=== PATIENT | female | born 1985 | race Caucasian/White ===

== ENCOUNTER 2021-03-28 09:47 | Inpatient (IN) | payer BC ==
[2021-03-27 22:00] VITALS: BP 93/51
[~2021-03-28] VITALS: Ht 162.5 cm; Wt 98.9 kg
[2021-03-28] MEDS ORDERED: ONDANSETRON 4 MG/2 ML (SDV) Z0FRAN IVP ONE (10:30)
--- NOTE | 2021-03-28 10:43 | ED General ---
General Chief Complaint: General Problems/Pain Stated Complaint: POSSIBLE SEPSIS Source of Information: Patient Exam Limitations: No Limitations History of Present Illness Date Seen by Provider: Mar 28, 2021 Time Seen by Provider: 10:37 Initial Comments 36-year-old female to ER from wound care with reports of nausea vomiting diarrhea hypotension. No fevers. Symptoms began 03/24/2021. She resides at [facility] (formerly [facility]) following a prolonged course of intubation for Covid in November of this year initially at [facility] then at [facility] in [place], then back to [facility] and she has been residing at [facility] (formerly [facility]) for about 1 week now. She is being seen by wound care for a sacral ulcer which she believes is healing. She does currently feel nauseated. She has a PICC line but is not receiving infusions in it for a week or so. Timing/Duration: 4-5 Days Severity: Moderate Associated Systoms: Nausea/Vomiting Allergies and Home Medications Allergies Coded Allergies: No Known Drug Allergies (Unverified , 03/28/21) Patient Home Medication List Home Medication List Reviewed: Yes Review of Systems Review of Systems Constitutional: see HPI EENTM: see HPI Respiratory: no symptoms reported Cardiovascular: no symptoms reported Gastrointestinal: No abdominal pain; diarrhea, nausea, vomiting Genitourinary: no symptoms reported Musculoskeletal: no symptoms reported Skin: no symptoms reported Psychiatric/Neurological: No Symptoms Reported Hematologic/Lymphatic: No Symptoms Reported Immunological/Allergic: no symptoms reported Physical Exam Vital Signs Vital Signs - First Documented 03/28/21 10:02 Temp 35.7 Pulse 97 Resp 18 B/P (MAP) 101/70 (80) Pulse Ox 96 O2 Delivery Room Air Capillary Refill : Height, Weight, BMI Height: '" Weight: lbs. oz. kg; BMI Method: General Appearance: No Apparent Distress, WD/WN, Other Eyes: Bilateral Eye Normal Inspection, Bilateral Eye PERRL, Bilateral Eye EOMI Neck: Full Range of Motion, Normal Inspection Respiratory: No Accessory Muscle Use, No Respiratory Distress Cardiovascular: Regular Rate, Rhythm, Normal Peripheral Pulses Gastrointestinal: Normal Bowel Sounds, Non Tender, Soft Extremity: Normal Capillary Refill, Normal Inspection Neurologic/Psychiatric: Alert, Oriented x3 Skin: Normal Color, Warm/Dry Focused Exam Lactate Level 03/28/21 10:37: Lactic Acid Level 3.85*H 03/28/21 12:37: Lactic Acid Level 3.08*H Lactic Acid Level Laboratory Tests Test 03/28/21 10:37 03/28/21 12:37 Lactic Acid Level 3.85 MMOL/L (0.50-2.00) *H 3.08 MMOL/L (0.50-2.00) *H Progress/Results/Core Measures Suspected Sepsis SIRS Temperature: Pulse: Respiratory Rate: Laboratory Tests 03/28/21 10:37: White Blood Count 7.7 Blood Pressure / Mean: 03/28/21 10:37: Lactic Acid Level 3.85*H 03/28/21 12:37: Lactic Acid Level 3.08*H Laboratory Tests 03/28/21 10:37: Creatinine 0.81, INR Comment 1.4, Platelet Count 410H, Total Bilirubin 0.2 Results/Orders Lab Results Laboratory Tests Test 03/28/21 10:37 03/28/21 12:08 03/28/21 12:37 Range/Units White Blood Count 7.7 4.3-11.0 10^3/uL Red Blood Count 3.19 L 3.80-5.11 10^6/uL Hemoglobin 9.5 L 11.5-16.0 g/dL Hematocrit 32 L 35-52 % Mean Corpuscular Volume 99 80-99 fL Mean Corpuscular Hemoglobin 30 25-34 pg Mean Corpuscular Hemoglobin Concent 30 L 32-36 g/dL Red Cell Distribution Width 15.4 H 10.0-14.5 % Platelet Count 410 H 130-400 10^3/uL Mean Platelet Volume 8.7 L 9.0-12.2 fL Immature Granulocyte % (Auto) 0 % Neutrophils (%) (Auto) 66 42-75 % Lymphocytes (%) (Auto) 23 12-44 % Monocytes (%) (Auto) 8 0-12 % Eosinophils (%) (Auto) 2 0-10 % Basophils (%) (Auto) 1 0-10 % Neutrophils # (Auto) 5.1 1.8-7.8 10^3/uL Lymphocytes # (Auto) 1.8 1.0-4.0 10^3/uL Monocytes # (Auto) 0.6 0.0-1.0 10^3/uL Eosinophils # (Auto) 0.2 0.0-0.3 10^3/uL Basophils # (Auto) 0.1 0.0-0.1 10^3/uL Immature Granulocyte # (Auto) 0.0 0.0-0.1 10^3/uL Prothrombin Time 17.7 H 12.2-14.7 SEC INR Comment 1.4 0.8-1.4 Activated Partial Thromboplast Time 30 24-35 SEC Sodium Level 142 135-145 MMOL/L Potassium Level 3.5 L 3.6-5.0 MMOL/L Chloride Level 108 H 98-107 MMOL/L Carbon Dioxide Level 19 L 21-32 MMOL/L Anion Gap 15 H 5-14 MMOL/L Blood Urea Nitrogen 26 H 7-18 MG/DL Creatinine 0.81 0.60-1.30 MG/DL Estimat Glomerular Filtration Rate 79 BUN/Creatinine Ratio 32 Glucose Level 99 70-105 MG/DL Lactic Acid Level 3.85 *H 3.08 *H 0.50-2.00 MMOL/L Calcium Level 7.7 L 8.5-10.1 MG/DL Corrected Calcium 9.3 8.5-10.1 MG/DL Total Bilirubin 0.2 0.1-1.0 MG/DL Aspartate Amino Transf (AST/SGOT) 22 5-34 U/L Alanine Aminotransferase (ALT/SGPT) 19 0-55 U/L Alkaline Phosphatase 132 40-136 U/L Total Protein 4.3 L 6.4-8.2 GM/DL Albumin 2.0 L 3.2-4.5 GM/DL Procalcitonin 0.07 <0.10 NG/ML Urine Color YELLOW Urine Clarity SL CLOUDY Urine pH 6.0 5-9 Urine Specific [place] >=1.030 1.016-1.022 Urine Protein 2+ H NEGATIVE Urine Glucose (UA) TRACE H NEGATIVE Urine Ketones NEGATIVE NEGATIVE Urine Nitrite POSITIVE H NEGATIVE Urine Bilirubin 1+ H NEGATIVE Urine Urobilinogen 1.0 < = 1.0 MG/DL Urine Leukocyte Esterase 1+ H NEGATIVE Urine RBC (Auto) 3+ H NEGATIVE Urine RBC 25-50 H /HPF Urine WBC 50-100 H /HPF Urine Squamous Epithelial Cells NONE /HPF Urine Crystals PRESENT H /LPF Urine Calcium Oxalate Crystals RARE H /LPF Urine Bacteria LARGE H /HPF Urine Casts NONE /LPF Urine Mucus NEGATIVE /LPF Urine Culture Indicated CULTURE PENDING My Orders Orders - LILLIAN BORJA SATELLITE COMMUNICATIONS OPERATOR Cbc With Automated Diff (03/28/21:) Comprehensive Metabolic Panel (03/28/21 10:) Blood Culture (03/28/21:) Sputum Culture (03/28/21) Urinalysis (03/28/21:) Urine Culture (03/28/21) Protime With Inr (03/28/21:) Partial Thromboplastin Time (03/28/21:) Chest 1 View, Ap/Pa Only (03/28/21:) Ed Iv/Invasive Line Start (03/28/21:) Ed Iv/Invasive Line Start (03/28/21:) Vital Signs Adult Sepsis Patie Q15M (03/28/21:) O2 (03/28/21:) Remove Rings In Anticipation O (03/28/21) Lactic Acid Analyzer (03/28/21:) Lactated Ringers (Lr 1000 Ml Iv Solution (03/28/21 10:30) Ondansetron Injection (Zofran Injectio (03/28/21 10:30) Procalcitonin (Pct) (03/28/21 11:11) Lactated Ringers (Lr 1000 Ml Iv Solution (03/28/21 11:15) Lactated Ringers (Lr 1000 Ml Iv Solution (03/28/21 12:30) Ceftriaxone 1 Gm Iv (Pre-Mix) (Rocephin (03/29/21 09:00) Ceftriaxone (Rocephin) (03/28/21 12:35) Water (Sterile) For Injection (Sterile W (03/28/21 12:36) Medications Given in ED Current Medications Medications Dose Ordered Sig/Mindy Route Start Time Stop Time Status Last Admin Dose Admin Ondansetron HCl 4 mg ONCE ONCE IVP 03/28/21 10:30 03/28/21 10:31 DC 03/28/21 10:52 4 MG Vital Signs/I&O 03/28/21 10:02 Temp 35.7 Pulse 97 Resp 18 B/P (MAP) 101/70 (80) Pulse Ox 96 O2 Delivery Room Air Capillary Refill : Departure Communication (Admissions) Family Conversation 1342-patient remains alert and oriented very pleasant. 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 She is very pleasant. Currently blood pressure 93/55 heart rate 87. I suspect she is just volume depleted from nausea and vomiting. She is afebrile. However will admit to trend the lactic acid, hydrate with IV fluids and empirically treat the UTI with Rocephin. Patient is agreeable with this plan. Dr. Frederick agrees to admit. NAME: JAMMIE BUTLER [facility] REC#: [id number] PT STATUS: REG ER : 1985 PHYSICIAN: LILLIAN BORJA APRN ADMIT DATE: 03/28/21/ER Draft Date of Exam:03/28/21 CHEST 1 VIEW, AP/PA ONLY EXAMINATION: Chest 1 view HISTORY: sepsis COMPARISON: None available. FINDINGS: Heart size and pulmonary vasculature are normal. The lungs are clear without consolidation, pleural effusion, or pneumothorax. The osseous structures are intact. A right-sided PICC line is present with the tip projecting over the right brachiocephalic junction. IMPRESSION: 1. No acute radiographic abnormality in the chest. Dictated on workstation # [id number] Dict: 03/28/21 1121 Trans: 03/28/[address] [place] [address] [id number] Interpreted by: SHANNAN ARNETT DO Electronically signed by: Impression Primary Impression: Urinary tract infection Additional Impression: Sepsis Disposition: 01 HOME, SELF-CARE Condition: Stable Admissions Decision to Admit Reason: Admit from ER (General) Decision to Admit/Date: Mar 28, 2021 Time/Decision to Admit Time: 13:43 Departure-Patient Inst. Decision time for Depature: 13:02 Referrals: ELIANE JOSÉ MD (PCP/Family) Primary Care Physician Patient Instructions: Urinary Tract Infection, Adult (DC) LILLIAN BORJA APRN Mar 28, 2021 10:43
[2021-03-28 10:48] LABS: BASOPHILS # (AUTO) 0.1 10^3/uL (0.0-0.1); BASOPHILS % (AUTO) 1 % (0-10); EOSINOPHILS # (AUTO) 0.2 10^3/uL (0.0-0.3); EOSINOPHILS % (AUTO) 2 % (0-10); HEMATOCRIT 32 % (35-52); HEMOGLOBIN 9.5 g/dL (11.5-16.0); LYMPHOCYTES # (AUTO) 1.8 10^3/uL (1.0-4.0); LYMPHOCYTES % (AUTO) 23 % (12-44); MEAN CORPUSCULAR HEMOGLOBIN 30 pg (25-34); MEAN CORPUSCULAR HGB CONC 30 g/dL (32-36); MEAN CORPUSCULAR VOLUME 99 fL (80-99); MEAN PLATELET VOLUME 8.7 fL (9.0-12.2); MONOCYTES # (AUTO) 0.6 10^3/uL (0.0-1.0); MONOCYTES % (AUTO) 8 % (0-12); NEUTROPHILS # (AUTO) 5.1 10^3/uL (1.8-7.8); NEUTROPHILS % (AUTO) 66 % (42-75); PLATELET COUNT 410 10^3/uL (130-400); WHITE BLOOD COUNT 7.7 10^3/uL (4.3-11.0)
[2021-03-28] MEDS: LACTATED RINGERS 1,000 ML IV SCH ×4 (10:52→20:09)
[2021-03-28 11:01] LABS: POTASSIUM 3.5 MMOL/L (3.6-5.0)
[2021-03-28 11:02] LABS: CALCIUM 7.7 MG/DL (8.5-10.1)
[2021-03-28 11:04] LABS: TOTAL PROTEIN 4.3 GM/DL (6.4-8.2)
[2021-03-28 11:05] LABS: BILIRUBIN,TOTAL 0.2 MG/DL (0.1-1.0)
[2021-03-28 11:06] LABS: INR 1.4 (0.8-1.4); PROTHROMBIN TIME PATIENT 17.7 SEC (12.2-14.7)
[2021-03-28 11:07] LABS: CREATININE SERUM 0.81 MG/DL (0.60-1.30)
[2021-03-28] MEDS ORDERED: LACTATED RINGERS 1,000 ML IV SCH ×2 (11:15→12:30)
--- NOTE | 2021-03-28 11:25 | Diagnostic Imaging Report ---
EXAMINATION: Chest 1 view HISTORY: sepsis COMPARISON: None available. FINDINGS: Heart size and pulmonary vasculature are normal. The lungs are clear without consolidation, pleural effusion, or pneumothorax. The osseous structures are intact. A right-sided PICC line is present with the tip projecting over the right brachiocephalic junction. IMPRESSION: 1. No acute radiographic abnormality in the chest. Dictated by: Dictated on workstation # [id number]
[2021-03-28 12:14] LABS: CLARITY,URINE SL CLOUDY; COLOR,URINE YELLOW; GLUCOSE, URINE (UA) TRACE (NEGATIVE); KETONES,URINE NEGATIVE (NEGATIVE); LEUKOCYTE ESTERASE ,URINE 1+ (NEGATIVE); NITRITE,URINE POSITIVE (NEGATIVE); PROTEIN,URINE 2+ (NEGATIVE)
[2021-03-28 12:22] LABS: BACTERIA,URINE LARGE /HPF; BILIRUBIN,URINE 1+ (NEGATIVE); CALCIUM OXALATE CRYSTALS,UR RARE /LPF; RBC,URINE 25-50 /HPF; WBC,URINE 50-100 /HPF
[2021-03-28] MEDS ORDERED: cefTRIAXone 1,000 MG VIAL ONE (12:35)
[2021-03-28] MEDS ORDERED: WATER (STERILE) FOR INJECTION 10 ML ONE (12:36)
[2021-03-28] MEDS ORDERED: MICO14CR7 TP (15:32)
[2021-03-28] MEDS ORDERED: OXYB5TAB13 PO (15:32)
[2021-03-28] MEDS ORDERED: LACT1CAP7 PO (15:32)
[2021-03-28] MEDS ORDERED: SERT-413 PO (15:32)
[2021-03-28] MEDS ORDERED: RT-ALBUINH IH (15:32)
[2021-03-28] MEDS ORDERED: FERR325T5 PO (15:32)
[2021-03-28] MEDS ORDERED: APIX5TAB PO (15:32)
[2021-03-28] MEDS ORDERED: ATEN25TA PO (15:32)
[2021-03-28] MEDS ORDERED: MULT-1136 PO (15:32)
[2021-03-28] MEDS ORDERED: HYDR-3817 PO (15:32)
[2021-03-28] MEDS ORDERED: ACET325T38 PO (15:32)
[2021-03-28] MEDS ORDERED: LOPE2TAB48 PO (15:32)
[2021-03-28] MEDS ORDERED: NALO4SPR (15:32)
[2021-03-28] MEDS ORDERED: ONDA4TAB11 PO (15:32)
[2021-03-28] MEDS ORDERED: ATOR40TA70 PO (15:32)
[2021-03-28] MEDS ORDERED: MESA250C PO (15:32)
[2021-03-28] MEDS ORDERED: MELA5TAB14 PO (15:32)
[2021-03-28] MEDS ORDERED: ERGO1250 PO (15:32)
[2021-03-28] MEDS ORDERED: ASPI-999 PO (15:32)
[2021-03-28] MEDS ORDERED: COLL30OI TP (15:36)
[2021-03-28] MEDS ORDERED: BALS60OI TP (15:36)
[2021-03-28 16:00] VITALS: BP 104/69
[2021-03-28 20:08] VITALS: BP 97/61
[2021-03-28 22:20] VITALS: BP 94/59
[2021-03-28 23:36] VITALS: BP 89/54
[2021-03-28] MEDS ORDERED: NS IV 1000 ML 1,000 ML ONE (23:51)
[2021-03-28 23:57] VITALS: BP 96/58
[2021-03-29] MEDS ORDERED: NS IV 1000 ML 1,000 ML IV ONE
[2021-03-29 00:19] VITALS: BP 91/55
[2021-03-29 00:37] VITALS: BP 92/58
[2021-03-29 00:51] VITALS: BP 86/42
[2021-03-29 00:58] VITALS: BP 80/54
[2021-03-29] MEDS: ONDANSETRON 4 MG/2 ML (SDV) Z0FRAN IVP PRN ×2 (01:31→13:27)
[2021-03-29 02:38] LABS: BILIRUBIN,URINE NEGATIVE (NEGATIVE); CLARITY,URINE SL CLOUDY; COLOR,URINE YELLOW; GLUCOSE, URINE (UA) NEGATIVE (NEGATIVE); KETONES,URINE NEGATIVE (NEGATIVE); LEUKOCYTE ESTERASE ,URINE 3+ (NEGATIVE); NITRITE,URINE POSITIVE (NEGATIVE); PROTEIN,URINE 1+ (NEGATIVE)
[2021-03-29 02:49] LABS: BACTERIA,URINE MODERATE /HPF; SQUAMOUS EPITHELIAL CELL,UR 0-2 /HPF; WBC,URINE 25-50 /HPF
[2021-03-29 05:42] LABS: BASOPHILS % (AUTO) 0 % (0-10); EOSINOPHILS # (AUTO) 0.2 10^3/uL (0.0-0.3); EOSINOPHILS % (AUTO) 5 % (0-10); HEMATOCRIT 25 % (35-52); HEMOGLOBIN 7.4 g/dL (11.5-16.0); LYMPHOCYTES # (AUTO) 0.7 10^3/uL (1.0-4.0); LYMPHOCYTES % (AUTO) 14 % (12-44); MEAN CORPUSCULAR HEMOGLOBIN 30 pg (25-34); MEAN CORPUSCULAR HGB CONC 30 g/dL (32-36); MEAN CORPUSCULAR VOLUME 100 fL (80-99); MEAN PLATELET VOLUME 8.8 fL (9.0-12.2); MONOCYTES # (AUTO) 0.4 10^3/uL (0.0-1.0); MONOCYTES % (AUTO) 8 % (0-12); NEUTROPHILS # (AUTO) 3.7 10^3/uL (1.8-7.8); NEUTROPHILS % (AUTO) 73 % (42-75); PLATELET COUNT 302 10^3/uL (130-400); WHITE BLOOD COUNT 5.1 10^3/uL (4.3-11.0)
[2021-03-29 05:56] LABS: ALBUMIN 1.5 GM/DL (3.2-4.5); POTASSIUM 3.4 MMOL/L (3.6-5.0)
[2021-03-29 05:57] LABS: CALCIUM 6.8 MG/DL (8.5-10.1)
[2021-03-29 05:59] LABS: TOTAL PROTEIN 3.3 GM/DL (6.4-8.2)
[2021-03-29 06:00] LABS: BILIRUBIN,TOTAL 0.2 MG/DL (0.1-1.0)
[2021-03-29 06:02] LABS: CREATININE SERUM 0.61 MG/DL (0.60-1.30); PHOSPHORUS 4.2 MG/DL (2.3-4.7)
[2021-03-29 06:05] LABS: MAGNESIUM 1.2 MG/DL (1.6-2.4)
[2021-03-29] MEDS ORDERED: MAGNESIUM 1 GM/100 ML IVPB 400 ML IV ONE (06:14)
[2021-03-29] MEDS ORDERED: POTASSIUM CL 10MEQ/50ML IVPB 100 ML IV ONE (06:14)
[2021-03-29] MEDS: POTASSIUM CL 10MEQ/50ML IVPB 50 ML IV SCH ×2 (06:23→08:46)
[2021-03-29] MEDS: MAGNESIUM 1 GM/100 ML IVPB 100 ML IV SCH ×3 (06:23→08:47)
[2021-03-29] MEDS: LACTATED RINGERS 1,000 ML IV SCH ×3 (06:24→18:15)
[2021-03-29] MEDS ORDERED: cefTRIAXone 1 GM PRE-MIX 50 ML IV SCH (09:00)
[2021-03-29] MEDS ORDERED: ALBUMIN 25% 25 GM/100 ML 100 ML IV PRN (09:45)
--- NOTE | 2021-03-29 09:50 | Tele-ICU Consult ---
History of Present Illness History of Present Illness Date Seen by Provider: Mar 29, 2021 Time Seen by Provider: 09:50 Date of Admission Allergies and Home Medications Allergies Coded Allergies: No Known Drug Allergies (Unverified , 03/28/21) Home Medications Acetaminophen 325 Mg Tablet, 650 MG PO Q4H PRN for PAIN-MILD (1-4), (Reported) Albuterol Sulfate 1 Puff Puff, 2 PUFF IH Q6H PRN for SHORTNESS OF BREATH, (Reported) Apixaban 5 Mg Tablet, 5 MG PO BID, (Reported) Aspirin 81 Mg Tab.chew, 81 MG PO DAILY, (Reported) Atenolol 25 Mg Tablet, 25 MG PO BID, (Reported) HOLD FOR SBP <100 OR PULSE <60 Atorvastatin Calcium 40 Mg Tablet, 40 MG PO HS, (Reported) Balsam [place] Oil 60 Gm Oint...g., 1 APPLIC TP UD, (Reported) APPLY TO SACRUM WITH EVERY SHIFT CHANGE Collagenase 30 Gm Oint..gm., 1 APPLIC TP BID, (Reported) APPLY TO SACRAL WOUND EVERY DAY AND MARKETER Ergocalciferol (Vitamin D2) 1,250 Mcg Capsule, 1,250 MCG PO MON, (Reported) Ferrous Sulfate 325 Mg Tablet.dr, 325 MG PO DAILY, (Reported) Hydrocodone/Acetaminophen 1 Each Tablet, 1 EACH PO QID, (Reported) Lactobacillus Acidophilus/Pect 1 Each Capsule, 1 EACH PO BID, (Reported) Loperamide HCl 2 Mg Tablet, 2 MG PO DAILY, (Reported) Melatonin 5 Mg Tablet, 5 MG PO HS, (Reported) Mesalamine 250 Mg Capsule.er, 250 MG PO TID, (Reported) Miconazole Nitrate 14 Gm Cream..g., 1 APPLIC TP Q8H PRN for YEAST, (Reported) Multivitamin 1 Each Tablet, 1 EACH PO DAILY, (Reported) Naloxone HCl 4 Mg Reform, 1 SPRAYS NA UD PRN for OVERDOSE, (Reported) USE 1 SPRAY IN 1 NOSTRIL AND MAY REPEAT ALTERNATING NOSTRIL EVERY 2-3 MINUTES UNTIL RESPONSIVE OR EMS ARRIVES Ondansetron 4 Mg Tab.rapdis, 4 MG PO Q8H PRN for NAUSEA/VOMITING-1ST LINE, (Reported) Oxybutynin Chloride 5 Mg Tablet, 5 MG PO TID, (Reported) Sertraline HCl 50 Mg Tablet, 50 MG PO DAILY, (Reported) Past Medical/Social/Family Hx Patient Social History Tobacco Use?: No Substance use?: No Alcohol Use?: No Pt stated abuse/neglect: No Immunizations Up To Date Influenza Vaccine Up-to-Date: No; Not Current Tetanus Booster (TDap): Less Than 5 Years Hepatitis A: Yes Hepatitis B: Yes TB Skin Test: Negative Current Status status: No status: No Advance Directives: No Primary Language: Bruneian Preferred Spoken Language: Bruneian Review of Systems Constitutional: see HPI Sepsis Event Evaluation Height, Weight, BMI Height: '" Weight: lbs. oz. kg; 32.94 BMI Method: Exam Exam Patient acknowledged, consented, and participated in this virtual visit which was conducted using real time audio/video Vital Signs Date Time Temp Pulse Resp B/P (MAP) Pulse Ox O2 Delivery O2 Flow Rate FiO2 03/29/21 08:23 36.6 03/29/21 07:00 109 03/29/21 06:00 103 20 80/36 99 Nasal Cannula 1.00 03/29/21 05:00 95 20 102/85 98 Nasal Cannula 1.00 03/29/21 04:00 104 20 101/53 98 Nasal Cannula 1.00 03/29/21 03:33 36.4 03/29/21 03:00 107 23 98/50 98 Nasal Cannula 1.00 03/29/21 02:45 107 22 90/47 99 Nasal Cannula 1.00 03/29/21 02:30 106 22 76/56 98 Nasal Cannula 1.00 03/29/21 02:22 Nasal Cannula 1.00 03/29/21 02:15 110 20 96/48 99 Nasal Cannula 2.00 03/29/21 02:00 113 17 99/56 100 Nasal Cannula 2.00 03/29/21 01:10 38.2 122 16 99/52 97 Nasal Cannula 2.00 03/29/21 01:00 109 03/29/21 00:58 80/54 (63) 03/29/21 00:51 107 86/42 (57) 03/29/21 00:37 109 92/58 (69) 03/29/21 00:19 115 91/55 (67) 03/28/21 23:57 109 96/58 (71) 03/28/21 23:36 37.5 110 16 89/54 (66) 97 Nasal Cannula 2.00 03/28/21 22:57 Nasal Cannula 2.00 03/28/21 22:20 109 18 94/59 (71) Nasal Cannula 2.00 03/28/21 20:08 37.0 99 20 97/61 (73) 97 Nasal Cannula 2.00 03/28/21 20:00 Nasal Cannula 2.00 03/28/21 19:00 97 03/28/21 16:00 36.6 74 20 104/69 (81) 100 Nasal Cannula 2.00 03/28/21 15:51 Room Air 03/28/21 13:58 65 18 92/55 94 Nasal Cannula 2.00 03/28/21 11:00 86 18 101/94 95 Room Air 03/28/21 10:02 35.7 97 18 101/70 (80) 96 Room Air I & O 03/29/21 07:00 Intake Total 4200 ml Output Total 950 ml Balance 3250 ml Height & Weight Height: '" Weight: lbs. oz. kg; 32.94 BMI Method: General Appearance: No Apparent Distress, WD/WN, Other Neck: Full Range of Motion, Normal Inspection Respiratory: No Accessory Muscle Use, No Respiratory Distress Cardiovascular: Regular Rate, Rhythm, Normal Peripheral Pulses Capillary Refill: Less Than 3 Seconds Extremity: Normal Capillary Refill, Normal Inspection Neurologic/Psychiatric: Alert, Oriented x3 Skin: Normal Color, Warm/Dry Results Lab Laboratory Tests 03/28/21 10:37 03/29/21 05:35 Assessment/Plan Assessment/Plan (Tele-ICU Physician , consultation) Available chart/ vitals / labs / Images reviewed H&P is from ER notes Patient's information available about PMH, Shx, Fhx allergy reviewed in EMR. ROS as per chart and RN report Now in ICU, hemodynamically stable Video assessment done using teleICU camera, rest of exam as per RN Discussed with RN. Consultants: Hospital course: 03/29-nausea vomiting diarrhea hypotension. A/P Severe sepsis, Infection source is not immediately obvious . +UTI, wound , diarrhea -Received 2000 ml crystalloids for hypotension and lactate. -Continue hydration - ? recentlt stopped steroids - ? drenal insufficiency Suspected UTI -chronic thornton =- replaced on ER 03/29 - empirically treat the UTI with Rocephin 03/29 Diarrhea -not in hospital Anemia - Hb drop frpm 9.5 to 7.4 , most likely with hydration - follow on Eliquis Coagulopathy - mild- INR 1.4 --on Eliquis and ASA - ? inducation- ? post covid S/p prolonged course of intubation for Covid in November - extubated sacral ulcer stage IV - wound team to follow up start nutritions Lines : periph (Central Line Necessity Reviewed) Thornton: chronic thornton =- replaced on ER 03/29 OG: Nutrition: po Analgesia: Anxiety/ delirium VTE Prophylaxis: eliquis Stress Ulcer Prophylaxis: po Glycemic Control: Plans in collaboration with bedside consultants and IM MDs. Discussed with RN to reach out if any questions or concerns A total of 33 minutes of critical care time was devoted to this patient today, required to treat and/or prevent further deterioration of critical care condition ( as above ) . NEHA CARVAJAL MD Mar 29, 2021 09:50
--- NOTE | 2021-03-29 10:07 | History & Physical ---
HPI History of Present Illness: 36 yo F that had has a complicated course after covid in October. Patient was admitted for several weeks then spent 6 weeks in [place] before being discharged to SNF. She has lost over 100# since her covid infection. She presented with N/V with multiple possible sources of infection. Patient had a PICC line that she was not using, she had medical delivery driver thornton in place and has a sacral wound. States that she feels much better this AM after starting IV antibiotics and fluids. Source: patient Exam Limitations: no limitations Date seen by provider: Mar 29, 2021 Time Seen by Provider: 09:50 Attending Physician Rae Ge MD PCP Bobby Frank MD Consult Date of Admission Mar 28, 2021 at 12:52 Home Medications Home Medications Reviewed patient Home Medication Reconciliation performed by pharmacy medication reconciliations avionics test technician and/or nursing. Patients Allergies have been reviewed. Allergies Coded Allergies: No Known Drug Allergies (Unverified , 03/28/21) WYM-Tipfvv-Cctixi Hx Patient Social History Alcohol Use?: No Have you traveled recently?: No Past Medical History Post Covid Syndrome Chronic Indwelling catheter Sacral wound NIDDM Review of Systems (CHC) Constitutional: chills; No fever; malaise EENTM: no symptoms reported; No mouth pain, No nose congestion, No nose pain Respiratory: No cough, No dyspnea on exertion; short of breath Cardiovascular: no symptoms reported; No chest pain, No edema Gastrointestinal: abdominal pain; No constipation, No diarrhea; loss of appetite, nausea, vomiting Musculoskeletal: back pain; No joint pain, No muscle pain Skin: other (Pressure ulcer present on admission) Psychiatric/Neurological: Weakness Reviewed Test Results Reviewed Test Results Lab Laboratory Tests Test 03/29/21 02:05 03/29/21 05:35 03/29/21 16:30 Range/Units Urine Color YELLOW Urine Clarity SL CLOUDY Urine pH 7.0 5-9 Urine Specific [place] 1.010 L 1.016-1.022 Urine Protein 1+ H NEGATIVE Urine Glucose (UA) NEGATIVE NEGATIVE Urine Ketones NEGATIVE NEGATIVE Urine Nitrite POSITIVE H NEGATIVE Urine Bilirubin NEGATIVE NEGATIVE Urine Urobilinogen 0.2 < = 1.0 MG/DL Urine Leukocyte Esterase 3+ H NEGATIVE Urine RBC (Auto) 2+ H NEGATIVE Urine RBC 5-10 H /HPF Urine WBC 25-50 H /HPF Urine Squamous Epithelial Cells 0-2 /HPF Urine Crystals NONE /LPF Urine Bacteria MODERATE H /HPF Urine Casts NONE /LPF Urine Mucus NEGATIVE /LPF Urine Culture Indicated YES White Blood Count 5.1 4.3-11.0 10^3/uL Red Blood Count 2.50 L 3.80-5.11 10^6/uL Hemoglobin 7.4 #L 11.5-16.0 g/dL Hematocrit 25 L 35-52 % Mean Corpuscular Volume 100 H 80-99 fL Mean Corpuscular Hemoglobin 30 25-34 pg Mean Corpuscular Hemoglobin Concent 30 L 32-36 g/dL Red Cell Distribution Width 15.7 H 10.0-14.5 % Platelet Count 302 130-400 10^3/uL Mean Platelet Volume 8.8 L 9.0-12.2 fL Immature Granulocyte % (Auto) 0 % Neutrophils (%) (Auto) 73 42-75 % Lymphocytes (%) (Auto) 14 12-44 % Monocytes (%) (Auto) 8 0-12 % Eosinophils (%) (Auto) 5 0-10 % Basophils (%) (Auto) 0 0-10 % Neutrophils # (Auto) 3.7 1.8-7.8 10^3/uL Lymphocytes # (Auto) 0.7 L 1.0-4.0 10^3/uL Monocytes # (Auto) 0.4 0.0-1.0 10^3/uL Eosinophils # (Auto) 0.2 0.0-0.3 10^3/uL Basophils # (Auto) 0.0 0.0-0.1 10^3/uL Immature Granulocyte # (Auto) 0.0 0.0-0.1 10^3/uL Sodium Level 141 135-145 MMOL/L Potassium Level 3.4 L 3.6-5.0 MMOL/L Chloride Level 110 H 98-107 MMOL/L Carbon Dioxide Level 21 21-32 MMOL/L Anion Gap 10 5-14 MMOL/L Blood Urea Nitrogen 15 7-18 MG/DL Creatinine 0.61 0.60-1.30 MG/DL Estimat Glomerular Filtration Rate 110 BUN/Creatinine Ratio 25 Glucose Level 75 70-105 MG/DL Calcium Level 6.8 L 8.5-10.1 MG/DL Corrected Calcium 8.8 8.5-10.1 MG/DL Phosphorus Level 4.2 2.3-4.7 MG/DL Magnesium Level 1.2 L 1.6-2.4 MG/DL Total Bilirubin 0.2 0.1-1.0 MG/DL Aspartate Amino Transf (AST/SGOT) 17 5-34 U/L Alanine Aminotransferase (ALT/SGPT) 10 0-55 U/L Alkaline Phosphatase 100 40-136 U/L Total Protein 3.3 L 6.4-8.2 GM/DL Albumin 1.5 #L 3.2-4.5 GM/DL Physical Exam-(CHC) Physical Exam Vital Signs VS - Last 72 Hours, by Label 03/28/21 03/28/21 03/28/21 03/28/21 10:02 11:00 13:58 15:51 Temp 35.7 Pulse 97 86 65 Resp 18 18 18 B/P (MAP) 101/70 (80) 101/94 92/55 Pulse Ox 96 95 94 O2 Delivery Room Air Room Air Nasal Cannula Room Air O2 Flow Rate 2.00 03/28/21 03/28/21 03/28/21 03/28/21 16:00 19:00 20:00 20:08 Temp 36.6 37.0 Pulse 74 97 99 Resp 20 20 B/P (MAP) 104/69 (81) 97/61 (73) Pulse Ox 100 97 O2 Delivery Nasal Cannula Nasal Cannula Nasal Cannula O2 Flow Rate 2.00 2.00 2.00 03/28/21 03/28/21 03/28/21 03/28/21 22:20 22:57 23:36 23:57 Temp 37.5 Pulse 109 110 109 Resp 18 16 B/P (MAP) 94/59 (71) 89/54 (66) 96/58 (71) Pulse Ox 97 O2 Delivery Nasal Cannula Nasal Cannula Nasal Cannula O2 Flow Rate 2.00 2.00 2.00 03/29/21 03/29/21 03/29/21 03/29/21 00:19 00:37 00:51 00:58 Pulse 115 109 107 B/P (MAP) 91/55 (67) 92/58 (69) 86/42 (57) 80/54 (63) 03/29/21 03/29/21 03/29/21 03/29/21 01:00 01:10 02:00 02:15 Temp 38.2 Pulse 109 122 113 110 Resp 16 17 20 B/P (MAP) 99/52 99/56 96/48 Pulse Ox 97 100 99 O2 Delivery Nasal Cannula Nasal Cannula Nasal Cannula O2 Flow Rate 2.00 2.00 2.00 03/29/21 03/29/21 03/29/21 03/29/21 02:22 02:30 02:45 03:00 Pulse 106 107 107 Resp 22 22 23 B/P (MAP) 76/56 90/47 98/50 Pulse Ox 98 99 98 O2 Delivery Nasal Cannula Nasal Cannula Nasal Cannula Nasal Cannula O2 Flow Rate 1.00 1.00 1.00 1.00 03/29/21 03/29/21 03/29/21 03/29/21 03:33 04:00 05:00 06:00 Temp 36.4 Pulse 104 95 103 Resp 20 20 20 B/P (MAP) 101/53 102/85 80/36 Pulse Ox 98 98 99 O2 Delivery Nasal Cannula Nasal Cannula Nasal Cannula O2 Flow Rate 1.00 1.00 1.00 03/29/21 03/29/21 03/29/21 03/29/21 07:00 07:00 07:15 07:30 Pulse 109 100 101 103 Resp 9 8 19 B/P (MAP) 87/50 88/46 92/41 Pulse Ox 100 99 100 O2 Delivery Nasal Cannula Nasal Cannula Nasal Cannula O2 Flow Rate 1.00 1.00 1.00 03/29/21 03/29/21 03/29/21 03/29/21 07:45 08:00 08:00 08:15 Pulse 101 114 94 Resp 13 26 19 B/P (MAP) 90/42 93/48 91/44 Pulse Ox 99 99 99 O2 Delivery Nasal Cannula Room Air Nasal Cannula Nasal Cannula O2 Flow Rate 1.00 1.00 1.00 03/29/21 03/29/21 03/29/21 03/29/21 08:23 08:30 08:45 09:00 Temp 36.6 Pulse 106 98 86 Resp 17 14 14 B/P (MAP) 93/54 96/47 89/46 Pulse Ox 100 100 100 O2 Delivery Nasal Cannula Nasal Cannula Nasal Cannula O2 Flow Rate 1.00 1.00 1.00 03/29/21 03/29/21 03/29/21 03/29/21 09:15 09:30 09:45 10:00 Pulse 94 95 75 105 Resp 20 19 11 15 B/P (MAP) 94/46 94/46 91/49 99/50 Pulse Ox 100 100 100 98 O2 Delivery Nasal Cannula Nasal Cannula Nasal Cannula Nasal Cannula O2 Flow Rate 1.00 1.00 1.00 1.00 03/29/21 03/29/21 03/29/21 03/29/21 10:15 10:30 10:45 11:00 Pulse 116 112 122 125 Resp 12 8 23 15 B/P (MAP) 98/64 85/40 86/50 109/47 Pulse Ox 97 96 97 98 O2 Delivery Nasal Cannula Nasal Cannula Nasal Cannula Nasal Cannula O2 Flow Rate 1.00 1.00 1.00 1.00 03/29/21 03/29/21 03/29/21 03/29/21 11:15 11:30 11:45 11:53 Temp 36.8 Pulse 101 102 Resp 10 0 B/P (MAP) 91/56 87/59 105/49 Pulse Ox 97 96 O2 Delivery Nasal Cannula Nasal Cannula O2 Flow Rate 1.00 1.00 03/29/21 03/29/21 03/29/21 03/29/21 12:00 12:15 12:30 12:45 Pulse 105 97 101 101 Resp 15 11 18 15 B/P (MAP) 121/52 Pulse Ox 95 97 95 96 O2 Delivery Nasal Cannula Nasal Cannula Nasal Cannula Nasal Cannula O2 Flow Rate 1.00 1.00 1.00 1.00 03/29/21 03/29/21 03/29/21 03/29/21 13:00 13:00 13:15 13:30 Pulse 116 99 100 111 Resp 7 7 15 B/P (MAP) 85/46 104/58 Pulse Ox 98 95 98 O2 Delivery Nasal Cannula Nasal Cannula Nasal Cannula O2 Flow Rate 1.00 1.00 1.00 03/29/21 03/29/21 03/29/21 03/29/21 13:45 14:00 14:15 14:30 Pulse 107 105 107 144 Resp 13 20 20 18 B/P (MAP) 102/62 93/50 98/44 108/47 Pulse Ox 95 99 88 94 O2 Delivery Nasal Cannula Nasal Cannula Nasal Cannula Nasal Cannula O2 Flow Rate 1.00 1.00 1.00 1.00 03/29/21 03/29/21 03/29/21 03/29/21 14:45 15:00 16:00 16:32 Temp 36.5 Pulse 129 122 112 Resp 17 23 24 B/P (MAP) 105/58 102/55 101/54 Pulse Ox 95 94 100 O2 Delivery Nasal Cannula Nasal Cannula Nasal Cannula O2 Flow Rate 1.00 1.00 1.00 Capillary Refill : Less Than 3 Seconds General Appearance: WD/WN, no apparent distress, obese HEENT: PERRL/EOMI Neck: non-tender, full range of motion, supple Respiratory: chest non-tender, lungs clear, normal breath sounds, no respiratory distress, no accessory muscle use Cardiovascular: normal peripheral pulses, regular rate, rhythm, no murmur Gastrointestinal: normal bowel sounds, soft, tenderness (+ suprapubic pain with palpation) Extremities: non-tender, no calf tenderness, other (PICC present in RUE) Skin: other (Stage IV sacral wound with necrotic tissue) Assessment/Plan Assessment/Plan Admission Status: Inpatient Order (span 2 midnights) Reason for Inpatient Admission: Needs IV antibiotics and close monitoring, high risk of decompensation (1) Severe sepsis Status: Acute Assessment & Plan: - Sepsis IVF protocol, hypotension responds well to fliuds, started on Rocephin for UTI, added broad spectrum for concerns for osteomyelisis in Sacral wound, PICC was pulled and cath tip cultured (2) UTI (urinary tract infection) Assessment & Plan: - Thornton catheter replaced upon admission, C/s pending Qualifiers: Qualified Codes: T83.511D - Infection and inflammatory reaction due to indwelling urethral catheter, subsequent encounter; N39.0 - Urinary tract infection, site not specified (3) Sacral decubitus ulcer, stage IV Status: Chronic Assessment & Plan: - wound Care and surgery consulted, antibiotics broadened, bone bx performed by wound care (4) Post covid-19 condition, unspecified Status: Chronic RAE GE MD Mar 29, 2021 10:07
[2021-03-29] MEDS ORDERED: cefTRIAXone 1 GM IV (PRE-MIX) 50 ML IV SCH (12:00)
[2021-03-29] MEDS ORDERED: PROMETHAZINE INJ 25 MG/ML (PHENERGAN) AMP ONE (14:29)
[2021-03-29] MEDS ORDERED: PROMETHAZINE INJ 25 MG/ML (PHENERGAN) AMP IVP PRN (14:30)
[2021-03-29] MEDS ORDERED: HYPOCHLOROUS ACID/NaCl (VASHE) 250 ML IR SCH (15:00)
[2021-03-29] MEDS ORDERED: HYPOCHLOROUS ACID/NaCl (VASHE) 250 ML IR PRN (15:15)
--- NOTE | 2021-03-29 16:47 | Consultation - Surgery ---
YUDELKA MINER 03/29/21 1647: History of Present Illness History of Present Illness Patient Consulted On(juventino/time) 03/29/21 16:45 Date Seen by Provider: Mar 29, 2021 Time Seen by Provider: 16:35 Reason for Visit: Sacral Ulcer History of Present Illness Pt is being consulted by surgery for a sacral ulcer. Pt was extremely tired when I visited her and had minimal responses to questions. Said that she has had her sacral ulcer since her COVID hospitalization in November History per ED: 36-year-old female to ER from wound care with reports of nausea vomiting diarrhea hypotension. No fevers. Symptoms began 03/24/2021. She resides at [facility] following a prolonged course of intubation for Covid in November of this year initially at [facility] then at [facility] in [place], then back to [facility] and she has been residing at [facility] for about 1 week now. She is being seen by wound care for a sacral ulcer which she believes is healing. Allergies and Home Medications Allergies Coded Allergies: No Known Drug Allergies (Unverified , 03/28/21) Patient Home Medication List Acetaminophen (Tylenol) 325 Mg Tablet, 650 MG PO Q4H PRN for PAIN-MILD (1-4), (Reported) Entered as Reported by: ANA ESCOTO on 03/28/211531 Last Action: Reviewed Albuterol Sulfate (Proair Hfa) 1 Puff Puff, 2 PUFF IH Q6H PRN for SHORTNESS OF BREATH, (Reported) Entered as Reported by: ANA ESCOTO on 03/28/211531 Last Action: Reviewed Apixaban (Eliquis) 5 Mg Tablet, 5 MG PO BID, (Reported) Entered as Reported by: ANA ESCOTO on 03/28/211531 Last Action: Reviewed Aspirin (Aspirin) 81 Mg Tab.chew, 81 MG PO DAILY, (Reported) Entered as Reported by: ANA ESCOTO on 03/28/211531 Last Action: Continued Atenolol (Atenolol) 25 Mg Tablet, 25 MG PO BID, (Reported) Entered as Reported by: ANA ESCOTO on 03/28/211531 Last Action: Reviewed Atorvastatin Calcium (Atorvastatin Calcium) 40 Mg Tablet, 40 MG PO HS, (Reported) Entered as Reported by: ANA ESCOTO on 03/28/211531 Last Action: Continued Balsam [place]/Mandan Oil (Venelex Ointment) 60 Gm Oint...g., 1 APPLIC TP UD, (Reported) Entered as Reported by: ANA ESCOTO on 03/28/211535 Last Action: Reviewed Collagenase (Santyl) 30 Gm Oint..gm., 1 APPLIC TP BID, (Reported) Entered as Reported by: ANA ESCOTO on 03/28/211535 Last Action: Reviewed Ergocalciferol (Vitamin D2) (Vitamin D2) 1,250 Mcg Capsule, 1,250 MCG PO MON, (Reported) Entered as Reported by: ANA ESCOTO on 03/28/211531 Last Action: Reviewed Ferrous Sulfate (Ferrous Sulfate) 325 Mg Tablet.dr, 325 MG PO DAILY, (Reported) Entered as Reported by: ANA ESCOTO on 03/28/211531 Last Action: Reviewed Hydrocodone/Acetaminophen (Hydrocodone-Acetamin 7.5-325) 1 Each Tablet, 1 EACH PO QID, (Reported) Entered as Reported by: ANA ESCOTO on 03/28/211531 Last Action: Reviewed Lactobacillus Acidophilus/Pect (Acidophilus-Pectin Capsule) 1 Each Capsule, 1 EACH PO BID, (Reported) Entered as Reported by: ANA ESCOTO on 03/28/211531 Last Action: Reviewed Loperamide HCl (Ultra A-D) 2 Mg Tablet, 2 MG PO DAILY, (Reported) Entered as Reported by: ANA ESCOTO on 03/28/211531 Last Action: Reviewed Melatonin (Melatonin) 5 Mg Tablet, 5 MG PO HS, (Reported) Entered as Reported by: ANA ESCOTO on 03/28/211531 Last Action: Reviewed Mesalamine (Pentasa) 250 Mg Capsule.er, 250 MG PO TID, (Reported) Entered as Reported by: ANA ESCOTO on 03/28/211531 Last Action: Reviewed Miconazole Nitrate (Antifungal Cream) 14 Gm Cream..g., 1 APPLIC TP Q8H PRN for YEAST, (Reported) Entered as Reported by: ANA ESCOTO on 03/28/211531 Last Action: Reviewed Multivitamin (Multivitamin) 1 Each Tablet, 1 EACH PO DAILY, (Reported) Entered as Reported by: ANA ESCOTO on 03/28/211531 Last Action: Reviewed Naloxone HCl (Narcan) 4 Mg [place], 1 SPRAYS NA UD PRN for OVERDOSE, (Reported) Entered as Reported by: ANA ESCOTO on 03/28/211531 Last Action: Reviewed Ondansetron (Ondansetron Odt) 4 Mg Tab.rapdis, 4 MG PO Q8H PRN for NAUSEA/VOMITING-1ST LINE, (Reported) Entered as Reported by: ANA ESCOTO on 03/28/211531 Last Action: Reviewed Oxybutynin Chloride (Oxybutynin Chloride) 5 Mg Tablet, 5 MG PO TID, (Reported) Entered as Reported by: ANA ESCOTO on 03/28/211531 Last Action: Reviewed Sertraline HCl (Sertraline HCl) 50 Mg Tablet, 50 MG PO DAILY, (Reported) Entered as Reported by: ANA ESCOTO on 03/28/211531 Last Action: Continued Past Pspzfor-Ihdgap-Mtwwws Hx Patient Social History Alcohol Use?: No Have you traveled recently?: No Review of Systems-General Musculoskeletal: other Skin: other (Pain on tail bone where ulcer is at. Has had ulcer since [facility] hospitalization in November.) Other Patient minimally responsive to HPI questions. She only mentioned the pain on her tail bone. Physical Exam-General Problems Physical Exam Vital Signs Vital Signs - First Documented 03/28/21 03/28/21 10:02 13:58 Temp 35.7 Pulse 97 Resp 18 B/P (MAP) 101/70 (80) Pulse Ox 96 O2 Delivery Room Air O2 Flow Rate 2.00 Capillary Refill : Less Than 3 Seconds General Appearance: other (Pt appears chronically ill) HEENT: PERRL/EOMI; No scleral icterus (R), No scleral icterus (L) Neck: non-tender, full range of motion, supple, normal inspection Respiratory: normal breath sounds Cardiovascular: regular rate, rhythm, no murmur Back: other (Ulcer on back at level of sacrum and partially touching intergluteal cleft. Circular ulcer about 5cm in diameter and 3cm deep. No necrosis observed in ulcer) Neurologic/Psychiatric: other (Pt is fatigued and slightly slow to response.) Lymphatic: no adenopathy (Cervical) Data Review Labs Laboratory Tests 03/29/21 02:05: Urine Color YELLOW, Urine Clarity SL CLOUDY, Urine pH 7.0, Urine Specific [place] 1.010L, Urine Protein 1+H, Urine Glucose (UA) NEGATIVE, Urine Ketones NEGATIVE, Urine Nitrite POSITIVEH, Urine Bilirubin NEGATIVE, Urine Urobilinogen 0.2, Urine Leukocyte Esterase 3+H, Urine RBC (Auto) 2+H, Urine RBC 5-10H, Urine WBC 25-50H, Urine Squamous Epithelial Cells 0-2, Urine Crystals NONE, Urine Bacteria MODERATEH, Urine Casts NONE, Urine Mucus NEGATIVE, Urine Culture Indicated YES 03/29/21 05:35: White Blood Count 5.1, Red Blood Count 2.50L, Hemoglobin 7.4#L, Hematocrit 25L, Mean Corpuscular Volume 100H, Mean Corpuscular Hemoglobin 30, Mean Corpuscular Hemoglobin Concent 30L, Red Cell Distribution Width 15.7H, Platelet Count 302, Mean Platelet Volume 8.8L, Immature Granulocyte % (Auto) 0, Neutrophils (%) (Auto) 73, Lymphocytes (%) (Auto) 14, Monocytes (%) (Auto) 8, Eosinophils (%) (Auto) 5, Basophils (%) (Auto) 0, Neutrophils # (Auto) 3.7, Lymphocytes # (Auto) 0.7L, Monocytes # (Auto) 0.4, Eosinophils # (Auto) 0.2, Basophils # (Auto) 0.0, Immature Granulocyte # (Auto) 0.0, Sodium Level 141, Potassium Level 3.4L, Chloride Level 110H, Carbon Dioxide Level 21, Anion Gap 10, Blood Urea Nitrogen 15, Creatinine 0.61, Estimat Glomerular Filtration Rate 110, BUN/Creatinine Ratio 25, Glucose Level 75, Calcium Level 6.8L, Corrected Calcium 8.8, Phosphorus Level 4.2, Magnesium Level 1.2L, Total Bilirubin 0.2, Aspartate Amino Transf (AST/SGOT) 17, Alanine Aminotransferase (ALT/SGPT) 10, Alkaline Phosphatase 100, Total Protein 3.3L, Albumin 1.5#L Microbiology 03/28/21 Urine Culture - Preliminary, Resulted Gram Negative Bacillus 1 Assessment/Plan Final Diagnosis Sacral Ulcer Has not improved since patients hospitalization in November. Place wound vac. MILADIS MORSE DO 03/29/21 643: History of Present Illness History of Present Illness Time Seen by Provider: 16:25 History of Present Illness Surgery asked to consult regarding Sacral Decub. 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 Pt doesn't answer many questions. Denies pain. Allergies and Home Medications Allergies Coded Allergies: No Known Drug Allergies (Unverified , 03/28/21) Patient Home Medication List Home Medication List Reviewed: Yes Acetaminophen (Tylenol) 325 Mg Tablet, 650 MG PO Q4H PRN for PAIN-MILD (1-4), (Reported) Entered as Reported by: ANA ESCOTO on 03/28/211531 Last Action: Reviewed Albuterol Sulfate (Proair Hfa) 1 Puff Puff, 2 PUFF IH Q6H PRN for SHORTNESS OF BREATH, (Reported) Entered as Reported by: ANA ESCOTO on 03/28/211531 Last Action: Reviewed Apixaban (Eliquis) 5 Mg Tablet, 5 MG PO BID, (Reported) Entered as Reported by: ANA ESCOTO on 03/28/211531 Last Action: Reviewed Aspirin (Aspirin) 81 Mg Tab.chew, 81 MG PO DAILY, (Reported) Entered as Reported by: ANA ESCOTO on 03/28/211531 Last Action: Continued Atenolol (Atenolol) 25 Mg Tablet, 25 MG PO BID, (Reported) Entered as Reported by: ANA ESCOTO on 03/28/211531 Last Action: Reviewed Atorvastatin Calcium (Atorvastatin Calcium) 40 Mg Tablet, 40 MG PO HS, (Reported) Entered as Reported by: ANA ESCOTO on 03/28/211531 Last Action: Continued Balsam [place]/Mandan Oil (Venelex Ointment) 60 Gm Oint...g., 1 APPLIC TP UD, (Reported) Entered as Reported by: ANA ESCOTO on 03/28/211535 Last Action: Reviewed Collagenase (Santyl) 30 Gm Oint..gm., 1 APPLIC TP BID, (Reported) Entered as Reported by: ANA ESCOTO on 03/28/211535 Last Action: Reviewed Ergocalciferol (Vitamin D2) (Vitamin D2) 1,250 Mcg Capsule, 1,250 MCG PO MON, (Reported) Entered as Reported by: ANA ESCOTO on 03/28/211531 Last Action: Reviewed Ferrous Sulfate (Ferrous Sulfate) 325 Mg Tablet.dr, 325 MG PO DAILY, (Reported) Entered as Reported by: ANA ESCOTO on 03/28/211531 Last Action: Reviewed Hydrocodone/Acetaminophen (Hydrocodone-Acetamin 7.5-325) 1 Each Tablet, 1 EACH PO QID, (Reported) Entered as Reported by: ANA ESCOTO on 03/28/211531 Last Action: Reviewed Lactobacillus Acidophilus/Pect (Acidophilus-Pectin Capsule) 1 Each Capsule, 1 EACH PO BID, (Reported) Entered as Reported by: ANA ESCOTO on 03/28/211531 Last Action: Reviewed Loperamide HCl (Ultra A-D) 2 Mg Tablet, 2 MG PO DAILY, (Reported) Entered as Reported by: ANA ESCOTO on 03/28/211531 Last Action: Reviewed Melatonin (Melatonin) 5 Mg Tablet, 5 MG PO HS, (Reported) Entered as Reported by: ANA ESCOTO on 03/28/211531 Last Action: Reviewed Mesalamine (Pentasa) 250 Mg Capsule.er, 250 MG PO TID, (Reported) Entered as Reported by: ANA ESCOTO on 03/28/211531 Last Action: Reviewed Miconazole Nitrate (Antifungal Cream) 14 Gm Cream..g., 1 APPLIC TP Q8H PRN for YEAST, (Reported) Entered as Reported by: ANA ESCOTO on 03/28/211531 Last Action: Reviewed Multivitamin (Multivitamin) 1 Each Tablet, 1 EACH PO DAILY, (Reported) Entered as Reported by: ANA ESCOTO on 03/28/211531 Last Action: Reviewed Naloxone HCl (Narcan) 4 Mg [place], 1 SPRAYS NA UD PRN for OVERDOSE, (Reported) Entered as Reported by: ANA ESCOTO on 03/28/211531 Last Action: Reviewed Ondansetron (Ondansetron Odt) 4 Mg Tab.rapdis, 4 MG PO Q8H PRN for NAUSEA/VOMITING-1ST LINE, (Reported) Entered as Reported by: ANA ESCOTO on 03/28/211531 Last Action: Reviewed Oxybutynin Chloride (Oxybutynin Chloride) 5 Mg Tablet, 5 MG PO TID, (Reported) Entered as Reported by: ANA ESCOTO on 03/28/211531 Last Action: Reviewed Sertraline HCl (Sertraline HCl) 50 Mg Tablet, 50 MG PO DAILY, (Reported) Entered as Reported by: ANA ESCOTO on 03/28/211531 Last Action: Continued Past Vnrjyrx-Bgannk-Gnyqqu Hx Patient Social History Smoking Status: Unknown if Ever Smoked Respiratory History of Respiratory Disorde: Yes (Covid with respiratory failure) Cardiovascular History of Cardiac Disorders: No Neurological History of Neurological Disord: Yes Neurological Disorders: Neuropathy Musculoskeletal History of Musculoskeletal Dis: Yes Musculoskeletal Disorders: Chronic Back Pain Endocrine History of Endocrine Disorders: Yes Endocrine Disorders: Diabetes, Non-Insulin dep HEENT History of HEENT Disorders: No Psychosocial History of Psychiatric Problem: Yes Behavioral Health Disorders: Depression Family Medical History Significant Family History: Other Conditions/Hx (pt would not answer) Review of Systems-General Cardiovascular: No chest pain, No palpitations Gastrointestinal: No abdominal pain; loss of appetite; No nausea, No vomiting Musculoskeletal: muscle stiffness, muscle cramps, muscle weakness Skin: other (Pain on tail bone where ulcer is at. Has had ulcer since COVID hospitalization in November.) Psychiatric/Neurological: Depressed, Weakness Physical Exam-General Problems Physical Exam General Appearance: no apparent distress, other (Pt appears chronically ill) Eyes: Bilateral Eye PERRL, Bilateral Eye EOMI HEENT: pharynx normal; No scleral icterus (R), No scleral icterus (L) Neck: non-tender, supple Respiratory: normal breath sounds, no respiratory distress, no accessory muscle use Cardiovascular: regular rate, rhythm, no murmur Gastrointestinal: non tender, soft, no organomegaly Back: other (Ulcer on back at level of sacrum and partially touching intergluteal cleft. Circular ulcer about 5cm in diameter and 3cm deep. No necrosis observed in ulcer, maceration of surrounding skin and bone fragments visible) Neurologic/Psychiatric: other (Pt is fatigued and slightly slow to response.) Skin: normal color, warm/dry Lymphatic: no adenopathy (Cervical) Assessment/Plan Assessment/Plan Assessment/Plan Sacral Ulcer - Stage IV Has not improved since patients hospitalization in November. Place wound vac. Does not need debridement at this time. Supervisory-Addendum Brief Verification & Attestation Participated in pt care: history, MDM, physical Personally performed: exam, history, MDM, supervision of care Care discussed with: Medical Student Procedures: n/a Verification and Attestation of Medical Student E/M Service A medical student performed and documented this service. I then reviewed and verified all information documented by the medical student and made modifications to such information, when appropriate. I personally performed a physical exam, medical decision making and then discussed any differences between the notes and made revisions as necessary to create one note. Miladis Mosre , 03/29/21 , 18:13 YUDELKA MINER Mar 29, 2021 16:47 MILADIS MORSE DO Mar 29, 2021 18:12
[2021-03-29] MEDS ORDERED: VANCOMYCIN INJECTION 0.1 MG in NS (IVPB) 250 ML IV SCH (17:00)
--- NOTE | 2021-03-29 17:30 | Wound Care Assessment ---
Wound Care Assessment Date Seen by Provider: Mar 29, 2021 Time Seen by Provider: 17:25 Chief Complaint Stage 4 Sacral Pressure Ulcer STEVEN Diehl is a pleasant young lady that presented to my office earlier this week to establish for advanced wound care. Upon presentation, she was noted to be febrile, have a BP of 75/43 and HR 119. She had a PICC line, Fernandez catheter and a large sacral wound with exposed bone (numerous sites for infections). She was presumed to have sepsis. She is currently in the ICU with improved BP (systolics still in 90's). I have been consulted in regards to her sacral wound. Patient has h/o COVID-19 and this wound was present following a prolonged hospital stay and subsequent stay at nursing facility. The wound is stated to have first been noticed in January. Upon evaluation of ulcer today, she is noted to have exposed and necrotic bone. A sample is taken for bone culture and biopsy to conf irm underlying osteomyelitis. She is notedly anemic with electrolyte abnormalities and an albumin of 1.5. She is currently on Rocephin. She states that she has lost >100# since onset of COVID and has severe generalized weakness. Past Medical History: Admits Diabetes Type II, Admits Heart Disease (Recent episode of V Tach in past records) Review of Systems General: Fatigue Gastrointestinal: Nausea, Vomiting Genitourinary: Other (indwelling Fernandez cath) Other systems Indwelling PICC which has since been removed and replaced Exam Vital Signs Date Time Temp Pulse Resp B/P (MAP) Pulse Ox O2 Delivery O2 Flow Rate FiO2 03/29/21 16:32 36.5 03/29/21 16:00 112 24 101/54 100 Nasal Cannula 1.00 Capillary Refill : Less Than 3 Seconds General Appearance: moderate distress, other (somnalent and significant generalized weakness) Cardiovascular: tachycardia Respiratory: no respiratory distress, no accessory muscle use Extremities: other (generalized weakness) Skin: pallor Skin Problem Location: other (low back) Skin Character: erythema (in periwound (non-blanching)), other (Sacral ulcer: Stage 4 with exposed necrotic bone, Measurements 8.5x7x6.2 cm. Drainage is large and serosanguinous with foul odor, margins show epibole, granulation is large and pink, necrosis is small and slough, epithelialization is none.) Results Laboratory Tests 03/29/21 02:05: Urine Color YELLOW, Urine Clarity SL CLOUDY, Urine pH 7.0, Urine Specific Ralston 1.010L, Urine Protein 1+H, Urine Glucose (UA) NEGATIVE, Urine Ketones NEGATIVE, Urine Nitrite POSITIVEH, Urine Bilirubin NEGATIVE, Urine Urobilinogen 0.2, Urine Leukocyte Esterase 3+H, Urine RBC (Auto) 2+H, Urine RBC 5-10H, Urine WBC 25-50H, Urine Squamous Epithelial Cells 0-2, Urine Crystals NONE, Urine Bacteria MODERATEH, Urine Casts NONE, Urine Mucus NEGATIVE, Urine Culture Indicated YES 03/29/21 05:35: White Blood Count 5.1, Red Blood Count 2.50L, Hemoglobin 7.4#L, Hematocrit 25L, Mean Corpuscular Volume 100H, Mean Corpuscular Hemoglobin 30, Mean Corpuscular Hemoglobin Concent 30L, Red Cell Distribution Width 15.7H, Platelet Count 302, Mean Platelet Volume 8.8L, Immature Granulocyte % (Auto) 0, Neutrophils (%) (Auto) 73, Lymphocytes (%) (Auto) 14, Monocytes (%) (Auto) 8, Eosinophils (%) (Auto) 5, Basophils (%) (Auto) 0, Neutrophils # (Auto) 3.7, Lymphocytes # (Auto) 0.7L, Monocytes # (Auto) 0.4, Eosinophils # (Auto) 0.2, Basophils # (Auto) 0.0, Immature Granulocyte # (Auto) 0.0, Sodium Level 141, Potassium Level 3.4L, Chloride Level 110H, Carbon Dioxide Level 21, Anion Gap 10, Blood Urea Nitrogen 15, Creatinine 0.61, Estimat Glomerular Filtration Rate 110, BUN/Creatinine Ratio 25, Glucose Level 75, Calcium Level 6.8L, Corrected Calcium 8.8, Phosphorus Level 4.2, Magnesium Level 1.2L, Total Bilirubin 0.2, Aspartate Amino Transf (AST/SGOT) 17, Alanine Aminotransferase (ALT/SGPT) 10, Alkaline Phosphatase 100, Total Protein 3.3L, Albumin 1.5#L 03/29/21 16:30: Microbiology 03/28/21 Blood Culture - Preliminary, Resulted No growth 03/28/21 Urine Culture - Preliminary, Resulted Gram Negative Bacillus 1 Microbiology 03/28/21 Blood Culture - Preliminary, Resulted No growth 03/28/21 Urine Culture - Preliminary, Resulted Gram Negative Bacillus 1 03/28/21 Blood Culture - Preliminary, Resulted No growth Assessment/Plan/Dx A: 1. Stage 4 Pressure Ulcer 2. Exposed necrotic bone (presumed osteomyelitis) P: 1. Kerlix dampened with Vashe fluffed and loosely packed into wound. Change dressings twice daily. Cover with Bordered foam. 2. Notified primary of presence of necrotic bone and need for empiric treatment for osteomyelitis while awaiting cultures/biopsy. Defer antibiotic management to their capable hands 3. Wound culture 4. Bone culture 5. Bone biopsy ANKIT BERNABE MD Mar 29, 2021 17:30
[2021-03-29] MEDS ORDERED: PIPERACILLIN/TAZO 4.5 GM/NS 100 ML IV NR ×2 (18:00)
[2021-03-29] MEDS ORDERED: VANCOMYCIN 1,750 MG/NS 500 ML IVPB IV NR ×2 (18:30)
[2021-03-29] MEDS: HYPOCHLOROUS ACID/NaCl (VASHE) 250 ML IR SCH (23:27)
[2021-03-30] MEDS: LACTATED RINGERS 1,000 ML IV SCH ×4 (00:16→18:03)
[2021-03-30] MEDS: PIPERACILLIN/TAZOBACTAM (BULK) 4.5 GM in NS (IVPB) 100 ML IV SCH ×3 (00:16→18:02)
[2021-03-30] MEDS ORDERED: NS IV 1000 ML 1,000 ML IV SCH (00:45)
[2021-03-30] MEDS: NOREPINEPHRINE 8 MG/250 ML 250 ML IV SCH ×2 (01:16→14:42)
[2021-03-30] MEDS: ONDANSETRON 4 MG/2 ML (SDV) Z0FRAN IVP PRN (04:35)
[2021-03-30] MEDS: HYDROcodone/APAP 5 MG/325 MG (LORTAB) TAB PO PRN ×2 (04:36→22:20)
[2021-03-30] MEDS: POTASSIUM CL 10MEQ/50ML IVPB 50 ML IV SCH (07:30)
[2021-03-30] MEDS: MAGNESIUM 1 GM/100 ML IVPB 100 ML IV SCH (07:34)
[2021-03-30] MEDS: KCL 20 MEQ TAB (K-DUR) PO SCH (07:35)
--- NOTE | 2021-03-30 08:23 | Progress Note - Surgery ---
YUDELKA MINER 03/30/21 0823: Subjective Date Seen by a Provider: Mar 30, 2021 Time Seen by a Provider: 07:15 Subjective/Events-last exam Pt is being followed for her Stage IV sacral decubitus ulcer. Wound is currently packed and covered. Does not yet have a wound vac. She reports still having pain on her sacrum from the ulcer. Also had vomiting last night and feels tired. She is also relatively more alert to me than yesterday and responsive to questioning. Review of Systems General: No Chills, No Night Sweats; Fatigue HEENT: No Head Aches, No Visual Changes Pulmonary: Dyspnea; No Cough Cardiovascular: No: Chest Pain, Palpitations Gastrointestinal: Nausea, Vomiting; No: Abdominal Pain Genitourinary: No Dysuria, No Frequency Neurological: Weakness; No: Change in speech, Confusion Focused Exam Lactate Level 03/28/21 10:37: Lactic Acid Level 3.85*H 03/28/21 12:37: Lactic Acid Level 3.08*H 03/28/21 15:09: Lactic Acid Level 1.92 Objective Exam Vital Signs Date Time Temp Pulse Resp B/P (MAP) Pulse Ox O2 Delivery O2 Flow Rate FiO2 03/30/21 08:00 36.1 03/30/21 07:45 91 19 140/75 100 03/30/21 07:30 91 21 103/73 100 03/30/21 07:15 90 14 108/77 100 03/30/21 07:00 109/75 Nasal Cannula 1.00 03/30/21 07:00 86 03/30/21 06:45 93 16 111/65 100 03/30/21 06:30 114/69 03/30/21 06:15 96 19 115/70 100 Nasal Cannula 1.00 03/30/21 06:00 102 13 122/81 99 03/30/21 05:45 109 14 116/72 100 03/30/21 05:30 112 15 104/73 100 03/30/21 05:15 92 33 105/63 99 03/30/21 05:00 98 22 104/46 100 03/30/21 05:00 98 22 104/46 100 03/30/21 05:00 100 22 100 03/30/21 04:55 107 20 100 03/30/21 04:45 101 12 90/62 100 03/30/21 04:45 101 12 90/62 100 03/30/21 04:40 99 10 100 03/30/21 04:33 89/52 03/30/21 04:30 79 22 76/39 100 03/30/21 04:30 79 22 76/39 100 03/30/21 04:25 78 80 100 03/30/21 04:19 78 10 115/104 99 03/30/21 04:19 78 10 115/104 99 03/30/21 04:15 74/47 03/30/21 04:10 77 26 57 03/30/21 04:00 78/51 03/30/21 03:45 92 10 71/39 03/30/21 03:45 92 10 71/39 03/30/21 03:40 92 19 96 03/30/21 03:30 108 22 124/72 93 03/30/21 03:30 108 22 124/72 93 03/30/21 03:15 107 21 106/60 98 03/30/21 03:15 107 21 106/60 98 03/30/21 03:10 109 21 98 03/30/21 03:00 106 23 92/55 99 03/30/21 03:00 106 23 92/55 99 03/30/21 02:45 110 21 87/50 97 03/30/21 02:45 110 21 87/50 97 03/30/21 02:40 105 22 96 03/30/21 02:30 113 23 114/63 98 03/30/21 02:30 113 23 114/63 98 03/30/21 02:25 117 25 97 03/30/21 02:15 103/61 03/30/21 02:00 115/56 03/30/21 01:45 110/55 03/30/21 01:30 105/62 03/30/21 01:16 100 19 81/47 96 03/30/21 01:16 101 85/43 03/30/21 01:00 96 28 85/43 100 03/30/21 01:00 103 03/30/21 00:00 103 20 78/46 97 Nasal Cannula 1.00 03/29/21 23:00 115 20 81/50 100 Nasal Cannula 1.00 03/29/21 22:00 107 19 76/50 100 Nasal Cannula 1.00 03/29/21 21:00 92 21 88/49 100 Nasal Cannula 1.00 03/29/21 20:00 Nasal Cannula 1.00 03/29/21 20:00 111 9 88/49 100 Nasal Cannula 1.00 03/29/21 19:52 37.6 03/29/21 19:00 118 16 88/50 100 Nasal Cannula 1.00 03/29/21 19:00 124 03/29/21 18:20 37.4 03/29/21 18:00 120 94/59 100 Nasal Cannula 1.00 03/29/21 17:00 105 13 100/47 100 Nasal Cannula 1.00 03/29/21 16:32 36.5 03/29/21 16:00 112 24 101/54 100 Nasal Cannula 1.00 03/29/21 15:00 122 23 102/55 94 Nasal Cannula 1.00 03/29/21 14:45 129 17 105/58 95 Nasal Cannula 1.00 03/29/21 14:30 144 18 108/47 94 Nasal Cannula 1.00 03/29/21 14:15 107 20 98/44 88 Nasal Cannula 1.00 03/29/21 14:00 105 20 93/50 99 Nasal Cannula 1.00 03/29/21 13:45 107 13 102/62 95 Nasal Cannula 1.00 03/29/21 13:30 111 15 104/58 98 Nasal Cannula 1.00 03/29/21 13:15 100 7 85/46 95 Nasal Cannula 1.00 03/29/21 13:00 99 03/29/21 13:00 116 7 98 Nasal Cannula 1.00 03/29/21 12:45 101 15 96 Nasal Cannula 1.00 03/29/21 12:30 101 18 95 Nasal Cannula 1.00 03/29/21 12:15 97 11 97 Nasal Cannula 1.00 03/29/21 12:00 105 15 121/52 95 Nasal Cannula 1.00 03/29/21 11:53 36.8 03/29/21 11:45 102 0 105/49 96 Nasal Cannula 1.00 03/29/21 11:30 101 10 87/59 97 Nasal Cannula 1.00 03/29/21 11:15 91/56 03/29/21 11:00 125 15 109/47 98 Nasal Cannula 1.00 03/29/21 10:45 122 23 86/50 97 Nasal Cannula 1.00 03/29/21 10:30 112 8 85/40 96 Nasal Cannula 1.00 03/29/21 10:15 116 12 98/64 97 Nasal Cannula 1.00 03/29/21 10:00 105 15 99/50 98 Nasal Cannula 1.00 03/29/21 09:45 75 11 91/49 100 Nasal Cannula 1.00 03/29/21 09:30 95 19 94/46 100 Nasal Cannula 1.00 03/29/21 09:15 94 20 94/46 100 Nasal Cannula 1.00 03/29/21 09:00 86 14 89/46 100 Nasal Cannula 1.00 03/29/21 08:45 98 14 96/47 100 Nasal Cannula 1.00 03/29/21 08:30 106 17 93/54 100 Nasal Cannula 1.00 03/29/21 08:23 36.6 I & O 03/30/21 07:00 Intake Total 2620 ml Output Total 2650 ml Balance -30 ml Capillary Refill : Less Than 3 Seconds General Appearance: No Apparent Distress, Chronically ill HEENT: PERRL/EOMI Neck: Full Range of Motion, Normal Inspection, Non Tender, Supple Respiratory: Chest Non Tender, No Accessory Muscle Use, No Respiratory Distress Cardiovascular: Regular Rate, Rhythm, No Murmur, Normal Peripheral Pulses Peripheral Pulses: 2+ Radial Pulses (R), 2+ Radial Pulses (L) Gastrointestinal: non tender, soft, no organomegaly Extremity: Normal Capillary Refill, Normal Inspection Neurologic/Psychiatric: Alert, Oriented x3 Skin: Normal Color, Warm/Dry Results Lab Laboratory Tests 03/29/21 16:30: Microbiology 03/29/21 Urine Culture - Preliminary, Resulted Probable Pseudomonas Gram Negative [place] 03/29/21 MRSA Screen - Final, Complete MRSA not isolated 03/28/21 Blood Culture - Preliminary, Resulted No growth Assessment/Plan Assessment/Plan Assessment/Plan Sacral Ulcer - Stage IV Has not improved since patients hospitalization in November. Ulcer currently packed and covered. No wound vac yet. Place wound vac. Does not need debridement at this time. ANDRES MORSE DO 03/30/21 0949: Subjective Time Seen by a Provider: 09:31 Subjective/Events-last exam Pt seen and examined, lying in bed comfortable. Needed pressor support last night but it is coming down. Had some pain last night Review of Systems General: No Chills, No Night Sweats; Fatigue Pulmonary: Dyspnea; No Cough Cardiovascular: No: Chest Pain, Palpitations Gastrointestinal: Nausea, Vomiting; No: Abdominal Pain Objective Exam General Appearance: No Apparent Distress, Chronically ill Respiratory: Lungs Clear (faint, poor inspiratory effort), No Accessory Muscle Use, No Respiratory Distress Cardiovascular: Regular Rate, Rhythm, No Murmur Skin: Other (sacral decub packed) Assessment/Plan Assessment/Plan Assessment/Plan Sacral Ulcer - Stage IV Has not improved since patients hospitalization in November. Ulcer currently packed and covered. Hopefully wound vac today; orders placed. Will await culture results if pt has Osteomyelitis she won't be able to use VAC. No debridement at this time. Supervisory-Addendum Brief Verification & Attestation Participated in pt care: history, MDM, physical Personally performed: exam, history, MDM, supervision of care Care discussed with: Medical Student Procedures: n/a Verification and Attestation of Medical Student E/M Service A medical student performed and documented this service. I then reviewed and verified all information documented by the medical student and made modifications to such information, when appropriate. I personally performed a physical exam, medical decision making and then discussed any differences between the notes and made revisions as necessary to create one note. Andres Morse , 03/30/21 , 09:49 YUDELKA MINER Mar 30, 2021 08:23 ANDRES MORSE DO Mar 30, 2021 09:49
[2021-03-30 09:04] LABS: BASOPHILS % (AUTO) 0 % (0-10); EOSINOPHILS # (AUTO) 0.1 10^3/uL (0.0-0.3); EOSINOPHILS % (AUTO) 1 % (0-10); HEMATOCRIT 32 % (35-52); HEMOGLOBIN 9.7 g/dL (11.5-16.0); LYMPHOCYTES # (AUTO) 1.3 10^3/uL (1.0-4.0); LYMPHOCYTES % (AUTO) 12 % (12-44); MEAN CORPUSCULAR HEMOGLOBIN 30 pg (25-34); MEAN CORPUSCULAR HGB CONC 30 g/dL (32-36); MEAN CORPUSCULAR VOLUME 100 fL (80-99); MEAN PLATELET VOLUME 8.6 fL (9.0-12.2); MONOCYTES # (AUTO) 0.8 10^3/uL (0.0-1.0); MONOCYTES % (AUTO) 8 % (0-12); NEUTROPHILS # (AUTO) 8.4 10^3/uL (1.8-7.8); NEUTROPHILS % (AUTO) 78 % (42-75); PLATELET COUNT 403 10^3/uL (130-400); WHITE BLOOD COUNT 10.7 10^3/uL (4.3-11.0)
[2021-03-30 09:26] LABS: ALBUMIN 1.7 GM/DL (3.2-4.5); BILIRUBIN,TOTAL 0.3 MG/DL (0.1-1.0); CALCIUM 7.1 MG/DL (8.5-10.1); CREATININE SERUM 0.66 MG/DL (0.60-1.30); MAGNESIUM 1.8 MG/DL (1.6-2.4)
[2021-03-30 09:33] LABS: POTASSIUM 4.4 MMOL/L (3.6-5.0)
[2021-03-30] MEDS: HYPOCHLOROUS ACID/NaCl (VASHE) 250 ML IR SCH ×2 (09:38→22:14)
[2021-03-30] MEDS: SERTRALINE 50 MG (ZOLOFT) TABLET PO SCH (09:38)
[2021-03-30] MEDS: ASPIRIN 81 MG CHEW (CHILDREN'S ASA) PO SCH (09:38)
[2021-03-30] MEDS: VANCOMYCIN 1250 MG/NS 250 ML IVPB IV SCH ×4 (09:38→18:02)
--- NOTE | 2021-03-30 11:22 | Tele-ICU Progress Note ---
Subjective Date Seen by a Provider: Mar 30, 2021 Time Seen by a Provider: 11:22 Subjective/Events-last exam She is a younger female who was recently hospitalized in November for a prolonged GERD. Here for Covid pneumonia and she was intubated and on prolonged time on mechanical ventilation. Subsequently she survived the episode and subsequently transferred to [facility] and she is very much deconditioned. She also develop ed a sacral decubitus. She is now admitted with nausea vomiting diarrhea which caused her to have a hypotension and septic shock suspected. Currently on a Levophed at a low dose. She is supposed to get a PICC line today. She is afebrile. Her blood pressure is improving. Video visit made and discussed with the STRUCTURES ASSEMBLER. Sepsis Event Evaluation Height, Weight, BMI Height: '" Weight: lbs. oz. kg; 32.94 BMI Method: Focused Exam Lactate Level 03/28/21 10:37: Lactic Acid Level 3.85*H 03/28/21 12:37: Lactic Acid Level 3.08*H 03/28/21 15:09: Lactic Acid Level 1.92 Exam Exam Patient acknowledged, consented, and participated in this virtual visit which was conducted using real time audio/video Vital Signs Date Time Temp Pulse Resp B/P (MAP) Pulse Ox O2 Delivery O2 Flow Rate FiO2 03/30/21 10:51 96 Room Air 03/30/21 10:30 90 20 98 03/30/21 10:15 89 18 95 03/30/21 10:00 103 26 100 Nasal Cannula 1.00 03/30/21 09:45 95 21 101/70 86 03/30/21 09:30 126/78 03/30/21 09:15 88 20 133/76 98 03/30/21 09:00 92 14 125/80 100 Nasal Cannula 1.00 03/30/21 08:45 94 17 108/68 100 03/30/21 08:30 89 17 115/81 100 03/30/21 08:15 101 11 113/78 100 03/30/21 08:00 36.1 03/30/21 08:00 110 11 113/61 100 Nasal Cannula 1.00 03/30/21 07:45 91 19 140/75 100 03/30/21 07:30 91 21 103/73 100 03/30/21 07:15 90 14 108/77 100 03/30/21 07:00 109/75 Nasal Cannula 1.00 03/30/21 07:00 86 03/30/21 06:45 93 16 111/65 100 03/30/21 06:30 114/69 03/30/21 06:15 96 19 115/70 100 Nasal Cannula 1.00 03/30/21 06:00 102 13 122/81 99 03/30/21 05:45 109 14 116/72 100 03/30/21 05:30 112 15 104/73 100 03/30/21 05:15 92 33 105/63 99 03/30/21 05:00 98 22 104/46 100 03/30/21 05:00 98 22 104/46 100 03/30/21 05:00 100 22 100 03/30/21 04:55 107 20 100 03/30/21 04:45 101 12 90/62 100 03/30/21 04:45 101 12 90/62 100 03/30/21 04:40 99 10 100 03/30/21 04:33 89/52 03/30/21 04:30 79 22 76/39 100 03/30/21 04:30 79 22 76/39 100 03/30/21 04:25 78 80 100 03/30/21 04:19 78 10 115/104 99 03/30/21 04:19 78 10 115/104 99 03/30/21 04:15 74/47 03/30/21 04:10 77 26 57 03/30/21 04:00 78/51 03/30/21 03:45 92 10 71/39 03/30/21 03:45 92 10 71/39 03/30/21 03:40 92 19 96 03/30/21 03:30 108 22 124/72 93 03/30/21 03:30 108 22 124/72 93 03/30/21 03:15 107 21 106/60 98 03/30/21 03:15 107 21 106/60 98 03/30/21 03:10 109 21 98 03/30/21 03:00 106 23 92/55 99 03/30/21 03:00 106 23 92/55 99 03/30/21 02:45 110 21 87/50 97 03/30/21 02:45 110 21 87/50 97 03/30/21 02:40 105 22 96 03/30/21 02:30 113 23 114/63 98 03/30/21 02:30 113 23 114/63 98 03/30/21 02:25 117 25 97 03/30/21 02:15 103/61 03/30/21 02:00 115/56 03/30/21 01:45 110/55 03/30/21 01:30 105/62 03/30/21 01:16 100 19 81/47 96 03/30/21 01:16 101 85/43 03/30/21 01:00 96 28 85/43 100 03/30/21 01:00 103 03/30/21 00:00 103 20 78/46 97 Nasal Cannula 1.00 03/29/21 23:00 115 20 81/50 100 Nasal Cannula 1.00 03/29/21 22:00 107 19 76/50 100 Nasal Cannula 1.00 03/29/21 21:00 92 21 88/49 100 Nasal Cannula 1.00 03/29/21 20:00 Nasal Cannula 1.00 03/29/21 20:00 111 9 88/49 100 Nasal Cannula 1.00 03/29/21 19:52 37.6 03/29/21 19:00 118 16 88/50 100 Nasal Cannula 1.00 03/29/21 19:00 124 03/29/21 18:20 37.4 03/29/21 18:00 120 94/59 100 Nasal Cannula 1.00 03/29/21 17:00 105 13 100/47 100 Nasal Cannula 1.00 03/29/21 16:32 36.5 03/29/21 16:00 112 24 101/54 100 Nasal Cannula 1.00 03/29/21 15:00 122 23 102/55 94 Nasal Cannula 1.00 03/29/21 14:45 129 17 105/58 95 Nasal Cannula 1.00 03/29/21 14:30 144 18 108/47 94 Nasal Cannula 1.00 03/29/21 14:15 107 20 98/44 88 Nasal Cannula 1.00 03/29/21 14:00 105 20 93/50 99 Nasal Cannula 1.00 03/29/21 13:45 107 13 102/62 95 Nasal Cannula 1.00 03/29/21 13:30 111 15 104/58 98 Nasal Cannula 1.00 03/29/21 13:15 100 7 85/46 95 Nasal Cannula 1.00 03/29/21 13:00 99 03/29/21 13:00 116 7 98 Nasal Cannula 1.00 03/29/21 12:45 101 15 96 Nasal Cannula 1.00 03/29/21 12:30 101 18 95 Nasal Cannula 1.00 03/29/21 12:15 97 11 97 Nasal Cannula 1.00 03/29/21 12:00 105 15 121/52 95 Nasal Cannula 1.00 03/29/21 11:53 36.8 03/29/21 11:45 102 0 105/49 96 Nasal Cannula 1.00 03/29/21 11:30 101 10 87/59 97 Nasal Cannula 1.00 I & O 03/30/21 07:00 Intake Total 2620 ml Output Total 2650 ml Balance -30 ml Height & Weight Height: '" Weight: lbs. oz. kg; 32.94 BMI Method: General Appearance: No Apparent Distress, Chronically ill HEENT: PERRL/EOMI Neck: Full Range of Motion, Normal Inspection, Non Tender, Supple Respiratory: Lungs Clear (faint, poor inspiratory effort), No Accessory Muscle Use, No Respiratory Distress Cardiovascular: Regular Rate, Rhythm, No Murmur Capillary Refill: Less Than 3 Seconds Peripheral Pulses: 2+ Radial Pulses (R), 2+ Radial Pulses (L) Gastrointestinal: non tender, soft, no organomegaly Extremity: Normal Capillary Refill, Normal Inspection Neurologic/Psychiatric: Alert, Oriented x3 Skin: Other (sacral decub packed) Other comments PE PER ATTENDING PHYSICIAN Results Lab Laboratory Tests 03/29/21 05:35 03/30/21 08:50 Assessment/Plan Assessment/Plan 1. Possible septic shock and is being revived with fluids and Levophed. Because of hypovolemia could be due to nausea vomiting diarrhea in addition to sepsis. 2. Suspected UTI 3. Sacral decubitus ulcer with possible infection. 4. Anemia probably acute on chronic compounded by IV hydration. 5. Severe deconditioning. Recommendations 1. Continue IV antibiotics per primary care physician 2. Wean Levophed. 3. Sacral decubitus ulcer care per surgery currently on a wound VAC. 4. Continue monitor electrolytes, BUN/creatinine. 5. Nutritional support. 6. DVT prophylaxis and ulcer prophylaxis. Currently patient on Eliquis. Critical Care: Critically Ill Patient Time spent with patient (mins): 25 SAPPHIRE GARNICA MD Mar 30, 2021 11:22
[2021-03-30] MEDS: ALBUMIN 25% 25 GM/100 ML 100 ML IV SCH ×3 (12:33→22:15)
--- NOTE | 2021-03-30 15:27 | Physician Query Clarification ---
Physician Query-General Query to Physician: The medical record reflects the following clinical scenario: The patient, in the setting of History/Risk factors, Chronic thornton since November, weak and debilitated state, 100 maritza 1 regular H acute Clinical Findings "snf thornton in place" per HPI, Urine culture from thornton "Probable pseudomonas" Urine culture from clean catch " Enterobacter Cloacae, Pseudomonas aeruginosa" Treatment IV ABX, Thornton replaced in ER Question: Can you specify if the (infection) is due to/associated with (device or procedure)? 1. Yes - Urinary tract infection is due to/associated with indwelling Thornton catheter 2. No - Urinary tract infection is not due to/associated with indwelling Thornton catheter 3. Other, with explanation of the clinical findings 4. Clinically undetermined, no explanation for the clinical findings Please clarify and document your clinical opinion in the Progress Notes and Discharge Summary including the definitive and/or presumptive diagnosis, (suspected or probable), related to the above clinical findings. Please include clinical findings supporting your diagnosis. In responding to this query, please exercise your independent professional judgment. The purpose of this communication is to more accurately reflect the complexity of your patients condition. The fact that a question is asked does not imply that any particular answer is desired or expected. Please remember a lack of response to the above will prompt a phone page by CDI/ coding staff Thank you for timely response to this clarification. Veronica Taylor MSN, RN Clinical Costume Designer [phone] [email or web address] PHYSICIAN RESPONSE: Based on the clinical findings in the record, please respond to the query above on this document as an addendum. Physician Response: Physician Response 4 If you have questions please contact: Flat Drier: Ext: Thank you for your time and cooperation. Clinical Costume Designer/Flat Drier This is a permanent part of the medical record VERONICA TAYLOR Mar 30, 2021 15:27 ANA GE MD Apr 11, 2021 20:30
--- NOTE | 2021-03-30 15:41 | Physician Query Clarification ---
Physician Query-General Query to Physician: The medical record reflects the following clinical evidence: Clinical Indicators: Documentation on Nursing admission assessment of Stage 4 pressure ulcer to the sacral area AND stage 2 pressure ulcer to the abdomen Risk Factor(s): 100 pound weight loss, prolonged hospitalization that requiring pronning for respiratory failure, other pressure ulcers Treatment: Wound and skin physician consulted, Nutritional monitoring, frequent skin assessments with q 2 hour position changes 1. Pressure ulcer of unspecified site, stage 2, to abdomen, present on admission 2. Other explanation of clinical findings 3. Unable to determine (no explanation for clinical findings) Please clarify and document your clinical opinion in the progress notes and discharge summary including the definitive and/or presumptive diagnosis, (huang spected or probable), related to the above clinical findings. Please include clinical findings supporting your diagnosis. Veronica Quinn MSN, RN Clinical Manufacturing Weaver [phone] [email or web address] PHYSICIAN RESPONSE: Based on the clinical findings in the record, please respond to the query above on this document as an addendum. Physician Response: Physician Response Yes pressure ulcers were present on admission If you have questions please contact: Account Support Rep: Ext: Thank you for your time and cooperation. Clinical Manufacturing Weaver/Account Support Rep This is a permanent part of the medical record VERONICA QUINN Mar 30, 2021 15:41 ANA GE MD Apr 11, 2021 20:30
--- NOTE | 2021-03-30 15:50 | Physician Query Clarification ---
Physician Query-General Query to Physician: The medical record reflects the following clinical evidence: Clinical Indicators: "Lost over 100# since her covid infection" Covid infection 3-4 months ago, severe debility, Severe weakness and stage 4 non healing pressure ulcer, poor intake since admission Risk Factor(s): Prolonged hospitalization for Covid in November, prolonged rehab stay following hospitalization Treatment: Final Dressing Cutter consult, Adding ensure TID, nutrition monitoring 1. Unspecified severe protein-calorie malnutrition, present on admission 2. Other explanation of clinical findings 3. Unable to determine (no explanation for clinical findings) Please clarify and document your clinical opinion in the progress notes and discharge summary including the definitive and/or presumptive diagnosis, (suspected or probable), related to the above clinical findings. Please include clinical findings supporting your diagnosis. Veronica Quinn MSN, RN Clinical Fast Food Supervisor [phone] [email or web address] PHYSICIAN RESPONSE: Based on the clinical findings in the record, please respond to the query above on this document as an addendum. Physician Response: Physician Response PEM present on admission If you have questions please contact: Conditioning Yard Supervisor: Ext: Thank you for your time and cooperation. Clinical Fast Food Supervisor/Conditioning Yard Supervisor This is a permanent part of the medical record VERONICA QUINN Mar 30, 2021 15:50 ANA GE MD Apr 11, 2021 20:29
--- NOTE | 2021-03-30 16:23 | Progress Note ---
Subjective Subjective/Events-last exam Patient states that she feels ok. Pain is well controlled. Review of Systems General: Malaise Pulmonary: No Dyspnea, No Cough Cardiovascular: No: Chest Pain, Palpitations, Edema Gastrointestinal: No: Nausea, Vomiting Genitourinary: Other (chronic catheter draining clear urine) Neurological: Weakness, Incoordination Focused Exam Lactate Level 03/28/21 10:37: Lactic Acid Level 3.85*H 03/28/21 12:37: Lactic Acid Level 3.08*H 03/28/21 15:09: Lactic Acid Level 1.92 Objective Exam Last Set of Vital Signs Vital Signs Date Time Temp Pulse Resp B/P (MAP) Pulse Ox O2 Delivery O2 Flow Rate FiO2 03/30/21 16:00 103 90 92/55 100 Nasal Cannula 1.00 03/30/21 16:00 36.4 Capillary Refill : Less Than 3 Seconds I&O Intake and Output 03/29/21 23:59 Intake Total 4470 ml Output Total 2400 ml Balance 2070 ml Intake Oral 970 ml IV Total 3500 ml Output Urine Total 1800 ml Emesis 600 ml General: Alert, Oriented X3, No Acute Distress Lungs: Clear to Auscultation, Normal Air Movement Heart: Regular Rate, No Murmurs Abdomen: Normal Bowel Sounds, Soft, No Tenderness, No Masses Extremities: No Edema Skin: Other (stage IV pressure wound on sacrum) Neuro: Normal Speech Results/Procedures Lab Laboratory Tests 03/29/21 16:30: 03/30/21 08:50: White Blood Count 10.7, Red Blood Count 3.22L, Hemoglobin 9.7#L, Hematocrit 32L, Mean Corpuscular Volume 100H, Mean Corpuscular Hemoglobin 30, Mean Corpuscular Hemoglobin Concent 30L, Red Cell Distribution Width 15.9H, Platelet Count 403H, Mean Platelet Volume 8.6L, Immature Granulocyte % (Auto) 1, Neutrophils (%) (Auto) 78H, Lymphocytes (%) (Auto) 12, Monocytes (%) (Auto) 8, Eosinophils (%) (Auto) 1, Basophils (%) (Auto) 0, Neutrophils # (Auto) 8.4H, Lymphocytes # (Auto) 1.3, Monocytes # (Auto) 0.8, Eosinophils # (Auto) 0.1, Basophils # (Auto) 0.0, Immature Granulocyte # (Auto) 0.1, Sodium Level 143, Potassium Level 4.4, Chloride Level 114H, Carbon Dioxide Level 16L, Anion Gap 13, Blood Urea Nitrogen 9, Creatinine 0.66, Estimat Glomerular Filtration Rate 100, BUN/Creatinine Ratio 14, Glucose Level 103, Calcium Level 7.1L, Corrected Calcium 8.9, Phosphorus Level 4.0, Magnesium Level 1.8, Total Bilirubin 0.3, Aspartate Amino Transf (AST/SGOT) 27, Alanine Aminotransferase (ALT/SGPT) 18, Alkaline Phosphatase 114, Total Protein 4.0L, Albumin 1.7L Microbiology 03/29/21 Gram Stain - Final, Resulted 03/29/21 Surgical Culture - Preliminary, Resulted Gram Negative Dewey 03/29/21 Urine Culture - Preliminary, Resulted Probable Pseudomonas Gram Negative Dewey 03/29/21 MRSA Screen - Final, Complete MRSA not isolated 03/28/21 Blood Culture - Preliminary, Resulted No growth Assessment/Plan Assessment/Plan (1) Severe sepsis Status: Acute Assessment & Plan: - Sepsis IVF protocol, hypotension responds well to fliuds, started on Rocephin for UTI, added broad spectrum for concerns for osteomyelisis in Sacral wound, PICC was pulled and cath tip cultured 03/30: Picc replaced in opposite arm, started on levophed ON by eICU (2) UTI (urinary tract infection) Assessment & Plan: - Fernandez catheter replaced upon admission, C/s pending Qualifiers: Qualified Codes: T83.511D - Infection and inflammatory reaction due to indwelling urethral catheter, subsequent encounter; N39.0 - Urinary tract infection, site not specified (3) Sacral decubitus ulcer, stage IV Status: Chronic Assessment & Plan: - wound Care and surgery consulted, antibiotics broadened, bone bx performed by wound care 03/30: Wound vac to be placed today (4) Post covid-19 condition, unspecified Status: Chronic ANA GE MD Mar 30, 2021 16:23
[2021-03-31] MEDS: NOREPINEPHRINE 8 MG/250 ML 250 ML IV SCH ×2 (04:21→14:16)
[2021-03-31] MEDS: LACTATED RINGERS 1,000 ML IV SCH ×4 (04:22→23:49)
[2021-03-31] MEDS: PIPERACILLIN/TAZOBACTAM (BULK) 4.5 GM in NS (IVPB) 100 ML IV SCH ×2 (04:23→09:39)
[2021-03-31] MEDS ORDERED: TROUGH ORDER-PHARMACY XX NR ×2 (06:00→19:00)
[2021-03-31] MEDS: ALBUMIN 25% 25 GM/100 ML 100 ML IV SCH ×3 (07:54→21:31)
[2021-03-31 08:05] LABS: BASOPHILS % (AUTO) 1 % (0-10); EOSINOPHILS # (AUTO) 0.4 10^3/uL (0.0-0.3); EOSINOPHILS % (AUTO) 10 % (0-10); HEMATOCRIT 22 % (35-52); LYMPHOCYTES # (AUTO) 1.2 10^3/uL (1.0-4.0); LYMPHOCYTES % (AUTO) 29 % (12-44); MEAN CORPUSCULAR HEMOGLOBIN 30 pg (25-34); MEAN CORPUSCULAR HGB CONC 30 g/dL (32-36); MEAN CORPUSCULAR VOLUME 101 fL (80-99); MEAN PLATELET VOLUME 8.6 fL (9.0-12.2); MONOCYTES # (AUTO) 0.5 10^3/uL (0.0-1.0); MONOCYTES % (AUTO) 11 % (0-12); NEUTROPHILS % (AUTO) 49 % (42-75); PLATELET COUNT 291 10^3/uL (130-400); WHITE BLOOD COUNT 4.1 10^3/uL (4.3-11.0)
[2021-03-31 08:08] LABS: HEMOGLOBIN 6.5 g/dL (11.5-16.0)
[2021-03-31 08:33] LABS: ALBUMIN 2.5 GM/DL (3.2-4.5); BILIRUBIN,TOTAL 0.4 MG/DL (0.1-1.0); CALCIUM 7.5 MG/DL (8.5-10.1); CREATININE SERUM 0.66 MG/DL (0.60-1.30); MAGNESIUM 1.8 MG/DL (1.6-2.4); PHOSPHORUS 3.7 MG/DL (2.3-4.7); POTASSIUM 3.1 MMOL/L (3.6-5.0)
[2021-03-31 08:35] LABS: VANCOMYCIN,TROUGH 26.5 UG/ML (10.0-20.0)
[2021-03-31] MEDS: VANCOMYCIN 1250 MG/NS 250 ML IVPB IV SCH ×2 (08:45)
[2021-03-31] MEDS: HYPOCHLOROUS ACID/NaCl (VASHE) 250 ML IR SCH ×2 (08:45→20:48)
--- NOTE | 2021-03-31 09:33 | Progress Note - Hospitalist ---
Subjective HPI/CC On Admission Date Seen by Provider: Mar 31, 2021 Time Seen by Provider: 08:30 Subjective/Events-last exam Patient notes that the pain is about the same as it has been. She has a very flat affect but does not feel like she is depressed. She is looking forward to going home sometime. She does note that she is beginning to have diarrhea from the antibiotics. Review of Systems Gastrointestinal: Diarrhea Neurological: Weakness Focused Exam Lactate Level 03/28/21 10:37: Lactic Acid Level 3.85*H 03/28/21 12:37: Lactic Acid Level 3.08*H 03/28/21 15:09: Lactic Acid Level 1.92 Objective Exam Vital Signs Vital Signs Date Time Temp Pulse Resp B/P (MAP) Pulse Ox O2 Delivery O2 Flow Rate FiO2 03/31/21 09:00 112 15 94/65 99 Nasal Cannula 1.00 03/31/21 07:58 36.0 Capillary Refill : Less Than 3 Seconds General Appearance: Chronically ill Neck: Limited Range of Motion Respiratory: Chest Non Tender, Lungs Clear, Normal Breath Sounds, No Accessory Muscle Use, No Respiratory Distress Cardiovascular: Regular Rate, Rhythm, No Gallop, No Murmur Gastrointestinal: Normal Bowel Sounds, Soft Rectal: Deferred Extremity: Pedal Edema, Other (Foot drop left foot) Neurologic/Psychiatric: Alert, Oriented x3, Depressed Affect Skin: Pallor Results/Procedures Lab Laboratory Tests 03/31/21 07:50 Patient resulted labs reviewed. Assessment/Plan Assessment and Plan Assess & Plan/Chief Complaint Severe sepsis resolving on vancomycin and Zosyn Diarrhea we will add lactobacillus, monitor for C. difficile possibilities Sacral decubitus ulcer followed by wound care Hypokalemia will replace Anemia this morning with a hemoglobin of 6.6 will recheck for validity transfuse as necessary Post Covid with deconditioning will begin PT OT Foot drop Critical Care Critically Ill Patient LAURIE NORTON MD Mar 31, 2021 09:32
[2021-03-31] MEDS: SERTRALINE 50 MG (ZOLOFT) TABLET PO SCH (09:39)
[2021-03-31] MEDS: ASPIRIN 81 MG CHEW (CHILDREN'S ASA) PO SCH (09:39)
--- NOTE | 2021-03-31 10:48 | Physical Therapy Evaluation ---
PT Evaluation-General Medical Diagnosis Admission Date Mar 28, 2021 at 12:52 Medical Diagnosis: sepsis Onset Date: Mar 28, 2021 Therapy Diagnosis Therapy Diagnosis: debility Precautions Precautions/Isolations: Standard Precautions Referral Physician: Dr. Frederick Reason for Referral: Evaluation/Treatment Medical History Additional Medical History Post covid syndrome, chronic indwelling catheter, sacral wound, NIDDM Current History Pt. presents with N/V, complicated course of post covid since October. Reviewed History: Yes Social History Pt. most recent at local correction from hospital stays at [facility]. Prior Prior Level of Function SCALE: Activities may be completed with or without assistive devices. 8-Gzdcalsyld-wpwnfaw completes the activity by him/herself with no assistance from a helper. 5-Set-up or Clean-up Assistance-helper sets up or cleans up; patient completes activity. Tyrone assists only prior to or following the activity. 4-Supervision or Touching Assistance-helper provides verbal cues and/or touching/steadying and/or contact guard assistance as patient completes activity. Assistance may be provided throughout the activity or intermittently. 3-Partial/Moderate Assistance-helper does LESS THAN HALF the effort. Tyrone lifts, holds or supports trunk or limbs, but provides less than half the effort. 2-Substantial/Maximal Assistance-helper does MORE THAN HALF the effort. Tyrone lifts or holds trunk or limbs and provides more than half the effort. 8-Byjtcqoxm-pmxmap does ALL the effort. Patient does none of the effort to complete the activity. Or, the assistance of 2 or more helpers is required for the patient to complete the activity. If activity was not attempted, code reason: 7-Patient Refused. 9-Not Applicable-not attempted and the patient did not perform the activity before the current illness, exacerbation or injury. 10-Not Attempted due to Environmental Limitations-(lack of equipment, weather restraints, etc.). 88-Not Attempted due to Medical Conditions or Safety Concerns. Bed Mobility: 4 Transfers (B,C,W/C): 2 Indoor Mobility (Ambulation): Not Applicalbe Prior Devices Use: Manual wheelchair Pt. has been non-ambulatory since October following Covid. She currently has a manual w/c, reports inability to stand. PT Evaluation-Current Subjective Pt. in bed, says "I can't do anything right now I'm pooping." Per nursing, this is the 4th BM this AM. Pt. agrees to therapy following pericare from nursing. Objective Patient Orientation: Person, Place, Time, Situation Attachments: Fernandez Catheter, IV wound vac on sacrum Integumentary/Posture Integumentary see nursing notes Bowel Incontinence: Yes Bladder Incontinence: Fernandez Cath Posture kyphotic Neuromuscular (Tone, Coordination, Reflexes) diminished Sensory Vision: Wears Glasses Hearing: Functional Sensation Right Upper Extremit: Impaired Sensation Left Upper Extremity: Impaired Sensation Right Lower Extremit: Impaired Sensation Left Lower Extremity: Impaired Transfers Sit to Lying (QC): 1 Lying to Sitting/Side of Bed(Q: 1 Gait Does the Patient Walk?: No and Walking Goal NOT indicated Wheelchair Training Does the Pt Use a Wheelchair?: Yes Type of Wheelchair: Manual Balance Sitting Static: Poor Assessment/Needs Pt. is a 36 y.o. female with significant debility d/t post-covid syndrome. Pt. has been non-ambulatory since October and states she has been unable to stand. Pt. says she was able to regain bed mobility and sitting balance at correction. Currently patient is max A x 2 for bed mobility, assist x 1-2 with sitting balance at edge of bed. Pt. would benefit from skilled PT to improve mobility and strength. Rehab Potential: Guarded PT Making Department Preparer Goals Long-Term Goals PT Long-Term Goals Time Frame: Apr 14, 2021 Roll Left & Right (QC): 4 Sit to Lying (QC): 3 Lying-Sitting on Side/Bed(QC): 3 Sit to Stand (QC): 1 Chair/Lok-me-Ykeoj Xfer(QC): 1 PT Plan Problem List Problem List: Activity Tolerance, Functional Strength, Safety, Balance, Gait, Transfer, Bed Mobility, ROM Treatment/Plan Treatment Plan: Continue Plan of Care Treatment Plan: Bed Mobility, Concurrent Therapy, Education, Functional Activity John Paul, Functional Strength, Gait, Safety, Therapeutic Exercise, Transfers Treatment Duration: Apr 14, 2021 Frequency: 6 times per week Estimated Hrs Per Day: .25 hour per day Patient and/or Family Agrees t: Yes Time/GCodes Time In: 1015 Time Out: 1035 Total Billed Treatment Time: 20 Total Billed Treatment 1, [facility] 20' LUCIE MONTES DE OCA PT Mar 31, 2021 10:48
[2021-03-31] MEDS: MAGNESIUM 1 GM/100 ML IVPB 100 ML IV SCH ×4 (11:44→13:27)
[2021-03-31] MEDS: POTASSIUM CL 10MEQ/50ML IVPB 50 ML IV SCH ×4 (11:44→13:27)
[2021-03-31] MEDS: KCL 20 MEQ TAB (K-DUR) PO SCH (11:45)
[2021-03-31] MEDS ORDERED: NS IV 500 ML 500 ML IV SCH (11:45)
[2021-03-31] MEDS: LACTOBACILLUS Acidoph/Bulgar 1 GM (LACTINEX) PACKET PO SCH ×3 (11:53→21:31)
--- NOTE | 2021-03-31 12:50 | Tele-ICU Progress Note ---
Subjective Date Seen by a Provider: Mar 31, 2021 Time Seen by a Provider: 12:43 Subjective/Events-last exam Patient today feels tired however her blood pressure improved and able to wean her off the Levophed. However she dropped hemoglobin from 9.5-6.5. She is having diarrhea but no blood in the stool. No obvious clinical bleeding present. Apparently the hemoglobin was retested x3 all of them came below 6.5. A unit of blood transfusion has been ordered and will check after the blood transfusion repeat hemoglobin. Her urine and skin and soft tissue cultures grew Pseudomonas aeruginosa which is resistant to moderate MR number of antibiotics including Zosyn. She is started on cefepime today. Her electrolytes including potassium and magnesium are somewhat low which I have replaced. Video visit made and discussed with the patient and DRAWBR[employer] TENDER Angelica. Review of Systems ros per attending physician Sepsis Event Evaluation Height, Weight, BMI Height: '" Weight: lbs. oz. kg; 32.94 BMI Method: Focused Exam Lactate Level 03/28/21 15:09: Lactic Acid Level 1.92 Exam Exam Patient acknowledged, consented, and participated in this virtual visit which was conducted using real time audio/video Vital Signs Date Time Temp Pulse Resp B/P (MAP) Pulse Ox O2 Delivery O2 Flow Rate FiO2 03/31/21 12:00 113 21 95/71 94 Nasal Cannula 1.00 03/31/21 11:35 Room Air 03/31/21 11:35 37.2 03/31/21 11:00 109 13 100 Nasal Cannula 1.00 03/31/21 10:00 111 17 94/62 95 Nasal Cannula 1.00 03/31/21 09:00 112 15 94/65 99 Nasal Cannula 1.00 03/31/21 08:00 Nasal Cannula 1.00 03/31/21 08:00 105 10 107/61 95 Nasal Cannula 1.00 03/31/21 07:58 36.0 03/31/21 07:00 91 03/31/21 07:00 94 18 116/56 93 Nasal Cannula 1.00 03/31/21 06:00 97 19 126/53 91 Nasal Cannula 1.00 03/31/21 05:00 85 18 119/57 94 Nasal Cannula 1.00 03/31/21 04:00 90 16 112/59 99 Nasal Cannula 1.00 03/31/21 04:00 Nasal Cannula 1.00 03/31/21 03:00 101 19 105/53 92 Nasal Cannula 1.00 03/31/21 02:00 98 18 107/54 94 Nasal Cannula 1.00 03/31/21 01:00 105 03/31/21 01:00 106 19 100/49 92 Nasal Cannula 1.00 03/31/21 00:00 112 21 114/64 95 Nasal Cannula 1.00 03/30/21 23:59 Nasal Cannula 1.00 03/30/21 23:00 106 15 113/56 96 Nasal Cannula 1.00 03/30/21 22:00 109 15 111/63 95 Nasal Cannula 1.00 03/30/21 21:00 109 15 109/79 97 Nasal Cannula 1.00 03/30/21 20:00 116 14 115/65 95 Nasal Cannula 1.00 03/30/21 20:00 36.1 03/30/21 20:00 Nasal Cannula 1.00 03/30/21 19:00 118 03/30/21 19:00 114 21 112/62 95 Nasal Cannula 1.00 03/30/21 18:00 117 10 119/60 99 Nasal Cannula 1.00 03/30/21 17:45 108 22 110/67 93 03/30/21 17:30 112 25 114/64 96 03/30/21 17:15 97 16 108/67 90 03/30/21 17:00 85 27 114/79 96 Nasal Cannula 1.00 03/30/21 16:45 105 14 112/66 95 03/30/21 16:30 90 14 119/70 95 03/30/21 16:00 103 90 92/55 100 Nasal Cannula 1.00 03/30/21 16:00 36.4 03/30/21 16:00 Room Air 03/30/21 15:45 105 21 117/89 98 03/30/21 15:30 100 26 127/65 95 03/30/21 15:15 104 113/59 03/30/21 15:00 96 26 112/54 95 Nasal Cannula 1.00 03/30/21 14:45 109 21 122/65 96 03/30/21 14:30 102 21 118/68 97 03/30/21 14:15 103 117/53 03/30/21 14:00 102 21 118/74 95 Nasal Cannula 1.00 03/30/21 13:45 106 16 118/72 96 03/30/21 13:30 98 18 120/74 98 03/30/21 13:15 109 14 116/102 03/30/21 13:00 106 14 121/71 97 03/30/21 12:58 100 I & O 03/31/21 07:00 Intake Total 6052.5 ml Output Total 3925 ml Balance 2127.5 ml Height & Weight Height: '" Weight: lbs. oz. kg; 32.94 BMI Method: General Appearance: Chronically ill HEENT: PERRL/EOMI Neck: Limited Range of Motion Respiratory: Chest Non Tender, Lungs Clear, Normal Breath Sounds, No Accessory Muscle Use, No Respiratory Distress Cardiovascular: Regular Rate, Rhythm, No Gallop, No Murmur Capillary Refill: Less Than 3 Seconds Peripheral Pulses: 2+ Radial Pulses (R), 2+ Radial Pulses (L) Gastrointestinal: non tender, soft, no organomegaly Extremity: Pedal Edema, Other (Foot drop left foot) Neurologic/Psychiatric: Alert, Oriented x3, Depressed Affect Skin: Pallor Other comments PE PER ATTENDING PHYSICIAN Results Lab Laboratory Tests 03/30/21 08:50 03/31/21 07:50 Assessment/Plan Assessment/Plan 1. Possible septic shock and NOW IMPROVING 2. Pseudomonas UTI and decubitus ulcer infection resistant to Zosyn. 3. Sacral decubitus ulcer with infection 4. Anemia probably acute on chronic compounded by IV hydration got wose, no active bleeding clinically 5. Severe deconditioning. Recommendations 1. Continue IV antibiotics per primary care physician 2. Transfuse 1 unit of Prbc's nd recheck Hb 3. Sacral decubitus ulcer care per surgery currently on a wound VAC. 4. Continue monitor electrolytes, K and mg replaced. 5. Nutritional support. 6. DVT prophylaxis and ulcer prophylaxis. Currently patient on Eliquis. Critical Care: Critically Ill Patient Time spent with patient (mins): 35 SAPPHIRE GARNICA MD Mar 31, 2021 12:50
[2021-03-31 13:41] VITALS: BP 109/70
[2021-03-31 13:55] VITALS: BP 101/65
[2021-03-31 16:15] VITALS: BP 106/85
[2021-03-31 17:26] LABS: HEMATOCRIT 24 % (35-52); HEMOGLOBIN 7.2 g/dL (11.5-16.0); MEAN CORPUSCULAR HEMOGLOBIN 30 pg (25-34); MEAN CORPUSCULAR HGB CONC 31 g/dL (32-36); MEAN CORPUSCULAR VOLUME 98 fL (80-99); MEAN PLATELET VOLUME 8.3 fL (9.0-12.2); PLATELET COUNT 254 10^3/uL (130-400)
[2021-03-31] MEDS: CEFEPIME INJECTION 2,000 MG in NS (IVPB) 50 ML IV SCH (21:31)
[2021-03-31] MEDS: VANCOMYCIN 1 GM/NS 250 ML IVPB IV SCH ×2 (23:49)
[2021-04-01 04:50] LABS: BASOPHILS % (AUTO) 0 % (0-10); EOSINOPHILS # (AUTO) 0.3 10^3/uL (0.0-0.3); EOSINOPHILS % (AUTO) 9 % (0-10); HEMATOCRIT 23 % (35-52); LYMPHOCYTES # (AUTO) 1.3 10^3/uL (1.0-4.0); LYMPHOCYTES % (AUTO) 33 % (12-44); MEAN CORPUSCULAR HEMOGLOBIN 30 pg (25-34); MEAN CORPUSCULAR HGB CONC 30 g/dL (32-36); MEAN CORPUSCULAR VOLUME 99 fL (80-99); MEAN PLATELET VOLUME 8.5 fL (9.0-12.2); MONOCYTES # (AUTO) 0.4 10^3/uL (0.0-1.0); MONOCYTES % (AUTO) 11 % (0-12); NEUTROPHILS # (AUTO) 1.8 10^3/uL (1.8-7.8); NEUTROPHILS % (AUTO) 46 % (42-75); PLATELET COUNT 266 10^3/uL (130-400); WHITE BLOOD COUNT 3.8 10^3/uL (4.3-11.0)
[2021-04-01 05:00] LABS: ALBUMIN 2.8 GM/DL (3.2-4.5); POTASSIUM 2.8 MMOL/L (3.6-5.0)
[2021-04-01 05:02] LABS: CALCIUM 7.3 MG/DL (8.5-10.1)
[2021-04-01 05:05] LABS: BILIRUBIN,TOTAL 0.4 MG/DL (0.1-1.0)
[2021-04-01 05:06] LABS: CREATININE SERUM 0.65 MG/DL (0.60-1.30)
[2021-04-01] MEDS: POTASSIUM CL 10MEQ/50ML IVPB 50 ML IV SCH (05:08)
[2021-04-01] MEDS: KCL 20 MEQ TAB (K-DUR) PO SCH ×4 (05:09→21:52)
[2021-04-01] MEDS: MAGNESIUM 1 GM/100 ML IVPB 100 ML IV SCH (05:11)
[2021-04-01] MEDS: LACTOBACILLUS Acidoph/Bulgar 1 GM (LACTINEX) PACKET PO SCH ×4 (05:29→21:52)
[2021-04-01] MEDS: ALBUMIN 25% 25 GM/100 ML 100 ML IV SCH ×3 (05:29→21:52)
[2021-04-01] MEDS: LACTATED RINGERS 1,000 ML IV SCH ×3 (05:29→18:02)
[2021-04-01] MEDS: NOREPINEPHRINE 8 MG/250 ML 250 ML IV SCH (05:29)
[2021-04-01] MEDS: ASPIRIN 81 MG CHEW (CHILDREN'S ASA) PO SCH (08:22)
[2021-04-01] MEDS: SERTRALINE 50 MG (ZOLOFT) TABLET PO SCH (08:22)
[2021-04-01] MEDS: CEFEPIME INJECTION 2,000 MG in NS (IVPB) 50 ML IV SCH ×2 (08:25→21:51)
[2021-04-01] MEDS: VANCOMYCIN 1 GM/NS 250 ML IVPB IV SCH ×4 (08:25→21:52)
[2021-04-01] MEDS: HYPOCHLOROUS ACID/NaCl (VASHE) 250 ML IR SCH ×2 (08:47→22:00)
--- NOTE | 2021-04-01 08:48 | Tele-ICU Progress Note ---
Progress Note video rounds completed 36 y/o with septic hock secondry to infected sacral decubitus On cefipime and vanc Overall improved, now off levophed PE: comfortable Pulse: still tachy 112, BP 110/67 Plan: continue antibiotic and montoring for septic shock Focused Exam Height, Weight, BMI Height: '" Weight: lbs. oz. kg; 32.94 BMI Method: Laboratory Tests 03/31/21 17:18 04/01/21 04:40 Labs Labs Laboratory Tests 03/31/21 17:18: White Blood Count 4.0L, Red Blood Count 2.41L, Hemoglobin 7.2L, Hematocrit 24L, Mean Corpuscular Volume 98, Mean Corpuscular Hemoglobin 30, Mean Corpuscular Hemoglobin Concent 31L, Red Cell Distribution Width 15.8H, Platelet Count 254, Mean Platelet Volume 8.3L 03/31/21 21:20: Vancomycin Level Trough 16.5 04/01/21 04:40: White Blood Count 3.8L, Red Blood Count 2.33L, Hemoglobin 7.0L, Hematocrit 23L, Mean Corpuscular Volume 99, Mean Corpuscular Hemoglobin 30, Mean Corpuscular Hemoglobin Concent 30L, Red Cell Distribution Width 16.4H, Platelet Count 266, Mean Platelet Volume 8.5L, Immature Granulocyte % (Auto) 1, Neutrophils (%) (Auto) 46, Lymphocytes (%) (Auto) 33, Monocytes (%) (Auto) 11, Eosinophils (%) (Auto) 9, Basophils (%) (Auto) 0, Neutrophils # (Auto) 1.8, Lymphocytes # (Auto) 1.3, Monocytes # (Auto) 0.4, Eosinophils # (Auto) 0.3, Basophils # (Auto) 0.0, Immature Granulocyte # (Auto) 0.0, Sodium Level 147H, Potassium Level 2.8L, Chloride Level 114H, Carbon Dioxide Level 21, Anion Gap 12, Blood Urea Nitrogen 4L, Creatinine 0.65, Estimat Glomerular Filtration Rate 102, BUN/Creatinine Ratio 6, Glucose Level 87, Calcium Level 7.3L, Corrected Calcium 8.3L, Phosphorus Level 3.0, Magnesium Level 2.0, Total Bilirubin 0.4, Aspartate Amino Transf (AST/SGOT) 32, Alanine Aminotransferase (ALT/SGPT) 19, Alkaline Phosphatase 66, Total Protein 4.0L, Albumin 2.8L Microbiology 03/31/21 C. difficile GDH Antigen & Toxins - Final, Complete 03/29/21 Gram Stain - Final, Resulted 03/29/21 Surgical Culture - Preliminary, Resulted Pseudomonas aeruginosa 03/29/21 Catheter Tip Culture - Preliminary, Resulted Staphylococcus epidermidis 03/29/21 Urine Culture - Preliminary, Resulted Pseudomonas aeruginosa Enterobacter cloacae complex 03/29/21 MRSA Screen - Final, Complete MRSA not isolated ERIKA DUFFY MD Apr 01, 2021 08:48
[2021-04-01] MEDS ORDERED: KCL 20 MEQ TAB (K-DUR) PO ONE ×3 (09:00→13:00)
--- NOTE | 2021-04-01 09:59 | Progress Note - Hospitalist ---
Subjective HPI/CC On Admission Date Seen by Provider: Apr 01, 2021 Time Seen by Provider: 08:30 Subjective/Events-last exam Patient is without complaint this morning. She had 2 units of blood yesterday. She continues to have a wound VAC on and is lying on her side Objective Exam Vital Signs Vital Signs Date Time Temp Pulse Resp B/P (MAP) Pulse Ox O2 Delivery O2 Flow Rate FiO2 04/01/21 12:00 37.7 101 20 118/78 92 Room Air 03/31/21 23:00 Capillary Refill : Less Than 3 Seconds General Appearance: No Apparent Distress, Chronically ill HEENT: PERRL/EOMI, Other (Course) Neck: Non Tender, Limited Range of Motion Respiratory: Lungs Clear, Normal Breath Sounds, No Accessory Muscle Use, No Respiratory Distress Cardiovascular: Regular Rate, Rhythm, No Murmur Gastrointestinal: Normal Bowel Sounds, Non Tender, Soft Rectal: Deferred Extremity: Pedal Edema Neurologic/Psychiatric: Alert, Oriented x3, Depressed Affect Skin: Warm/Dry, Pallor Results/Procedures Lab Laboratory Tests 03/31/21 17:18 04/01/21 04:40 Patient resulted labs reviewed. Assessment/Plan Assessment and Plan Assess & Plan/Chief Complaint Severe sepsis resolving on vancomycin and cefepime Diarrhea we will add lactobacillus, monitor for C. difficile possibilities Sacral decubitus ulcer followed by wound care, wound VAC Hypokalemia will replace Anemia that is post transfusion Post Covid with deconditioning will begin PT OT Foot drop Critical Care Critically Ill Patient LAURIE NORTON MD Apr 01, 2021 09:59
[2021-04-01] MEDS ORDERED: HEParin (CENTRAL IV FLUSH) 500 UNIT/5 ML SYR IV ONE (19:45)
[2021-04-01] MEDS ORDERED: HEParin (CENTRAL IV FLUSH) 500 UNIT/5 ML SYR ONE (19:46)
[2021-04-01] MEDS: ONDANSETRON 4 MG/2 ML (SDV) Z0FRAN IVP PRN (21:52)
[2021-04-02] MEDS: MAGNESIUM 1 GM/100 ML IVPB 100 ML IV SCH (05:37)
[2021-04-02] MEDS: POTASSIUM CL 10MEQ/50ML IVPB 50 ML IV SCH (05:38)
[2021-04-02] MEDS: KCL 20 MEQ TAB (K-DUR) PO SCH ×3 (05:38→21:17)
[2021-04-02] MEDS: LACTOBACILLUS Acidoph/Bulgar 1 GM (LACTINEX) PACKET PO SCH ×4 (05:39→21:38)
[2021-04-02 06:20] LABS: BASOPHILS % (AUTO) 1 % (0-10); EOSINOPHILS # (AUTO) 0.3 10^3/uL (0.0-0.3); EOSINOPHILS % (AUTO) 6 % (0-10); HEMATOCRIT 23 % (35-52); HEMOGLOBIN 7.1 g/dL (11.5-16.0); LYMPHOCYTES # (AUTO) 1.3 10^3/uL (1.0-4.0); LYMPHOCYTES % (AUTO) 30 % (12-44); MEAN CORPUSCULAR HEMOGLOBIN 31 pg (25-34); MEAN CORPUSCULAR HGB CONC 31 g/dL (32-36); MEAN CORPUSCULAR VOLUME 100 fL (80-99); MEAN PLATELET VOLUME 9.2 fL (9.0-12.2); MONOCYTES # (AUTO) 0.5 10^3/uL (0.0-1.0); MONOCYTES % (AUTO) 11 % (0-12); NEUTROPHILS # (AUTO) 2.3 10^3/uL (1.8-7.8); NEUTROPHILS % (AUTO) 52 % (42-75); PLATELET COUNT 243 10^3/uL (130-400); WHITE BLOOD COUNT 4.4 10^3/uL (4.3-11.0)
[2021-04-02 06:27] LABS: ALBUMIN 3.3 GM/DL (3.2-4.5)
[2021-04-02 06:28] LABS: POTASSIUM 4.2 MMOL/L (3.6-5.0)
[2021-04-02 06:29] LABS: CALCIUM 7.2 MG/DL (8.5-10.1)
[2021-04-02 06:30] LABS: TOTAL PROTEIN 4.4 GM/DL (6.4-8.2)
[2021-04-02 06:32] LABS: BILIRUBIN,TOTAL 0.7 MG/DL (0.1-1.0)
[2021-04-02 06:34] LABS: CREATININE SERUM 0.68 MG/DL (0.60-1.30)
[2021-04-02 06:37] LABS: MAGNESIUM 1.8 MG/DL (1.6-2.4)
[2021-04-02] MEDS: ALBUMIN 25% 25 GM/100 ML 100 ML IV SCH ×2 (07:50→14:35)
--- NOTE | 2021-04-02 07:53 | Progress Note - Surgery ---
Subjective Date Seen by a Provider: Apr 02, 2021 Time Seen by a Provider: 07:00 Subjective/Events-last exam Pt is being followed for her Stage IV sacral decubitus ulcer. Lying supine in bed when I visited her. Wound currently has a wound-vac. Pt had an episode of diarrhea last night and did not want me to look at the wound-vac. She reports still having pain on her sacrum from the ulcer. Also had NVD last night. Pt is alert, aware, and responsive to my questioning. Review of Systems General: No Chills, No Night Sweats; Fatigue HEENT: No Head Aches, No Visual Changes Pulmonary: No Dyspnea, No Cough Cardiovascular: No: Chest Pain, Palpitations Gastrointestinal: Nausea, Diarrhea Genitourinary: No Dysuria, No Frequency Neurological: No: Change in speech, Confusion Objective Exam Vital Signs Date Time Temp Pulse Resp B/P (MAP) Pulse Ox O2 Delivery O2 Flow Rate FiO2 04/02/21 04:00 36.6 85 18 127/78 91 Room Air 04/01/21 23:30 36.3 105 20 130/67 92 Room Air 04/01/21 20:00 95 Room Air 04/01/21 19:18 37.3 111 18 130/72 95 Room Air 04/01/21 16:00 37.7 110 18 107/70 91 Room Air 04/01/21 12:00 37.7 101 20 118/78 92 Room Air 04/01/21 10:20 37.2 98 16 110/73 98 Room Air 04/01/21 09:00 103 22 103/71 94 Room Air 04/01/21 08:00 114 11 110/67 91 Room Air 04/01/21 08:00 36.2 I & O 04/02/21 06:59 Intake Total 2122 ml Output Total 3800 ml Balance -1678 ml Capillary Refill : Less Than 3 Seconds General Appearance: No Apparent Distress, Chronically ill HEENT: PERRL/EOMI Neck: Full Range of Motion, Normal Inspection, Non Tender, Supple Respiratory: Chest Non Tender, Lungs Clear, Normal Breath Sounds, No Accessory Muscle Use, No Respiratory Distress Cardiovascular: Regular Rate, Rhythm, No Murmur Peripheral Pulses: 2+ Radial Pulses (R), 2+ Radial Pulses (L) Gastrointestinal: normal bowel sounds, non tender, soft, no organomegaly Extremity: Pedal Edema Neurologic/Psychiatric: Alert, Oriented x3, Depressed Affect Skin: Warm/Dry, Pallor, Other (Wound vac on sacrum. Did not observe. Pt had an episode of diarrhea last night and did not want me to look at wound vac until she could get cleaned. Machine had less than 100ml of fluid in it.) Lymphatic: No Adenopathy (Cervical) Results Lab Laboratory Tests 04/02/21 05:20: White Blood Count 4.4, Red Blood Count 2.33L, Hemoglobin 7.1L, Hematocrit 23L, Mean Corpuscular Volume 100H, Mean Corpuscular Hemoglobin 31, Mean Corpuscular Hemoglobin Concent 31L, Red Cell Distribution Width 16.4H, Platelet Count 243, Mean Platelet Volume 9.2, Immature Granulocyte % (Auto) 1, Neutrophils (%) (Auto) 52, Lymphocytes (%) (Auto) 30, Monocytes (%) (Auto) 11, Eosinophils (%) (Auto) 6, Basophils (%) (Auto) 1, Neutrophils # (Auto) 2.3, Lymphocytes # (Auto) 1.3, Monocytes # (Auto) 0.5, Eosinophils # (Auto) 0.3, Basophils # (Auto) 0.0, Immature Granulocyte # (Auto) 0.0, Sodium Level 148H, Potassium Level 4.2, Chloride Level 115H, Carbon Dioxide Level 22, Anion Gap 11, Blood Urea Nitrogen 3L, Creatinine 0.68, Estimat Glomerular Filtration Rate 97, BUN/Creatinine Ratio 4, Glucose Level 78, Calcium Level 7.2L, Corrected Calcium 7.8L, Magnesium Level 1.8, Total Bilirubin 0.7, Aspartate Amino Transf (AST/SGOT) 32, Alanine Aminotransferase (ALT/SGPT) 25, Alkaline Phosphatase 63, Total Protein 4.4L, Albumin 3.3 Microbiology 03/31/21 C. difficile GDH Antigen & Toxins - Final, Complete 03/29/21 Gram Stain - Final, Complete 03/29/21 Surgical Culture - Final, Complete Pseudomonas aeruginosa 03/29/21 Catheter Tip Culture - Final, Complete Staphylococcus epidermidis 03/29/21 Urine Culture - Final, Complete Pseudomonas aeruginosa Enterobacter cloacae complex 03/29/21 MRSA Screen - Final, Complete MRSA not isolated Assessment/Plan Assessment/Plan Assessment/Plan Sacral Ulcer - Stage IV Has not improved since patients hospitalization in November. Wound vac placed. Have not yet observed. Biopsy of piece of bone from sacrum grew pseudomonas. YUDELKA MINER Apr 02, 2021 07:53
[2021-04-02] MEDS: LACTATED RINGERS 1,000 ML IV SCH ×4 (08:10→21:39)
[2021-04-02] MEDS ORDERED: TROUGH ORDER-PHARMACY XX NR (09:00)
[2021-04-02] MEDS: VANCOMYCIN 1 GM/NS 250 ML IVPB IV SCH ×2 (10:00)
[2021-04-02] MEDS: SERTRALINE 50 MG (ZOLOFT) TABLET PO SCH (10:23)
[2021-04-02] MEDS: CEFEPIME INJECTION 2,000 MG in NS (IVPB) 50 ML IV SCH ×3 (10:23→21:16)
[2021-04-02] MEDS: ASPIRIN 81 MG CHEW (CHILDREN'S ASA) PO SCH (10:23)
--- NOTE | 2021-04-02 10:33 | Physical Therapy Daily Note ---
PT Daily Note-Current Subjective Patient very tearful. Mental Status Patient Orientation: Normal For Age Attachments: Central Line Transfers SCALE: Activities may be completed with or without assistive devices. 8-Xkyyzwqabm-xyekooz completes the activity by him/herself with no assistance from a helper. 5-Set-up or Clean-up Assistance-helper sets up or cleans up; patient completes activity. [place] assists only prior to or following the activity. 4-Supervision or Touching Assistance-helper provides verbal cues and/or touching/steadying and/or contact guard assistance as patient completes activity. Assistance may be provided throughout the activity or intermittently. 3-Partial/Moderate Assistance-helper does LESS THAN HALF the effort. [place] lifts, holds or supports trunk or limbs, but provides less than half the effort. 2-Substantial/Maximal Assistance-helper does MORE THAN HALF the effort. [place] lifts or holds trunk or limbs and provides more than half the effort. 1-Tfdpomlul-pcflde does ALL the effort. Patient does none of the effort to complete the activity. Or, the assistance of 2 or more helpers is required for the patient to complete the activity. If activity was not attempted, code reason: 7-Patient Refused. 9-Not Applicable-not attempted and the patient did not perform the activity before the current illness, exacerbation or injury. 10-Not Attempted due to Environmental Limitations-(lack of equipment, weather restraints, etc.). 88-Not Attempted due to Medical Conditions or Safety Concerns. Roll Left & Right (QC): 3 (side to side x 5 sets to cleanse and change due to incontinence BM) Exercises Supine Ex: Ankle pumps (stretching), Heel Slides Assessment Assisted wound care nursing to change wound vac. PT address rolling and positioning patient. PT Fruit Washer Goals Correction Goals PT Fruit Washer Goals Time Frame: Apr 14, 2021 Roll Left & Right (QC): 4 Sit to Lying (QC): 3 Lying-Sitting on Side/Bed(QC): 3 Sit to Stand (QC): 1 Chair/Pgs-ky-Wqobv Xfer(QC): 1 PT Plan Treatment/Plan Treatment Plan: Continue Plan of Care Treatment Plan: Bed Mobility, Concurrent Therapy, Education, Functional Activity John Paul, Functional Strength, Gait, Safety, Therapeutic Exercise, Transfers Treatment Duration: Apr 14, 2021 Frequency: 6 times per week Estimated Hrs Per Day: .25 hour per day Patient and/or Family Agrees t: Yes Time/GCodes Time In: 940 Time Out: 1010 Total Billed Treatment Time: 30 Total Billed Treatment 1 visit FA x 2 30 min LENA TALAMANTES PT Apr 02, 2021 10:33
--- NOTE | 2021-04-02 10:34 | Occupational Therapy Eval ---
OT Evaluation-General/PLF Medical Diagnosis Admission Date Mar 28, 2021 at 12:52 Medical Diagnosis: sepsis Onset Date: Mar 28, 2021 Therapy Diagnosis Therapy Diagnosis: Debility, impaired adls/iadls, balance, endurance Precautions Precautions/Isolations: Contact Isolation, Fall Prevention, Standard Precautions, Pressure Ulcer Weight Bear Status Wound vac on sacrum Referral Physician: Dr. Frederick Referral Reason: Evaluation/Treatment Medical History Additional Medical History Post covid syndrome, chronic indwelling catheter, sacral wound, NIDDM Current History Pt. with significant debility d/t post-covid syndrome. She was most recently at a local alf post stays at [facility]. She has been non- ambulatory since October and states she has been unable to stand. Pt. says she was able to regain bed mobility and sitting balance at alf. She reports that since October she has only gotten dressed one time. She has not taken any showers and instead completed bed level sponge baths with assistance from staff. Reviewed History: Yes Social History Home: Longterm ADL-Prior Level of Function SCALE: Activities may be completed with or without assistive devices. 1-Binvfgtaro-jbegkcj completes the activity by him/herself with no assistance from a helper. 5-Set-up or Clean-up Assistance-helper sets up or cleans up; patient completes activity. [place] assists only prior to or following the activity. 4-Supervision or Touching Assistance-helper provides verbal cues and/or touching/steadying and/or contact guard assistance as patient completes activity. Assistance may be provided throughout the activity or intermittently. 3-Partial/Moderate Assistance-helper does LESS THAN HALF the effort. [place] lifts, holds or supports trunk or limbs, but provides less than half the effort. 2-Substantial/Maximal Assistance-helper does MORE THAN HALF the effort. [place] lifts or holds trunk or limbs and provides more than half the effort. 4-Zhluaywwc-fxrfex does ALL the effort. Patient does none of the effort to complete the activity. Or, the assistance of 2 or more helpers is required for the patient to complete the activity. If activity was not attempted, code reason: 7-Patient Refused. 9-Not Applicable-not attempted and the patient did not perform the activity before the current illness, exacerbation or injury. 10-Not Attempted due to Environmental Limitations-(lack of equipment, weather restraints, etc.). 88-Not Attempted due to Medical Conditions or Safety Concerns. Self Care: Dependent Functional Cognition: Independent OT Current Status Subjective Pt tearful and in significant amounts of pain, no numerical value given. RN aware. Appearance Pt left in sidelying with pillows placed for positioning. Education on pressure relief at OT departure. RN in room. Mental Status/Objective Patient Orientation: Person, Place, Situation Attachments: Drains, Fernandez Catheter, IV, Other-See Comments Current Upper Extremity ROM RUE: WFL LUE shoulder: ~3/4 AROM, elbow-distally WFL Upper Extremity Strength 3/5 grossly wound vac ADL-Treatment Upper Body Dressing (QC): 1 (per clinical judgment) Lower Body Dressing (QC): 1 (per clinical judgment) On/Off Footwear (QC): 1 (per clinical judgment) Toileting Hygiene (QC): 1 Pt working on bed mobility as OT arrives. Min A to roll R/L. Pt incontinent of liquid bowels.Dep for tsering care. Wound nurse enters room to assess wound vac. Multiple hands needed to assist with management of wound vac and ensure good suction. Education OT Patient Education: Correct positioning, Purpose of tx/functional activities, Rehab process, Transfer techniques Teaching Recipient: Patient Teaching Methods: Discussion Response to Teaching: Return Demonstration OT Fpc Goals Embroidery Specialist Goals Time Frame: Apr 30, 2021 Eating (QC): 5 Oral Hygiene (QC): 5 Toileting Hygiene (QC): 3 Shower/Bathe Self (QC): 3 Upper Body Dressing (QC): 4 Lower Body Dressing (QC): 3 On/Off Footwear (QC): 4 1=Demonstrate adherence to instructed precautions during ADL tasks. 2=Patient will verbalize/demonstrate understanding of assistive devices/modifications for ADL. 3=Patient will improve strength/tolerance for activity to enable patient to perform ADL's. OT Education/Plan Problem List/Assessment Assessment: Decreased Activ Tolerance, Decreased UE Strength, Dependent Transfers, Impaired Bed Mobility, Impaired Funct Balance, Impaired I ADL's, Impaired Self-Care Skills, Restricted Funct UE ROM Discharge Recommendations Plan/Recommendations: Continue POC Therapy Discharge Recommendati: Post Acute OT Comment continue to assess Barriers to Progress stage IV sacral decubitus ulcer, Treatment Plan/Plan of Care Treatment,Training & Education: Yes Patient would benefit from OT for education, treatment and training to promote independence in ADL's, mobility, safety and/or upper extremity function for ADL's. Plan of Care: ADL Retraining, Functional Mobility, Group Exercise/Act as Ind, UE Funct Exercise/Act, W/C Management Training Treatment Duration: Apr 30, 2021 Frequency: 5 times per week Estimated Hrs Per Day: .25 hour per day Agreement: Yes Rehab Potential: Guarded Time/GCodes Start Time: 09:42 Stop Time: 10:13 Total Time Billed (hr/min): 31 Billed Treatment Time 1 visit EVH (10 min) ADL (21 min) Latoya Becker OT Apr 02, 2021 10:34
[2021-04-02] MEDS: HYPOCHLOROUS ACID/NaCl (VASHE) 250 ML IR SCH ×2 (10:39→22:36)
[2021-04-02] MEDS: HYDROcodone/APAP 5 MG/325 MG (LORTAB) TAB PO PRN (10:52)
[2021-04-02] MEDS: fluCOnazole (DIFLUCAN) 100 MG TAB PO SCH (11:47)
[2021-04-02] MEDS: CHOLESTYRAMINE 4 GM (QUESTRAN LITE, PREVALITE) PKT PO SCH ×3 (11:48→21:16)
[2021-04-02] MEDS: LACTOBACILLUS ACIDOPHILUS (PROBIOTIC) CAPSULE PO SCH ×2 (11:52→17:43)
[2021-04-02] MEDS: LOPERAMIDE 2 MG (IMODIUM) TABLET PO SCH ×2 (11:52→21:17)
--- NOTE | 2021-04-02 13:51 | Progress Note - Hospitalist ---
EDWARDAI Charlie 04/02/21 1351: Subjective HPI/CC On Admission Date Seen by Provider: Apr 02, 2021 Time Seen by Provider: 09:02 Subjective/Events-last exam Ms. Segal is a 36 y/o female with post-Covid syndrome. She currently has a sacral decubitus ulcer which became infected and caused her to become septic. This morning she says she feels "okay" and is just dealing with pain from her ulcer. She has a wound-vac on it. She complains of a lot of diarrhea this morning. She is currently on vancomycin and cefepime. Review of Systems General: Chills, Fatigue HEENT: Head Aches Pulmonary: No Dyspnea, No Cough Cardiovascular: No: Chest Pain, Palpitations Gastrointestinal: Nausea, Vomiting, Abdominal Pain Musculoskeletal: back pain (Sacral decubitus ulcer) Neurological: No: Confusion Focused Exam Capillary Refill: Less Than 3 Seconds Peripheral Pulses: 2+ Radial Pulses (R), 2+ Radial Pulses (L) Objective Exam Vital Signs Vital Signs Date Time Temp Pulse Resp B/P (MAP) Pulse Ox O2 Delivery O2 Flow Rate FiO2 04/02/21 11:52 37.0 98 18 124/87 91 Room Air 03/31/21 23:00 Capillary Refill : Less Than 3 Seconds General Appearance: No Apparent Distress, WD/WN Neck: Normal Inspection, Non Tender Respiratory: Chest Non Tender, Lungs Clear, Normal Breath Sounds, No Accessory Muscle Use, No Respiratory Distress Cardiovascular: Regular Rate, Rhythm, No Murmur, Normal Peripheral Pulses Gastrointestinal: Normal Bowel Sounds, Soft Extremity: Normal Capillary Refill, Normal Inspection Neurologic/Psychiatric: Alert, Oriented x3, No Motor/Sensory Deficits, Depressed Affect (Patient somnolent with flat affect) Skin: Normal Color, Warm/Dry Lymphatic: No Adenopathy (Head and neck) Results/Procedures Lab Laboratory Tests 04/02/21 05:20 Patient resulted labs reviewed. 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 Hgb 7.1 Cefepime and Vanc initiated empirically for sepsis She had Covid in November and she has been at [facility] since that time Sacral decubitis ulcer managed by wound care Pseudomonas noted with UTI placed on Cefepime Diflucan and Nystatin cream and powder initiated Review of Systems General: Fatigue Neurological: Weakness Objective Exam General Appearance: No Apparent Distress, WD/WN, Chronically ill Respiratory: Lungs Clear, Normal Breath Sounds Cardiovascular: Regular Rate, Rhythm Neurologic/Psychiatric: Alert, Oriented x3, No Motor/Sensory Deficits, energy scheduler II- XII Norm as Tested, Depressed Affect (Patient somnolent with flat affect) Assessment/Plan Assessment and Plan Assess & Plan/Chief Complaint Assessment: Pseudomonas UTI Decubitus ulcer management Diabetes Plan: Supportive care Poor prognosis long-term Supervisory-Addendum Brief Verification & Attestation Participated in pt care: history, MDM, physical Personally performed: exam, history, MDM, supervision of care Care discussed with: Medical Student Procedures: n/a Results interpretation: Verified all documentation Verification and Attestation of Medical Student E/M Service A medical student performed and documented this service in my presence. I reviewed and verified all information documented by the medical student and made modifications to such information, when appropriate. I personally performed the physical exam and medical decision making. Helene Edwards, Apr 03, 2021,06:02 AI LEON Apr 02, 2021 13:51 HELENE EDWARDS DO Apr 03, 2021 06:04
--- NOTE | 2021-04-02 13:54 | Diagnostic Imaging Report ---
INDICATION: Septic shock. PICC line placement. COMPARISON: 03/28/2021. FINDINGS: Single frontal radiographic view of the chest was obtained and demonstrates interval placement of left upper extremity PICC line, tip of which terminates in the high SVC near the junction of the innominate veins. Cardiac silhouette and pulmonary vasculature are within normal limits. Lungs show interval development of diffuse coarse prominence of the interstitium. No large effusion or pneumothorax is seen. Osseous structures show no acute abnormalities. IMPRESSION: 1. New left upper extremity PICC line with tip in the high SVC. 2. Interval development of diffuse coarse interstitial infiltrate. Correlation with COVID status is recommended. Dictated by: Dictated on workstation # [id number]
[2021-04-02] MEDS: NYSTATIN CREAM (MYCOSTATIN) 30 GM TUBE TP SCH ×2 (14:36→21:17)
--- NOTE | 2021-04-02 15:04 | Diagnostic Imaging Report ---
INDICATION: Evaluate PICC line. COMPARISON: Earlier this same day. FINDINGS: A frontal radiographic view of the chest was obtained and demonstrates an indwelling left upper extremity PICC line with the tip in the high SVC near the junction of the innominate veins. The lungs continue to show diffuse coarse interstitial opacities. Overall, the aeration is stable. There is no large effusion or pneumothorax. The cardiac silhouette and pulmonary vasculature are unremarkable. The osseous structures show no new acute abnormalities. IMPRESSION: 1. Left upper extremity PICC line with the tip in the high SVC. 2. Redemonstration of background diffuse interstitial infiltrate. Dictated by: Dictated on workstation # [id number]
[2021-04-02] MEDS: VANCOMYCIN 1500 MG/NS 500 ML IVPB IV SCH ×2 (21:16)
[2021-04-02] MEDS: MICONAZOLE 2% POWDER (DESENEX AF) 90 GM TOP SCH (21:17)
[2021-04-03] MEDS: LACTATED RINGERS 1,000 ML IV SCH (04:06)
[2021-04-03 04:18] LABS: BASOPHILS % (AUTO) 1 % (0-10); EOSINOPHILS # (AUTO) 0.3 10^3/uL (0.0-0.3); EOSINOPHILS % (AUTO) 7 % (0-10); HEMATOCRIT 23 % (35-52); HEMOGLOBIN 7.1 g/dL (11.5-16.0); LYMPHOCYTES # (AUTO) 1.7 10^3/uL (1.0-4.0); LYMPHOCYTES % (AUTO) 37 % (12-44); MEAN CORPUSCULAR HEMOGLOBIN 31 pg (25-34); MEAN CORPUSCULAR HGB CONC 31 g/dL (32-36); MEAN CORPUSCULAR VOLUME 100 fL (80-99); MEAN PLATELET VOLUME 8.9 fL (9.0-12.2); MONOCYTES # (AUTO) 0.5 10^3/uL (0.0-1.0); MONOCYTES % (AUTO) 11 % (0-12); NEUTROPHILS % (AUTO) 44 % (42-75); PLATELET COUNT 237 10^3/uL (130-400); WHITE BLOOD COUNT 4.6 10^3/uL (4.3-11.0)
[2021-04-03 04:31] LABS: ALBUMIN 3.2 GM/DL (3.2-4.5); POTASSIUM 3.6 MMOL/L (3.6-5.0)
[2021-04-03 04:32] LABS: CALCIUM 7.7 MG/DL (8.5-10.1)
[2021-04-03 04:34] LABS: TOTAL PROTEIN 4.4 GM/DL (6.4-8.2)
[2021-04-03 04:36] LABS: BILIRUBIN,TOTAL 0.6 MG/DL (0.1-1.0)
[2021-04-03 04:37] LABS: CREATININE SERUM 0.63 MG/DL (0.60-1.30)
[2021-04-03 04:40] LABS: MAGNESIUM 1.8 MG/DL (1.6-2.4)
[2021-04-03] MEDS: POTASSIUM CL 10MEQ/50ML IVPB 50 ML IV SCH ×3 (04:44→07:18)
[2021-04-03] MEDS: MAGNESIUM 1 GM/100 ML IVPB 100 ML IV SCH (04:44)
[2021-04-03] MEDS: KCL 20 MEQ TAB (K-DUR) PO SCH ×3 (04:45→23:17)
[2021-04-03] MEDS: CHOLESTYRAMINE 4 GM (QUESTRAN LITE, PREVALITE) PKT PO SCH ×4 (05:12→21:07)
[2021-04-03] MEDS: CEFEPIME INJECTION 2,000 MG in NS (IVPB) 50 ML IV SCH ×3 (05:12→23:11)
[2021-04-03] MEDS: LACTOBACILLUS Acidoph/Bulgar 1 GM (LACTINEX) PACKET PO SCH ×4 (05:12→21:07)
[2021-04-03] MEDS: NS IV 500 ML 500 ML IV SCH ×2 (06:07→23:11)
--- NOTE | 2021-04-03 09:56 | Physical Therapy Daily Note ---
PT Daily Note-Current Subjective Patient agrees to PT. Mental Status Patient Orientation: Normal For Age Attachments: Central Line Transfers SCALE: Activities may be completed with or without assistive devices. 6-Rpmpmaeats-owwkchz completes the activity by him/herself with no assistance from a helper. 5-Set-up or Clean-up Assistance-helper sets up or cleans up; patient completes activity. [place] assists only prior to or following the activity. 4-Supervision or Touching Assistance-helper provides verbal cues and/or touching/steadying and/or contact guard assistance as patient completes activity. Assistance may be provided throughout the activity or intermittently. 3-Partial/Moderate Assistance-helper does LESS THAN HALF the effort. [place] lifts, holds or supports trunk or limbs, but provides less than half the effort. 2-Substantial/Maximal Assistance-helper does MORE THAN HALF the effort. [place] lifts or holds trunk or limbs and provides more than half the effort. 7-Akmlqmohz-mgfgpm does ALL the effort. Patient does none of the effort to complete the activity. Or, the assistance of 2 or more helpers is required for the patient to complete the activity. If activity was not attempted, code reason: 7-Patient Refused. 9-Not Applicable-not attempted and the patient did not perform the activity before the current illness, exacerbation or injury. 10-Not Attempted due to Environmental Limitations-(lack of equipment, weather restraints, etc.). 88-Not Attempted due to Medical Conditions or Safety Concerns. Roll Left & Right (QC): 6 Sit to Lying (QC): 3 Lying to Sitting/Side of Bed(Q: 3 patient sat EOB x 15 min performing trunk rotation, crunches and cervical rotation Exercises Supine Ex: Bridging, Quad Set, Heel Slides, Knee to chest, Straight leg raise Supine Reps: 10 Seated Therapy Exercises: Long arc quads Seated Reps: 15 Assessment Patient tolerated treatment well and is improving with treatment plan. From a PT standpoint, patient would benefit from ARU to aggressively address gross and fine motor skills to return to home with family. PT Snf Goals Car Detailer Goals PT Car Detailer Goals Time Frame: Apr 14, 2021 Roll Left & Right (QC): 4 Sit to Lying (QC): 3 Lying-Sitting on Side/Bed(QC): 3 Sit to Stand (QC): 1 Chair/Fdj-nr-Asgto Xfer(QC): 1 PT Plan Treatment/Plan Treatment Plan: Continue Plan of Care Treatment Plan: Bed Mobility, Concurrent Therapy, Education, Functional Activity John Paul, Functional Strength, Gait, Safety, Therapeutic Exercise, Transfers Treatment Duration: Apr 14, 2021 Frequency: 6 times per week Estimated Hrs Per Day: .25 hour per day Patient and/or Family Agrees t: Yes Time/GCodes Time In: 900 Time Out: 930 Total Billed Treatment Time: 30 Total Billed Treatment 1 visit EX x 2 30 min LENA TALAMANTES PT Apr 03, 2021 09:56
[2021-04-03] MEDS ORDERED: CYANOCOBALAMIN INJ 1000 MCG/ML IM ONE (10:30)
[2021-04-03] MEDS ORDERED: IRON SUCROSE 200 MG/10 ML (VENOFER) VIAL IV ONE (10:30)
[2021-04-03] MEDS: ASPIRIN 81 MG CHEW (CHILDREN'S ASA) PO SCH (10:51)
[2021-04-03] MEDS: fluCOnazole (DIFLUCAN) 100 MG TAB PO SCH (10:51)
[2021-04-03] MEDS: HYDROcodone/APAP 5 MG/325 MG (LORTAB) TAB PO PRN (10:51)
[2021-04-03] MEDS: LOPERAMIDE 2 MG (IMODIUM) TABLET PO SCH ×3 (10:51→21:07)
[2021-04-03] MEDS: NYSTATIN CREAM (MYCOSTATIN) 30 GM TUBE TP SCH ×3 (10:51→21:07)
[2021-04-03] MEDS: MICONAZOLE 2% POWDER (DESENEX AF) 90 GM TOP SCH ×2 (10:52→21:07)
[2021-04-03] MEDS: HYPOCHLOROUS ACID/NaCl (VASHE) 250 ML IR SCH ×2 (10:53→23:11)
[2021-04-03] MEDS: LACTOBACILLUS ACIDOPHILUS (PROBIOTIC) CAPSULE PO SCH ×3 (10:53→17:15)
[2021-04-03] MEDS ORDERED: SERTRALINE 50 MG (ZOLOFT) TABLET PO NR (11:00)
[2021-04-03] MEDS ORDERED: VENlafaxine XR 75 MG (EFFEXOR XR) CAP PO NR (11:00)
--- NOTE | 2021-04-03 11:57 | Occupational Ther Daily Note ---
OT Current Status-Daily Note Subjective Pt. reports pain in bottom area during tsering care, but does not state pain level. Nursing giving medication at end of session. Appearance Pt. on side when OT enters. She states that she has just finished having BM. She is supposed to call nursing when done. Mental Status/Objective Patient Orientation: Person, Place, Time, Situation Attachments: IV ADL-Treatment Therapy Code Descriptions/Definitions Functional [place] Measure: 0=Not Assessed/NA 4=Minimal Assistance 1=Total Assistance 5=Supervision or Setup 2=Maximal Assistance 6=Modified [place] 3=Moderate Assistance 7=Complete IndependenceSCALE: Activities may be completed with or without assistive devices. 4-Hefdpslsrz-mafrwzl completes the activity by him/herself with no assistance from a helper. 5-Set-up or Clean-up Assistance-helper sets up or cleans up; patient completes activity. [place] assists only prior to or following the activity. 4-Supervision or Touching Assistance-helper provides verbal cues and/or touching/steadying and/or contact guard assistance as patient completes activity. Assistance may be provided throughout the activity or intermittently. 3-Partial/Moderate Assistance-helper does LESS THAN HALF the effort. [place] lifts, holds or supports trunk or limbs, but provides less than half the effort. 2-Substantial/Maximal Assistance-helper does MORE THAN HALF the effort. [place] lifts or holds trunk or limbs and provides more than half the effort. 9-Vfxrbgkdu-kteddy does ALL the effort. Patient does none of the effort to complete the activity. Or, the assistance of 2 or more helpers is required for the patient to complete the activity. If activity was not attempted, code reason: 7-Patient Refused. 9-Not Applicable-not attempted and the patient did not perform the activity before the current illness, exacerbation or injury. 10-Not Attempted due to Environmental Limitations-(lack of equipment, weather restraints, etc.). 88-Not Attempted due to Medical Conditions or Safety Concerns. Oral Hygiene (QC): 4 (SBA to brush teeth while side lying with HOB elevated.) Toileting Hygiene (QC): 1 Other Treatment Pt. incontinent of stool. Pt. requires min assist x 2 to roll side to side for adequate tsering care and bed change. Pt. able to assist self by using bed rails to help pull self to side. OT cleanses bottom. Nursing and OT adjust pt. toward HOB, and assist her to roll to other side. OT provides fresh gown and toothpast/brush. Pt. brushes teeth with SBA and increased time. Pt. becomes tearful when talking about her sons. OT and pt. talk about her current situation, and how important it is to process. Physician comes in to assess pt. Then nursing. All needs are met and pt. verbalizes that she is comfortable in current position. Pt. has call light and phone. Education OT Patient Education: Correct positioning, Modified ADL techniques, Progress toward Goal/Update tx plan, Purpose of tx/functional activities, Reviewed prec autions, Rehab process, Transfer techniques Teaching Recipient: Patient Teaching Methods: Demonstration Response to Teaching: Verbalize Understanding, Return Demonstration OT Metal Ceiling Builder Goals Chcf Goals Time Frame: Apr 30, 2021 Eating (QC): 5 Oral Hygiene (QC): 5 Toileting Hygiene (QC): 3 Shower/Bathe Self (QC): 3 Upper Body Dressing (QC): 4 Lower Body Dressing (QC): 3 On/Off Footwear (QC): 4 1=Demonstrate adherence to instructed precautions during ADL tasks. 2=Patient will verbalize/demonstrate understanding of assistive devices/modifications for ADL. 3=Patient will improve strength/tolerance for activity to enable patient to perform ADL's. OT Education/Plan Problem List/Assessment Assessment: Decreased Activ Tolerance, Dependent Transfers, Impaired Bed Mobility, Impaired Funct Balance, Impaired I ADL's, Impaired Self-Care Skills Discharge Recommendations Plan/Recommendations: Continue POC Therapy Discharge Recommendati: Post Acute OT Treatment Plan/Plan of Care Treatment,Training & Education: Yes Patient would benefit from OT for education, treatment and training to promote independence in ADL's, mobility, safety and/or upper extremity function for ADL's. Plan of Care: ADL Retraining, Functional Mobility, Group Exercise/Act as Ind, UE Funct Exercise/Act, W/C Management Training Treatment Duration: Apr 30, 2021 Frequency: 5 times per week Estimated Hrs Per Day: .25 hour per day Agreement: Yes Rehab Potential: Fair Time/GCodes Start Time: 10:30 Stop Time: 10:55 Total Time Billed (hr/min): 25 Billed Treatment Time 1, ADL x 2 FENG OATES OT Apr 03, 2021 11:57
--- NOTE | 2021-04-03 13:05 | Progress Note - Hospitalist ---
AI LEON 04/03/21 1305: Subjective HPI/CC On Admission Date Seen by Provider: Apr 03, 2021 Time Seen by Provider: 08:26 Subjective/Events-last exam Ms. Segal reports feeling the same today as yesterday with no new complaints. She still has continued pain from her bedsore. She says she is quite tired with decreased energy and a low appetite but she was able to eat some breakfast during our encounter. She does report that her diarrhea is still present but it is improving. Review of Systems General: No Chills; Fatigue Pulmonary: No Dyspnea, No Cough Cardiovascular: No: Chest Pain, Palpitations Gastrointestinal: Diarrhea; No: Nausea, Vomiting, Abdominal Pain, Constipation Genitourinary: Other (Catheter) Musculoskeletal: back pain Neurological: No: Weakness, Confusion Focused Exam Capillary Refill: Less Than 3 Seconds Peripheral Pulses: 2+ Radial Pulses (R), 2+ Radial Pulses (L) Objective Exam Vital Signs Vital Signs Date Time Temp Pulse Resp B/P (MAP) Pulse Ox O2 Delivery O2 Flow Rate FiO2 04/03/21 11:38 37.5 89 18 118/79 96 Room Air 03/31/21 23:00 Capillary Refill : Less Than 3 Seconds General Appearance: No Apparent Distress, Chronically ill HEENT: Moist Mucous Membranes; No Scleral Icterus (L), No Scleral Icterus (R) Neck: Normal Inspection, Non Tender; No Lymphadenopathy (L), No Lymphadenopathy (R) Respiratory: Chest Non Tender, Lungs Clear, Normal Breath Sounds, No Accessory Muscle Use, No Respiratory Distress Cardiovascular: Regular Rate, Rhythm, No Murmur, Normal Peripheral Pulses, Other (B/L LE edema) Gastrointestinal: Normal Bowel Sounds, Non Tender, Soft Extremity: Normal Capillary Refill, Normal Inspection, Non Tender, Pedal Edema Neurologic/Psychiatric: Alert, Oriented x3, No Motor/Sensory Deficits, Normal Mood/Affect Skin: Normal Color, Warm/Dry, Other (Sacral decubitus ulcer) Lymphatic: No Adenopathy (Head and neck) Results/Procedures Lab Laboratory Tests 04/03/21 04:12 Patient resulted labs reviewed. Assessment/Plan Assessment and Plan Assess & Plan/Chief Complaint Assessment Severe sepsis Diarrhea - Add probiotic - Better today but still present Sacral decubitus ulcer - Followed by wound care, wound VAC Hypokalemia - Better after replacement Anemia - Improved after transufsion Post Covid with deconditioning Plan Continue vancomycin and cefepime Work with PT and OT to help with deconditioning Consider inpatient rehab Monitor Hgb closely to watch for anemia Wound-vac with wound care f/u Added Questran for diarrhea HELENE EDWARDS DO 04/04/21 0613: Subjective Subjective/Events-last exam Pt doing alot better Participating in therapy Iron level ordered and given one iron infusion in the meantime Checking B12 level and will give one injection of B12 Feels very depressed so I increased Zoloft from 50 to 100 ans started Effexor of 75 Inpatient rehab indicated Loose stools are improved Review of Systems General: Fatigue Musculoskeletal: back pain Objective Exam General Appearance: No Apparent Distress, WD/WN, Chronically ill Respiratory: Lungs Clear, Normal Breath Sounds Cardiovascular: Regular Rate, Rhythm Neurologic/Psychiatric: Alert, Oriented x3, Depressed Affect Assessment/Plan Assessment and Plan Assess & Plan/Chief Complaint Increase Zoloft Add Effexor Inpatient rehab eval Supervisory-Addendum Brief Verification & Attestation Participated in pt care: history, MDM, physical Personally performed: exam, history, MDM, supervision of care Care discussed with: Medical Student Procedures: n/a Results interpretation: Verified all documentation Verification and Attestation of Medical Student E/M Service A medical student performed and documented this service in my presence. I reviewed and verified all information documented by the medical student and made modifications to such information, when appropriate. I personally performed the physical exam and medical decision making. Helene Edwards, Apr 04, 2021,06:12 AI LEON Apr 03, 2021 13:05 HELENE EDWARDS DO Apr 04, 2021 06:13
[2021-04-03] MEDS: VANCOMYCIN 1500 MG/NS 500 ML IVPB IV SCH ×2 (21:07)
[2021-04-04] MEDS: HYDROcodone/APAP 5 MG/325 MG (LORTAB) TAB PO PRN (02:05)
[2021-04-04 05:30] LABS: BASOPHILS % (AUTO) 1 % (0-10); EOSINOPHILS # (AUTO) 0.4 10^3/uL (0.0-0.3); EOSINOPHILS % (AUTO) 8 % (0-10); HEMATOCRIT 26 % (35-52); HEMOGLOBIN 7.8 g/dL (11.5-16.0); LYMPHOCYTES # (AUTO) 1.9 10^3/uL (1.0-4.0); LYMPHOCYTES % (AUTO) 36 % (12-44); MEAN CORPUSCULAR HEMOGLOBIN 30 pg (25-34); MEAN CORPUSCULAR HGB CONC 30 g/dL (32-36); MEAN CORPUSCULAR VOLUME 101 fL (80-99); MEAN PLATELET VOLUME 9.1 fL (9.0-12.2); MONOCYTES # (AUTO) 0.6 10^3/uL (0.0-1.0); MONOCYTES % (AUTO) 12 % (0-12); NEUTROPHILS # (AUTO) 2.3 10^3/uL (1.8-7.8); NEUTROPHILS % (AUTO) 44 % (42-75); PLATELET COUNT 246 10^3/uL (130-400); WHITE BLOOD COUNT 5.2 10^3/uL (4.3-11.0)
[2021-04-04 05:40] LABS: POTASSIUM 3.6 MMOL/L (3.6-5.0)
[2021-04-04 05:41] LABS: CALCIUM 7.5 MG/DL (8.5-10.1)
[2021-04-04 05:43] LABS: TOTAL PROTEIN 4.1 GM/DL (6.4-8.2)
[2021-04-04 05:44] LABS: BILIRUBIN,TOTAL 0.5 MG/DL (0.1-1.0)
[2021-04-04 05:46] LABS: CREATININE SERUM 0.65 MG/DL (0.60-1.30)
[2021-04-04 05:49] LABS: MAGNESIUM 1.5 MG/DL (1.6-2.4)
[2021-04-04] MEDS: POTASSIUM CL 10MEQ/50ML IVPB 50 ML IV SCH (05:51)
[2021-04-04] MEDS: KCL 20 MEQ TAB (K-DUR) PO SCH ×4 (05:51→21:17)
[2021-04-04] MEDS: MAGNESIUM 1 GM/100 ML IVPB 100 ML IV SCH ×3 (05:58→07:57)
[2021-04-04] MEDS: VENlafaxine XR 75 MG (EFFEXOR XR) CAP PO SCH (06:18)
[2021-04-04] MEDS: CEFEPIME INJECTION 2,000 MG in NS (IVPB) 50 ML IV SCH ×3 (06:18→21:08)
[2021-04-04] MEDS: LACTOBACILLUS Acidoph/Bulgar 1 GM (LACTINEX) PACKET PO SCH ×4 (06:18→21:08)
[2021-04-04] MEDS: CHOLESTYRAMINE 4 GM (QUESTRAN LITE, PREVALITE) PKT PO SCH ×4 (06:18→21:08)
[2021-04-04] MEDS: HYPOCHLOROUS ACID/NaCl (VASHE) 250 ML IR SCH ×2 (09:00→19:51)
[2021-04-04] MEDS: ASPIRIN 81 MG CHEW (CHILDREN'S ASA) PO SCH (09:54)
[2021-04-04] MEDS: LOPERAMIDE 2 MG (IMODIUM) TABLET PO SCH ×3 (09:54→21:09)
[2021-04-04] MEDS: LACTOBACILLUS ACIDOPHILUS (PROBIOTIC) CAPSULE PO SCH ×3 (09:54→17:31)
[2021-04-04] MEDS: SERTRALINE 50 MG (ZOLOFT) TABLET PO SCH (09:55)
[2021-04-04] MEDS: fluCOnazole (DIFLUCAN) 100 MG TAB PO SCH (09:55)
[2021-04-04] MEDS: MICONAZOLE 2% POWDER (DESENEX AF) 90 GM TOP SCH ×2 (09:56→21:08)
[2021-04-04] MEDS: NYSTATIN CREAM (MYCOSTATIN) 30 GM TUBE TP SCH ×3 (09:56→21:09)
--- NOTE | 2021-04-04 11:07 | Occupational Ther Daily Note ---
OT Current Status-Daily Note Subjective Pt reports pain in her buttocks secondary to wound, does not give numerical value. Appearance Returned to sidelying in bed, pillows placed for positioning. All needs within reach at end of session. Mental Status/Objective Attachments: Drains, Fernandez Catheter, IV ADL-Treatment Therapy Code Descriptions/Definitions Functional [place] Measure: 0=Not Assessed/NA 4=Minimal Assistance 1=Total Assistance 5=Supervision or Setup 2=Maximal Assistance 6=Modified [place] 3=Moderate Assistance 7=Complete IndependenceSCALE: Activities may be completed with or without assistive devices. 0-Pkrujfsupn-wbcoawd completes the activity by him/herself with no assistance from a helper. 5-Set-up or Clean-up Assistance-helper sets up or cleans up; patient completes activity. [place] assists only prior to or following the activity. 4-Supervision or Touching Assistance-helper provides verbal cues and/or touchin g/steadying and/or contact guard assistance as patient completes activity. Assistance may be provided throughout the activity or intermittently. 3-Partial/Moderate Assistance-helper does LESS THAN HALF the effort. [place] lifts, holds or supports trunk or limbs, but provides less than half the effort. 2-Substantial/Maximal Assistance-helper does MORE THAN HALF the effort. [place] lifts or holds trunk or limbs and provides more than half the effort. 7-Rzglvjdic-eqjfdk does ALL the effort. Patient does none of the effort to complete the activity. Or, the assistance of 2 or more helpers is required for the patient to complete the activity. If activity was not attempted, code reason: 7-Patient Refused. 9-Not Applicable-not attempted and the patient did not perform the activity before the current illness, exacerbation or injury. 10-Not Attempted due to Environmental Limitations-(lack of equipment, weather restraints, etc.). 88-Not Attempted due to Medical Conditions or Safety Concerns. Lower Body Dressing (QC): 1 On/Off Footwear: 1 Toileting Hygiene (QC): 1 Toilet Transfer (QC): 1 Pt sidelying in bed at OT arrival. Ageeable to sit EOB with goal to promote increased sitting balance/endurance. Mod A to come to edge of bed. Fair sitting balance, requires intermittent 1-2 UE support to maintain balance. Pt unable to tolerate more than 5 minutes and often leans back onto bed for rest before needing assist back into sitting. Education OT Patient Education: Correct positioning, Energy conservation, Modified ADL techniques, Progress toward Goal/Update tx plan, Purpose of tx/functional activities, Safety issues, Transfer techniques Teaching Recipient: Patient Teaching Methods: Discussion Response to Teaching: Return Demonstration OT Video Production Assistant Goals Video Production Assistant Goals Time Frame: Apr 30, 2021 Eating (QC): 5 Oral Hygiene (QC): 5 Toileting Hygiene (QC): 3 Shower/Bathe Self (QC): 3 Upper Body Dressing (QC): 4 Lower Body Dressing (QC): 3 On/Off Footwear (QC): 4 1=Demonstrate adherence to instructed precautions during ADL tasks. 2=Patient will verbalize/demonstrate understanding of assistive devices/modifications for ADL. 3=Patient will improve strength/tolerance for activity to enable patient to perform ADL's. OT Education/Plan Problem List/Assessment Assessment: Decreased Activ Tolerance, Decreased UE Strength, Impaired Bed Mobility, Impaired Coordination, Impaired Funct Balance, Impaired I ADL's, Impaired Self-Care Skills Discharge Recommendations Plan/Recommendations: Continue POC Therapy Discharge Recommendati: Post Acute OT Treatment Plan/Plan of Care Treatment,Training & Education: Yes Patient would benefit from OT for education, treatment and training to promote independence in ADL's, mobility, safety and/or upper extremity function for ADL's. Plan of Care: ADL Retraining, Functional Mobility, Group Exercise/Act as Ind, UE Funct Exercise/Act, W/C Management Training Treatment Duration: Apr 30, 2021 Frequency: 5 times per week Estimated Hrs Per Day: .25 hour per day Agreement: Yes Rehab Potential: Fair Time/GCodes Start Time: 10:24 Stop Time: 10:37 Total Time Billed (hr/min): 13 Billed Treatment Time 1 visit, Latoya Barreto OT Apr 04, 2021 11:07
--- NOTE | 2021-04-04 11:27 | Progress Note - Hospitalist ---
AI LEON 04/04/21 1127: Subjective HPI/CC On Admission Date Seen by Provider: Apr 04, 2021 Time Seen by Provider: 08:26 Sepsis Subjective/Events-last exam Ms. Segal reports feeling okay this morning. She was sleeping when I entered the room. She said that he had a headache last night and was not able to get to sleep until late but pain medicine helped. She reports that her diarrhea has been much improved with the addition of cholestyramine. She also reports that her sacral decubitus ulcer seems to be improving with the wound-vac and says it is less painful today. Review of Systems General: No Chills, No Fatigue HEENT: Head Aches Pulmonary: No Dyspnea, No Cough Cardiovascular: No: Chest Pain, Palpitations Gastrointestinal: No: Nausea, Vomiting, Abdominal Pain, Diarrhea, Constipation Neurological: No: Weakness, Confusion Focused Exam Capillary Refill: Less Than 3 Seconds Peripheral Pulses: 2+ Dorsalis Pedis (R), 2+ Left Dors-Pedis (L), 2+ Radial Pulses (R), 2+ Radial Pulses (L) Objective Exam Vital Signs Vital Signs Date Time Temp Pulse Resp B/P (MAP) Pulse Ox O2 Delivery O2 Flow Rate FiO2 04/04/21 08:00 36.7 84 16 126/77 90 Room Air 03/31/21 23:00 Capillary Refill : Less Than 3 Seconds General Appearance: No Apparent Distress, WD/WN HEENT: PERRL/EOMI, Moist Mucous Membranes; No Scleral Icterus (L), No Scleral Icterus (R) Neck: Normal Inspection, Non Tender; No Lymphadenopathy (L), No Lymphadenopathy (R) Respiratory: Chest Non Tender, Lungs Clear, Normal Breath Sounds, No Accessory Muscle Use, No Respiratory Distress Cardiovascular: Regular Rate, Rhythm, No Murmur, Normal Peripheral Pulses Gastrointestinal: Normal Bowel Sounds, Non Tender, Soft Extremity: Normal Capillary Refill, Normal Inspection, Non Tender, No Calf Tenderness, Pedal Edema (Slight, better than yesterday), Swelling (B/L LE edema. Improving) Neurologic/Psychiatric: Alert, Oriented x3, No Motor/Sensory Deficits, Normal Mood/Affect, quality assurance/r&d lab technician II-XII Norm as Tested Skin: Normal Color, Warm/Dry Lymphatic: No Adenopathy (Head and neck) Results/Procedures Lab Laboratory Tests 04/04/21 05:22 Patient resulted labs reviewed. Assessment/Plan Assessment and Plan Assess & Plan/Chief Complaint Assessment Severe sepsis Diarrhea - Add probiotic - Better today after the cholestyramine Sacral decubitus ulcer - Followed by wound care, wound VAC Hypokalemia - Better after replacement Anemia - Improved after transufsion Anxiety and Depression - Doubled dose of sertraline and added venlafaxine Post Covid with deconditioning Plan Continue vancomycin and cefepime Work with PT and OT to help with deconditioning Plan is to move to inpatient rehab pending insurance Monitor Hgb closely to watch for anemia Wound-vac with wound care f/u HELENE EDWARDS DO 04/05/21 0519: Subjective Subjective/Events-last exam Pt doing a lot better hgb 7.8 Loose stools are much improved with Questran Inpatient rehab evaluation is still pending with insurance Review of Systems General: Fatigue Pulmonary: Dyspnea Objective Exam General Appearance: No Apparent Distress, WD/WN, Chronically ill Respiratory: Lungs Clear, Normal Breath Sounds Cardiovascular: Regular Rate, Rhythm Neurologic/Psychiatric: Alert, Oriented x3, Depressed Affect Assessment/Plan Assessment and Plan Assess & Plan/Chief Complaint Supportive care Monitor closely Antibiotics Supervisory-Addendum Brief Verification & Attestation Participated in pt care: history, MDM, physical Personally performed: exam, history, MDM, supervision of care Care discussed with: Medical Student Procedures: n/a Results interpretation: Verified all documentation Verification and Attestation of Medical Student E/M Service A medical student performed and documented this service in my presence. I reviewed and verified all information documented by the medical student and made modifications to such information, when appropriate. I personally performed the physical exam and medical decision making. Helene Edwards, Apr 05, 2021,05:19 AI LEON Apr 04, 2021 11:27 HELENE EDWARDS DO Apr 05, 2021 05:19
[2021-04-04] MEDS: NS IV 500 ML 500 ML IV SCH (14:20)
--- NOTE | 2021-04-04 14:55 | Physical Therapy Progress Note ---
Therapy Progress Note Pt is laying Supine in bed visiting with family upon arrival. Pt declines PT today. Stating her Wound Vac. is leaking and doesn't want to move until its changed tomorrow. BUS DRIVER/MONITOR explained benefits of PT but pt still declined tx. PT will try pt again tomorrow for tx. SUE VOGT BUS DRIVER/MONITOR Apr 04, 2021 14:55
--- NOTE | 2021-04-04 18:24 | Wound Care Assessment ---
Wound Care Assessment Date Seen by Provider: Apr 04, 2021 Time Seen by Provider: 18:24 Chief Complaint Stage 4 Sacral Pressure Ulcer HPI Shanita is seen in follow up today. Since my last evaluation Shanita was placed on broad spectrum antibiotics to cover for pseudomonal infection (also with enterobacter in urine). Wound, urine and bone cultures all with pseudomonas. On my initial exam, patient was noted to have an area of bone flaking off which was obtained for bone biopsy and culture. The biopsy is still pending. Patient's bone otherwise did not seem obviously necrotic. I did discuss this today with surgical staff (wound vac ordered per their service). They also did not note necrotic bone. Traditional wound vac not indicated in acute untreated osteomyelitis but as bone did not appear necrotic, wound consider veraflow with Vashe a good option for Shanita's case. Dr. Morse is in agreement. We will proceed and ask for rep's presence and assistance in procuring Vashe for this placement. We may have difficulty establishing an adequate seal due to the location of this ulcer. Continued antibiotics targeted to known organisms obviously advisable. Shanita has plans to move to our inpatient rehab facility. As veraflow is only available while in hospital setting, I agree that inpatient rehab wound be a great idea for her wound healing as well. Shanita appears greatly improved today. Her wound healing will continue to be complicated by underlying diabetes, generalized weakness and need for off loading, persistent anemia and protein energy malnutrition. Past Medical History: Admits Diabetes Type II, Admits Heart Disease (Recent episode of V Tach in past records) Smoking Status: Unknown if Ever Smoked Exam Vital Signs Date Time Temp Pulse Resp B/P (MAP) Pulse Ox O2 Delivery O2 Flow Rate FiO2 04/04/21 16:22 36.4 97 18 133/83 97 Room Air 03/31/21 23:00 Capillary Refill : Less Than 3 Seconds General Appearance: WD/WN, no apparent distress, obese HEENT: PERRL/EOMI Respiratory: no respiratory distress, no accessory muscle use Results Laboratory Tests 04/04/21 05:22: White Blood Count 5.2, Red Blood Count 2.57L, Hemoglobin 7.8L, Hematocrit 26L, Mean Corpuscular Volume 101H, Mean Corpuscular Hemoglobin 30, Mean Corpuscular Hemoglobin Concent 30L, Red Cell Distribution Width 16.1H, Platelet Count 246, Mean Platelet Volume 9.1, Immature Granulocyte % (Auto) 0, Neutrophils (%) (Auto) 44, Lymphocytes (%) (Auto) 36, Monocytes (%) (Auto) 12, Eosinophils (%) (Auto) 8, Basophils (%) (Auto) 1, Neutrophils # (Auto) 2.3, Lymphocytes # (Auto) 1.9, Monocytes # (Auto) 0.6, Eosinophils # (Auto) 0.4H, Basophils # (Auto) 0.0, Immature Granulocyte # (Auto) 0.0, Sodium Level 146H, Potassium Level 3.6, Chloride Level 114H, Carbon Dioxide Level 21, Anion Gap 11, Blood Urea Nitrogen 5L, Creatinine 0.65, Estimat Glomerular Filtration Rate 102, BUN/Creatinine Ratio 8, Glucose Level 80, Calcium Level 7.5L, Corrected Calcium 8.3L, Magnesium Level 1.5L, Total Bilirubin 0.5, Aspartate Amino Transf (AST/SGOT) 17, Alanine Aminotransferase (ALT/SGPT) 17, Alkaline Phosphatase 61, Total Protein 4.1L, Albumin 3.0L Microbiology 03/31/21 C. difficile GDH Antigen & Toxins - Final, Complete 03/29/21 Gram Stain - Final, Complete 03/29/21 Surgical Culture - Final, Complete Pseudomonas aeruginosa 03/29/21 Catheter Tip Culture - Final, Complete Staphylococcus epidermidis 03/29/21 Urine Culture - Final, Complete Pseudomonas aeruginosa Enterobacter cloacae complex 03/29/21 MRSA Screen - Final, Complete MRSA not isolated Assessment/Plan/Dx A: 1. Stage 4 Pressure Ulcer 2. Exposed bone (presumed osteomyelitis) 3. PEM P: 1. Follow up results of bone biopsy 2. Transition to veraflow wound vac with Vashe when available 3. Continued targeted antibiotic therapy 4. I do plan to be present when wound vac is next changed to evaluate adequacy of wound bed and make certain bone does not appear grossly necrotic. If significant necrosis, will discuss again with surgery. 5. Adequate glycemic control 6. Increased protein intake 7. Agree that inpatient rehab would be beneficial for both wound healing as well as improvement in generalized weakness ANKIT BERNABE MD Apr 04, 2021 18:24
[2021-04-04] MEDS ORDERED: TROUGH ORDER-PHARMACY XX NR (19:00)
[2021-04-04] MEDS: VANCOMYCIN 1500 MG/NS 500 ML IVPB IV SCH ×2 (21:07)
[2021-04-05 03:49] LABS: BASOPHILS % (AUTO) 1 % (0-10); EOSINOPHILS # (AUTO) 0.4 10^3/uL (0.0-0.3); EOSINOPHILS % (AUTO) 7 % (0-10); HEMATOCRIT 28 % (35-52); HEMOGLOBIN 8.5 g/dL (11.5-16.0); LYMPHOCYTES # (AUTO) 2.3 10^3/uL (1.0-4.0); LYMPHOCYTES % (AUTO) 38 % (12-44); MEAN CORPUSCULAR HEMOGLOBIN 31 pg (25-34); MEAN CORPUSCULAR HGB CONC 31 g/dL (32-36); MEAN CORPUSCULAR VOLUME 100 fL (80-99); MEAN PLATELET VOLUME 8.9 fL (9.0-12.2); MONOCYTES # (AUTO) 0.6 10^3/uL (0.0-1.0); MONOCYTES % (AUTO) 10 % (0-12); NEUTROPHILS # (AUTO) 2.7 10^3/uL (1.8-7.8); NEUTROPHILS % (AUTO) 44 % (42-75); PLATELET COUNT 262 10^3/uL (130-400); WHITE BLOOD COUNT 6.1 10^3/uL (4.3-11.0)
[2021-04-05 03:58] LABS: POTASSIUM 3.7 MMOL/L (3.6-5.0)
[2021-04-05 03:59] LABS: CALCIUM 7.6 MG/DL (8.5-10.1)
[2021-04-05 04:00] LABS: TOTAL PROTEIN 4.3 GM/DL (6.4-8.2)
[2021-04-05 04:02] LABS: BILIRUBIN,TOTAL 0.5 MG/DL (0.1-1.0)
[2021-04-05 04:04] LABS: CREATININE SERUM 0.64 MG/DL (0.60-1.30)
[2021-04-05 04:07] LABS: MAGNESIUM 1.9 MG/DL (1.6-2.4)
[2021-04-05] MEDS: POTASSIUM CL 10MEQ/50ML IVPB 50 ML IV SCH (05:57)
[2021-04-05] MEDS: KCL 20 MEQ TAB (K-DUR) PO SCH ×3 (05:57→21:35)
[2021-04-05] MEDS: NS IV 500 ML 500 ML IV SCH (06:01)
[2021-04-05] MEDS: MAGNESIUM 1 GM/100 ML IVPB 100 ML IV SCH (06:04)
[2021-04-05] MEDS: LACTOBACILLUS Acidoph/Bulgar 1 GM (LACTINEX) PACKET PO SCH ×4 (06:23→21:34)
[2021-04-05] MEDS: VENlafaxine XR 75 MG (EFFEXOR XR) CAP PO SCH (06:23)
[2021-04-05] MEDS: CEFEPIME INJECTION 2,000 MG in NS (IVPB) 50 ML IV SCH ×3 (06:23→21:36)
[2021-04-05] MEDS: CHOLESTYRAMINE 4 GM (QUESTRAN LITE, PREVALITE) PKT PO SCH ×4 (06:24→21:35)
[2021-04-05] MEDS ORDERED: IRON SUCROSE 200 MG/10 ML (VENOFER) VIAL IV ONE (07:00)
[2021-04-05] MEDS: SERTRALINE 50 MG (ZOLOFT) TABLET PO SCH (08:18)
[2021-04-05] MEDS: LOPERAMIDE 2 MG (IMODIUM) TABLET PO SCH ×3 (08:18→21:34)
[2021-04-05] MEDS: ASPIRIN 81 MG CHEW (CHILDREN'S ASA) PO SCH (08:18)
[2021-04-05] MEDS: LACTOBACILLUS ACIDOPHILUS (PROBIOTIC) CAPSULE PO SCH ×3 (08:18→17:18)
[2021-04-05] MEDS: MICONAZOLE 2% POWDER (DESENEX AF) 90 GM TOP SCH ×2 (08:18→21:35)
[2021-04-05] MEDS: NYSTATIN CREAM (MYCOSTATIN) 30 GM TUBE TP SCH ×3 (08:19→21:35)
[2021-04-05] MEDS: fluCOnazole (DIFLUCAN) 100 MG TAB PO SCH (08:25)
[2021-04-05] MEDS: HYPOCHLOROUS ACID/NaCl (VASHE) 250 ML IR SCH ×2 (08:25→21:40)
--- NOTE | 2021-04-05 14:09 | Physical Therapy Daily Note ---
PT Daily Note-Current Subjective Patient agrees to PT. She states she is very motivated to transfer to rehab. Mental Status Patient Orientation: Normal For Age Attachments: Fernandez Catheter Transfers SCALE: Activities may be completed with or without assistive devices. 0-Zfcqsqdmta-irogkqj completes the activity by him/herself with no assistance from a helper. 5-Set-up or Clean-up Assistance-helper sets up or cleans up; patient completes activity. [place] assists only prior to or following the activity. 4-Supervision or Touching Assistance-helper provides verbal cues and/or touching/steadying and/or contact guard assistance as patient completes activity. Assistance may be provided throughout the activity or intermittently. 3-Partial/Moderate Assistance-helper does LESS THAN HALF the effort. [place] lifts, holds or supports trunk or limbs, but provides less than half the effort. 2-Substantial/Maximal Assistance-helper does MORE THAN HALF the effort. [place] lifts or holds trunk or limbs and provides more than half the effort. 8-Sxyepxcng-qymzuj does ALL the effort. Patient does none of the effort to complete the activity. Or, the assistance of 2 or more helpers is required for the patient to complete the activity. If activity was not attempted, code reason: 7-Patient Refused. 9-Not Applicable-not attempted and the patient did not perform the activity before the current illness, exacerbation or injury. 10-Not Attempted due to Environmental Limitations-(lack of equipment, weather restraints, etc.). 88-Not Attempted due to Medical Conditions or Safety Concerns. Sit to Lying (QC): 3 Lying to Sitting/Side of Bed(Q: 4 patient sat EOB x 20 min Exercises Supine Ex: Ankle pumps (stretching), Quad Set, Heel Slides, Straight leg raise Supine Reps: 12 Seated Therapy Exercises: Ankle pumps (stretching), Long arc quads Assessment Patient improving with treatment plan and will transfer to ARU in a.m. Increase activity as tolerated by patient. PT Fpc Goals Corn Husk Baler Goals PT [place] Baler Goals Time Frame: Apr 14, 2021 Roll Left & Right (QC): 4 Sit to Lying (QC): 3 Lying-Sitting on Side/Bed(QC): 3 Sit to Stand (QC): 1 Chair/Riy-gy-Loawe Xfer(QC): 1 PT Plan Treatment/Plan Treatment Plan: Continue Plan of Care Treatment Plan: Bed Mobility, Concurrent Therapy, Education, Functional Act ivity [place], Functional Strength, Gait, Safety, Therapeutic Exercise, Transfers Treatment Duration: Apr 14, 2021 Frequency: 6 times per week Estimated Hrs Per Day: .25 hour per day Patient and/or Family Agrees t: Yes Time/GCodes Time In: 1305 Time Out: 1328 Total Billed Treatment Time: 23 Total Billed Treatment 1 visit EX x 2 23min LENA TALAMANTES PT Apr 05, 2021 14:08
--- NOTE | 2021-04-05 14:40 | Occupational Ther Daily Note ---
OT Current Status-Daily Note Subjective Pt alert, lying in bed. Pt agrees to therapy. No c/o pain. Mental Status/Objective Patient Orientation: Person, Place, Time, Situation Attachments: Drains (wound vac), Fernandez Catheter, IV ADL-Treatment Pt able to complete oral care independently after supplies gathered while supine in bed. Pt demonstrated WFL for B UE's with reaching for grooming and oral c are. Pt does demonstrate decreased B hand strength and will need therapy hand sponge. After session, pt lying in bed with call light/phone in reach. All needs met in room. Therapy Code Descriptions/Definitions Functional [place] Measure: 0=Not Assessed/NA 4=Minimal Assistance 1=Total Assistance 5=Supervision or Setup 2=Maximal Assistance 6=Modified [place] 3=Moderate Assistance 7=Complete IndependenceSCALE: Activities may be completed with or without assistive devices. 1-Rwitdopifa-kgwlnge completes the activity by him/herself with no assistance from a helper. 5-Set-up or Clean-up Assistance-helper sets up or cleans up; patient completes activity. [place] assists only prior to or following the activity. 4-Supervision or Touching Assistance-helper provides verbal cues and/or touching/steadying and/or contact guard assistance as patient completes activity. Assistance may be provided throughout the activity or intermittently. 3-Partial/Moderate Assistance-helper does LESS THAN HALF the effort. [place] lifts, holds or supports trunk or limbs, but provides less than half the effort. 2-Substantial/Maximal Assistance-helper does MORE THAN HALF the effort. [place] lifts or holds trunk or limbs and provides more than half the effort. 4-Wsxgjsona-uxgeoh does ALL the effort. Patient does none of the effort to complete the activity. Or, the assistance of 2 or more helpers is required for the patient to complete the activity. If activity was not attempted, code reason: 7-Patient Refused. 9-Not Applicable-not attempted and the patient did not perform the activity before the current illness, exacerbation or injury. 10-Not Attempted due to Environmental Limitations-(lack of equipment, weather restraints, etc.). 88-Not Attempted due to Medical Conditions or Safety Concerns. Oral Hygiene (QC): 5 OT Container Repairer Goals Container Repairer Goals Time Frame: Apr 30, 2021 Eating (QC): 5 Oral Hygiene (QC): 5 Toileting Hygiene (QC): 3 Shower/Bathe Self (QC): 3 Upper Body Dressing (QC): 4 Lower Body Dressing (QC): 3 On/Off Footwear (QC): 4 1=Demonstrate adherence to instructed precautions during ADL tasks. 2=Patient will verbalize/demonstrate understanding of assistive devices/modifications for ADL. 3=Patient will improve strength/tolerance for activity to enable patient to perform ADL's. OT Education/Plan Problem List/Assessment Assessment: Decreased Activ Tolerance, Decreased UE Strength, Impaired Self- Care Skills Discharge Recommendations Plan/Recommendations: Continue POC Treatment Plan/Plan of Care Patient would benefit from OT for education, treatment and training to promote independence in ADL's, mobility, safety and/or upper extremity function for ADL's. Plan of Care: ADL Retraining, Functional Mobility, Group Exercise/Act as Ind, UE Funct Exercise/Act, W/C Management Training Treatment Duration: Apr 30, 2021 Frequency: 5 times per week Estimated Hrs Per Day: .25 hour per day Agreement: Yes Rehab Potential: Fair Time/GCodes Start Time: 14:00 Stop Time: 14:15 Total Time Billed (hr/min): 15 Billed Treatment Time 1 visit-ADL 1 (15 min) DONNIE HYATT Apr 05, 2021 14:40
--- NOTE | 2021-04-05 15:05 | Progress Note - Hospitalist ---
AI LEON 04/05/21 1505: Subjective HPI/CC On Admission Date Seen by Provider: Apr 05, 2021 Time Seen by Provider: 09:01 Sepsis Subjective/Events-last exam Ms. Segal reports that her wound-vac has been leaking overnight and her sacral decubitus ulcer has been uncomfortable. She did not work with PT yesterday due to the leaking. 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 She has been approved for inpatient rehab pending bed availability and she was very excited about that. She had no other complaints besides her ulcer. Review of Systems General: No Chills, No Fatigue HEENT: No Head Aches Pulmonary: No Dyspnea, No Cough Cardiovascular: No: Chest Pain, Palpitations Gastrointestinal: No: Nausea, Vomiting, Abdominal Pain Musculoskeletal: back pain Neurological: No: Weakness, Confusion Focused Exam Capillary Refill: Less Than 3 Seconds Peripheral Pulses: 2+ Radial Pulses (R), 2+ Radial Pulses (L) Objective Exam Vital Signs Vital Signs Date Time Temp Pulse Resp B/P (MAP) Pulse Ox O2 Delivery O2 Flow Rate FiO2 04/05/21 12:00 36.1 91 20 152/83 99 Room Air 03/31/21 23:00 Capillary Refill : Less Than 3 Seconds General Appearance: No Apparent Distress, WD/WN HEENT: PERRL/EOMI, Moist Mucous Membranes; No Scleral Icterus (L), No Scleral Icterus (R) Neck: Normal Inspection, Non Tender; No Lymphadenopathy (L), No Lymphadenopathy (R) Respiratory: Chest Non Tender, Lungs Clear, Normal Breath Sounds, No Accessory Muscle Use, No Respiratory Distress Cardiovascular: Regular Rate, Rhythm, No Murmur, Normal Peripheral Pulses Gastrointestinal: Normal Bowel Sounds, Non Tender, Soft Extremity: Normal Capillary Refill, Normal Inspection, Non Tender, Pedal Edema (Slight, less than yesterday) Neurologic/Psychiatric: Alert, Oriented x3, No Motor/Sensory Deficits, Normal 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 Assessment/Plan Assessment and Plan Assess & Plan/Chief Complaint Assessment Severe sepsis Diarrhea - Add probiotic - Better after the cholestyramine Sacral decubitus ulcer - Followed by wound care, wound VAC Hypokalemia - Better after replacement Anemia - Improved after transufsion Anxiety and Depression - Doubled dose of sertraline and added venlafaxine - Patient responding well Post Covid with deconditioning Plan Continue vancomycin and cefepime Work with PT and OT to help with deconditioning Plan is to move to inpatient rehab pending bed availability Monitor Hgb closely to watch for anemia Wound-vac with wound care f/u HELENE EDWARDS DO 04/06/21 0550: Subjective Subjective/Events-last exam Ready for inpatient rehab Wound care will continue IV antibiotics discussed Supervisory-Addendum Brief Verification & Attestation Participated in pt care: history, MDM, physical Personally performed: exam, history, MDM, supervision of care Care discussed with: Medical Student Procedures: n/a Results interpretation: Verified all documentation Verification and Attestation of Medical Student E/M Service A medical student performed and documented this service in my presence. I reviewed and verified all information documented by the medical student and made modifications to such information, when appropriate. I personally performed the physical exam and medical decision making. Helene Edwards, Apr 06, 2021,05:49 AI LEON Apr 05, 2021 15:05 HELENE EDWARDS DO Apr 06, 2021 05:50
[2021-04-05] MEDS ORDERED: MELATONIN 3 MG TABLET PO PRN (22:00)
[2021-04-06] MEDS: NS IV 500 ML 500 ML IV SCH (00:32)
[2021-04-06] MEDS: LACTOBACILLUS Acidoph/Bulgar 1 GM (LACTINEX) PACKET PO SCH (05:29)
[2021-04-06] MEDS: CHOLESTYRAMINE 4 GM (QUESTRAN LITE, PREVALITE) PKT PO SCH (05:29)
[2021-04-06] MEDS: KCL 20 MEQ TAB (K-DUR) PO SCH (05:29)
[2021-04-06] MEDS ORDERED: MICONAZOLE NITRATE 2% CRM 30 GM TP PRN (06:15)
[2021-04-06] MEDS ORDERED: RT-ALBUTEROL SULF 2.5 MG/3 ML PRE-MIX VIAL IH PRN (06:15)
[2021-04-06] MEDS ORDERED: ONDANSETRON 4 MG (ZOFRAN) ORAL DISSOLVE TAB PO PRN (06:15)
[2021-04-06] MEDS ORDERED: VITAMIN D2 1.25 MG (50,000 UNITS) CAP PO SCH (06:15)
[2021-04-06] MEDS ORDERED: BALSAM PERU TP SCH (06:15)
[2021-04-06] MEDS ORDERED: ACETAMINOPHEN 325 MG TABLET PO PRN (06:15)
[2021-04-06] MEDS ORDERED: CASTOR OIL TP SCH (06:15)
[2021-04-06] MEDS: CEFEPIME INJECTION 2,000 MG in NS (IVPB) 50 ML IV SCH (06:34)
[2021-04-06] MEDS: VENlafaxine XR 75 MG (EFFEXOR XR) CAP PO SCH (06:44)
[2021-04-06 06:45] LABS: BASOPHILS # (AUTO) 0.1 10^3/uL (0.0-0.1); BASOPHILS % (AUTO) 1 % (0-10); EOSINOPHILS # (AUTO) 0.5 10^3/uL (0.0-0.3); EOSINOPHILS % (AUTO) 7 % (0-10); HEMATOCRIT 28 % (35-52); HEMOGLOBIN 8.6 g/dL (11.5-16.0); LYMPHOCYTES # (AUTO) 2.6 10^3/uL (1.0-4.0); LYMPHOCYTES % (AUTO) 39 % (12-44); MEAN CORPUSCULAR HEMOGLOBIN 31 pg (25-34); MEAN CORPUSCULAR HGB CONC 31 g/dL (32-36); MEAN CORPUSCULAR VOLUME 100 fL (80-99); MEAN PLATELET VOLUME 9.1 fL (9.0-12.2); MONOCYTES # (AUTO) 0.7 10^3/uL (0.0-1.0); MONOCYTES % (AUTO) 10 % (0-12); NEUTROPHILS # (AUTO) 2.9 10^3/uL (1.8-7.8); NEUTROPHILS % (AUTO) 43 % (42-75); PLATELET COUNT 258 10^3/uL (130-400); WHITE BLOOD COUNT 6.7 10^3/uL (4.3-11.0)
[2021-04-06 07:08] LABS: ALBUMIN 2.9 GM/DL (3.2-4.5); BILIRUBIN,TOTAL 0.5 MG/DL (0.1-1.0); CREATININE SERUM 0.64 MG/DL (0.60-1.30); MAGNESIUM 1.7 MG/DL (1.6-2.4); POTASSIUM 3.2 MMOL/L (3.6-5.0); TOTAL PROTEIN 4.6 GM/DL (6.4-8.2)
[2021-04-06] MEDS: POTASSIUM CL 10MEQ/50ML IVPB 50 ML IV SCH (07:29)
[2021-04-06] MEDS: SERTRALINE 50 MG (ZOLOFT) TABLET PO SCH (08:50)
[2021-04-06] MEDS: LACTOBACILLUS ACIDOPHILUS (PROBIOTIC) CAPSULE PO SCH (08:50)
[2021-04-06] MEDS: ASPIRIN 81 MG CHEW (CHILDREN'S ASA) PO SCH (08:51)
[2021-04-06] MEDS: LOPERAMIDE 2 MG (IMODIUM) TABLET PO SCH (08:51)
[2021-04-06] MEDS: fluCOnazole (DIFLUCAN) 100 MG TAB PO SCH (08:51)
[2021-04-06] MEDS ORDERED: LACTOBACILLUS ACIDOPHILUS (PROBIOTIC) CAPSULE PO SCH (09:00)
[2021-04-06] MEDS ORDERED: LOPERAMIDE 2 MG (IMODIUM) TABLET PO SCH (09:00)
[2021-04-06] MEDS ORDERED: APIXABAN 5 MG (ELIQUIS) TABLET PO SCH (09:00)
[2021-04-06] MEDS ORDERED: HYDROcodone/APAP 7.5 MG/325 MG (LORTAB, LORCET PLUS) TABLET PO SCH (09:00)
[2021-04-06] MEDS ORDERED: FERROUS SULF 325 MG (IRON) TAB PO SCH (09:00)
[2021-04-06] MEDS ORDERED: OXYBUTYNIN (DITROPAN) 5 MG TAB PO SCH (09:00)
[2021-04-06] MEDS ORDERED: ATENOLOL 25 MG (TENORMIN) TAB PO SCH (09:00)
[2021-04-06] MEDS ORDERED: MESALAMINE 250 MG (PENTASA) CAP PO SCH (09:00)
[2021-04-06] MEDS ORDERED: MULTIVIT W/MINERALS TAB (THERAGRAN M) PO SCH (09:00)
[2021-04-06] MEDS ORDERED: COLLAGENASE 30 GM (SANTYL) TUBE TP SCH (09:00)
[2021-04-06] MEDS: NYSTATIN CREAM (MYCOSTATIN) 30 GM TUBE TP SCH (09:01)
[2021-04-06] MEDS: MICONAZOLE 2% POWDER (DESENEX AF) 90 GM TOP SCH (09:03)
[2021-04-06] MEDS: MAGNESIUM 1 GM/100 ML IVPB 100 ML IV SCH (09:04)
--- NOTE | 2021-04-06 12:01 | Discharge Summary ---
Diagnosis/Chief Complaint Date of Admission Mar 28, 2021 at 12:52 Date of Discharge Apr 06, 2021 at 09:27 Discharge Date: Apr 06, 2021 Discharge Diagnosis Assessment Severe sepsis Diarrhea - Add probiotic - Better after the cholestyramine Sacral decubitus ulcer - Followed by wound care, wound VAC Hypokalemia - Better after replacement Anemia - Improved after transufsion Anxiety and Depression - Doubled dose of sertraline and added venlafaxine - Patient responding well Post Covid with deconditioning Discharge Summary Discharge Physical Examination Allergies: Coded Allergies: No Known Drug Allergies (Unverified , 03/28/21) Vitals & I&Os Vital Signs Date Time Temp Pulse Resp B/P (MAP) Pulse Ox O2 Delivery O2 Flow Rate FiO2 04/06/21 08:10 36.4 80 20 115/75 95 Room Air General Appearance: Alert, Oriented X3, Cooperative Respiratory: Clear to Auscultation Cardiovascular: Regular Rate Hospital Course Was the Problem List Reviewed?: Yes Ms. Segal is a 36 y/o female with a PMHx of post-COVID syndrome. She has had a complicated course after COVID in November which required intubation. She was at [facility] in [place], [place], [facility] in [place], [place], and [facility]. She presented to the ED on 28 March from [facility] with reports of nausea, vomiting, diarrhea, and hypotension. She reported her symptoms began on 24 March. She is being seen by wound care for a sacral decubitius ulcer that became infected and caused her sepsis. Her ulcer is being treated with a wound-vac. She has been chronically ill since her bout with COVID. She has slowly progressed and has been seen for her ulcer throughout this week in the hospital. She is deconditioned from COVID but has wanted to move to inpatient rehab at [facility]. Throughout the week her strength and spirits have been improving and today she was moved from 4th floor down to inpatient rehab. She is a good candidate for inpatient rehab and continued to make progress throughout the week. She is excited to begin. AI LEON S Labs (last 24 hrs) Laboratory Tests 03/28/21 10:37: White Blood Count 7.7, Red Blood Count 3.19L, Hemoglobin 9.5L, Hematocrit 32L, Mean Corpuscular Volume 99, Mean Corpuscular Hemoglobin 30, Mean Corpuscular Hemoglobin Concent 30L, Red Cell Distribution Width 15.4H, Platelet Count 410H, Mean Platelet Volume 8.7L, Immature Granulocyte % (Auto) 0, Neutrophils (%) (Auto) 66, Lymphocytes (%) (Auto) 23, Monocytes (%) (Auto) 8, Eosinophils (%) (Auto) 2, Basophils (%) (Auto) 1, Neutrophils # (Auto) 5.1, Lymphocytes # (Auto) 1.8, Monocytes # (Auto) 0.6, Eosinophils # (Auto) 0.2, Basophils # (Auto) 0.1, Immature Granulocyte # (Auto) 0.0, Prothrombin Time 17.7H, INR Comment 1.4, Activated Partial Thromboplast Time 30, Sodium Level 142, Potassium Level 3.5L, Chloride Level 108H, Carbon Dioxide Level 19L, Anion Gap 15H, Blood Urea Nitrogen 26H, Creatinine 0.81, Estimat Glomerular Filtration Rate 79, BUN/Creatinine Ratio 32, Glucose Level 99, Lactic Acid Level 3.85*H, Calcium Level 7.7L, Corrected Calcium 9.3, Total Bilirubin 0.2, Aspartate Amino Transf (AST/SGOT) 22, Alanine Aminotransferase (ALT/SGPT) 19, Alkaline Phosphatase 132, Total Protein 4.3L, Albumin 2.0L, Procalcitonin 0.07 03/28/21 12:08: Urine Color YELLOW, Urine Clarity SL CLOUDY, Urine pH 6.0, Urine Specific [place] >=1.030, Urine Protein 2+H, Urine Glucose (UA) TRACEH, Urine Ketones NEGATIVE, Urine Nitrite POSITIVEH, Urine Bilirubin 1+H, Urine Urobilinogen 1.0, Urine Leukocyte Esterase 1+H, Urine RBC (Auto) 3+H, Urine RBC 25-50H, Urine WBC 50-100H, Urine Squamous Epithelial Cells NONE, Urine Crystals PRESENTH, Urine Calcium Oxalate Crystals RAREH, Urine Bacteria LARGEH, Urine Casts NONE, Urine Mucus NEGATIVE, Urine Culture Indicated CULTURE PENDING 03/28/21 12:37: Lactic Acid Level 3.08*H 03/28/21 12:52: Lab Scanned Report Referred Lab Report 03/28/21 15:09: Lactic Acid Level 1.92 03/29/21 02:05: Urine Color YELLOW, Urine Clarity SL CLOUDY, Urine pH 7.0, Urine Specific [place] 1.010L, Urine Protein 1+H, Urine Glucose (UA) NEGATIVE, Urine Ketones NEGATIVE, Urine Nitrite POSITIVEH, Urine Bilirubin NEGATIVE, Urine Urobilinogen 0.2, Urine Leukocyte Esterase 3+H, Urine RBC (Auto) 2+H, Urine RBC 5-10H, Urine WBC 25-50H, Urine Squamous Epithelial Cells 0-2, Urine Crystals NONE, Urine Bacteria MODERATEH, Urine Casts NONE, Urine Mucus NEGATIVE, Urine Culture Indicated YES 03/29/21 05:35: White Blood Count 5.1, Red Blood Count 2.50L, Hemoglobin 7.4#L, Hematocrit 25L, Mean Corpuscular Volume 100H, Mean Corpuscular Hemoglobin 30, Mean Corpuscular Hemoglobin Concent 30L, Red Cell Distribution Width 15.7H, Platelet Count 302, Mean Platelet Volume 8.8L, Immature Granulocyte % (Auto) 0, Neutrophils (%) (Auto) 73, Lymphocytes (%) (Auto) 14, Monocytes (%) (Auto) 8, Eosinophils (%) (Auto) 5, Basophils (%) (Auto) 0, Neutrophils # (Auto) 3.7, Lymphocytes # (Auto) 0.7L, Monocytes # (Auto) 0.4, Eosinophils # (Auto) 0.2, Basophils # (Auto) 0.0, Immature Granulocyte # (Auto) 0.0, Sodium Level 141, Potassium Level 3.4L, Chlo ride Level 110H, Carbon Dioxide Level 21, Anion Gap 10, Blood Urea Nitrogen 15, Creatinine 0.61, Estimat Glomerular Filtration Rate 110, BUN/Creatinine Ratio 25, Glucose Level 75, Calcium Level 6.8L, Corrected Calcium 8.8, Phosphorus Level 4.2, Magnesium Level 1.2L, Total Bilirubin 0.2, Aspartate Amino Transf (AST/SGOT) 17, Alanine Aminotransferase (ALT/SGPT) 10, Alkaline Phosphatase 100, Total Protein 3.3L, Albumin 1.5#L 03/29/21 16:30: 03/30/21 08:50: White Blood Count 10.7, Red Blood Count 3.22L, Hemoglobin 9.7#L, Hematocrit 32L, Mean Corpuscular Volume 100H, Mean Corpuscular Hemoglobin 30, Mean Corpuscular Hemoglobin Concent 30L, Red Cell Distribution Width 15.9H, Platelet Count 403H, Mean Platelet Volume 8.6L, Immature Granulocyte % (Auto) 1, Neutrophils (%) (Auto) 78H, Lymphocytes (%) (Auto) 12, Monocytes (%) (Auto) 8, Eosinophils (%) (Auto) 1, Basophils (%) (Auto) 0, Neutrophils # (Auto) 8.4H, Lymphocytes # (Auto) 1.3, Monocytes # (Auto) 0.8, Eosinophils # (Auto) 0.1, Basophils # (Auto) 0.0, Immature Granulocyte # (Auto) 0.1, Sodium Level 143, Potassium Level 4.4, Chloride Level 114H, Carbon Dioxide Level 16L, Anion Gap 13, Blood Urea Nitrogen 9, Creatinine 0.66, Estimat Glomerular Filtration Rate 100, BUN/Creatinine Ratio 14, Glucose Level 103, Calcium Level 7.1L, Corrected Calcium 8.9, Phosphorus Level 4.0, Magnesium Level 1.8, Total Bilirubin 0.3, Aspartate Amino Transf (AST/SGOT) 27, Alanine Aminotransferase (ALT/SGPT) 18, Alkaline Phosphatase 114, Total Protein 4.0L, Albumin 1.7L 03/31/21 07:50: White Blood Count 4.1L, Red Blood Count 2.19L, Hemoglobin 6.5#*L, Hematocrit 22L , Mean Corpuscular Volume 101H, Mean Corpuscular Hemoglobin 30, Mean Corpuscular Hemoglobin Concent 30L, Red Cell Distribution Width 16.2H, Platelet Count 291, Mean Platelet Volume 8.6L, Immature Granulocyte % (Auto) 1, Neutrophils (%) (Auto) 49, Lymphocytes (%) (Auto) 29, Monocytes (%) (Auto) 11, Eosinophils (%) (Auto) 10, Basophils (%) (Auto) 1, Neutrophils # (Auto) 2.0, Lymphocytes # (Auto) 1.2, Monocytes # (Auto) 0.5, Eosinophils # (Auto) 0.4H, Basophils # (Auto) 0.0, Immature Granulocyte # (Auto) 0.0, Sodium Level 148H, Potassium Level 3.1L, Chloride Level 113H, Carbon Dioxide Level 22, Anion Gap 13, Blood Urea Nitrogen 5L, Creatinine 0.66, Estimat Glomerular Filtration Rate 100, BUN/Creatinine Ratio 8, Glucose Level 76, Calcium Level 7.5L, Corrected Calcium 8.7, Phosphorus Level 3.7, Magnesium Level 1.8, Total Bilirubin 0.4, Aspartate Amino Transf (AST/SGOT) 36H, Alanine Aminotransferase (ALT/SGPT) 20, Alkaline Phosphatase 76, Total Protein 4.0L, Albumin 2.5L, Vancomycin Level Trough 26.5*H 03/31/21 17:18: White Blood Count 4.0L, Red Blood Count 2.41L, Hemoglobin 7.2L, Hematocrit 24L, Mean Corpuscular Volume 98, Mean Corpuscular Hemoglobin 30, Mean Corpuscular Hemoglobin Concent 31L, Red Cell Distribution Width 15.8H, Platelet Count 254, Mean Platelet Volume 8.3L 03/31/21 21:20: Vancomycin Level Trough 16.5 04/01/21 04:40: White Blood Count 3.8L, Red Blood Count 2.33L, Hemoglobin 7.0L, Hematocrit 23L, Mean Corpuscular Volume 99, Mean Corpuscular Hemoglobin 30, Mean Corpuscular Hemoglobin Concent 30L, Red Cell Distribution Width 16.4H, Platelet Count 266, Mean Platelet Volume 8.5L, Immature Granulocyte % (Auto) 1, Neutrophils (%) (Auto) 46, Lymphocytes (%) (Auto) 33, Monocytes (%) (Auto) 11, Eosinophils (%) (Auto) 9, Basophils (%) (Auto) 0, Neutrophils # (Auto) 1.8, Lymphocytes # (Auto) 1.3, Monocytes # (Auto) 0.4, Eosinophils # (Auto) 0.3, Basophils # (Auto) 0.0, Immature Granulocyte # (Auto) 0.0, Sodium Level 147H, Potassium Level 2.8L, Chloride Level 114H, Carbon Dioxide Level 21, Anion Gap 12, Blood Urea Nitrogen 4L, Creatinine 0.65, Estimat Glomerular Filtration Rate 102, BUN/Creatinine Ratio 6, Glucose Level 87, Calcium Level 7.3L, Corrected Calcium 8.3L, Phos phorus Level 3.0, Magnesium Level 2.0, Total Bilirubin 0.4, Aspartate Amino Transf (AST/SGOT) 32, Alanine Aminotransferase (ALT/SGPT) 19, Alkaline Phosphatase 66, Total Protein 4.0L, Albumin 2.8L 04/02/21 05:20: White Blood Count 4.4, Red Blood Count 2.33L, Hemoglobin 7.1L, Hematocrit 23L, Mean Corpuscular Volume 100H, Mean Corpuscular Hemoglobin 31, Mean Corpuscular Hemoglobin Concent 31L, Red Cell Distribution Width 16.4H, Platelet Count 243, Mean Platelet Volume 9.2, Immature Granulocyte % (Auto) 1, Neutrophils (%) (Auto) 52, Lymphocytes (%) (Auto) 30, Monocytes (%) (Auto) 11, Eosinophils (%) (Auto) 6, Basophils (%) (Auto) 1, Neutrophils # (Auto) 2.3, Lymphocytes # (Auto) 1.3, Monocytes # (Auto) 0.5, Eosinophils # (Auto) 0.3, Basophils # (Auto) 0.0, Immature Granulocyte # (Auto) 0.0, Sodium Level 148H, Potassium Level 4.2, Chloride Level 115H, Carbon Dioxide Level 22, Anion Gap 11, Blood Urea Nitrogen 3L, Creatinine 0.68, Estimat Glomerular Filtration Rate 97, BUN/Creatinine Ratio 4, Glucose Level 78, Calcium Level 7.2L, Corrected Calcium 7.8L, Magnesium Level 1.8, Total Bilirubin 0.7, Aspartate Amino Transf (AST/SGOT) 32, Alanine Aminotransferase (ALT/SGPT) 25, Alkaline Phosphatase 63, Total Protein 4.4L, Albumin 3.3 04/02/21 10:25: Vancomycin Level Trough 26.0*H 04/02/21 15:05: Vancomycin Level Trough 21.7H 04/03/21 04:12: White Blood Count 4.6, Red Blood Count 2.32L, Hemoglobin 7.1L, Hematocrit 23L, Mean Corpuscular Volume 100H, Mean Corpuscular Hemoglobin 31, Mean Corpuscular Hemoglobin Concent 31L, Red Cell Distribution Width 16.0H, Platelet Count 237, Mean Platelet Volume 8.9L, Immature Granulocyte % (Auto) 1, Neutrophils (%) (Auto) 44, Lymphocytes (%) (Auto) 37, Monocytes (%) (Auto) 11, Eosinophils (%) (Auto) 7, Basophils (%) (Auto) 1, Neutrophils # (Auto) 2.0, Lymphocytes # (Auto) 1.7, Monocytes # (Auto) 0.5, Eosinophils # (Auto) 0.3, Basophils # (Auto) 0.0, Immature Granulocyte # (Auto) 0.0, Sodium Level 148H, Potassium Level 3.6, Chloride Level 113H, Carbon Dioxide Level 22, Anion Gap 13, Blood Urea Nitrogen 3L, Creatinine 0.63, Estimat Glomerular Filtration Rate 106, BUN/Creatinine Ratio 5, Glucose Level 77, Calcium Level 7.7L, Corrected Calcium 8.3L, Magnesium Level 1.8, Iron Level 43, Total Bilirubin 0.6, Aspartate Amino Transf (AST/SGOT) 21, Alanine Aminotransferase (ALT/SGPT) 20, Alkaline Phosphatase 58, Total Protein 4.4L, Albumin 3.2 04/03/21 09:36: Lab Scanned Report Transfusion Reaction Form 04/03/21 11:05: Vitamin B12 Level 595 04/04/21 05:22: White Blood Count 5.2, Red Blood Count 2.57L, Hemoglobin 7.8L, Hematocrit 26L, Mean Corpuscular Volume 101H, Mean Corpuscular Hemoglobin 30, Mean Corpuscular Hemoglobin Concent 30L, Red Cell Distribution Width 16.1H, Platelet Count 246, Mean Platelet Volume 9.1, Immature Granulocyte % (Auto) 0, Neutrophils (%) (Auto) 44, Lymphocytes (%) (Auto) 36, Monocytes (%) (Auto) 12, Eosinophils (%) (Auto) 8, Basophils (%) (Auto) 1, Neutrophils # (Auto) 2.3, Lymphocytes # (Auto) 1.9, Monocytes # (Auto) 0.6, Eosinophils # (Auto) 0.4H, Basophils # (Auto) 0.0, Immature Granulocyte # (Auto) 0.0, Sodium Level 146H, Potassium Level 3.6, Chloride Level 114H, Carbon Dioxide Level 21, Anion Gap 11, Blood Urea Nitrogen 5L, Creatinine 0.65, Estimat Glomerular Filtration Rate 102, BUN/Creatinine Ratio 8, Glucose Level 80, Calcium Level 7.5L, Corrected Calcium 8.3L, Magnesium Level 1.5L, Total Bilirubin 0.5, Aspartate Amino Transf (AST/SGOT) 17, Alanine Aminotransferase (ALT/SGPT) 17, Alkaline Phosphatase 61, Total Protein 4.1L, Albumin 3.0L 04/04/21 18:54: Vancomycin Level Trough 15.4 04/05/21 03:42: White Blood Count 6.1, Red Blood Count 2.78L, Hemoglobin 8.5L, Hematocrit 28L, Mean Corpuscular Volume 100H, Mean Corpuscular Hemoglobin 31, Mean Corpuscular Hemoglobin Concent 31L, Red Cell Distribution Width 15.9H, Platelet Count 262, Mean Platelet Volume 8.9L, Immature Granulocyte % (Auto) 0, Neutrophils (%) (Auto) 44, Lymphocytes (%) (Auto) 38, Monocytes (%) (Auto) 10, Eosinophils (%) (Auto) 7, Basophils (%) (Auto) 1, Neutrophils # (Auto) 2.7, Lymphocytes # (Auto) 2.3, Monocytes # (Auto) 0.6, Eosinophils # (Auto) 0.4H, Basophils # (Auto) 0.0, Immature Granulocyte # (Auto) 0.0, Sodium Level 144, Potassium Level 3.7, Chloride Level 113H, Carbon Dioxide Level 21, Anion Gap 10, Blood Urea Nitrogen 8, Creatinine 0.64, Estimat Glomerular Filtration Rate 104, BUN/Creatinine Ratio 13, Glucose Level 80, Calcium Level 7.6L, Corrected Calcium 8.4L, Magnesium Level 1.9, Total Bilirubin 0.5, Aspartate Amino Transf (AST/SGOT) 14, Alanine Aminotransferase (ALT/SGPT) 14, Alkaline Phosphatase 67, Total Protein 4.3L, Albumin 3.0L 04/06/21 06:30: White Blood Count 6.7, Red Blood Count 2.82L, Hemoglobin 8.6L, Hematocrit 28L, Mean Corpuscular Volume 100H, Mean Corpuscular Hemoglobin 31, Mean Corpuscular Hemoglobin Concent 31L, Red Cell Distribution Width 15.9H, Platelet Count 258, Mean Platelet Volume 9.1, Immature Granulocyte % (Auto) 1, Neutrophils (%) (Auto) 43, Lymphocytes (%) (Auto) 39, Monocytes (%) (Auto) 10, Eosinophils (%) (Auto) 7, Basophils (%) (Auto) 1, Neutrophils # (Auto) 2.9, Lymphocytes # (Auto) 2.6, Monocytes # (Auto) 0.7, Eosinophils # (Auto) 0.5H, Basophils # (Auto) 0.1, Immature Granulocyte # (Auto) 0.0, Sodium Level 142, Potassium Level 3.2L, Chloride Level 112H, Carbon Dioxide Level 19L, Anion Gap 11, Blood Urea Nitrogen 8, Creatinine 0.64, Estimat Glomerular Filtration Rate 104, BUN/Creatinine Ratio 13, Glucose Level 76, Calcium Level 8.0L, Corrected Calcium 8.9, Magnesium Level 1.7, Total Bilirubin 0.5, Aspartate Amino Transf (AST/SGOT) 13, Alanine Aminotransferase (ALT/SGPT) 14, Alkaline Phosphatase 69, Total Protein 4.6L, Albumin 2.9L Microbiology 03/31/21 C. difficile GDH Antigen & Toxins - Final, Complete 03/29/21 Gram Stain - Final, Complete 03/29/21 Surgical Culture - Final, Complete Pseudomonas aeruginosa 03/29/21 Catheter Tip Culture - Final, Complete Staphylococcus epidermidis 03/29/21 Urine Culture - Final, Complete Pseudomonas aeruginosa Enterobacter cloacae complex 03/29/21 MRSA Screen - Final, Complete MRSA not isolated Pending Labs Microbiology Date/Time Source Procedure Growth Status 03/31/21 21:30 Stool C. difficile GDH Antigen & Toxins - Final Complete 03/29/21 16:30 Bone Sacrum Gram Stain - Final Complete 03/29/21 16:30 Surgical Culture - Final Pseudomonas aeruginosa Complete 03/29/21 16:30 Ulcer Sacral Gram Stain - Final Complete 03/29/21 16:30 Wound Culture - Final Pseudomonas aeruginosa Usual Mixed Skin Dee Complete 03/29/21 13:20 Picc N/A Catheter Tip Culture - Final Staphylococcus epidermidis Complete 03/29/21 02:03 Urine Indwelling Cath ([employer]) Urine Culture - Final Pseudomonas aeruginosa Enterobacter cloacae complex Complete 03/29/21 01:27 Nasal MRSA Screen - Final MRSA not isolated Complete 03/28/21 12:37 Port Picc Blood Culture - Final No growth Complete 03/28/21 12:08 Urine Clean Catch Urine Culture - Final Enterobacter Cloacae Complex Pseudomonas aeruginosa Complete 03/28/21 10:37 Port Picc Blood Culture - Final No growth Complete Laboratory Tests 03/28/21 10:37: White Blood Count 7.7, Red Blood Count 3.19, Hemoglobin 9.5, Hematocrit 32, Mean Corpuscular Volume 99, Mean Corpuscular Hemoglobin 30, Mean Corpuscular Hemoglobin Concent 30, Red Cell Distribution Width 15.4, Platelet Count 410, Mean Platelet Volume 8.7, Immature Granulocyte % (Auto) 0, Neutrophils (%) (Auto) 66, Lymphocytes (%) (Auto) 23, Monocytes (%) (Auto) 8, Eosinophils (%) (Auto) 2, Basophils (%) (Auto) 1, Neutrophils # (Auto) 5.1, Lymphocytes # (Auto) 1.8, Monocytes # (Auto) 0.6, Eosinophils # (Auto) 0.2, Basophils # (Auto) 0.1, Immature Granulocyte # (Auto) 0.0, Prothrombin Time 17.7, INR Comment 1.4, Activated Partial Thromboplast Time 30, Sodium Level 142, Potassium Level 3.5, Chloride Level 108, Carbon Dioxide Level 19, Anion Gap 15, Blood Urea Nitrogen 26, Creatinine 0.81, Estimat Glomerular Filtration Rate 79, BUN/Creatinine Ratio 32, Glucose Level 99, Lactic Acid Level 3.85, Calcium Level 7.7, Corrected Calcium 9.3, Total Bilirubin 0.2, Aspartate Amino Transf (AST/SGOT) 22, Alanine Aminotransferase (ALT/SGPT) 19, Alkaline Phosphatase 132, Total Protein 4.3, Albumin 2.0, Procalcitonin 0.07 03/28/21 12:08: Urine Color YELLOW, Urine Clarity SL CLOUDY, Urine pH 6.0, Urine Specific [place] >=1.030, Urine Protein 2+, Urine Glucose (UA) TRACE, Urine Ketones NEGATIVE, Urine Nitrite POSITIVE, Urine Bilirubin 1+, Urine Urobilinogen 1.0, Urine Leukocyte Esterase 1+, Urine RBC (Auto) 3+, Urine RBC 25-50, Urine WBC 50- 100, Urine Squamous Epithelial Cells NONE, Urine Crystals PRESENT, Urine Calcium Oxalate Crystals RARE, Urine Bacteria LARGE, Urine Casts NONE, Urine Mucus NEGATIVE, Urine Culture Indicated CULTURE PENDING 03/28/21 12:37: Lactic Acid Level 3.08 03/28/21 12:52: Lab Scanned Report Referred Lab Report 03/28/21 15:09: Lactic Acid Level 1.92 03/29/21 02:05: Urine Color YELLOW, Urine Clarity SL CLOUDY, Urine pH 7.0, Urine Specific [place] 1.010, Urine Protein 1+, Urine Glucose (UA) NEGATIVE, Urine Ketones NEGATIVE, Urine Nitrite POSITIVE, Urine Bilirubin NEGATIVE, Urine Urobilinogen 0.2, Urine Leukocyte Esterase 3+, Urine RBC (Auto) 2+, Urine RBC 5-10, Urine WBC 25-50, Urine Squamous Epithelial Cells 0-2, Urine Crystals NONE, Urine Bacteria MODERATE, Urine Casts NONE, Urine Mucus NEGATIVE, Urine Culture Indicated YES 03/29/21 05:35: White Blood Count 5.1, Red Blood Count 2.50, Hemoglobin 7.4, Hematocrit 25, Mean Corpuscular Volume 100, Mean Corpuscular Hemoglobin 30, Mean Corpuscular Hemoglobin Concent 30, Red Cell Distribution Width 15.7, Platelet Count 302, Mean Platelet Volume 8.8, Immature Granulocyte % (Auto) 0, Neutrophils (%) (Auto) 73, Lymphocytes (%) (Auto) 14, Monocytes (%) (Auto) 8, Eosinophils (%) (Auto) 5, Basophils (%) (Auto) 0, Neutrophils # (Auto) 3.7, Lymphocytes # (Auto) 0.7, Monocytes # (Auto) 0.4, Eosinophils # (Auto) 0.2, Basophils # (Auto) 0.0, Immature Granulocyte # (Auto) 0.0, Sodium Level 141, Potassium Level 3.4, Chloride Level 110, Carbon Dioxide Level 21, Anion Gap 10, Blood Urea Nitrogen 15, Creatinine 0.61, Estimat Glomerular Filtration Rate 110, BUN/Creatinine Ratio 25, Glucose Level 75, Calcium Level 6.8, Corrected Calcium 8.8, Phosphorus Level 4.2, Magnesium Level 1.2, Total Bilirubin 0.2, Aspartate Amino Transf (AST /SGOT) 17, Alanine Aminotransferase (ALT/SGPT) 10, Alkaline Phosphatase 100, Total Protein 3.3, Albumin 1.5 03/29/21 16:30: Miscellaneous Test [Pending], Miscellaneous Test Result [Pending] 03/30/21 08:50: White Blood Count 10.7, Red Blood Count 3.22, Hemoglobin 9.7, Hematocrit 32, Mean Corpuscular Volume 100, Mean Corpuscular Hemoglobin 30, Mean Corpuscular Hemoglobin Concent 30, Red Cell Distribution Width 15.9, Platelet Count 403, Mean Platelet Volume 8.6, Immature Granulocyte % (Auto) 1, Neutrophils (%) (Auto) 78, Lymphocytes (%) (Auto) 12, Monocytes (%) (Auto) 8, Eosinophils (%) (Auto) 1, Basophils (%) (Auto) 0, Neutrophils # (Auto) 8.4, Lymphocytes # (Auto) 1.3, Monocytes # (Auto) 0.8, Eosinophils # (Auto) 0.1, Basophils # (Auto) 0.0, Immature Granulocyte # (Auto) 0.1, Sodium Level 143, Potassium Level 4.4, Chloride Level 114, Carbon Dioxide Level 16, Anion Gap 13, Blood Urea Nitrogen 9, Creatinine 0.66, Estimat Glomerular Filtration Rate 100, BUN/Creatinine Ratio 14, Glucose Level 103, Calcium Level 7.1, Corrected Calcium 8.9, Phosphorus Level 4.0, Magnesium Level 1.8, Total Bilirubin 0.3, Aspartate Amino Transf (AST/SGOT) 27, Alanine Aminotransferase (ALT/SGPT) 18, Alkaline Phosphatase 114, Total Protein 4.0, Albumin 1.7 03/31/21 07:50: White Blood Count 4.1, Red Blood Count 2.19, Hemoglobin 6.5, Hematocrit 22, Mean Corpuscular Volume 101, Mean Corpuscular Hemoglobin 30, Mean Corpuscular Hemoglobin Concent 30, Red Cell Distribution Width 16.2, Platelet Count 291, Mean Platelet Volume 8.6, Immature Granulocyte % (Auto) 1, Neutrophils (%) (Auto) 49, Lymphocytes (%) (Auto) 29, Monocytes (%) (Auto) 11, Eosinophils (%) (Auto) 10, Basophils (%) (Auto) 1, Neutrophils # (Auto) 2.0, Lymphocytes # ( Auto) 1.2, Monocytes # (Auto) 0.5, Eosinophils # (Auto) 0.4, Basophils # (Auto) 0.0, Immature Granulocyte # (Auto) 0.0, Sodium Level 148, Potassium Level 3.1, Chloride Level 113, Carbon Dioxide Level 22, Anion Gap 13, Blood Urea Nitrogen 5, Creatinine 0.66, Estimat Glomerular Filtration Rate 100, BUN/Creatinine Ratio 8, Glucose Level 76, Calcium Level 7.5, Corrected Calcium 8.7, Phosphorus Level 3.7, Magnesium Level 1.8, Total Bilirubin 0.4, Aspartate Amino Transf (AST/SGOT) 36, Alanine Aminotransferase (ALT/SGPT) 20, Alkaline Phosphatase 76, Total Protein 4.0, Albumin 2.5, Vancomycin Level Trough 26.5 03/31/21 17:18: White Blood Count 4.0, Red Blood Count 2.41, Hemoglobin 7.2, Hematocrit 24, Mean Corpuscular Volume 98, Mean Corpuscular Hemoglobin 30, Mean Corpuscular Hemoglobin Concent 31, Red Cell Distribution Width 15.8, Platelet Count 254, Mean Platelet Volume 8.3 03/31/21 21:20: Vancomycin Level Trough 16.5 04/01/21 04:40: White Blood Count 3.8, Red Blood Count 2.33, Hemoglobin 7.0, Hematocrit 23, Mean Corpuscular Volume 99, Mean Corpuscular Hemoglobin 30, Mean Corpuscular Hemoglobin Concent 30, Red Cell Distribution Width 16.4, Platelet Count 266, Mean Platelet Volume 8.5, Immature Granulocyte % (Auto) 1, Neutrophils (%) (Auto) 46, Lymphocytes (%) (Auto) 33, Monocytes (%) (Auto) 11, Eosinophils (%) (Auto) 9, Basophils (%) (Auto) 0, Neutrophils # (Auto) 1.8, Lymphocytes # (Auto) 1.3, Monocytes # (Auto) 0.4, Eosinophils # (Auto) 0.3, Basophils # (Auto) 0.0, Immature Granulocyte # (Auto) 0.0, Sodium Level 147, Potassium Level 2.8, Chloride Level 114, Carbon Dioxide Level 21, Anion Gap 12, Blood Urea Nitrogen 4, Creatinine 0.65, Estimat Glomerular Filtration Rate 102, BUN/Creatinine Ratio 6, Glucose Level 87, Calcium Level 7.3, Corrected Calcium 8.3, Phosphorus Level 3.0, Magnesium Level 2.0, Total Bilirubin 0.4, Aspartate Amino Transf (AST/SGOT) 32, Alanine Aminotransferase (ALT/SGPT) 19, Alkaline Phosphatase 66, Total Protein 4.0, Albumin 2.8 04/02/21 05:20: White Blood Count 4.4, Red Blood Count 2.33, Hemoglobin 7.1, Hematocrit 23, Mean Corpuscular Volume 100, Mean Corpuscular Hemoglobin 31, Mean Corpuscular Hemoglobin Concent 31, Red Cell Distribution Width 16.4, Platelet Count 243, Mean Platelet Volume 9.2, Immature Granulocyte % (Auto) 1, Neutrophils (%) (Auto) 52, Lymphocytes (%) (Auto) 30, Monocytes (%) (Auto) 11, Eosinophils (%) (Auto) 6, Basophils (%) (Auto) 1, Neutrophils # (Auto) 2.3, Lymphocytes # (Auto) 1.3, Monocytes # (Auto) 0.5, Eosinophils # (Auto) 0.3, Basophils # (Auto) 0.0, Immature Granulocyte # (Auto) 0.0, Sodium Level 148, Potassium Level 4.2, Chloride Level 115, Carbon Dioxide Level 22, Anion Gap 11, Blood Urea Nitrogen 3, Creatinine 0.68, Estimat Glomerular Filtration Rate 97, BUN/Creatinine Ratio 4, Glucose Level 78, Calcium Level 7.2, Corrected Calcium 7.8, Magnesium Level 1.8, Total Bilirubin 0.7, Aspartate Amino Transf (AST/SGOT) 32, Alanine Aminotransferase (ALT/SGPT) 25, Alkaline Phosphatase 63, Total Protein 4.4, Albumin 3.3 04/02/21 10:25: Vancomycin Level Trough 26.0 04/02/21 15:05: Vancomycin Level Trough 21.7 04/03/21 04:12: White Blood Count 4.6, Red Blood Count 2.32, Hemoglobin 7.1, Hematocrit 23, Mean Corpuscular Volume 100, Mean Corpuscular Hemoglobin 31, Mean Corpuscular Hemoglobin Concent 31, Red Cell Distribution Width 16.0, Platelet Count 237, Mean Platelet Volume 8.9, Immature Granulocyte % (Auto) 1, Neutrophils (%) (Auto) 44, Lymphocytes (%) (Auto) 37, Monocytes (%) (Auto) 11, Eosinophils (%) (Auto) 7, Basophils (%) (Auto) 1, Neutrophils # (Auto) 2.0, Lymphocytes # (Auto) 1.7, Monocytes # (Auto) 0.5, Eosinophils # (Auto) 0.3, Basophils # (Auto) 0.0, Immature Granulocyte # (Auto) 0.0, Sodium Level 148, Potassium Level 3.6, Chloride Level 113, Carbon Dioxide Level 22, Anion Gap 13, Blood Urea Nitrogen 3, Creatinine 0.63, Estimat Glomerular Filtration Rate 106, BUN/Creatinine Ratio 5, Glucose Level 77, Calcium Level 7.7, Corrected Calcium 8.3, Magnesium Level 1.8, Iron Level 43, Total Bilirubin 0.6, Aspartate Amino Transf (AST/SGOT) 21, Alanine Aminotransferase (ALT/SGPT) 20, Alkaline Phosphatase 58, Total Protein 4.4, Albumin 3.2 04/03/21 09:36: Lab Scanned Report Transfusion Reaction Form 04/03/21 11:05: Vitamin B12 Level 595 04/04/21 05:22: White Blood Count 5.2, Red Blood Count 2.57, Hemoglobin 7.8, Hematocrit 26, Mean Corpuscular Volume 101, Mean Corpuscular Hemoglobin 30, Mean Corpuscular Hemoglobin Concent 30, Red Cell Distribution Width 16.1, Platelet Count 246, Mean Platelet Volume 9.1, Immature Granulocyte % (Auto) 0, Neutrophils (%) (Auto) 44, Lymphocytes (%) (Auto) 36, Monocytes (%) (Auto) 12, Eosinophils (%) (Auto) 8, Basophils (%) (Auto) 1, Neutrophils # (Auto) 2.3, Lymphocytes # (Auto) 1.9, Monocytes # (Auto) 0.6, Eosinophils # (Auto) 0.4, Basophils # (Auto) 0.0, Immature Granulocyte # (Auto) 0.0, Sodium Level 146, Potassium Level 3.6, Chloride Level 114, Carbon Dioxide Level 21, Anion Gap 11, Blood Urea Nitrogen 5, Creatinine 0.65, Estimat Glomerular Filtration Rate 102, BUN/Creatinine Ratio 8, Glucose Level 80, Calcium Level 7.5, Corrected Calcium 8.3, Magnesium Level 1.5, Total Bilirubin 0.5, Aspartate Amino Transf (AST/SGOT) 17, Alanine Aminotransferase (ALT/SGPT) 17, Alkaline Phosphatase 61, Total Protein 4.1, Albumin 3.0 04/04/21 18:54: Vancomycin Level Trough 15.4 04/05/21 03:42: White Blood Count 6.1, Red Blood Count 2.78, Hemoglobin 8.5, Hematocrit 28, Mean Corpuscular Volume 100, Mean Corpuscular Hemoglobin 31, Mean Corpuscular H emoglobin Concent 31, Red Cell Distribution Width 15.9, Platelet Count 262, Mean Platelet Volume 8.9, Immature Granulocyte % (Auto) 0, Neutrophils (%) (Auto) 44, Lymphocytes (%) (Auto) 38, Monocytes (%) (Auto) 10, Eosinophils (%) (Auto) 7, Basophils (%) (Auto) 1, Neutrophils # (Auto) 2.7, Lymphocytes # (Auto) 2.3, Monocytes # (Auto) 0.6, Eosinophils # (Auto) 0.4, Basophils # (Auto) 0.0, Immature Granulocyte # (Auto) 0.0, Sodium Level 144, Potassium Level 3.7, Chloride Level 113, Carbon Dioxide Level 21, Anion Gap 10, Blood Urea Nitrogen 8, Creatinine 0.64, Estimat Glomerular Filtration Rate 104, BUN/Creatinine Ratio 13, Glucose Level 80, Calcium Level 7.6, Corrected Calcium 8.4, Magnesium Level 1.9, Total Bilirubin 0.5, Aspartate Amino Transf (AST/SGOT) 14, Alanine Aminotransferase (ALT/SGPT) 14, Alkaline Phosphatase 67, Total Protein 4.3, Albumin 3.0 04/06/21 06:30: White Blood Count 6.7, Red Blood Count 2.82, Hemoglobin 8.6, Hematocrit 28, Mean Corpuscular Volume 100, Mean Corpuscular Hemoglobin 31, Mean Corpuscular Hemoglobin Concent 31, Red Cell Distribution Width 15.9, Platelet Count 258, Mean Platelet Volume 9.1, Immature Granulocyte % (Auto) 1, Neutrophils (%) (Auto) 43, Lymphocytes (%) (Auto) 39, Monocytes (%) (Auto) 10, Eosinophils (%) (Auto) 7, Basophils (%) (Auto) 1, Neutrophils # (Auto) 2.9, Lymphocytes # (Auto) 2.6, Monocytes # (Auto) 0.7, Eosinophils # (Auto) 0.5, Basophils # (Auto) 0.1, Immature Granulocyte # (Auto) 0.0, Sodium Level 142, Potassium Level 3.2, Chloride Level 112, Carbon Dioxide Level 19, Anion Gap 11, Blood Urea Nitrogen 8, Creatinine 0.64, Estimat Glomerular Filtration Rate 104, BUN/Creatinine Ratio 13, Glucose Level 76, Calcium Level 8.0, Corrected Calcium 8.9, Magnesium Level 1.7, Total Bilirubin 0.5, Aspartate Amino Transf (AST/SGOT) 13, Alanine Aminotransferase (ALT/SGPT) 14, Alkaline Phosphatase 69, Total Protein 4.6, Albumin 2.9 Discharge Home Medications: Active Scripts Active Reported Santyl (Collagenase) 30 Gm Oint..gm. 1 Applic TP BID APPLY TO SACRAL WOUND EVERY DAY AND SNELLER HAND Venelex Ointment (Balsam [place] Oil) 60 Gm Oint...g. 1 Applic TP UD APPLY TO SACRUM WITH EVERY SHIFT CHANGE Sertraline HCl 50 Mg Tablet 50 Mg PO DAILY Ondansetron Odt (Ondansetron) 4 Mg Tab.rapdis 4 Mg PO Q8H PRN Pentasa (Mesalamine) 250 Mg Capsule.er 250 Mg PO TID Oxybutynin Chloride 5 Mg Tablet 5 Mg PO TID Narcan (Naloxone HCl) 4 Mg Eugene 1 Sprays NA UD PRN USE 1 SPRAY IN 1 NOSTRIL AND MAY REPEAT ALTERNATING NOSTRIL EVERY 2-3 MINUTES UNTIL RESPONSIVE OR EMS ARRIVES Multivitamin 1 Each Tablet 1 Each PO DAILY Antifungal Cream (Miconazole Nitrate) 14 Gm Cream..g. 1 Applic TP Q8H PRN Melatonin 5 Mg Tablet 5 Mg PO HS Ultra A-D (Loperamide HCl) 2 Mg Tablet 2 Mg PO DAILY Hydrocodone-Acetamin 7.5-325 (Hydrocodone/Acetaminophen) 1 Each Tablet 1 Each PO QID Ferrous Sulfate 325 Mg Tablet.dr 325 Mg PO DAILY Vitamin D2 (Ergocalciferol (Vitamin D2)) 1,250 Mcg Capsule 1,250 Mcg PO MON Eliquis (Apixaban) 5 Mg Tablet 5 Mg PO BID Atorvastatin Calcium 40 Mg Tablet 40 Mg PO HS Atenolol 25 Mg Tablet 25 Mg PO BID HOLD FOR SBP <100 OR PULSE <60 Aspirin 81 Mg Tab.chew 81 Mg PO DAILY Proair Hfa (Albuterol Sulfate) 1 Puff Puff 2 Puff IH Q6H PRN Acidophilus-Pectin Capsule (Lactobacillus Acidophilus/Pect) 1 Each Capsule 1 Each PO BID Tylenol (Acetaminophen) 325 Mg Tablet 650 Mg PO Q4H PRN Instructions to patient/family Please see electronic discharge instructions given to patient. TERRA EDWARDS DO Apr 06, 2021 12:01
--- NOTE | 2021-04-06 13:50 | Progress Note ---
AI LEON 04/06/21 1350: Progress Note Ms. Segal is a 36 y/o female with a PMHx of post-COVID syndrome. She has had a complicated course after COVID in November which required intubation. She was at [facility] in [place], [place], [facility] in [place], [place], and [facility]. She presented to the ED on 28 March from [facility] with reports of nausea, vomiting, diarrhea, and hypotension. She reported her symptoms began on 24 March. She is being seen by wound care for a sacral decubitius ulcer that became infected and caused her sepsis. Her ulcer is being treated with a wound-vac. She has been chronically ill since her bout with COVID. She has slowly progressed and has been seen for her ulcer throughout this week in the hospital. She is deconditioned from COVID but has wanted to move to inpatient rehab at [facility]. Throughout the week her strength and spirits have been improving and today she was moved from 4th floor down to inpatient rehab. She is a good candidate for inpatient rehab and continued to make progress throughout the week. She is excited to begin. HELENE EDWARDS DO 04/07/21 0625: Supervisory-Addendum Brief Verification & Attestation Participated in pt care: history, MDM, physical Personally performed: exam, history, MDM, supervision of care Care discussed with: Medical Student Procedures: n/a Results interpretation: Verified all documentation Verification and Attestation of Medical Student E/M Service A medical student performed and documented this service in my presence. I reviewed and verified all information documented by the medical student and made modifications to such information, when appropriate. I personally performed the physical exam and medical decision making. Helene Edwards Apr 07, 2021,06:25 AI LEON Apr 06, 2021 13:50 HELENE EDWARDS DO Apr 07, 2021 06:25
[2021-04-06] MEDS ORDERED: MELATONIN 10 MG TABLET PO SCH (21:00)
[2021-04-09] MEDS ORDERED: VITAMIN D2 1.25 MG (50,000 UNITS) CAP PO SCH (09:00)
== END 2021-04-06 09:27 | DRG 853 ==
LOC: EDUNIT# 09:47 → ER 09:48 → 4TH 12:52 → ICU 03-29 01:11 → 4TH 04-01 10:17
PROVIDERS: ADMIT Family Medicine; ATTEND Internal Medicine
PROC: 0QB10ZX Excision of Sacrum, Open Approach, Diagnostic (ICD-10-PCS; principal; 2021-03-29)
DX: A41.9 Sepsis, unspecified organism (principal); L89.154 Pressure ulcer of sacral region, stage 4; R65.21 Severe sepsis with septic shock; M46.28 Osteomyelitis of vertebra, sacral and sacrococcygeal region; N39.0 Urinary tract infection, site not specified; E46 Unspecified protein-calorie malnutrition; E11.69 Type 2 diabetes mellitus with other specified complication; D64.9 Anemia, unspecified; K21.9 Gastro-esophageal reflux disease without esophagitis; L89.892 Pressure ulcer of other site, stage 2; R19.7 Diarrhea, unspecified; E87.6 Hypokalemia; F41.9 Anxiety disorder, unspecified; F32.A Depression, unspecified; Z86.16 Personal history of COVID-19; Z79.01 Long term (current) use of anticoagulants; Z79.82 Long term (current) use of aspirin; Z68.37 Body mass index [BMI] 37.0-37.9, adult
CPT/HCPCS: 36410; 36415; 36569; 71045; 76937; 80053; 80202; 81000; 82607; 83540; 83605; 83735; 84100; 84145; 85025; 85027; 85610; 85730; 86850; 86900; 86901; 86920; 87040; 87070; 87077; 87081; 87088; 87186; 87205; 87324; 87449; 88307; 96361; 96374; 96375

== ENCOUNTER → 2021-03-28 | Outpatient (CLI) | payer BC ==
[~2021-03-28] MED LIST: ACET325T38 PO; APIX5TAB PO; ASPI-999 PO; ATEN25TA PO; ATOR40TA70 PO; BALS60OI TP; COLL30OI TP; ERGO1250 PO; FERR325T5 PO; HYDR-3817 PO; LACT1CAP7 PO; LOPE2TAB48 PO; MELA5TAB14 PO; MESA250C PO; MICO14CR7 TP; MULT-1136 PO; NALO4SPR; ONDA4TAB11 PO; OXYB5TAB13 PO; RT-ALBUINH IH; SERT-413 PO
== END ==
LOC: WOUNDCARE 09:07
PROVIDERS: ATTEND Family Medicine
DX: I95.9 Hypotension, unspecified (principal); R00.0 Tachycardia, unspecified; R11.2 Nausea with vomiting, unspecified
CPT/HCPCS: 99204

== ENCOUNTER 2021-04-06 08:36 | Inpatient (IN) | payer BC ==
[~2021-04-06] VITALS: Ht 162 cm; Wt 90.1 kg
[2021-04-06] MEDS ORDERED: guaiFENesin/CODEINE (ROBITUSSIN AC) 10ML UDC PO PRN (10:00)
[2021-04-06] MEDS ORDERED: MELATONIN 3 MG TABLET PO PRN (10:00)
[2021-04-06] MEDS ORDERED: CALCIUM CARBONATE 500 MG (TUMS) TAB.CHEW PO PRN (10:00)
[2021-04-06] MEDS ORDERED: BISACODYL 10 MG SUPP (DULCOLAX) PR PRN (10:00)
[2021-04-06] MEDS ORDERED: LACTULOSE SYRUP 10GM/15ML (ENULOSE) 30ML UDC PO PRN (10:00)
[2021-04-06] MEDS ORDERED: DOCUSATE SODIUM 100 MG (COLACE) CAP PO PRN ×2 (10:00→21:00)
[2021-04-06] MEDS ORDERED: ONDANSETRON 4 MG (ZOFRAN) ORAL DISSOLVE TAB PO PRN (10:00)
[2021-04-06] MEDS ORDERED: FLEET ENEMA ADULT 1 EA BTL PR PRN (10:00)
[2021-04-06] MEDS ORDERED: diphenhydrAMINE 25 MG TAB (BENADRYL) PO PRN (10:00)
[2021-04-06] MEDS ORDERED: ALPRAZolam 0.25 MG (XANAX) TAB PO PRN (10:00)
--- NOTE | 2021-04-06 11:15 | Physical Therapy Evaluation ---
PT Evaluation-General Medical Diagnosis Admission Date Apr 06, 2021 at 09:52 Medical Diagnosis: Severe Sepsis, UTI, Sacral ulcer, Post COVID Onset Date: Nov 15, 2020 Therapy Diagnosis Therapy Diagnosis: Gait Deficit, strength deficit Precautions Precautions/Isolations: Contact Isolation, Fall Prevention Contact Urine Weight Bear Status Right Lower Extremity: Right Full Weight Bearing Left Lower Extremity: Left Full Weight Bearing Patient is cleared medically to bear weight through bilateral LEs, however due to prolonged illness and bed rest, patients LE's very weak and plantarflexion contractures bilaterally Referral Physician: Dr. Cardoso Reason for Referral: Evaluation/Treatment Social History Home: Single Level Current Living Status: Children Entry Into Home: Level Entry PT Steps Into Home: 0 Prior Prior Level of Function SCALE: Activities may be completed with or without assistive devices. 8-Umudvrhgdl-xdrufin completes the activity by him/herself with no assistance from a helper. 5-Set-up or Clean-up Assistance-helper sets up or cleans up; patient completes activity. [place] assists only prior to or following the activity. 4-Supervision or Touching Assistance-helper provides verbal cues and/or touching/steadying and/or contact guard assistance as patient completes activity. Assistance may be provided throughout the activity or intermittently. 3-Partial/Moderate Assistance-helper does LESS THAN HALF the effort. [place] lifts, holds or supports trunk or limbs, but provides less than half the effort. 2-Substantial/Maximal Assistance-helper does MORE THAN HALF the effort. [place] lifts or holds trunk or limbs and provides more than half the effort. 0-Eusayyybu-hpukug does ALL the effort. Patient does none of the effort to complete the activity. Or, the assistance of 2 or more helpers is required for the patient to complete the activity. If activity was not attempted, code reason: 7-Patient Refused. 9-Not Applicable-not attempted and the patient did not perform the activity before the current illness, exacerbation or injury. 10-Not Attempted due to Environmental Limitations-(lack of equipment, weather restraints, etc.). 88-Not Attempted due to Medical Conditions or Safety Concerns. Bed Mobility: 6 Transfers (B,C,W/C): 6 Gait: 6 Stairs: 6 Indoor Mobility (Ambulation): Independent Stairs: Independent Prior Devices Use: None Prior Device Use: Prior to COVID, patient was I with all ADLs and did not use any AD PT Evaluation-Current Subjective Patient reports pain at 4/10 in her wound. Agreeable to PT treatment. Objective Patient Orientation: Person, Place, Time, Situation Attachments: Fernandez Catheter, IV wound vac ROM/Strength ROM Lower Extremities Patient demonstrates significant loss of AROM bilaterally however in bilateral Hips and knees WFLs to PROM. Bilateral ankle plantarflexion contractures L > R at ~ 35 and 25 degrees respectively. Neuromuscular (Tone, Coordination, Reflexes) Increased tone in bilateral ankles. Coordination impaired due to prolonged bedrest however will need further assessment. Sensory Vision: Wears Glasses Hearing: Functional Sensation Right Lower Extremit: Intact Sensation Left Lower Extremity: Intact Transfers Roll Left & Right (QC): 3 Sit to Lying (QC): 3 Lying to Sitting/Side of Bed(Q: 3 Sit to Stand (QC): 1 Chair/Kza-tn-Jhvdg Xfer(QC): 1 Toilet Transfer (QC): 1 Car Transfer (QC): 1 Gait Does the Patient Walk?: No and Walking Goal IS indicated Mode of Locomotion: Both Anticipated Mode of Locomotion: Both Walk 10 feet (QC): 88 Walk 50 ft with 2 Turns(QC): 88 Walk 150 ft (QC): 88 Walking 10ft/uneven surface-QC: 88 Wheelchair Training Does the Pt Use a Wheelchair?: Yes Distance: 150 Wheel 50 ft with 2 turns (QC): 4 Wheel 150 ft (QC): 3 Type of Wheelchair: Manual Stairs #of Steps: 0 1 Step (curb) (QC): 88 4 Steps (QC): 88 12 Steps (QC): 88 Balance Sitting Static: Good Sitting Dynamic: Good Standing Static: Poor Standing Dynamic: Poor Picking up an Object (QC): 88 Assessment/Needs Patient tolerated treatment fair. Treatment performed with OT as patient required 2 persons for safe transfer and skills of both disciplines regarding transfers, toileting and showering, mobility and transfers. Patient performed all observed bed mobility with min A and all transfers with total dependence. She was able to minimally bear weight through her bilateral LEs, however due to Plantarflexion contractures she was was unable to assist with any of the transfer. Patient was transferred to the W/C and was able to propel w/c 150 feet with min A and verbal cues for safety, with additional person to guide IV pole with wound vac. Patient performed LE therapeutic exercise as listed. Patient was then transferred to shower chair and performed bathing in the shower room with OT, while PT assisted with necessary mobility. Patient transferred to bed with total dependent. Patient in bed post treatment with all needs met, nursing notified, call light in hand and nurse in the room. Rehab Potential: Fair Equipment Needs At this time the will need a left leg rest for the w/c as it was provided by a previous facility sans left leg rest. She may need a BSC. However patients house was setup for her father to be handicapped accessible when he was involved in a MCA. PT Short Term Goals Short Term Goals Time Frame: Apr 20, 2021 Roll Left & Right: 4 Sit to lyin Lying to sitting on side of be: 4 Sit to stand: 3 Chair/xfc-nq-wfreb transfer: 3 Toilet transfer: 3 Car transfer: 3 Walk 10 feet: 2 Walk 50 feet with two turns: 1 Walk 150 feet: 1 Does pt use a wc or scooter: Yes Wheel 50ft w/2 turns: 5 Wheel 150 feet: 5 Type: Manual PT Substation Electrician Goals [facility] Goals PT Substation Electrician Goals Time Frame: May 18, 2021 Roll Left & Right (QC): 6 Sit to Lying (QC): 6 Lying-Sitting on Side/Bed(QC): 6 Sit to Stand (QC): 4 Chair/Ary-fm-Mwtfo Xfer(QC): 4 Toilet Transfer (QC): 4 Car Transfer (QC): 4 Does the Patient Walk: Yes Walk 10 feet (QC): 3 Walk 50ft with 2 Turns (QC): 3 Walk 150 ft (QC): 3 Walking 10ft on Uneven Surface: 3 1 Step (curb) (QC): 2 4 Steps (QC): 2 12 Steps (QC): 88 Picking up an Object (QC): 3 Does the Pt use WC or Scooter?: Yes Wheel 50 feet with 2 turns (QC: 6 Type: Manual Wheel 150 feet: 6 Type: Manual (6) PT Plan Problem List Problem List: Activity Tolerance, Functional Strength, Safety, Balance, Gait, Transfer, Bed Mobility, ROM Treatment/Plan Treatment Plan: Continue Plan of Care Treatment Plan: Bed Mobility, Education, Functional Activity John Paul, Functional Strength, Group Therapy, Gait, Safety, Therapeutic Exercise, Transfers Treatment Duration: May 18, 2021 Frequency: At least 5 of 7 days/Wk (IRF) Estimated Hrs Per Day: 1.5 hours per day Patient and/or Family Agrees t: Yes Safety Risks/Education Patient Education: Transfer Techniques, Reviewed Precautions Teaching Recipient: Patient Teaching Methods: Demonstration, Discussion Response to Teaching: Verbalize Understanding, Return Demonstration Discharge Recommendations Target Placement Unsure at this time Time/GCodes Time In: 915 Time Out: 1025 Total Billed Treatment Time: 65 Total Billed Treatment Visit, Boy dupree, FA (2), Ex, W/C; PT/OT cotreat from 9:35-10:35, with PT eval from 9:15-9:25 JAYME KHANNA PT Apr 06, 2021 11:15
--- NOTE | 2021-04-06 11:33 | Occupational Therapy Eval ---
OT Evaluation-General/PLF Medical Diagnosis Admission Date Apr 06, 2021 at 09:52 Medical Diagnosis: sepsis Onset Date: Mar 28, 2021 Therapy Diagnosis Therapy Diagnosis: Debility, impaired adls/iadls, balance, endurance Precautions Precautions/Isolations: Contact Isolation, Fall Prevention, Pressure Ulcer Referral Physician: chance Henry Reason: Evaluation/Treatment Medical History Additional Medical History Post covid syndrome, chronic indwelling catheter, sacral wound, NIDDM Current History Pt. with significant debility d/t post-covid syndrome. She was most recently at a local custodial post stays at [place] and [facility]. She has been non- ambulatory since October and states she has been unable to stand. Pt. says she was able to regain bed mobility and sitting balance while at custodial. She reports that since October she has only gotten dressed one time. She has not taken any showers and instead completed bed level sponge baths with assistance from staff. She currently has a wound vac on sacrum due to pressure ulcer. Reviewed History: Yes Social History Home: Shelter ADL-Prior Level of Function SCALE: Activities may be completed with or without assistive devices. 3-Einkvajinj-modahts completes the activity by him/herself with no assistance from a helper. 5-Set-up or Clean-up Assistance-helper sets up or cleans up; patient completes activity. [place] assists only prior to or following the activity. 4-Supervision or Touching Assistance-helper provides verbal cues and/or touching/steadying and/or contact guard assistance as patient completes activity. Assistance may be provided throughout the activity or intermittently. 3-Partial/Moderate Assistance-helper does LESS THAN HALF the effort. [place] lifts, holds or supports trunk or limbs, but provides less than half the effort. 2-Substantial/Maximal Assistance-helper does MORE THAN HALF the effort. [place] lifts or holds trunk or limbs and provides more than half the effort. 4-Nvlkzreen-dppwuh does ALL the effort. Patient does none of the effort to complete the activity. Or, the assistance of 2 or more helpers is required for the patient to complete the activity. If activity was not attempted, code reason: 7-Patient Refused. 9-Not Applicable-not attempted and the patient did not perform the activity before the current illness, exacerbation or injury. 10-Not Attempted due to Environmental Limitations-(lack of equipment, weather restraints, etc.). 88-Not Attempted due to Medical Conditions or Safety Concerns. Self Care: Dependent Functional Cognition: Independent OT Current Status Subjective Pt excited but also slightly apprehensive about coming to inpatient rehab. Treatment performed with PT as patient required 2 people for safe transfer and skills of both disciplines regarding transfers, toileting and showering, mobility and transfers Appearance Pt left in sidelying for pressure relief on buttocks, all needs within reach. Mental Status/Objective Patient Orientation: Person, Place, Time, Situation Attachments: Drains, Fernandez Catheter, IV, Other-See Comments Current Hearing Aids: No Dentures/Partials: No Hand Dominance: Right Upper Extremity ROM RUE: WFL LUE shoulder: ~3/4 AROM, Impaired finger opposition, Unable to make fist Upper Extremity Coordination Impaired, some Low tone wound vac ADL-Treatment Eating (QC): 5 Oral Hygiene (QC): 4 Shower/Bathe Self (QC): 1 Upper Body Dressing (QC): 2 Lower Body Dressing (QC): 1 On/Off Footwear (QC): 1 Toileting Hygiene (QC): 1 Shower performed; 100% completed in sitting as pt not safe to perform at prior function (standing). Dependent to wash Buttocks while in sidelying post shower. Wound vac disconnected prior to task, wound RN to be in later this am to change. Pt fatigues easily with task and requires several rest breaks. Assist needed to wash below knees due to impaired sitting balance, strength, and flexibility. As fatigue worsens, pt observed to list Left. Able to self correct but unable to sustain. Requires trunk/back support throughout. Dependent to don radha socks. LB clothing not donned at this time secondary to wound vac and several episodes of bowel incontinence. Pt would be dependent to thread over feet and require a second person to assist with clothing management in standing. Education OT Patient Education: Correct positioning, Energy conservation, Modified ADL techniques, Progress toward Goal/Update tx plan, Purpose of tx/functional activities, Rehab process, Safety issues, Transfer techniques, Use of adapted equipment Teaching Recipient: Patient Teaching Methods: Demonstration, Discussion Response to Teaching: Verbalize Understanding OT Short Term Goals Short Term Goals Time Frame: Apr 20, 2021 Eatin Oral hygiene: 5 Toileting hygiene: 2 Shower/bathe self: 2 Upper body dressin Lower body dressin Putting on/taking off footwear: 2 OT Satellite Manager Goals Satellite Manager Goals Time Frame: May 04, 2021 Eating (QC): 6 Oral Hygiene (QC): 5 Toileting Hygiene (QC): 4 Shower/Bathe Self (QC): 4 Upper Body Dressing (QC): 5 Lower Body Dressing (QC): 4 On/Off Footwear (QC): 4 1=Demonstrate adherence to instructed precautions during ADL tasks. 2=Patient will verbalize/demonstrate understanding of assistive devices/modifications for ADL. 3=Patient will improve strength/tolerance for activity to enable patient to perform ADL's. OT Education/Plan Problem List/Assessment Assessment: Decreased Activ Tolerance, Decreased UE Strength, Dependent Transfers, Impaired Bed Mobility, Impaired Coordination, Impaired Funct Balance, Impaired I ADL's, Impaired Self-Care Skills, Restricted Funct UE ROM Discharge Recommendations Plan/Recommendations: Continue POC Comment continue to assess Treatment Plan/Plan of Care Patient would benefit from OT for education, treatment and training to promote independence in ADL's, mobility, safety and/or upper extremity function for ADL's. Plan of Care: ADL Retraining, Functional Mobility, Group Exercise/Act as Ind, UE Funct Exercise/Act, UE Neuromus Re-Ed/Coord, W/C Management Training Treatment Duration: May 04, 2021 Frequency: At least 5 of 7 days/Wk (IRF) Estimated Hrs Per Day: 1.5 hours per day Agreement: Yes Rehab Potential: Fair Time/GCodes Start Time: 09:25 Stop Time: 10:25 Total Time Billed (hr/min): 60 Billed Treatment Time 1 visit, EVH (10 min) ADLx3 (50 min) Co-treat for 50 min ([id number]) Latoya Becker OT Apr 06, 2021 11:33
[2021-04-06] MEDS ORDERED: MICONAZOLE NITRATE 2% CRM 30 GM TP PRN (12:30)
[2021-04-06] MEDS ORDERED: RT-ALBUTEROL SULF 2.5 MG/3 ML PRE-MIX VIAL IH PRN (12:30)
[2021-04-06] MEDS ORDERED: BALSAM PERU TP SCH (12:30)
[2021-04-06] MEDS ORDERED: CASTOR OIL TP SCH (12:30)
[2021-04-06] MEDS ORDERED: ACETAMINOPHEN 325 MG TABLET PO PRN (12:30)
[2021-04-06] MEDS ORDERED: LOPERAMIDE 2 MG (IMODIUM) TABLET PO SCH (13:00)
--- NOTE | 2021-04-06 13:22 | PM&R Post Admission Assessment ---
PM&R HP Date of Visit: Apr 06, 2021 Time of Visit: 13:00 History of Present Illness CC: Post COVID syndrome with debility, decubitus ulcer of coccyx and severe anemia HPI: This is a previously healthy but overweight 36yoWF who presents to the IRF following severe sepsis episode due to UTI and decubitus ulcer infection with confirmed osteomyelitis who presents to the IRF in need of aggressive therapy in order to return to independent living with her family at home. 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 In-dwelling thornton due to immobile state will be maintained for now. Depression and apathy considering hospitalized since November with COVID resulting in [place] stay then went to residential but has improved since I increased Zoloft to 100mg and added Effexor. Loose stools are improved with Questran and Imodium. She has lost 100# since COVID. Past Wlxopqo-Lfedzn-Ccgytx Hx Past Med/Social Hx: Reviewed Nursing Past Med/Soc Hx, Reviewed and Corrections made Patient Social History Marrital Status: Employed/Student: unemployed Alcohol Use: Denies Use Smoking Status: Never a Smoker Past Medical History COVID 11/2020 Neurological: Neuropathy Musculoskeletal: Chronic Back Pain Endocrine: Diabetes, Non-Insulin dep Psychosocial: Depression Family History Other Conditions/Hx Prior Level of Function Bed Mobility: 6 Transfers: 6 Gait: 6 Stairs: 6 Indoor Mobility (Ambulation): Independent Stairs: Independent Prior Devices Use: None Prior to COVID, patient was I with all ADLs and did not use any AD Self Care: Dependent Functional Cognition: Independent Current Level of Fuctioning Roll Left to Right: 3 Sit to Lyin Lying to Sitting/Side of Bed: 3 Sit to Stand: 1 Chair/Qep-rc-Kudgy Xfer: 1 Car Transfer: 1 Does the Patient Walk: No and Walking Goal IS indicated Mode of Locomotion: Both Anticipated Mode of Locomotion: Both Walk 10 feet: 88 Walk 50 ft with 2 Turns: 88 Walk 150 ft: 88 Walking 10ft on uneven surface: 88 Does the Pt Use a Wheelchair: Yes Wheelchair Distance: 150 Wheel 50 ft with 2 turns: 4 Wheel 150 ft: 3 Type of Wheelchair: Manual #of Steps: 0 1 Step (curb): 88 4 Steps: 88 12 Steps: 88 Picking up an Object: 88 Eatin Oral Hygiene: 4 Shower/Bathe Self: 1 Upper Body Dressin Lower Body Dressin On/Off Footwear: 1 Toileting Hygiene: 1 PM&R Allergy/Meds/Data Review Allergies Coded Allergies: No Known Drug Allergies (Unverified , 03/28/21) Home Medications Scheduled Apixaban (Eliquis), 5 MG PO BID, (Reported) Aspirin (Aspirin), 81 MG PO DAILY, (Reported) Atenolol (Atenolol), 25 MG PO BID, (Reported) Atorvastatin Calcium (Atorvastatin Calcium), 40 MG PO HS, (Reported) Balsam [place] Oil (Venelex Ointment), 1 APPLIC TP UD, (Reported) Collagenase (Santyl), 1 APPLIC TP BID, (Reported) Ergocalciferol (Vitamin D2) (Vitamin D2), 1,250 MCG PO MON, (Reported) Ferrous Sulfate (Ferrous Sulfate), 325 MG PO DAILY, (Reported) Hydrocodone/Acetaminophen (Hydrocodone-Acetamin 7.5-325), 1 EACH PO QID, (Reported) Lactobacillus Acidophilus/Pect (Acidophilus-Pectin Capsule), 1 EACH PO BID, (Reported) Loperamide HCl (Ultra A-D), 2 MG PO DAILY, (Reported) Melatonin (Melatonin), 5 MG PO HS, (Reported) Mesalamine (Pentasa), 250 MG PO TID, (Reported) Multivitamin (Multivitamin), 1 EACH PO DAILY, (Reported) Oxybutynin Chloride (Oxybutynin Chloride), 5 MG PO TID, (Reported) Sertraline HCl (Sertraline HCl), 50 MG PO DAILY, (Reported) Scheduled PRN Acetaminophen (Tylenol), 650 MG PO Q4H PRN for PAIN-MILD (1-4), (Reported) Albuterol Sulfate (Proair Hfa), 2 PUFF IH Q6H PRN for SHORTNESS OF BREATH, (Reported) Miconazole Nitrate (Antifungal Cream), 1 APPLIC TP Q8H PRN for YEAST, (Reported) Naloxone HCl (Narcan), 1 SPRAYS NA UD PRN for OVERDOSE, (Reported) Ondansetron (Ondansetron Odt), 4 MG PO Q8H PRN for NAUSEA/VOMITING-1ST LINE, (Reported) Current Medications Current Medications Reviewed Review of Systems Constitutional: see HPI, malaise, weakness EENTM: no symptoms reported Respiratory: dyspnea on exertion Cardiovascular: no symptoms reported Gastrointestinal: no symptoms reported Genitourinary: other (catheter) Musculoskeletal: back pain Skin: see HPI Psychiatric/Neurological: Anxiety, Depressed All Other Systems Reviewed Negative Unless Noted: Yes Physical Exam Physical Exam Vital Signs Capillary Refill : Height, Weight, BMI Height: '" Weight: lbs. oz. kg; 32.94 BMI Method: General Appearance: No Apparent Distress, WD/WN, Chronically ill, Other (pale, chronically ill) Eyes: Bilateral Eye Normal Inspection, Bilateral Eye PERRL HEENT: PERRL/EOMI, Normal ENT Inspection, Pharynx Normal Neck: Full Range of Motion, Normal Inspection, Non Tender, Supple, Carotid Bruit Respiratory: Chest Non Tender, Lungs Clear, Normal Breath Sounds, No Accessory Muscle Use, No Respiratory Distress Cardiovascular: Regular Rate, Rhythm, No Edema, No Gallop, No JVD, No Murmur, Normal Peripheral Pulses Gastrointestinal: Normal Bowel Sounds, No Organomegaly, No Pulsatile Mass, Non Tender, Soft Back: Normal Inspection, No CVA Tenderness, No Vertebral Tenderness Extremity: Normal Capillary Refill, Normal Inspection, Normal Range of Motion, Non Tender, No Calf Tenderness, No Pedal Edema Neurologic/Psychiatric: Alert, Oriented x3, No Motor/Sensory Deficits, kaiawhina II- XII Norm as Tested, Depressed Affect, Motor Weakness (3/5 upper 1/5 lower) Skin: Normal Color, Warm/Dry, Other (coccyx decubitus ulcer with wound vac) Lymphatic: No Adenopathy PM&R Medical Assessment & Plan REHAB/MEDICAL ASSESSMENT AND PLAN: REHAB IMPAIRMENT GROUP: 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 ETIOLOGIC DIAGNOSIS: 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 The comorbidities that impact the patients function and/or functional outcome by: severe debility for past 3 months post COVID, weight loss 100#, Thornton, depression REHAB PLAN: The patient is being admitted to our comprehensive inpatient rehabilitation facility and can tolerate the intensity of service consisting of at least: 180 minutes of therapy a day, 5 out of 7 days a week Rehab treatment will consist of: PT OT will focus on regaining strength with aggressive therapy in order to return to independence The patient/family has a good understanding of our discharge process and will benefit from an interdisciplinary inpatient rehabilitation program. The patient has potential to make improvement and is in need of at least two of the following multidisciplinary therapies including but not limited to physical, occupational, speech, and prosthetics and orthotics. Additionally the patient will need services from respiratory, nutritional services, wound care, psychology, etc. (Customize this to each patient). Given the patients complex condition and risk of further medical complications, rehabilitation services cannot be safely or effectively provided at a lower level of care such as a fpc facility. BARRIERS TO DISCHARGE: severe weakness with wound ESTIMATED LOS: 21 days DISPOSITION: Home RELEVANT CHANGES SINCE PREADMISSION SCREENING: I have compared the patients medical and functional status at the time of the preadmission screening and there are: no changes PROGNOSIS: Good REHABILITATION GOALS: 1. PT OT will focus on regaining strength with aggressive therapy in order to return to independence All the above goals were reviewed with the patient and he/she is in agreement. By signing this document, I acknowledge that I have personally performed a full physical examination on this patient within 24 hours of admission to this inpatient rehabilitation facility and have determined the patient to be able to tolerate the above course of treatment at an intensive level for a reasonable period of time. I will be completing a detailed individualized Plan of Care for this patient by day #4 of the patients stay based upon the Preadmission Screen, the Post-Admission Evaluation, and the therapy evaluations. Admission Dx/Comorbidities: (1) Post covid-19 condition, unspecified Status: Chronic ICD Codes: U09.9 - Post COVID-19 condition, unspecified (2) Sacral decubitus ulcer, stage IV Status: Chronic ICD Codes: L89.154 - Pressure ulcer of sacral region, stage 4 (3) Severe sepsis Status: Acute ICD Codes: A41.9 - Sepsis, unspecified organism; R65.20 - Severe sepsis without septic shock (4) UTI (urinary tract infection) ICD Codes: N39.0 - Urinary tract infection, site not specified Assessment/Plan Assessment and Plan Assess & Plan/Chief Complaint Assessment: Post Covid with deconditioning s/p severe sepsis Diarrhea Sacral decubitus ulcer Hypokalemia Anemia previous transfusion Anxiety and Depression Thornton catheter 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 Plan: IV abx Wound vac PT OT Depression meds OAC TERRA EDWARDS DO Apr 06, 2021 13:22
--- NOTE | 2021-04-06 14:10 | Wound Care Assessment ---
Wound Care Assessment Date Seen by Provider: Apr 06, 2021 Time Seen by Provider: 12:00 Chief Complaint Stage 4 pressure ulcer sacrum with acute osteomyelitis STEVEN Diehl is a pleasant young lady who had a severe case of COVID-19 resulting in subsequent stage 4 pressure ulceration with acute osteomyelitis. She presented to my office prior to hospital admission from a local nursing facility. In my office she was hypotensive, febrile and with N/V. She was referred to the emergency room for admission. She was admitted to the ICU with severe sepsis and required broad spectrum antibiotics, pressure support and aggressive rehydration. Bone culture and biopsy obtained along with wound culture. These confirmed Pseudomonas infection (also in urine) and acute osteomyelitis. She is greatly improved from admission and is now admitted to rehab for strengthening and continued wound care and IV antibiotics. On initial exam she did have a piece of bone that flaked off which was obtained for biopsy/culture. The underlying bone did not appear necrotic to myself. Surgery also did not deem necessary for ariel debridement. Today, placement of veraflow wound vac with claims representative present to assist in placement. Her wound today is greatly improved (see assessment below). Bone is still minimally exposed and not n ecrotic. Size of wound greatly improved from admit. She is on appropriate targeted antibiotic therapy for underlying Pseudomonas at an appropriate dosing regimen for sacral osteomyelitis. She will need to continue for at least 8 weeks of antibiotics. I am quite pleased with her progress and look forward to following along in her wound care weekly while wound vac necessary. Past Medical History: Admits Diabetes Type II, Admits Heart Disease Review of Systems General: Fatigue Neurological: Weakness Exam Capillary Refill : General Appearance: WD/WN, no apparent distress, obese Neck: full range of motion Respiratory: no respiratory distress, no accessory muscle use Back: normal inspection Extremities: normal range of motion Skin: normal color, warm/dry Skin Problem Location: torso Skin Character: other (Wound assessment: 3.9x3.5x3.6 cm with tunneling at 10 o'clock 3.0 cm at most, tunneling at 9 o'clock 1.8 cm. Bone is minimally exposed and non-necrotic. Drainage is large and serosanguinous and without odor, margins show epibole, granulation is large and pink, necrotic is small and slough, epithelialization is medium. ) Assessment/Plan/Dx Assessment: 1. Post COVID 19 stage 4 sacral pressure ulcer 2. Acute pseudomonal osteomyelitis 3. DM2 4. PEM 5. Generalized weakness Plan: 1. Targeted antibiotic therapy for 8 weeks. Current dosing of Cefepime juamna ropriate. Defer changes to primary's capable hands if needed in future. 2. Appropriate off loading per turning and bedding 3. Veraflow wound vac with Vashe 34 cc, vac 2 hours, dwell 6 minutes. 4. Glycemic control for speed of wound healing. Defer diabetic changes to primary 5. High protein diet/supplements as indicated. 6. Increased strengthening per rehab personnel. ANKIT BERNABE MD Apr 06, 2021 14:10
--- NOTE | 2021-04-06 14:15 | ST Cognitive Linguistic Eval ---
Speech Evaluation-General Medical Diagnosis Severe Sepsis, UTI, Sacral ulcer, Post COVID Onset Date: Nov 15, 2020 Therapy Diagnosis Therapy Diagnosis: Cognitive-communication Referral Referring Physician: Dr. Cardoso Medical History Reviewed History: Yes Social History Current Living Status: Children Speech PLF-Current Status Prior Level of Function Patient lives in the home with her children where she was independent prior to illness onset in October. Subjective Patient was pleasant and cooperative with the cognitive assessment. Language Eval: Auditory Comprehends Simple Yes/No Ques: Functional Indent/Objects Multiple Villa: Functional Ident/Pics in Multiple Villa: Functional Follows 1-Step Commands: Functional Follows Complex Directions: Functional Follows General Conversations: Functional Language Eval: Verbal Language Completes Spontaneous Greeting: Functional Produces Auto, Serial Info: Functional Imitates Simple Words/Phrases: Functional Word Finding: Functional Requests Basic Needs: Functional States Basic Personal Info: Functional Expresses Complex Ideas: Functional Objective Cognitive Domain Attention: WNL Memory: WNL Problem Solving: Functional Executive Functions: Moderate Visuospatial Skills: WNL Composite Severity Rating: WNL Clock Drawing Severity Rating: WNL Objective Formal/Standardized Tests [facility] Mental Status ([facility]) Results 29/30, within normal range of function Oral Motor/Speech Production Within Normal Limits Impression Patient is a pleasant 36 y/o female who was admitted to the ARU due to critical illness myopathy. The patient was initially admitted to the hospital in October of 2020 with COVID. Since that time she has been recovering due to sepsis onset. The patient was given the SLUMS with a score of 29/30 obtained. This score is within the normal range of function and does not indicate the need for further ST services at this time. Speech Patient Assess Expression of Ideas/Wants: Expression (4) Understanding Verbal Content: Understands (4) Brief Interview-Mental Status: Yes Repetition of Three Words: Three (3) Temporal Orientation: Year: Correct (3) Temporal Orientation: Month: Accurate within 5 days(2) Temporal Orientation: Day: Correct (1) Recall : Wear to say "Sock": Yes, no cue required (2) Recall : Color: Yes, no cue required (2) Recall : Bed: Yes, no cue required (2) Memory/Recall Ability: Current season, That he or she is in a hsp/hsp unit Speech-Plan Patient/Family Goals Patient/Family Goals: Patient plans on returning to her prior living arrangement upon discharge. Treatment Plan Speech Therapy Treatment Plan: Discontinue ST Treatment Duration: Apr 06, 2021 Frequency: 1 time per week Estimated Hrs Per Day: .25 hour per day Rehab Potential: Fair Barriers to Learning: Patient's medical status. Pt/Family Agrees to Plan: Yes Safety Risks/Education Teaching Recipient: Patient Teaching Methods: Discussion Response to Teaching: Verbalize Understanding Education Topics Provided: Safety within her room, communication of wants/needs Time Speech Therapy Time In: 12:15 Speech Therapy Time Out: 12:30 Total Billed Time: 15 Billed Treatment Time 1, CARLOS AGUILAR [address] ST Apr 06, 2021 14:15
--- NOTE | 2021-04-06 14:44 | Therapy Group Daily Note ---
Therapy Daily Group Note Patient Education Topic Fall Prevention, Home Safety, Other List Below (balance) Exercises LE Seated Exercise, UE Exercise Session Ratio (pt:therapist): 3:1 Goal of Session: Education on ARU Expectations, Other (list) (balance and fall prevention) Goal Met for this Session: Yes Pt Benefit of Group: Increased Functional Safety, Socialization Other/Notes Patient in bed pre tx, transferred to mod to mac assist and transported to the common area of rehab for group therapy. Pt. sat at table to eat lunch as group began. Patient with weak voice introduced herself and shared where she is from and her favorite Thanksgiving dessert : jahaira escalante. Patients then participated in a group discussion, led by therapists about home safety, balance, safety strategies. Patients directed the others to do an exercise, which they had on a card in hand. Patient was transported back to room and transferred to bed with nurse call, phone, tray, all needs met. Pt. had poor tolerance for group ie sitting and weak and unable to fully participate in exercises. Start Time: 13:00 Stop Time: 14:00 Total Billed Treatment Time: 60 Total Billed Treatment 1,[facility] KRISSY SHEPHERD INSULATION ESTIMATOR Apr 06, 2021 14:44
[2021-04-06] MEDS ORDERED: FLU QUADRIvalent (3YOA+) 60 mcg/0.5 ml 2021-22(AFLURIA) IM ONE (15:15)
[2021-04-06] MEDS: HYDROcodone/APAP 7.5 MG/325 MG (LORTAB, LORCET PLUS) TABLET PO SCH ×3 (16:30→21:48)
[2021-04-06] MEDS: OXYBUTYNIN (DITROPAN) 5 MG TAB PO SCH ×2 (16:30→21:49)
[2021-04-06] MEDS: NYSTATIN CREAM (MYCOSTATIN) 30 GM TUBE TP SCH ×2 (16:30→21:57)
[2021-04-06] MEDS: MESALAMINE 250 MG (PENTASA) CAP PO SCH ×2 (16:30→21:47)
[2021-04-06] MEDS: CEFEPIME INJECTION 2,000 MG in NS (IVPB) 50 ML IV SCH ×2 (16:49→22:28)
[2021-04-06] MEDS: LACTOBACILLUS Acidoph/Bulgar 1 GM (LACTINEX) PACKET PO SCH ×2 (16:57→21:46)
[2021-04-06] MEDS: CHOLESTYRAMINE 4 GM (QUESTRAN LITE, PREVALITE) PKT PO SCH ×2 (16:57→21:54)
[2021-04-06 19:29] VITALS: BP 100/65
[2021-04-06] MEDS ORDERED: SENNA W/DOCUSATE (SENOKOT S) TABLET PO PRN (21:00)
[2021-04-06] MEDS ORDERED: SENNA W/DOCUSATE (SENOKOT S) TABLET PO SCH (21:00)
[2021-04-06] MEDS ORDERED: DOCUSATE SODIUM 100 MG (COLACE) CAP PO SCH (21:00)
[2021-04-06] MEDS: MELATONIN 10 MG TABLET PO SCH (21:47)
[2021-04-06] MEDS: APIXABAN 5 MG (ELIQUIS) TABLET PO SCH (21:47)
[2021-04-06] MEDS: ATENOLOL 25 MG (TENORMIN) TAB PO SCH (21:48)
[2021-04-06] MEDS: polyethylene glycoL POWDER 17 GM (MIRALAX) PACK PO SCH (21:54)
[2021-04-06] MEDS: COLLAGENASE 30 GM (SANTYL) TUBE TP SCH (21:57)
[2021-04-06] MEDS: MICONAZOLE 2% POWDER (DESENEX AF) 90 GM TOP SCH (21:57)
[2021-04-07] MEDS: CHOLESTYRAMINE 4 GM (QUESTRAN LITE, PREVALITE) PKT PO SCH (06:00)
[2021-04-07 06:10] LABS: BASOPHILS # (AUTO) 0.1 10^3/uL (0.0-0.1); BASOPHILS % (AUTO) 1 % (0-10); EOSINOPHILS # (AUTO) 0.4 10^3/uL (0.0-0.3); EOSINOPHILS % (AUTO) 6 % (0-10); HEMATOCRIT 29 % (35-52); HEMOGLOBIN 8.6 g/dL (11.5-16.0); LYMPHOCYTES # (AUTO) 2.5 10^3/uL (1.0-4.0); LYMPHOCYTES % (AUTO) 38 % (12-44); MEAN CORPUSCULAR HEMOGLOBIN 31 pg (25-34); MEAN CORPUSCULAR HGB CONC 30 g/dL (32-36); MEAN CORPUSCULAR VOLUME 101 fL (80-99); MEAN PLATELET VOLUME 9.3 fL (9.0-12.2); MONOCYTES # (AUTO) 0.7 10^3/uL (0.0-1.0); MONOCYTES % (AUTO) 10 % (0-12); NEUTROPHILS % (AUTO) 45 % (42-75); PLATELET COUNT 237 10^3/uL (130-400); WHITE BLOOD COUNT 6.6 10^3/uL (4.3-11.0)
[2021-04-07 06:24] LABS: ALBUMIN 2.8 GM/DL (3.2-4.5); POTASSIUM 3.6 MMOL/L (3.6-5.0)
[2021-04-07] MEDS: CEFEPIME INJECTION 2,000 MG in NS (IVPB) 50 ML IV SCH ×3 (06:24→21:55)
[2021-04-07 06:27] LABS: TOTAL PROTEIN 4.6 GM/DL (6.4-8.2)
[2021-04-07 06:29] LABS: BILIRUBIN,TOTAL 0.4 MG/DL (0.1-1.0)
[2021-04-07] MEDS: MULTIVIT W/MINERALS TAB (THERAGRAN M) PO SCH (06:29)
[2021-04-07] MEDS: LACTOBACILLUS Acidoph/Bulgar 1 GM (LACTINEX) PACKET PO SCH ×4 (06:29→21:48)
[2021-04-07] MEDS: VENlafaxine XR 75 MG (EFFEXOR XR) CAP PO SCH (06:29)
[2021-04-07 06:30] LABS: CREATININE SERUM 0.66 MG/DL (0.60-1.30)
[2021-04-07 07:30] VITALS: BP 103/59
[2021-04-07] MEDS: IRON SUCROSE 200 MG/10 ML (VENOFER) VIAL IV SCH (10:14)
[2021-04-07] MEDS: SERTRALINE 50 MG (ZOLOFT) TABLET PO SCH (10:20)
[2021-04-07] MEDS: FERROUS SULF 325 MG (IRON) TAB PO SCH (10:20)
[2021-04-07] MEDS: APIXABAN 5 MG (ELIQUIS) TABLET PO SCH ×2 (10:20→21:47)
[2021-04-07] MEDS: MESALAMINE 250 MG (PENTASA) CAP PO SCH ×3 (10:20→21:48)
[2021-04-07] MEDS: HYDROcodone/APAP 7.5 MG/325 MG (LORTAB, LORCET PLUS) TABLET PO SCH ×4 (10:21→21:48)
[2021-04-07] MEDS: ATENOLOL 25 MG (TENORMIN) TAB PO SCH ×2 (10:21→21:48)
[2021-04-07] MEDS: polyethylene glycoL POWDER 17 GM (MIRALAX) PACK PO SCH ×2 (10:21→21:54)
[2021-04-07] MEDS: fluCOnazole (DIFLUCAN) 100 MG TAB PO SCH (10:21)
[2021-04-07] MEDS: OXYBUTYNIN (DITROPAN) 5 MG TAB PO SCH ×3 (10:21→21:48)
[2021-04-07] MEDS: MICONAZOLE 2% POWDER (DESENEX AF) 90 GM TOP SCH ×2 (10:22→21:54)
[2021-04-07] MEDS: NYSTATIN CREAM (MYCOSTATIN) 30 GM TUBE TP SCH ×3 (10:22→21:54)
[2021-04-07] MEDS: COLLAGENASE 30 GM (SANTYL) TUBE TP SCH ×2 (10:23→21:54)
--- NOTE | 2021-04-07 11:17 | Physical Therapy Daily Note ---
PT Daily Note-Current Subjective States that she is doing okay. Transfers SCALE: Activities may be completed with or without assistive devices. 1-Blgmkwrike-dpeknbt completes the activity by him/herself with no assistance from a helper. 5-Set-up or Clean-up Assistance-helper sets up or cleans up; patient completes a ctivity. [place] assists only prior to or following the activity. 4-Supervision or Touching Assistance-helper provides verbal cues and/or touching/steadying and/or contact guard assistance as patient completes activity. Assistance may be provided throughout the activity or intermittently. 3-Partial/Moderate Assistance-helper does LESS THAN HALF the effort. [place] lifts, holds or supports trunk or limbs, but provides less than half the effort. 2-Substantial/Maximal Assistance-helper does MORE THAN HALF the effort. [place] lifts or holds trunk or limbs and provides more than half the effort. 6-Zxsdsfacy-uaxbal does ALL the effort. Patient does none of the effort to complete the activity. Or, the assistance of 2 or more helpers is required for the patient to complete the activity. If activity was not attempted, code reason: 7-Patient Refused. 9-Not Applicable-not attempted and the patient did not perform the activity before the current illness, exacerbation or injury. 10-Not Attempted due to Environmental Limitations-(lack of equipment, weather restraints, etc.). 88-Not Attempted due to Medical Conditions or Safety Concerns. Weight Bearing Right Lower Extremity: Right Full Weight Bearing Left Lower Extremity: Left Full Weight Bearing Patient is cleared medically to bear weight through bilateral LEs, however due to prolonged illness and bed rest, patients LE's very weak and plantarflexion contractures bilaterally Exercises Supine Ex: LE Protocol Supine Reps: 15 Assessment Current Status: Good Progress Patient did well with all exercises. PT Short Term Goals Short Term Goals Time Frame: Apr 20, 2021 Roll Left & Right: 4 Sit to lyin Lying to sitting on side of be: 4 Sit to stand: 3 Chair/zsl-xl-solze transfer: 3 Toilet transfer: 3 Car transfer: 3 Walk 10 feet: 2 Walk 50 feet with two turns: 1 Walk 150 feet: 1 Does pt use a wc or scooter: Yes Wheel 50ft w/2 turns: 5 Wheel 150 feet: 5 Type: Manual PT Tracer Clerk Goals Long-Term Goals PT Tracer Clerk Goals Time Frame: May 18, 2021 Roll Left & Right (QC): 6 Sit to Lying (QC): 6 Lying-Sitting on Side/Bed(QC): 6 Sit to Stand (QC): 4 Chair/Xvb-hz-Rrsce Xfer(QC): 4 Toilet Transfer (QC): 4 Car Transfer (QC): 4 Does the Patient Walk: Yes Walk 10 feet (QC): 3 Walk 50ft with 2 Turns (QC): 3 Walk 150 ft (QC): 3 Walking 10ft on Uneven Surface: 3 1 Step (curb) (QC): 2 4 Steps (QC): 2 12 Steps (QC): 88 Picking up an Object (QC): 3 Does the Pt use WC or Scooter?: Yes Wheel 50 feet with 2 turns (QC: 6 Type: Manual Wheel 150 feet: 6 Type: Manual (6) PT Plan Treatment/Plan Treatment Plan: Continue Plan of Care Treatment Plan: Bed Mobility, Education, Functional Activity John Paul, Functional Strength, Group Therapy, Gait, Safety, Therapeutic Exercise, Transfers Treatment Duration: May 18, 2021 Frequency: At least 5 of 7 days/Wk (IRF) Estimated Hrs Per Day: 1.5 hours per day Patient and/or Family Agrees t: Yes Time/GCodes Time In: 1105 Time Out: 1115 Total Billed Treatment Time: 10 Total Billed Treatment 1, EX x 10' JAGUAR KENNEDY PT Apr 07, 2021 11:16
--- NOTE | 2021-04-07 11:46 | PM&R Progress Note ---
Subjective HPI/CC On Admission Date Seen by Provider: Apr 07, 2021 Time Seen by Provider: 12:10 Subjective/Events-last exam 04/07/2021: Patient doing very well We will get up in chair for lunch Hemoglobin 8.6 Bowels are moving now so on verge of constipation will change Questran to as needed no pain is reported Wound VAC tolerated well Review of Systems General: Fatigue, Malaise Musculoskeletal: back pain Objective Exam Vital Signs Vital Signs Date Time Temp Pulse Resp B/P (MAP) Pulse Ox O2 Delivery O2 Flow Rate FiO2 04/07/21 21:48 95 Room Air 04/07/21 20:27 36.4 70 16 118/77 (91) Capillary Refill : General Appearance: No Apparent Distress, WD/WN, Chronically ill, Other (pale, chronically ill) HEENT: PERRL/EOMI, Normal ENT Inspection, Pharynx Normal Neck: Full Range of Motion, Normal Inspection, Non Tender, Supple, Carotid Bruit Respiratory: Chest Non Tender, Lungs Clear, Normal Breath Sounds, No Accessory Muscle Use, No Respiratory Distress Cardiovascular: Regular Rate, Rhythm, No Edema, No Gallop, No JVD, No Murmur, Normal Peripheral Pulses Gastrointestinal: Normal Bowel Sounds, No Organomegaly, No Pulsatile Mass, Non Tender, Soft Back: Normal Inspection, No CVA Tenderness, No Vertebral Tenderness Extremity: Normal Capillary Refill, Normal Inspection, Normal Range of Motion, Non Tender, No Calf Tenderness, No Pedal Edema Neurologic/Psychiatric: Alert, Oriented x3, No Motor/Sensory Deficits, registered nurse surgical services II- XII Norm as Tested, Depressed Affect, Motor Weakness (3/5 upper 1/5 lower) Skin: Normal Color, Warm/Dry, Other (coccyx decubitus ulcer with wound vac) Lymphatic: No Adenopathy Results/Procedures Lab Patient resulted labs reviewed. FIM Transfers Therapy Code Descriptions/Definitions Functional [place] Measure: 0=Not Assessed/NA 4=Minimal Assistance 1=Total Assistance 5=Supervision or Setup 2=Maximal Assistance 6=Modified [place] 3=Moderate Assistance 7=Complete IndependenceSCALE: Activities may be completed with or without assistive devices. 3-Jzgesgibha-gttlbpa completes the activity by him/herself with no assistance from a helper. 5-Set-up or Clean-up Assistance-helper sets up or cleans up; patient completes activity. [place] assists only prior to or following the activity. 4-Supervision or Touching Assistance-helper provides verbal cues and/or touching/steadying and/or contact guard assistance as patient completes activity. Assistance may be provided throughout the activity or intermittently. 3-Partial/Moderate Assistance-helper does LESS THAN HALF the effort. [place] lifts, holds or supports trunk or limbs, but provides less than half the effort. 2-Substantial/Maximal Assistance-helper does MORE THAN HALF the effort. [place] lifts or holds trunk or limbs and provides more than half the effort. 6-Qjqgdroso-lemyyn does ALL the effort. Patient does none of the effort to complete the activity. Or, the assistance of 2 or more helpers is required for the patient to complete the activity. If activity was not attempted, code reason: 7-Patient Refused. 9-Not Applicable-not attempted and the patient did not perform the activity before the current illness, exacerbation or injury. 10-Not Attempted due to Environmental Limitations-(lack of equipment, weather restraints, etc.). 88-Not Attempted due to Medical Conditions or Safety Concerns. Roll Left to Right (QC): 3 Sit to Lying (QC): 3 Sit to Stand (QC): 1 Chair/Pwv-th-Ipiib Xfer(QC): 1 Car Transfer (QC): 1 Gait Training Does the Patient Walk?: No and Walking Goal IS indicated Walk 10 feet (QC): 88 Walk 50 ft with 2 Turns(QC): 88 Walk 150 ft (QC): 88 Walking 10ft/uneven surface-QC: 88 Wheelchair Training Does the Pt Use a Wheelchair?: Yes Distance: 150 Wheel 50 ft with 2 turns (QC): 4 Wheel 150 ft (QC): 3 Type of Wheelchair: Manual Stair Training #of Steps: 0 1 Step (curb) (QC): 88 4 Steps (QC): 88 12 Steps (QC): 88 Balance Picking up an Object (QC): 88 ADL-Treatment Eating (QC): 5 Oral Hygiene (QC): 4 Shower/Bathe Self (QC): 1 Upper Body Dressing (QC): 2 Lower Body Dressing (QC): 1 On/Off Footwear (QC): 1 Toileting Hygiene (QC): 1 Assessment/Plan Assessment and Plan Assess & Plan/Chief Complaint Assessment: Post Covid with deconditioning s/p severe sepsis Diarrhea Sacral decubitus ulcer Hypokalemia Anemia previous transfusion Anxiety and Depression Fernandez catheter 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 Plan: IV abx Wound vac PT OT Depression meds OAC 04/07/2021: Wound VAC Out of bed (1) Post covid-19 condition, unspecified Status: Chronic (2) Sacral decubitus ulcer, stage IV Status: Chronic (3) Severe sepsis Status: Acute (4) UTI (urinary tract infection) TERRA EDWARDS DO Apr 07, 2021 11:46
--- NOTE | 2021-04-07 11:47 | Individualized Plan of Care ---
Individualized Plan of Care Rehab Nursing IPOC Order Admission Date Apr 06, 2021 at 09:52 Current Orders Orders Admission Order(Inpt,Obs,Sdc) (04/06/21 09:48) Yohannes Jacksonabigail (04/06/21 09:48) Sequential Compression Device (04/06/21 09:48) Real Estate Loan Processor-Inpt Rehab Con (04/06/21 09:48) Rehab Nursing Orders-Ipoc (04/06/21 09:48) Physical Therapy Rehab Orders (04/06/21 09:48) Occupational Therapy Rehab Ord (04/06/21 09:48) Speech Therapy Rehab Orders (04/06/21 09:48) Cbc With Automated Diff (04/07/21 06:00) Comprehensive Metabolic Panel (04/07/21 06:00) Precautions (Aru) (04/06/21 09:48) Weekly Weight WEEK (04/06/21 09:48) Rehab-Intensity Of Therapy (04/06/21 09:48) Initiate Admission Nursing Pro .admission (04/06/21 09:48) Alprazolam Tablet (Xanax Tablet) (04/06/21 10:00) Calcium Carbonate Chew Tablet (Antacid C (04/06/21 10:00) Diphenhydramine Tablet (Benadryl Tablet) (04/06/21 10:00) Docusate Sodium Capsule (Colace Capsule) (04/06/21 21:00) Docusate Sodium Capsule (Colace Capsule) (04/06/21 10:00) Bisacodyl Suppository (Dulcolax Supposit (04/06/21 10:00) Lactulose Oral Solution (Enulose Oral So (04/06/21 10:00) Na Phos/Na Biphos Enema (Fleet Enema Josef (04/06/21 10:00) Guaifenesin/Codeine Syrup (Robitussin Ac (04/06/21 10:00) Loperamide Tablet (Imodium Tablet) (04/06/21 10:00) Melatonin Tablet (Melatonin Tablet) (04/06/21 10:00) Polyethylene Glycol Powder Pkt (Miralax (04/06/21 21:00) Ondansetron Oral Dissolve Tab (Zofran (04/06/21 10:00) Senna S Tablet (Senokot S Tablet) (04/06/21 21:00) Code/Resuscitation (04/06/21 09:48) Transfer - Bed/Room/Location (04/06/21 09:56) Docusate Sodium Capsule (Colace Capsule) (04/06/21 21:00) Senna S Tablet (Senokot S Tablet) (04/06/21 21:00) Code/Resuscitation (04/06/21 12:27) Dressing Order (Intervention) BID (04/06/21 12:27) Midline Cap Change Q7D (04/06/21 12:27) Midline Dressing Change Q7D (04/06/21 12:27) Picc Cap(S) Change Q7D (04/06/21 12:27) Picc Dressing/Securement Devic Q7D (04/06/21 12:27) Turn And Reposition Q2HR (04/06/21 12:27) Weight Bearing As Tolerated (04/06/21 12:27) Wound V.A.C Q4hr Inspection-St Q4HR (04/06/21 12:27) Cho 60g/M 3snack (16-2000 Romeo) (04/06/21 Lunch) (Nf) Balsam Prabha/[place] Oil (Venelex Oin (04/06/21 12:30) Acetaminophen Tablet/Caplet (Tylenol T (04/06/21 12:30) Albuterol Pre-Mix Nebs (Rt) (Proventil (04/06/21 12:30) Apixaban Tablet (Eliquis Tablet) (04/06/21 21:00) Atenolol Tablet (Tenormin Tablet) (04/06/21 21:00) Atorvastatin Tablet (Lipitor Tablet) (04/06/21 21:00) Cefepime Injection (Maxipime Injection) (04/06/21 14:00) Cholestyramine Lite Powder (Questran Lit (04/06/21 16:00) Collagenase Ointment (Santyl Ointment) (04/06/21 21:00) Ergocalciferol Capsule (Vitamin D2 Capsu (04/09/21 09:00) Ferrous Sulfate Tablet (Feosol Tablet) (04/07/21 09:00) Fluconazole Tablet (Diflucan Tablet) (04/07/21 09:00) Hydrocodone/Apap 7.5/325 Tab (Lortab 7. (04/06/21 13:00) Lactobacillus/Bulgaricus Granu (Lactinex (04/06/21 16:00) Loperamide Tablet (Imodium Tablet) (04/06/21 13:00) Melatonin Tablet (Melatonin Tablet) (04/06/21 21:00) Mesalamine Capsule (Pentasa) (Pentasa Ca (04/06/21 13:00) Miconazole 2% Powder (Phytoplex Af 2% Po (04/06/21 21:00) Miconazole Nitrate 2% Crm (Micaderm 2% C (04/06/21 12:30) Nystatin Cream (Mycostatin Cream) (04/06/21 13:00) Ondansetron Injection (Zofran Injectio (04/06/21 12:30) Ondansetron Oral Dissolve Tab (Zofran (04/06/21 12:30) Oxybutynin Tablet (Ditropan Tablet) (04/06/21 13:00) Sertraline Tablet (Zoloft Tablet) (04/07/21 09:00) Therapeutic Multivitamin Tab (Vitamins, (04/07/21 07:00) Venlafaxine Xr Capsule (Effexor Xr Capsu (04/07/21 07:00) Consult General Surgery (04/06/21 12:27) Consult Wound Care Physician (04/06/21 12:27) Rt Request For Service (04/06/21 12:27) Wound V.A.C Nursing Assessment (04/06/21 13:00) Patient Visit (04/06/21 ) Pt Eval Moderate Complexity (04/06/21 ) Functional Activities, Ea 15 (04/06/21 ) Exercise Therap, Ea 15 Min (04/06/21 ) Wheelchair Mgmt/Propulsn 15min (04/06/21 ) Patient Visit (04/06/21 ) Speech Sound Lang Comp (04/06/21 ) Treat. Speech/Lang/Voice (04/06/21 ) Wound V.A.C Application Ord/In (04/06/21 14:26) Wound V.A.C Nursing Assessment (04/06/21 14:26) Flu Quad (3yoa+) 8710-2695 (Afluria Joseph (04/06/21 15:15) Intake & Output (04/06/21 18:30) Iron Sucrose Injection (Venofer Injectio (04/07/21 09:00) Patient Visit (04/07/21 ) Exercise Therap, Ea 15 Min (04/07/21 ) Cholestyramine Lite Powder (Questran Lit (04/07/21 11:45) Rehab Nursing Orders: Ongoing Assess. of Cognitive Status, Ongoing Assess. of Function Status, Bladder Management, Bladder Scan, Bladder Training, Bowel Management, Bowel Training, Disease Management & Educaiton, DVT Prophylaxis, Fall Prevention, Fluid/Electrolyte/Nutrition Mgmt, Infection Prevention, Medication Management & Education, Management of Risks & Complications, Management of Skin Intergrity, Nutrition Management, Pain Management, Patient/ Family Support, Safety Management, Swallow Precautions, Weight Bearing Precaution, Wound Management Intensity of Therapy to be met Patient to be seen: Min.3h per day/5 of 7d PT IPOC Problem List: Activity Tolerance, Functional Strength, Safety, Balance, Gait, Transfer, Bed Mobility, ROM Treatment Plan: Continue Plan of Care Bed Mobility, Education, Functional Activity John Paul, Functional Strength, Group Therapy, Gait, Safety, Therapeutic Exercise, Transfers Treatment Duration: May 18, 2021 Frequency: At least 5 of 7 days/Wk (IRF) Estimated Hrs Per Day: 1.5 hours per day OT IPOC Problems: Decreased Activ Tolerance, Decreased UE Strength, Dependent Transfers, Impaired Bed Mobility, Impaired Coordination, Impaired Funct Balance, Impaired I ADL's, Impaired Self-Care Skills, Restricted Funct UE ROM OT Treatment, Training and Edu: Yes Plan of Care: ADL Retraining, Functional Mobility, Group Exercise/Act as Ind, U E Funct Exercise/Act, UE Neuromus Re-Ed/Coord, W/C Management Training Treatment Duration: May 04, 2021 Frequency: At least 5 of 7 days/Wk (IRF) Estimated Hrs Per Day: 1.[address] IPOC Speech Therapy Treatment Plan: Discontinue ST Treatment Duration: Apr 06, 2021 Frequency: 1 time per week Estimated Hrs Per Day: .25 hour per day Real Estate Loan Processor/Case Mgmt Real Estate Loan Processor/Case Managemen: Discharge Planning Dietitian/Refining Equipment Operator Dietitian/Refining Equipment Operator to monitor nutritional status and make changes and/or recommendations as needed and work with speech pathology on dietary upgrades as the occur. Physician IPOC Medical Issues being managed closely and that require the 24 hour availability of a physician: Complex wound post Covid with severe anemia requiring iron infusions along with osteomyelitis decubitus ulcer maintained on cefepime with severe debility will require close monitoring for decompensation Medical Issues: Bowel/Bladder Function, DVT Prophylaxis, Falls Precautions, Fluid/Electrolyte/Nutrition Balance, Infection Protection, Pain Management, Weight Bearing Precautions, Wound Care Brief Synthesis of Preadmission Screen, Post-Admission Evaluation, and Therapy Evaluations: PT and OT will focus on slow recovery with use of assistive devices in order to regain independence and ambulation Medical Prognosis: Good Anticipated Length of Stay: 21 days TERRA EDWARDS DO Apr 07, 2021 11:47
[2021-04-07 20:27] VITALS: BP 118/77
[2021-04-07] MEDS: MELATONIN 10 MG TABLET PO SCH (21:47)
[2021-04-08] MEDS: CEFEPIME INJECTION 2,000 MG in NS (IVPB) 50 ML IV SCH ×3 (06:09→21:55)
[2021-04-08] MEDS: VENlafaxine XR 75 MG (EFFEXOR XR) CAP PO SCH (06:10)
[2021-04-08] MEDS: LACTOBACILLUS Acidoph/Bulgar 1 GM (LACTINEX) PACKET PO SCH ×4 (06:10→21:49)
[2021-04-08] MEDS: MULTIVIT W/MINERALS TAB (THERAGRAN M) PO SCH (06:10)
[2021-04-08 07:30] VITALS: BP 84/52
[2021-04-08] MEDS: polyethylene glycoL POWDER 17 GM (MIRALAX) PACK PO SCH ×3 (09:36→21:33)
[2021-04-08] MEDS: fluCOnazole (DIFLUCAN) 100 MG TAB PO SCH (09:37)
[2021-04-08] MEDS: APIXABAN 5 MG (ELIQUIS) TABLET PO SCH ×2 (09:37→21:48)
[2021-04-08] MEDS: FERROUS SULF 325 MG (IRON) TAB PO SCH (09:37)
[2021-04-08] MEDS: OXYBUTYNIN (DITROPAN) 5 MG TAB PO SCH ×3 (09:37→21:48)
[2021-04-08] MEDS: MESALAMINE 250 MG (PENTASA) CAP PO SCH ×3 (09:37→21:48)
[2021-04-08] MEDS: HYDROcodone/APAP 7.5 MG/325 MG (LORTAB, LORCET PLUS) TABLET PO SCH ×4 (09:37→21:49)
[2021-04-08] MEDS: SERTRALINE 50 MG (ZOLOFT) TABLET PO SCH (09:37)
[2021-04-08] MEDS: COLLAGENASE 30 GM (SANTYL) TUBE TP SCH ×2 (09:45→21:33)
[2021-04-08] MEDS: ATENOLOL 25 MG (TENORMIN) TAB PO SCH ×2 (09:45→21:48)
[2021-04-08] MEDS: NYSTATIN CREAM (MYCOSTATIN) 30 GM TUBE TP SCH ×3 (09:45→21:55)
[2021-04-08] MEDS: MICONAZOLE 2% POWDER (DESENEX AF) 90 GM TOP SCH ×2 (09:45→21:54)
--- NOTE | 2021-04-08 11:42 | PM&R Progress Note ---
Subjective HPI/CC On Admission Date Seen by Provider: Apr 08, 2021 Time Seen by Provider: 11:45 Subjective/Events-last exam 04/08/2021: Patient doing very well Was up 4 times yesterday out of bed Loose stools only has occurred once May need to use Questran as needed Check meds labs 04/07/2021: Patient doing very well We will get up in chair for lunch Hemoglobin 8.6 Bowels are moving now so on verge of constipation will change Questran to as needed no pain is reported Wound VAC tolerated well Review of Systems General: Fatigue Musculoskeletal: back pain Objective Exam Vital Signs Vital Signs Date Time Temp Pulse Resp B/P (MAP) Pulse Ox O2 Delivery O2 Flow Rate FiO2 04/08/21 19:35 35.4 67 13 105/54 (71) 97 04/08/21 08:45 Room Air Capillary Refill : General Appearance: No Apparent Distress, WD/WN, Chronically ill, Other (pale, chronically ill) HEENT: PERRL/EOMI, Normal ENT Inspection, Pharynx Normal Neck: Full Range of Motion, Normal Inspection, Non Tender, Supple, Carotid Bruit Respiratory: Chest Non Tender, Lungs Clear, Normal Breath Sounds, No Accessory Muscle Use, No Respiratory Distress Cardiovascular: Regular Rate, Rhythm, No Edema, No Gallop, No JVD, No Murmur, Normal Peripheral Pulses Gastrointestinal: Normal Bowel Sounds, No Organomegaly, No Pulsatile Mass, Non Tender, Soft Back: Normal Inspection, No CVA Tenderness, No Vertebral Tenderness Extremity: Normal Capillary Refill, Normal Inspection, Normal Range of Motion, Non Tender, No Calf Tenderness, No Pedal Edema Neurologic/Psychiatric: Alert, Oriented x3, No Motor/Sensory Deficits, vascular manager II- XII Norm as Tested, Depressed Affect, Motor Weakness (3/5 upper 1/5 lower) Skin: Normal Color, Warm/Dry, Other (coccyx decubitus ulcer with wound vac) Lymphatic: No Adenopathy Results/Procedures Lab Patient resulted labs reviewed. FIM Transfers Therapy Code Descriptions/Definitions Functional [place] Measure: 0=Not Assessed/NA 4=Minimal Assistance 1=Total Assistance 5=Supervision or Setup 2=Maximal Assistance 6=Modified [place] 3=Moderate Assistance 7=Complete IndependenceSCALE: Activities may be completed with or without assistive devices. 8-Oknqsjruml-gurntjd completes the activity by him/herself with no assistance from a helper. 5-Set-up or Clean-up Assistance-helper sets up or cleans up; patient completes activity. [place] assists only prior to or following the activity. 4-Supervision or Touching Assistance-helper provides verbal cues and/or t ouching/steadying and/or contact guard assistance as patient completes activity. Assistance may be provided throughout the activity or intermittently. 3-Partial/Moderate Assistance-helper does LESS THAN HALF the effort. [place] lifts, holds or supports trunk or limbs, but provides less than half the effort. 2-Substantial/Maximal Assistance-helper does MORE THAN HALF the effort. [place] lifts or holds trunk or limbs and provides more than half the effort. 5-Atnnwnbnh-sornof does ALL the effort. Patient does none of the effort to complete the activity. Or, the assistance of 2 or more helpers is required for the patient to complete the activity. If activity was not attempted, code reason: 7-Patient Refused. 9-Not Applicable-not attempted and the patient did not perform the activity before the current illness, exacerbation or injury. 10-Not Attempted due to Environmental Limitations-(lack of equipment, weather restraints, etc.). 88-Not Attempted due to Medical Conditions or Safety Concerns. Roll Left to Right (QC): 3 Sit to Lying (QC): 3 Sit to Stand (QC): 1 Chair/Iat-hh-Cefjg Xfer(QC): 1 Car Transfer (QC): 1 Gait Training Does the Patient Walk?: No and Walking Goal IS indicated Walk 10 feet (QC): 88 Walk 50 ft with 2 Turns(QC): 88 Walk 150 ft (QC): 88 Walking 10ft/uneven surface-QC: 88 Wheelchair Training Does the Pt Use a Wheelchair?: Yes Distance: 150 Wheel 50 ft with 2 turns (QC): 4 Wheel 150 ft (QC): 3 Type of Wheelchair: Manual Stair Training #of Steps: 0 1 Step (curb) (QC): 88 4 Steps (QC): 88 12 Steps (QC): 88 Balance Picking up an Object (QC): 88 ADL-Treatment Eating (QC): 5 Oral Hygiene (QC): 4 Shower/Bathe Self (QC): 1 Upper Body Dressing (QC): 2 Lower Body Dressing (QC): 1 On/Off Footwear (QC): 1 Toileting Hygiene (QC): 1 Assessment/Plan Assessment and Plan Assess & Plan/Chief Complaint Assessment: Post Covid with deconditioning s/p severe sepsis Diarrhea Sacral decubitus ulcer Hypokalemia Anemia previous transfusion Anxiety and Depression Fernandez catheter 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 Plan: IV abx Wound vac PT OT Depression meds OAC 04/07/2021: Wound VAC Out of bed 04/08/2021: Out of bed Wound VAC (1) Post covid-19 condition, unspecified Status: Chronic (2) Sacral decubitus ulcer, stage IV Status: Chronic (3) Severe sepsis Status: Acute (4) UTI (urinary tract infection) TERRA EDWARDS DO Apr 08, 2021 11:42
[2021-04-08 19:35] VITALS: BP 105/54
[2021-04-08] MEDS: MELATONIN 10 MG TABLET PO SCH (21:48)
--- NOTE | 2021-04-09 05:39 | PM&R Progress Note ---
Subjective HPI/CC On Admission Date Seen by Provider: Apr 09, 2021 Time Seen by Provider: 09:00 Subjective/Events-last exam 04/09/2021: Patient doing really well Labs stable Hemoglobin 8.6 Wound VAC working well Getting ready to go the parallel bars with physical therapy 04/08/2021: Patient doing very well Was up 4 times yesterday out of bed Loose stools only has occurred once May need to use Questran as needed Check meds labs 04/07/2021: Patient doing very well We will get up in chair for lunch Hemoglobin 8.6 Bowels are moving now so on verge of constipation will change Questran to as needed no pain is reported Wound VAC tolerated well Review of Systems General: Fatigue, Malaise Objective Exam Vital Signs Vital Signs Date Time Temp Pulse Resp B/P (MAP) Pulse Ox O2 Delivery O2 Flow Rate FiO2 04/09/21 20:30 Room Air 04/09/21 20:04 36.8 66 16 99/64 (76) 99 Capillary Refill : General Appearance: No Apparent Distress, WD/WN, Chronically ill, Other (pale, chronically ill) HEENT: PERRL/EOMI, Normal ENT Inspection, Pharynx Normal Neck: Full Range of Motion, Normal Inspection, Non Tender, Supple, Carotid Bruit Respiratory: Chest Non Tender, Lungs Clear, Normal Breath Sounds, No Accessory Muscle Use, No Respiratory Distress Cardiovascular: Regular Rate, Rhythm, No Edema, No Gallop, No JVD, No Murmur, Normal Peripheral Pulses Gastrointestinal: Normal Bowel Sounds, No Organomegaly, No Pulsatile Mass, Non Tender, Soft Back: Normal Inspection, No CVA Tenderness, No Vertebral Tenderness Extremity: Normal Capillary Refill, Normal Inspection, Normal Range of Motion, Non Tender, No Calf Tenderness, No Pedal Edema Neurologic/Psychiatric: Alert, Oriented x3, No Motor/Sensory Deficits, chopper operator II- XII Norm as Tested, Depressed Affect, Motor Weakness (3/5 upper 1/5 lower) Skin: Normal Color, Warm/Dry, Other (coccyx decubitus ulcer with wound vac) Lymphatic: No Adenopathy Results/Procedures Lab Patient resulted labs reviewed. FIM Transfers Therapy Code Descriptions/Definitions Functional [place] Measure: 0=Not Assessed/NA 4=Minimal Assistance 1=Total Assistance 5=Supervision or Setup 2=Maximal Assistance 6=Modified [place] 3=Moderate Assistance 7=Complete IndependenceSCALE: Activities may be completed with or without assistive devices. 2-Zlnofmwpgg-wxisgzz completes the activity by him/herself with no assistance fr om a helper. 5-Set-up or Clean-up Assistance-helper sets up or cleans up; patient completes activity. [place] assists only prior to or following the activity. 4-Supervision or Touching Assistance-helper provides verbal cues and/or touching/steadying and/or contact guard assistance as patient completes activity. Assistance may be provided throughout the activity or intermittently. 3-Partial/Moderate Assistance-helper does LESS THAN HALF the effort. [place] lifts, holds or supports trunk or limbs, but provides less than half the effort. 2-Substantial/Maximal Assistance-helper does MORE THAN HALF the effort. [place] lifts or holds trunk or limbs and provides more than half the effort. 7-Lrscnwnyo-hwmadq does ALL the effort. Patient does none of the effort to complete the activity. Or, the assistance of 2 or more helpers is required for the patient to complete the activity. If activity was not attempted, code reason: 7-Patient Refused. 9-Not Applicable-not attempted and the patient did not perform the activity before the current illness, exacerbation or injury. 10-Not Attempted due to Environmental Limitations-(lack of equipment, weather restraints, etc.). 88-Not Attempted due to Medical Conditions or Safety Concerns. Roll Left to Right (QC): 3 Sit to Lying (QC): 3 Sit to Stand (QC): 1 Chair/Ggm-yv-Ksqki Xfer(QC): 1 Car Transfer (QC): 1 Gait Training Does the Patient Walk?: No and Walking Goal IS indicated Walk 10 feet (QC): 88 Walk 50 ft with 2 Turns(QC): 88 Walk 150 ft (QC): 88 Walking 10ft/uneven surface-QC: 88 Wheelchair Training Does the Pt Use a Wheelchair?: Yes Distance: 150 Wheel 50 ft with 2 turns (QC): 4 Wheel 150 ft (QC): 3 Type of Wheelchair: Manual Stair Training #of Steps: 0 1 Step (curb) (QC): 88 4 Steps (QC): 88 12 Steps (QC): 88 Balance Picking up an Object (QC): 88 ADL-Treatment Eating (QC): 5 Oral Hygiene (QC): 4 Shower/Bathe Self (QC): 1 Upper Body Dressing (QC): 2 Lower Body Dressing (QC): 1 On/Off Footwear (QC): 1 Toileting Hygiene (QC): 1 Assessment/Plan Assessment and Plan Assess & Plan/Chief Complaint Assessment: Post Covid with deconditioning s/p severe sepsis Diarrhea Sacral decubitus ulcer Hypokalemia Anemia previous transfusion Anxiety and Depression Fernandez catheter 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 Plan: IV abx Wound vac PT OT Depression meds OAC 04/07/2021: Wound VAC Out of bed 04/08/2021: Out of bed Wound VAC 04/09/2021: Supportive care Dramatic improvement already (1) Post covid-19 condition, unspecified Status: Chronic (2) Sacral decubitus ulcer, stage IV Status: Chronic (3) Severe sepsis Status: Acute (4) UTI (urinary tract infection) TERRA EDWARDS DO Apr 09, 2021 05:39
[2021-04-09] MEDS: MULTIVIT W/MINERALS TAB (THERAGRAN M) PO SCH (06:09)
[2021-04-09] MEDS: LACTOBACILLUS Acidoph/Bulgar 1 GM (LACTINEX) PACKET PO SCH ×4 (06:10→21:39)
[2021-04-09] MEDS: CEFEPIME INJECTION 2,000 MG in NS (IVPB) 50 ML IV SCH ×3 (06:10→21:39)
[2021-04-09] MEDS: VENlafaxine XR 75 MG (EFFEXOR XR) CAP PO SCH (06:10)
[2021-04-09] MEDS: polyethylene glycoL POWDER 17 GM (MIRALAX) PACK PO SCH ×2 (07:30→19:54)
[2021-04-09 07:48] VITALS: BP 100/59
[2021-04-09] MEDS: MESALAMINE 250 MG (PENTASA) CAP PO SCH ×3 (08:31→21:38)
[2021-04-09] MEDS: OXYBUTYNIN (DITROPAN) 5 MG TAB PO SCH ×3 (08:31→21:39)
[2021-04-09] MEDS: IRON SUCROSE 200 MG/10 ML (VENOFER) VIAL IV SCH (08:31)
[2021-04-09] MEDS: VITAMIN D2 1.25 MG (50,000 UNITS) CAP PO SCH (08:31)
[2021-04-09] MEDS: APIXABAN 5 MG (ELIQUIS) TABLET PO SCH ×2 (08:32→21:38)
[2021-04-09] MEDS: fluCOnazole (DIFLUCAN) 100 MG TAB PO SCH (08:32)
[2021-04-09] MEDS: SERTRALINE 50 MG (ZOLOFT) TABLET PO SCH (08:32)
[2021-04-09] MEDS: FERROUS SULF 325 MG (IRON) TAB PO SCH (08:32)
[2021-04-09] MEDS: ATENOLOL 25 MG (TENORMIN) TAB PO SCH ×2 (08:32→19:54)
[2021-04-09] MEDS: HYDROcodone/APAP 7.5 MG/325 MG (LORTAB, LORCET PLUS) TABLET PO SCH ×4 (08:32→21:39)
[2021-04-09] MEDS: NYSTATIN CREAM (MYCOSTATIN) 30 GM TUBE TP SCH ×3 (08:39→19:55)
[2021-04-09] MEDS: COLLAGENASE 30 GM (SANTYL) TUBE TP SCH ×2 (08:39→19:55)
[2021-04-09] MEDS: MICONAZOLE 2% POWDER (DESENEX AF) 90 GM TOP SCH ×2 (08:39→19:55)
--- NOTE | 2021-04-09 09:30 | Physical Therapy Daily Note ---
PT Daily Note-Current Subjective Patient in bed pre tx, agrees to PT, has 4/10 pain in bottom. Will be co- treating with OT due to poor patient mobility, strength, endurance, severe weakness, coordinate UE and LE with activity, safety and reduce risk of falls. Appearance Patient in bed post tx with nurse call, phone, tray, all needs met, on side with pillow support. Mental Status Patient Orientation: Person, Place, Situation Attachments: Fernandez Catheter wound vac Transfers SCALE: Activities may be completed with or without assistive devices. 5-Ordriontit-nmlogdl completes the activity by him/herself with no assistance from a helper. 5-Set-up or Clean-up Assistance-helper sets up or cleans up; patient completes activity. [place] assists only prior to or following the activity. 4-Supervision or Touching Assistance-helper provides verbal cues and/or touching/steadying and/or contact guard assistance as patient completes activity. Assistance may be provided throughout the activity or intermittently. 3-Partial/Moderate Assistance-helper does LESS THAN HALF the effort. [place] lifts, holds or supports trunk or limbs, but provides less than half the effort. 2-Substantial/Maximal Assistance-helper does MORE THAN HALF the effort. [place] lifts or holds trunk or limbs and provides more than half the effort. 8-Txmonctbe-gyamnp does ALL the effort. Patient does none of the effort to complete the activity. Or, the assistance of 2 or more helpers is required for the patient to complete the activity. If activity was not attempted, code reason: 7-Patient Refused. 9-Not Applicable-not attempted and the patient did not perform the activity before the current illness, exacerbation or injury. 10-Not Attempted due to Environmental Limitations-(lack of equipment, weather restraints, etc.). 88-Not Attempted due to Medical Conditions or Safety Concerns. Roll Left & Right (QC): 4 Sit to Lying (QC): 3 Lying to Sitting/Side of Bed(Q: 3 Sit to Stand (QC): 2 Chair/Wru-si-Buzfj Xfer(QC): 2 Mod assist for supine <-> sit and max assist for sit <-> stand and stand pivot transfers. Patient sit on the side of the bed, gets a new gown on and brief partway on, stands with max assist while OT completes dressing, then stand pivot to WC Weight Bearing Right Lower Extremity: Right Full Weight Bearing Left Lower Extremity: Left Full Weight Bearing Patient is cleared medically to bear weight through bilateral LEs, however due to prolonged illness and bed rest, patients LE's very weak and plantarflexion contractures bilaterally Exercises sit to stand x3 in parallel bars max assist for about 20 seconds each time, manually resisted leg press x10, patient eventually becomes very shaky and dizzy, O2 99%, HR 104bpm, 108/58 Treatments PT performed bed mobility and transfers, standing, functional strengthening, OT performed dressing, UE positioning and safety during activity, assisted with leg placement and positioning during leg press Assessment Current Status: Fair Progress patient very fatigued after minimal activity PT Short Term Goals Short Term Goals Time Frame: Apr 20, 2021 Roll Left & Right: 4 Sit to lyin Lying to sitting on side of be: 4 Sit to stand: 3 Chair/ejq-ow-cttmd transfer: 3 Toilet transfer: 3 Car transfer: 3 Walk 10 feet: 2 Walk 50 feet with two turns: 1 Walk 150 feet: 1 Does pt use a wc or scooter: Yes Wheel 50ft w/2 turns: 5 Wheel 150 feet: 5 Type: Manual PT Cook Box Filler Goals Mcc Goals PT Cook Box Filler Goals Time Frame: May 18, 2021 Roll Left & Right (QC): 6 Sit to Lying (QC): 6 Lying-Sitting on Side/Bed(QC): 6 Sit to Stand (QC): 4 Chair/Ihj-vw-Rgull Xfer(QC): 4 Toilet Transfer (QC): 4 Car Transfer (QC): 4 Does the Patient Walk: Yes Walk 10 feet (QC): 3 Walk 50ft with 2 Turns (QC): 3 Walk 150 ft (QC): 3 Walking 10ft on Uneven Surface: 3 1 Step (curb) (QC): 2 4 Steps (QC): 2 12 Steps (QC): 88 Picking up an Object (QC): 3 Does the Pt use WC or Scooter?: Yes Wheel 50 feet with 2 turns (QC: 6 Type: Manual Wheel 150 feet: 6 Type: Manual (6) PT Plan Problem List Problem List: Activity Tolerance, Functional Strength, Safety, Balance, Gait, Transfer, Bed Mobility, ROM Treatment/Plan Treatment Plan: Continue Plan of Care Treatment Plan: Bed Mobility, Education, Functional Activity [place], Functional Strength, Group Therapy, Gait, Safety, Therapeutic Exercise, Transfers Treatment Duration: May 18, 2021 Frequency: At least 5 of 7 days/Wk (IRF) Estimated Hrs Per Day: 1.5 hours per day Patient and/or Family Agrees t: Yes Safety Risks/Education Patient Education: Transfer Techniques, Correct Positioning, Safety Issues Teaching Recipient: Patient Teaching Methods: Demonstration, Discussion Response to Teaching: Reinforcement Needed Time/GCodes Time In: 829 Time Out: 929 Total Billed Treatment Time: 60 Total Billed Treatment 1 visit FA 60' co-treated for 60' MAURO MOORE PT Apr 09, 2021 09:30
--- NOTE | 2021-04-09 10:50 | Occupational Ther Daily Note ---
OT Current Status-Daily Note Subjective Patient in bed pre tx. Reports feelings of nausea. [place] provided, no emesis. Agreeable to treatment. Will be co-treating with PT due to poor patient mobility, strength, endurance, severe weakness, coordinate UE and LE with activity, safety and reduce risk of falls. Appearance Returned to sidelying in bed, pillows placed for pressure relief. All needs met at end of treatment. Mental Status/Objective Attachments: Drains, Fernandez Catheter, IV wound vac ADL-Treatment Therapy Code Descriptions/Definitions Functional [place] Measure: 0=Not Assessed/NA 4=Minimal Assistance 1=Total Assistance 5=Supervision or Setup 2=Maximal Assistance 6=Modified [place] 3=Moderate Assistance 7=Complete IndependenceSCALE: Activities may be completed with or without assistive devices. 5-Rlhivogdnr-dqxkpdl completes the activity by him/herself with no assistance from a helper. 5-Set-up or Clean-up Assistance-helper sets up or cleans up; patient completes activity. [place] assists only prior to or following the activity. 4-Supervision or Touching Assistance-helper provides verbal cues and/or touching/steadying and/or contact guard assistance as patient completes activity. Assistance may be provided throughout the activity or intermittently. 3-Partial/Moderate Assistance-helper does LESS THAN HALF the effort. [place] lifts, holds or supports trunk or limbs, but provides less than half the effort. 2-Substantial/Maximal Assistance-helper does MORE THAN HALF the effort. [place] lifts or holds trunk or limbs and provides more than half the effort. 6-Qeeorpjmr-bblxsx does ALL the effort. Patient does none of the effort to complete the activity. Or, the assistance of 2 or more helpers is required for the patient to complete the activity. If activity was not attempted, code reason: 7-Patient Refused. 9-Not Applicable-not attempted and the patient did not perform the activity before the current illness, exacerbation or injury. 10-Not Attempted due to Environmental Limitations-(lack of equipment, weather restraints, etc.). 88-Not Attempted due to Medical Conditions or Safety Concerns. Lower Body Dressing (QC): 1 On/Off Footwear: 1 Toileting Hygiene (QC): 1 Toilet Transfer (QC): 1 Pt supine in bed at therapy arrival. Verbalizes feelings of nausea yet unsuccessful with vomiting. Still agreeable to treatment. Mod a to sit EOB. Denies dizziness. Poor flexibility and sitting balance limits pt's ability to bend at waist to reach feet. Attempt at cross over method, yet pt with very tight hips, unable to complete. May benefit from instruction on AE in future sessions. Dependent to don brief over feet. Max a to stand/maintain balance from Physical therapy as OT managed clothing up to waist. New gown donned, fait+ si tting balance with intermittent single UE support required. Standing/LE strengthening activities performed in gym. Pt fatigues very quickly and reports feelings of dizziness/nausea throughout activities. Thus, several lengthy rest breaks needed. Only able to tolerate standing ~10-15 seconds. Pt visibly shaking towards end of treatment. BP: 108/58, HR 105, 99%. Assisted back to bed. Education OT Patient Education: Correct positioning, Energy conservation, Modified ADL techniques, Progress toward Goal/Update tx plan, Purpose of tx/functional activities, Reviewed precautions, Rehab process, Safety issues, Transfer techniques, W/C management Teaching Recipient: Patient Teaching Methods: Demonstration, Discussion Response to Teaching: Verbalize Understanding OT Short Term Goals Short Term Goals Time Frame: Apr 20, 2021 Eatin Oral hygiene: 5 Toileting hygiene: 2 Shower/bathe self: 2 Upper body dressin Lower body dressin Putting on/taking off footwear: 2 OT Taping Machine Operator Goals Half-Way Goals Time Frame: May 04, 2021 Eating (QC): 6 Oral Hygiene (QC): 5 Toileting Hygiene (QC): 4 Shower/Bathe Self (QC): 4 Upper Body Dressing (QC): 5 Lower Body Dressing (QC): 4 On/Off Footwear (QC): 4 1=Demonstrate adherence to instructed precautions during ADL tasks. 2=Patient will verbalize/demonstrate understanding of assistive devices/modifications for ADL. 3=Patient will improve strength/tolerance for activity to enable patient to perform ADL's. OT Education/Plan Problem List/Assessment Assessment: Decreased Activ Tolerance, Decreased UE Strength, Dependent Transfers, Impaired Coordination, Impaired Funct Balance, Impaired I ADL's, Impaired Self-Care Skills, Restricted Funct UE ROM Discharge Recommendations Plan/Recommendations: Continue POC Treatment Plan/Plan of Care Treatment,Training & Education: Yes Patient would benefit from OT for education, treatment and training to promote independence in ADL's, mobility, safety and/or upper extremity function for ADL's. Plan of Care: ADL Retraining, Functional Mobility, Group Exercise/Act as Ind, UE Funct Exercise/Act, UE Neuromus Re-Ed/Coord, W/C Management Training Treatment Duration: May 04, 2021 Frequency: At least 5 of 7 days/Wk (IRF) Estimated Hrs Per Day: 1.5 hours per day Agreement: Yes Rehab Potential: Fair Time/GCodes Start Time: 08:30 Stop Time: 09:30 Total Time Billed (hr/min): 60 Billed Treatment Time 1 visit, ADL x2 (30 min) FA x2 (30 min) co-treat 60 min Latoya Becker OT Apr 09, 2021 10:49
--- NOTE | 2021-04-09 12:01 | Wound Care Assessment ---
Wound Care Assessment Date Seen by Provider: Apr 09, 2021 Time Seen by Provider: 11:55 Chief Complaint Stage 4 pressure ulcer sacrum with acute osteomyelitis STEVEN Diehl is a pleasant young lady who had a severe case of COVID-19 resulting in subsequent stage 4 pressure ulceration with acute osteomyelitis. She presented to my office prior to hospital admission from a local nursing facility. In my office she was hypotensive, febrile and with N/V. She was referred to the emergency room for admission. She was admitted to the ICU with severe sepsis and required broad spectrum antibiotics, pressure support and aggressive rehydration. Bone culture and biopsy obtained along with wound culture. These confirmed Pseudomonas infection (also in urine) and acute osteomyelitis. She is greatly improved from admission and is now admitted to rehab for strengthening and continued wound care and IV antibiotics. On initial exam she did have a piece of bone that flaked off which was obtained for biopsy/culture. The underlying bone did not appear necrotic to myself. Surgery also did not deem necessary for ariel debridement. Her wound has dramatically improved with wound vac therapy and targeted antibiotics. Wound measurements continue to decrease. Vac changed today due to large BM with subsequent disruption in vac seal. If able, plan to continue veraflow vac system. Bone remains exposed on exam today but only minimally and does not appear necrotic. Wound bed appears viable. Past Medical History: Admits Diabetes Type II, Admits Heart Disease Smoking Status: Never a Smoker Alcohol Use: Denies Use Review of Systems General: Fatigue, Other (obesity) Exam Vital Signs Date Time Temp Pulse Resp B/P (MAP) Pulse Ox O2 Delivery O2 Flow Rate FiO2 04/09/21 09:00 94 Room Air 04/09/21 07:48 36.4 77 12 100/59 (73) Capillary Refill : General Appearance: WD/WN, no apparent distress Neck: full range of motion Respiratory: no respiratory distress, no accessory muscle use Skin: normal color, warm/dry Skin Problem Location: torso Skin Character: other (Wound assessment: 3.0x3.0x4.0. Tunneling at 10 o'clock and 1 o'clock now resolved. Epithelialization is medium, drainage is large and serosanguinous, granulation is large and pink, necrotic is small and slough, margins show epibole. There is some new injury inferiorly (from vac leak) but no severe maceration) Assessment/Plan/Dx Assessment: 1. Post COVID 19 stage 4 sacral pressure ulcer 2. Acute pseudomonal osteomyelitis 3. DM2 4. PEM 5. Generalized weakness Plan: 1. Targeted antibiotic therapy for 8 weeks. Defer changes to primary's capable hands if needed in future. 2. Appropriate off loading per turning and bedding 3. Veraflow wound vac with Vashe 34 cc, vac 2 hours, dwell 6 minutes. 4. Glycemic control for speed of wound healing. Defer diabetic changes to primary 5. High protein diet/supplements as indicated. 6. Increased strengthening per rehab personnel. 7. Liseth covered with hydrocolloid dressing to be changed twice weekly with wound vac changes to area of new injury. ANKIT BERNABE MD Apr 09, 2021 12:01
--- NOTE | 2021-04-09 13:39 | Occupational Ther Daily Note ---
OT Current Status-Daily Note Subjective Pt supine in bed, agreeable to treatment. Will be co-treating with PT due to poor patient mobility, strength, endurance, severe weakness, coordinate UE and LE with activity, safety and reduce risk of falls. Appearance Returned to sidelying in bed, all needs within reach. Mental Status/Objective Attachments: Drains, Fernandez Catheter, IV ADL-Treatment Therapy Code Descriptions/Definitions Functional [place] Measure: 0=Not Assessed/NA 4=Minimal Assistance 1=Total Assistance 5=Supervision or Setup 2=Maximal Assistance 6=Modified [place] 3=Moderate Assistance 7=Complete IndependenceSCALE: Activities may be completed with or without assistive devices. 4-Nwdltabsuo-qxoxcst completes the activity by him/herself with no assistance from a helper. 5-Set-up or Clean-up Assistance-helper sets up or cleans up; patient completes activity. [place] assists only prior to or following the activity. 4-Supervision or Touching Assistance-helper provides verbal cues and/or touching/steadying and/or contact guard assistance as patient completes activity. Assistance may be provided throughout the activity or intermittently. 3-Partial/Moderate Assistance-helper does LESS THAN HALF the effort. [place] lifts, holds or supports trunk or limbs, but provides less than half the effort. 2-Substantial/Maximal Assistance-helper does MORE THAN HALF the effort. [place] lifts or holds trunk or limbs and provides more than half the effort. 7-Uyejxjdtv-fcdqwz does ALL the effort. Patient does none of the effort to complete the activity. Or, the assistance of 2 or more helpers is required for the patient to complete the activity. If activity was not attempted, code reason: 7-Patient Refused. 9-Not Applicable-not attempted and the patient did not perform the activity before the current illness, exacerbation or injury. 10-Not Attempted due to Environmental Limitations-(lack of equipment, weather restraints, etc.). 88-Not Attempted due to Medical Conditions or Safety Concerns. Upper Body Dressing (QC): 3 Lower Body Dressing (QC): 1 Dressing tasks performed seated EOB. Intermittent min a for sitting balance when donning shirt overhead. Education provided on batter mixer helper use when threading LE's into pants. Mod-max a still needed due to inability to lift feet and non-slip sock getting stuck on inside of pants. Dep to manage over hips in standing. When doffing pants, Mod a for sitting balance when leaning R/L and mod a to pull below hips. Other Treatment OT/PT educated pt on slide board transfer to/from bed. Post demonstration, min a from high to low surface, mod a when returning to bed. Pt fatigues quickly during transfer and requires hands on at all times. Lengthy rest break needed after each transfer. Wound still intact post transfers. Education OT Patient Education: Correct positioning, Energy conservation, Modified ADL techniques, Progress toward Goal/Update tx plan, Purpose of tx/functional activities, Rehab process, Safety issues, Transfer techniques, Use of adapted equipment Teaching Recipient: Patient Teaching Methods: Demonstration, Discussion Response to Teaching: Verbalize Understanding, Return Demonstration, Reinforcement Needed OT Short Term Goals Short Term Goals Time Frame: Apr 20, 2021 Eatin Oral hygiene: 5 Toileting hygiene: 2 Shower/bathe self: 2 Upper body dressin Lower body dressin Putting on/taking off footwear: 2 OT Mcfp Goals Kier Operator Goals Time Frame: May 04, 2021 Eating (QC): 6 Oral Hygiene (QC): 5 Toileting Hygiene (QC): 4 Shower/Bathe Self (QC): 4 Upper Body Dressing (QC): 5 Lower Body Dressing (QC): 4 On/Off Footwear (QC): 4 1=Demonstrate adherence to instructed precautions during ADL tasks. 2=Patient will verbalize/demonstrate understanding of assistive devices/modifications for ADL. 3=Patient will improve strength/tolerance for activity to enable patient to perform ADL's. OT Education/Plan Problem List/Assessment Assessment: Decreased Activ Tolerance, Decreased UE Strength, Dependent Transfers, Impaired Bed Mobility, Impaired Coordination, Impaired Funct Balance, Impaired I ADL's, Impaired Self-Care Skills, Restricted Funct UE ROM Discharge Recommendations Plan/Recommendations: Continue POC Treatment Plan/Plan of Care Treatment,Training & Education: Yes Patient would benefit from OT for education, treatment and training to promote independence in ADL's, mobility, safety and/or upper extremity function for ADL's. Plan of Care: ADL Retraining, Functional Mobility, Group Exercise/Act as Ind, UE Funct Exercise/Act, UE Neuromus Re-Ed/Coord, W/C Management Training Treatment Duration: May 04, 2021 Frequency: At least 5 of 7 days/Wk (IRF) Estimated Hrs Per Day: 1.5 hours per day Agreement: Yes Rehab Potential: Fair Time/GCodes Start Time: 13:00 Stop Time: 13:30 Total Time Billed (hr/min): 30 Billed Treatment Time 1 visit ADL (15 min) FA (15 min) co treat for 30 min Latoya Becker OT Apr 09, 2021 13:39
--- NOTE | 2021-04-09 14:40 | Physical Therapy Daily Note ---
PT Daily Note-Current Subjective Patient in bed pre tx, agrees to PT, voices no complaints of pain, will be co- treating with OT due to poor patient mobility, strength, endurance, severe debility, coordinate UE and LE during activity, safety and reduce risk of falls. Appearance Patient in bed post tx with nurse call ,phone, tray, all needs met. Mental Status Patient Orientation: Normal For Age Attachments: Fernandez Catheter wound vac Transfers SCALE: Activities may be completed with or without assistive devices. 8-Npiqgcxskx-ihrwunr completes the activity by him/herself with no assistance from a helper. 5-Set-up or Clean-up Assistance-helper sets up or cleans up; patient completes activity. [place] assists only prior to or following the activity. 4-Supervision or Touching Assistance-helper provides verbal cues and/or touching/steadying and/or contact guard assistance as patient completes activity. Assistance may be provided throughout the activity or intermittently. 3-Partial/Moderate Assistance-helper does LESS THAN HALF the effort. Jefferson lifts, holds or supports trunk or limbs, but provides less than half the effort. 2-Substantial/Maximal Assistance-helper does MORE THAN HALF the effort. [place] lifts or holds trunk or limbs and provides more than half the effort. 7-Lzptdvabz-qfbmyv does ALL the effort. Patient does none of the effort to complete the activity. Or, the assistance of 2 or more helpers is required for the patient to complete the activity. If activity was not attempted, code reason: 7-Patient Refused. 9-Not Applicable-not attempted and the patient did not perform the activity before the current illness, exacerbation or injury. 10-Not Attempted due to Environmental Limitations-(lack of equipment, weather restraints, etc.). 88-Not Attempted due to Medical Conditions or Safety Concerns. Roll Left & Right (QC): 6 Sit to Lying (QC): 3 Lying to Sitting/Side of Bed(Q: 3 Sit to Stand (QC): 2 Patient sits to the side of the bed and starts dressing, has to stand to finish getting pants on, then performs a sliding board transfer to and then back to bed, then undresses and gets a gown on and then lays down. Weight Bearing Right Lower Extremity: Right Full Weight Bearing Left Lower Extremity: Left Full Weight Bearing Patient is cleared medically to bear weight through bilateral LEs, however due to prolonged illness and bed rest, patients LE's very weak and plantarflexion contractures bilaterally Treatments PT worked on bed mobility, supine <-> sit, standing, sliding board transfer, OT worked on dressing, assist with UE positioning and safety during activity Assessment Current Status: Fair Progress mod assist with sliding board transfer PT Short Term Goals Short Term Goals Time Frame: Apr 20, 2021 Roll Left & Right: 4 Sit to lyin Lying to sitting on side of be: 4 Sit to stand: 3 Chair/lxo-wr-uucdk transfer: 3 Toilet transfer: 3 Car transfer: 3 Walk 10 feet: 2 Walk 50 feet with two turns: 1 Walk 150 feet: 1 Does pt use a wc or scooter: Yes Wheel 50ft w/2 turns: 5 Wheel 150 feet: 5 Type: Manual PT Custodial Goals Custodial Goals PT Parking Cashier Goals Time Frame: May 18, 2021 Roll Left & Right (QC): 6 Sit to Lying (QC): 6 Lying-Sitting on Side/Bed(QC): 6 Sit to Stand (QC): 4 Chair/Kse-up-Qteak Xfer(QC): 4 Toilet Transfer (QC): 4 Car Transfer (QC): 4 Does the Patient Walk: Yes Walk 10 feet (QC): 3 Walk 50ft with 2 Turns (QC): 3 Walk 150 ft (QC): 3 Walking 10ft on Uneven Surface: 3 1 Step (curb) (QC): 2 4 Steps (QC): 2 12 Steps (QC): 88 Picking up an Object (QC): 3 Does the Pt use WC or Scooter?: Yes Wheel 50 feet with 2 turns (QC: 6 Type: Manual Wheel 150 feet: 6 Type: Manual (6) PT Plan Problem List Problem List: Activity Tolerance, Functional Strength, Safety, Balance, Gait, Transfer, Bed Mobility, ROM Treatment/Plan Treatment Plan: Continue Plan of Care Treatment Plan: Bed Mobility, Education, Functional Activity John [place], Functional Strength, Group Therapy, Gait, Safety, Therapeutic Exercise, Transfers Treatment Duration: May 18, 2021 Frequency: At least 5 of 7 days/Wk (IRF) Estimated Hrs Per Day: 1.5 hours per day Patient and/or Family Agrees t: Yes Safety Risks/Education Patient Education: Transfer Techniques, Correct Positioning, Safety Issues Teaching Recipient: Patient Teaching Methods: Demonstration, Discussion Response to Teaching: Reinforcement Needed Time/GCodes Time In: 1300 Time Out: 1330 Total Billed Treatment Time: 30 Total Billed Treatment 1 visit FA 30' co-treated for 30' MAURO MOORE PT Apr 09, 2021 14:40
[2021-04-09 20:04] VITALS: BP 99/64
[2021-04-09] MEDS: MELATONIN 10 MG TABLET PO SCH (21:38)
[2021-04-10] MEDS: VENlafaxine XR 75 MG (EFFEXOR XR) CAP PO SCH (06:20)
[2021-04-10] MEDS: LACTOBACILLUS Acidoph/Bulgar 1 GM (LACTINEX) PACKET PO SCH ×4 (06:20→20:25)
[2021-04-10] MEDS: CEFEPIME INJECTION 2,000 MG in NS (IVPB) 50 ML IV SCH ×3 (06:20→22:52)
[2021-04-10] MEDS: MULTIVIT W/MINERALS TAB (THERAGRAN M) PO SCH (06:20)
[2021-04-10 07:57] VITALS: BP 89/53
--- NOTE | 2021-04-10 08:45 | PM&R Progress Note ---
Subjective HPI/CC On Admission Date Seen by Provider: Apr 10, 2021 Time Seen by Provider: 09:00 Subjective/Events-last exam 04/10/2021: Patient doing well No major concerns PICC line dysfunction will be assessed Foot drop will be addressed with AFO Incontinent of bowel last night 04/09/2021: Patient doing really well Labs stable Hemoglobin 8.6 Wound VAC working well Getting ready to go the parallel bars with physical therapy 04/08/2021: Patient doing very well Was up 4 times yesterday out of bed Loose stools only has occurred once May need to use Questran as needed Check meds labs 04/07/2021: Patient doing very well We will get up in chair for lunch Hemoglobin 8.6 Bowels are moving now so on verge of constipation will change Questran to as needed no pain is reported Wound VAC tolerated well Review of Systems General: Fatigue, Malaise Musculoskeletal: back pain Objective Exam Vital Signs Vital Signs Date Time Temp Pulse Resp B/P (MAP) Pulse Ox O2 Delivery O2 Flow Rate FiO2 04/10/21 20:54 99 Room Air 04/10/21 20:00 36.8 78 16 108/58 (75) Capillary Refill : General Appearance: No Apparent Distress, WD/WN, Chronically ill, Other (pale, chronically ill) HEENT: PERRL/EOMI, Normal ENT Inspection, Pharynx Normal Neck: Full Range of Motion, Normal Inspection, Non Tender, Supple, Carotid Bruit Respiratory: Chest Non Tender, Lungs Clear, Normal Breath Sounds, No Accessory Muscle Use, No Respiratory Distress Cardiovascular: Regular Rate, Rhythm, No Edema, No Gallop, No JVD, No Murmur, Normal Peripheral Pulses Gastrointestinal: Normal Bowel Sounds, No Organomegaly, No Pulsatile Mass, Non Tender, Soft Back: Normal Inspection, No CVA Tenderness, No Vertebral Tenderness Extremity: Normal Capillary Refill, Normal Inspection, Normal Range of Motion, Non Tender, No Calf Tenderness, No Pedal Edema Neurologic/Psychiatric: Alert, Oriented x3, No Motor/Sensory Deficits, rabbler II- XII Norm as Tested, Depressed Affect, Motor Weakness (3/5 upper 1/5 lower) Skin: Normal Color, Warm/Dry, Other (coccyx decubitus ulcer with wound vac) Lymphatic: No Adenopathy Results/Procedures Lab Patient resulted labs reviewed. FIM Transfers Therapy Code Descriptions/Definitions Functional [place] Measure: 0=Not Assessed/NA 4=Minimal Assistance 1=Total Assistance 5=Supervision or Setup 2=Maximal Assistance 6=Modified [place] 3=Moderate Assistance 7=Complete IndependenceSCALE: Activities may be completed with or without assistive devices. 5-Ikegegqmld-dexoijk completes the activity by him/herself with no assistance from a helper. 5-Set-up or Clean-up Assistance-helper sets up or cleans up; patient completes activity. Edgar assists only prior to or following the activity. 4-Supervision or Touching Assistance-helper provides verbal cues and/or touching/steadying and/or contact guard assistance as patient completes activity. Assistance may be provided throughout the activity or intermittently. 3-Partial/Moderate Assistance-helper does LESS THAN HALF the effort. Edgar lifts, holds or supports trunk or limbs, but provides less than half the effort. 2-Substantial/Maximal Assistance-helper does MORE THAN HALF the effort. Edgar lifts or holds trunk or limbs and provides more than half the effort. 9-Qaqjibekj-stbbbj does ALL the effort. Patient does none of the effort to complete the activity. Or, the assistance of 2 or more helpers is required for the patient to complete the activity. If activity was not attempted, code reason: 7-Patient Refused. 9-Not Applicable-not attempted and the patient did not perform the activity before the current illness, exacerbation or injury. 10-Not Attempted due to Environmental Limitations-(lack of equipment, weather restraints, etc.). 88-Not Attempted due to Medical Conditions or Safety Concerns. Roll Left to Right (QC): 6 Sit to Lying (QC): 3 Sit to Stand (QC): 2 Chair/Spl-nd-Shplb Xfer(QC): 2 Car Transfer (QC): 1 Gait Training Does the Patient Walk?: No and Walking Goal IS indicated Walk 10 feet (QC): 88 Walk 50 ft with 2 Turns(QC): 88 Walk 150 ft (QC): 88 Walking 10ft/uneven surface-QC: 88 Wheelchair Training Does the Pt Use a Wheelchair?: Yes Distance: 150 Wheel 50 ft with 2 turns (QC): 4 Wheel 150 ft (QC): 3 Type of Wheelchair: Manual Stair Training #of Steps: 0 1 Step (curb) (QC): 88 4 Steps (QC): 88 12 Steps (QC): 88 Balance Picking up an Object (QC): 88 ADL-Treatment Eating (QC): 5 Oral Hygiene (QC): 4 Shower/Bathe Self (QC): 1 Upper Body Dressing (QC): 3 Lower Body Dressing (QC): 1 On/Off Footwear (QC): 1 Toileting Hygiene (QC): 1 Toilet Transfer (QC): 1 Assessment/Plan Assessment and Plan Assess & Plan/Chief Complaint Assessment: Post Covid with deconditioning s/p severe sepsis Diarrhea Sacral decubitus ulcer Hypokalemia Anemia previous transfusion Anxiety and Depression Fernandez catheter 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 Plan: IV abx Wound vac PT OT Depression meds OAC 04/07/2021: Wound VAC Out of bed 04/08/2021: Out of bed Wound VAC 04/09/2021: Supportive care Dramatic improvement already 04/10/2021: Supportive care Fernandez catheter required although it is an infection risk (1) Post covid-19 condition, unspecified Status: Chronic (2) Sacral decubitus ulcer, stage IV Status: Chronic (3) Severe sepsis Status: Acute (4) UTI (urinary tract infection) TERRA EDWARDS DO Apr 10, 2021 08:45
[2021-04-10] MEDS: FERROUS SULF 325 MG (IRON) TAB PO SCH (09:50)
[2021-04-10] MEDS: APIXABAN 5 MG (ELIQUIS) TABLET PO SCH ×2 (09:50→20:24)
[2021-04-10] MEDS: fluCOnazole (DIFLUCAN) 100 MG TAB PO SCH (09:50)
[2021-04-10] MEDS: ATENOLOL 25 MG (TENORMIN) TAB PO SCH ×3 (09:51→20:26)
[2021-04-10] MEDS: OXYBUTYNIN (DITROPAN) 5 MG TAB PO SCH ×3 (09:51→20:24)
[2021-04-10] MEDS: SERTRALINE 50 MG (ZOLOFT) TABLET PO SCH (09:51)
[2021-04-10] MEDS: MESALAMINE 250 MG (PENTASA) CAP PO SCH ×3 (09:51→20:26)
[2021-04-10] MEDS: polyethylene glycoL POWDER 17 GM (MIRALAX) PACK PO SCH ×2 (09:51→20:27)
[2021-04-10] MEDS: HYDROcodone/APAP 7.5 MG/325 MG (LORTAB, LORCET PLUS) TABLET PO SCH ×4 (09:51→20:25)
[2021-04-10] MEDS: COLLAGENASE 30 GM (SANTYL) TUBE TP SCH ×2 (09:52→20:36)
[2021-04-10] MEDS: NYSTATIN CREAM (MYCOSTATIN) 30 GM TUBE TP SCH ×3 (09:52→20:36)
[2021-04-10] MEDS: MICONAZOLE 2% POWDER (DESENEX AF) 90 GM TOP SCH ×2 (09:52→20:35)
--- NOTE | 2021-04-10 10:27 | Physical Therapy Daily Note ---
PT Daily Note-Current Subjective Pt in bed and agrees to co-treat. Use of 2 skilled clinicians d/t pt poor mobility, low activity tolerance, transfers, weakness, safety, and decrease risk of falls. Pt states pain and soreness in bottom throughout tx Mental Status Patient Orientation: Person, Place, Time, Situation Transfers SCALE: Activities may be completed with or without assistive devices. 2-Vludbnoitv-lydrhmg completes the activity by him/herself with no assistance from a helper. 5-Set-up or Clean-up Assistance-helper sets up or cleans up; patient completes activity. [place] assists only prior to or following the activity. 4-Supervision or Touching Assistance-helper provides verbal cues and/or touching/steadying and/or contact guard assistance as patient completes activity. Assistance may be provided throughout the activity or intermittently. 3-Partial/Moderate Assistance-helper does LESS THAN HALF the effort. [place] lifts, holds or supports trunk or limbs, but provides less than half the effort. 2-Substantial/Maximal Assistance-helper does MORE THAN HALF the effort. [place] lifts or holds trunk or limbs and provides more than half the effort. 2-Mbjnpnqqc-eoeuwp does ALL the effort. Patient does none of the effort to complete the activity. Or, the assistance of 2 or more helpers is required for the patient to complete the activity. If activity was not attempted, code reason: 7-Patient Refused. 9-Not Applicable-not attempted and the patient did not perform the activity before the current illness, exacerbation or injury. 10-Not Attempted due to Environmental Limitations-(lack of equipment, weather restraints, etc.). 88-Not Attempted due to Medical Conditions or Safety Concerns. Roll Left & Right (QC): 6 Sit to Lying (QC): 3 Lying to Sitting/Side of Bed(Q: 3 Sit to Stand (QC): 3 Chair/Krb-fc-Isxtc Xfer(QC): 3 Pt sit to stands ModA, uses SB and transfers ModA Weight Bearing Right Lower Extremity: Right Full Weight Bearing Left Lower Extremity: Left Full Weight Bearing Patient is cleared medically to bear weight through bilateral LEs, however due to prolonged illness and bed rest, patients LE's very weak and plantarflexion contractures bilaterally Gait Training Does the Patient Walk?: No and Walking Goal IS indicated Wheelchair Training Does the Pt Use a Wheelchair?: Yes Type of Wheelchair: Manual Treatments OT focused on dressing, ADLs, and UE positioning. PT focused on transfers, balance training, and LE positioning/stretching. Pt in bed requires A to clean after having BM. Pt then sits EOB and changes clothes, sit to stand ModA as OT dons pants. Pt then completes SB transfer to ModA. Pt taken to // bars in therapy gym and completes sit <> stand x3 ModA, holding stance 24 seconds, 39 seconds, and 52 seconds. Pt then completes seated balance and core strengthening exercises on therapy mat. Pt c/o dizziness and requires supine break during exercises. HR reading 130-140 O2 99%, once pt is supine HR 67-75 and O2 100%. Pt dizziness subsides and finishes core exercises. SB transfer back to and returns to room. Pt SB back to bed, sit to stand ModA to doff pants, sit <> supine ModA for LE advancement. PT completes static stretch of L ankle PF/DF. Pt then scoots up in bed MaxA x2, remains in bed with nursing in room and all needs met, call light in hand. Assessment Current Status: Fair Progress Pt requires multiple rest breaks d/t low activity tolerance. O2 and HR monitored, HR spiked to 140 with activity and quickly recovered to 67 with supine rest PT Short Term Goals Short Term Goals Time Frame: Apr 20, 2021 Roll Left & Right: 4 Sit to lyin Lying to sitting on side of be: 4 Sit to stand: 3 Chair/kof-jz-ebbln transfer: 3 Toilet transfer: 3 Car transfer: 3 Walk 10 feet: 2 Walk 50 feet with two turns: 1 Walk 150 feet: 1 Does pt use a wc or scooter: Yes Wheel 50ft w/2 turns: 5 Wheel 150 feet: 5 Type: Manual PT Shelter Goals Shelter Goals PT Shelter Goals Time Frame: May 18, 2021 Roll Left & Right (QC): 6 Sit to Lying (QC): 6 Lying-Sitting on Side/Bed(QC): 6 Sit to Stand (QC): 4 Chair/Yev-nd-Edwbc Xfer(QC): 4 Toilet Transfer (QC): 4 Car Transfer (QC): 4 Does the Patient Walk: Yes Walk 10 feet (QC): 3 Walk 50ft with 2 Turns (QC): 3 Walk 150 ft (QC): 3 Walking 10ft on Uneven Surface: 3 1 Step (curb) (QC): 2 4 Steps (QC): 2 12 Steps (QC): 88 Picking up an Object (QC): 3 Does the Pt use WC or Scooter?: Yes Wheel 50 feet with 2 turns (QC: 6 Type: Manual Wheel 150 feet: 6 Type: Manual (6) PT Plan Problem List Problem List: Activity Tolerance, Functional Strength, Safety, Balance, Transfer Treatment/Plan Treatment Plan: Continue Plan of Care Treatment Plan: Bed Mobility, Education, Functional Activity John [place], Functional Strength, Group Therapy, Gait, Safety, Therapeutic Exercise, Transfers Treatment Duration: May 18, 2021 Frequency: At least 5 of 7 days/Wk (IRF) Estimated Hrs Per Day: 1.5 hours per day Patient and/or Family Agrees t: Yes Time/GCodes Time In: 900 Time Out: 1030 Total Billed Treatment Time: 90 Total Billed Treatment 1, FA x4, EX x2 MARK VELAZQUEZ WRAPPER LEAF INSPECTOR Apr 10, 2021 10:27
--- NOTE | 2021-04-10 10:41 | Occupational Ther Daily Note ---
OT Current Status-Daily Note Subjective Pt in bed and agrees to co-treat. Use of 2 skilled clinicians d/t pt poor mobility, low activity tolerance, transfers, weakness, safety, and decrease risk of falls. Pt states pain and soreness in bottom throughout tx. RN notified. Appearance Returned to sidelying in bed. All needs within reach. RN in room. Mental Status/Objective Attachments: Drains, Fernandez Catheter, IV ADL-Treatment Therapy Code Descriptions/Definitions Functional [place] Measure: 0=Not Assessed/NA 4=Minimal Assistance 1=Total Assistance 5=Supervision or Setup 2=Maximal Assistance 6=Modified [place] 3=Moderate Assistance 7=Complete IndependenceSCALE: Activities may be completed with or without assistive devices. 3-Tojewhjamw-ilbxngg completes the activity by him/herself with no assistance from a helper. 5-Set-up or Clean-up Assistance-helper sets up or cleans up; patient completes activity. [place] assists only prior to or following the activity. 4-Supervision or Touching Assistance-helper provides verbal cues and/or touching/steadying and/or contact guard assistance as patient completes activity. Assistance may be provided throughout the activity or intermittently. 3-Partial/Moderate Assistance-helper does LESS THAN HALF the effort. [place] lifts, holds or supports trunk or limbs, but provides less than half the effort. 2-Substantial/Maximal Assistance-helper does MORE THAN HALF the effort. [place] lifts or holds trunk or limbs and provides more than half the effort. 0-Cnmebsrfg-uaqfxu does ALL the effort. Patient does none of the effort to complete the activity. Or, the assistance of 2 or more helpers is required for the patient to complete the activity. If activity was not attempted, code reason: 7-Patient Refused. 9-Not Applicable-not attempted and the patient did not perform the activity before the current illness, exacerbation or injury. 10-Not Attempted due to Environmental Limitations-(lack of equipment, weather restraints, etc.). 88-Not Attempted due to Medical Conditions or Safety Concerns. Upper Body Dressing (QC): 4 Lower Body Dressing (QC): 1 On/Off Footwear: 1 Toileting Hygiene (QC): 1 Pt with large amount of liquid stools at bed level at therapy arrival. Dependent to clean. Mod a to sit EOB to don clothing. Improved sitting balance this date; intermittent CGA for safety during dynamic tasks. Improved use of folding machine setter when threading feet into pants, yet still needing min-mod verbal cues for preferred use. Assist required to thread LLE secondary to LE weakness and ankle contracture. Discussed threading LLE first next session. Dependent to don radha socks. Mod a to stand from physical therapy as OT managed clothing over hips. Other Treatment Slide board transfer bed<>w/c<>mat with mod A and min cues for sequencing. While in // bars, pt performs sit<>stand x3; goal to increase standing time each bout. Times included: 0:24, 0:39, and 0:52. Lengthy rest breaks needed in between each standing bout secondary to fatigue and c/o dizziness. Seated core and balance exercises performed on mat with goal to improve strength, endurance, and balance for adls. Increased SOB notable with c/o dizziness. HR 135-140 O2 99%. Once supine HR quickly recovers to mid 60's-low 70's, O2 100%. Once dizziness subsides, pt finishes core exercises. Only able to tolerate 8 reps each before requiring rest break. Education OT Patient Education: Correct positioning, Energy conservation, Exercise program, Modified ADL techniques, Progress toward Goal/Update tx plan, Purpose of tx/functional activities, Rehab process, Transfer techniques, Use of adapted equipment Teaching Recipient: Patient Teaching Methods: Demonstration, Discussion Response to Teaching: Verbalize Understanding OT Short Term Goals Short Term Goals Time Frame: Apr 20, 2021 Eatin Oral hygiene: 5 Toileting hygiene: 2 Shower/bathe self: 2 Upper body dressin Lower body dressin Putting on/taking off footwear: 2 OT Telegraph Office Manager Goals Detention Goals Time Frame: May 04, 2021 Eating (QC): 6 Oral Hygiene (QC): 5 Toileting Hygiene (QC): 4 Shower/Bathe Self (QC): 4 Upper Body Dressing (QC): 5 Lower Body Dressing (QC): 4 On/Off Footwear (QC): 4 1=Demonstrate adherence to instructed precautions during ADL tasks. 2=Patient will verbalize/demonstrate understanding of assistive devices/modifications for ADL. 3=Patient will improve strength/tolerance for activity to enable patient to perform ADL's. OT Education/Plan Problem List/Assessment Assessment: Decreased Activ Tolerance, Decreased UE Strength, Impaired Coordination, Impaired Funct Balance, Impaired I ADL's, Impaired Self-Care Skills, Restricted Funct UE ROM Discharge Recommendations Plan/Recommendations: Continue POC Treatment Plan/Plan of Care Treatment,Training & Education: Yes Patient would benefit from OT for education, treatment and training to promote independence in ADL's, mobility, safety and/or upper extremity function for ADL's. Plan of Care: ADL Retraining, Functional Mobility, Group Exercise/Act as Ind, UE Funct Exercise/Act, UE Neuromus Re-Ed/Coord, W/C Management Training Treatment Duration: May 04, 2021 Frequency: At least 5 of 7 days/Wk (IRF) Estimated Hrs Per Day: 1.5 hours per day Agreement: Yes Rehab Potential: Fair Time/GCodes Start Time: 09:00 Stop Time: 10:30 Total Time Billed (hr/min): 90 Billed Treatment Time 1 visit ADL x3 (40 min) FA (15 min) EX x2 (35 min) co treat for 90 min Latoya Becker OT Apr 10, 2021 10:41
[2021-04-10] MEDS: ONDANSETRON 4 MG/2 ML (SDV) Z0FRAN IVP PRN (13:17)
[2021-04-10] MEDS: CHOLESTYRAMINE 4 GM (QUESTRAN LITE, PREVALITE) PKT PO PRN (18:40)
[2021-04-10 20:00] VITALS: BP 108/58
[2021-04-10] MEDS: MELATONIN 10 MG TABLET PO SCH (20:26)
[2021-04-11] MEDS: CEFEPIME INJECTION 2,000 MG in NS (IVPB) 50 ML IV SCH ×3 (05:46→21:23)
[2021-04-11] MEDS: LACTOBACILLUS Acidoph/Bulgar 1 GM (LACTINEX) PACKET PO SCH ×4 (05:46→21:16)
[2021-04-11] MEDS: VENlafaxine XR 75 MG (EFFEXOR XR) CAP PO SCH (06:20)
[2021-04-11] MEDS: MULTIVIT W/MINERALS TAB (THERAGRAN M) PO SCH (06:21)
--- NOTE | 2021-04-11 07:14 | PM&R Progress Note ---
Subjective HPI/CC On Admission Date Seen by Provider: Apr 11, 2021 Time Seen by Provider: 11:00 Subjective/Events-last exam 04/11/2021: Patient doing well Fecal incontinence again last night Participating in therapy Wound VAC changed 04/10/2021: Patient doing well No major concerns PICC line dysfunction will be assessed Foot drop will be addressed with AFO Incontinent of bowel last night 04/09/2021: Patient doing really well Labs stable Hemoglobin 8.6 Wound VAC working well Getting ready to go the parallel bars with physical therapy 04/08/2021: Patient doing very well Was up 4 times yesterday out of bed Loose stools only has occurred once May need to use Questran as needed Check meds labs 04/07/2021: Patient doing very well We will get up in chair for lunch Hemoglobin 8.6 Bowels are moving now so on verge of constipation will change Questran to as needed no pain is reported Wound VAC tolerated well Review of Systems General: Fatigue, Malaise Musculoskeletal: back pain Objective Exam Vital Signs Vital Signs Date Time Temp Pulse Resp B/P (MAP) Pulse Ox O2 Delivery O2 Flow Rate FiO2 04/11/21 21:41 95 Room Air 04/11/21 19:44 37.0 71 18 101/53 (69) Capillary Refill : General Appearance: No Apparent Distress, WD/WN, Chronically ill, Other (pale, chronically ill) HEENT: PERRL/EOMI, Normal ENT Inspection, Pharynx Normal Neck: Full Range of Motion, Normal Inspection, Non Tender, Supple, Carotid Bruit Respiratory: Chest Non Tender, Lungs Clear, Normal Breath Sounds, No Accessory Muscle Use, No Respiratory Distress Cardiovascular: Regular Rate, Rhythm, No Edema, No Gallop, No JVD, No Murmur, Normal Peripheral Pulses Gastrointestinal: Normal Bowel Sounds, No Organomegaly, No Pulsatile Mass, Non Tender, Soft Back: Normal Inspection, No CVA Tenderness, No Vertebral Tenderness Extremity: Normal Capillary Refill, Normal Inspection, Normal Range of Motion, Non Tender, No Calf Tenderness, No Pedal Edema Neurologic/Psychiatric: Alert, Oriented x3, No Motor/Sensory Deficits, e m assembler II- XII Norm as Tested, Depressed Affect, Motor Weakness (3/5 upper 1/5 lower) Skin: Normal Color, Warm/Dry, Other (coccyx decubitus ulcer with wound vac) Lymphatic: No Adenopathy Results/Procedures Lab Laboratory Tests 04/11/21 11:35 Patient resulted labs reviewed. FIM Transfers Therapy Code Descriptions/Definitions Functional [place] Measure: 0=Not Assessed/NA 4=Minimal Assistance 1=Total Assistance 5=Supervision or Setup 2=Maximal Assistance 6=Modified [place] 3=Moderate Assistance 7=Complete IndependenceSCALE: Activities may be completed with or without assistive devices. 4-Tkozhznegd-rqkbpmf completes the activity by him/herself with no assistance from a helper. 5-Set-up or Clean-up Assistance-helper sets up or cleans up; patient completes activity. [place] assists only prior to or following the activity. 4-Supervision or Touching Assistance-helper provides verbal cues and/or touching/steadying and/or contact guard assistance as patient completes activity. Assistance may be provided throughout the activity or intermittently. 3-Partial/Moderate Assistance-helper does LESS THAN HALF the effort. [place] lifts, holds or supports trunk or limbs, but provides less than half the effort. 2-Substantial/Maximal Assistance-helper does MORE THAN HALF the effort. [place] lifts or holds trunk or limbs and provides more than half the effort. 4-Jmgpmbeyj-tsyyun does ALL the effort. Patient does none of the effort to complete the activity. Or, the assistance of 2 or more helpers is required for the patient to complete the activity. If activity was not attempted, code reason: 7-Patient Refused. 9-Not Applicable-not attempted and the patient did not perform the activity before the current illness, exacerbation or injury. 10-Not Attempted due to Environmental Limitations-(lack of equipment, weather restraints, etc.). 88-Not Attempted due to Medical Conditions or Safety Concerns. Roll Left to Right (QC): 6 Sit to Lying (QC): 3 Sit to Stand (QC): 3 Chair/Tnj-wq-Hutlx Xfer(QC): 3 Car Transfer (QC): 1 Gait Training Does the Patient Walk?: No and Walking Goal IS indicated Walk 10 feet (QC): 88 Walk 50 ft with 2 Turns(QC): 88 Walk 150 ft (QC): 88 Walking 10ft/uneven surface-QC: 88 Wheelchair Training Does the Pt Use a Wheelchair?: Yes Distance: 150 Wheel 50 ft with 2 turns (QC): 4 Wheel 150 ft (QC): 3 Type of Wheelchair: Manual Stair Training #of Steps: 0 1 Step (curb) (QC): 88 4 Steps (QC): 88 12 Steps (QC): 88 Balance Picking up an Object (QC): 88 ADL-Treatment Eating (QC): 5 Oral Hygiene (QC): 4 Shower/Bathe Self (QC): 1 Upper Body Dressing (QC): 4 Lower Body Dressing (QC): 1 On/Off Footwear (QC): 1 Toileting Hygiene (QC): 1 Toilet Transfer (QC): 1 Assessment/Plan Assessment and Plan Assess & Plan/Chief Complaint Assessment: Post Covid with deconditioning s/p severe sepsis Diarrhea Sacral decubitus ulcer Hypokalemia Anemia previous transfusion Anxiety and Depression Fernandez catheter 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 Plan: IV abx Wound vac PT OT Depression meds OAC 04/07/2021: Wound VAC Out of bed 04/08/2021: Out of bed Wound VAC 04/09/2021: Supportive care Dramatic improvement already 04/10/2021: Supportive care Fernandez catheter required although it is an infection risk 04/11/2021: Supportive care Wound VAC appreciated (1) Post covid-19 condition, unspecified Status: Chronic (2) Sacral decubitus ulcer, stage IV Status: Chronic (3) Severe sepsis Status: Acute (4) UTI (urinary tract infection) TERRA EDWARDS DO Apr 11, 2021 07:14
[2021-04-11 08:10] VITALS: BP 102/58
[2021-04-11] MEDS: FERROUS SULF 325 MG (IRON) TAB PO SCH (08:12)
[2021-04-11] MEDS: OXYBUTYNIN (DITROPAN) 5 MG TAB PO SCH ×3 (08:12→21:17)
[2021-04-11] MEDS: HYDROcodone/APAP 7.5 MG/325 MG (LORTAB, LORCET PLUS) TABLET PO SCH ×4 (08:12→21:19)
[2021-04-11] MEDS: APIXABAN 5 MG (ELIQUIS) TABLET PO SCH ×2 (08:12→21:17)
[2021-04-11] MEDS: SERTRALINE 50 MG (ZOLOFT) TABLET PO SCH (08:12)
[2021-04-11] MEDS: fluCOnazole (DIFLUCAN) 100 MG TAB PO SCH (08:12)
[2021-04-11] MEDS: MESALAMINE 250 MG (PENTASA) CAP PO SCH ×3 (08:12→21:17)
[2021-04-11] MEDS: MICONAZOLE 2% POWDER (DESENEX AF) 90 GM TOP SCH ×2 (08:14→21:18)
[2021-04-11] MEDS: NYSTATIN CREAM (MYCOSTATIN) 30 GM TUBE TP SCH ×3 (08:14→21:18)
[2021-04-11] MEDS: polyethylene glycoL POWDER 17 GM (MIRALAX) PACK PO SCH ×2 (08:15→21:20)
--- NOTE | 2021-04-11 08:59 | Occupational Ther Daily Note ---
OT Current Status-Daily Note Subjective Pt alert, laying in bed when OT entered. Pt agreed to therapy. No c/o pain reported. Mental Status/Objective Patient Orientation: Person, Place, Time, Situation Attachments: Fernandez Catheter, IV ADL-Treatment Co treat with PT (800-900) Use of 2 skilled clinicians d/t pt poor mobility, low activity tolerance, transfers, weakness, safety, and decrease risk of falls. PT focusing on LB exercises, LB placement, and bed mobility while OT focusing on sponge bath and UB placement with bed mobility. Pt agreed to complete sponge bath while sitting at EOB. While laying supine in bed, pt attempted to doff socks but was unable to bring sock over heal due to decreased endurance. Pt supine to EOB with Mod A due to decreased UE strength. After set up of materials, pt cleansed UB, chest, abdomen, and upper LB with SBA for safety. Pt required assist to cleanse lower LB due to decreased dynamic sitting balance when reaching outside ROSALINDA and fatigue. Pt required frequent resting breaks throughout task due to low activity tolerance. Pt donned new gown. Pt requested to lay supine due to increase pain from wound. Pt required min A to swing LB onto bed. Pt required max A to don socks, pt was able to lift leg. After set up, pt completed oral hygiene while laying in bed. Therapy Code Descriptions/Definitions Functional [place] Measure: 0=Not Assessed/NA 4=Minimal Assistance 1=Total Assistance 5=Supervision or Setup 2=Maximal Assistance 6=Modified [place] 3=Moderate Assistance 7=Complete IndependenceSCALE: Activities may be completed with or without assistive devices. 4-Afibdwfkml-pegrofs completes the activity by him/herself with no assistance from a helper. 5-Set-up or Clean-up Assistance-helper sets up or cleans up; patient completes activity. [place] assists only prior to or following the activity. 4-Supervision or Touching Assistance-helper provides verbal cues and/or touching/steadying and/or contact guard assistance as patient completes activity. Assistance may be provided throughout the activity or intermittently. 3-Partial/Moderate Assistance-helper does LESS THAN HALF the effort. [place] lifts, holds or supports trunk or limbs, but provides less than half the effort. 2-Substantial/Maximal Assistance-helper does MORE THAN HALF the effort. [place] lifts or holds trunk or limbs and provides more than half the effort. 0-Hwyofhwkz-onqkxg does ALL the effort. Patient does none of the effort to comp lete the activity. Or, the assistance of 2 or more helpers is required for the patient to complete the activity. If activity was not attempted, code reason: 7-Patient Refused. 9-Not Applicable-not attempted and the patient did not perform the activity before the current illness, exacerbation or injury. 10-Not Attempted due to Environmental Limitations-(lack of equipment, weather restraints, etc.). 88-Not Attempted due to Medical Conditions or Safety Concerns. Other Treatment Pt transferred from EOB to supine with Mod A and participated in functional static sitting task while completing LB exercises for increased independence and safety with ADLs. Pt demonstrated good static sitting balance before requesting to lay down due to fatigue. Pt transferred from EOB to supine with min A to swing LB onto bed. After session, pt laying in bed. Call light in reach and all needs met. Education OT Patient Education: Correct positioning, Energy conservation, Exercise program, Home exercise program, Modified ADL techniques, Progress toward Goal/Update tx plan Teaching Recipient: Patient Teaching Methods: Demonstration, Discussion Response to Teaching: Verbalize Understanding, Return Demonstration OT Short Term Goals Short Term Goals Time Frame: Apr 20, 2021 Eatin Oral hygiene: 5 Toileting hygiene: 2 Shower/bathe self: 2 Upper body dressin Lower body dressin Putting on/taking off footwear: 2 OT Fci Goals Fci Goals Time Frame: May 04, 2021 Eating (QC): 6 Oral Hygiene (QC): 5 Toileting Hygiene (QC): 4 Shower/Bathe Self (QC): 4 Upper Body Dressing (QC): 5 Lower Body Dressing (QC): 4 On/Off Footwear (QC): 4 1=Demonstrate adherence to instructed precautions during ADL tasks. 2=Patient will verbalize/demonstrate understanding of assistive devices /modifications for ADL. 3=Patient will improve strength/tolerance for activity to enable patient to perform ADL's. OT Education/Plan Problem List/Assessment Assessment: Decreased Activ Tolerance, Decreased UE Strength, Impaired Funct Balance, Impaired I ADL's, Impaired Self-Care Skills Discharge Recommendations Plan/Recommendations: Continue POC Treatment Plan/Plan of Care Patient would benefit from OT for education, treatment and training to promote independence in ADL's, mobility, safety and/or upper extremity function for ADL's. Plan of Care: ADL Retraining, Functional Mobility, Group Exercise/Act as Ind, UE Funct Exercise/Act, UE Neuromus Re-Ed/Coord, W/C Management Training Treatment Duration: May 04, 2021 Frequency: At least 5 of 7 days/Wk (IRF) Estimated Hrs Per Day: 1.5 hours per day Agreement: Yes Rehab Potential: Fair Time/GCodes Start Time: 08:00 Stop Time: 09:00 Total Time Billed (hr/min): 60 Billed Treatment Time 1 visit- ADL 3 ( 41 mins) FA 1 (19 mins) Co treat (60 mins) DESHAUN POSADA Apr 11, 2021 08:59
[2021-04-11] MEDS: COLLAGENASE 30 GM (SANTYL) TUBE TP SCH ×2 (09:13→21:18)
--- NOTE | 2021-04-11 10:04 | Physical Therapy Daily Note ---
PT Daily Note-Current Subjective Pt laying R sidelying upon arrival. Pt agrees to PT/OT co-treat. Pain Location Body Site: Sacrum Pain Description: Ache, Pressure Mental Status Patient Orientation: Person, Place, Time, Situation Attachments: Other-See Comments (Wound Vac.) Transfers SCALE: Activities may be completed with or without assistive devices. 5-Qncfemufci-jhuzdza completes the activity by him/herself with no assistance from a helper. 5-Set-up or Clean-up Assistance-helper sets up or cleans up; patient completes activity. [place] assists only prior to or following the activity. 4-Supervision or Touching Assistance-helper provides verbal cues and/or touching/steadying and/or contact guard assistance as patient completes activity. Assistance may be provided throughout the activity or intermittently. 3-Partial/Moderate Assistance-helper does LESS THAN HALF the effort. [place] lifts, holds or supports trunk or limbs, but provides less than half the effort. 2-Substantial/Maximal Assistance-helper does MORE THAN HALF the effort. [place] lifts or holds trunk or limbs and provides more than half the effort. 8-Kvfhjyrlv-xpcivx does ALL the effort. Patient does none of the effort to c omplete the activity. Or, the assistance of 2 or more helpers is required for the patient to complete the activity. If activity was not attempted, code reason: 7-Patient Refused. 9-Not Applicable-not attempted and the patient did not perform the activity before the current illness, exacerbation or injury. 10-Not Attempted due to Environmental Limitations-(lack of equipment, weather restraints, etc.). 88-Not Attempted due to Medical Conditions or Safety Concerns. Sit to Lying (QC): 4 Lying to Sitting/Side of Bed(Q: 3 Weight Bearing Right Lower Extremity: Right Full Weight Bearing Left Lower Extremity: Left Full Weight Bearing Patient is cleared medically to bear weight through bilateral LEs, however due to prolonged illness and bed rest, patients LE's very weak and plantarflexion contractures bilaterally Exercises Supine Ex: Ankle pumps, Quad Set, Glut sets, Heel Slides, Hip abd/add Supine Reps: 15 Seated Therapy Exercises: Ankle pumps, Long arc quads, Hip flexion, Glut set Seated Reps: 15 Treatments Co treat with PT (800-900) Use of 2 skilled clinicians d/t pt poor mobility, low activity tolerance, transfers, weakness, safety, and decrease risk of falls. PT focusing on LB exercises, LB placement, and bed mobility while OT focusing on sponge bath and UB placement with bed mobility. Pt agreed to complete sponge bath while sitting at EOB. While laying supine in bed, pt attempted to doff socks but was unable to bring sock over heal due to decreased endurance. Pt supine to EOB with Mod A due to decreased UE strength. After set up of material s, pt cleansed UB, chest, abdomen, and upper LB. Pt required assist to cleanse lower LB due to decreased sitting tolerance and fatigue. Pt required frequent resting break throughout task due to low activity tolerance. Pt donned new gown. Pt requested to lay supine due to increase pain from wound. Pt required min A to swing LB onto bed. After set up, pt completed oral hygiene while laying in bed. Pt required Max A to don socks. Pt transferred from EOB to supine with Min A and participated in dynamic sitting task for increase independence and safety with ADLs. This involved Seated EX at EOB. Pt tolerated task well and demonstrated good dynamic sitting balance. Pt transferred from EOB to supine with min A to swing LB onto bed. After session, pt laying in bed. Call light in reach and all needs met. [id number]: Pt completes Supine EX in bed due to fatigue and nausea. Modification made to Supine EX protocol to allow for sidelying (ex.- clamshells,etc.) Pt resting with all needs met, including pillow for posit ioning to L sidelying. Call light in hand. Assessment Current Status: Fair Progress Pt's generalized weakness, fatigue, sacrum pain & nausea/lightheadedness limit tx. 102/58 to start tx in Supine. PT Short Term Goals Short Term Goals Time Frame: Apr 20, 2021 Roll Left & Right: 4 Sit to lyin Lying to sitting on side of be: 4 Sit to stand: 3 Chair/ntb-yr-cquwl transfer: 3 Toilet transfer: 3 Car transfer: 3 Walk 10 feet: 2 Walk 50 feet with two turns: 1 Walk 150 feet: 1 Does pt use a wc or scooter: Yes Wheel 50ft w/2 turns: 5 Wheel 150 feet: 5 Type: Manual PT [place] Regenerator Goals Halfway Goals PT [place] Regenerator Goals Time Frame: May 18, 2021 Roll Left & Right (QC): 6 Sit to Lying (QC): 6 Lying-Sitting on Side/Bed(QC): 6 Sit to Stand (QC): 4 Chair/Mpz-cw-Msgsu Xfer(QC): 4 Toilet Transfer (QC): 4 Car Transfer (QC): 4 Does the Patient Walk: Yes Walk 10 feet (QC): 3 Walk 50ft with 2 Turns (QC): 3 Walk 150 ft (QC): 3 Walking 10ft on Uneven Surface: 3 1 Step (curb) (QC): 2 4 Steps (QC): 2 12 Steps (QC): 88 Picking up an Object (QC): 3 Does the Pt use WC or Scooter?: Yes Wheel 50 feet with 2 turns (QC: 6 Type: Manual Wheel 150 feet: 6 Type: Manual (6) PT Plan Problem List Problem List: Activity Tolerance, Functional Strength, Transfer Treatment/Plan Treatment Plan: Continue Plan of Care Treatment Plan: Bed Mobility, Education, Functional Activity [place], Functional Strength, Group Therapy, Gait, Safety, Therapeutic Exercise, Transfers Treatment Duration: May 18, 2021 Frequency: At least 5 of 7 days/Wk (IRF) Estimated Hrs Per Day: 1.5 hours per day Patient and/or Family Agrees t: Yes Safety Risks/Education Patient Education: Transfer Techniques, Correct Positioning Teaching Recipient: Patient Teaching Methods: Discussion Response to Teaching: Verbalize Understanding Time/GCodes Time In: 800 Time Out: 900 Total Billed Treatment Time: 60 Total Billed Treatment Co-treat w/OT for 60m (800-900) 1, FA x3 (40m) & EX (20m) [id number]: 1, EX x2 (30m) SUE VOGT PTA Apr 11, 2021 10:04
[2021-04-11 10:23] VITALS: BP 86/50
[2021-04-11] MEDS: ATENOLOL 25 MG (TENORMIN) TAB PO SCH ×2 (10:23→21:22)
--- NOTE | 2021-04-11 10:53 | Occupational Ther Daily Note ---
OT Current Status-Daily Note Subjective Pt alert, laying in bed when OT entered. Pt agreed to therapy. No c/o pain reported at this time. Mental Status/Objective Patient Orientation: Person, Place, Time, Situation Attachments: Drains, Fernandez Catheter, IV ADL-Treatment Therapy Code Descriptions/Definitions Functional [place] Measure: 0=Not Assessed/NA 4=Minimal Assistance 1=Total Assistance 5=Supervision or Setup 2=Maximal Assistance 6=Modified [place] 3=Moderate Assistance 7=Complete IndependenceSCALE: Activities may be completed with or without assistive devices. 8-Eigwwbbisr-euwvnhm completes the activity by him/herself with no assistance from a helper. 5-Set-up or Clean-up Assistance-helper sets up or cleans up; patient completes activity. [place] assists only prior to or following the activity. 4-Supervision or Touching Assistance-helper provides verbal cues and/or touching/steadying and/or contact guard assistance as patient completes activity. Assistance may be provided throughout the activity or intermittently. 3-Partial/Moderate Assistance-helper does LESS THAN HALF the effort. [place] lifts, holds or supports trunk or limbs, but provides less than half the effort. 2-Substantial/Maximal Assistance-helper does MORE THAN HALF the effort. [place] lifts or holds trunk or limbs and provides more than half the effort. 3-Zdutqeiql-tkvuft does ALL the effort. Patient does none of the effort to complete the activity. Or, the assistance of 2 or more helpers is required for the patient to complete the activity. If activity was not attempted, code reason: 7-Patient Refused. 9-Not Applicable-not attempted and the patient did not perform the activity before the current illness, exacerbation or injury. 10-Not Attempted due to Environmental Limitations-(lack of equipment, weather restraints, etc.). 88-Not Attempted due to Medical Conditions or Safety Concerns. Other Treatment Skilled instruction provided of BUE yellow theraband exercises. Pt requested to complete exercises while laying in bed due to increase fatigue. Pt completed x2 sets of 10 reps of BUE yellow theraband exercises to increase BUE strength for improved independence with ADLs such bathing and UB/LB dressing. Pt tolerated exercises well and required frequent resting break throughout session due to increase fatigue and low activity tolerance. After session, pt laying in bed. All needs met and call light in reach. Education OT Patient Education: Energy conservation, Exercise program, Home exercise program Teaching Recipient: Patient Teaching Methods: Demonstration, Handout, Discussion Response to Teaching: Verbalize Understanding, Return Demonstration OT Short Term Goals Short Term Goals Time Frame: Apr 20, 2021 Eatin Oral hygiene: 5 Toileting hygiene: 2 Shower/bathe self: 2 Upper body dressin Lower body dressin Putting on/taking off footwear: 2 OT Party Plan Sales Host/Hostess Goals Party Plan Sales Host/Hostess Goals Time Frame: May 04, 2021 Eating (QC): 6 Oral Hygiene (QC): 5 Toileting Hygiene (QC): 4 Shower/Bathe Self (QC): 4 Upper Body Dressing (QC): 5 Lower Body Dressing (QC): 4 On/Off Footwear (QC): 4 1=Demonstrate adherence to instructed precautions during ADL tasks. 2=Patient will verbalize/demonstrate understanding of assistive devices/modifications for ADL. 3=Patient will improve strength/tolerance for activity to enable patient to perform ADL's. OT Education/Plan Problem List/Assessment Assessment: Decreased Activ Tolerance, Decreased UE Strength, Impaired I ADL's, Impaired Self-Care Skills Discharge Recommendations Plan/Recommendations: Continue POC Treatment Plan/Plan of Care Patient would benefit from OT for education, treatment and training to promote independence in ADL's, mobility, safety and/or upper extremity function for ADL's. Plan of Care: ADL Retraining, Functional Mobility, Group Exercise/Act as Ind, UE Funct Exercise/Act, UE Neuromus Re-Ed/Coord, W/C Management Training Treatment Duration: May 04, 2021 Frequency: At least 5 of 7 days/Wk (IRF) Estimated Hrs Per Day: 1.5 hours per day Agreement: Yes Rehab Potential: Fair Time/GCodes Start Time: 10:25 Stop Time: 10:55 Total Time Billed (hr/min): 30 Billed Treatment Time 1 visit - EX 2 (30 mins) DESHAUN POSADA Apr 11, 2021 10:53
[2021-04-11] MEDS: IRON SUCROSE 200 MG/10 ML (VENOFER) VIAL IV SCH (11:46)
[2021-04-11 11:47] LABS: BASOPHILS # (AUTO) 0.1 10^3/uL (0.0-0.1); BASOPHILS % (AUTO) 1 % (0-10); EOSINOPHILS # (AUTO) 0.3 10^3/uL (0.0-0.3); EOSINOPHILS % (AUTO) 5 % (0-10); HEMATOCRIT 28 % (35-52); HEMOGLOBIN 8.5 g/dL (11.5-16.0); LYMPHOCYTES # (AUTO) 1.3 10^3/uL (1.0-4.0); LYMPHOCYTES % (AUTO) 26 % (12-44); MEAN CORPUSCULAR HEMOGLOBIN 31 pg (25-34); MEAN CORPUSCULAR HGB CONC 30 g/dL (32-36); MEAN CORPUSCULAR VOLUME 101 fL (80-99); MEAN PLATELET VOLUME 10.2 fL (9.0-12.2); MONOCYTES # (AUTO) 0.7 10^3/uL (0.0-1.0); MONOCYTES % (AUTO) 13 % (0-12); NEUTROPHILS # (AUTO) 2.8 10^3/uL (1.8-7.8); NEUTROPHILS % (AUTO) 55 % (42-75); PLATELET COUNT 225 10^3/uL (130-400); WHITE BLOOD COUNT 5.1 10^3/uL (4.3-11.0)
[2021-04-11] MEDS: SCOPOLAMINE 1.5 MG (TRANSDERM-SCOP) PATCH TD SCH (11:48)
[2021-04-11] MEDS ORDERED: ALTEPLASE 2 MG (CATHFLO) IV NR (12:00)
[2021-04-11 12:10] LABS: ALBUMIN 2.6 GM/DL (3.2-4.5); BILIRUBIN,TOTAL 0.4 MG/DL (0.1-1.0); CALCIUM 8.2 MG/DL (8.5-10.1); CREATININE SERUM 0.67 MG/DL (0.60-1.30); POTASSIUM 3.4 MMOL/L (3.6-5.0); TOTAL PROTEIN 4.4 GM/DL (6.4-8.2)
--- NOTE | 2021-04-11 16:55 | Wound Care Assessment ---
Wound Care Assessment Date Seen by Provider: Apr 11, 2021 Time Seen by Provider: 10:30 Chief Complaint Stage 4 pressure ulcer sacrum with acute osteomyelitis STEVEN Diehl is a pleasant young lady who had a severe case of COVID-19 resulting in subsequent stage 4 pressure ulceration with acute osteomyelitis. She presented to my office prior to hospital admission from a local nursing facility. In my office she was hypotensive, febrile and with N/V. She was referred to the emergency room for admission. She was admitted to the ICU with severe sepsis and required broad spectrum antibiotics, pressure support and aggressive rehydration. Bone culture and biopsy obtained along with wound culture. These confirmed Pseudomonas infection (also in urine) and acute osteomyelitis. She is greatly improved from admission and is now admitted to rehab for strengthening and continued wound care and IV antibiotics. On initial exam she did have a piece of bone that flaked off which was obtained for biopsy/culture. The underlying bone did not appear necrotic to myself. Surgery also did not deem necessary for ariel debridement. Her wound has dramatically improved with veraflow wound vac. Her wound is now small enough that the veraflow is no longer possible due to size constraints. Her wound measurements continue to decline. Today bone is still exposed (non-necrotic) but there is granulation tissue nearly covering. Wound bed appears pink and with good granulation. Plan to transition to conventional wound vac at this time. Past Medical History: Admits Diabetes Type II, Admits Heart Disease Smoking Status: Never a Smoker Alcohol Use: Denies Use Review of Systems General: Fatigue Exam Vital Signs Date Time Temp Pulse Resp B/P (MAP) Pulse Ox O2 Delivery O2 Flow Rate FiO2 04/11/21 14:12 94 Room Air 04/11/21 10:23 72 86/50 (62) 04/11/21 08:10 36.6 16 Capillary Refill : General Appearance: WD/WN, no apparent distress Respiratory: no respiratory distress, no accessory muscle use Extremities: no pedal edema Skin: normal color, warm/dry Skin Problem Location: torso (Wound assessment: 3.0x2.5x3.8 cm. The epithelialization is small, there is no tunneling or undermining, the drainage is large and serosanguinous, wound margins are epibole, granulation is large and pink and necrotic is small and slough. ) Skin Character: other Results Laboratory Tests 11/24/21 11:35: White Blood Count 5.1, Red Blood Count 2.78L, Hemoglobin 8.5L, Hematocrit 28L, Mean Corpuscular Volume 101H, Mean Corpuscular Hemoglobin 31, Mean Corpuscular Hemoglobin Concent 30L, Red Cell Distribution Width 16.4H, Platelet Count 225, Mean Platelet Volume 10.2, Immature Granulocyte % (Auto) 0, Neutrophils (%) (Auto) 55, Lymphocytes (%) (Auto) 26, Monocytes (%) (Auto) 13H, Eosinophils (%) (Auto) 5, Basophils (%) (Auto) 1, Neutrophils # (Auto) 2.8, Lymphocytes # (Auto) 1.3, Monocytes # (Auto) 0.7, Eosinophils # (Auto) 0.3, Basophils # (Auto) 0.1, Immature Granulocyte # (Auto) 0.0, Sodium Level 142, Potassium Level 3.4L, Chloride Level 112H, Carbon Dioxide Level 21, Anion Gap 9, Blood Urea Nitrogen 15, Creatinine 0.67, Estimat Glomerular Filtration Rate 99, BUN/Creatinine Ratio 22, Glucose Level 96, Calcium Level 8.2L, Corrected Calcium 9.3, Total Bilirubin 0.4, Aspartate Amino Transf (AST/SGOT) 21, Alanine Aminotransferase (ALT/SGPT) 14, Alkaline Phosphatase 74, Total Protein 4.4L, Albumin 2.6L Assessment/Plan/Dx Assessment: 1. Post COVID 19 stage 4 sacral pressure ulcer 2. Acute pseudomonal osteomyelitis 3. DM2 4. PEM 5. Generalized weakness Plan: 1. Targeted antibiotic therapy for 8 weeks. Defer changes to primary's capable hands if needed in future. 2. Appropriate off loading per turning and bedding 3. Transition to conventional wound vac. To be changed again on Friday by wound nurses. 4. Glycemic control for speed of wound healing. Defer diabetic changes to primary 5. High protein diet/supplements as indicated. 6. Increased strengthening per rehab personnel. 7. Liseth covered with hydrocolloid dressing to be changed twice weekly with wound vac changes to area of new injury. 8. If seal lost over the weekend, will do Vashe wet to dry packing twice daily covered with ABD until Friday ANKIT BERNABE MD Apr 11, 2021 16:55
[2021-04-11 18:23] VITALS: BP 111/64
[2021-04-11 19:44] VITALS: BP 101/53
[2021-04-11] MEDS: MELATONIN 10 MG TABLET PO SCH (21:17)
[2021-04-11] MEDS: CATHETER FLUSH 10 ML SYR IV SCH (21:23)
[2021-04-12] MEDS: CATHETER FLUSH 10 ML SYR IV SCH ×3 (06:30→22:18)
[2021-04-12] MEDS: CEFEPIME INJECTION 2,000 MG in NS (IVPB) 50 ML IV SCH ×3 (06:31→22:18)
[2021-04-12] MEDS: MULTIVIT W/MINERALS TAB (THERAGRAN M) PO SCH (06:31)
[2021-04-12] MEDS: LACTOBACILLUS Acidoph/Bulgar 1 GM (LACTINEX) PACKET PO SCH ×4 (06:31→21:49)
[2021-04-12] MEDS: VENlafaxine XR 75 MG (EFFEXOR XR) CAP PO SCH (06:31)
[2021-04-12 08:00] VITALS: BP 118/60
[2021-04-12 09:41] VITALS: BP 98/57
[2021-04-12] MEDS: FERROUS SULF 325 MG (IRON) TAB PO SCH (09:45)
[2021-04-12] MEDS: polyethylene glycoL POWDER 17 GM (MIRALAX) PACK PO SCH ×2 (09:45→21:52)
[2021-04-12] MEDS: OXYBUTYNIN (DITROPAN) 5 MG TAB PO SCH ×3 (09:45→21:49)
[2021-04-12] MEDS: SERTRALINE 50 MG (ZOLOFT) TABLET PO SCH (09:45)
[2021-04-12] MEDS: APIXABAN 5 MG (ELIQUIS) TABLET PO SCH ×2 (09:45→21:48)
[2021-04-12] MEDS: fluCOnazole (DIFLUCAN) 100 MG TAB PO SCH (09:45)
[2021-04-12] MEDS: MESALAMINE 250 MG (PENTASA) CAP PO SCH ×3 (09:45→21:48)
[2021-04-12] MEDS: COLLAGENASE 30 GM (SANTYL) TUBE TP SCH ×2 (09:46→21:53)
[2021-04-12] MEDS: HYDROcodone/APAP 7.5 MG/325 MG (LORTAB, LORCET PLUS) TABLET PO SCH ×4 (09:54→21:49)
--- NOTE | 2021-04-12 10:25 | PM&R Progress Note ---
Subjective HPI/CC On Admission Date Seen by Provider: Apr 12, 2021 Time Seen by Provider: 10:30 Subjective/Events-last exam 04/12/2021: Scopolamine patch working well Patient doing well Wound VAC maintained Check meds and labs No pain Eating and drinking well Scopolamine patch working well 04/11/2021: Patient doing well Fecal incontinence again last night Participating in therapy Wound VAC changed 04/10/2021: Patient doing well No major concerns PICC line dysfunction will be assessed Foot drop will be addressed with AFO Incontinent of bowel last night 04/09/2021: Patient doing really well Labs stable Hemoglobin 8.6 Wound VAC working well Getting ready to go the parallel bars with physical therapy 04/08/2021: Patient doing very well Was up 4 times yesterday out of bed Loose stools only has occurred once May need to use Questran as needed Check meds labs 04/07/2021: Patient doing very well We will get up in chair for lunch Hemoglobin 8.6 Bowels are moving now so on verge of constipation will change Questran to as needed no pain is reported Wound VAC tolerated well Review of Systems General: Fatigue Gastrointestinal: Nausea Objective Exam Vital Signs Vital Signs Date Time Temp Pulse Resp B/P (MAP) Pulse Ox O2 Delivery O2 Flow Rate FiO2 04/13/21 08:00 35.6 72 16 99/54 (69) 95 Room Air Capillary Refill : General Appearance: No Apparent Distress, WD/WN, Chronically ill, Other (pale, chronically ill) HEENT: PERRL/EOMI, Normal ENT Inspection, Pharynx Normal Neck: Full Range of Motion, Normal Inspection, Non Tender, Supple, Carotid Bruit Respiratory: Chest Non Tender, Lungs Clear, Normal Breath Sounds, No Accessory Muscle Use, No Respiratory Distress Cardiovascular: Regular Rate, Rhythm, No Edema, No Gallop, No JVD, No Murmur, Normal Peripheral Pulses Gastrointestinal: Normal Bowel Sounds, No Organomegaly, No Pulsatile Mass, Non Tender, Soft Back: Normal Inspection, No CVA Tenderness, No Vertebral Tenderness Extremity: Normal Capillary Refill, Normal Inspection, Normal Range of Motion, Non Tender, No Calf Tenderness, No Pedal Edema Neurologic/Psychiatric: Alert, Oriented x3, No Motor/Sensory Deficits, station chief II-XII Norm as Tested, Depressed Affect, Motor Weakness (3/5 upper 1/5 lower) Skin: Normal Color, Warm/Dry, Other (coccyx decubitus ulcer with wound vac) Lymphatic: No Adenopathy Results/Procedures Lab Patient resulted labs reviewed. FIM Transfers Therapy Code Descriptions/Definitions Functional [place] Measure: 0=Not Assessed/NA 4=Minimal Assistance 1=Total Assistance 5=Supervision or Setup 2=Maximal Assistance 6=Modified [place] 3=Moderate Assistance 7=Complete IndependenceSCALE: Activities may be completed with or without assistive devices. 7-Tmjoasdzjb-jsekwkd completes the activity by him/herself with no assistance from a helper. 5-Set-up or Clean-up Assistance-helper sets up or cleans up; patient completes activity. [place] assists only prior to or following the activity. 4-Supervision or Touching Assistance-helper provides verbal cues and/or touching/steadying and/or contact guard assistance as patient completes activi ty. Assistance may be provided throughout the activity or intermittently. 3-Partial/Moderate Assistance-helper does LESS THAN HALF the effort. [place] lifts, holds or supports trunk or limbs, but provides less than half the effort. 2-Substantial/Maximal Assistance-helper does MORE THAN HALF the effort. [place] lifts or holds trunk or limbs and provides more than half the effort. 1-Xvhbtpink-zcsden does ALL the effort. Patient does none of the effort to complete the activity. Or, the assistance of 2 or more helpers is required for the patient to complete the activity. If activity was not attempted, code reason: 7-Patient Refused. 9-Not Applicable-not attempted and the patient did not perform the activity before the current illness, exacerbation or injury. 10-Not Attempted due to Environmental Limitations-(lack of equipment, weather restraints, etc.). 88-Not Attempted due to Medical Conditions or Safety Concerns. Roll Left to Right (QC): 6 Sit to Lying (QC): 4 Sit to Stand (QC): 3 Chair/Kqv-am-Kcexm Xfer(QC): 3 Car Transfer (QC): 1 Gait Training Does the Patient Walk?: No and Walking Goal IS indicated Walk 10 feet (QC): 88 Walk 50 ft with 2 Turns(QC): 88 Walk 150 ft (QC): 88 Walking 10ft/uneven surface-QC: 88 Wheelchair Training Does the Pt Use a Wheelchair?: Yes Distance: 150 Wheel 50 ft with 2 turns (QC): 4 Wheel 150 ft (QC): 3 Type of Wheelchair: Manual Stair Training #of Steps: 0 1 Step (curb) (QC): 88 4 Steps (QC): 88 12 Steps (QC): 88 Balance Picking up an Object (QC): 88 ADL-Treatment Eating (QC): 5 Oral Hygiene (QC): 4 Shower/Bathe Self (QC): 1 Upper Body Dressing (QC): 4 Lower Body Dressing (QC): 1 On/Off Footwear (QC): 1 Toileting Hygiene (QC): 1 Toilet Transfer (QC): 1 Assessment/Plan Assessment and Plan Assess & Plan/Chief Complaint Assessment: Post Covid with deconditioning s/p severe sepsis Diarrhea Sacral decubitus ulcer Hypokalemia Anemia previous transfusion Anxiety and Depression Fernandez catheter 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 Ongoing nausea Plan: IV abx Wound vac PT OT Depression meds OAC 04/07/2021: Wound VAC Out of bed 04/08/2021: Out of bed Wound VAC 04/09/2021: Supportive care Dramatic improvement already 04/10/2021: Supportive care Fernandez catheter required although it is an infection risk 04/11/2021: Supportive care Wound VAC appreciated 04/12/2021: Scopolamine patch Wound VAC (1) Post covid-19 condition, unspecified Status: Chronic (2) Sacral decubitus ulcer, stage IV Status: Chronic (3) Severe sepsis Status: Acute (4) UTI (urinary tract infection) TERRA EDWARDS DO Apr 12, 2021 10:25
[2021-04-12] MEDS ORDERED: KCL 10 MEQ TAB (MICRO K) PO ONE ×2 (10:30→13:00)
--- NOTE | 2021-04-12 10:43 | Physical Therapy Daily Note ---
PT Daily Note-Current Subjective Pt. in bed with OT present, agrees to co-tx. Pt. with incontinence of bowel in bed. She c/o sacral pain, rated 6-7/10/ Mental Status Patient Orientation: Person, Place, Time, Situation Attachments: Fernandez Catheter sacral wound vac Transfers SCALE: Activities may be completed with or without assistive devices. 8-Wezpvezhcm-ehzknow completes the activity by him/herself with no assistance from a helper. 5-Set-up or Clean-up Assistance-helper sets up or cleans up; patient completes activity. [place] assists only prior to or following the activity. 4-Supervision or Touching Assistance-helper provides verbal cues and/or touching/steadying and/or contact guard assistance as patient completes activity. Assistance may be provided throughout the activity or intermittently. 3-Partial/Moderate Assistance-helper does LESS THAN HALF the effort. [place] lifts, holds or supports trunk or limbs, but provides less than half the effort. 2-Substantial/Maximal Assistance-helper does MORE THAN HALF the effort. [place] lifts or holds trunk or limbs and provides more than half the effort. 5-Xrnegkvhm-agcgvy does ALL the effort. Patient does none of the effort to complete the activity. Or, the assistance of 2 or more helpers is required for the patient to complete the activity. If activity was not attempted, code reason: 7-Patient Refused. 9-Not Applicable-not attempted and the patient did not perform the activity before the current illness, exacerbation or injury. 10-Not Attempted due to Environmental Limitations-(lack of equipment, weather restraints, etc.). 88-Not Attempted due to Medical Conditions or Safety Concerns. Roll Left & Right (QC): 4 Sit to Lying (QC): 4 Lying to Sitting/Side of Bed(Q: 3 Sit to Stand (QC): 2 Chair/Pai-gp-Xzssv Xfer(QC): 3 slide board transfer bed to/from w/c Weight Bearing Right Lower Extremity: Right Full Weight Bearing Left Lower Extremity: Left Full Weight Bearing Patient is cleared medically to bear weight through bilateral LEs, however due to prolonged illness and bed rest, patients LE's very weak and plantarflexion contractures bilaterally Wheelchair Training Does the Pt Use a Wheelchair?: Yes Wheel 50 ft with 2 turns (QC): 4 Type of Wheelchair: Manual Treatments Co-tx with OT from [id number] with OT working on ADLs, UE placement/strengthening while PT works on transfers, balance, LE exercises. Patient fatigues quickly during session thus continued need of co-treatment. Pt. was mod A to transfer supine to sit and demonstrates good sitting balance at EOB. She needed min A with slide board transfer to w/c, mod A when returning to bed. We worked on patient maneuvering w/c and applying brakes. Pt. stood in // bars x 5 with max A, PT cues needed for LE placement, OT working on UE placement. Pt. stood at max 30 sec in // bars and was able to fully stand erect. She is unable to get L heel on floor while standing due to contracture. Pt. had c/o dizziness on 1-2 occasions while standing but no n/v this date. Pt. returned to room, completed passive (B) LE passive stretching of hip flexors, quads, HS, gastroc/soleus. Pt. completed x 10 reps of s/l clams, GS, shoulder scaption AROM. Pt. remained in sidelying post session with pillow placed between knees, call light in reach and all needs met. Assessment Current Status: Good Progress Pt. is progressing well with therapy, requiring less therapist assist during transfers but continues to fatigue quickly with treatment. PT Short Term Goals Short Term Goals Time Frame: Apr 20, 2021 Roll Left & Right: 4 Sit to lyin Lying to sitting on side of be: 4 Sit to stand: 3 Chair/uxx-dc-llskb transfer: 3 Toilet transfer: 3 Car transfer: 3 Walk 10 feet: 2 Walk 50 feet with two turns: 1 Walk 150 feet: 1 Does pt use a wc or scooter: Yes Wheel 50ft w/2 turns: 5 Wheel 150 feet: 5 Type: Manual PT Director Of Science Goals [facility] Goals PT [facility] Goals Time Frame: May 18, 2021 Roll Left & Right (QC): 6 Sit to Lying (QC): 6 Lying-Sitting on Side/Bed(QC): 6 Sit to Stand (QC): 4 Chair/Hoi-xc-Yoszx Xfer(QC): 4 Toilet Transfer (QC): 4 Car Transfer (QC): 4 Does the Patient Walk: Yes Walk 10 feet (QC): 3 Walk 50ft with 2 Turns (QC): 3 Walk 150 ft (QC): 3 Walking 10ft on Uneven Surface: 3 1 Step (curb) (QC): 2 4 Steps (QC): 2 12 Steps (QC): 88 Picking up an Object (QC): 3 Does the Pt use WC or Scooter?: Yes Wheel 50 feet with 2 turns (QC: 6 Type: Manual Wheel 150 feet: 6 Type: Manual (6) PT Plan Treatment/Plan Treatment Plan: Continue Plan of Care Treatment Plan: Bed Mobility, Education, Functional Activity [place], Functional Strength, Group Therapy, Gait, Safety, Therapeutic Exercise, Transfers Treatment Duration: May 18, 2021 Frequency: At least 5 of 7 days/Wk (IRF) Estimated Hrs Per Day: 1.5 hours per day Patient and/or Family Agrees t: Yes Time/GCodes Time In: 0900 Time Out: 1030 Total Billed Treatment Time: 90 Total Billed Treatment 1, FA x 4, Ex x 2 (Co-tx with OT [id number]) LUCIE MONTES DE OCA PT Apr 12, 2021 10:42
[2021-04-12] MEDS: NYSTATIN CREAM (MYCOSTATIN) 30 GM TUBE TP SCH ×3 (12:07→21:52)
[2021-04-12] MEDS: MICONAZOLE 2% POWDER (DESENEX AF) 90 GM TOP SCH ×2 (12:07→21:52)
--- NOTE | 2021-04-12 13:15 | Occupational Ther Daily Note ---
OT Current Status-Daily Note Subjective Pt seen in room up in bed, agreeable to OT. Pain reported 5-6/10 and she said that initially she couldn't have pain meds because her BP was too low. Appearance Alert, cooperative Mental Status/Objective Attachments: Fernandez Catheter, Other-See Comments (Wound vac) ADL-Treatment Pt seen initially for ADLs by OT from 8:30 to 9:00 and then co-treated with PT, with OT focusing on UE function and ADLs, PT focusing on transfers, mobility. Co-tx needed due to weakness and decreased activity tolerance, as well as need for addressing multiple areas with two different professionals. Pt was side lying in bed to keep pressure off her bottom. Able to drink and feed herself small amount of breakfast. Brushed teeth and washed face and underarms with se tup. Pt was washing tsering area and noted that she had been incontinent of stool and was unable to clean herself. Pt worked on rolling side to side in bed while tsering controlled area checker. She doffed and donned hospital gown herself. Able to assist with placing legs in briefs and sweatpants and rolling/bridging to assist with pulling them up. Sat EOB and transferred to w/c using sliding board (see PT note for details). Some cues for hand placement with transfers. In gym, pt completed sit to stand x 5 reps, 3 pulling herself up using parallel pars and two with pushing up from arm rests on w/c. She needed cues for hand placement and for elbow extension for maintaining standing. Propelled w/c back to room using both arms and legs and transferred back into bed with sliding board. Assisted with rolling to get pants off. Wound vac plugged it. Pt left in care of PT. Therapy Code Descriptions/Definitions Functional [place] Measure: 0=Not Assessed/NA 4=Minimal Assistance 1=Total Assistance 5=Supervision or Setup 2=Maximal Assistance 6=Modified [place] 3=Moderate Assistance 7=Complete IndependenceSCALE: Activities may be completed with or without assistive devices. 8-Jtdtlovtax-ficzqao completes the activity by him/herself with no assistance from a helper. 5-Set-up or Clean-up Assistance-helper sets up or cleans up; patient completes activity. [place] assists only prior to or following the activity. 4-Supervision or Touching Assistance-helper provides verbal cues and/or touching/steadying and/or contact guard assistance as patient completes act ivity. Assistance may be provided throughout the activity or intermittently. 3-Partial/Moderate Assistance-helper does LESS THAN HALF the effort. [place] lifts, holds or supports trunk or limbs, but provides less than half the effort. 2-Substantial/Maximal Assistance-helper does MORE THAN HALF the effort. [place] lifts or holds trunk or limbs and provides more than half the effort. 9-Hbxpseqzm-ltjojf does ALL the effort. Patient does none of the effort to complete the activity. Or, the assistance of 2 or more helpers is required for the patient to complete the activity. If activity was not attempted, code reason: 7-Patient Refused. 9-Not Applicable-not attempted and the patient did not perform the activity before the current illness, exacerbation or injury. 10-Not Attempted due to Environmental Limitations-(lack of equipment, weather restraints, etc.). 88-Not Attempted due to Medical Conditions or Safety Concerns. Eating (QC): 5 Oral Hygiene (QC): 5 Lower Body Dressing (QC): 2 Education OT Patient Education: Modified ADL techniques, Progress toward Goal/Update tx plan, Purpose of tx/functional activities, Transfer techniques Teaching Recipient: Patient Teaching Methods: Demonstration, Discussion Response to Teaching: Verbalize Understanding, Return Demonstration OT Short Term Goals Short Term Goals Time Frame: Apr 20, 2021 Eatin Oral hygiene: 5 Toileting hygiene: 2 Shower/bathe self: 2 Upper body dressin Lower body dressin Putting on/taking off footwear: 2 OT Care Home Goals Care Home Goals Time Frame: May 04, 2021 Eating (QC): 6 Oral Hygiene (QC): 5 Toileting Hygiene (QC): 4 Shower/Bathe Self (QC): 4 Upper Body Dressing (QC): 5 Lower Body Dressing (QC): 4 On/Off Footwear (QC): 4 1=Demonstrate adherence to instructed precautions during ADL tasks. 2=Patient will verbalize/demonstrate understanding of assistive dev ices/modifications for ADL. 3=Patient will improve strength/tolerance for activity to enable patient to perform ADL's. OT Education/Plan Discharge Recommendations Plan/Recommendations: Continue POC Treatment Plan/Plan of Care Patient would benefit from OT for education, treatment and training to promote independence in ADL's, mobility, safety and/or upper extremity function for ADL's. Plan of Care: ADL Retraining, Functional Mobility, Group Exercise/Act as Ind, UE Funct Exercise/Act, UE Neuromus Re-Ed/Coord, W/C Management Training Treatment Duration: May 04, 2021 Frequency: At least 5 of 7 days/Wk (IRF) Estimated Hrs Per Day: 1.5 hours per day Agreement: Yes Rehab Potential: Fair Time/GCodes Start Time: 08:30 Stop Time: 10:00 Total Time Billed (hr/min): 90 Billed Treatment Time visit, ADL 30 minutes, function activity 60 minutes cotreat with PT JESUS PIERRE OT Apr 12, 2021 13:15
[2021-04-12] MEDS: ATENOLOL 25 MG (TENORMIN) TAB PO SCH ×2 (16:44→21:52)
[2021-04-12 19:18] VITALS: BP 100/67
[2021-04-12] MEDS: MELATONIN 10 MG TABLET PO SCH (21:48)
[2021-04-13] MEDS: CATHETER FLUSH 10 ML SYR IV SCH ×3 (06:10→21:13)
[2021-04-13] MEDS: LACTOBACILLUS Acidoph/Bulgar 1 GM (LACTINEX) PACKET PO SCH ×4 (06:10→21:13)
[2021-04-13] MEDS: MULTIVIT W/MINERALS TAB (THERAGRAN M) PO SCH (06:10)
[2021-04-13] MEDS: CEFEPIME INJECTION 2,000 MG in NS (IVPB) 50 ML IV SCH ×3 (06:10→21:13)
[2021-04-13] MEDS: VENlafaxine XR 75 MG (EFFEXOR XR) CAP PO SCH (06:10)
[2021-04-13] MEDS: KCL 10 MEQ TAB (MICRO K) PO SCH (06:11)
[2021-04-13 08:00] VITALS: BP 99/54
--- NOTE | 2021-04-13 09:09 | Occupational Ther Daily Note ---
OT Current Status-Daily Note Subjective Pt Denies pain, agreeable to treatment. Co-treat with PT needed for part of session ([id number]) due to weakness, decreased activity tolerance, high fall risk, as well as need for addressing multiple areas with 2 different professionals. Appearance Pt left supine in bed with physical therapy present. Mental Status/Objective Attachments: Drains, Fernandez Catheter, IV wound vac ADL-Treatment Therapy Code Descriptions/Definitions Functional [place] Measure: 0=Not Assessed/NA 4=Minimal Assistance 1=Total Assistance 5=Supervision or Setup 2=Maximal Assistance 6=Modified [place] 3=Moderate Assistance 7=Complete IndependenceSCALE: Activities may be completed with or without assistive devices. 3-Jfvtokrkzx-tbwwcnp completes the activity by him/herself with no assistance from a helper. 5-Set-up or Clean-up Assistance-helper sets up or cleans up; patient completes activity. [place] assists only prior to or following the activity. 4-Supervision or Touching Assistance-helper provides verbal cues and/or touching/steadying and/or contact guard assistance as patient completes activity. Assistance may be provided throughout the activity or intermittently. 3-Partial/Moderate Assistance-helper does LESS THAN HALF the effort. [place] lifts, holds or supports trunk or limbs, but provides less than half the effort. 2-Substantial/Maximal Assistance-helper does MORE THAN HALF the effort. [place] lifts or holds trunk or limbs and provides more than half the effort. 1-Qxfleidyq-tmavqq does ALL the effort. Patient does none of the effort to complete the activity. Or, the assistance of 2 or more helpers is required for the patient to complete the activity. If activity was not attempted, code reason: 7-Patient Refused. 9-Not Applicable-not attempted and the patient did not perform the activity before the current illness, exacerbation or injury. 10-Not Attempted due to Environmental Limitations-(lack of equipment, weather restraints, etc.). 88-Not Attempted due to Medical Conditions or Safety Concerns. Upper Body Dressing (QC): 4 Lower Body Dressing (QC): 3 On/Off Footwear: 3 Toileting Hygiene (QC): 1 Toilet Transfer (QC): 1 Pt resting in bed at OT arrival. Incontinent of bowels contained in brief. Dep to clean. Dressings tasks performed sitting EOB. Improved supine>sit, only needing minimal assistance to fully elevate trunk. Supervision only for sitting balance when donning shirt overhead. Improved use of real estate economist when threading BLE's into LB clothing. Mod a required to manage brief over feet, min a to thread pants. Pt able to return to supine and perform bridging of hips while managing clothing up to waist. No assistance required for clothing management. OT issued and instructed pt on use of sock aid when donning socks. Post instruction, only min assist needed to adjust sock at ankles and to lift LLE off floor. Other Treatment Slide board transfer bed>w/c CGA-Min a; min-mod a from w/c>bed. Min reminders on feet/hand placement throughout transfer. Pt completed sit<>stands x3 with emphasis on improving LE strength, balance, endurance, and standing tolerance. Goal to increase standing time with each attempt. Times included: 0:40, 0:37, and 0:51. Lengthy rest breaks needed in between each standing bout. See PT note regarding balance assist in standing. Intermittent tactile/verbal cues for upright posture and improving ROSALINDA. Pt then completed leg press; 10x2. Assist of second person to maintain legs on wedge. Education OT Patient Education: Correct positioning, Energy conservation, Modified ADL techniques, Progress toward Goal/Update tx plan, Purpose of tx/functional activities, Rehab process, Safety issues, Transfer techniques, Use of adapted equipment, W/C management Teaching Recipient: Patient Teaching Methods: Demonstration, Discussion Response to Teaching: Verbalize Understanding, Return Demonstration OT Short Term Goals Short Term Goals Time Frame: Apr 20, 2021 Eatin Oral hygiene: 5 Toileting hygiene: 2 Shower/bathe self: 2 Upper body dressin Lower body dressin Putting on/taking off footwear: 2 OT Skilled Nursing Goals Skilled Nursing Goals Time Frame: May 04, 2021 Eating (QC): 6 Oral Hygiene (QC): 5 Toileting Hygiene (QC): 4 Shower/Bathe Self (QC): 4 Upper Body Dressing (QC): 5 Lower Body Dressing (QC): 4 On/Off Footwear (QC): 4 1=Demonstrate adherence to instructed precautions during ADL tasks. 2=Patient will verbalize/demonstrate understanding of assistive devices/modifications for ADL. 3=Patient will improve strength/tolerance for activity to enable patient to perform ADL's. OT Education/Plan Problem List/Assessment Assessment: Decreased Activ Tolerance, Decreased UE Strength, Impaired Funct Balance, Impaired I ADL's, Impaired Self-Care Skills, Restricted Funct UE ROM Discharge Recommendations Plan/Recommendations: Continue POC Treatment Plan/Plan of Care Treatment,Training & Education: Yes Patient would benefit from OT for education, treatment and training to promote independence in ADL's, mobility, safety and/or upper extremity function for ADL's. Plan of Care: ADL Retraining, Functional Mobility, Group Exercise/Act as Ind, UE Funct Exercise/Act, UE Neuromus Re-Ed/Coord, W/C Management Training Treatment Duration: May 04, 2021 Frequency: At least 5 of 7 days/Wk (IRF) Estimated Hrs Per Day: 1.5 hours per day Agreement: Yes Rehab Potential: Fair Time/GCodes Start Time: 07:55 Stop Time: 09:00 Total Time Billed (hr/min): 65 Billed Treatment Time 1 visit ADL x2 (35 min) FA x2 (30 min) co-treat with PT for 35 min Latoya Becker OT Apr 13, 2021 09:09
--- NOTE | 2021-04-13 09:31 | Physical Therapy Daily Note ---
PT Daily Note-Current Subjective Pt sitting EOB w/ OT upon arrival of PT and agrees to co-treat. Reports sacral pain but does not rate. Mental Status Patient Orientation: Person, Place, Time, Situation Attachments: Fernandez Catheter, Other-See Comments (wound vac.) Transfers SCALE: Activities may be completed with or without assistive devices. 5-Ipvxewbrgd-rwkgbck completes the activity by him/herself with no assistance from a helper. 5-Set-up or Clean-up Assistance-helper sets up or cleans up; patient completes activity. [place] assists only prior to or following the activity. 4-Supervision or Touching Assistance-helper provides verbal cues and/or touching/steadying and/or contact guard assistance as patient completes activity. Assistance may be provided throughout the activity or intermittently. 3-Partial/Moderate Assistance-helper does LESS THAN HALF the effort. [place] lifts, holds or supports trunk or limbs, but provides less than half the effort. 2-Substantial/Maximal Assistance-helper does MORE THAN HALF the effort. [place] lifts or holds trunk or limbs and provides more than half the effort. 3-Lmduwcimx-vkgohu does ALL the effort. Patient does none of the effort to complete the activity. Or, the assistance of 2 or more helpers is required for the patient to complete the activity. If activity was not attempted, code reason: 7-Patient Refused. 9-Not Applicable-not attempted and the patient did not perform the activity before the current illness, exacerbation or injury. 10-Not Attempted due to Environmental Limitations-(lack of equipment, weather restraints, etc.). 88-Not Attempted due to Medical Conditions or Safety Concerns. Sit to Stand (QC): 3 Chair/Qum-yh-Pdqgs Xfer(QC): 4 Weight Bearing Right Lower Extremity: Right Full Weight Bearing Left Lower Extremity: Left Full Weight Bearing Patient is cleared medically to bear weight through bilateral LEs, however due to prolonged illness and bed rest, patients LE's very weak and plantarflexion contractures bilaterally Gait Training Does the Patient Walk?: No and Walking Goal IS indicated Pt only able to stand at this time d/t weakness and fatiguing very quickly Wheelchair Training Does the Pt Use a Wheelchair?: Yes Pt able to maneuver WC and unlock/lock brakes Exercises Supine Ex: Ankle pumps, Quad Set, Glut sets, Heel Slides, Scooting, Straight leg raise, Hip abd/add Supine Reps: 10 Seated Therapy Exercises: Ankle pumps, Long arc quads, Hip flexion, Hamstring Curls Seated Reps: 10 Standing: Sit to Stand Standing Reps: 5 Pt completes dymanic standing activity in // bars x 3 and then completes leg press for 2x10. PT performs PROM stretch on LLE for contracture. 3x1' Treatments Slide board transfer bed>w/c CGA-Min a; min-mod a from w/c>bed. Min reminders on feet/hand placement throughout transfer. Pt completed sit<>stands x3 with emphasis on improving LE strength, balance, endurance, and standing tolerance. Goal to increase standing time with each attempt. Times included: 0:40, 0:37, and 0:51. Lengthy rest breaks needed in between each standing bout. Pt requires [place]/CGA for balance during standing activities in // bars. Intermittent tactile/verbal cues for upright posture and improving ROSALINDA. Pt then completed leg press; 10x2. Assist of second person to maintain legs on wedge. Pt then performs slide board TFs w/c>bed CGA/Farhat. OT assists pt don gown then assists pt into bed. PT then performs supine exs. Assessment Current Status: Good Progress Pt LLE contracture remains about the same which limits pt standing time d/t majority of weight being shifted to RLE. Pt in bed upon departure call light nearby and all needs met. PT Short Term Goals Short Term Goals Time Frame: Apr 20, 2021 Roll Left & Right: 4 Sit to lyin Lying to sitting on side of be: 4 Sit to stand: 3 Chair/frd-ro-odnbj transfer: 3 Toilet transfer: 3 Car transfer: 3 Walk 10 feet: 2 Walk 50 feet with two turns: 1 Walk 150 feet: 1 Does pt use a wc or scooter: Yes Wheel 50ft w/2 turns: 5 Wheel 150 feet: 5 Type: Manual PT Cyber Security Goals Cyber Security Goals PT Cyber Security Goals Time Frame: May 18, 2021 Roll Left & Right (QC): 6 Sit to Lying (QC): 6 Lying-Sitting on Side/Bed(QC): 6 Sit to Stand (QC): 4 Chair/Sfg-li-Maxdv Xfer(QC): 4 Toilet Transfer (QC): 4 Car Transfer (QC): 4 Does the Patient Walk: Yes Walk 10 feet (QC): 3 Walk 50ft with 2 Turns (QC): 3 Walk 150 ft (QC): 3 Walking 10ft on Uneven Surface: 3 1 Step (curb) (QC): 2 4 Steps (QC): 2 12 Steps (QC): 88 Picking up an Object (QC): 3 Does the Pt use WC or Scooter?: Yes Wheel 50 feet with 2 turns (QC: 6 Type: Manual Wheel 150 feet: 6 Type: Manual (6) PT Plan Problem List Problem List: Activity Tolerance, Functional Strength, Safety, Balance Treatment/Plan Treatment Plan: Continue Plan of Care Treatment Plan: Bed Mobility, Education, Functional Activity [place], Functional Strength, Group Therapy, Gait, Safety, Therapeutic Exercise, Transfers Treatment Duration: May 18, 2021 Frequency: At least 5 of 7 days/Wk (IRF) Estimated Hrs Per Day: 1.5 hours per day Patient and/or Family Agrees t: Yes Safety Risks/Education Patient Education: Gait Training, Transfer Techniques, Correct Positioning Teaching Recipient: Patient Teaching Methods: Discussion Response to Teaching: Return Demonstration Time/GCodes Time In: 825 Time Out: 925 Total Billed Treatment Time: 60 Total Billed Treatment 1, FA x 2 (30 min), EX x 2 (30min) MIGDALIA BRIGGS PTA Apr 13, 2021 09:31
[2021-04-13] MEDS: polyethylene glycoL POWDER 17 GM (MIRALAX) PACK PO SCH ×2 (09:51→21:21)
[2021-04-13] MEDS: FERROUS SULF 325 MG (IRON) TAB PO SCH (09:59)
[2021-04-13] MEDS: SERTRALINE 50 MG (ZOLOFT) TABLET PO SCH (09:59)
[2021-04-13] MEDS: IRON SUCROSE 200 MG/10 ML (VENOFER) VIAL IV SCH (09:59)
[2021-04-13] MEDS: fluCOnazole (DIFLUCAN) 100 MG TAB PO SCH (09:59)
[2021-04-13] MEDS: HYDROcodone/APAP 7.5 MG/325 MG (LORTAB, LORCET PLUS) TABLET PO SCH ×4 (09:59→21:12)
[2021-04-13] MEDS: ATENOLOL 25 MG (TENORMIN) TAB PO SCH ×2 (09:59→19:41)
[2021-04-13] MEDS: MESALAMINE 250 MG (PENTASA) CAP PO SCH ×3 (09:59→21:12)
[2021-04-13] MEDS: APIXABAN 5 MG (ELIQUIS) TABLET PO SCH ×2 (09:59→21:12)
[2021-04-13] MEDS: OXYBUTYNIN (DITROPAN) 5 MG TAB PO SCH ×3 (09:59→21:12)
--- NOTE | 2021-04-13 10:42 | PM&R Progress Note ---
Subjective HPI/CC On Admission Date Seen by Provider: Apr 13, 2021 Time Seen by Provider: 11:20 Subjective/Events-last exam 04/13/21: Patient doing well Scop patch resolving the nausea Pain controlled Wound vac changed No issues 04/12/2021: Scopolamine patch working well Patient doing well Wound VAC maintained Check meds and labs No pain Eating and drinking well Scopolamine patch working well 04/11/2021: Patient doing well Fecal incontinence again last night Participating in therapy Wound VAC changed 04/10/2021: Patient doing well No major concerns PICC line dysfunction will be assessed Foot drop will be addressed with AFO Incontinent of bowel last night 04/09/2021: Patient doing really well Labs stable Hemoglobin 8.6 Wound VAC working well Getting ready to go the parallel bars with physical therapy 04/08/2021: Patient doing very well Was up 4 times yesterday out of bed Loose stools only has occurred once May need to use Questran as needed Check meds labs 04/07/2021: Patient doing very well We will get up in chair for lunch Hemoglobin 8.6 Bowels are moving now so on verge of constipation will change Questran to as needed no pain is reported Wound VAC tolerated well Review of Systems General: Fatigue Pulmonary: Dyspnea Objective Exam Vital Signs Vital Signs Date Time Temp Pulse Resp B/P (MAP) Pulse Ox O2 Delivery O2 Flow Rate FiO2 04/13/21 09:00 Room Air 04/13/21 08:00 35.6 72 16 99/54 (69) 95 Capillary Refill : General Appearance: No Apparent Distress, WD/WN, Chronically ill, Other (pale, chronically ill) HEENT: PERRL/EOMI, Normal ENT Inspection, Pharynx Normal Neck: Full Range of Motion, Normal Inspection, Non Tender, Supple, Carotid Bruit Respiratory: Chest Non Tender, Lungs Clear, Normal Breath Sounds, No Accessory Muscle Use, No Respiratory Distress Cardiovascular: Regular Rate, Rhythm, No Edema, No Gallop, No JVD, No Murmur, Normal Peripheral Pulses Gastrointestinal: Normal Bowel Sounds, No Organomegaly, No Pulsatile Mass, Non Tender, Soft Back: Normal Inspection, No CVA Tenderness, No Vertebral Tenderness Extremity: Normal Capillary Refill, Normal Inspection, Normal Range of Motion, Non Tender, No Calf Tenderness, No Pedal Edema Neurologic/Psychiatric: Alert, Oriented x3, No Motor/Sensory Deficits, 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 FIM Transfers Therapy Code Descriptions/Definitions Functional [place] Measure: 0=Not Assessed/NA 4=Minimal Assistance 1=Total Assistance 5=Supervision or Setup 2=Maximal Assistance 6=Modified [place] 3=Moderate Assistance 7=Complete IndependenceSCALE: Activities may be completed with or without assistive devices. 6-Kbwpkbnfvy-lqekiln completes the activity by him/herself with no assistance from a helper. 5-Set-up or Clean-up Assistance-helper sets up or cleans up; patient completes activity. [place] assists only prior to or following the activity. 4-Supervision or Touching Assistance-helper provides verbal cues and/or touching/steadying and/or contact guard assistance as patient completes activity . Assistance may be provided throughout the activity or intermittently. 3-Partial/Moderate Assistance-helper does LESS THAN HALF the effort. [place] lifts, holds or supports trunk or limbs, but provides less than half the effort. 2-Substantial/Maximal Assistance-helper does MORE THAN HALF the effort. [place] lifts or holds trunk or limbs and provides more than half the effort. 0-Fidgcuoqq-poydsw does ALL the effort. Patient does none of the effort to complete the activity. Or, the assistance of 2 or more helpers is required for the patient to complete the activity. If activity was not attempted, code reason: 7-Patient Refused. 9-Not Applicable-not attempted and the patient did not perform the activity before the current illness, exacerbation or injury. 10-Not Attempted due to Environmental Limitations-(lack of equipment, weather restraints, etc.). 88-Not Attempted due to Medical Conditions or Safety Concerns. Roll Left to Right (QC): 4 Sit to Lying (QC): 4 Sit to Stand (QC): 3 Chair/Afc-tp-Grxqs Xfer(QC): 4 Car Transfer (QC): 1 Gait Training Does the Patient Walk?: No and Walking Goal IS indicated Walk 10 feet (QC): 88 Walk 50 ft with 2 Turns(QC): 88 Walk 150 ft (QC): 88 Walking 10ft/uneven surface-QC: 88 Wheelchair Training Does the Pt Use a Wheelchair?: Yes Distance: 150 Wheel 50 ft with 2 turns (QC): 4 Wheel 150 ft (QC): 3 Type of Wheelchair: Manual Stair Training #of Steps: 0 1 Step (curb) (QC): 88 4 Steps (QC): 88 12 Steps (QC): 88 Balance Picking up an Object (QC): 88 ADL-Treatment Eating (QC): 5 Oral Hygiene (QC): 5 Shower/Bathe Self (QC): 1 Upper Body Dressing (QC): 4 Lower Body Dressing (QC): 3 On/Off Footwear (QC): 3 Toileting Hygiene (QC): 1 Toilet Transfer (QC): 1 Assessment/Plan Assessment and Plan Assess & Plan/Chief Complaint Assessment: Post Covid with deconditioning s/p severe sepsis Diarrhea Sacral decubitus ulcer Hypokalemia Anemia previous transfusion Anxiety and Depression Fernandez catheter 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 Ongoing nausea Plan: IV abx Wound vac PT OT Depression meds OAC 04/07/2021: Wound VAC Out of bed 04/08/2021: Out of bed Wound VAC 04/09/2021: Supportive care Dramatic improvement already 04/10/2021: Supportive care Fernandez catheter required although it is an infection risk 04/11/2021: Supportive care Wound VAC appreciated 04/12/2021: Scopolamine patch Wound VAC 04/13/21: Scop patch Monitor pain (1) Post covid-19 condition, unspecified Status: Chronic (2) Sacral decubitus ulcer, stage IV Status: Chronic (3) Severe sepsis Status: Acute (4) UTI (urinary tract infection) TERRA EDWARDS DO Apr 13, 2021 10:42
--- NOTE | 2021-04-13 12:59 | Therapy Group Daily Note ---
Therapy Daily Group Note Patient Education Topic Home Safety, Other List Below (ARU expectations) Exercises LE Seated Exercise, Sit to/from Stand, UE Exercise Session Ratio (pt:therapist): 4:1 Goal of Session: Education on ARU Expectations, Home Safety Strategies, UE/LE Strengthing Goal Met for this Session: Yes Pt Benefit of Group: Contributions to Others, Increased Functional Strength, Socialization Other/Notes Pt. participated in group session this date. Pt. came to from group via w/c and required assist of 1 for sld brd TRFs in out bed. Pts. introduced themselves and shared their home towns and an accomplishment in their lives they are proud of. U&L extremity seated exercises were done, sit to stand safety and technique instructions were done and each patient stood , CGA. Explanation of ARU and goals were taught . Education regarding simulation of home and setting goals to return home considering your exact situation was addressed with each participant. Pt. returned to room with assist, needs met and call bonilla at side Start Time: 11:00 Stop Time: 12:00 Total Billed Treatment Time: 60 Total Billed Treatment 1,GRP KRISSY SHEPHERD YARD JOCKEY Apr 13, 2021 12:58
[2021-04-13] MEDS: NYSTATIN CREAM (MYCOSTATIN) 30 GM TUBE TP SCH ×3 (13:20→19:41)
[2021-04-13] MEDS: MICONAZOLE 2% POWDER (DESENEX AF) 90 GM TOP SCH ×2 (13:20→19:41)
[2021-04-13] MEDS: COLLAGENASE 30 GM (SANTYL) TUBE TP SCH ×2 (13:20→19:41)
[2021-04-13 19:39] VITALS: BP 98/55
[2021-04-13] MEDS: MELATONIN 10 MG TABLET PO SCH (21:12)
[2021-04-14] MEDS: CATHETER FLUSH 10 ML SYR IV SCH ×3 (06:21→21:17)
[2021-04-14] MEDS: MULTIVIT W/MINERALS TAB (THERAGRAN M) PO SCH (06:21)
[2021-04-14] MEDS: CEFEPIME INJECTION 2,000 MG in NS (IVPB) 50 ML IV SCH ×3 (06:21→21:17)
[2021-04-14] MEDS: VENlafaxine XR 75 MG (EFFEXOR XR) CAP PO SCH (06:21)
[2021-04-14] MEDS: LACTOBACILLUS Acidoph/Bulgar 1 GM (LACTINEX) PACKET PO SCH ×4 (06:21→21:16)
[2021-04-14] MEDS: KCL 10 MEQ TAB (MICRO K) PO SCH (06:22)
--- NOTE | 2021-04-14 06:53 | PM&R Progress Note ---
Subjective HPI/CC On Admission Date Seen by Provider: Apr 14, 2021 Time Seen by Provider: 12:45 Subjective/Events-last exam 04/14/2021: Patient doing very well today Stood with a walker today at bedside No pain is reported Wound VAC in place 04/13/21: Patient doing well Scop patch resolving the nausea Pain controlled Wound vac changed No issues 04/12/2021: Scopolamine patch working well Patient doing well Wound VAC maintained Check meds and labs No pain Eating and drinking well Scopolamine patch working well 04/11/2021: Patient doing well Fecal incontinence again last night Participating in therapy Wound VAC changed 04/10/2021: Patient doing well No major concerns PICC line dysfunction will be assessed Foot drop will be addressed with AFO Incontinent of bowel last night 04/09/2021: Patient doing really well Labs stable Hemoglobin 8.6 Wound VAC working well Getting ready to go the parallel bars with physical therapy 04/08/2021: Patient doing very well Was up 4 times yesterday out of bed Loose stools only has occurred once May need to use Questran as needed Check meds labs 04/07/2021: Patient doing very well We will get up in chair for lunch Hemoglobin 8.6 Bowels are moving now so on verge of constipation will change Questran to as needed no pain is reported Wound VAC tolerated well Review of Systems General: Fatigue, Malaise Objective Exam Vital Signs Vital Signs Date Time Temp Pulse Resp B/P (MAP) Pulse Ox O2 Delivery O2 Flow Rate FiO2 04/14/21 21:24 Room Air 04/14/21 21:00 36.4 75 16 112/60 (77) 99 Capillary Refill : General Appearance: No Apparent Distress, WD/WN, Chronically ill, Other (pale, chronically ill) HEENT: PERRL/EOMI, Normal ENT Inspection, Pharynx Normal Neck: Full Range of Motion, Normal Inspection, Non Tender, Supple, Carotid Bruit Respiratory: Chest Non Tender, Lungs Clear, Normal Breath Sounds, No Accessory Muscle Use, No Respiratory Distress Cardiovascular: Regular Rate, Rhythm, No Edema, No Gallop, No JVD, No Murmur, Normal Peripheral Pulses Gastrointestinal: Normal Bowel Sounds, No Organomegaly, No Pulsatile Mass, Non Tender, Soft Back: Normal Inspection, No CVA Tenderness, No Vertebral Tenderness Extremity: Normal Capillary Refill, Normal Inspection, Normal Range of Motion, Non Tender, No Calf Tenderness, No Pedal Edema Neurologic/Psychiatric: Alert, Oriented x3, No Motor/Sensory Deficits, family program specialist II- XII Norm as Tested, Depressed Affect, Motor Weakness (3/5 upper 1/5 lower) Skin: Normal Color, Warm/Dry, Other (coccyx decubitus ulcer with wound vac) Lymphatic: No Adenopathy Results/Procedures Lab Patient resulted labs reviewed. FIM Transfers Therapy Code Descriptions/Definitions Functional [place] Measure: 0=Not Assessed/NA 4=Minimal Assistance 1=Total Assistance 5=Supervision or Setup 2=Maximal Assistance 6=Modified [place] 3=Moderate Assistance 7=Complete IndependenceSCALE: Activities may be completed with or without assistive devices. 5-Ofmjmhmhvl-poinabx completes the activity by him/herself with no assistance from a helper. 5-Set-up or Clean-up Assistance-helper sets up or cleans up; patient completes activity. [place] assists only prior to or following the activity. 4-Supervision or Touching Assistance-helper provides verbal cues and/or touching/steadying and/or contact guard assistance as patient completes activity. Assistance may be provided throughout the activity or intermittently. 3-Partial/Moderate Assistance-helper does LESS THAN HALF the effort. [place] lift s, holds or supports trunk or limbs, but provides less than half the effort. 2-Substantial/Maximal Assistance-helper does MORE THAN HALF the effort. [place] lifts or holds trunk or limbs and provides more than half the effort. 6-Uoaykuanb-hqcpry does ALL the effort. Patient does none of the effort to complete the activity. Or, the assistance of 2 or more helpers is required for the patient to complete the activity. If activity was not attempted, code reason: 7-Patient Refused. 9-Not Applicable-not attempted and the patient did not perform the activity before the current illness, exacerbation or injury. 10-Not Attempted due to Environmental Limitations-(lack of equipment, weather restraints, etc.). 88-Not Attempted due to Medical Conditions or Safety Concerns. Roll Left to Right (QC): 4 Sit to Lying (QC): 4 Sit to Stand (QC): 3 Chair/Ucc-tz-Xsglw Xfer(QC): 4 Car Transfer (QC): 1 Gait Training Does the Patient Walk?: No and Walking Goal IS indicated Walk 10 feet (QC): 88 Walk 50 ft with 2 Turns(QC): 88 Walk 150 ft (QC): 88 Walking 10ft/uneven surface-QC: 88 Wheelchair Training Does the Pt Use a Wheelchair?: Yes Distance: 150 Wheel 50 ft with 2 turns (QC): 4 Wheel 150 ft (QC): 3 Type of Wheelchair: Manual Stair Training #of Steps: 0 1 Step (curb) (QC): 88 4 Steps (QC): 88 12 Steps (QC): 88 Balance Picking up an Object (QC): 88 ADL-Treatment Eating (QC): 5 Oral Hygiene (QC): 5 Shower/Bathe Self (QC): 1 Upper Body Dressing (QC): 4 Lower Body Dressing (QC): 3 On/Off Footwear (QC): 3 Toileting Hygiene (QC): 1 Toilet Transfer (QC): 1 Assessment/Plan Assessment and Plan Assess & Plan/Chief Complaint Assessment: Post Covid with deconditioning s/p severe sepsis Diarrhea Sacral decubitus ulcer Hypokalemia Anemia previous transfusion Anxiety and Depression Fernandez catheter 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 Ongoing nausea improved Scopolamine patch Plan: IV abx Wound vac PT OT Depression meds OAC 04/07/2021: Wound VAC Out of bed 04/08/2021: Out of bed Wound VAC 04/09/2021: Supportive care Dramatic improvement already 04/10/2021: Supportive care Fernandez catheter required although it is an infection risk 04/11/2021: Supportive care Wound VAC appreciated 04/12/2021: Scopolamine patch Wound VAC 04/13/21: Scop patch Monitor pain 04/14/2021: Supportive care Wound VAC (1) Post covid-19 condition, unspecified Status: Chronic (2) Sacral decubitus ulcer, stage IV Status: Chronic (3) Severe sepsis Status: Acute (4) UTI (urinary tract infection) TERRA EDWARDS DO Apr 14, 2021 06:53
[2021-04-14 07:48] VITALS: BP 103/56
--- NOTE | 2021-04-14 09:43 | Physical Therapy Daily Note ---
PT Daily Note-Current Subjective Patient lying supine in bed upon PT arrival, agreeable to treatment but reports she is very tired and didn't sleep well last night. Transfers SCALE: Activities may be completed with or without assistive devices. 1-Nptkwusypg-xhvkztj completes the activity by him/herself with no assistance from a helper. 5-Set-up or Clean-up Assistance-helper sets up or cleans up; patient completes activity. [place] assists only prior to or following the activity. 4-Supervision or Touching Assistance-helper provides verbal cues and/or touching/steadying and/or contact guard assistance as patient completes activity. Assistance may be provided throughout the activity or intermittently. 3-Partial/Moderate Assistance-helper does LESS THAN HALF the effort. [place] lifts, holds or supports trunk or limbs, but provides less than half the effort. 2-Substantial/Maximal Assistance-helper does MORE THAN HALF the effort. [place] l ifts or holds trunk or limbs and provides more than half the effort. 7-Kopocdokn-qtgfaa does ALL the effort. Patient does none of the effort to complete the activity. Or, the assistance of 2 or more helpers is required for the patient to complete the activity. If activity was not attempted, code reason: 7-Patient Refused. 9-Not Applicable-not attempted and the patient did not perform the activity before the current illness, exacerbation or injury. 10-Not Attempted due to Environmental Limitations-(lack of equipment, weather restraints, etc.). 88-Not Attempted due to Medical Conditions or Safety Concerns. Roll Left & Right (QC): 4 Sit to Lying (QC): 4 Lying to Sitting/Side of Bed(Q: 4 Sit to Stand (QC): 2 Weight Bearing Right Lower Extremity: Right Full Weight Bearing Left Lower Extremity: Left Full Weight Bearing Patient is cleared medically to bear weight through bilateral LEs, however due to prolonged illness and bed rest, patients LE's very weak and plantarflexion contractures bilaterally Gait Training Does the Patient Walk?: No and Walking Goal IS indicated Exercises Supine Ex: Ankle pumps, Quad Set, Glut sets Supine Reps: 20 Seated Therapy Exercises: Long arc quads, Hip flexion, Hamstring Curls, Hip abd/add Seated Reps: 10 Standing Reps: 4 Treatments Performed sit to stand with static stance at FWW to improve function and increase independence. Assessment Current Status: Fair Progress Patient tolerated treatment well despite reporting increased fatigue. Patient performs LE therapeutic exercise in supine, then sitting at edge of bed post functional activity. Patient performs sit to stand with max A and performs 4 reps. Patient demonstrates significant difficulty maintaining TKE in the left LE due to PF contracture and is unable to move left ankle into neutral. Right ankle appears to come much closer to neutral and she is able to place most of the weight through her right LE. Patient in bed post treatment per her request with all needs met, nursing notified, call light in reach. PT Short Term Goals Short Term Goals Time Frame: Apr 20, 2021 Roll Left & Right: 4 Sit to lyin Lying to sitting on side of be: 4 Sit to stand: 3 Chair/fif-sf-djmbq transfer: 3 Toilet transfer: 3 Car transfer: 3 Walk 10 feet: 2 Walk 50 feet with two turns: 1 Walk 150 feet: 1 Does pt use a wc or scooter: Yes Wheel 50ft w/2 turns: 5 Wheel 150 feet: 5 Type: Manual PT Mcc Goals Mcc Goals PT Mcc Goals Time Frame: May 18, 2021 Roll Left & Right (QC): 6 Sit to Lying (QC): 6 Lying-Sitting on Side/Bed(QC): 6 Sit to Stand (QC): 4 Chair/Dsa-hh-Lgatv Xfer(QC): 4 Toilet Transfer (QC): 4 Car Transfer (QC): 4 Does the Patient Walk: Yes Walk 10 feet (QC): 3 Walk 50ft with 2 Turns (QC): 3 Walk 150 ft (QC): 3 Walking 10ft on Uneven Surface: 3 1 Step (curb) (QC): 2 4 Steps (QC): 2 12 Steps (QC): 88 Picking up an Object (QC): 3 Does the Pt use WC or Scooter?: Yes Wheel 50 feet with 2 turns (QC: 6 Type: Manual Wheel 150 feet: 6 Type: Manual (6) PT Plan Treatment/Plan Treatment Plan: Continue Plan of Care Treatment Plan: Bed Mobility, Education, Functional Activity [place], Functional Strength, Group Therapy, Gait, Safety, Therapeutic Exercise, Transfers Treatment Duration: May 18, 2021 Frequency: At least 5 of 7 days/Wk (IRF) Estimated Hrs Per Day: 1.5 hours per day Patient and/or Family Agrees t: Yes Safety Risks/Education Patient Education: Transfer Techniques, Safety Issues Teaching Recipient: Patient Teaching Methods: Demonstration, Discussion Response to Teaching: Verbalize Understanding, Return Demonstration Time/GCodes Time In: 904 Time Out: 930 Total Billed Treatment Time: 26 Total Billed Treatment Visit, TIMMY, JAYME PAR[place] PT Apr 14, 2021 09:43
[2021-04-14] MEDS: SCOPOLAMINE 1.5 MG (TRANSDERM-SCOP) PATCH TD SCH (10:19)
[2021-04-14] MEDS: HYDROcodone/APAP 7.5 MG/325 MG (LORTAB, LORCET PLUS) TABLET PO SCH ×4 (10:21→21:16)
[2021-04-14] MEDS: fluCOnazole (DIFLUCAN) 100 MG TAB PO SCH (10:21)
[2021-04-14] MEDS: OXYBUTYNIN (DITROPAN) 5 MG TAB PO SCH ×3 (10:21→21:16)
[2021-04-14] MEDS: MESALAMINE 250 MG (PENTASA) CAP PO SCH ×3 (10:21→21:16)
[2021-04-14] MEDS: APIXABAN 5 MG (ELIQUIS) TABLET PO SCH ×2 (10:22→21:16)
[2021-04-14] MEDS: FERROUS SULF 325 MG (IRON) TAB PO SCH (10:22)
[2021-04-14] MEDS: ATENOLOL 25 MG (TENORMIN) TAB PO SCH ×2 (10:22→21:16)
[2021-04-14] MEDS: SERTRALINE 50 MG (ZOLOFT) TABLET PO SCH (10:22)
[2021-04-14] MEDS: polyethylene glycoL POWDER 17 GM (MIRALAX) PACK PO SCH ×2 (10:30→21:23)
[2021-04-14] MEDS: MICONAZOLE 2% POWDER (DESENEX AF) 90 GM TOP SCH ×2 (10:30→21:23)
[2021-04-14] MEDS: NYSTATIN CREAM (MYCOSTATIN) 30 GM TUBE TP SCH ×3 (10:31→21:24)
[2021-04-14] MEDS: COLLAGENASE 30 GM (SANTYL) TUBE TP SCH ×2 (10:31→20:59)
[2021-04-14] MEDS: SCOPOLAMINE PATCH REMOVAL TP SCH (10:31)
[2021-04-14 21:00] VITALS: BP 112/60
[2021-04-14] MEDS: MELATONIN 10 MG TABLET PO SCH (21:15)
[2021-04-15] MEDS: KCL 10 MEQ TAB (MICRO K) PO SCH (06:08)
[2021-04-15] MEDS: LACTOBACILLUS Acidoph/Bulgar 1 GM (LACTINEX) PACKET PO SCH ×4 (06:08→20:34)
[2021-04-15] MEDS: VENlafaxine XR 75 MG (EFFEXOR XR) CAP PO SCH (06:08)
[2021-04-15] MEDS: MULTIVIT W/MINERALS TAB (THERAGRAN M) PO SCH (06:08)
[2021-04-15] MEDS: CATHETER FLUSH 10 ML SYR IV SCH ×3 (06:10→21:04)
[2021-04-15] MEDS: CEFEPIME INJECTION 2,000 MG in NS (IVPB) 50 ML IV SCH ×3 (06:10→21:04)
[2021-04-15 09:26] VITALS: BP 107/62
[2021-04-15] MEDS: fluCOnazole (DIFLUCAN) 100 MG TAB PO SCH (09:28)
[2021-04-15] MEDS: MESALAMINE 250 MG (PENTASA) CAP PO SCH ×3 (09:28→20:32)
[2021-04-15] MEDS: OXYBUTYNIN (DITROPAN) 5 MG TAB PO SCH ×3 (09:28→20:33)
[2021-04-15] MEDS: IRON SUCROSE 200 MG/10 ML (VENOFER) VIAL IV SCH (09:28)
[2021-04-15] MEDS: ATENOLOL 25 MG (TENORMIN) TAB PO SCH ×2 (09:28→20:33)
[2021-04-15] MEDS: HYDROcodone/APAP 7.5 MG/325 MG (LORTAB, LORCET PLUS) TABLET PO SCH ×4 (09:29→20:32)
[2021-04-15] MEDS: FERROUS SULF 325 MG (IRON) TAB PO SCH (09:29)
[2021-04-15] MEDS: APIXABAN 5 MG (ELIQUIS) TABLET PO SCH ×2 (09:29→20:32)
[2021-04-15] MEDS: SERTRALINE 50 MG (ZOLOFT) TABLET PO SCH (09:29)
[2021-04-15] MEDS: COLLAGENASE 30 GM (SANTYL) TUBE TP SCH ×2 (09:30→20:38)
[2021-04-15] MEDS: polyethylene glycoL POWDER 17 GM (MIRALAX) PACK PO SCH ×2 (09:30→19:23)
[2021-04-15] MEDS: MICONAZOLE 2% POWDER (DESENEX AF) 90 GM TOP SCH ×2 (09:36→20:38)
[2021-04-15] MEDS: NYSTATIN CREAM (MYCOSTATIN) 30 GM TUBE TP SCH ×3 (09:36→20:38)
[2021-04-15] MEDS: CHOLESTYRAMINE 4 GM (QUESTRAN LITE, PREVALITE) PKT PO PRN (10:24)
--- NOTE | 2021-04-15 13:07 | PM&R Progress Note ---
Subjective HPI/CC On Admission Date Seen by Provider: Apr 15, 2021 Time Seen by Provider: 13:10 Subjective/Events-last exam 04/15/2021: Patient doing very well Visitors today No pain is reported Wound VAC in place Fecal incontinence continues 04/14/2021: Patient doing very well today Stood with a walker today at bedside No pain is reported Wound VAC in place 04/13/21: Patient doing well Scop patch resolving the nausea Pain controlled Wound vac changed No issues 04/12/2021: Scopolamine patch working well Patient doing well Wound VAC maintained Check meds and labs No pain Eating and drinking well Scopolamine patch working well 04/11/2021: Patient doing well Fecal incontinence again last night Participating in therapy Wound VAC changed 04/10/2021: Patient doing well No major concerns PICC line dysfunction will be assessed Foot drop will be addressed with AFO Incontinent of bowel last night 04/09/2021: Patient doing really well Labs stable Hemoglobin 8.6 Wound VAC working well Getting ready to go the parallel bars with physical therapy 04/08/2021: Patient doing very well Was up 4 times yesterday out of bed Loose stools only has occurred once May need to use Questran as needed Check meds labs 04/07/2021: Patient doing very well We will get up in chair for lunch Hemoglobin 8.6 Bowels are moving now so on verge of constipation will change Questran to as needed no pain is reported Wound VAC tolerated well Review of Systems General: Fatigue, Malaise Objective Exam Vital Signs Vital Signs Date Time Temp Pulse Resp B/P (MAP) Pulse Ox O2 Delivery O2 Flow Rate FiO2 04/15/21 21:39 Room Air 04/15/21 20:38 36.4 85 18 104/69 (81) 100 Capillary Refill : General Appearance: No Apparent Distress, WD/WN, Chronically ill, Other (pale, chronically ill) HEENT: PERRL/EOMI, Normal ENT Inspection, Pharynx Normal Neck: Full Range of Motion, Normal Inspection, Non Tender, Supple, Carotid Bruit Respiratory: Chest Non Tender, Lungs Clear, Normal Breath Sounds, No Accessory Muscle Use, No Respiratory Distress Cardiovascular: Regular Rate, Rhythm, No Edema, No Gallop, No JVD, No Murmur, Normal Peripheral Pulses Gastrointestinal: Normal Bowel Sounds, No Organomegaly, No Pulsatile Mass, Non Tender, Soft Back: Normal Inspection, No CVA Tenderness, No Vertebral Tenderness Extremity: Normal Capillary Refill, Normal Inspection, Normal Range of Motion, Non Tender, No Calf Tenderness, No Pedal Edema Neurologic/Psychiatric: Alert, Oriented x3, No Motor/Sensory Deficits, cycle counter II- XII Norm as Tested, Depressed Affect, Motor Weakness (3/5 upper 1/5 lower) Skin: Normal Color, Warm/Dry, Other (coccyx decubitus ulcer with wound vac) Lymphatic: No Adenopathy Results/Procedures Lab Patient resulted labs reviewed. FIM Transfers Therapy Code Descriptions/Definitions Functional [place] Measure: 0=Not Assessed/NA 4=Minimal Assistance 1=Total Assistance 5=Supervision or Setup 2=Maximal Assistance 6=Modified [place] 3=Moderate Assistance 7=Complete IndependenceSCALE: Activities may be completed with or without assistive devices. 2-Nrzkoovhsf-isonnyu completes the activity by him/herself with no assistance from a helper. 5-Set-up or Clean-up Assistance-helper sets up or cleans up; patient completes activity. [place] assists only prior to or following the activity. 4-Supervision or Touching Assistance-helper provides verbal cues and/or touching/steadying and/or contact guard assistance as patient completes activity. Assistance may be provided throughout the activity or intermittently. 3-Partial/Moderate Assistance-helper does LESS THAN HALF the effort. [place] lifts, holds or supports trunk or limbs, but provides less than half the effort. 2-Substantial/Maximal Assistance-helper does MORE THAN HALF the effort. [place] lifts or holds trunk or limbs and provides more than half the effort. 6-Qrfkvveom-abjlre does ALL the effort. Patient does none of the effort to complete the activity. Or, the assistance of 2 or more helpers is required for the patient to complete the activity. If activity was not attempted, code reason: 7-Patient Refused. 9-Not Applicable-not attempted and the patient did not perform the activity before the current illness, exacerbation or injury. 10-Not Attempted due to Environmental Limitations-(lack of equipment, weather restraints, etc.). 88-Not Attempted due to Medical Conditions or Safety Concerns. Roll Left to Right (QC): 4 Sit to Lying (QC): 4 Sit to Stand (QC): 2 Chair/Sez-hm-Enhky Xfer(QC): 4 Car Transfer (QC): 1 Gait Training Does the Patient Walk?: No and Walking Goal IS indicated Walk 10 feet (QC): 88 Walk 50 ft with 2 Turns(QC): 88 Walk 150 ft (QC): 88 Walking 10ft/uneven surface-QC: 88 Wheelchair Training Does the Pt Use a Wheelchair?: Yes Distance: 150 Wheel 50 ft with 2 turns (QC): 4 Wheel 150 ft (QC): 3 Type of Wheelchair: Manual Stair Training #of Steps: 0 1 Step (curb) (QC): 88 4 Steps (QC): 88 12 Steps (QC): 88 Balance Picking up an Object (QC): 88 ADL-Treatment Eating (QC): 5 Oral Hygiene (QC): 5 Shower/Bathe Self (QC): 1 Upper Body Dressing (QC): 4 Lower Body Dressing (QC): 3 On/Off Footwear (QC): 3 Toileting Hygiene (QC): 1 Toilet Transfer (QC): 1 Assessment/Plan Assessment and Plan Assess & Plan/Chief Complaint Assessment: Post Covid with deconditioning s/p severe sepsis Diarrhea Sacral decubitus ulcer Hypokalemia Anemia previous transfusion Anxiety and Depression Fernandez catheter 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 Ongoing nausea improved Scopolamine patch Plan: IV abx Wound vac PT OT Depression meds OAC 04/07/2021: Wound VAC Out of bed 04/08/2021: Out of bed Wound VAC 04/09/2021: Supportive care Dramatic improvement already 04/10/2021: Supportive care Fernandez catheter required although it is an infection risk 04/11/2021: Supportive care Wound VAC appreciated 04/12/2021: Scopolamine patch Wound VAC 04/13/21: Scop patch Monitor pain 04/14/2021: Supportive care Wound VAC 04/14/2021: Wound VAC Fecal incontinence management (1) Post covid-19 condition, unspecified Status: Chronic (2) Sacral decubitus ulcer, stage IV Status: Chronic (3) Severe sepsis Status: Acute (4) UTI (urinary tract infection) TERRA EDWARDS DO Apr 15, 2021 13:07
[2021-04-15] MEDS: MELATONIN 10 MG TABLET PO SCH (20:32)
[2021-04-15 20:38] VITALS: BP 104/69
[2021-04-16] MEDS: LACTOBACILLUS Acidoph/Bulgar 1 GM (LACTINEX) PACKET PO SCH ×4 (06:08→21:21)
[2021-04-16] MEDS: CEFEPIME INJECTION 2,000 MG in NS (IVPB) 50 ML IV SCH ×3 (06:08→21:19)
[2021-04-16] MEDS: KCL 10 MEQ TAB (MICRO K) PO SCH (06:08)
[2021-04-16] MEDS: VENlafaxine XR 75 MG (EFFEXOR XR) CAP PO SCH (06:08)
[2021-04-16] MEDS: MULTIVIT W/MINERALS TAB (THERAGRAN M) PO SCH (06:08)
[2021-04-16] MEDS: CATHETER FLUSH 10 ML SYR IV SCH ×3 (06:11→21:19)
[2021-04-16 06:31] LABS: BASOPHILS # (AUTO) 0.1 10^3/uL (0.0-0.1); BASOPHILS % (AUTO) 2 % (0-10); EOSINOPHILS # (AUTO) 0.5 10^3/uL (0.0-0.3); EOSINOPHILS % (AUTO) 7 % (0-10); HEMATOCRIT 31 % (35-52); HEMOGLOBIN 9.5 g/dL (11.5-16.0); LYMPHOCYTES % (AUTO) 47 % (12-44); MEAN CORPUSCULAR HEMOGLOBIN 31 pg (25-34); MEAN CORPUSCULAR HGB CONC 31 g/dL (32-36); MEAN CORPUSCULAR VOLUME 101 fL (80-99); MEAN PLATELET VOLUME 9.8 fL (9.0-12.2); MONOCYTES # (AUTO) 0.7 10^3/uL (0.0-1.0); MONOCYTES % (AUTO) 11 % (0-12); NEUTROPHILS # (AUTO) 2.1 10^3/uL (1.8-7.8); NEUTROPHILS % (AUTO) 32 % (42-75); PLATELET COUNT 323 10^3/uL (130-400); WHITE BLOOD COUNT 6.4 10^3/uL (4.3-11.0)
[2021-04-16 06:45] LABS: ALBUMIN 2.7 GM/DL (3.2-4.5); BILIRUBIN,TOTAL 0.3 MG/DL (0.1-1.0); CALCIUM 8.4 MG/DL (8.5-10.1); CREATININE SERUM 0.72 MG/DL (0.60-1.30); TOTAL PROTEIN 4.7 GM/DL (6.4-8.2)
[2021-04-16] MEDS: ONDANSETRON 4 MG/2 ML (SDV) Z0FRAN IVP PRN (08:18)
--- NOTE | 2021-04-16 08:45 | PM&R Progress Note ---
Subjective HPI/CC On Admission Date Seen by Provider: Apr 16, 2021 Time Seen by Provider: 11:00 Subjective/Events-last exam 04/16/2021: Pt having some nausea Wound vac came off yesterday, replacing that today IV Zofran given for nausea Garett will restart the wound vac Consulting urology for bladder spasms 04/15/2021: Patient doing very well Visitors today No pain is reported Wound VAC in place Fecal incontinence continues 04/14/2021: Patient doing very well today Stood with a walker today at bedside No pain is reported Wound VAC in place 04/13/21: Patient doing well Scop patch resolving the nausea Pain controlled Wound vac changed No issues 04/12/2021: Scopolamine patch working well Patient doing well Wound VAC maintained Check meds and labs No pain Eating and drinking well Scopolamine patch working well 04/11/2021: Patient doing well Fecal incontinence again last night Participating in therapy Wound VAC changed 04/10/2021: Patient doing well No major concerns PICC line dysfunction will be assessed Foot drop will be addressed with AFO Incontinent of bowel last night 04/09/2021: Patient doing really well Labs stable Hemoglobin 8.6 Wound VAC working well Getting ready to go the parallel bars with physical therapy 04/08/2021: Patient doing very well Was up 4 times yesterday out of bed Loose stools only has occurred once May need to use Questran as needed Check meds labs 04/07/2021: Patient doing very well We will get up in chair for lunch Hemoglobin 8.6 Bowels are moving now so on verge of constipation will change Questran to as needed no pain is reported Wound VAC tolerated well Review of Systems General: Fatigue, Malaise Objective Exam Vital Signs Vital Signs Date Time Temp Pulse Resp B/P (MAP) Pulse Ox O2 Delivery O2 Flow Rate FiO2 04/16/21 21:36 98 Room Air 04/16/21 20:18 36.7 84 18 104/58 (73) Capillary Refill : General Appearance: No Apparent Distress, WD/WN, Chronically ill, Other (pale, chronically ill) HEENT: PERRL/EOMI, Normal ENT Inspection, Pharynx Normal Neck: Full Range of Motion, Normal Inspection, Non Tender, Supple, Carotid Bruit Respiratory: Chest Non Tender, Lungs Clear, Normal Breath Sounds, No Accessory Muscle Use, No Respiratory Distress Cardiovascular: Regular Rate, Rhythm, No Edema, No Gallop, No JVD, No Murmur, Normal Peripheral Pulses Gastrointestinal: Normal Bowel Sounds, No Organomegaly, No Pulsatile Mass, Non Tender, Soft Back: Normal Inspection, No CVA Tenderness, No Vertebral Tenderness Extremity: Normal Capillary Refill, Normal Inspection, Normal Range of Motion, Non Tender, No Calf Tenderness, No Pedal Edema Neurologic/Psychiatric: Alert, Oriented x3, No Motor/Sensory Deficits, cargo operations agent II- XII Norm as Tested, Depressed Affect, Motor Weakness (3/5 upper 1/5 lower) Skin: Normal Color, Warm/Dry, Other (coccyx decubitus ulcer with wound vac) Lymphatic: No Adenopathy Results/Procedures Lab Laboratory Tests 04/16/21 06:15 Patient resulted labs reviewed. FIM Transfers Therapy Code Descriptions/Definitions Functional [place] Measure: 0=Not Assessed/NA 4=Minimal Assistance 1=Total Assistance 5=Supervision or Setup 2=Maximal Assistance 6=Modified [place] 3=Moderate Assistance 7=Complete IndependenceSCALE: Activities may be completed with or without assistive devices. 6-Huaapsrcep-nxliqap completes the activity by him/herself with no assistance from a helper. 5-Set-up or Clean-up Assistance-helper sets up or cleans up; patient completes activity. [place] assists only prior to or following the activity. 4-Supervision or Touching Assistance-helper provides verbal cues and/or to uching/steadying and/or contact guard assistance as patient completes activity. Assistance may be provided throughout the activity or intermittently. 3-Partial/Moderate Assistance-helper does LESS THAN HALF the effort. [place] lifts, holds or supports trunk or limbs, but provides less than half the effort. 2-Substantial/Maximal Assistance-helper does MORE THAN HALF the effort. [place] lifts or holds trunk or limbs and provides more than half the effort. 0-Lxenaimwr-uqcpgm does ALL the effort. Patient does none of the effort to complete the activity. Or, the assistance of 2 or more helpers is required for the patient to complete the activity. If activity was not attempted, code reason: 7-Patient Refused. 9-Not Applicable-not attempted and the patient did not perform the activity before the current illness, exacerbation or injury. 10-Not Attempted due to Environmental Limitations-(lack of equipment, weather restraints, etc.). 88-Not Attempted due to Medical Conditions or Safety Concerns. Roll Left to Right (QC): 4 Sit to Lying (QC): 4 Sit to Stand (QC): 2 Chair/Rbz-vh-Nzmqe Xfer(QC): 4 Car Transfer (QC): 1 Gait Training Does the Patient Walk?: No and Walking Goal IS indicated Walk 10 feet (QC): 88 Walk 50 ft with 2 Turns(QC): 88 Walk 150 ft (QC): 88 Walking 10ft/uneven surface-QC: 88 Wheelchair Training Does the Pt Use a Wheelchair?: Yes Distance: 150 Wheel 50 ft with 2 turns (QC): 4 Wheel 150 ft (QC): 3 Type of Wheelchair: Manual Stair Training #of Steps: 0 1 Step (curb) (QC): 88 4 Steps (QC): 88 12 Steps (QC): 88 Balance Picking up an Object (QC): 88 ADL-Treatment Eating (QC): 5 Oral Hygiene (QC): 5 Shower/Bathe Self (QC): 1 Upper Body Dressing (QC): 4 Lower Body Dressing (QC): 3 On/Off Footwear (QC): 3 Toileting Hygiene (QC): 1 Toilet Transfer (QC): 1 Assessment/Plan Assessment and Plan Assess & Plan/Chief Complaint Assessment: Post Covid with deconditioning s/p severe sepsis Diarrhea Sacral decubitus ulcer Hypokalemia Anemia previous transfusion Anxiety and Depression Fernandez catheter 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 Ongoing nausea improved Scopolamine patch Plan: IV abx Wound vac PT OT Depression meds OAC 04/07/2021: Wound VAC Out of bed 04/08/2021: Out of bed Wound VAC 04/09/2021: Supportive care Dramatic improvement already 04/10/2021: Supportive care Fernandez catheter required although it is an infection risk 04/11/2021: Supportive care Wound VAC appreciated 04/12/2021: Scopolamine patch Wound VAC 04/13/21: Scop patch Monitor pain 04/14/2021: Supportive care Wound VAC 04/14/2021: Wound VAC Fecal incontinence management 04/15/2021: Wound VAC management Continue depression treatment 04/16/2021: Supportive care Change wound VAC (1) Post covid-19 condition, unspecified Status: Chronic (2) Sacral decubitus ulcer, stage IV Status: Chronic (3) Severe sepsis Status: Acute (4) UTI (urinary tract infection) TERRA EDWARDS DO Apr 16, 2021 08:45
[2021-04-16] MEDS: MICONAZOLE 2% POWDER (DESENEX AF) 90 GM TOP SCH ×2 (09:00→21:31)
[2021-04-16] MEDS: COLLAGENASE 30 GM (SANTYL) TUBE TP SCH ×2 (09:00→21:32)
[2021-04-16] MEDS: polyethylene glycoL POWDER 17 GM (MIRALAX) PACK PO SCH ×2 (09:00→21:24)
[2021-04-16] MEDS: NYSTATIN CREAM (MYCOSTATIN) 30 GM TUBE TP SCH ×3 (09:00→21:32)
--- NOTE | 2021-04-16 09:00 | Physical Therapy Daily Note ---
PT Daily Note-Current Subjective Pt. in bed asleep upon arrival with breakfast sitting in tray . Pt. states she will try to sit up to eat but is having some nausea and thinks it may be from a UTI. Pt. is emotional today and says she wished she wasnt . PT OT co Rx this Rx secondary to poor activity tolerance and need for coordination of functional activity with 2 skilled clinicians. Pain Location: No Pain Reported Appearance noted significant foot drop left >right. Pt. shivering at 1st which subsided. Nursing notified of nausea and brought meds . Mental Status Patient Orientation: Normal For Age Attachments: Fernandez Catheter, Other-See Comments (lines at LUE) multi podus boot left donned at end of Rx Transfers SCALE: Activities may be completed with or without assistive devices. 5-Oqbfflzlia-mhzimev completes the activity by him/herself with no assistance from a helper. 5-Set-up or Clean-up Assistance-helper sets up or cleans up; patient completes activity. [place] assists only prior to or following the activity. 4-Supervision or Touching Assistance-helper provides verbal cues and/or touching/steadying and/or contact guard assistance as patient completes activity. Assistance may be provided throughout the activity or intermittently. 3-Partial/Moderate Assistance-helper does LESS THAN HALF the effort. [place] lif ts, holds or supports trunk or limbs, but provides less than half the effort. 2-Substantial/Maximal Assistance-helper does MORE THAN HALF the effort. [place] lifts or holds trunk or limbs and provides more than half the effort. 9-Ucwndqpkl-tnyfmz does ALL the effort. Patient does none of the effort to complete the activity. Or, the assistance of 2 or more helpers is required for the patient to complete the activity. If activity was not attempted, code reason: 7-Patient Refused. 9-Not Applicable-not attempted and the patient did not perform the activity before the current illness, exacerbation or injury. 10-Not Attempted due to Environmental Limitations-(lack of equipment, weather restraints, etc.). 88-Not Attempted due to Medical Conditions or Safety Concerns. Roll Left & Right (QC): 6 Sit to Lying (QC): 5 Lying to Sitting/Side of Bed(Q: 5 Chair/Ilr-dj-Etqao Xfer(QC): 4 slide brd TRF bed to shower chair and back with mod to min assist to slide , pt. using UEs very well with good technique, placemnt of brd max assist Weight Bearing Right Lower Extremity: Right Full Weight Bearing Left Lower Extremity: Left Full Weight Bearing Patient is cleared medically to bear weight through bilateral LEs, however due to prolonged illness and bed rest, patients LE's very weak and plantarflexion contractures bilaterally Exercises Supine Ex: Ankle pumps (HC stretch 5 x 25 sec x 2 sessions) Seated Therapy Exercises: Ankle pumps Treatments attempted shower PT OT with pt. having poor tolerance and needed to exit shower before Rx was complete secondary to nausea etc. Pt. wheeled to bed for TRF julianna k to bed Assessment Current Status: Fair Progress limited participation due to nausea and fatigue PT Short Term Goals Short Term Goals Time Frame: Apr 20, 2021 Roll Left & Right: 4 Sit to lyin Lying to sitting on side of be: 4 Sit to stand: 3 Chair/gft-bz-htxgl transfer: 3 Toilet transfer: 3 Car transfer: 3 Walk 10 feet: 2 Walk 50 feet with two turns: 1 Walk 150 feet: 1 Does pt use a wc or scooter: Yes Wheel 50ft w/2 turns: 5 Wheel 150 feet: 5 Type: Manual PT Director Environmental Goals Care Home Goals PT Care Home Goals Time Frame: May 18, 2021 Roll Left & Right (QC): 6 Sit to Lying (QC): 6 Lying-Sitting on Side/Bed(QC): 6 Sit to Stand (QC): 4 Chair/Bow-nf-Ymxld Xfer(QC): 4 Toilet Transfer (QC): 4 Car Transfer (QC): 4 Does the Patient Walk: Yes Walk 10 feet (QC): 3 Walk 50ft with 2 Turns (QC): 3 Walk 150 ft (QC): 3 Walking 10ft on Uneven Surface: 3 1 Step (curb) (QC): 2 4 Steps (QC): 2 12 Steps (QC): 88 Picking up an Object (QC): 3 Does the Pt use WC or Scooter?: Yes Wheel 50 feet with 2 turns (QC: 6 Type: Manual Wheel 150 feet: 6 Type: Manual (6) PT Plan Treatment/Plan Treatment Plan: Continue Plan of Care Treatment Plan: Bed Mobility, Education, Functional Activity John [place], Functional Strength, Group Therapy, Gait, Safety, Therapeutic Exercise, Transfers Treatment Duration: May 18, 2021 Frequency: At least 5 of 7 days/Wk (IRF) Estimated Hrs Per Day: 1.5 hours per day Patient and/or Family Agrees t: Yes Safety Risks/Education Patient Education: Transfer Techniques, Correct Positioning, Disease Process, Safety Issues Teaching Recipient: Patient Teaching Methods: Demonstration, Discussion Response to Teaching: Verbalize Understanding, Return Demonstration, Reinforcement Needed Time/GCodes Time In: 800 Time Out: 900 Total Billed Treatment Time: 60 Total Billed Treatment 1,EX15m,FA45m (60 m co Rx) KRISSY SHEPHERD MACHINE GRAINER Apr 16, 2021 09:00
--- NOTE | 2021-04-16 09:08 | Occupational Ther Daily Note ---
OT Current Status-Daily Note Subjective Pt denies pain, requests shower. Co-treat with PT needed due to weakness, decreased activity tolerance, high fall risk, as well as need for addressing multiple areas with 2 different professionals. Appearance Pt returned to supine in bed, all needs within reach, RN notified. Mental Status/Objective Attachments: Fernandez Catheter, IV ADL-Treatment Therapy Code Descriptions/Definitions Functional [place] Measure: 0=Not Assessed/NA 4=Minimal Assistance 1=Total Assistance 5=Supervision or Setup 2=Maximal Assistance 6=Modified [place] 3=Moderate Assistance 7=Complete IndependenceSCALE: Activities may be completed with or without assistive devices. 3-Uiyqcsclpn-nmnfijg completes the activity by him/herself with no assistance from a helper. 5-Set-up or Clean-up Assistance-helper sets up or cleans up; patient completes activity. [place] assists only prior to or following the activity. 4-Supervision or Touching Assistance-helper provides verbal cues and/or touching/steadying and/or contact guard assistance as patient completes activity. Assistance may be provided throughout the activity or intermittently. 3-Partial/Moderate Assistance-helper does LESS THAN HALF the effort. [place] lifts, holds or supports trunk or limbs, but provides less than half the effort. 2-Substantial/Maximal Assistance-helper does MORE THAN HALF the effort. [place] lifts or holds trunk or limbs and provides more than half the effort. 2-Uxnyxyorj-tcozwi does ALL the effort. Patient does none of the effort to complete the activity. Or, the assistance of 2 or more helpers is required for the patient to complete the activity. If activity was not attempted, code reason: 7-Patient Refused. 9-Not Applicable-not attempted and the patient did not perform the activity before the current illness, exacerbation or injury. 10-Not Attempted due to Environmental Limitations-(lack of equipment, weather restraints, etc.). 88-Not Attempted due to Medical Conditions or Safety Concerns. Eating (QC): 6 On/Off Footwear: 1 Pt eating breakfast at OT arrival. She requests shower. RN agreeable. Able to sit EOB with SBA. Slide board transfer from bed>shower w/c with min-mod a. Extra assist/time secondary to c/o nausea. Once sitting in chair, pt c/o increase in nausea and bladder spasms. RN notified and meds given. Pt wanting to push through and attempt shower. Once in shower, pt verbalizes feelings of lightheadedness and possibility of passing out. OT discontinued activity despite pt's requests to continue. Dep to dry bottom half of body and don socks secondary to symptoms noted previously. Pt returned to supine. Assist to wash tsering area and buttocks while in sidelying. Several breaks needed due to bladder spasms. Education OT Patient Education: Modified ADL techniques, Progress toward Goal/Update tx plan, Rehab process, Safety issues, Transfer techniques Teaching Recipient: Patient Teaching Methods: Discussion Response to Teaching: Verbalize Understanding OT Short Term Goals Short Term Goals Time Frame: Apr 20, 2021 Eatin Oral hygiene: 5 Toileting hygiene: 2 Shower/bathe self: 2 Upper body dressin Lower body dressin Putting on/taking off footwear: 2 OT Web Site Developer Goals Web Site Developer Goals Time Frame: May 04, 2021 Eating (QC): 6 Oral Hygiene (QC): 5 Toileting Hygiene (QC): 4 Shower/Bathe Self (QC): 4 Upper Body Dressing (QC): 5 Lower Body Dressing (QC): 4 On/Off Footwear (QC): 4 1=Demonstrate adherence to instructed precautions during ADL tasks. 2=Patient will verbalize/demonstrate understanding of assistive devices/modifications for ADL. 3=Patient will improve strength/tolerance for activity to enable patient to perform ADL's. OT Education/Plan Problem List/Assessment Assessment: Decreased Activ Tolerance, Decreased UE Strength, Impaired Funct Balance, Impaired I ADL's, Impaired Self-Care Skills Discharge Recommendations Plan/Recommendations: Continue POC Treatment Plan/Plan of Care Treatment,Training & Education: Yes Patient would benefit from OT for education, treatment and training to promote independence in ADL's, mobility, safety and/or upper extremity function for ADL's. Plan of Care: ADL Retraining, Functional Mobility, Group Exercise/Act as Ind, U E Funct Exercise/Act, UE Neuromus Re-Ed/Coord, W/C Management Training Treatment Duration: May 04, 2021 Frequency: At least 5 of 7 days/Wk (IRF) Estimated Hrs Per Day: 1.5 hours per day Agreement: Yes Rehab Potential: Fair Time/GCodes Start Time: 07:50 Stop Time: 09:00 Total Time Billed (hr/min): 70 Billed Treatment Time 1 visit ADL x4 (60 min) FA (10 min) co-treat with PT for 60 min Latoya Becker OT Apr 16, 2021 09:08
[2021-04-16 09:22] VITALS: BP 104/59
[2021-04-16] MEDS: FERROUS SULF 325 MG (IRON) TAB PO SCH (10:39)
[2021-04-16] MEDS: MESALAMINE 250 MG (PENTASA) CAP PO SCH ×3 (10:39→21:22)
[2021-04-16] MEDS: VITAMIN D2 1.25 MG (50,000 UNITS) CAP PO SCH (10:39)
[2021-04-16] MEDS: OXYBUTYNIN (DITROPAN) 5 MG TAB PO SCH ×3 (10:39→21:22)
[2021-04-16] MEDS: CHOLESTYRAMINE 4 GM (QUESTRAN LITE, PREVALITE) PKT PO PRN (10:40)
[2021-04-16] MEDS: APIXABAN 5 MG (ELIQUIS) TABLET PO SCH ×2 (10:40→21:21)
[2021-04-16] MEDS: ATENOLOL 25 MG (TENORMIN) TAB PO SCH ×2 (10:40→21:21)
[2021-04-16] MEDS: fluCOnazole (DIFLUCAN) 100 MG TAB PO SCH (10:40)
[2021-04-16] MEDS: HYDROcodone/APAP 7.5 MG/325 MG (LORTAB, LORCET PLUS) TABLET PO SCH ×4 (10:40→21:24)
[2021-04-16] MEDS: SERTRALINE 50 MG (ZOLOFT) TABLET PO SCH (10:40)
[2021-04-16] MEDS ORDERED: BELLADONNA ALK/OPIUM (B & O) 30 MG SUPP PR PRN (10:45)
--- NOTE | 2021-04-16 10:49 | CONSULTATION REPORT ---
DATE OF SERVICE: 04/16/[address] Cardoso. SUMMARY: A 36-year-old white lady post-COVID with severe debility, history of UTI, sepsis and stage IV coccyx ulcer was complaining of gross hematuria and bladder spasms. She has been having a catheter for a while. She is on cefepime and Eliquis. The patient denies any previous gross hematuria or urinary problems or history of UTIs before. At this time, her urine is totally clear yellow, jenifer and no clots nothing. IMPRESSION: History of gross hematuria and bladder spasms, possible catheter cystitis. RECOMMENDATIONS: 1. UA, possible culture. 2. Continue cefepime. 3. Continue Eliquis unless have significant gross hematuria. 4. Keep the Fernandez catheter for now and manage accordingly. Job ID: [id number] DocumentID: [id number] Dictated Date: 04/16/2021 10:36:14 Freelance Photographer Date: 04/16/2021 10:48:50 Dictated By: LIEN HORNE MD
--- NOTE | 2021-04-16 11:07 | Occupational Ther Daily Note ---
OT Current Status-Daily Note Subjective Pt reports feeling much better, still having some episodes of spasms. Appearance Left sidelying in bed, all needs within reach. Mental Status/Objective Attachments: Drains, Fernandez Catheter, IV ADL-Treatment Therapy Code Descriptions/Definitions Functional [place] Measure: 0=Not Assessed/NA 4=Minimal Assistance 1=Total Assistance 5=Supervision or Setup 2=Maximal Assistance 6=Modified [place] 3=Moderate Assistance 7=Complete IndependenceSCALE: Activities may be completed with or without assistive devices. 1-Xohsvnqrwt-foubjbe completes the activity by him/herself with no assistance from a helper. 5-Set-up or Clean-up Assistance-helper sets up or cleans up; patient completes activity. [place] assists only prior to or following the activity. 4-Supervision or Touching Assistance-helper provides verbal cues and/or touching/steadying and/or contact guard assistance as patient completes activ ity. Assistance may be provided throughout the activity or intermittently. 3-Partial/Moderate Assistance-helper does LESS THAN HALF the effort. [place] lifts, holds or supports trunk or limbs, but provides less than half the effort. 2-Substantial/Maximal Assistance-helper does MORE THAN HALF the effort. [place] lifts or holds trunk or limbs and provides more than half the effort. 9-Gmhpsaknj-skncyn does ALL the effort. Patient does none of the effort to complete the activity. Or, the assistance of 2 or more helpers is required for the patient to complete the activity. If activity was not attempted, code reason: 7-Patient Refused. 9-Not Applicable-not attempted and the patient did not perform the activity before the current illness, exacerbation or injury. 10-Not Attempted due to Environmental Limitations-(lack of equipment, weather restraints, etc.). 88-Not Attempted due to Medical Conditions or Safety Concerns. Other Treatment Pt participated in UE exercises with goal to increase strength and endurance needed for adls and transfers. OT issued pt yellow theraband and instructed her on exercises. 10x2 in all planes. Resisted Shoulder flex only performed to 90 degrees secondary to weakness. 1 set performed with theraband, other performed with 2# dowel taina. Education OT Patient Education: Correct positioning, Exercise program, Progress toward Goal/Update tx plan Teaching Recipient: Patient Teaching Methods: Demonstration, Discussion Response to Teaching: Return Demonstration OT Short Term Goals Short Term Goals Time Frame: Apr 20, 2021 Eatin Oral hygiene: 5 Toileting hygiene: 2 Shower/bathe self: 2 Upper body dressin Lower body dressin Putting on/taking off footwear: 2 OT Detention Goals Cloth Dyer Goals Time Frame: May 04, 2021 Eating (QC): 6 Oral Hygiene (QC): 5 Toileting Hygiene (QC): 4 Shower/Bathe Self (QC): 4 Upper Body Dressing (QC): 5 Lower Body Dressing (QC): 4 On/Off Footwear (QC): 4 1=Demonstrate adherence to instructed precautions during ADL tasks. 2=Patient will verbalize/demonstrate understanding of assistive devices/modifications for ADL. 3=Patient will improve strength/tolerance for activity to enable patient to perform ADL's. OT Education/Plan Problem List/Assessment Assessment: Decreased Activ Tolerance, Decreased UE Strength, Impaired Funct Balance, Impaired I ADL's, Impaired Self-Care Skills Discharge Recommendations Plan/Recommendations: Continue POC Treatment Plan/Plan of Care Treatment,Training & Education: Yes Patient would benefit from OT for education, treatment and training to promote independence in ADL's, mobility, safety and/or upper extremity function for ADL's. Plan of Care: ADL Retraining, Functional Mobility, Group Exercise/Act as Ind, UE Funct Exercise/Act, UE Neuromus Re-Ed/Coord, W/C Management Training Treatment Duration: May 04, 2021 Frequency: At least 5 of 7 days/Wk (IRF) Estimated Hrs Per Day: 1.5 hours per day Agreement: Yes Rehab Potential: Fair Time/GCodes Start Time: 10:35 Stop Time: 11:00 Total Time Billed (hr/min): 25 Billed Treatment Time 1 visit EX x2 Latoya Becker OT Apr 16, 2021 11:07
--- NOTE | 2021-04-16 11:29 | Physical Therapy Daily Note ---
PT Daily Note-Current Subjective Pt. agrees to Rx. Shares that she notices all the progress she has made with regards to function. Pt. looking forward to a visit from her Dad this afternoon Pain Location: No Pain Reported Mental Status Patient Orientation: Normal For Age Attachments: Fernandez Catheter, Other-See Comments (wound vacc) Transfers SCALE: Activities may be completed with or without assistive devices. 0-Uqahrkelmb-kcbaetx completes the activity by him/herself with no assistance from a helper. 5-Set-up or Clean-up Assistance-helper sets up or cleans up; patient completes activity. [place] assists only prior to or following the activity. 4-Supervision or Touching Assistance-helper provides verbal cues and/or touching/steadying and/or contact guard assistance as patient completes activity. Assistance may be provided throughout the activity or intermittently. 3-Partial/Moderate Assistance-helper does LESS THAN HALF the effort. [place] lifts, holds or supports trunk or limbs, but provides less than half the effort. 2-Substantial/Maximal Assistance-helper does MORE THAN HALF the effort. [place] lifts or holds trunk or limbs and provides more than half the effort. 3-Aywibidxh-ukymve does ALL the effort. Patient does none of the effort to complete the activity. Or, the assistance of 2 or more helpers is required for the patient to complete the activity. If activity was not attempted, code reason: 7-Patient Refused. 9-Not Applicable-not attempted and the patient did not perform the activity before the current illness, exacerbation or injury. 10-Not Attempted due to Environmental Limitations-(lack of equipment, weather restraints, etc.). 88-Not Attempted due to Medical Conditions or Safety Concerns. Roll Left & Right (QC): 6 Weight Bearing Right Lower Extremity: Right Full Weight Bearing Left Lower Extremity: Left Full Weight Bearing Patient is cleared medically to bear weight through bilateral LEs, however due to prolonged illness and bed rest, patients LE's very weak and plantarflexion contractures bilaterally Exercises Supine Ex: Bridging, Ankle pumps ( syretch bilat 5 x 25 sec hold), Quad Set, Rolling, Glut sets, Heel Slides, Short Arc Quads, Scooting, Straight leg raise, Hip abd/add (side and sup) Supine Reps: 10 (x2) Treatments bed mob and ther ex Assessment Current Status: Good Progress gives full effort PT Short Term Goals Short Term Goals Time Frame: Apr 20, 2021 Roll Left & Right: 4 Sit to lyin Lying to sitting on side of be: 4 Sit to stand: 3 Chair/gep-nc-cvtvm transfer: 3 Toilet transfer: 3 Car transfer: 3 Walk 10 feet: 2 Walk 50 feet with two turns: 1 Walk 150 feet: 1 Does pt use a wc or scooter: Yes Wheel 50ft w/2 turns: 5 Wheel 150 feet: 5 Type: Manual PT Custodial Goals Custodial Goals PT Custodial Goals Time Frame: May 18, 2021 Roll Left & Right (QC): 6 Sit to Lying (QC): 6 Lying-Sitting on Side/Bed(QC): 6 Sit to Stand (QC): 4 Chair/Kih-ei-Vkrel Xfer(QC): 4 Toilet Transfer (QC): 4 Car Transfer (QC): 4 Does the Patient Walk: Yes Walk 10 feet (QC): 3 Walk 50ft with 2 Turns (QC): 3 Walk 150 ft (QC): 3 Walking 10ft on Uneven Surface: 3 1 Step (curb) (QC): 2 4 Steps (QC): 2 12 Steps (QC): 88 Picking up an Object (QC): 3 Does the Pt use WC or Scooter?: Yes Wheel 50 feet with 2 turns (QC: 6 Type: Manual Wheel 150 feet: 6 Type: Manual (6) PT Plan Treatment/Plan Treatment Plan: Continue Plan of Care Treatment Plan: Bed Mobility, Education, Functional Activity [place], Functional Strength, Group Therapy, Gait, Safety, Therapeutic Exercise, Transfers Treatment Duration: May 18, 2021 Frequency: At least 5 of 7 days/Wk (IRF) Estimated Hrs Per Day: 1.5 hours per day Patient and/or Family Agrees t: Yes Safety Risks/Education Patient Education: Transfer Techniques, Correct Positioning, Disease Process, Safety Issues Teaching Recipient: Patient Teaching Methods: Demonstration, Discussion Response to Teaching: Verbalize Understanding, Return Demonstration, Reinforcement Needed Time/GCodes Time In: 1100 Time Out: 1130 Total Billed Treatment Time: 30 Total Billed Treatment 1,EX30m KRISSY SHEPHERD EDUCATION INTERN Apr 16, 2021 11:29
[2021-04-16 17:40] LABS: BILIRUBIN,URINE NEGATIVE (NEGATIVE); CLARITY,URINE CLEAR; COLOR,URINE YELLOW; GLUCOSE, URINE (UA) NEGATIVE (NEGATIVE); KETONES,URINE NEGATIVE (NEGATIVE); LEUKOCYTE ESTERASE ,URINE NEGATIVE (NEGATIVE); NITRITE,URINE NEGATIVE (NEGATIVE); PROTEIN,URINE 1+ (NEGATIVE)
[2021-04-16 17:48] LABS: BACTERIA,URINE NEGATIVE /HPF; RBC,URINE 25-50 /HPF
[2021-04-16 17:49] LABS: CALCIUM OXALATE CRYSTALS,UR FEW /LPF
[2021-04-16 20:18] VITALS: BP 104/58
[2021-04-16] MEDS: MELATONIN 10 MG TABLET PO SCH (21:22)
[2021-04-16] MEDS: TOLTERODINE LA 4 MG (DETROL) CAP PO SCH (21:23)
[2021-04-17] MEDS: CATHETER FLUSH 10 ML SYR IV SCH ×3 (06:25→21:30)
[2021-04-17] MEDS: KCL 10 MEQ TAB (MICRO K) PO SCH (06:26)
[2021-04-17] MEDS: LACTOBACILLUS Acidoph/Bulgar 1 GM (LACTINEX) PACKET PO SCH ×4 (06:26→20:40)
[2021-04-17] MEDS: MULTIVIT W/MINERALS TAB (THERAGRAN M) PO SCH (06:26)
[2021-04-17] MEDS: VENlafaxine XR 75 MG (EFFEXOR XR) CAP PO SCH (06:26)
[2021-04-17] MEDS: CEFEPIME INJECTION 2,000 MG in NS (IVPB) 50 ML IV SCH ×3 (06:26→21:30)
--- NOTE | 2021-04-17 07:00 | PM&R Progress Note ---
Subjective HPI/CC On Admission Date Seen by Provider: Apr 17, 2021 Time Seen by Provider: 11:30 Subjective/Events-last exam 04/17/2021: Pt doing much better Foot drop will be worked on today Getting up and around today Checked meds and labs Nausea improved 04/16/2021: Pt having some nausea Wound vac came off yesterday, replacing that today IV Zofran given for nausea Garett will restart the wound vac Consulting urology for bladder spasms 04/15/2021: Patient doing very well Visitors today No pain is reported Wound VAC in place Fecal incontinence continues 04/14/2021: Patient doing very well today Stood with a walker today at bedside No pain is reported Wound VAC in place 04/13/21: Patient doing well Scop patch resolving the nausea Pain controlled Wound vac changed No issues 04/12/2021: Scopolamine patch working well Patient doing well Wound VAC maintained Check meds and labs No pain Eating and drinking well Scopolamine patch working well 04/11/2021: Patient doing well Fecal incontinence again last night Participating in therapy Wound VAC changed 04/10/2021: Patient doing well No major concerns PICC line dysfunction will be assessed Foot drop will be addressed with AFO Incontinent of bowel last night 04/09/2021: Patient doing really well Labs stable Hemoglobin 8.6 Wound VAC working well Getting ready to go the parallel bars with physical therapy 04/08/2021: Patient doing very well Was up 4 times yesterday out of bed Loose stools only has occurred once May need to use Questran as needed Check meds labs 04/07/2021: Patient doing very well We will get up in chair for lunch Hemoglobin 8.6 Bowels are moving now so on verge of constipation will change Questran to as needed no pain is reported Wound VAC tolerated well Review of Systems General: Fatigue Neurological: Weakness Objective Exam Vital Signs Vital Signs Date Time Temp Pulse Resp B/P (MAP) Pulse Ox O2 Delivery O2 Flow Rate FiO2 04/17/21 21:24 Room Air 04/17/21 20:49 36.8 92 18 120/61 (80) 99 Capillary Refill : General Appearance: No Apparent Distress, WD/WN, Chronically ill, Other (pale, chronically ill) HEENT: PERRL/EOMI, Normal ENT Inspection, Pharynx Normal Neck: Full Range of Motion, Normal Inspection, Non Tender, Supple, Carotid Bruit Respiratory: Chest Non Tender, Lungs Clear, Normal Breath Sounds, No Accessory Muscle Use, No Respiratory Distress Cardiovascular: Regular Rate, Rhythm, No Edema, No Gallop, No JVD, No Murmur, Normal Peripheral Pulses Gastrointestinal: Normal Bowel Sounds, No Organomegaly, No Pulsatile Mass, Non Tender, Soft Back: Normal Inspection, No CVA Tenderness, No Vertebral Tenderness Extremity: Normal Capillary Refill, Normal Inspection, Normal Range of Motion, Non Tender, No Calf Tenderness, No Pedal Edema Neurologic/Psychiatric: Alert, Oriented x3, No Motor/Sensory Deficits, customer service trainer II- XII Norm as Tested, Depressed Affect, Motor Weakness (3/5 upper 1/5 lower) Skin: Normal Color, Warm/Dry, Other (coccyx decubitus ulcer with wound vac) Lymphatic: No Adenopathy Results/Procedures Lab Patient resulted labs reviewed. FIM Transfers Therapy Code Descriptions/Definitions Functional [place] Measure: 0=Not Assessed/NA 4=Minimal Assistance 1=Total Assistance 5=Supervision or Setup 2=Maximal Assistance 6=Modified [place] 3=Moderate Assistance 7=Complete IndependenceSCALE: Activities may be completed with or without assistive devices. 9-Tdarmkqbsk-rngtxgp completes the activity by him/herself with no assistance from a helper. 5-Set-up or Clean-up Assistance-helper sets up or cleans up; patient completes activity. [place] assists only prior to or following the activity. 4-Supervision or Touching Assistance-helper provides verbal cues and/or touching/steadying and/or contact guard assistance as patient completes activity. Assistance may be provided throughout the activity or intermittently. 3-Partial/Moderate Assistance-helper does LESS THAN HALF the effort. [place] lifts, holds or supports trunk or limbs, but provides less than half the effort. 2-Substantial/Maximal Assistance-helper does MORE THAN HALF the effort. [place] lifts or holds trunk or limbs and provides more than half the effort. 3-Pjsblxhwq-jqfbng does ALL the effort. Patient does none of the effort to complete the activity. Or, the assistance of 2 or more helpers is required for the patient to complete the activity. If activity was not attempted, code reason: 7-Patient Refused. 9-Not Applicable-not attempted and the patient did not perform the activity before the current illness, exacerbation or injury. 10-Not Attempted due to Environmental Limitations-(lack of equipment, weather restraints, etc.). 88-Not Attempted due to Medical Conditions or Safety Concerns. Roll Left to Right (QC): 6 Sit to Lying (QC): 5 Sit to Stand (QC): 2 Chair/Srh-rk-Ynmmw Xfer(QC): 4 Car Transfer (QC): 1 Gait Training Does the Patient Walk?: No and Walking Goal IS indicated Walk 10 feet (QC): 88 Walk 50 ft with 2 Turns(QC): 88 Walk 150 ft (QC): 88 Walking 10ft/uneven surface-QC: 88 Wheelchair Training Does the Pt Use a Wheelchair?: Yes Distance: 150 Wheel 50 ft with 2 turns (QC): 4 Wheel 150 ft (QC): 3 Type of Wheelchair: Manual Stair Training #of Steps: 0 1 Step (curb) (QC): 88 4 Steps (QC): 88 12 Steps (QC): 88 Balance Picking up an Object (QC): 88 ADL-Treatment Eating (QC): 6 Oral Hygiene (QC): 5 Shower/Bathe Self (QC): 1 Upper Body Dressing (QC): 4 Lower Body Dressing (QC): 3 On/Off Footwear (QC): 1 Toileting Hygiene (QC): 1 Toilet Transfer (QC): 1 Assessment/Plan Assessment and Plan Assess & Plan/Chief Complaint Assessment: Post Covid with deconditioning s/p severe sepsis Diarrhea Sacral decubitus ulcer Hypokalemia Anemia previous transfusion Anxiety and Depression Fernandez catheter 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 Ongoing nausea improved Scopolamine patch Plan: IV abx Wound vac PT OT Depression meds OAC 04/07/2021: Wound VAC Out of bed 04/08/2021: Out of bed Wound VAC 04/09/2021: Supportive care Dramatic improvement already 04/10/2021: Supportive care Fernandez catheter required although it is an infection risk 04/11/2021: Supportive care Wound VAC appreciated 04/12/2021: Scopolamine patch Wound VAC 04/13/21: Scop patch Monitor pain 04/14/2021: Supportive care Wound VAC 04/14/2021: Wound VAC Fecal incontinence management 04/15/2021: Wound VAC management Continue depression treatment 04/16/2021: Supportive care Change wound VAC 04/17/2021: Appreciate wound care Cefepime (1) Post covid-19 condition, unspecified Status: Chronic (2) Sacral decubitus ulcer, stage IV Status: Chronic (3) Severe sepsis Status: Acute (4) UTI (urinary tract infection) TERRA EDWARDS DO Apr 17, 2021 06:59
[2021-04-17] MEDS: ATENOLOL 25 MG (TENORMIN) TAB PO SCH ×3 (09:00→20:44)
[2021-04-17] MEDS: COLLAGENASE 30 GM (SANTYL) TUBE TP SCH ×2 (09:00→19:25)
[2021-04-17] MEDS: MICONAZOLE 2% POWDER (DESENEX AF) 90 GM TOP SCH ×2 (09:00→19:25)
[2021-04-17] MEDS: NYSTATIN CREAM (MYCOSTATIN) 30 GM TUBE TP SCH ×3 (09:00→19:25)
[2021-04-17] MEDS: polyethylene glycoL POWDER 17 GM (MIRALAX) PACK PO SCH ×2 (09:00→19:25)
--- NOTE | 2021-04-17 09:07 | Physical Therapy Daily Note ---
PT Daily Note-Current Subjective Pt. agrees to Rx. Feels she is making progress, pain in wound at 4/10 Pain Numeric Pain Scale: 4 Location: Medial Location Body Site: Sacrum Pain Description: Pressure Mental Status Patient Orientation: Normal For Age Attachments: Fernandez Catheter, Other-See Comments (wv) Transfers SCALE: Activities may be completed with or without assistive devices. 9-Uheizdnypu-bldqafi completes the activity by him/herself with no assistance from a helper. 5-Set-up or Clean-up Assistance-helper sets up or cleans up; patient completes activity. [place] assists only prior to or following the activity. 4-Supervision or Touching Assistance-helper provides verbal cues and/or touching/steadying and/or contact guard assistance as patient completes activ ity. Assistance may be provided throughout the activity or intermittently. 3-Partial/Moderate Assistance-helper does LESS THAN HALF the effort. [place] lifts, holds or supports trunk or limbs, but provides less than half the effort. 2-Substantial/Maximal Assistance-helper does MORE THAN HALF the effort. [place] lifts or holds trunk or limbs and provides more than half the effort. 3-Vqdsxxzrv-panvwr does ALL the effort. Patient does none of the effort to complete the activity. Or, the assistance of 2 or more helpers is required for the patient to complete the activity. If activity was not attempted, code reason: 7-Patient Refused. 9-Not Applicable-not attempted and the patient did not perform the activity before the current illness, exacerbation or injury. 10-Not Attempted due to Environmental Limitations-(lack of equipment, weather restraints, etc.). 88-Not Attempted due to Medical Conditions or Safety Concerns. Roll Left & Right (QC): 6 Sit to Lying (QC): 6 Lying to Sitting/Side of Bed(Q: 6 Sit to Stand (QC): 3 Chair/Dzh-mm-Scbaj Xfer(QC): 3 slide brd, co Rx OT PT for coordination of UEs and trunk etc. sit to stand x 4 in // bars with min assist of 2 posterior and anterior and assist to control left LE positionoing Weight Bearing Right Lower Extremity: Right Full Weight Bearing Left Lower Extremity: Left Full Weight Bearing Patient is cleared medically to bear weight through bilateral LEs, however due to prolonged illness and bed rest, patients LE's very weak and plantarflexion contractures bilaterally Gait Training Gait Assistive Device: Parallel Bars sit to stands and attempt at steps x 2 steps with assist for LLE foot ankle which has significant foot drop but looks improved today, wt shift left to right . pre gait activity Exercises left heel cord stretches in seated position with education/instruction to pt. regarding positioning to self stretch in sitting Treatments PT OT co Rx due to poor activity tolerance and weakness during funct activities , requiring 2 skilled clinicians to coordinate U&L extr and trunk etc for safety and efficiency etc Assessment Current Status: Good Progress pt. gives full effort and shows good progress daily, pt. does fatigue in stance PT Short Term Goals Short Term Goals Time Frame: Apr 20, 2021 Roll Left & Right: 4 Sit to lyin Lying to sitting on side of be: 4 Sit to stand: 3 Chair/eqk-zw-oogiy transfer: 3 Toilet transfer: 3 Car transfer: 3 Walk 10 feet: 2 Walk 50 feet with two turns: 1 Walk 150 feet: 1 Does pt use a wc or scooter: Yes Wheel 50ft w/2 turns: 5 Wheel 150 feet: 5 Type: Manual PT Contract Law Specialist Goals Penit[facility]iary Goals PT Penitentiary Goals Time Frame: May 18, 2021 Roll Left & Right (QC): 6 Sit to Lying (QC): 6 Lying-Sitting on Side/Bed(QC): 6 Sit to Stand (QC): 4 Chair/Vob-wf-Qabbs Xfer(QC): 4 Toilet Transfer (QC): 4 Car Transfer (QC): 4 Does the Patient Walk: Yes Walk 10 feet (QC): 3 Walk 50ft with 2 Turns (QC): 3 Walk 150 ft (QC): 3 Walking 10ft on Uneven Surface: 3 1 Step (curb) (QC): 2 4 Steps (QC): 2 12 Steps (QC): 88 Picking up an Object (QC): 3 Does the Pt use WC or Scooter?: Yes Wheel 50 feet with 2 turns (QC: 6 Type: Manual Wheel 150 feet: 6 Type: Manual (6) PT Plan Treatment/Plan Treatment Plan: Continue Plan of Care Treatment Plan: Bed Mobility, Education, Functional Activity John Paul, Functional Strength, Group Therapy, Gait, Safety, Therapeutic Exercise, Transfers Treatment Duration: May 18, 2021 Frequency: At least 5 of 7 days/Wk (IRF) Estimated Hrs Per Day: 1.5 hours per day Patient and/or Family Agrees t: Yes Safety Risks/Education Patient Education: Gait Training, Transfer Techniques, Reviewed Use of Ice, Disease Process, Safety Issues Teaching Recipient: Patient Teaching Methods: Demonstration, Discussion Response to Teaching: Verbalize Understanding, Return Demonstration, Reinforcement Needed Time/GCodes Time In: 800 Time Out: 900 Total Billed Treatment Time: 60 Total Billed Treatment 1,wc 10m,FA50m KRISSY SHEPHERD TAKER OFF Apr 17, 2021 09:07
[2021-04-17] MEDS: ONDANSETRON 4 MG (ZOFRAN) ORAL DISSOLVE TAB PO PRN ×2 (09:14→18:18)
[2021-04-17] MEDS: fluCOnazole (DIFLUCAN) 100 MG TAB PO SCH (09:15)
[2021-04-17] MEDS: OXYBUTYNIN (DITROPAN) 5 MG TAB PO SCH ×3 (09:15→20:41)
[2021-04-17] MEDS: FERROUS SULF 325 MG (IRON) TAB PO SCH (09:15)
[2021-04-17] MEDS: SERTRALINE 50 MG (ZOLOFT) TABLET PO SCH (09:15)
[2021-04-17] MEDS: APIXABAN 5 MG (ELIQUIS) TABLET PO SCH ×2 (09:15→20:41)
[2021-04-17] MEDS: CHOLESTYRAMINE 4 GM (QUESTRAN LITE, PREVALITE) PKT PO PRN (09:15)
[2021-04-17] MEDS: MESALAMINE 250 MG (PENTASA) CAP PO SCH ×3 (09:15→20:40)
[2021-04-17] MEDS: HYDROcodone/APAP 7.5 MG/325 MG (LORTAB, LORCET PLUS) TABLET PO SCH ×4 (09:15→20:52)
[2021-04-17 09:17] VITALS: BP 94/55
--- NOTE | 2021-04-17 09:18 | Occupational Ther Daily Note ---
OT Current Status-Daily Note Subjective Pt reports pain in buttocks this date, 08/26. Co-treat with PT needed for part of session ([id number]) due to weakness, decreased activity tolerance, high fall risk, as well as need for addressing multiple areas with 2 different professionals. Appearance Pt returned to supine in bed, all needs within reach. Mental Status/Objective Patient Orientation: Person, Place, Time, Situation Attachments: Drains, Fernandez Catheter, IV ADL-Treatment Therapy Code Descriptions/Definitions Functional [place] Measure: 0=Not Assessed/NA 4=Minimal Assistance 1=Total Assistance 5=Supervision or Setup 2=Maximal Assistance 6=Modified [place] 3=Moderate Assistance 7=Complete IndependenceSCALE: Activities may be completed with or without assistive devices. 6-Motavcckcv-mcfyevo completes the activity by him/herself with no assistance from a helper. 5-Set-up or Clean-up Assistance-helper sets up or cleans up; patient completes activity. [place] assists only prior to or following the activity. 4-Supervision or Touching Assistance-helper provides verbal cues and/or touching/steadying and/or contact guard assistance as patient completes activit y. Assistance may be provided throughout the activity or intermittently. 3-Partial/Moderate Assistance-helper does LESS THAN HALF the effort. [place] lifts, holds or supports trunk or limbs, but provides less than half the effort. 2-Substantial/Maximal Assistance-helper does MORE THAN HALF the effort. [place] lifts or holds trunk or limbs and provides more than half the effort. 1-Dqhcyhphs-kgaocl does ALL the effort. Patient does none of the effort to complete the activity. Or, the assistance of 2 or more helpers is required for the patient to complete the activity. If activity was not attempted, code reason: 7-Patient Refused. 9-Not Applicable-not attempted and the patient did not perform the activity before the current illness, exacerbation or injury. 10-Not Attempted due to Environmental Limitations-(lack of equipment, weather restraints, etc.). 88-Not Attempted due to Medical Conditions or Safety Concerns. Oral Hygiene (QC): 6 Upper Body Dressing (QC): 5 Lower Body Dressing (QC): 3 (min) On/Off Footwear: 3 (min) Pt sleeping at OT arrival, extra time to waken but agreeable to treatment. Able to sit EOB with supervision. Clothes donned sitting EOB. Min a to thread RLE due to fatigue and inability to lift high enough off floor as well as min verbal/tactile cues on preferred bushler use. Pt returns to supine with min a to lift legs secondary to fatigue. No assist required to bridge and pull brief/pants over hips. Min reminders on use of sock aid and assist to lift LLE (due to contracture) as she slides foot into equipment. Grooming tasks performed at w/c level sitting at the sink, no assist or cues required. Other Treatment Slide board transfer bed<>w/c: CGA-min A. Verbal and visual cues on set up pre transfer. OT/PT educating pt on w/c parts and pt was able to demonstrate correct use back to therapists. While in parallel bars, pt completed multiple sit<>stands with emphasis on increasing LE strength, endurance, standing tolerance, and balance. Min a to shift weight side to side and front/back as pre-gait activity. Pt fatigues very quickly and often will initiate stand>sit. Tactile cues/assist on bringing hips forward for more upright posture. PT focusing on stretching/positioning of bilateral feet secondary to contracture. Pt also completed w/c pushups x5 but unable to get buttocks fully off chair. She was able to propel w/c back to room with several short rest breaks due to fatigue. Min a to doff all clothing once back in bed. Education OT Patient Education: Correct positioning, Disease process, Energy conservation, Modified ADL techniques, Progress toward Goal/Update tx plan, Purpose of tx/functional activities, Rehab process, Transfer techniques, Use of adapted equipment, W/C management Teaching Recipient: Patient Teaching Methods: Demonstration, Discussion Response to Teaching: Verbalize Understanding, Return Demonstration OT Short Term Goals Short Term Goals Time Frame: Apr 20, 2021 Eatin Oral hygiene: 5 Toileting hygiene: 2 Shower/bathe self: 2 Upper body dressin Lower body dressin Putting on/taking off footwear: 2 OT Edge Worker Goals Edge Worker Goals Time Frame: May 04, 2021 Eating (QC): 6 Oral Hygiene (QC): 5 Toileting Hygiene (QC): 4 Shower/Bathe Self (QC): 4 Upper Body Dressing (QC): 5 Lower Body Dressing (QC): 4 On/Off Footwear (QC): 4 1=Demonstrate adherence to instructed precautions during ADL tasks. 2=Patient will verbalize/demonstrate understanding of assistive devices/modifications for ADL. 3=Patient will improve strength/tolerance for activity to enable patient to perform ADL's. OT Education/Plan Problem List/Assessment Assessment: Decreased Activ Tolerance, Decreased UE Strength, Dependent Transfers, Impaired Funct Balance, Impaired I ADL's, Impaired Self-Care Skills Discharge Recommendations Plan/Recommendations: Continue POC Treatment Plan/Plan of Care Treatment,Training & Education: Yes Patient would benefit from OT for education, treatment and training to promote independence in ADL's, mobility, safety and/or upper extremity function for ADL's. Plan of Care: ADL Retraining, Functional Mobility, Group Exercise/Act as Ind, UE Funct Exercise/Act, UE Neuromus Re-Ed/Coord, W/C Management Training Treatment Duration: May 04, 2021 Frequency: At least 5 of 7 days/Wk (IRF) Estimated Hrs Per Day: 1.5 hours per day Agreement: Yes Rehab Potential: Fair Time/GCodes Start Time: 07:42 Stop Time: 09:12 Total Time Billed (hr/min): 90 Billed Treatment Time 1 visit ADL x3 (45 min) FA x3 (45 min) co treat with PT for 60 min Latoya Becker OT Apr 17, 2021 09:18
--- NOTE | 2021-04-17 12:02 | Physical Therapy Daily Note ---
PT Daily Note-Current Subjective Pt. asleep but awakens to greeting. Pt. states she just had pain pill not long ago. Agrees to Rx. Pain Numeric Pain Scale: 4 Location: Medial Location Body Site: Sacrum Pain Description: Pressure Mental Status Patient Orientation: Normal For Age Attachments: Other-See Comments ([place]) Transfers SCALE: Activities may be completed with or without assistive devices. 8-Zvtqtoixgd-qbpandl completes the activity by him/herself with no assistance from a helper. 5-Set-up or Clean-up Assistance-helper sets up or cleans up; patient completes activity. [place] assists only prior to or following the activity. 4-Supervision or Touching Assistance-helper provides verbal cues and/or touching/steadying and/or contact guard assistance as patient completes activity. Assistance may be provided throughout the activity or intermittently. 3-Partial/Moderate Assistance-helper does LESS THAN HALF the effort. [place] lifts, holds or supports trunk or limbs, but provides less than half the effort. 2-Substantial/Maximal Assistance-helper does MORE THAN HALF the effort. [place] lifts or holds trunk or limbs and provides more than half the effort. 7-Dxhwnutzp-grlwni does ALL the effort. Patient does none of the effort to complete the activity. Or, the assistance of 2 or more helpers is required for the patient to complete the activity. If activity was not attempted, code reason: 7-Patient Refused. 9-Not Applicable-not attempted and the patient did not perform the activity before the current illness, exacerbation or injury. 10-Not Attempted due to Environmental Limitations-(lack of equipment, weather restraints, etc.). 88-Not Attempted due to Medical Conditions or Safety Concerns. rolls left and right and pushes self up in bed indep Weight Bearing Right Lower Extremity: Right Full Weight Bearing Left Lower Extremity: Left Full Weight Bearing Patient is cleared medically to bear weight through bilateral LEs, however due to prolonged illness and bed rest, patients LE's very weak and plantarflexion contractures bilaterally Exercises Supine Ex: Bridging, Ankle pumps, Pelvic tilt, Quad Set, Rolling, Glut sets, Lower trunk rotation, Heel Slides, Short Arc Quads, Scooting, Straight leg raise, Hip abd/add Supine Reps: 20 Treatments bilateral HC stretches 5 x 20 sec each .initiated /applied bilateral multi podus boots to address foot drop/ possible contractures. Left boot difficult to apply as it is in significant PF. pt. having had pain pill 30 mins ago now hoping she may be able to tolerate supine for awhile to get good positioning from multi podus boots for stretching HC Assessment Current Status: Good Progress sacral/ back wound pain limits true supine position, pt. usually in about a 1/4 side lying half supine position PT Short Term Goals Short Term Goals Time Frame: Apr 20, 2021 Roll Left & Right: 4 Sit to lyin Lying to sitting on side of be: 4 Sit to stand: 3 Chair/goe-ha-ivnyx transfer: 3 Toilet transfer: 3 Car transfer: 3 Walk 10 feet: 2 Walk 50 feet with two turns: 1 Walk 150 feet: 1 Does pt use a wc or scooter: Yes Wheel 50ft w/2 turns: 5 Wheel 150 feet: 5 Type: Manual PT Assisted Goals Tim[place] Faller Goals PT [place]er Goals Time Frame: May 18, 2021 Roll Left & Right (QC): 6 Sit to Lying (QC): 6 Lying-Sitting on Side/Bed(QC): 6 Sit to Stand (QC): 4 Chair/Ojq-tv-Zcibd Xfer(QC): 4 Toilet Transfer (QC): 4 Car Transfer (QC): 4 Does the Patient Walk: Yes Walk 10 feet (QC): 3 Walk 50ft with 2 Turns (QC): 3 Walk 150 ft (QC): 3 Walking 10ft on Uneven Surface: 3 1 Step (curb) (QC): 2 4 Steps (QC): 2 12 Steps (QC): 88 Picking up an Object (QC): 3 Does the Pt use WC or Scooter?: Yes Wheel 50 feet with 2 turns (QC: 6 Type: Manual Wheel 150 feet: 6 Type: Manual (6) PT Plan Treatment/Plan Treatment Plan: Continue Plan of Care Treatment Plan: Bed Mobility, Education, Functional Activity [place], Functional Strength, Group Therapy, Gait, Safety, Therapeutic Exercise, Transfers Treatment Duration: May 18, 2021 Frequency: At least 5 of 7 days/Wk (IRF) Estimated Hrs Per Day: 1.5 hours per day Patient and/or Family Agrees t: Yes Safety Risks/Education Patient Education: Correct Positioning, Disease Process, Safety Issues Teaching Recipient: Patient Teaching Methods: Demonstration, Discussion Response to Teaching: Verbalize Understanding, Return Demonstration, Reinfor cement Needed Time/GCodes Time In: 1130 Time Out: 1200 Total Billed Treatment Time: 30 Total Billed Treatment 1,FA10m,EX20m KRISSY SHEPHERD OXYGEN SYSTEM TESTER Apr 17, 2021 12:02
[2021-04-17] MEDS: SCOPOLAMINE PATCH REMOVAL TP SCH (12:57)
[2021-04-17] MEDS: SCOPOLAMINE 1.5 MG (TRANSDERM-SCOP) PATCH TD SCH (12:57)
[2021-04-17] MEDS: ONDANSETRON 4 MG/2 ML (SDV) Z0FRAN IVP PRN (12:58)
[2021-04-17] MEDS: TOLTERODINE LA 4 MG (DETROL) CAP PO SCH (20:40)
[2021-04-17] MEDS: MELATONIN 10 MG TABLET PO SCH (20:41)
[2021-04-17 20:49] VITALS: BP 120/61
[2021-04-18] MEDS: ONDANSETRON 4 MG/2 ML (SDV) Z0FRAN IVP PRN (06:08)
[2021-04-18] MEDS: CEFEPIME INJECTION 2,000 MG in NS (IVPB) 50 ML IV SCH ×3 (06:09→21:22)
[2021-04-18] MEDS: MULTIVIT W/MINERALS TAB (THERAGRAN M) PO SCH (06:09)
[2021-04-18] MEDS: KCL 10 MEQ TAB (MICRO K) PO SCH (06:09)
[2021-04-18] MEDS: LACTOBACILLUS Acidoph/Bulgar 1 GM (LACTINEX) PACKET PO SCH ×4 (06:09→21:18)
[2021-04-18] MEDS: VENlafaxine XR 75 MG (EFFEXOR XR) CAP PO SCH (06:09)
[2021-04-18] MEDS: CATHETER FLUSH 10 ML SYR IV SCH ×3 (06:10→21:22)
[2021-04-18 08:00] VITALS: BP 104/53
[2021-04-18] MEDS: polyethylene glycoL POWDER 17 GM (MIRALAX) PACK PO SCH ×2 (08:28→19:15)
[2021-04-18] MEDS: COLLAGENASE 30 GM (SANTYL) TUBE TP SCH ×2 (08:54→19:16)
[2021-04-18] MEDS: NYSTATIN CREAM (MYCOSTATIN) 30 GM TUBE TP SCH ×3 (08:55→19:15)
[2021-04-18] MEDS: MICONAZOLE 2% POWDER (DESENEX AF) 90 GM TOP SCH ×2 (08:55→19:15)
--- NOTE | 2021-04-18 08:59 | Physical Therapy Daily Note ---
PT Daily Note-Current Subjective Pt. in bed, ate very little of her breakfast. Agrees to Rx. Agrees to PT OT co Rx for TRF training and shower and dressing . Pt. briefly reports some dizziness Pain Location: No Pain Reported Mental Status Patient Orientation: Normal For Age Attachments: Fernandez Catheter, Other-See Comments (wound vacc) Transfers SCALE: Activities may be completed with or without assistive devices. 6-Iuzrvsvtio-sddvcgu completes the activity by him/herself with no assistance from a helper. 5-Set-up or Clean-up Assistance-helper sets up or cleans up; patient completes activity. [place] assists only prior to or following the activity. 4-Supervision or Touching Assistance-helper provides verbal cues and/or touching/steadying and/or contact guard assistance as patient completes activity. Assistance may be provided throughout the activity or intermittently. 3-Partial/Moderate Assistance-helper does LESS THAN HALF the effort. [place] lifts, holds or supports trunk or limbs, but provides less than half the effort. 2-Substantial/Maximal Assistance-helper does MORE THAN HALF the effort. [place] lifts or holds trunk or limbs and provides more than half the effort. 8-Xxrzvlpnu-yizlup does ALL the effort. Patient does none of the effort to complete the activity. Or, the assistance of 2 or more helpers is required for the patient to complete the activity. If activity was not attempted, code reason: 7-Patient Refused. 9-Not Applicable-not attempted and the patient did not perform the activity before the current illness, exacerbation or injury. 10-Not Attempted due to Environmental Limitations-(lack of equipment, weather restraints, etc.). 88-Not Attempted due to Medical Conditions or Safety Concerns. Roll Left & Right (QC): 6 Sit to Lying (QC): 6 Lying to Sitting/Side of Bed(Q: 6 Chair/Fpa-wg-Nppfw Xfer(QC): 4 pt used sld brd bed to shower chair , and shower chair to bed today. During shower chair to bed pt.bore significant amount of weight on feet to manage to TRF. board was placed for pt. secondary to positioning but pt. shows more indep on regular basis for TRF. in bed pt. demonstrates indep in pushing herself up in the bed and positioning herself. Weight Bearing Right Lower Extremity: Right Full Weight Bearing Left Lower Extremity: Left Full Weight Bearing Patient is cleared medically to bear weight through bilateral LEs, however due to prolonged illness and bed rest, patients LE's very weak and plantarflexion contractures bilaterally Exercises Supine Ex: Ankle pumps, Rolling, Scooting, Hip abd/add (hooklying hip ext rotation) Supine Reps: 8 Seated Therapy Exercises: Long arc quads (very limited strength and ROM for knee ext in sitting) Seated Reps: 8 HC stretches x 3 x 20 sec Treatments pt. had loose large BM in bed which required max assist 1-2 to clean before Rx, pt. rolling and positioning near indep to assist therapists Assessment Current Status: Good Progress PT Short Term Goals Short Term Goals Time Frame: Apr 20, 2021 Roll Left & Right: 4 Sit to lyin Lying to sitting on side of be: 4 Sit to stand: 3 Chair/gju-yi-iwvqs transfer: 3 Toilet transfer: 3 Car transfer: 3 Walk 10 feet: 2 Walk 50 feet with two turns: 1 Walk 150 feet: 1 Does pt use a wc or scooter: Yes Wheel 50ft w/2 turns: 5 Wheel 150 feet: 5 Type: Manual PT Audit Control Clerk Goals Long-Term Goals PT Long-Term Goals Time Frame: May 18, 2021 Roll Left & Right (QC): 6 Sit to Lying (QC): 6 Lying-Sitting on Side/Bed(QC): 6 Sit to Stand (QC): 4 Chair/Yfc-si-Nerft Xfer(QC): 4 Toilet Transfer (QC): 4 Car Transfer (QC): 4 Does the Patient Walk: Yes Walk 10 feet (QC): 3 Walk 50ft with 2 Turns (QC): 3 Walk 150 ft (QC): 3 Walking 10ft on Uneven Surface: 3 1 Step (curb) (QC): 2 4 Steps (QC): 2 12 Steps (QC): 88 Picking up an Object (QC): 3 Does the Pt use WC or Scooter?: Yes Wheel 50 feet with 2 turns (QC: 6 Type: Manual Wheel 150 feet: 6 Type: Manual (6) PT Plan Treatment/Plan Treatment Plan: Continue Plan of Care Treatment Plan: Bed Mobility, Education, Functional Activity John Paul, Functional Strength, Group Therapy, Gait, Safety, Therapeutic Exercise, Transfers Treatment Duration: May 18, 2021 Frequency: At least 5 of 7 days/Wk (IRF) Estimated Hrs Per Day: 1.5 hours per day Patient and/or Family Agrees t: Yes Safety Risks/Education Patient Education: Transfer Techniques, Correct Positioning, Disease Process, Safety Issues Teaching Recipient: Patient Teaching Methods: Demonstration, Discussion Response to Teaching: Verbalize Understanding, Return Demonstration, Reinforcement Needed Time/GCodes Time In: 800 Time Out: 900 Total Billed Treatment Time: 60 Total Billed Treatment 1,EX12m,FA48m KRISSY SHEPHERD PRESSURE DISPATCHER Apr 18, 2021 08:59
--- NOTE | 2021-04-18 09:17 | Occupational Ther Daily Note ---
OT Current Status-Daily Note Subjective Pt excited to shower. Co-treat with PT needed for part of session ([id number]) due to weakness, decreased activity tolerance, high fall risk, as well as need for addressing multiple areas with 2 different professionals. Appearance Left sidelying in bed, all needs within reach, wound doctor in room. Mental Status/Objective Patient Orientation: Person, Place, Time, Situation Attachments: Drains, Fernandez Catheter, IV ADL-Treatment Therapy Code Descriptions/Definitions Functional [place] Measure: 0=Not Assessed/NA 4=Minimal Assistance 1=Total Assistance 5=Supervision or Setup 2=Maximal Assistance 6=Modified [place] 3=Moderate Assistance 7=Complete IndependenceSCALE: Activities may be completed with or without assistive devices. 7-Utbqfrzvpf-icowitw completes the activity by him/herself with no assistance from a helper. 5-Set-up or Clean-up Assistance-helper sets up or cleans up; patient completes activity. [place] assists only prior to or following the activity. 4-Supervision or Touching Assistance-helper provides verbal cues and/or touching/steadying and/or contact guard assistance as patient completes activity. Assistance may be provided throughout the activity or intermittently. 3-Partial/Moderate Assistance-helper does LESS THAN HALF the effort. [place] lifts, holds or supports trunk or limbs, but provides less than half the effort. 2-Substantial/Maximal Assistance-helper does MORE THAN HALF the effort. [place] lifts or holds trunk or limbs and provides more than half the effort. 5-Tmnrpntbl-xfawae does ALL the effort. Patient does none of the effort to complete the activity. Or, the assistance of 2 or more helpers is required for the patient to complete the activity. If activity was not attempted, code reason: 7-Patient Refused. 9-Not Applicable-not attempted and the patient did not perform the activity before the current illness, exacerbation or injury. 10-Not Attempted due to Environmental Limitations-(lack of equipment, weather restraints, etc.). 88-Not Attempted due to Medical Conditions or Safety Concerns. Shower/Bathe Self (QC): 3 Upper Body Dressing (QC): 4 Lower Body Dressing (QC): 2 Toileting Hygiene (QC): 1 Pt sleeping at OT arrival. Shortly after sitting EOB, pt reports urgency to have BM. She immediately lays back on bed to complete BM. Loose stool running out of side of brief and onto bed. Required max a x2 for tsering care and to change linens. Slide board transfer bed<>shower w/c with CGA-min A. Pt continues to show improved indep with task, needing only assist for initial positioning of board and min cues for technique. Shower performed; 100% in sitting. OT instructed pt on performing lateral pelvic leans in order to wash buttocks. Mod- max a still needed for thoroughness. OT issued and instructed pt on use of LHS in order to reach feet. Post instruction, she was able to complete without assist. Post shower, she reports dizziness, fatigue, and requests to return to bed. Due to time restraints, Socks and brief donned onto feet by therapist. Pt able to roll R/L and bridge at hips to pull clothing up to waist without assist. New gown donned with set up. Education OT Patient Education: Correct positioning, Energy conservation, Modified ADL techniques, Progress toward Goal/Update tx plan, Purpose of tx/functional activities, Rehab process, Transfer techniques, Use of adapted equipment, W/C management Teaching Recipient: Patient Teaching Methods: Demonstration, Discussion Response to Teaching: Verbalize Understanding, Return Demonstration, Reinforcement Needed OT Short Term Goals Short Term Goals Time Frame: Apr 20, 2021 Eatin Oral hygiene: 5 Toileting hygiene: 2 Shower/bathe self: 2 Upper body dressin Lower body dressin Putting on/taking off footwear: 2 OT Information Security Engineer Goals Information Security Engineer Goals Time Frame: May 04, 2021 Eating (QC): 6 Oral Hygiene (QC): 5 Toileting Hygiene (QC): 4 Shower/Bathe Self (QC): 4 Upper Body Dressing (QC): 5 Lower Body Dressing (QC): 4 On/Off Footwear (QC): 4 1=Demonstrate adherence to instructed precautions during ADL tasks. 2=Patient will verbalize/demonstrate understanding of assistive devices/modifications for ADL. 3=Patient will improve strength/tolerance for activity to enable patient to perform ADL's. OT Education/Plan Problem List/Assessment Assessment: Decreased Activ Tolerance, Decreased UE Strength, Impaired Funct Balance, Impaired I ADL's, Impaired Self-Care Skills Discharge Recommendations Plan/Recommendations: Continue POC Treatment Plan/Plan of Care Treatment,Training & Education: Yes Patient would benefit from OT for education, treatment and training to promote independence in ADL's, mobility, safety and/or upper extremity function for ADL's. Plan of Care: ADL Retraining, Functional Mobility, Group Exercise/Act as Ind, UE Funct Exercise/Act, UE Neuromus Re-Ed/Coord, W/C Management Training Treatment Duration: May 04, 2021 Frequency: At least 5 of 7 days/Wk (IRF) Estimated Hrs Per Day: 1.5 hours per day Agreement: Yes Rehab Potential: Fair Time/GCodes Start Time: 07:40 Stop Time: 09:10 Total Time Billed (hr/min): 90 Billed Treatment Time 1 visit ADL x5 (75 min) FA (15 min) co treat with PT for 60 min Latoya Becker OT Apr 18, 2021 09:17
--- NOTE | 2021-04-18 09:34 | Progress Note - Urology ---
Progress Note-Urology Progress Notes/Assess & Plan Progress/Assessment & Plan LEAVE CARRASCO UNTIL NOT NEEDED MEDICALLY Final Diagnosis RETENTION LIEN HORNE MD Apr 18, 2021 09:33
[2021-04-18] MEDS: ATENOLOL 25 MG (TENORMIN) TAB PO SCH ×2 (09:59→21:26)
[2021-04-18] MEDS: SERTRALINE 50 MG (ZOLOFT) TABLET PO SCH (09:59)
[2021-04-18] MEDS: HYDROcodone/APAP 7.5 MG/325 MG (LORTAB, LORCET PLUS) TABLET PO SCH ×4 (09:59→21:18)
[2021-04-18] MEDS: APIXABAN 5 MG (ELIQUIS) TABLET PO SCH ×2 (09:59→21:17)
[2021-04-18] MEDS: OXYBUTYNIN (DITROPAN) 5 MG TAB PO SCH ×3 (09:59→21:17)
[2021-04-18] MEDS: MESALAMINE 250 MG (PENTASA) CAP PO SCH ×3 (09:59→21:18)
[2021-04-18] MEDS: LOPERAMIDE 2 MG (IMODIUM) TABLET PO PRN (09:59)
[2021-04-18] MEDS: CHOLESTYRAMINE 4 GM (QUESTRAN LITE, PREVALITE) PKT PO PRN (09:59)
[2021-04-18] MEDS: FERROUS SULF 325 MG (IRON) TAB PO SCH (09:59)
--- NOTE | 2021-04-18 11:49 | PM&R Progress Note ---
Subjective HPI/CC On Admission Date Seen by Provider: Apr 18, 2021 Time Seen by Provider: 11:45 Subjective/Events-last exam 04/18/2021: Pt doing well Catheter will be kept until decubitus ulcer heals BNO suppositories will be ordered for bladder spasms IV iron infusions completed Left foot drop is improving 04/17/2021: Pt doing much better Foot drop will be worked on today Getting up and around today Checked meds and labs Nausea improved 04/16/2021: Pt having some nausea Wound vac came off yesterday, replacing that today IV Zofran given for nausea Garett will restart the wound vac Consulting urology for bladder spasms 04/15/2021: Patient doing very well Visitors today No pain is reported Wound VAC in place Fecal incontinence continues 04/14/2021: Patient doing very well today Stood with a walker today at bedside No pain is reported Wound VAC in place 04/13/21: Patient doing well Scop patch resolving the nausea Pain controlled Wound vac changed No issues 04/12/2021: Scopolamine patch working well Patient doing well Wound VAC maintained Check meds and labs No pain Eating and drinking well Scopolamine patch working well 04/11/2021: Patient doing well Fecal incontinence again last night Participating in therapy Wound VAC changed 04/10/2021: Patient doing well No major concerns PICC line dysfunction will be assessed Foot drop will be addressed with AFO Incontinent of bowel last night 04/09/2021: Patient doing really well Labs stable Hemoglobin 8.6 Wound VAC working well Getting ready to go the parallel bars with physical therapy 04/08/2021: Patient doing very well Was up 4 times yesterday out of bed Loose stools only has occurred once May need to use Questran as needed Check meds labs 04/07/2021: Patient doing very well We will get up in chair for lunch Hemoglobin 8.6 Bowels are moving now so on verge of constipation will change Questran to as needed no pain is reported Wound VAC tolerated well Review of Systems General: Fatigue, Malaise Objective Exam Vital Signs Vital Signs Date Time Temp Pulse Resp B/P (MAP) Pulse Ox O2 Delivery O2 Flow Rate FiO2 04/18/21 20:30 Room Air 04/18/21 20:30 36.8 87 20 100/54 (69) 100 Capillary Refill : General Appearance: No Apparent Distress, WD/WN, Chronically ill, Other (pale, chronically ill) HEENT: PERRL/EOMI, Normal ENT Inspection, Pharynx Normal Neck: Full Range of Motion, Normal Inspection, Non Tender, Supple, Carotid Bruit Respiratory: Chest Non Tender, Lungs Clear, Normal Breath Sounds, No Accessory Muscle Use, No Respiratory Distress Cardiovascular: Regular Rate, Rhythm, No Edema, No Gallop, No JVD, No Murmur, Normal Peripheral Pulses Gastrointestinal: Normal Bowel Sounds, No Organomegaly, No Pulsatile Mass, Non Tender, Soft Back: Normal Inspection, No CVA Tenderness, No Vertebral Tenderness Extremity: Normal Capillary Refill, Normal Inspection, Normal Range of Motion, Non Tender, No Calf Tenderness, No Pedal Edema Neurologic/Psychiatric: Alert, Oriented x3, No Motor/Sensory Deficits, biometrics technician II- XII Norm as Tested, Depressed Affect, Motor Weakness (3/5 upper 1/5 lower) Skin: Normal Color, Warm/Dry, Other (coccyx decubitus ulcer with wound vac) Lymphatic: No Adenopathy Results/Procedures Lab Patient resulted labs reviewed. FIM Transfers Therapy Code Descriptions/Definitions Functional [place] Measure: 0=Not Assessed/NA 4=Minimal Assistance 1=Total Assistance 5=Supervision or Setup 2=Maximal Assistance 6=Modified [place] 3=Moderate Assistance 7=Complete IndependenceSCALE: Activities may be completed with or without assistive devices. 7-Yuhlfadoim-zbtduuf completes the activity by him/herself with no assistance from a helper. 5-Set-up or Clean-up Assistance-helper sets up or cleans up; patient completes activity. [place] assists only prior to or following the activity. 4-Supervision or Touching Assistance-helper provides verbal cues and/or touching/steadying and/or contact guard assistance as patient completes activity. Assistance may be provided throughout the activity or intermittently. 3-Partial/Moderate Assistance-helper does LESS THAN HALF the effort. [place] lifts, holds or supports trunk or limbs, but provides less than half the effort. 2-Substantial/Maximal Assistance-helper does MORE THAN HALF the effort. [place] lifts or holds trunk or limbs and provides more than half the effort. 9-Ufipuzkbj-zftkzz does ALL the effort. Patient does none of the effort to complete the activity. Or, the assistance of 2 or more helpers is required for the patient to complete the activity. If activity was not attempted, code reason: 7-Patient Refused. 9-Not Applicable-not attempted and the patient did not perform the activity before the current illness, exacerbation or injury. 10-Not Attempted due to Environmental Limitations-(lack of equipment, weather restraints, etc.). 88-Not Attempted due to Medical Conditions or Safety Concerns. Roll Left to Right (QC): 6 Sit to Lying (QC): 6 Sit to Stand (QC): 3 Chair/Uum-xm-Minqt Xfer(QC): 4 Car Transfer (QC): 1 Gait Training Does the Patient Walk?: No and Walking Goal IS indicated Walk 10 feet (QC): 88 Walk 50 ft with 2 Turns(QC): 88 Walk 150 ft (QC): 88 Walking 10ft/uneven surface-QC: 88 Gait Assistive Device: Parallel Bars Wheelchair Training Does the Pt Use a Wheelchair?: Yes Distance: 150 Wheel 50 ft with 2 turns (QC): 4 Wheel 150 ft (QC): 3 Type of Wheelchair: Manual Stair Training #of Steps: 0 1 Step (curb) (QC): 88 4 Steps (QC): 88 12 Steps (QC): 88 Balance Picking up an Object (QC): 88 ADL-Treatment Eating (QC): 6 Oral Hygiene (QC): 6 Shower/Bathe Self (QC): 3 Upper Body Dressing (QC): 4 Lower Body Dressing (QC): 2 On/Off Footwear (QC): 3 (min) Toileting Hygiene (QC): 1 Toilet Transfer (QC): 1 Assessment/Plan Assessment and Plan Assess & Plan/Chief Complaint Assessment: Post Covid with deconditioning s/p severe sepsis Diarrhea Sacral decubitus ulcer Hypokalemia Anemia previous transfusion Anxiety and Depression Fernandez catheter 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 Ongoing nausea improved Scopolamine patch Plan: IV abx Wound vac PT OT Depression meds OAC 04/07/2021: Wound VAC Out of bed 04/08/2021: Out of bed Wound VAC 04/09/2021: Supportive care Dramatic improvement already 04/10/2021: Supportive care Fernandez catheter required although it is an infection risk 04/11/2021: Supportive care Wound VAC appreciated 04/12/2021: Scopolamine patch Wound VAC 11/26/21: Scop patch Monitor pain 04/14/2021: Supportive care Wound VAC 04/14/2021: Wound VAC Fecal incontinence management 04/15/2021: Wound VAC management Continue depression treatment 04/16/2021: Supportive care Change wound VAC 04/17/2021: Appreciate wound care Cefepime 04/18/2021: Continue aggressive PT Wound VAC (1) Post covid-19 condition, unspecified Status: Chronic (2) Sacral decubitus ulcer, stage IV Status: Chronic (3) Severe sepsis Status: Acute (4) UTI (urinary tract infection) TERRA EDWARDS DO Apr 18, 2021 11:49
--- NOTE | 2021-04-18 13:16 | Physical Therapy Daily Note ---
PT Daily Note-Current Subjective Pt. agrees to Rx. States she has had BM and needs cleaned up. Pain Location: No Pain Reported Mental Status Patient Orientation: Normal For Age Attachments: Other-See Comments ([place] ans multi podus boots) Transfers SCALE: Activities may be completed with or without assistive devices. 2-Xmsxfqvitj-fwkbyos completes the activity by him/herself with no assistance from a helper. 5-Set-up or Clean-up Assistance-helper sets up or cleans up; patient completes activity. [place] assists only prior to or following the activity. 4-Supervision or Touching Assistance-helper provides verbal cues and/or touching/steadying and/or contact guard assistance as patient completes activity. Assistance may be provided throughout the activity or intermittently. 3-Partial/Moderate Assistance-helper does LESS THAN HALF the effort. [place] lifts, holds or supports trunk or limbs, but provides less than half the effort. 2-Substantial/Maximal Assistance-helper does MORE THAN HALF the effort. [place] lifts or holds trunk or limbs and provides more than half the effort. 4-Xvcrhuaof-iiqosu does ALL the effort. Patient does none of the effort to complete the activity. Or, the assistance of 2 or more helpers is required for the patient to complete the activity. If activity was not attempted, code reason: 7-Patient Refused. 9-Not Applicable-not attempted and the patient did not perform the activity before the current illness, exacerbation or injury. 10-Not Attempted due to Environmental Limitations-(lack of equipment, weather restraints, etc.). 88-Not Attempted due to Medical Conditions or Safety Concerns. rolling left to right and pushing self up in bed indep Weight Bearing Right Lower Extremity: Right Full Weight Bearing Left Lower Extremity: Left Full Weight Bearing Patient is cleared medically to bear weight through bilateral LEs, however due to prolonged illness and bed rest, patients LE's very weak and plantarflexion contractures bilaterally Exercises Supine Ex: Bridging, Ankle pumps, Quad Set, Rolling, Heel Slides, Hip abd/add Supine Reps: 15 Treatments rolling left to right for doffing brief as well as clean up of lg BM, clean linens etc. pt. assists with rolling and repositioning, Bilat lE exerc as well as HC stretches, still very tight L>R, multipodus boots donned after stretching with positioning in good position Assessment Current Status: Good Progress PT Short Term Goals Short Term Goals Time Frame: Apr 20, 2021 Roll Left & Right: 4 Sit to lyin Lying to sitting on side of be: 4 Sit to stand: 3 Chair/gqs-ay-muzfg transfer: 3 Toilet transfer: 3 Car transfer: 3 Walk 10 feet: 2 Walk 50 feet with two turns: 1 Walk 150 feet: 1 Does pt use a wc or scooter: Yes Wheel 50ft w/2 turns: 5 Wheel 150 feet: 5 Type: Manual PT Detention Goals Detention Goals PT Casualty Underwriter Goals Time Frame: May 18, 2021 Roll Left & Right (QC): 6 Sit to Lying (QC): 6 Lying-Sitting on Side/Bed(QC): 6 Sit to Stand (QC): 4 Chair/Hcq-hu-Iekgq Xfer(QC): 4 Toilet Transfer (QC): 4 Car Transfer (QC): 4 Does the Patient Walk: Yes Walk 10 feet (QC): 3 Walk 50ft with 2 Turns (QC): 3 Walk 150 ft (QC): 3 Walking 10ft on Uneven Surface: 3 1 Step (curb) (QC): 2 4 Steps (QC): 2 12 Steps (QC): 88 Picking up an Object (QC): 3 Does the Pt use WC or Scooter?: Yes Wheel 50 feet with 2 turns (QC: 6 Type: Manual Wheel 150 feet: 6 Type: Manual (6) PT Plan Treatment/Plan Treatment Plan: Continue Plan of Care Treatment Plan: Bed Mobility, Education, Functional Activity [place], Functional Strength, Group Therapy, Gait, Safety, Therapeutic Exercise, Transfers Treatment Duration: May 18, 2021 Frequency: At least 5 of 7 days/Wk (IRF) Estimated Hrs Per Day: 1.5 hours per day Patient and/or Family Agrees t: Yes Time/GCodes Time In: 1245 Time Out: 1315 Total Billed Treatment Time: 30 Total Billed Treatment 1,FA15m,EX15m KRISSY SHEPHERD PTA Apr 18, 2021 13:16
--- NOTE | 2021-04-18 16:39 | Wound Care Assessment ---
Wound Care Assessment Date Seen by Provider: Apr 18, 2021 Time Seen by Provider: 09:30 Chief Complaint Stage 4 pressure ulcer sacrum with acute osteomyelitis STEVEN Diehl is a pleasant young lady who had a severe case of COVID-19 resulting in subsequent stage 4 pressure ulceration with acute osteomyelitis. She presented to my office prior to hospital admission from a local nursing facility. In my office she was hypotensive, febrile and with N/V. She was referred to the emergency room for admission. She was admitted to the ICU with severe sepsis and required broad spectrum antibiotics, pressure support and aggressive rehydration. Bone culture and biopsy obtained along with wound culture. These confirmed Pseudomonas infection (also in urine) and acute osteomyelitis. She is greatly improved from admission and is now admitted to rehab for strengthening and continued wound care and IV antibiotics. On initial exam she did have a piece of bone that flaked off which was obtained for biopsy/culture. The underlying bone did not appear necrotic to myself. Surgery also did not deem necessary for ariel debridement. Her wound dramatically improved with veraflow wound vac and she is now on a traditional wound vac. Bone is no longer exposed on today's exam. Wound bed appears pink and with good granulation. She remains on targeted antibiotic therapy and is gaining strength daily. She does continue to have Fernandez cath at this time. Past Medical History: Admits Diabetes Type II, Admits Heart Disease Smoking Status: Never a Smoker Alcohol Use: Denies Use Review of Systems General: Fatigue Exam Vital Signs Date Time Temp Pulse Resp B/P (MAP) Pulse Ox O2 Delivery O2 Flow Rate FiO2 04/18/21 09:06 Room Air 04/18/21 08:00 37.1 92 16 104/53 (70) 96 Capillary Refill : General Appearance: WD/WN, no apparent distress, obese Respiratory: no respiratory distress, no accessory muscle use Extremities: normal range of motion Neurologic/Psychiatric: alert, normal mood/affect, oriented x 3 Skin: normal color, warm/dry Skin Problem Location: torso Wound assessment: 2.2x2.0x2.0cm. The epithelialization is small, drainage is large and serosanguinous. Margins are flat, granulation is large and pink, necrotic is small and slough. Wound no longer probes to bone. Assessment/Plan/Dx Assessment: 1. Post COVID 19 stage 4 sacral pressure ulcer 2. Acute pseudomonal osteomyelitis 3. DM2 4. PEM 5. Generalized weakness Plan: 1. Targeted antibiotic therapy for 8 weeks. Defer changes to primary's capable hands if needed in future. 2. Appropriate off loading per turning and bedding 3. Continue wound vac. 4. Glycemic control for speed of wound healing. Defer diabetic changes to primary 5. High protein diet/supplements as indicated. 6. Increased strengthening per rehab personnel. 7. Liseth covered with hydrocolloid dressing to be changed twice weekly with wound vac changes to inferior portion of wound (moisture injury). ANKIT BERNABE MD Apr 18, 2021 16:39
[2021-04-18 20:30] VITALS: BP 100/54
[2021-04-18] MEDS: TOLTERODINE LA 4 MG (DETROL) CAP PO SCH (21:17)
[2021-04-18] MEDS: MELATONIN 10 MG TABLET PO SCH (21:18)
[2021-04-19] MEDS: CEFEPIME INJECTION 2,000 MG in NS (IVPB) 50 ML IV SCH ×3 (06:22→21:34)
[2021-04-19] MEDS: KCL 10 MEQ TAB (MICRO K) PO SCH (06:22)
[2021-04-19] MEDS: ONDANSETRON 4 MG/2 ML (SDV) Z0FRAN IVP PRN (06:22)
[2021-04-19] MEDS: VENlafaxine XR 75 MG (EFFEXOR XR) CAP PO SCH (06:22)
[2021-04-19] MEDS: MULTIVIT W/MINERALS TAB (THERAGRAN M) PO SCH (06:22)
[2021-04-19] MEDS: CATHETER FLUSH 10 ML SYR IV SCH ×3 (06:23→21:34)
[2021-04-19] MEDS: LACTOBACILLUS Acidoph/Bulgar 1 GM (LACTINEX) PACKET PO SCH ×3 (06:23→17:10)
[2021-04-19 07:41] VITALS: BP 119/53
--- NOTE | 2021-04-19 08:59 | Physical Therapy Daily Note ---
PT Daily Note-Current Subjective Patient in bed pre tx, agrees to PT, voices no complaints of pain. Will be co- treating with OT due to poor patient mobility, strength, endurance, severe debility, coordinate UE and LE during activity, safety and reduce risk of falls. Appearance Patient in bed post tx with nurse call, phone, tray, all needs met. Mental Status Patient Orientation: Normal For Age Attachments: Fernandez Catheter wound vac Transfers SCALE: Activities may be completed with or without assistive devices. 1-Wouljrutcg-jbmivto completes the activity by him/herself with no assistance from a helper. 5-Set-up or Clean-up Assistance-helper sets up or cleans up; patient completes activity. [place] assists only prior to or following the activity. 4-Supervision or Touching Assistance-helper provides verbal cues and/or touching/steadying and/or contact guard assistance as patient completes activity. Assistance may be provided throughout the activity or intermittently. 3-Partial/Moderate Assistance-helper does LESS THAN HALF the effort. [place] lifts, holds or supports trunk or limbs, but provides less than half the effort. 2-Substantial/Maximal Assistance-helper does MORE THAN HALF the effort. [place] lifts or holds trunk or limbs and provides more than half the effort. 9-Aupepcwmq-rvtgay does ALL the effort. Patient does none of the effort to complete the activity. Or, the assistance of 2 or more helpers is required for the patient to complete the activity. If activity was not attempted, code reason: 7-Patient Refused. 9-Not Applicable-not attempted and the patient did not perform the activity before the current illness, exacerbation or injury. 10-Not Attempted due to Environmental Limitations-(lack of equipment, weather restraints, etc.). 88-Not Attempted due to Medical Conditions or Safety Concerns. Roll Left & Right (QC): 6 Sit to Lying (QC): 3 Lying to Sitting/Side of Bed(Q: 4 Sit to Stand (QC): 3 Chair/Qme-yi-Ueuja Xfer(QC): 3 Patient needs dressed and then slide board to WC (min assist), after getting back to her room she performed a stand pivot transfer with mod assist and then layed down with min assist. Weight Bearing Right Lower Extremity: Right Full Weight Bearing Left Lower Extremity: Left Full Weight Bearing Patient is cleared medically to bear weight through bilateral LEs, however due to prolonged illness and bed rest, patients LE's very weak and plantarflexion contractures bilaterally Gait Training Distance: 3'x5 Gait Persons Needed: 1 Gait Assistive Device: Parallel Bars Patient used a heel wedge in her left shoe due to her plantarflexion contracture, she has ankle instability so therapist has to secure this while she is up, she can take a few tiny steps, needs cues for positioning. Exercises Standing: Heel/toe raises, Mini squats, Sit to Stand Standing Reps: 5 (in parallel bars) Treatments PT performed positioning and safety during dressing, bed mobility and transfers, ambulation, LE exercise, OT performed dressing, UE positioning and safety during activity Assessment Current Status: Fair Progress Patient needs a custom fit AFO with a heel wedge and hinged ankle, social work job titles notified PT Short Term Goals Short Term Goals Time Frame: Apr 20, 2021 Roll Left & Right: 4 Sit to lyin Lying to sitting on side of be: 4 Sit to stand: 3 Chair/vcd-iy-gutrj transfer: 3 Toilet transfer: 3 Car transfer: 3 Walk 10 feet: 2 Walk 50 feet with two turns: 1 Walk 150 feet: 1 Does pt use a wc or scooter: Yes Wheel 50ft w/2 turns: 5 Wheel 150 feet: 5 Type: Manual PT Fios Line Installer Goals Detention Goals PT Fios Line Installer Goals Time Frame: May 18, 2021 Roll Left & Right (QC): 6 Sit to Lying (QC): 6 Lying-Sitting on Side/Bed(QC): 6 Sit to Stand (QC): 4 Chair/Nke-td-Qdptu Xfer(QC): 4 Toilet Transfer (QC): 4 Car Transfer (QC): 4 Does the Patient Walk: Yes Walk 10 feet (QC): 3 Walk 50ft with 2 Turns (QC): 3 Walk 150 ft (QC): 3 Walking 10ft on Uneven Surface: 3 1 Step (curb) (QC): 2 4 Steps (QC): 2 12 Steps (QC): 88 Picking up an Object (QC): 3 Does the Pt use WC or Scooter?: Yes Wheel 50 feet with 2 turns (QC: 6 Type: Manual Wheel 150 feet: 6 Type: Manual (6) PT Plan Problem List Problem List: Activity Tolerance, Functional Strength, Safety, Balance, Gait, Transfer, Bed Mobility, ROM Treatment/Plan Treatment Plan: Continue Plan of Care Treatment Plan: Bed Mobility, Education, Functional Activity [place], Functional Strength, Group Therapy, Gait, Safety, Therapeutic Exercise, Transfers Treatment Duration: May 18, 2021 Frequency: At least 5 of 7 days/Wk (IRF) Estimated Hrs Per Day: 1.5 hours per day Patient and/or Family Agrees t: Yes Safety Risks/Education Patient Education: Gait Training, Transfer Techniques, Correct Positioning, Safety Issues Teaching Recipient: Patient Teaching Methods: Demonstration, Discussion Response to Teaching: Reinforcement Needed Time/GCodes Time In: 0800 Time Out: 0900 Total Billed Treatment Time: 60 Total Billed Treatment 1 visit FA 60' co-treated with OT for 60' MAURO MOORE PT Apr 19, 2021 08:59
[2021-04-19] MEDS: MICONAZOLE 2% POWDER (DESENEX AF) 90 GM TOP SCH ×2 (09:00→19:17)
[2021-04-19] MEDS: NYSTATIN CREAM (MYCOSTATIN) 30 GM TUBE TP SCH ×3 (09:00→19:17)
[2021-04-19] MEDS: polyethylene glycoL POWDER 17 GM (MIRALAX) PACK PO SCH ×2 (09:00→19:14)
[2021-04-19] MEDS: COLLAGENASE 30 GM (SANTYL) TUBE TP SCH ×2 (09:00→19:17)
--- NOTE | 2021-04-19 09:03 | Occupational Ther Daily Note ---
OT Current Status-Daily Note Subjective Pt reports pain as 6/10 in buttocks. RN notified. Agreeable to co-treat as pt requires 2 skilled clinicians due to weakness, decreased activity tolerance, high fall risk, as well as need for addressing multiple areas with 2 different professionals. Appearance Pt returned to supine, all needs within reach. Mental Status/Objective Attachments: Drains, Fernandez Catheter, IV, Other-See Comments wound vac ADL-Treatment Therapy Code Descriptions/Definitions Functional [place] Measure: 0=Not Assessed/NA 4=Minimal Assistance 1=Total Assistance 5=Supervision or Setup 2=Maximal Assistance 6=Modified [place] 3=Moderate Assistance 7=Complete IndependenceSCALE: Activities may be completed with or without assistive devices. 0-Zokmpfysfl-czgqczg completes the activity by him/herself with no assistance from a helper. 5-Set-up or Clean-up Assistance-helper sets up or cleans up; patient completes activity. [place] assists only prior to or following the activity. 4-Supervision or Touching Assistance-helper provides verbal cues and/or touching/steadying and/or contact guard assistance as patient completes activity. Assistance may be provided throughout the activity or intermittently. 3-Partial/Moderate Assistance-helper does LESS THAN HALF the effort. [place] lifts, holds or supports trunk or limbs, but provides less than half the effort. 2-Substantial/Maximal Assistance-helper does MORE THAN HALF the effort. [place] lifts or holds trunk or limbs and provides more than half the effort. 7-Wmvvmbmqc-hhgtef does ALL the effort. Patient does none of the effort to complete the activity. Or, the assistance of 2 or more helpers is required for the patient to complete the activity. If activity was not attempted, code reason: 7-Patient Refused. 9-Not Applicable-not attempted and the patient did not perform the activity before the current illness, exacerbation or injury. 10-Not Attempted due to Environmental Limitations-(lack of equipment, weather restraints, etc.). 88-Not Attempted due to Medical Conditions or Safety Concerns. Upper Body Dressing (QC): 5 Lower Body Dressing (QC): 3 On/Off Footwear: 2 Pt resting at therapy arrival. Clothing donned seated EOB. When donning LB clothing, Extra time and min a to thread LLE with use of psychiatric technician due to contracture/foot drop and inability to lift foot (toes) high enough off floor. Pt returns to supine (min a to lift legs back into bed) to perform clothing management. Extra time but no assist required. Pt does require several short rest breaks throughout adls due to fatigue and poor activity tolerance. Shoes donned with max a (wedge placed on L heel to compensate for plantarflexion contracture). Other Treatment Slide board transfer bed>w/c with SBA-CGA. Pt with improved ability to place/remove slide board and only required min verbal cues for technique. Once in gym, she completed multiple sit<>stands in parallel bars, mod a for lifting. Once standing cues needed for anterior weight shift and upright posture. Pt able to take 4-5 small steps this date with mod A. Ankle instability notable with physical therapist assisting with stabilizing during gait. Pt has tendency to sit quickly when fatigued and requires w/c behind her at all times. Pt unable to tolerate standing for >1 minute. Education OT Patient Education: Correct positioning, Energy conservation, Modified ADL techniques, Progress toward Goal/Update tx plan, Purpose of tx/functional activities, Rehab process, Safety issues, Transfer techniques, W/C management Teaching Recipient: Patient Teaching Methods: Demonstration, Discussion Response to Teaching: Verbalize Understanding, Return Demonstration OT Short Term Goals Short Term Goals Time Frame: Apr 20, 2021 Eatin Oral hygiene: 5 Toileting hygiene: 2 Shower/bathe self: 2 Upper body dressin Lower body dressin Putting on/taking off footwear: 2 OT Shelter Goals Joiner Apprentice Goals Time Frame: May 04, 2021 Eating (QC): 6 Oral Hygiene (QC): 5 Toileting Hygiene (QC): 4 Shower/Bathe Self (QC): 4 Upper Body Dressing (QC): 5 Lower Body Dressing (QC): 4 On/Off Footwear (QC): 4 1=Demonstrate adherence to instructed precautions during ADL tasks. 2=Patient will verbalize/demonstrate understanding of assistive devices/modifications for ADL. 3=Patient will improve strength/tolerance for activity to enable patient to perform ADL's. OT Education/Plan Problem List/Assessment Assessment: Decreased Activ Tolerance, Decreased UE Strength, Impaired Coordination, Impaired Funct Balance, Impaired I ADL's, Impaired Self-Care Skills Discharge Recommendations Plan/Recommendations: Continue POC Treatment Plan/Plan of Care Treatment,Training & Education: Yes Patient would benefit from OT for education, treatment and training to promote independence in ADL's, mobility, safety and/or upper extremity function for ADL's. Plan of Care: ADL Retraining, Functional Mobility, Group Exercise/Act as Ind, UE Funct Exercise/Act, UE Neuromus Re-Ed/Coord, W/C Management Training Treatment Duration: May 04, 2021 Frequency: At least 5 of 7 days/Wk (IRF) Estimated Hrs Per Day: 1.5 hours per day Agreement: Yes Rehab Potential: Fair Time/GCodes Start Time: 08:00 Stop Time: 09:00 Total Time Billed (hr/min): 60 Billed Treatment Time 1 visit ADL x2 (30 min) FA x2 (30 min) Latoya Becker OT Apr 19, 2021 09:03
[2021-04-19] MEDS: OXYBUTYNIN (DITROPAN) 5 MG TAB PO SCH ×3 (09:37→21:31)
[2021-04-19] MEDS: ATENOLOL 25 MG (TENORMIN) TAB PO SCH ×2 (09:37→21:31)
[2021-04-19] MEDS: FERROUS SULF 325 MG (IRON) TAB PO SCH (09:37)
[2021-04-19] MEDS: APIXABAN 5 MG (ELIQUIS) TABLET PO SCH ×2 (09:37→21:31)
[2021-04-19] MEDS: HYDROcodone/APAP 7.5 MG/325 MG (LORTAB, LORCET PLUS) TABLET PO SCH ×4 (09:37→21:31)
[2021-04-19] MEDS: SERTRALINE 50 MG (ZOLOFT) TABLET PO SCH (09:37)
[2021-04-19] MEDS: MESALAMINE 250 MG (PENTASA) CAP PO SCH ×3 (09:37→21:31)
--- NOTE | 2021-04-19 11:00 | Physical Therapy Daily Note ---
PT Daily Note-Current Subjective Patient in bed pre tx, agrees to PT, states she has a little pain in her wound area. Appearance Patient in bed post tx with nurse call, phone, tray, all needs met. Mental Status Patient Orientation: Normal For Age Attachments: Fernandez Catheter wound vac Transfers SCALE: Activities may be completed with or without assistive devices. 5-Hzcrboiztx-ecyzxjn completes the activity by him/herself with no assistance from a helper. 5-Set-up or Clean-up Assistance-helper sets up or cleans up; patient completes activity. [place] assists only prior to or following the activity. 4-Supervision or Touching Assistance-helper provides verbal cues and/or touching/steadying and/or contact guard assistance as patient completes activity. Assistance may be provided throughout the activity or intermittently. 3-Partial/Moderate Assistance-helper does LESS THAN HALF the effort. [place] lifts, holds or supports trunk or limbs, but provides less than half the effort. 2-Substantial/Maximal Assistance-helper does MORE THAN HALF the effort. [place] lifts or holds trunk or limbs and provides more than half the effort. 3-Iqgnwalcb-tpoexx does ALL the effort. Patient does none of the effort to complete the activity. Or, the assistance of 2 or more helpers is required for the patient to complete the activity. If activity was not attempted, code reason: 7-Patient Refused. 9-Not Applicable-not attempted and the patient did not perform the activity before the current illness, exacerbation or injury. 10-Not Attempted due to Environmental Limitations-(lack of equipment, weather restraints, etc.). 88-Not Attempted due to Medical Conditions or Safety Concerns. Weight Bearing Right Lower Extremity: Right Full Weight Bearing Left Lower Extremity: Left Full Weight Bearing Patient is cleared medically to bear weight through bilateral LEs, however due to prolonged illness and bed rest, patients LE's very weak and plantarflexion contractures bilaterally Exercises Supine Ex: Ankle pumps (can't do this much on the left side), Quad Set, Glut sets, Heel Slides, Short Arc Quads, Straight leg raise (AAROM on the left side), Hip abd/add Supine Reps: 20 bilateral manual hamstring and gastroc stretching Treatments LE strengthening and stretching Assessment Current Status: Poor Progress very slow progress, her left ankle contracture is going to make progress difficult PT Short Term Goals Short Term Goals Time Frame: Apr 20, 2021 Roll Left & Right: 4 Sit to lyin Lying to sitting on side of be: 4 Sit to stand: 3 Chair/rvi-sg-xyjft transfer: 3 Toilet transfer: 3 Car transfer: 3 Walk 10 feet: 2 Walk 50 feet with two turns: 1 Walk 150 feet: 1 Does pt use a wc or scooter: Yes Wheel 50ft w/2 turns: 5 Wheel 150 feet: 5 Type: Manual PT Retirement Goals Retirement Goals PT Retirement Goals Time Frame: May 18, 2021 Roll Left & Right (QC): 6 Sit to Lying (QC): 6 Lying-Sitting on Side/Bed(QC): 6 Sit to Stand (QC): 4 Chair/Rga-td-Cdimn Xfer(QC): 4 Toilet Transfer (QC): 4 Car Transfer (QC): 4 Does the Patient Walk: Yes Walk 10 feet (QC): 3 Walk 50ft with 2 Turns (QC): 3 Walk 150 ft (QC): 3 Walking 10ft on Uneven Surface: 3 1 Step (curb) (QC): 2 4 Steps (QC): 2 12 Steps (QC): 88 Picking up an Object (QC): 3 Does the Pt use WC or Scooter?: Yes Wheel 50 feet with 2 turns (QC: 6 Type: Manual Wheel 150 feet: 6 Type: Manual (6) PT Plan Problem List Problem List: Activity Tolerance, Functional Strength, Safety, Balance, Gait, Transfer, Bed Mobility, ROM Treatment/Plan Treatment Plan: Continue Plan of Care Treatment Plan: Bed Mobility, Education, Functional Activity [place], Functional Strength, Group Therapy, Gait, Safety, Therapeutic Exercise, Transfers Treatment Duration: May 18, 2021 Frequency: At least 5 of 7 days/Wk (IRF) Estimated Hrs Per Day: 1.5 hours per day Patient and/or Family Agrees t: Yes Safety Risks/Education Patient Education: Correct Positioning, Safety Issues Teaching Recipient: Patient Teaching Methods: Demonstration, Discussion Response to Teaching: Reinforcement Needed Time/GCodes Time In: 1030 Time Out: 1100 Total Billed Treatment Time: 30 Total Billed Treatment 1 visit EX 30' MAURO MOORE PT Apr 19, 2021 11:00
--- NOTE | 2021-04-19 11:40 | Occupational Ther Daily Note ---
OT Current Status-Daily Note Subjective Denies pain, agreeable to treatment Appearance left sidelying in bed, all needs within reach. Mental Status/Objective Attachments: Drains, Fernandez Catheter, IV ADL-Treatment Therapy Code Descriptions/Definitions Functional [place] Measure: 0=Not Assessed/NA 4=Minimal Assistance 1=Total Assistance 5=Supervision or Setup 2=Maximal Assistance 6=Modified [place] 3=Moderate Assistance 7=Complete IndependenceSCALE: Activities may be completed with or without assistive devices. 6-Mylmlsuicx-vomphzk completes the activity by him/herself with no assistance from a helper. 5-Set-up or Clean-up Assistance-helper sets up or cleans up; patient completes activity. [place] assists only prior to or following the activity. 4-Supervision or Touching Assistance-helper provides verbal cues and/or touching/steadying and/or contact guard assistance as patient completes activity. Assistance may be provided throughout the activity or intermittently. 3-Partial/Moderate Assistance-helper does LESS THAN HALF the effort. [place] lift s, holds or supports trunk or limbs, but provides less than half the effort. 2-Substantial/Maximal Assistance-helper does MORE THAN HALF the effort. [place] lifts or holds trunk or limbs and provides more than half the effort. 9-Alsodcays-cgckmu does ALL the effort. Patient does none of the effort to complete the activity. Or, the assistance of 2 or more helpers is required for the patient to complete the activity. If activity was not attempted, code reason: 7-Patient Refused. 9-Not Applicable-not attempted and the patient did not perform the activity before the current illness, exacerbation or injury. 10-Not Attempted due to Environmental Limitations-(lack of equipment, weather restraints, etc.). 88-Not Attempted due to Medical Conditions or Safety Concerns. Other Treatment Pt participated in UE exercises with goal to improve endurance and strength needed for adls and transfers. Attempt at 3# dumbbell, yet pt unable to tolerate. Weight reduced to 2#. Heavy emphasis on triceps strengthening for sit>stand transfers as well as slide board transfers. Pt fatigues quickly and will take short (5-10 sec) break after ~ 5-6 reps before finishing remaining in set (shoulders only). 10-12x1 in all planes. Min verbal and tactile cues for correct form. OT also issued pt yellow theraputty and educated her on home exercise program with emphasis on promoting increased wrist/game design instructor strength; L wrist extensors worse than R. Pt able to verbalize and demonstrate 4 step sequence back to therapist. Education OT Patient Education: Correct positioning, Energy conservation, Progress toward Goal/Update tx plan Teaching Recipient: Patient Teaching Methods: Demonstration, Discussion Response to Teaching: Verbalize Understanding, Return Demonstration OT Short Term Goals Short Term Goals Time Frame: Apr 20, 2021 Eatin Oral hygiene: 5 Toileting hygiene: 2 Shower/bathe self: 2 Upper body dressin Lower body dressin Putting on/taking off footwear: 2 OT Snf Goals Snf Goals Time Frame: May 04, 2021 Eating (QC): 6 Oral Hygiene (QC): 5 Toileting Hygiene (QC): 4 Shower/Bathe Self (QC): 4 Upper Body Dressing (QC): 5 Lower Body Dressing (QC): 4 On/Off Footwear (QC): 4 1=Demonstrate adherence to instructed precautions during ADL tasks. 2=Patient will verbalize/demonstrate understanding of assistive devices/modifications for ADL. 3=Patient will improve strength/tolerance for activity to enable patient to perform ADL's. OT Education/Plan Problem List/Assessment Assessment: Decreased Activ Tolerance, Decreased UE Strength, Impaired Coordination, Impaired Funct Balance, Impaired I ADL's, Impaired Self-Care Skills, Restricted Funct UE ROM Discharge Recommendations Plan/Recommendations: Continue POC Treatment Plan/Plan of Care Treatment,Training & Education: Yes Patient would benefit from OT for education, treatment and training to promote independence in ADL's, mobility, safety and/or upper extremity function for ADL 's. Plan of Care: ADL Retraining, Functional Mobility, Group Exercise/Act as Ind, UE Funct Exercise/Act, UE Neuromus Re-Ed/Coord, W/C Management Training Treatment Duration: May 04, 2021 Frequency: At least 5 of 7 days/Wk (IRF) Estimated Hrs Per Day: 1.5 hours per day Agreement: Yes Rehab Potential: Fair Time/GCodes Start Time: 11:00 Stop Time: 11:30 Total Time Billed (hr/min): 30 Billed Treatment Time 1 visit EX x2 Latoya Becker OT Apr 19, 2021 11:40
--- NOTE | 2021-04-19 12:24 | PM&R Progress Note ---
Subjective HPI/CC On Admission Date Seen by Provider: Apr 19, 2021 Time Seen by Provider: 12:30 Subjective/Events-last exam 04/19/2021: Pt stood and walked two steps today Wedge in left foot in shoe for foot drop has been helpful Zofran IV will be given every morning 04/18/2021: Pt doing well Catheter will be kept until decubitus ulcer heals BNO suppositories will be ordered for bladder spasms IV iron infusions completed Left foot drop is improving 04/17/2021: Pt doing much better Foot drop will be worked on today Getting up and around today Checked meds and labs Nausea improved 04/16/2021: Pt having some nausea Wound vac came off yesterday, replacing that today IV Zofran given for nausea Garett will restart the wound vac Consulting urology for bladder spasms 04/15/2021: Patient doing very well Visitors today No pain is reported Wound VAC in place Fecal incontinence continues 04/14/2021: Patient doing very well today Stood with a walker today at bedside No pain is reported Wound VAC in place 04/13/21: Patient doing well Scop patch resolving the nausea Pain controlled Wound vac changed No issues 04/12/2021: Scopolamine patch working well Patient doing well Wound VAC maintained Check meds and labs No pain Eating and drinking well Scopolamine patch working well 04/11/2021: Patient doing well Fecal incontinence again last night Participating in therapy Wound VAC changed 04/10/2021: Patient doing well No major concerns PICC line dysfunction will be assessed Foot drop will be addressed with AFO Incontinent of bowel last night 04/09/2021: Patient doing really well Labs stable Hemoglobin 8.6 Wound VAC working well Getting ready to go the parallel bars with physical therapy 04/08/2021: Patient doing very well Was up 4 times yesterday out of bed Loose stools only has occurred once May need to use Questran as needed Check meds labs 04/07/2021: Patient doing very well We will get up in chair for lunch Hemoglobin 8.6 Bowels are moving now so on verge of constipation will change Questran to as needed no pain is reported Wound VAC tolerated well Review of Systems General: Fatigue, Malaise Neurological: Weakness Objective Exam Vital Signs Vital Signs Date Time Temp Pulse Resp B/P (MAP) Pulse Ox O2 Delivery O2 Flow Rate FiO2 04/19/21 19:51 Room Air 04/19/21 19:50 36.2 84 18 117/58 (77) 100 Capillary Refill : General Appearance: No Apparent Distress, WD/WN, Chronically ill, Other (pale, chronically ill) HEENT: PERRL/EOMI, Normal ENT Inspection, Pharynx Normal Neck: Full Range of Motion, Normal Inspection, Non Tender, Supple, Carotid Bruit Respiratory: Chest Non Tender, Lungs Clear, Normal Breath Sounds, No Accessory Muscle Use, No Respiratory Distress Cardiovascular: Regular Rate, Rhythm, No Edema, No Gallop, No JVD, No Murmur, Normal Peripheral Pulses Gastrointestinal: Normal Bowel Sounds, No Organomegaly, No Pulsatile Mass, Non Tender, Soft Back: Normal Inspection, No CVA Tenderness, No Vertebral Tenderness Extremity: Normal Capillary Refill, Normal Inspection, Normal Range of Motion, Non Tender, No Calf Tenderness, No Pedal Edema Neurologic/Psychiatric: Alert, Oriented x3, No Motor/Sensory Deficits, skoog operator II- XII Norm as Tested, Depressed Affect, Motor Weakness (3/5 upper 1/5 lower) Skin: Normal Color, Warm/Dry, Other (coccyx decubitus ulcer with wound vac) Lymphatic: No Adenopathy Results/Procedures Lab Patient resulted labs reviewed. FIM Transfers Therapy Code Descriptions/Definitions Functional [place] Measure: 0=Not Assessed/NA 4=Minimal Assistance 1=Total Assistance 5=Supervision or Setup 2=Maximal Assistance 6=Modified [place] 3=Moderate Assistance 7=Complete IndependenceSCALE: Activities may be completed with or without assistive devices. 7-Unnktndjvc-ojtcqkl completes the activity by him/herself with no assistance from a helper. 5-Set-up or Clean-up Assistance-helper sets up or cleans up; patient completes activity. [place] assists only prior to or following the activity. 4-Supervision or Touching Assistance-helper provides verbal cues and/or touching/steadying and/or contact guard assistance as patient completes activity. Assistance may be provided throughout the activity or intermittently. 3-Partial/Moderate Assistance-helper does LESS THAN HALF the effort. [place] lifts, holds or supports trunk or limbs, but provides less than half the effort. 2-Substantial/Maximal Assistance-helper does MORE THAN HALF the effort. [place] lifts or holds trunk or limbs and provides more than half the effort. 9-Lpoduhtlk-ongvgd does ALL the effort. Patient does none of the effort to complete the activity. Or, the assistance of 2 or more helpers is required for the patient to complete the activity. If activity was not attempted, code reason: 7-Patient Refused. 9-Not Applicable-not attempted and the patient did not perform the activity before the current illness, exacerbation or injury. 10-Not Attempted due to Environmental Limitations-(lack of equipment, weather restraints, etc.). 88-Not Attempted due to Medical Conditions or Safety Concerns. Roll Left to Right (QC): 6 Sit to Lying (QC): 3 Sit to Stand (QC): 3 Chair/Plz-ip-Rbmlf Xfer(QC): 3 Car Transfer (QC): 1 Gait Training Does the Patient Walk?: No and Walking Goal IS indicated Distance: 3'x5 Walk 10 feet (QC): 88 Walk 50 ft with 2 Turns(QC): 88 Walk 150 ft (QC): 88 Walking 10ft/uneven surface-QC: 88 Gait Persons Needed: 1 Gait Assistive Device: Parallel Bars Wheelchair Training Does the Pt Use a Wheelchair?: Yes Distance: 150 Wheel 50 ft with 2 turns (QC): 4 Wheel 150 ft (QC): 3 Type of Wheelchair: Manual Stair Training #of Steps: 0 1 Step (curb) (QC): 88 4 Steps (QC): 88 12 Steps (QC): 88 Balance Picking up an Object (QC): 88 ADL-Treatment Eating (QC): 6 Oral Hygiene (QC): 6 Shower/Bathe Self (QC): 3 Upper Body Dressing (QC): 5 Lower Body Dressing (QC): 3 On/Off Footwear (QC): 2 Toileting Hygiene (QC): 1 Toilet Transfer (QC): 1 Assessment/Plan Assessment and Plan Assess & Plan/Chief Complaint Assessment: Post Covid with deconditioning s/p severe sepsis Diarrhea Sacral decubitus ulcer Hypokalemia Anemia previous transfusion Anxiety and Depression Fernandez catheter 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 Ongoing nausea improved Scopolamine patch Plan: IV abx Wound vac PT OT Depression meds OAC 04/07/2021: Wound VAC Out of bed 04/08/2021: Out of bed Wound VAC 04/09/2021: Supportive care Dramatic improvement already 04/10/2021: Supportive care Fernandez catheter required although it is an infection risk 04/11/2021: Supportive care Wound VAC appreciated 04/12/2021: Scopolamine patch Wound VAC 04/13/21: Scop patch Monitor pain 04/14/2021: Supportive care Wound VAC 04/14/2021: Wound VAC Fecal incontinence management 04/15/2021: Wound VAC management Continue depression treatment 04/16/2021: Supportive care Change wound VAC 04/17/2021: Appreciate wound care Cefepime 04/18/2021: Continue aggressive PT Wound VAC 04/19/2021: Supportive care Hold potassium to see if that helps with nausea (1) Post covid-19 condition, unspecified Status: Chronic (2) Sacral decubitus ulcer, stage IV Status: Chronic (3) Severe sepsis Status: Acute (4) UTI (urinary tract infection) TERRA EDWARDS DO Apr 19, 2021 12:24
[2021-04-19 19:50] VITALS: BP 117/58
[2021-04-19] MEDS: MELATONIN 10 MG TABLET PO SCH (21:31)
[2021-04-19] MEDS: TOLTERODINE LA 4 MG (DETROL) CAP PO SCH (21:31)
[2021-04-20] MEDS: MULTIVIT W/MINERALS TAB (THERAGRAN M) PO SCH (06:09)
[2021-04-20] MEDS: VENlafaxine XR 75 MG (EFFEXOR XR) CAP PO SCH (06:09)
[2021-04-20] MEDS: ONDANSETRON 4 MG/2 ML (SDV) Z0FRAN IVP PRN (06:09)
[2021-04-20] MEDS: CATHETER FLUSH 10 ML SYR IV SCH ×3 (06:09→21:45)
[2021-04-20] MEDS: CEFEPIME INJECTION 2,000 MG in NS (IVPB) 50 ML IV SCH ×3 (06:09→21:41)
[2021-04-20 08:00] VITALS: BP 107/58
--- NOTE | 2021-04-20 08:58 | Physical Therapy Daily Note ---
PT Daily Note-Current Subjective Pt. in bed, just finishing breakfast. Agrees to Rx. Wants to shower when given choices Pain Location: No Pain Reported Mental Status Patient Orientation: Normal For Age Attachments: Other-See Comments (wound vacc) Transfers SCALE: Activities may be completed with or without assistive devices. 0-Jbiesmuqtj-jkefcai completes the activity by him/herself with no assistance from a helper. 5-Set-up or Clean-up Assistance-helper sets up or cleans up; patient completes activity. [place] assists only prior to or following the activity. 4-Supervision or Touching Assistance-helper provides verbal cues and/or touching/steadying and/or contact guard assistance as patient completes activity . Assistance may be provided throughout the activity or intermittently. 3-Partial/Moderate Assistance-helper does LESS THAN HALF the effort. [place] lifts, holds or supports trunk or limbs, but provides less than half the effort. 2-Substantial/Maximal Assistance-helper does MORE THAN HALF the effort. [place] lifts or holds trunk or limbs and provides more than half the effort. 1-Ocxxbjwvi-wqwloo does ALL the effort. Patient does none of the effort to complete the activity. Or, the assistance of 2 or more helpers is required for the patient to complete the activity. If activity was not attempted, code reason: 7-Patient Refused. 9-Not Applicable-not attempted and the patient did not perform the activity before the current illness, exacerbation or injury. 10-Not Attempted due to Environmental Limitations-(lack of equipment, weather restraints, etc.). 88-Not Attempted due to Medical Conditions or Safety Concerns. Roll Left & Right (QC): 6 Sit to Lying (QC): 6 Lying to Sitting/Side of Bed(Q: 6 Sit to Stand (QC): 3 Chair/Sew-lw-Ixhxq Xfer(QC): 3 Toilet Transfer (QC): 3 emphasis on TRFs SPT bed to w/c, w/c to shower bench, bench to w/c, w/c to toilet and back, and w/c to bed as well as sit to stand at bed using bed rail to pull up to complete donning brief. PT OT co Rx secondary to limited activity tolerance and required skills of 2 clinicians for coordination of U&L extremity activity Weight Bearing Right Lower Extremity: Right Full Weight Bearing Left Lower Extremity: Left Full Weight Bearing Patient is cleared medically to bear weight through bilateral LEs, however due to prolonged illness and bed rest, patients LE's very weak and plantarflexion contractures bilaterally Wheelchair Training Does the Pt Use a Wheelchair?: Yes Type of Wheelchair: Manual 12 -15 ft to from bthrm in room, needs some assist to position w/c for max efficiency Exercises Supine Ex: Straight leg raise (for nueral glides) Supine Reps: 3 (x 15 sec hold) in supine pt. was trialed for neural glides, OT assisting to position head/neck/ upper body gently while HEAVY THREADER did gentle SLR , HS and DF of foot. pt. noted slight stretch Neuromuscular neural stretches as described above Treatments PT OT co Rx for TRFs and shower , dressing and stretches/glides Assessment Current Status: Good Progress gives full effort, progress noted in TRF skills etc PT Short Term Goals Short Term Goals Time Frame: Apr 20, 2021 Roll Left & Right: 4 Sit to lyin Lying to sitting on side of be: 4 Sit to stand: 3 Chair/dnp-zs-vkeaq transfer: 3 Toilet transfer: 3 Car transfer: 3 Walk 10 feet: 2 Walk 50 feet with two turns: 1 Walk 150 feet: 1 Does pt use a wc or scooter: Yes Wheel 50ft w/2 turns: 5 Wheel 150 feet: 5 Type: Manual PT Shelter Goals Shelter Goals PT Software Tester Goals Time Frame: May 18, 2021 Roll Left & Right (QC): 6 Sit to Lying (QC): 6 Lying-Sitting on Side/Bed(QC): 6 Sit to Stand (QC): 4 Chair/Qoy-ag-Fqcpg Xfer(QC): 4 Toilet Transfer (QC): 4 Car Transfer (QC): 4 Does the Patient Walk: Yes Walk 10 feet (QC): 3 Walk 50ft with 2 Turns (QC): 3 Walk 150 ft (QC): 3 Walking 10ft on Uneven Surface: 3 1 Step (curb) (QC): 2 4 Steps (QC): 2 12 Steps (QC): 88 Picking up an Object (QC): 3 Does the Pt use WC or Scooter?: Yes Wheel 50 feet with 2 turns (QC: 6 Type: Manual Wheel 150 feet: 6 Type: Manual (6) PT Plan Treatment/Plan Treatment Plan: Continue Plan of Care Treatment Plan: Bed Mobility, Education, Functional Activity John [place], Functional Strength, Group Therapy, Gait, Safety, Therapeutic Exercise, Transfers Treatment Duration: May 18, 2021 Frequency: At least 5 of 7 days/Wk (IRF) Estimated Hrs Per Day: 1.5 hours per day Patient and/or Family Agrees t: Yes Safety Risks/Education Patient Education: Transfer Techniques, Correct Positioning, Disease Process, Safety Issues Teaching Recipient: Patient, Primary Caregiver Teaching Methods: Discussion Response to Teaching: Verbalize Understanding, Return Demonstration, Reinforcement Needed Time/GCodes Time In: 800 Time Out: 900 Total Billed Treatment Time: 60 Total Billed Treatment 1,FA50m,EX10m (PT OT co Rx 60m) KRISSY SHEPHERD HEAVY THREADER Apr 20, 2021 08:58
--- NOTE | 2021-04-20 09:12 | Occupational Ther Daily Note ---
OT Current Status-Daily Note Subjective Pt requests shower. Agreeable to co-treat as pt requires 2 skilled clinicians due to weakness, decreased activity tolerance, high fall risk, as well as need for addressing multiple areas with 2 different professionals. Appearance Returned to supine in bed, all needs within reach. RN notified. Mental Status/Objective Attachments: Drains, Fernandez Catheter, IV ADL-Treatment Therapy Code Descriptions/Definitions Functional [place] Measure: 0=Not Assessed/NA 4=Minimal Assistance 1=Total Assistance 5=Supervision or Setup 2=Maximal Assistance 6=Modified [place] 3=Moderate Assistance 7=Complete IndependenceSCALE: Activities may be completed with or without assistive devices. 7-Ihhetfoqoj-fkkklvu completes the activity by him/herself with no assistance from a helper. 5-Set-up or Clean-up Assistance-helper sets up or cleans up; patient completes activity. [place] assists only prior to or following the activity. 4-Supervision or Touching Assistance-helper provides verbal cues and/or touching/steadying and/or contact guard assistance as patient completes activity. Assistance may be provided throughout the activity or intermittently. 3-Partial/Moderate Assistance-helper does LESS THAN HALF the effort. [place] lifts, holds or supports trunk or limbs, but provides less than half the effort. 2-Substantial/Maximal Assistance-helper does MORE THAN HALF the effort. [place] lifts or holds trunk or limbs and provides more than half the effort. 9-Sscqtevmr-jeewgn does ALL the effort. Patient does none of the effort to complete the activity. Or, the assistance of 2 or more helpers is required for the patient to complete the activity. If activity was not attempted, code reason: 7-Patient Refused. 9-Not Applicable-not attempted and the patient did not perform the activity before the current illness, exacerbation or injury. 10-Not Attempted due to Environmental Limitations-(lack of equipment, weather restraints, etc.). 88-Not Attempted due to Medical Conditions or Safety Concerns. Eating (QC): 6 Shower/Bathe Self (QC): 3 Upper Body Dressing (QC): 5 Lower Body Dressing (QC): 2 Toilet Transfer (QC): 2 Shower performed; 100% completed in sitting. Good recall on use of LHS to wash below knees. Min a to wash buttocks while pt performed lateral pelvic leans R/L. Pt sat in W/C to thread BLE's into brief with us of sign carpenter, improved speed with task. Lower QC score only due to clothing management performed in standing vs at bed level. Pt stood at bed rail, dependent to pull brief over hips due to needing BUE support on railing. Poor standing tolerance as pt only able to tolerate long enough to complete task. Other Treatment Pt performed multiple functional transfers throughout session. bed<>w/c<>shower bench, and w/c<>toilet (commode over toilet for increased height). Pt Completes all Squat pivot transfer with mod-max a with intermittent use of grab bar when present. Mod verbal cues on technique and set up/positioning with all transfers. Once in supine, pt. performed neural glides, OT assisting to position head/neck/ upper body gently while BUSINESS TRANSFORMATION MANAGER did gentle SLR , HS and DF of foot. Pt reports fatigue at end of session and requests to remain in bed. Education OT Patient Education: Correct positioning, Energy conservation, Modified ADL techniques, Progress toward Goal/Update tx plan, Purpose of tx/functional activities, Safety issues, Transfer techniques, W/C management Teaching Recipient: Patient Teaching Methods: Demonstration, Discussion Response to Teaching: Verbalize Understanding, Return Demonstration OT Short Term Goals Short Term Goals Time Frame: Apr 20, 2021 Eatin Oral hygiene: 5 Toileting hygiene: 2 Shower/bathe self: 2 Upper body dressin Lower body dressin Putting on/taking off footwear: 2 OT Correction Goals Edge Inker Heels Goals Time Frame: May 04, 2021 Eating (QC): 6 Oral Hygiene (QC): 5 Toileting Hygiene (QC): 4 Shower/Bathe Self (QC): 4 Upper Body Dressing (QC): 5 Lower Body Dressing (QC): 4 On/Off Footwear (QC): 4 1=Demonstrate adherence to instructed precautions during ADL tasks. 2=Patient will verbalize/demonstrate understanding of assistive devices/modifications for ADL. 3=Patient will improve strength/tolerance for activity to enable patient to perform ADL's. OT Education/Plan Problem List/Assessment Assessment: Decreased Activ Tolerance, Decreased UE Strength, Impaired Funct Balance, Impaired I ADL's, Impaired Self-Care Skills Discharge Recommendations Plan/Recommendations: Continue POC Equpiment Recommendations-D/C: Rails on Tub/Shower, Toilet Riser with Rails, Extended Shower Sprayer Treatment Plan/Plan of Care Treatment,Training & Education: Yes Patient would benefit from OT for education, treatment and training to promote independence in ADL's, mobility, safety and/or upper extremity function for ADL's. Plan of Care: ADL Retraining, Functional Mobility, Group Exercise/Act as Ind, UE Funct Exercise/Act, UE Neuromus Re-Ed/Coord, W/C Management Training Treatment Duration: May 04, 2021 Frequency: At least 5 of 7 days/Wk (IRF) Estimated Hrs Per Day: 1.5 hours per day Agreement: Yes Rehab Potential: Fair Time/GCodes Start Time: 07:40 Stop Time: 09:10 Total Time Billed (hr/min): 90 Billed Treatment Time 1 visit ADL x5 Latoya Barreto OT Apr 20, 2021 09:12
[2021-04-20] MEDS: OXYBUTYNIN (DITROPAN) 5 MG TAB PO SCH ×3 (09:50→21:42)
[2021-04-20] MEDS: ATENOLOL 25 MG (TENORMIN) TAB PO SCH ×2 (09:50→20:01)
[2021-04-20] MEDS: SERTRALINE 50 MG (ZOLOFT) TABLET PO SCH (09:50)
[2021-04-20] MEDS: CHOLESTYRAMINE 4 GM (QUESTRAN LITE, PREVALITE) PKT PO PRN (09:50)
[2021-04-20] MEDS: FERROUS SULF 325 MG (IRON) TAB PO SCH (09:50)
[2021-04-20] MEDS: LACTOBACILLUS ACIDOPHILUS (PROBIOTIC) CAPSULE PO SCH ×3 (09:50→17:05)
[2021-04-20] MEDS: MESALAMINE 250 MG (PENTASA) CAP PO SCH ×3 (09:50→21:42)
[2021-04-20] MEDS: APIXABAN 5 MG (ELIQUIS) TABLET PO SCH ×2 (09:50→21:42)
[2021-04-20] MEDS: LOPERAMIDE 2 MG (IMODIUM) TABLET PO PRN (09:50)
[2021-04-20] MEDS: HYDROcodone/APAP 7.5 MG/325 MG (LORTAB, LORCET PLUS) TABLET PO SCH ×4 (09:51→21:42)
[2021-04-20] MEDS: COLLAGENASE 30 GM (SANTYL) TUBE TP SCH ×2 (09:52→20:02)
[2021-04-20] MEDS: MICONAZOLE 2% POWDER (DESENEX AF) 90 GM TOP SCH ×2 (09:52→20:01)
[2021-04-20] MEDS: NYSTATIN CREAM (MYCOSTATIN) 30 GM TUBE TP SCH ×3 (09:52→20:01)
[2021-04-20] MEDS: polyethylene glycoL POWDER 17 GM (MIRALAX) PACK PO SCH ×2 (09:52→20:01)
--- NOTE | 2021-04-20 11:28 | PM&R Progress Note ---
Subjective HPI/CC On Admission Date Seen by Provider: Apr 20, 2021 Time Seen by Provider: 11:00 Subjective/Events-last exam 04/20/2021: Pt doing really well Wound vac was changed IV Zofran given every morning Changed her Scopolamine patch Children will visit tomorrow 04/19/2021: Pt stood and walked two steps today Wedge in left foot in shoe for foot drop has been helpful Zofran IV will be given every morning 04/18/2021: Pt doing well Catheter will be kept until decubitus ulcer heals BNO suppositories will be ordered for bladder spasms IV iron infusions completed Left foot drop is improving 04/17/2021: Pt doing much better Foot drop will be worked on today Getting up and around today Checked meds and labs Nausea improved 04/16/2021: Pt having some nausea Wound vac came off yesterday, replacing that today IV Zofran given for nausea Garett will restart the wound vac Consulting urology for bladder spasms 04/15/2021: Patient doing very well Visitors today No pain is reported Wound VAC in place Fecal incontinence continues 04/14/2021: Patient doing very well today Stood with a walker today at bedside No pain is reported Wound VAC in place 04/13/21: Patient doing well Scop patch resolving the nausea Pain controlled Wound vac changed No issues 04/12/2021: Scopolamine patch working well Patient doing well Wound VAC maintained Check meds and labs No pain Eating and drinking well Scopolamine patch working well 04/11/2021: Patient doing well Fecal incontinence again last night Participating in therapy Wound VAC changed 04/10/2021: Patient doing well No major concerns PICC line dysfunction will be assessed Foot drop will be addressed with AFO Incontinent of bowel last night 04/09/2021: Patient doing really well Labs stable Hemoglobin 8.6 Wound VAC working well Getting ready to go the parallel bars with physical therapy 04/08/2021: Patient doing very well Was up 4 times yesterday out of bed Loose stools only has occurred once May need to use Questran as needed Check meds labs 04/07/2021: Patient doing very well We will get up in chair for lunch Hemoglobin 8.6 Bowels are moving now so on verge of constipation will change Questran to as needed no pain is reported Wound VAC tolerated well Review of Systems General: Fatigue, Malaise Musculoskeletal: back pain Objective Exam Vital Signs Vital Signs Date Time Temp Pulse Resp B/P (MAP) Pulse Ox O2 Delivery O2 Flow Rate FiO2 04/20/21 20:30 Room Air 04/20/21 20:00 36.3 98 16 99/70 (80) 96 04/20/21 14:41 0.00 Capillary Refill : General Appearance: No Apparent Distress, WD/WN, Chronically ill, Other (pale, chronically ill) HEENT: PERRL/EOMI, Normal ENT Inspection, Pharynx Normal Neck: Full Range of Motion, Normal Inspection, Non Tender, Supple, Carotid Bruit Respiratory: Chest Non Tender, Lungs Clear, Normal Breath Sounds, No Accessory Muscle Use, No Respiratory Distress Cardiovascular: Regular Rate, Rhythm, No Edema, No Gallop, No JVD, No Murmur, Normal Peripheral Pulses Gastrointestinal: Normal Bowel Sounds, No Organomegaly, No Pulsatile Mass, Non Tender, Soft Back: Normal Inspection, No CVA Tenderness, No Vertebral Tenderness Extremity: Normal Capillary Refill, Normal Inspection, Normal Range of Motion, Non Tender, No Calf Tenderness, No Pedal Edema Neurologic/Psychiatric: Alert, Oriented x3, No Motor/Sensory Deficits, 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 FIM Transfers Therapy Code Descriptions/Definitions Functional [place] Measure: 0=Not Assessed/NA 4=Minimal Assistance 1=Total Assistance 5=Supervision or Setup 2=Maximal Assistance 6=Modified [place] 3=Moderate Assistance 7=Complete IndependenceSCALE: Activities may be completed with or without assistive devices. 1-Mltuuuzdqb-mbesbul completes the activity by him/herself with no assistance from a helper. 5-Set-up or Clean-up Assistance-helper sets up or cleans up; patient completes activity. [place] assists only prior to or following the activity. 4-Supervision or Touching Assistance-helper provides verbal cues and/or touc kevin/steadying and/or contact guard assistance as patient completes activity. Assistance may be provided throughout the activity or intermittently. 3-Partial/Moderate Assistance-helper does LESS THAN HALF the effort. [place] lifts, holds or supports trunk or limbs, but provides less than half the effort. 2-Substantial/Maximal Assistance-helper does MORE THAN HALF the effort. [place] lifts or holds trunk or limbs and provides more than half the effort. 6-Zzmkzfzyh-snzagy does ALL the effort. Patient does none of the effort to complete the activity. Or, the assistance of 2 or more helpers is required for the patient to complete the activity. If activity was not attempted, code reason: 7-Patient Refused. 9-Not Applicable-not attempted and the patient did not perform the activity before the current illness, exacerbation or injury. 10-Not Attempted due to Environmental Limitations-(lack of equipment, weather restraints, etc.). 88-Not Attempted due to Medical Conditions or Safety Concerns. Roll Left to Right (QC): 6 Sit to Lying (QC): 6 Sit to Stand (QC): 3 Chair/Irx-mh-Iwibe Xfer(QC): 3 Car Transfer (QC): 1 Gait Training Does the Patient Walk?: No and Walking Goal IS indicated Distance: 3'x5 Walk 10 feet (QC): 88 Walk 50 ft with 2 Turns(QC): 88 Walk 150 ft (QC): 88 Walking 10ft/uneven surface-QC: 88 Gait Persons Needed: 1 Gait Assistive Device: Parallel Bars Wheelchair Training Does the Pt Use a Wheelchair?: Yes Distance: 150 Wheel 50 ft with 2 turns (QC): 4 Wheel 150 ft (QC): 3 Type of Wheelchair: Manual Stair Training #of Steps: 0 1 Step (curb) (QC): 88 4 Steps (QC): 88 12 Steps (QC): 88 Balance Picking up an Object (QC): 88 ADL-Treatment Eating (QC): 6 Oral Hygiene (QC): 6 Shower/Bathe Self (QC): 3 Upper Body Dressing (QC): 5 Lower Body Dressing (QC): 2 On/Off Footwear (QC): 2 Toileting Hygiene (QC): 1 Toilet Transfer (QC): 2 Assessment/Plan Assessment and Plan Assess & Plan/Chief Complaint Assessment: Post Covid with deconditioning s/p severe sepsis Diarrhea Sacral decubitus ulcer Hypokalemia Anemia previous transfusion Anxiety and Depression Fernandez catheter 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 Ongoing nausea improved Scopolamine patch Plan: IV abx Wound vac PT OT Depression meds OAC 04/07/2021: Wound VAC Out of bed 04/08/2021: Out of bed Wound VAC 04/09/2021: Supportive care Dramatic improvement already 04/10/2021: Supportive care Fernandez catheter required although it is an infection risk 04/11/2021: Supportive care Wound VAC appreciated 04/12/2021: Scopolamine patch Wound VAC 04/13/21: Scop patch Monitor pain 04/14/2021: Supportive care Wound VAC 04/14/2021: Wound VAC Fecal incontinence management 04/15/2021: Wound VAC management Continue depression treatment 04/16/2021: Supportive care Change wound VAC 04/17/2021: Appreciate wound care Cefepime 04/18/2021: Continue aggressive PT Wound VAC 04/19/2021: Supportive care Hold potassium to see if that helps with nausea 04/20/2021: Supportive care Children will visit tomorrow (1) Post covid-19 condition, unspecified Status: Chronic (2) Sacral decubitus ulcer, stage IV Status: Chronic (3) Severe sepsis Status: Acute (4) UTI (urinary tract infection) TERRA EDWARDS DO Apr 20, 2021 11:28
--- NOTE | 2021-04-20 11:50 | Physician Query Clarification ---
PQ-Intro New Diagnosis Admission/Discharge Admission Date: Apr 06, 2021 at 09:52 Discharge Date: Dr. Cardoso, The medical record reflects the following clinical scenario: History/Risk Factors: post covid syndrome, decubitus ulcer sacrum stg 4 w/ acute osteomyelitis - pseudomonas infection Clinical Findings: Motor Weakness (3/5 upper 1/5 lower), hospitalized since October 2020, lost 100# Treatment: rehab Question: What condition best reflects the above clinical scenario? Please document a response in the Progress Noter or Discharge Summary. 1. Critical illness myopathy 2. Debility not further specified 3. Other, with explanation of the clinical findings. 4. Clinically undetermined, no explanation for the clinical findings. PHYSICIAN RESPONSE What condition reflects above: 1 Please remember a lack of response to the above will prompt a phone page by CDI/Coding staff. In responding to this query, please exercise your independent professional judgment. The purpose of this communication is to more accurately reflect the complexity of your patients condition. The fact that a question is asked does not imply that any particular answer is desired or expected. Thank you for your timely response to this clarification. Requestors name: Eliane THIS PHYSICIAN QUERY FORM IS A PERMANENT PART OF THE MEDICAL RECORD ELIANE MONTENEGRO Apr 20, 2021 11:49 TERRA CARDOSO DO Apr 20, 2021 14:26
[2021-04-20] MEDS: SCOPOLAMINE 1.5 MG (TRANSDERM-SCOP) PATCH TD SCH (11:52)
[2021-04-20] MEDS: SCOPOLAMINE PATCH REMOVAL TP SCH (11:53)
--- NOTE | 2021-04-20 11:56 | Physician Query Clarification ---
PQ-Intro New Diagnosis Admission/Discharge Admission Date: Apr 06, 2021 at 09:52 Discharge Date: Dr. Cardoso, The medical record reflects the following clinical scenario: History/Risk Factors: post covid syndrome, decubitus ulcer sacrum stg 4, acute osteomyelitis w/pseudomonas, debility Clinical Findings: LE very weak, bilateral plantarflexion contractures per PT Treatment: Physical therapy Question: What condition best reflects the above clinical scenario? Please document a response in the Progress Noter or Discharge Summary. 1. bilateral plantarflexion contractures 2. lower extremity weakness 3. Other, with explanation of the clinical findings. 4. Clinically undetermined, no explanation for the clinical findings. PHYSICIAN RESPONSE What condition reflects above: 1 Please remember a lack of response to the above will prompt a phone page by CDI/Coding staff. In responding to this query, please exercise your independent professional judgment. The purpose of this communication is to more accurately reflect the complexity of your patients condition. The fact that a question is asked does not imply that any particular answer is desired or expected. Thank you for your timely response to this clarification. Requestors name: Eliane THIS PHYSICIAN QUERY FORM IS A PERMANENT PART OF THE MEDICAL RECORD ELIANE MONTENEGRO Apr 20, 2021 11:55 TERRA CARDOSO DO Apr 20, 2021 14:26
--- NOTE | 2021-04-20 13:44 | Physical Therapy Daily Note ---
PT Daily Note-Current Subjective C/o some nausea. Nursing present , pt. being cleaned up after incont of BM Pain Location: No Pain Reported Mental Status Patient Orientation: Normal For Age Attachments: Other-See Comments ([place]) Transfers SCALE: Activities may be completed with or without assistive devices. 0-Zgjxvdarvz-qmomgrw completes the activity by him/herself with no assistance from a helper. 5-Set-up or Clean-up Assistance-helper sets up or cleans up; patient completes activity. [place] assists only prior to or following the activity. 4-Supervision or Touching Assistance-helper provides verbal cues and/or touching/steadying and/or contact guard assistance as patient completes activity. Assistance may be provided throughout the activity or intermittently. 3-Partial/Moderate Assistance-helper does LESS THAN HALF the effort. [place] lifts, holds or supports trunk or limbs, but provides less than half the effort. 2-Substantial/Maximal Assistance-helper does MORE THAN HALF the effort. [place] lifts or holds trunk or limbs and provides more than half the effort. 0-Annyhcphl-ayzzih does ALL the effort. Patient does none of the effort to complete the activity. Or, the assistance of 2 or more helpers is required for the patient to complete the activity. If activity was not attempted, code reason: 7-Patient Refused. 9-Not Applicable-not attempted and the patient did not perform the activity before the current illness, exacerbation or injury. 10-Not Attempted due to Environmental Limitations-(lack of equipment, weather restraints, etc.). 88-Not Attempted due to Medical Conditions or Safety Concerns. rolling left and right indep as well as scooting up in bed with HOB down etc, pt. also scoots buttocks/hips left and right indep Weight Bearing Right Lower Extremity: Right Full Weight Bearing Left Lower Extremity: Left Full Weight Bearing Patient is cleared medically to bear weight through bilateral LEs, however due to prolonged illness and bed rest, patients LE's very weak and plantarflexion contractures bilaterally Exercises Hamstring stretches bilat with HC stretch simultaneously x 5 reps at 20 sec hold, HC and HS also individually x5 with 20 s hold. Adduction stretch x 5 bilat 20 sec hold. Pt. declined donning of multipodus boots and opted to get in position to eat lunch which she put off early secondary to nausea Treatments rolling, positioning, neural gliding, stretches Assessment Current Status: Good Progress no improvement noted in HS or heel cord length PT Short Term Goals Short Term Goals Time Frame: Apr 20, 2021 Roll Left & Right: 4 Sit to lyin Lying to sitting on side of be: 4 Sit to stand: 3 Chair/uzb-nj-hrllf transfer: 3 Toilet transfer: 3 Car transfer: 3 Walk 10 feet: 2 Walk 50 feet with two turns: 1 Walk 150 feet: 1 Does pt use a wc or scooter: Yes Wheel 50ft w/2 turns: 5 Wheel 150 feet: 5 Type: Manual PT Mcfp Goals Mcfp Goals PT Thermometer Maker Goals Time Frame: May 18, 2021 Roll Left & Right (QC): 6 Sit to Lying (QC): 6 Lying-Sitting on Side/Bed(QC): 6 Sit to Stand (QC): 4 Chair/Viz-at-Nlyjm Xfer(QC): 4 Toilet Transfer (QC): 4 Car Transfer (QC): 4 Does the Patient Walk: Yes Walk 10 feet (QC): 3 Walk 50ft with 2 Turns (QC): 3 Walk 150 ft (QC): 3 Walking 10ft on Uneven Surface: 3 1 Step (curb) (QC): 2 4 Steps (QC): 2 12 Steps (QC): 88 Picking up an Object (QC): 3 Does the Pt use WC or Scooter?: Yes Wheel 50 feet with 2 turns (QC: 6 Type: Manual Wheel 150 feet: 6 Type: Manual (6) PT Plan Treatment/Plan Treatment Plan: Continue Plan of Care Treatment Plan: Bed Mobility, Education, Functional Activity John Paul, Functional Strength, Group Therapy, Gait, Safety, Therapeutic Exercise, Transfers Treatment Duration: May 18, 2021 Frequency: At least 5 of 7 days/Wk (IRF) Estimated Hrs Per Day: 1.5 hours per day Patient and/or Family Agrees t: Yes Safety Risks/Education Patient Education: Correct Positioning, Disease Process, Safety Issues Time/GCodes Time In: 1310 Time Out: 1340 Total Billed Treatment Time: 30 Total Billed Treatment 1,EX30m KRISSY SHEPHERD SYSTEM TRAINER Apr 20, 2021 13:43
[2021-04-20 20:00] VITALS: BP 99/70
[2021-04-20] MEDS: MELATONIN 10 MG TABLET PO SCH (21:42)
[2021-04-20] MEDS: TOLTERODINE LA 4 MG (DETROL) CAP PO SCH (21:42)
[2021-04-21] MEDS: CEFEPIME INJECTION 2,000 MG in NS (IVPB) 50 ML IV SCH ×3 (05:58→21:30)
[2021-04-21] MEDS: ONDANSETRON 4 MG/2 ML (SDV) Z0FRAN IVP PRN (05:59)
[2021-04-21] MEDS: CATHETER FLUSH 10 ML SYR IV SCH ×3 (05:59→21:31)
[2021-04-21] MEDS: VENlafaxine XR 75 MG (EFFEXOR XR) CAP PO SCH (06:52)
[2021-04-21] MEDS: MULTIVIT W/MINERALS TAB (THERAGRAN M) PO SCH (06:52)
[2021-04-21 09:00] VITALS: BP 104/64
[2021-04-21] MEDS: MESALAMINE 250 MG (PENTASA) CAP PO SCH ×3 (09:02→21:30)
[2021-04-21] MEDS: OXYBUTYNIN (DITROPAN) 5 MG TAB PO SCH ×3 (09:02→21:30)
[2021-04-21] MEDS: LACTOBACILLUS ACIDOPHILUS (PROBIOTIC) CAPSULE PO SCH ×3 (09:02→18:48)
[2021-04-21] MEDS: FERROUS SULF 325 MG (IRON) TAB PO SCH (09:03)
[2021-04-21] MEDS: APIXABAN 5 MG (ELIQUIS) TABLET PO SCH ×2 (09:03→21:30)
[2021-04-21] MEDS: SERTRALINE 50 MG (ZOLOFT) TABLET PO SCH (09:03)
[2021-04-21] MEDS: HYDROcodone/APAP 7.5 MG/325 MG (LORTAB, LORCET PLUS) TABLET PO SCH ×4 (09:03→21:31)
[2021-04-21] MEDS: ATENOLOL 25 MG (TENORMIN) TAB PO SCH ×2 (09:03→21:39)
--- NOTE | 2021-04-21 09:22 | PM&R Progress Note ---
Subjective HPI/CC On Admission Date Seen by Provider: Apr 21, 2021 Time Seen by Provider: 12:30 Subjective/Events-last exam 04/21/21: Patient doing well Family visited with children Standing and pivoting very well 04/20/2021: Pt doing really well Wound vac was changed IV Zofran given every morning Changed her Scopolamine patch Children will visit tomorrow 04/19/2021: Pt stood and walked two steps today Wedge in left foot in shoe for foot drop has been helpful Zofran IV will be given every morning 04/18/2021: Pt doing well Catheter will be kept until decubitus ulcer heals BNO suppositories will be ordered for bladder spasms IV iron infusions completed Left foot drop is improving 04/17/2021: Pt doing much better Foot drop will be worked on today Getting up and around today Checked meds and labs Nausea improved 04/16/2021: Pt having some nausea Wound vac came off yesterday, replacing that today IV Zofran given for nausea Garett will restart the wound vac Consulting urology for bladder spasms 04/15/2021: Patient doing very well Visitors today No pain is reported Wound VAC in place Fecal incontinence continues 04/14/2021: Patient doing very well today Stood with a walker today at bedside No pain is reported Wound VAC in place 04/13/21: Patient doing well Scop patch resolving the nausea Pain controlled Wound vac changed No issues 04/12/2021: Scopolamine patch working well Patient doing well Wound VAC maintained Check meds and labs No pain Eating and drinking well Scopolamine patch working well 04/11/2021: Patient doing well Fecal incontinence again last night Participating in therapy Wound VAC changed 04/10/2021: Patient doing well No major concerns PICC line dysfunction will be assessed Foot drop will be addressed with AFO Incontinent of bowel last night 04/09/2021: Patient doing really well Labs stable Hemoglobin 8.6 Wound VAC working well Getting ready to go the parallel bars with physical therapy 04/08/2021: Patient doing very well Was up 4 times yesterday out of bed Loose stools only has occurred once May need to use Questran as needed Check meds labs 04/07/2021: Patient doing very well We will get up in chair for lunch Hemoglobin 8.6 Bowels are moving now so on verge of constipation will change Questran to as needed no pain is reported Wound VAC tolerated well Review of Systems General: Fatigue, Malaise Objective Exam Vital Signs Vital Signs Date Time Temp Pulse Resp B/P (MAP) Pulse Ox O2 Delivery O2 Flow Rate FiO2 04/21/21 20:45 36.2 86 20 98/52 (67) 96 Room Air 04/21/21 09:31 0.00 Capillary Refill : General Appearance: No Apparent Distress, WD/WN, Chronically ill, Other (pale, chronically ill) HEENT: PERRL/EOMI, Normal ENT Inspection, Pharynx Normal Neck: Full Range of Motion, Normal Inspection, Non Tender, Supple, Carotid Bruit Respiratory: Chest Non Tender, Lungs Clear, Normal Breath Sounds, No Accessory Muscle Use, No Respiratory Distress Cardiovascular: Regular Rate, Rhythm, No Edema, No Gallop, No JVD, No Murmur, Normal Peripheral Pulses Gastrointestinal: Normal Bowel Sounds, No Organomegaly, No Pulsatile Mass, Non Tender, Soft Back: Normal Inspection, No CVA Tenderness, No Vertebral Tenderness Extremity: Normal Capillary Refill, Normal Inspection, Normal Range of Motion, Non Tender, No Calf Tenderness, No Pedal Edema Neurologic/Psychiatric: Alert, Oriented x3, No Motor/Sensory Deficits, 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 FIM Transfers Therapy Code Descriptions/Definitions Functional [place] Measure: 0=Not Assessed/NA 4=Minimal Assistance 1=Total Assistance 5=Supervision or Setup 2=Maximal Assistance 6=Modified [place] 3=Moderate Assistance 7=Complete IndependenceSCALE: Activities may be completed with or without assistive devices. 7-Hwtxsewpfx-hdilrzc completes the activity by him/herself with no assistance from a helper. 5-Set-up or Clean-up Assistance-helper sets up or cleans up; patient completes activity. [place] assists only prior to or following the activity. 4-Supervision or Touching Assistance-helper provides verbal cues and/or touching/steadying and/or contact guard assistance as patient completes activity. Assistance may be provided throughout the activity or intermittently. 3-Partial/Moderate Assistance-helper does LESS THAN HALF the effort. [place] lifts, holds or supports trunk or limbs, but provides less than half the effort. 2-Substantial/Maximal Assistance-helper does MORE THAN HALF the effort. [place] lifts or holds trunk or limbs and provides more than half the effort. 4-Kpkhjsfkh-acyjqi does ALL the effort. Patient does none of the effort to complete the activity. Or, the assistance of 2 or more helpers is required for the patient to complete the activity. If activity was not attempted, code reason: 7-Patient Refused. 9-Not Applicable-not attempted and the patient did not perform the activity before the current illness, exacerbation or injury. 10-Not Attempted due to Environmental Limitations-(lack of equipment, weather restraints, etc.). 88-Not Attempted due to Medical Conditions or Safety Concerns. Roll Left to Right (QC): 6 Sit to Lying (QC): 6 Sit to Stand (QC): 3 Chair/Xhm-iw-Ybwcl Xfer(QC): 3 Car Transfer (QC): 1 Gait Training Does the Patient Walk?: No and Walking Goal IS indicated Distance: 3'x5 Walk 10 feet (QC): 88 Walk 50 ft with 2 Turns(QC): 88 Walk 150 ft (QC): 88 Walking 10ft/uneven surface-QC: 88 Gait Persons Needed: 1 Gait Assistive Device: Parallel Bars Wheelchair Training Does the Pt Use a Wheelchair?: Yes Distance: 150 Wheel 50 ft with 2 turns (QC): 4 Wheel 150 ft (QC): 3 Type of Wheelchair: Manual Stair Training #of Steps: 0 1 Step (curb) (QC): 88 4 Steps (QC): 88 12 Steps (QC): 88 Balance Picking up an Object (QC): 88 ADL-Treatment Eating (QC): 6 Oral Hygiene (QC): 6 Shower/Bathe Self (QC): 3 Upper Body Dressing (QC): 5 Lower Body Dressing (QC): 2 On/Off Footwear (QC): 2 Toileting Hygiene (QC): 1 Toilet Transfer (QC): 2 Assessment/Plan Assessment and Plan Assess & Plan/Chief Complaint Assessment: Post Covid with deconditioning s/p severe sepsis Diarrhea Sacral decubitus ulcer Hypokalemia Anemia previous transfusion Anxiety and Depression Fernandez catheter 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 Ongoing nausea improved Scopolamine patch Plan: IV abx Wound vac PT OT Depression meds OAC 04/07/2021: Wound VAC Out of bed 04/08/2021: Out of bed Wound VAC 04/09/2021: Supportive care Dramatic improvement already 04/10/2021: Supportive care Fernandez catheter required although it is an infection risk 04/11/2021: Supportive care Wound VAC appreciated 04/12/2021: Scopolamine patch Wound VAC 04/13/21: Scop patch Monitor pain 04/14/2021: Supportive care Wound VAC 04/14/2021: Wound VAC Fecal incontinence management 04/15/2021: Wound VAC management Continue depression treatment 04/16/2021: Supportive care Change wound VAC 04/17/2021: Appreciate wound care Cefepime 04/18/2021: Continue aggressive PT Wound VAC 04/19/2021: Supportive care Hold potassium to see if that helps with nausea 04/20/2021: Supportive care Children will visit tomorrow 04/21/2021: Supportive care Family visiting has helped her morale (1) Post covid-19 condition, unspecified Status: Chronic (2) Sacral decubitus ulcer, stage IV Status: Chronic (3) Severe sepsis Status: Acute (4) UTI (urinary tract infection) TERRA EDWARDS DO Apr 21, 2021 09:22
[2021-04-21] MEDS: COLLAGENASE 30 GM (SANTYL) TUBE TP SCH ×2 (09:30→20:09)
[2021-04-21] MEDS: MICONAZOLE 2% POWDER (DESENEX AF) 90 GM TOP SCH ×2 (09:30→20:09)
[2021-04-21] MEDS: NYSTATIN CREAM (MYCOSTATIN) 30 GM TUBE TP SCH ×3 (09:30→20:09)
[2021-04-21] MEDS: polyethylene glycoL POWDER 17 GM (MIRALAX) PACK PO SCH ×2 (09:30→20:07)
--- NOTE | 2021-04-21 10:19 | Physical Therapy Daily Note ---
PT Daily Note-Current Subjective Patient in bed pre tx, agrees to PT, has no complaints of pain at rest. Nurse would like to see a stand pivot transfer so she can see if she can do it for a toilet transfer safely. Nurse assists with dressing. Appearance Patient in post tx with nurse call, phone, tray, all needs met. Mental Status Patient Orientation: Normal For Age Attachments: Fernandez Catheter wound vac Transfers SCALE: Activities may be completed with or without assistive devices. 3-Sxvlcgeplu-lvklzsh completes the activity by him/herself with no assistance from a helper. 5-Set-up or Clean-up Assistance-helper sets up or cleans up; patient completes activity. [place] assists only prior to or following the activity. 4-Supervision or Touching Assistance-helper provides verbal cues and/or touching/steadying and/or contact guard assistance as patient completes activity. Assistance may be provided throughout the activity or intermittently. 3-Partial/Moderate Assistance-helper does LESS THAN HALF the effort. [place] lifts, holds or supports trunk or limbs, but provides less than half the effort. 2-Substantial/Maximal Assistance-helper does MORE THAN HALF the effort. [place] lifts or holds trunk or limbs and provides more than half the effort. 9-Qqlttaeli-fvvfxu does ALL the effort. Patient does none of the effort to complete the activity. Or, the assistance of 2 or more helpers is required for the patient to complete the activity. If activity was not attempted, code reason: 7-Patient Refused. 9-Not Applicable-not attempted and the patient did not perform the activity before the current illness, exacerbation or injury. 10-Not Attempted due to Environmental Limitations-(lack of equipment, weather restraints, etc.). 88-Not Attempted due to Medical Conditions or Safety Concerns. Roll Left & Right (QC): 6 Lying to Sitting/Side of Bed(Q: 4 Sit to Stand (QC): 3 Chair/Cus-ne-Vtuql Xfer(QC): 3 Patient is able to pull on her pants on her own in bed and then sit on the side of the bed with SBA. Patient stands with min/mod assist and performs a stand pivot transfer to . Careful consideration of her left plantarlfexion contracture during transfer. Weight Bearing Right Lower Extremity: Right Full Weight Bearing Left Lower Extremity: Left Full Weight Bearing Patient is cleared medically to bear weight through bilateral LEs, however due to prolonged illness and bed rest, patients LE's very weak and plantarflexion contractures bilaterally Treatments bed mobility and transfers, dressing, nursing education Assessment Current Status: Fair Progress improving transfers PT Short Term Goals Short Term Goals Time Frame: Apr 20, 2021 Roll Left & Right: 4 Sit to lyin Lying to sitting on side of be: 4 Sit to stand: 3 Chair/wnt-da-twago transfer: 3 Toilet transfer: 3 Car transfer: 3 Walk 10 feet: 2 Walk 50 feet with two turns: 1 Walk 150 feet: 1 Does pt use a wc or scooter: Yes Wheel 50ft w/2 turns: 5 Wheel 150 feet: 5 Type: Manual PT Intermediate Goals Lens Finisher Goals PT Intermediate Goals Time Frame: May 18, 2021 Roll Left & Right (QC): 6 Sit to Lying (QC): 6 Lying-Sitting on Side/Bed(QC): 6 Sit to Stand (QC): 4 Chair/His-ho-Xrxns Xfer(QC): 4 Toilet Transfer (QC): 4 Car Transfer (QC): 4 Does the Patient Walk: Yes Walk 10 feet (QC): 3 Walk 50ft with 2 Turns (QC): 3 Walk 150 ft (QC): 3 Walking 10ft on Uneven Surface: 3 1 Step (curb) (QC): 2 4 Steps (QC): 2 12 Steps (QC): 88 Picking up an Object (QC): 3 Does the Pt use WC or Scooter?: Yes Wheel 50 feet with 2 turns (QC: 6 Type: Manual Wheel 150 feet: 6 Type: Manual (6) PT Plan Problem List Problem List: Activity Tolerance, Functional Strength, Safety, Balance, Gait, Transfer, Bed Mobility, ROM Treatment/Plan Treatment Plan: Continue Plan of Care Treatment Plan: Bed Mobility, Education, Functional Activity John Paul, Functional Strength, Group Therapy, Gait, Safety, Therapeutic Exercise, Transfers Treatment Duration: May 18, 2021 Frequency: At least 5 of 7 days/Wk (IRF) Estimated Hrs Per Day: 1.5 hours per day Patient and/or Family Agrees t: Yes Safety Risks/Education Patient Education: Transfer Techniques, Correct Positioning, Safety Issues Teaching Recipient: Patient (and nurse) Teaching Methods: Demonstration, Discussion Response to Teaching: Reinforcement Needed Time/GCodes Time In: 0972 Time Out: 0901 Total Billed Treatment Time: 11 Total Billed Treatment 1 visit FA MAURO MEZA PT Apr 21, 2021 10:19
[2021-04-21 20:45] VITALS: BP 98/52
[2021-04-21] MEDS: MELATONIN 10 MG TABLET PO SCH (21:30)
[2021-04-21] MEDS: TOLTERODINE LA 4 MG (DETROL) CAP PO SCH (21:31)
[2021-04-22] MEDS: CEFEPIME INJECTION 2,000 MG in NS (IVPB) 50 ML IV SCH ×3 (06:04→21:07)
[2021-04-22] MEDS: CATHETER FLUSH 10 ML SYR IV SCH ×3 (06:04→21:07)
[2021-04-22] MEDS: ONDANSETRON 4 MG/2 ML (SDV) Z0FRAN IVP PRN (06:04)
[2021-04-22] MEDS: VENlafaxine XR 75 MG (EFFEXOR XR) CAP PO SCH (06:53)
[2021-04-22] MEDS: MULTIVIT W/MINERALS TAB (THERAGRAN M) PO SCH (06:53)
[2021-04-22 07:30] VITALS: BP 100/58
[2021-04-22] MEDS: COLLAGENASE 30 GM (SANTYL) TUBE TP SCH ×2 (09:00→19:36)
[2021-04-22] MEDS: ATENOLOL 25 MG (TENORMIN) TAB PO SCH ×2 (09:00→21:08)
[2021-04-22] MEDS: MICONAZOLE 2% POWDER (DESENEX AF) 90 GM TOP SCH ×2 (09:00→19:36)
[2021-04-22] MEDS: NYSTATIN CREAM (MYCOSTATIN) 30 GM TUBE TP SCH ×3 (09:00→19:36)
[2021-04-22] MEDS: polyethylene glycoL POWDER 17 GM (MIRALAX) PACK PO SCH ×2 (09:00→19:35)
[2021-04-22] MEDS: LACTOBACILLUS ACIDOPHILUS (PROBIOTIC) CAPSULE PO SCH ×3 (09:01→17:55)
[2021-04-22] MEDS: OXYBUTYNIN (DITROPAN) 5 MG TAB PO SCH ×3 (09:01→21:09)
[2021-04-22] MEDS: FERROUS SULF 325 MG (IRON) TAB PO SCH (09:01)
[2021-04-22] MEDS: APIXABAN 5 MG (ELIQUIS) TABLET PO SCH ×2 (09:01→21:09)
[2021-04-22] MEDS: MESALAMINE 250 MG (PENTASA) CAP PO SCH ×3 (09:02→21:08)
[2021-04-22] MEDS: HYDROcodone/APAP 7.5 MG/325 MG (LORTAB, LORCET PLUS) TABLET PO SCH ×4 (09:02→21:08)
[2021-04-22] MEDS: SERTRALINE 50 MG (ZOLOFT) TABLET PO SCH (09:02)
--- NOTE | 2021-04-22 12:35 | PM&R Progress Note ---
Subjective HPI/CC On Admission Date Seen by Provider: Apr 22, 2021 Time Seen by Provider: 12:45 Subjective/Events-last exam 04/22/2021: Patient doing well Bowels move this morning with fecal incontinence Increase fluid intake is encouraged 04/21/21: Patient doing well Family visited with children Standing and pivoting very well 04/20/2021: Pt doing really well Wound vac was changed IV Zofran given every morning Changed her Scopolamine patch Children will visit tomorrow 04/19/2021: Pt stood and walked two steps today Wedge in left foot in shoe for foot drop has been helpful Zofran IV will be given every morning 04/18/2021: Pt doing well Catheter will be kept until decubitus ulcer heals BNO suppositories will be ordered for bladder spasms IV iron infusions completed Left foot drop is improving 04/17/2021: Pt doing much better Foot drop will be worked on today Getting up and around today Checked meds and labs Nausea improved 04/16/2021: Pt having some nausea Wound vac came off yesterday, replacing that today IV Zofran given for nausea Garett will restart the wound vac Consulting urology for bladder spasms 04/15/2021: Patient doing very well Visitors today No pain is reported Wound VAC in place Fecal incontinence continues 04/14/2021: Patient doing very well today Stood with a walker today at bedside No pain is reported Wound VAC in place 04/13/21: Patient doing well Scop patch resolving the nausea Pain controlled Wound vac changed No issues 04/12/2021: Scopolamine patch working well Patient doing well Wound VAC maintained Check meds and labs No pain Eating and drinking well Scopolamine patch working well 04/11/2021: Patient doing well Fecal incontinence again last night Participating in therapy Wound VAC changed 04/10/2021: Patient doing well No major concerns PICC line dysfunction will be assessed Foot drop will be addressed with AFO Incontinent of bowel last night 04/09/2021: Patient doing really well Labs stable Hemoglobin 8.6 Wound VAC working well Getting ready to go the parallel bars with physical therapy 04/08/2021: Patient doing very well Was up 4 times yesterday out of bed Loose stools only has occurred once May need to use Questran as needed Check meds labs 04/07/2021: Patient doing very well We will get up in chair for lunch Hemoglobin 8.6 Bowels are moving now so on verge of constipation will change Questran to as needed no pain is reported Wound VAC tolerated well Review of Systems General: Fatigue, Malaise Objective Exam Vital Signs Vital Signs Date Time Temp Pulse Resp B/P (MAP) Pulse Ox O2 Delivery O2 Flow Rate FiO2 04/22/21 10:19 Room Air 0.00 04/22/21 07:30 36.0 97 20 100/58 (72) 99 Capillary Refill : General Appearance: No Apparent Distress, WD/WN, Chronically ill, Other (pale, chronically ill) HEENT: PERRL/EOMI, Normal ENT Inspection, Pharynx Normal Neck: Full Range of Motion, Normal Inspection, Non Tender, Supple, Carotid Bruit Respiratory: Chest Non Tender, Lungs Clear, Normal Breath Sounds, No Accessory Muscle Use, No Respiratory Distress Cardiovascular: Regular Rate, Rhythm, No Edema, No Gallop, No JVD, No Murmur, Normal Peripheral Pulses Gastrointestinal: Normal Bowel Sounds, No Organomegaly, No Pulsatile Mass, Non Tender, Soft Back: Normal Inspection, No CVA Tenderness, No Vertebral Tenderness Extremity: Normal Capillary Refill, Normal Inspection, Normal Range of Motion, Non Tender, No Calf Tenderness, No Pedal Edema Neurologic/Psychiatric: Alert, Oriented x3, No Motor/Sensory Deficits, guardian family member II- XII Norm as Tested, Depressed Affect, Motor Weakness (3/5 upper 1/5 lower) Skin: Normal Color, Warm/Dry, Other (coccyx decubitus ulcer with wound vac) Lymphatic: No Adenopathy Results/Procedures Lab Patient resulted labs reviewed. FIM Transfers Therapy Code Descriptions/Definitions Functional [place] Measure: 0=Not Assessed/NA 4=Minimal Assistance 1=Total Assistance 5=Supervision or Setup 2=Maximal Assistance 6=Modified [place] 3=Moderate Assistance 7=Complete IndependenceSCALE: Activities may be completed with or without assistive devices. 9-Gqqaksatkw-hupppkn completes the activity by him/herself with no assistance from a helper. 5-Set-up or Clean-up Assistance-helper sets up or cleans up; patient completes activity. [place] assists only prior to or following the activity. 4-Supervision or Touching Assistance-helper provides verbal cues and/or touching/steadying and/or contact guard assistance as patient completes activity. Assistance may be provided throughout the activity or intermittently. 3-Partial/Moderate Assistance-helper does LESS THAN HALF the effort. [place] lifts, holds or supports trunk or limbs, but provides less than half the effort. 2-Substantial/Maximal Assistance-helper does MORE THAN HALF the effort. [place] lifts or holds trunk or limbs and provides more than half the effort. 3-Vwffgurxa-oxgodl does ALL the effort. Patient does none of the effort to complete the activity. Or, the assistance of 2 or more helpers is required for the patient to complete the activity. If activity was not attempted, code reason: 7-Patient Refused. 9-Not Applicable-not attempted and the patient did not perform the activity before the current illness, exacerbation or injury. 10-Not Attempted due to Environmental Limitations-(lack of equipment, weather restraints, etc.). 88-Not Attempted due to Medical Conditions or Safety Concerns. Roll Left to Right (QC): 6 Sit to Lying (QC): 6 Sit to Stand (QC): 3 Chair/Ymg-li-Aqknr Xfer(QC): 3 Car Transfer (QC): 1 Gait Training Does the Patient Walk?: No and Walking Goal IS indicated Distance: 3'x5 Walk 10 feet (QC): 88 Walk 50 ft with 2 Turns(QC): 88 Walk 150 ft (QC): 88 Walking 10ft/uneven surface-QC: 88 Gait Persons Needed: 1 Gait Assistive Device: Parallel Bars Wheelchair Training Does the Pt Use a Wheelchair?: Yes Distance: 150 Wheel 50 ft with 2 turns (QC): 4 Wheel 150 ft (QC): 3 Type of Wheelchair: Manual Stair Training #of Steps: 0 1 Step (curb) (QC): 88 4 Steps (QC): 88 12 Steps (QC): 88 Balance Picking up an Object (QC): 88 ADL-Treatment Eating (QC): 6 Oral Hygiene (QC): 6 Shower/Bathe Self (QC): 3 Upper Body Dressing (QC): 5 Lower Body Dressing (QC): 2 On/Off Footwear (QC): 2 Toileting Hygiene (QC): 1 Toilet Transfer (QC): 2 Assessment/Plan Assessment and Plan Assess & Plan/Chief Complaint Assessment: Post Covid with deconditioning s/p severe sepsis Diarrhea Sacral decubitus ulcer Hypokalemia Anemia previous transfusion Anxiety and Depression Fernandez catheter 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 Ongoing nausea improved Scopolamine patch Plan: IV abx Wound vac PT OT Depression meds OAC 04/07/2021: Wound VAC Out of bed 04/08/2021: Out of bed Wound VAC 04/09/2021: Supportive care Dramatic improvement already 04/10/2021: Supportive care Fernandez catheter required although it is an infection risk 04/11/2021: Supportive care Wound VAC appreciated 04/12/2021: Scopolamine patch Wound VAC 04/13/21: Scop patch Monitor pain 04/14/2021: Supportive care Wound VAC 04/14/2021: Wound VAC Fecal incontinence management 04/15/2021: Wound VAC management Continue depression treatment 04/16/2021: Supportive care Change wound VAC 04/17/2021: Appreciate wound care Cefepime 04/18/2021: Continue aggressive PT Wound VAC 04/19/2021: Supportive care Hold potassium to see if that helps with nausea 04/20/2021: Supportive care Children will visit tomorrow 04/21/2021: Supportive care Family visiting has helped her morale 05/02/2021: Supportive care Wound VAC management (1) Post covid-19 condition, unspecified Status: Chronic (2) Sacral decubitus ulcer, stage IV Status: Chronic (3) Severe sepsis Status: Acute (4) UTI (urinary tract infection) TERRA EDWARDS DO Apr 22, 2021 12:35
[2021-04-22 20:00] VITALS: BP 104/66
[2021-04-22] MEDS: MELATONIN 10 MG TABLET PO SCH (21:08)
[2021-04-22] MEDS: TOLTERODINE LA 4 MG (DETROL) CAP PO SCH (21:08)
[2021-04-23] MEDS: CEFEPIME INJECTION 2,000 MG in NS (IVPB) 50 ML IV SCH ×3 (06:27→21:38)
[2021-04-23] MEDS: ONDANSETRON 4 MG/2 ML (SDV) Z0FRAN IVP PRN ×2 (06:27→13:58)
[2021-04-23] MEDS: CATHETER FLUSH 10 ML SYR IV SCH ×3 (06:28→21:39)
[2021-04-23 06:41] LABS: BASOPHILS # (AUTO) 0.1 10^3/uL (0.0-0.1); BASOPHILS % (AUTO) 1 % (0-10); EOSINOPHILS # (AUTO) 0.3 10^3/uL (0.0-0.3); EOSINOPHILS % (AUTO) 5 % (0-10); HEMATOCRIT 33 % (35-52); LYMPHOCYTES # (AUTO) 2.3 10^3/uL (1.0-4.0); LYMPHOCYTES % (AUTO) 35 % (12-44); MEAN CORPUSCULAR HEMOGLOBIN 31 pg (25-34); MEAN CORPUSCULAR HGB CONC 31 g/dL (32-36); MEAN CORPUSCULAR VOLUME 101 fL (80-99); MEAN PLATELET VOLUME 9.4 fL (9.0-12.2); MONOCYTES # (AUTO) 0.7 10^3/uL (0.0-1.0); MONOCYTES % (AUTO) 11 % (0-12); NEUTROPHILS # (AUTO) 3.1 10^3/uL (1.8-7.8); NEUTROPHILS % (AUTO) 47 % (42-75); PLATELET COUNT 324 10^3/uL (130-400); WHITE BLOOD COUNT 6.5 10^3/uL (4.3-11.0)
[2021-04-23 06:52] LABS: ALBUMIN 2.4 GM/DL (3.2-4.5)
[2021-04-23 06:53] LABS: POTASSIUM 3.4 MMOL/L (3.6-5.0)
[2021-04-23 06:55] LABS: TOTAL PROTEIN 4.4 GM/DL (6.4-8.2)
[2021-04-23 06:57] LABS: BILIRUBIN,TOTAL 0.3 MG/DL (0.1-1.0)
[2021-04-23 06:59] LABS: CREATININE SERUM 0.75 MG/DL (0.60-1.30)
[2021-04-23] MEDS: MULTIVIT W/MINERALS TAB (THERAGRAN M) PO SCH (07:11)
[2021-04-23] MEDS: VENlafaxine XR 75 MG (EFFEXOR XR) CAP PO SCH (07:11)
[2021-04-23 08:00] VITALS: BP 110/59
--- NOTE | 2021-04-23 09:00 | Physical Therapy Daily Note ---
PT Daily Note-Current Subjective Patient in bed pre tx, agrees to PT, has no complaints of pain. Will be co- treating with OT due to poor patient mobility, strength, endurance, severe debility, coordinate UE and LE during activity, safety and reduce risk of falls. Appearance Patient in therapy gym post tx, will continue for a bit with OT. Mental Status Patient Orientation: Person, Place, Situation, Normal For Age Attachments: Fernandez Catheter wound vac Transfers SCALE: Activities may be completed with or without assistive devices. 9-Zqknzvcobh-ggvcqju completes the activity by him/herself with no assistance from a helper. 5-Set-up or Clean-up Assistance-helper sets up or cleans up; patient completes activity. [place] assists only prior to or following the activity. 4-Supervision or Touching Assistance-helper provides verbal cues and/or touching/steadying and/or contact guard assistance as patient completes activity. Assistance may be provided throughout the activity or intermittently. 3-Partial/Moderate Assistance-helper does LESS THAN HALF the effort. [place] lifts, holds or supports trunk or limbs, but provides less than half the effort. 2-Substantial/Maximal Assistance-helper does MORE THAN HALF the effort. [place] lifts or holds trunk or limbs and provides more than half the effort. 9-Zdrpjrnqw-rqtypk does ALL the effort. Patient does none of the effort to complete the activity. Or, the assistance of 2 or more helpers is required for the patient to complete the activity. If activity was not attempted, code reason: 7-Patient Refused. 9-Not Applicable-not attempted and the patient did not perform the activity before the current illness, exacerbation or injury. 10-Not Attempted due to Environmental Limitations-(lack of equipment, weather restraints, etc.). 88-Not Attempted due to Medical Conditions or Safety Concerns. Roll Left & Right (QC): 6 Lying to Sitting/Side of Bed(Q: 4 Sit to Stand (QC): 3 Chair/Ype-vx-Ojxqs Xfer(QC): 3 Patient dressed in and on the side of the bed and then min assist stand and pivot to WC Weight Bearing Right Lower Extremity: Right Full Weight Bearing Left Lower Extremity: Left Full Weight Bearing Patient is cleared medically to bear weight through bilateral LEs, however due to prolonged illness and bed rest, patients LE's very weak and plantarflexion contractures bilaterally Gait Training Distance: 4'x3 Gait Assistive Device: Parallel Bars min assist to stand and then block left ankle with foot to keep it from rolling, left shoe has a heel lift due to left ankle contracture Wheelchair Training Does the Pt Use a Wheelchair?: Yes Wheel 50 ft with 2 turns (QC): 4 Type of Wheelchair: Manual 120' Exercises standing to stretch left ankle, and LAQ alternating for 5 min Treatments PT performed bed mobility and transfers, ambulation, WC mobility, stretching and strengthening, positioning and safety during dressing, OT performed dressing, UE positioning and safety during activity Assessment Current Status: Fair Progress slow progress but improving transfers PT Short Term Goals Short Term Goals Time Frame: Apr 20, 2021 Roll Left & Right: 4 Sit to lyin Lying to sitting on side of be: 4 Sit to stand: 3 Chair/fyz-wk-sbsot transfer: 3 Toilet transfer: 3 Car transfer: 3 Walk 10 feet: 2 Walk 50 feet with two turns: 1 Walk 150 feet: 1 Does pt use a wc or scooter: Yes Wheel 50ft w/2 turns: 5 Wheel 150 feet: 5 Type: Manual PT Gasket Inspector Goals Fdc Goals PT Fdc Goals Time Frame: May 18, 2021 Roll Left & Right (QC): 6 Sit to Lying (QC): 6 Lying-Sitting on Side/Bed(QC): 6 Sit to Stand (QC): 4 Chair/Izj-km-Vdofr Xfer(QC): 4 Toilet Transfer (QC): 4 Car Transfer (QC): 4 Does the Patient Walk: Yes Walk 10 feet (QC): 3 Walk 50ft with 2 Turns (QC): 3 Walk 150 ft (QC): 3 Walking 10ft on Uneven Surface: 3 1 Step (curb) (QC): 2 4 Steps (QC): 2 12 Steps (QC): 88 Picking up an Object (QC): 3 Does the Pt use WC or Scooter?: Yes Wheel 50 feet with 2 turns (QC: 6 Type: Manual Wheel 150 feet: 6 Type: Manual (6) PT Plan Problem List Problem List: Activity Tolerance, Functional Strength, Safety, Balance, Gait, Transfer, Bed Mobility, ROM Treatment/Plan Treatment Plan: Continue Plan of Care Treatment Plan: Bed Mobility, Education, Functional Activity John Paul, Functional Strength, Group Therapy, Gait, Safety, Therapeutic Exercise, Transfers Treatment Duration: May 18, 2021 Frequency: At least 5 of 7 days/Wk (IRF) Estimated Hrs Per Day: 1.5 hours per day Patient and/or Family Agrees t: Yes Safety Risks/Education Patient Education: Gait Training, Transfer Techniques, Correct Positioning, W/C Management, Safety Issues Teaching Recipient: Patient Teaching Methods: Demonstration, Discussion Response to Teaching: Reinforcement Needed Time/GCodes Time In: 0800 Time Out: 0900 Total Billed Treatment Time: 60 Total Billed Treatment 1 visit EX 10' FA 50' MAURO MOORE PT Apr 23, 2021 09:00
--- NOTE | 2021-04-23 09:17 | PM&R Progress Note ---
Subjective HPI/CC On Admission Date Seen by Provider: Apr 23, 2021 Time Seen by Provider: 09:20 Subjective/Events-last exam 04/23/21: Pt doing well Wound vac will be changed today Fecal incontinence noted Bowel routine will be implemented 04/22/2021: Patient doing well Bowels move this morning with fecal incontinence Increase fluid intake is encouraged 04/21/21: Patient doing well Family visited with children Standing and pivoting very well 04/20/2021: Pt doing really well Wound vac was changed IV Zofran given every morning Changed her Scopolamine patch Children will visit tomorrow 04/19/2021: Pt stood and walked two steps today Wedge in left foot in shoe for foot drop has been helpful Zofran IV will be given every morning 04/18/2021: Pt doing well Catheter will be kept until decubitus ulcer heals BNO suppositories will be ordered for bladder spasms IV iron infusions completed Left foot drop is improving 04/17/2021: Pt doing much better Foot drop will be worked on today Getting up and around today Checked meds and labs Nausea improved 04/16/2021: Pt having some nausea Wound vac came off yesterday, replacing that today IV Zofran given for nausea Garett will restart the wound vac Consulting urology for bladder spasms 04/15/2021: Patient doing very well Visitors today No pain is reported Wound VAC in place Fecal incontinence continues 04/14/2021: Patient doing very well today Stood with a walker today at bedside No pain is reported Wound VAC in place 04/13/21: Patient doing well Scop patch resolving the nausea Pain controlled Wound vac changed No issues 04/12/2021: Scopolamine patch working well Patient doing well Wound VAC maintained Check meds and labs No pain Eating and drinking well Scopolamine patch working well 04/11/2021: Patient doing well Fecal incontinence again last night Participating in therapy Wound VAC changed 04/10/2021: Patient doing well No major concerns PICC line dysfunction will be assessed Foot drop will be addressed with AFO Incontinent of bowel last night 04/09/2021: Patient doing really well Labs stable Hemoglobin 8.6 Wound VAC working well Getting ready to go the parallel bars with physical therapy 04/08/2021: Patient doing very well Was up 4 times yesterday out of bed Loose stools only has occurred once May need to use Questran as needed Check meds labs 04/07/2021: Patient doing very well We will get up in chair for lunch Hemoglobin 8.6 Bowels are moving now so on verge of constipation will change Questran to as needed no pain is reported Wound VAC tolerated well Review of Systems General: Fatigue, Malaise Objective Exam Vital Signs Vital Signs Date Time Temp Pulse Resp B/P (MAP) Pulse Ox O2 Delivery O2 Flow Rate FiO2 04/23/21 21:00 98 Room Air 04/23/21 19:37 36.3 84 16 91/59 (70) 04/23/21 06:47 0.00 Capillary Refill : General Appearance: No Apparent Distress, WD/WN, Chronically ill, Other (pale, chronically ill) HEENT: PERRL/EOMI, Normal ENT Inspection, Pharynx Normal Neck: Full Range of Motion, Normal Inspection, Non Tender, Supple, Carotid Bruit Respiratory: Chest Non Tender, Lungs Clear, Normal Breath Sounds, No Accessory Muscle Use, No Respiratory Distress Cardiovascular: Regular Rate, Rhythm, No Edema, No Gallop, No JVD, No Murmur, Normal Peripheral Pulses Gastrointestinal: Normal Bowel Sounds, No Organomegaly, No Pulsatile Mass, Non Tender, Soft Back: Normal Inspection, No CVA Tenderness, No Vertebral Tenderness Extremity: Normal Capillary Refill, Normal Inspection, Normal Range of Motion, Non Tender, No Calf Tenderness, No Pedal Edema Neurologic/Psychiatric: Alert, Oriented x3, No Motor/Sensory Deficits, consumer product advisor II- XII Norm as Tested, Depressed Affect, Motor Weakness (3/5 upper 1/5 lower) Skin: Normal Color, Warm/Dry, Other (coccyx decubitus ulcer with wound vac) Lymphatic: No Adenopathy Results/Procedures Lab Laboratory Tests 04/23/21 06:30 Patient resulted labs reviewed. FIM Transfers Therapy Code Descriptions/Definitions Functional [place] Measure: 0=Not Assessed/NA 4=Minimal Assistance 1=Total Assistance 5=Supervision or Setup 2=Maximal Assistance 6=Modified [place] 3=Moderate Assistance 7=Complete IndependenceSCALE: Activities may be completed with or without assistive devices. 1-Geripzbpdn-vdnnsxe completes the activity by him/herself with no assistance from a helper. 5-Set-up or Clean-up Assistance-helper sets up or cleans up; patient completes activity. [place] assists only prior to or following the activity. 4-Supervision or Touching Assistance-helper provides verbal cues and/or touching/steadying and/or contact guard assistance as patient completes activity. Assistance may be provided throughout the activity or intermittently. 3-Partial/Moderate Assistance-helper does LESS THAN HALF the effort. [place] lifts, holds or supports trunk or limbs, but provides less than half the effort. 2-Substantial/Maximal Assistance-helper does MORE THAN HALF the effort. [place] lifts or holds trunk or limbs and provides more than half the effort. 2-Bsdfwrjcq-bbseyj does ALL the effort. Patient does none of the effort to complete the activity. Or, the assistance of 2 or more helpers is required for the patient to complete the activity. If activity was not attempted, code reason: 7-Patient Refused. 9-Not Applicable-not attempted and the patient did not perform the activity before the current illness, exacerbation or injury. 10-Not Attempted due to Environmental Limitations-(lack of equipment, weather restraints, etc.). 88-Not Attempted due to Medical Conditions or Safety Concerns. Roll Left to Right (QC): 6 Sit to Lying (QC): 6 Sit to Stand (QC): 3 Chair/[place] Xfer(QC): 3 Car Transfer (QC): 1 Gait Training Does the Patient Walk?: No and Walking Goal IS indicated Distance: 4'x3 Walk 10 feet (QC): 88 Walk 50 ft with 2 Turns(QC): 88 Walk 150 ft (QC): 88 Walking 10ft/uneven surface-QC: 88 Gait Persons Needed: 1 Gait Assistive Device: Parallel Bars Wheelchair Training Does the Pt Use a Wheelchair?: Yes Distance: 150 Wheel 50 ft with 2 turns (QC): 4 Wheel 150 ft (QC): 3 Type of Wheelchair: Manual Stair Training #of Steps: 0 1 Step (curb) (QC): 88 4 Steps (QC): 88 12 Steps (QC): 88 Balance Picking up an Object (QC): 88 ADL-Treatment Eating (QC): 6 Oral Hygiene (QC): 6 Shower/Bathe Self (QC): 3 Upper Body Dressing (QC): 5 Lower Body Dressing (QC): 2 On/Off Footwear (QC): 2 Toileting Hygiene (QC): 1 Toilet Transfer (QC): 2 Assessment/Plan Assessment and Plan Assess & Plan/Chief Complaint Assessment: Post Covid with deconditioning s/p severe sepsis Diarrhea Sacral decubitus ulcer Hypokalemia Anemia previous transfusion Anxiety and Depression Fernandez catheter 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 Ongoing nausea improved Scopolamine patch Plan: IV abx Wound vac PT OT Depression meds OAC 04/07/2021: Wound VAC Out of bed 04/08/2021: Out of bed Wound VAC 04/09/2021: Supportive care Dramatic improvement already 04/10/2021: Supportive care Fernandez catheter required although it is an infection risk 04/11/2021: Supportive care Wound VAC appreciated 04/12/2021: Scopolamine patch Wound VAC 04/13/21: Scop patch Monitor pain 04/14/2021: Supportive care Wound VAC 04/14/2021: Wound VAC Fecal incontinence management 04/15/2021: Wound VAC management Continue depression treatment 04/16/2021: Supportive care Change wound VAC 04/17/2021: Appreciate wound care Cefepime 04/18/2021: Continue aggressive PT Wound VAC 04/19/2021: Supportive care Hold potassium to see if that helps with nausea 04/20/2021: Supportive care Children will visit tomorrow 04/21/2021: Supportive care Family visiting has helped her morale 04/22/2021: Supportive care Wound VAC management 04/23/2021: Supportive care Wound VAC management (1) Post covid-19 condition, unspecified Status: Chronic (2) Sacral decubitus ulcer, stage IV Status: Chronic (3) Severe sepsis Status: Acute (4) UTI (urinary tract infection) TERRA EDWARDS DO Apr 23, 2021 09:16
--- NOTE | 2021-04-23 09:17 | Occupational Ther Daily Note ---
OT Current Status-Daily Note Subjective Extra time to rouse this date, slow initiation. Agreeable to co-treat as pt requires 2 skilled clinicians due to weakness, decreased activity tolerance, high fall risk, as well as need for addressing multiple areas with 2 different professionals. Appearance Returned to supine in bed, all needs within reach. Mental Status/Objective Patient Orientation: Person, Place, Time, Situation Attachments: Drains, Fernandez Catheter, IV ADL-Treatment Therapy Code Descriptions/Definitions Functional [place] Measure: 0=Not Assessed/NA 4=Minimal Assistance 1=Total Assistance 5=Supervision or Setup 2=Maximal Assistance 6=Modified [place] 3=Moderate Assistance 7=Complete IndependenceSCALE: Activities may be completed with or without assistive devices. 0-Ajymhedkpz-mvnpvyv completes the activity by him/herself with no assistance from a helper. 5-Set-up or Clean-up Assistance-helper sets up or cleans up; patient completes activity. [place] assists only prior to or following the activity. 4-Supervision or Touching Assistance-helper provides verbal cues and/or touching/steadying and/or contact guard assistance as patient completes activi ty. Assistance may be provided throughout the activity or intermittently. 3-Partial/Moderate Assistance-helper does LESS THAN HALF the effort. [place] lifts, holds or supports trunk or limbs, but provides less than half the effort. 2-Substantial/Maximal Assistance-helper does MORE THAN HALF the effort. [place] lifts or holds trunk or limbs and provides more than half the effort. 0-Mbnvcuvkr-pmynaq does ALL the effort. Patient does none of the effort to complete the activity. Or, the assistance of 2 or more helpers is required for the patient to complete the activity. If activity was not attempted, code reason: 7-Patient Refused. 9-Not Applicable-not attempted and the patient did not perform the activity before the current illness, exacerbation or injury. 10-Not Attempted due to Environmental Limitations-(lack of equipment, weather restraints, etc.). 88-Not Attempted due to Medical Conditions or Safety Concerns. Eating (QC): 6 Upper Body Dressing (QC): 5 Lower Body Dressing (QC): 3 On/Off Footwear: 3 Dressing tasks performed sitting EOB. Extra time to complete secondary to slow initiation and letting stomach "settle" after breakfast. Continues to need min a to thread LLE secondary to plantar flexion contracture and difficulty lifting foot/toes high enough off floor. Extra time to problem solve preferred placement of special education instructor during task. Pt returns to supine to perform clothing management. Extra time but no assist required. Stand pivot from bed>w/c with min-mod a. Post activities, pt returned to bed with slide board transfer, CGA. Other Treatment Pt stood at parallel bars min-mod a. Multiple standing bouts with goal to increase standing tolerance, balance, posture, and stretching of L ankle. Once standing, cues needed for anterior weight shift and upright posture. Pt able to take 4-5 small steps with mod A. Ankle instability notable with physical therapist assisting with stabilizing during gait. Pt has tendency to sit quickly when fatigued and requires w/c behind her at all times. Pt unable to tolerate standing for >1 minute. During sitting breaks, pt completed w/c pushups x5 with goal to get buttocks completely off w/c seat. Education OT Patient Education: Correct positioning, Exercise program, Modified ADL techniques, Progress toward Goal/Update tx plan, Purpose of tx/functional activities, Safety issues, Transfer techniques, Use of adapted equipment, W/C management, Other (Discussed having spouse come in for family training) Teaching Recipient: Patient Teaching Methods: Demonstration, Discussion Response to Teaching: Verbalize Understanding, Return Demonstration OT Short Term Goals Short Term Goals Time Frame: Apr 20, 2021 Eatin Oral hygiene: 5 Toileting hygiene: 2 Shower/bathe self: 2 Upper body dressin Lower body dressin Putting on/taking off footwear: 2 OT Skilled Nursing Goals Skilled Nursing Goals Time Frame: May 04, 2021 Eating (QC): 6 Oral Hygiene (QC): 5 Toileting Hygiene (QC): 4 Shower/Bathe Self (QC): 4 Upper Body Dressing (QC): 5 Lower Body Dressing (QC): 4 On/Off Footwear (QC): 4 1=Demonstrate adherence to instructed precautions during ADL tasks. 2=Patient will verbalize/demonstrate understanding of assistive devices/modifications for ADL. 3=Patient will improve strength/tolerance for activity to enable patient to perform ADL's. OT Education/Plan Problem List/Assessment Assessment: Decreased Activ Tolerance, Decreased UE Strength, Impaired Funct Balance, Impaired I ADL's, Impaired Self-Care Skills, Restricted Funct UE ROM Discharge Recommendations Plan/Recommendations: Continue POC Treatment Plan/Plan of Care Treatment,Training & Education: Yes Patient would benefit from OT for education, treatment and training to promote independence in ADL's, mobility, safety and/or upper extremity function for ADL's. Plan of Care: ADL Retraining, Functional Mobility, Group Exercise/Act as Ind, UE Funct Exercise/Act, UE Neuromus Re-Ed/Coord, W/C Management Training Treatment Duration: May 04, 2021 Frequency: At least 5 of 7 days/Wk (IRF) Estimated Hrs Per Day: 1.5 hours per day Agreement: Yes Rehab Potential: Fair Time/GCodes Start Time: 07:45 Stop Time: 09:15 Total Time Billed (hr/min): 90 Billed Treatment Time 1 visit ADL x3 (40 min) FA x3 (50 min) co-treat for 60 min Latoya Becker OT Apr 23, 2021 09:17
[2021-04-23] MEDS: HYDROcodone/APAP 7.5 MG/325 MG (LORTAB, LORCET PLUS) TABLET PO SCH ×4 (10:01→21:33)
[2021-04-23] MEDS: SERTRALINE 50 MG (ZOLOFT) TABLET PO SCH (10:01)
[2021-04-23] MEDS: MESALAMINE 250 MG (PENTASA) CAP PO SCH ×3 (10:01→21:32)
[2021-04-23] MEDS: SCOPOLAMINE 1.5 MG (TRANSDERM-SCOP) PATCH TD SCH (10:02)
[2021-04-23] MEDS: LACTOBACILLUS ACIDOPHILUS (PROBIOTIC) CAPSULE PO SCH ×3 (10:02→17:09)
[2021-04-23] MEDS: FERROUS SULF 325 MG (IRON) TAB PO SCH (10:02)
[2021-04-23] MEDS: VITAMIN D2 1.25 MG (50,000 UNITS) CAP PO SCH (10:02)
[2021-04-23] MEDS: APIXABAN 5 MG (ELIQUIS) TABLET PO SCH ×2 (10:02→21:33)
[2021-04-23] MEDS: SCOPOLAMINE PATCH REMOVAL TP SCH (10:02)
[2021-04-23] MEDS: ATENOLOL 25 MG (TENORMIN) TAB PO SCH ×2 (10:02→21:34)
[2021-04-23] MEDS: OXYBUTYNIN (DITROPAN) 5 MG TAB PO SCH ×3 (10:03→21:33)
[2021-04-23] MEDS: polyethylene glycoL POWDER 17 GM (MIRALAX) PACK PO SCH ×2 (10:03→21:34)
[2021-04-23] MEDS: MICONAZOLE 2% POWDER (DESENEX AF) 90 GM TOP SCH ×2 (10:49→21:37)
[2021-04-23] MEDS: COLLAGENASE 30 GM (SANTYL) TUBE TP SCH ×2 (10:50→21:38)
[2021-04-23] MEDS: NYSTATIN CREAM (MYCOSTATIN) 30 GM TUBE TP SCH ×3 (10:50→21:38)
--- NOTE | 2021-04-23 14:20 | Physical Therapy Daily Note ---
PT Daily Note-Current Subjective Patient in bed pre tx, agrees to PT but is very nauseated, agrees to exercises in bed. Appearance Patient in bed post tx with nurse call, phone, tray, all needs met. Mental Status Patient Orientation: Normal For Age Attachments: Fernandez Catheter wound vac Transfers SCALE: Activities may be completed with or without assistive devices. 5-Swmrhudkwj-miawnxy completes the activity by him/herself with no assistance from a helper. 5-Set-up or Clean-up Assistance-helper sets up or cleans up; patient completes activity. [place] assists only prior to or following the activity. 4-Supervision or Touching Assistance-helper provides verbal cues and/or touching/steadying and/or contact guard assistance as patient completes activity. Assistance may be provided throughout the activity or intermittently. 3-Partial/Moderate Assistance-helper does LESS THAN HALF the effort. [place] lifts, holds or supports trunk or limbs, but provides less than half the effort. 2-Substantial/Maximal Assistance-helper does MORE THAN HALF the effort. [place] lifts or holds trunk or limbs and provides more than half the effort. 0-Nntzbkeem-ciwayz does ALL the effort. Patient does none of the effort to complete the activity. Or, the assistance of 2 or more helpers is required for the patient to complete the activity. If activity was not attempted, code reason: 7-Patient Refused. 9-Not Applicable-not attempted and the patient did not perform the activity before the current illness, exacerbation or injury. 10-Not Attempted due to Environmental Limitations-(lack of equipment, weather restraints, etc.). 88-Not Attempted due to Medical Conditions or Safety Concerns. Weight Bearing Right Lower Extremity: Right Full Weight Bearing Left Lower Extremity: Left Full Weight Bearing Patient is cleared medically to bear weight through bilateral LEs, however due to prolonged illness and bed rest, patients LE's very weak and plantarflexion contractures bilaterally Exercises Supine Ex: Ankle pumps, Quad Set, Glut sets, Heel Slides, Short Arc Quads, Straight leg raise, Hip abd/add Supine Reps: 20 Treatments LE strengthening Assessment Current Status: Poor Progress Patient needed many rest breaks due to nausea PT Short Term Goals Short Term Goals Time Frame: Apr 20, 2021 Roll Left & Right: 4 Sit to lyin Lying to sitting on side of be: 4 Sit to stand: 3 Chair/hwt-ja-xlbun transfer: 3 Toilet transfer: 3 Car transfer: 3 Walk 10 feet: 2 Walk 50 feet with two turns: 1 Walk 150 feet: 1 Does pt use a wc or scooter: Yes Wheel 50ft w/2 turns: 5 Wheel 150 feet: 5 Type: Manual PT Assembly Line Inspector Goals Usp Goals PT Usp Goals Time Frame: May 18, 2021 Roll Left & Right (QC): 6 Sit to Lying (QC): 6 Lying-Sitting on Side/Bed(QC): 6 Sit to Stand (QC): 4 Chair/Wty-rc-Ujpty Xfer(QC): 4 Toilet Transfer (QC): 4 Car Transfer (QC): 4 Does the Patient Walk: Yes Walk 10 feet (QC): 3 Walk 50ft with 2 Turns (QC): 3 Walk 150 ft (QC): 3 Walking 10ft on Uneven Surface: 3 1 Step (curb) (QC): 2 4 Steps (QC): 2 12 Steps (QC): 88 Picking up an Object (QC): 3 Does the Pt use WC or Scooter?: Yes Wheel 50 feet with 2 turns (QC: 6 Type: Manual Wheel 150 feet: 6 Type: Manual (6) PT Plan Problem List Problem List: Activity Tolerance, Functional Strength, Safety, Balance, Gait, Transfer, Bed Mobility, ROM Treatment/Plan Treatment Plan: Continue Plan of Care Treatment Plan: Bed Mobility, Education, Functional Activity [place], Functional Strength, Group Therapy, Gait, Safety, Therapeutic Exercise, Transfers Treatment Duration: May 18, 2021 Frequency: At least 5 of 7 days/Wk (IRF) Estimated Hrs Per Day: 1.5 hours per day Patient and/or Family Agrees t: Yes Safety Risks/Education Patient Education: Correct Positioning (patient laying on right side for pressure relief), Safety Issues Teaching Recipient: Patient Teaching Methods: Demonstration, Discussion Response to Teaching: Reinforcement Needed Time/GCodes Time In: 1400 Time Out: 1430 Total Billed Treatment Time: 30 Total Billed Treatment 1 visit EX 30' MAURO MOORE PT Apr 23, 2021 14:20
--- NOTE | 2021-04-23 15:33 | Wound Care Assessment ---
Wound Care Assessment Date Seen by Provider: Apr 23, 2021 Time Seen by Provider: 11:30 Chief Complaint Stage 4 pressure ulcer sacrum with acute osteomyelitis STEVEN Diehl is a pleasant young lady who had a severe case of COVID-19 resulting in subsequent stage 4 pressure ulceration with acute osteomyelitis. She presented to my office prior to hospital admission from a local nursing facility. In my office she was hypotensive, febrile and with N/V. She was referred to the emergency room for admission. She was admitted to the ICU with severe sepsis and required broad spectrum antibiotics, pressure support and aggressive rehydration. Bone culture and biopsy obtained along with wound culture. These confirmed Pseudomonas infection (also in urine) and acute osteomyelitis. She is greatly improved from admission and is now admitted to rehab for strengthening and continued wound care and IV antibiotics. On initial exam she did have a piece of bone that flaked off which was obtained for biopsy/culture. The underlying bone did not appear necrotic to myself. Surgery also did not deem necessary for ariel debridement. Her wound dramatically improved with veraflow wound vac and she is now on a traditional wound vac. Bone is no longer exposed on today's exam. Wound bed appears pink and with good granulation. She remains on targeted antibiotic therapy and is gaining strength daily. She is improving with each visit. Wound has decreased in size from last evaluation. Past Medical History: Admits Diabetes Type II, Admits Heart Disease Smoking Status: Never a Smoker Alcohol Use: Denies Use Review of Systems General: Other (obesity) Exam Vital Signs Date Time Temp Pulse Resp B/P (MAP) Pulse Ox O2 Delivery O2 Flow Rate FiO2 04/23/21 09:16 Room Air 04/23/21 08:00 36.3 90 16 110/59 (76) 92 04/23/21 06:47 0.00 Capillary Refill : General Appearance: no apparent distress, obese Neck: full range of motion Respiratory: no respiratory distress, no accessory muscle use Extremities: normal range of motion Neurologic/Psychiatric: alert, normal mood/affect, oriented x 3 Skin: normal color, warm/dry Wound assessment: 2.0x2.0x1.2cm. No tunneling of undermining. The epithelia lization is small. Drainage is medium and serosanguinous. Granulation is large and pink, necrotic is small and slough. Margins show epibole. Results Laboratory Tests 12/6/21 06:30: White Blood Count 6.5, Red Blood Count 3.22L, Hemoglobin 10.0L, Hematocrit 33L, Mean Corpuscular Volume 101H, Mean Corpuscular Hemoglobin 31, Mean Corpuscular Hemoglobin Concent 31L, Red Cell Distribution Width 16.0H, Platelet Count 324, Mean Platelet Volume 9.4, Immature Granulocyte % (Auto) 1, Neutrophils (%) (Auto) 47, Lymphocytes (%) (Auto) 35, Monocytes (%) (Auto) 11, Eosinophils (%) (Auto) 5, Basophils (%) (Auto) 1, Neutrophils # (Auto) 3.1, Lymphocytes # (Auto) 2.3, Monocytes # (Auto) 0.7, Eosinophils # (Auto) 0.3, Basophils # (Auto) 0.1, Immature Granulocyte # (Auto) 0.1, Sodium Level 142, Potassium Level 3.4L, Chloride Level 112H, Carbon Dioxide Level 21, Anion Gap 9, Blood Urea Nitrogen 16, Creatinine 0.75, Estimat Glomerular Filtration Rate 86, BUN/Creatinine Ratio 21, Glucose Level 77, Calcium Level 10.0, Corrected Calcium 11.3H, Total Bilirubin 0.3, Aspartate Amino Transf (AST/SGOT) 20, Alanine Aminotransferase (ALT/SGPT) 19, Alkaline Phosphatase 72, Total Protein 4.4L, Albumin 2.4L Assessment/Plan/Dx Assessment: 1. Post COVID 19 stage 4 sacral pressure ulcer 2. Acute pseudomonal osteomyelitis 3. DM2 4. PEM 5. Generalized weakness Plan: 1. Targeted antibiotic therapy for 8 weeks. Defer changes to primary's capable hands if needed in future. 2. Appropriate off loading per turning and bedding 3. Continue wound vac. 4. Glycemic control for speed of wound healing. Defer diabetic changes to primary 5. High protein diet/supplements as indicated. 6. Increased strengthening per rehab personnel. 7. Liseth covered with hydrocolloid dressing to be changed twice weekly with wound vac changes to inferior portion of wound (moisture injury). This area of moisture injury is stable and not worsened from in past. ANKIT BERNABE MD Apr 23, 2021 15:33
[2021-04-23 19:37] VITALS: BP 91/59
[2021-04-23] MEDS: TOLTERODINE LA 4 MG (DETROL) CAP PO SCH (21:33)
[2021-04-23] MEDS: MELATONIN 10 MG TABLET PO SCH (21:33)
[2021-04-24] MEDS: CATHETER FLUSH 10 ML SYR IV SCH ×3 (06:16→21:42)
[2021-04-24] MEDS: CEFEPIME INJECTION 2,000 MG in NS (IVPB) 50 ML IV SCH ×3 (06:16→21:42)
[2021-04-24] MEDS: VENlafaxine XR 75 MG (EFFEXOR XR) CAP PO SCH (06:17)
[2021-04-24] MEDS: MULTIVIT W/MINERALS TAB (THERAGRAN M) PO SCH (06:17)
[2021-04-24 08:00] VITALS: BP 96/54
[2021-04-24] MEDS: APIXABAN 5 MG (ELIQUIS) TABLET PO SCH ×2 (08:09→21:45)
[2021-04-24] MEDS: FERROUS SULF 325 MG (IRON) TAB PO SCH (08:09)
[2021-04-24] MEDS: OXYBUTYNIN (DITROPAN) 5 MG TAB PO SCH ×3 (08:09→21:45)
[2021-04-24] MEDS: MESALAMINE 250 MG (PENTASA) CAP PO SCH ×3 (08:09→21:45)
[2021-04-24] MEDS: HYDROcodone/APAP 7.5 MG/325 MG (LORTAB, LORCET PLUS) TABLET PO SCH ×4 (08:09→21:45)
[2021-04-24] MEDS: SERTRALINE 50 MG (ZOLOFT) TABLET PO SCH (08:10)
[2021-04-24] MEDS: LACTOBACILLUS ACIDOPHILUS (PROBIOTIC) CAPSULE PO SCH ×3 (08:10→18:16)
[2021-04-24] MEDS: NYSTATIN CREAM (MYCOSTATIN) 30 GM TUBE TP SCH (09:00)
[2021-04-24] MEDS: COLLAGENASE 30 GM (SANTYL) TUBE TP SCH (09:00)
[2021-04-24] MEDS: polyethylene glycoL POWDER 17 GM (MIRALAX) PACK PO SCH ×2 (09:00→21:46)
[2021-04-24] MEDS: MICONAZOLE 2% POWDER (DESENEX AF) 90 GM TOP SCH (09:00)
[2021-04-24] MEDS: ATENOLOL 25 MG (TENORMIN) TAB PO SCH ×2 (09:00→21:45)
--- NOTE | 2021-04-24 09:01 | Physical Therapy Daily Note ---
PT Daily Note-Current Subjective Patient in bed pre tx, agrees to PT, has 4/10 pain on bottom. Will be co- treating with OT due to poor patient mobility, strength, endurance, severe debility, coordinate UE and LE during activity, safety and reduce risk of falls. Appearance Patient in room in , will continue for a bit with OT Mental Status Patient Orientation: Normal For Age Attachments: Fernandez Catheter wound vac Transfers SCALE: Activities may be completed with or without assistive devices. 5-Rftzfdjutv-zmpgytg completes the activity by him/herself with no assistance from a helper. 5-Set-up or Clean-up Assistance-helper sets up or cleans up; patient completes activity. [place] assists only prior to or following the activity. 4-Supervision or Touching Assistance-helper provides verbal cues and/or touching/steadying and/or contact guard assistance as patient completes activity. Assistance may be provided throughout the activity or intermittently. 3-Partial/Moderate Assistance-helper does LESS THAN HALF the effort. [place] lifts, holds or supports trunk or limbs, but provides less than half the effort. 2-Substantial/Maximal Assistance-helper does MORE THAN HALF the effort. [place] lifts or holds trunk or limbs and provides more than half the effort. 8-Rvkhppriu-bjepkf does ALL the effort. Patient does none of the effort to complete the activity. Or, the assistance of 2 or more helpers is required for the patient to complete the activity. If activity was not attempted, code reason: 7-Patient Refused. 9-Not Applicable-not attempted and the patient did not perform the activity before the current illness, exacerbation or injury. 10-Not Attempted due to Environmental Limitations-(lack of equipment, weather restraints, etc.). 88-Not Attempted due to Medical Conditions or Safety Concerns. Roll Left & Right (QC): 6 Lying to Sitting/Side of Bed(Q: 4 Sit to Stand (QC): 3 Chair/Eei-af-Mdzka Xfer(QC): 3 Patient sits to the side of the bed for dressing, stands with min/mod assist to get her pants on all the way and then perform a transfer to the WC. Patient propels WC to her bathroom and practices a stand pivot transfer to toilet with min/mod assist and then back to the . Patient propels WC to therapy gym, ambulates a couple of times. Then a standing frame is used to stand patient, she can only stand for about 20 seconds before getting nauseated and needing to sit back down. Weight Bearing Right Lower Extremity: Right Full Weight Bearing Left Lower Extremity: Left Full Weight Bearing Patient is cleared medically to bear weight through bilateral LEs, however due to prolonged illness and bed rest, patients LE's very weak and plantarflexion contractures bilaterally Gait Training Does the Patient Walk?: Yes Distance: 5'x2 Gait Assistive Device: FWW An aircast is used on left ankle to stabilize, she has a left ankle contracture. Patient is able to only take a couple of steps with each foot before needing to sit back down. Wheelchair Training Does the Pt Use a Wheelchair?: Yes Wheel 50 ft with 2 turns (QC): 4 Type of Wheelchair: Manual 120', SBA Treatments PT performed bed mobility and transfers, ambulation, WC mobility, standing and safety during dressing, standing frame, OT performed dressing, UE positioning and safety during activity Assessment Current Status: Poor Progress Patient progressing very slowly, left ankle contracture persists PT Short Term Goals Short Term Goals Time Frame: Apr 20, 2021 Roll Left & Right: 4 Sit to lyin Lying to sitting on side of be: 4 Sit to stand: 3 Chair/zcw-nh-cxamf transfer: 3 Toilet transfer: 3 Car transfer: 3 Walk 10 feet: 2 Walk 50 feet with two turns: 1 Walk 150 feet: 1 Does pt use a wc or scooter: Yes Wheel 50ft w/2 turns: 5 Wheel 150 feet: 5 Type: Manual PT Long-Term Goals Long-Term Goals PT Mental Health Program Manager Goals Time Frame: May 18, 2021 Roll Left & Right (QC): 6 Sit to Lying (QC): 6 Lying-Sitting on Side/Bed(QC): 6 Sit to Stand (QC): 4 Chair/Fse-tj-Lmovs Xfer(QC): 4 Toilet Transfer (QC): 4 Car Transfer (QC): 4 Does the Patient Walk: Yes Walk 10 feet (QC): 3 Walk 50ft with 2 Turns (QC): 3 Walk 150 ft (QC): 3 Walking 10ft on Uneven Surface: 3 1 Step (curb) (QC): 2 4 Steps (QC): 2 12 Steps (QC): 88 Picking up an Object (QC): 3 Does the Pt use WC or Scooter?: Yes Wheel 50 feet with 2 turns (QC: 6 Type: Manual Wheel 150 feet: 6 Type: Manual (6) PT Plan Problem List Problem List: Activity Tolerance, Functional Strength, Safety, Balance, Gait, Transfer, Bed Mobility, ROM Treatment/Plan Treatment Plan: Continue Plan of Care Treatment Plan: Bed Mobility, Education, Functional Activity John Paul, Functional Strength, Group Therapy, Gait, Safety, Therapeutic Exercise, Transfers Treatment Duration: May 18, 2021 Frequency: At least 5 of 7 days/Wk (IRF) Estimated Hrs Per Day: 1.5 hours per day Patient and/or Family Agrees t: Yes Safety Risks/Education Patient Education: Gait Training, Correct Positioning, W/C Management, Safety Issues Teaching Recipient: Patient Teaching Methods: Demonstration, Discussion Response to Teaching: Reinforcement Needed Time/GCodes Time In: 0800 Time Out: 0900 Total Billed Treatment Time: 60 Total Billed Treatment 1 visit FA Elli' MAURO MOORE PT Apr 24, 2021 09:01
--- NOTE | 2021-04-24 09:24 | Occupational Ther Daily Note ---
OT Current Status-Daily Note Subjective Reports pain as 4/10 in buttocks. Pain meds given towards beginning of session. Will be co-treating with PT due to poor patient mobility, strength, endurance, severe debility, coordinate UE and LE during activity, safety and reduce risk of falls. Appearance Returned to supine in bed, all needs within reach. Mental Status/Objective Patient Orientation: Person, Place, Time, Situation Attachments: Drains, Fernandez Catheter, IV ADL-Treatment Therapy Code Descriptions/Definitions Functional [place] Measure: 0=Not Assessed/NA 4=Minimal Assistance 1=Total Assistance 5=Supervision or Setup 2=Maximal Assistance 6=Modified [place] 3=Moderate Assistance 7=Complete IndependenceSCALE: Activities may be completed with or without assistive devices. 0-Zevzrdqjkf-jftinru completes the activity by him/herself with no assistance from a helper. 5-Set-up or Clean-up Assistance-helper sets up or cleans up; patient completes activity. [place] assists only prior to or following the activity. 4-Supervision or Touching Assistance-helper provides verbal cues and/or touching/steadying and/or contact guard assistance as patient completes activi ty. Assistance may be provided throughout the activity or intermittently. 3-Partial/Moderate Assistance-helper does LESS THAN HALF the effort. [place] lifts, holds or supports trunk or limbs, but provides less than half the effort. 2-Substantial/Maximal Assistance-helper does MORE THAN HALF the effort. [place] lifts or holds trunk or limbs and provides more than half the effort. 6-Phkkndtat-buqqvw does ALL the effort. Patient does none of the effort to complete the activity. Or, the assistance of 2 or more helpers is required for the patient to complete the activity. If activity was not attempted, code reason: 7-Patient Refused. 9-Not Applicable-not attempted and the patient did not perform the activity before the current illness, exacerbation or injury. 10-Not Attempted due to Environmental Limitations-(lack of equipment, weather restraints, etc.). 88-Not Attempted due to Medical Conditions or Safety Concerns. Upper Body Dressing (QC): 5 Lower Body Dressing (QC): 1 Toilet Transfer (QC): 3 Dressing tasks performed at bed level. When donning LB clothing, pt able to utilize cross over method while in supine, yet still requires use of horse trekking guide to fully reach over toes. Brief donned over hips in supine while bridging and rolling R/L. Extra time, but no assist needed. Lower QC score secondary to completing clothing management in standing vs supine. Pt stood with mod A, second person needed to pull pants up to waist. Other Treatment Min verbal cues for set up of w/c at toilet. Toilet transfer x2 with min/mod A and use of grab bars. She propelled w/c to/from gym with several short rest breaks secondary to impaired activity tolerance. Attempt at standing with walker and taking few steps, yet pt continues to have poor standing tolerance and will quickly sit when fatigued; ~30-40 seconds. A standing frame brought in to encourage longer standing times and weight bearing through LE's. Pt only able to tolerate standing in frame for ~20 seconds before c/o nausea and lightheadedness. Education OT Patient Education: Correct positioning, Energy conservation, Modified ADL techniques, Progress toward Goal/Update tx plan, Purpose of tx/functional activities, Use of adapted equipment, W/C management Teaching Recipient: Patient Teaching Methods: Demonstration, Discussion Response to Teaching: Verbalize Understanding, Return Demonstration OT Short Term Goals Short Term Goals Time Frame: Apr 20, 2021 Eatin Oral hygiene: 5 Toileting hygiene: 2 Shower/bathe self: 2 Upper body dressin Lower body dressin Putting on/taking off footwear: 2 OT [place] Deckhand Goals [facility] Goals Time Frame: May 04, 2021 Eating (QC): 6 Oral Hygiene (QC): 5 Toileting Hygiene (QC): 4 Shower/Bathe Self (QC): 4 Upper Body Dressing (QC): 5 Lower Body Dressing (QC): 4 On/Off Footwear (QC): 4 1=Demonstrate adherence to instructed precautions during ADL tasks. 2=Patient will verbalize/demonstrate understanding of assistive devices/modifications for ADL. 3=Patient will improve strength/tolerance for activity to enable patient to perform ADL's. OT Education/Plan Problem List/Assessment Assessment: Decreased Activ Tolerance, Decreased UE Strength, Impaired Funct Balance, Impaired I ADL's, Impaired Self-Care Skills Discharge Recommendations Plan/Recommendations: Continue POC Treatment Plan/Plan of Care Treatment,Training & Education: Yes Patient would benefit from OT for education, treatment and training to promote independence in ADL's, mobility, safety and/or upper extremity function for ADL's. Plan of Care: ADL Retraining, Functional Mobility, Group Exercise/Act as Ind, UE Funct Exercise/Act, UE Neuromus Re-Ed/Coord, W/C Management Training Treatment Duration: May 04, 2021 Frequency: At least 5 of 7 days/Wk (IRF) Estimated Hrs Per Day: 1.5 hours per day Agreement: Yes Rehab Potential: Fair Time/GCodes Start Time: 07:45 Stop Time: 09:15 Total Time Billed (hr/min): 90 Billed Treatment Time 1 visit ADL x3 (50 min) FA x3 (40 min) co treat for 60 min Latoya Becker OT Apr 24, 2021 09:24
--- NOTE | 2021-04-24 09:24 | PM&R Progress Note ---
Subjective HPI/CC On Admission Date Seen by Provider: Apr 24, 2021 Time Seen by Provider: 09:30 Subjective/Events-last exam 04/24/2021: Patient doing well Working on fecal incontinence Bowel routine is the priority today Check meds and labs 04/23/21: Pt doing well Wound vac will be changed today Fecal incontinence noted Bowel routine will be implemented 04/22/2021: Patient doing well Bowels move this morning with fecal incontinence Increase fluid intake is encouraged 04/21/21: Patient doing well Family visited with children Standing and pivoting very well 04/20/2021: Pt doing really well Wound vac was changed IV Zofran given every morning Changed her Scopolamine patch Children will visit tomorrow 04/19/2021: Pt stood and walked two steps today Wedge in left foot in shoe for foot drop has been helpful Zofran IV will be given every morning 04/18/2021: Pt doing well Catheter will be kept until decubitus ulcer heals BNO suppositories will be ordered for bladder spasms IV iron infusions completed Left foot drop is improving 04/17/2021: Pt doing much better Foot drop will be worked on today Getting up and around today Checked meds and labs Nausea improved 04/16/2021: Pt having some nausea Wound vac came off yesterday, replacing that today IV Zofran given for nausea Garett will restart the wound vac Consulting urology for bladder spasms 04/15/2021: Patient doing very well Visitors today No pain is reported Wound VAC in place Fecal incontinence continues 04/14/2021: Patient doing very well today Stood with a walker today at bedside No pain is reported Wound VAC in place 04/13/21: Patient doing well Scop patch resolving the nausea Pain controlled Wound vac changed No issues 04/12/2021: Scopolamine patch working well Patient doing well Wound VAC maintained Check meds and labs No pain Eating and drinking well Scopolamine patch working well 04/11/2021: Patient doing well Fecal incontinence again last night Participating in therapy Wound VAC changed 04/10/2021: Patient doing well No major concerns PICC line dysfunction will be assessed Foot drop will be addressed with AFO Incontinent of bowel last night 04/09/2021: Patient doing really well Labs stable Hemoglobin 8.6 Wound VAC working well Getting ready to go the parallel bars with physical therapy 04/08/2021: Patient doing very well Was up 4 times yesterday out of bed Loose stools only has occurred once May need to use Questran as needed Check meds labs 04/07/2021: Patient doing very well We will get up in chair for lunch Hemoglobin 8.6 Bowels are moving now so on verge of constipation will change Questran to as needed no pain is reported Wound VAC tolerated well Review of Systems General: Fatigue, Malaise Objective Exam Vital Signs Vital Signs Date Time Temp Pulse Resp B/P (MAP) Pulse Ox O2 Delivery O2 Flow Rate FiO2 04/24/21 21:00 98 Room Air 04/24/21 20:38 36.2 99 18 116/65 (82) 04/23/21 06:47 0.00 Capillary Refill : General Appearance: No Apparent Distress, WD/WN, Chronically ill, Other (pale, chronically ill) HEENT: PERRL/EOMI, Normal ENT Inspection, Pharynx Normal Neck: Full Range of Motion, Normal Inspection, Non Tender, Supple, Carotid Bruit Respiratory: Chest Non Tender, Lungs Clear, Normal Breath Sounds, No Accessory Muscle Use, No Respiratory Distress Cardiovascular: Regular Rate, Rhythm, No Edema, No Gallop, No JVD, No Murmur, Normal Peripheral Pulses Gastrointestinal: Normal Bowel Sounds, No Organomegaly, No Pulsatile Mass, Non Tender, Soft Back: Normal Inspection, No CVA Tenderness, No Vertebral Tenderness Extremity: Normal Capillary Refill, Normal Inspection, Normal Range of Motion, Non Tender, No Calf Tenderness, No Pedal Edema Neurologic/Psychiatric: Alert, Oriented x3, No Motor/Sensory Deficits, hot pond operator II- XII Norm as Tested, Depressed Affect, Motor Weakness (3/5 upper 1/5 lower) Skin: Normal Color, Warm/Dry, Other (coccyx decubitus ulcer with wound vac) Lymphatic: No Adenopathy Results/Procedures Lab Patient resulted labs reviewed. FIM Transfers Therapy Code Descriptions/Definitions Functional [place] Measure: 0=Not Assessed/NA 4=Minimal Assistance 1=Total Assistance 5=Supervision or Setup 2=Maximal Assistance 6=Modified [place] 3=Moderate Assistance 7=Complete IndependenceSCALE: Activities may be completed with or without assistive devices. 3-Aaxtnwfrcz-qyknush completes the activity by him/herself with no assistance from a helper. 5-Set-up or Clean-up Assistance-helper sets up or cleans up; patient completes activity. [place] assists only prior to or following the activity. 4-Supervision or Touching Assistance-helper provides verbal cues and/or touching/steadying and/or contact guard assistance as patient completes activity. Assistance may be provided throughout the activity or intermittently. 3-Partial/Moderate Assistance-helper does LESS THAN HALF the effort. [place] lifts, holds or supports trunk or limbs, but provides less than half the effort. 2-Substantial/Maximal Assistance-helper does MORE THAN HALF the effort. Means lifts or holds trunk or limbs and provides more than half the effort. 1-Mcnfufafc-phrbve does ALL the effort. Patient does none of the effort to complete the activity. Or, the assistance of 2 or more helpers is required for the patient to complete the activity. If activity was not attempted, code reason: 7-Patient Refused. 9-Not Applicable-not attempted and the patient did not perform the activity before the current illness, exacerbation or injury. 10-Not Attempted due to Environmental Limitations-(lack of equipment, weather restraints, etc.). 88-Not Attempted due to Medical Conditions or Safety Concerns. Roll Left to Right (QC): 6 Sit to Lying (QC): 6 Sit to Stand (QC): 3 Chair/Yvu-ig-Rnoyd Xfer(QC): 3 Car Transfer (QC): 1 Gait Training Does the Patient Walk?: Yes Distance: 5'x2 Walk 10 feet (QC): 88 Walk 50 ft with 2 Turns(QC): 88 Walk 150 ft (QC): 88 Walking 10ft/uneven surface-QC: 88 Gait Persons Needed: 1 Gait Assistive Device: FWW Wheelchair Training Does the Pt Use a Wheelchair?: Yes Distance: 150 Wheel 50 ft with 2 turns (QC): 4 Wheel 150 ft (QC): 3 Type of Wheelchair: Manual Stair Training #of Steps: 0 1 Step (curb) (QC): 88 4 Steps (QC): 88 12 Steps (QC): 88 Balance Picking up an Object (QC): 88 ADL-Treatment Eating (QC): 6 Oral Hygiene (QC): 6 Shower/Bathe Self (QC): 3 Upper Body Dressing (QC): 5 Lower Body Dressing (QC): 3 On/Off Footwear (QC): 3 Toileting Hygiene (QC): 1 Toilet Transfer (QC): 2 Assessment/Plan Assessment and Plan Assess & Plan/Chief Complaint Assessment: Post Covid with deconditioning s/p severe sepsis Diarrhea Sacral decubitus ulcer Hypokalemia Anemia previous transfusion Anxiety and Depression Fernandez catheter 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 Ongoing nausea improved Scopolamine patch Plan: IV abx Wound vac PT OT Depression meds OAC 04/07/2021: Wound VAC Out of bed 04/08/2021: Out of bed Wound VAC 04/09/2021: Supportive care Dramatic improvement already 04/10/2021: Supportive care Fernandez catheter required although it is an infection risk 04/11/2021: Supportive care Wound VAC appreciated 04/12/2021: Scopolamine patch Wound VAC 04/13/21: Scop patch Monitor pain 04/14/2021: Supportive care Wound VAC 04/14/2021: Wound VAC Fecal incontinence management 04/15/2021: Wound VAC management Continue depression treatment 04/16/2021: Supportive care Change wound VAC 04/17/2021: Appreciate wound care Cefepime 04/18/2021: Continue aggressive PT Wound VAC 04/19/2021: Supportive care Hold potassium to see if that helps with nausea 04/20/2021: Supportive care Children will visit tomorrow 04/21/2021: Supportive care Family visiting has helped her morale 04/22/2021: Supportive care Wound VAC management 04/23/2021: Supportive care Wound VAC management 04/24/2021: Supportive care Fecal incontinence management (1) Post covid-19 condition, unspecified Status: Chronic (2) Sacral decubitus ulcer, stage IV Status: Chronic (3) Severe sepsis Status: Acute (4) UTI (urinary tract infection) TERRA EDWARDS DO Apr 24, 2021 09:24
[2021-04-24] MEDS ORDERED: MICONAZOLE 2% POWDER (DESENEX AF) 90 GM TOP PRN (13:00)
[2021-04-24] MEDS ORDERED: NYSTATIN CREAM (MYCOSTATIN) 30 GM TUBE TP PRN (13:00)
[2021-04-24] MEDS: ONDANSETRON 4 MG/2 ML (SDV) Z0FRAN IVP PRN (14:09)
--- NOTE | 2021-04-24 14:35 | Physical Therapy Daily Note ---
PT Daily Note-Current Subjective Patient in bed pre tx, agrees to PT, has no complaints of pain but is very nauseated, nurse said patient vomited right before therapy. Appearance Patient in bed post tx with nurse call, phone, tray, all needs met. Mental Status Patient Orientation: Person, Place, Situation Attachments: Fernandez Catheter wound vac Transfers SCALE: Activities may be completed with or without assistive devices. 7-Bbdzxsizcu-lbcozjc completes the activity by him/herself with no assistance from a helper. 5-Set-up or Clean-up Assistance-helper sets up or cleans up; patient completes activity. [place] assists only prior to or following the activity. 4-Supervision or Touching Assistance-helper provides verbal cues and/or touching/steadying and/or contact guard assistance as patient completes activity. Assistance may be provided throughout the activity or intermittently. 3-Partial/Moderate Assistance-helper does LESS THAN HALF the effort. [place] lifts, holds or supports trunk or limbs, but provides less than half the effort. 2-Substantial/Maximal Assistance-helper does MORE THAN HALF the effort. [place] lifts or holds trunk or limbs and provides more than half the effort. 2-Oedvfltfh-ljuphn does ALL the effort. Patient does none of the effort to complete the activity. Or, the assistance of 2 or more helpers is required for the patient to complete the activity. If activity was not attempted, code reason: 7-Patient Refused. 9-Not Applicable-not attempted and the patient did not perform the activity before the current illness, exacerbation or injury. 10-Not Attempted due to Environmental Limitations-(lack of equipment, weather restraints, etc.). 88-Not Attempted due to Medical Conditions or Safety Concerns. Weight Bearing Right Lower Extremity: Right Full Weight Bearing Left Lower Extremity: Left Full Weight Bearing Patient is cleared medically to bear weight through bilateral LEs, however due to prolonged illness and bed rest, patients LE's very weak and plantarflexion contractures bilaterally Exercises Supine Ex: Ankle pumps, Quad Set, Glut sets, Heel Slides, Short Arc Quads, Straight leg raise, Hip abd/add Supine Reps: 20 Treatments LE strengthening Assessment Current Status: Poor Progress Patient needed several significant rest breaks due to fatigue and nausea PT Short Term Goals Short Term Goals Time Frame: Apr 20, 2021 Roll Left & Right: 4 Sit to lyin Lying to sitting on side of be: 4 Sit to stand: 3 Chair/dwq-tg-rcdqq transfer: 3 Toilet transfer: 3 Car transfer: 3 Walk 10 feet: 2 Walk 50 feet with two turns: 1 Walk 150 feet: 1 Does pt use a wc or scooter: Yes Wheel 50ft w/2 turns: 5 Wheel 150 feet: 5 Type: Manual PT Care Home Goals Legal Arbitrator Goals PT Care Home Goals Time Frame: May 18, 2021 Roll Left & Right (QC): 6 Sit to Lying (QC): 6 Lying-Sitting on Side/Bed(QC): 6 Sit to Stand (QC): 4 Chair/Asc-og-Ydzqm Xfer(QC): 4 Toilet Transfer (QC): 4 Car Transfer (QC): 4 Does the Patient Walk: Yes Walk 10 feet (QC): 3 Walk 50ft with 2 Turns (QC): 3 Walk 150 ft (QC): 3 Walking 10ft on Uneven Surface: 3 1 Step (curb) (QC): 2 4 Steps (QC): 2 12 Steps (QC): 88 Picking up an Object (QC): 3 Does the Pt use WC or Scooter?: Yes Wheel 50 feet with 2 turns (QC: 6 Type: Manual Wheel 150 feet: 6 Type: Manual (6) PT Plan Problem List Problem List: Activity Tolerance, Functional Strength, Safety, Balance, Gait, Transfer, Bed Mobility, ROM Treatment/Plan Treatment Plan: Continue Plan of Care Treatment Plan: Bed Mobility, Education, Functional Activity John Paul, Functional Strength, Group Therapy, Gait, Safety, Therapeutic Exercise, Transfers Treatment Duration: May 18, 2021 Frequency: At least 5 of 7 days/Wk (IRF) Estimated Hrs Per Day: 1.5 hours per day Patient and/or Family Agrees t: Yes Safety Risks/Education Patient Education: Correct Positioning, Safety Issues Teaching Recipient: Patient Teaching Methods: Demonstration, Discussion Response to Teaching: Reinforcement Needed Time/GCodes Time In: 1415 Time Out: 1445 Total Billed Treatment Time: 30 Total Billed Treatment 1 visit EX 30' MAURO MOORE PT Apr 24, 2021 14:35
[2021-04-24 20:38] VITALS: BP 116/65
[2021-04-24] MEDS: MELATONIN 10 MG TABLET PO SCH (21:43)
[2021-04-24] MEDS: TOLTERODINE LA 4 MG (DETROL) CAP PO SCH (21:45)
--- NOTE | 2021-04-25 05:48 | PM&R Progress Note ---
Subjective HPI/CC On Admission Date Seen by Provider: Apr 25, 2021 Time Seen by Provider: 10:00 Subjective/Events-last exam 04/25/21: Pt doing well Bowel regimen will be maintained Getting up to the commode she had a vasovagal syncopal episode She needs to sit up more and she will do that Very slow recovery 04/24/2021: Patient doing well Working on fecal incontinence Bowel routine is the priority today Check meds and labs 04/23/21: Pt doing well Wound vac will be changed today Fecal incontinence noted Bowel routine will be implemented 04/22/2021: Patient doing well Bowels move this morning with fecal incontinence Increase fluid intake is encouraged 04/21/21: Patient doing well Family visited with children Standing and pivoting very well 04/20/2021: Pt doing really well Wound vac was changed IV Zofran given every morning Changed her Scopolamine patch Children will visit tomorrow 04/19/2021: Pt stood and walked two steps today Wedge in left foot in shoe for foot drop has been helpful Zofran IV will be given every morning 04/18/2021: Pt doing well Catheter will be kept until decubitus ulcer heals BNO suppositories will be ordered for bladder spasms IV iron infusions completed Left foot drop is improving 04/17/2021: Pt doing much better Foot drop will be worked on today Getting up and around today Checked meds and labs Nausea improved 04/16/2021: Pt having some nausea Wound vac came off yesterday, replacing that today IV Zofran given for nausea [place] will restart the wound vac Consulting urology for bladder spasms 04/15/2021: Patient doing very well Visitors today No pain is reported Wound VAC in place Fecal incontinence continues 04/14/2021: Patient doing very well today Stood with a walker today at bedside No pain is reported Wound VAC in place 04/13/21: Patient doing well Scop patch resolving the nausea Pain controlled Wound vac changed No issues 04/12/2021: Scopolamine patch working well Patient doing well Wound VAC maintained Check meds and labs No pain Eating and drinking well Scopolamine patch working well 04/11/2021: Patient doing well Fecal incontinence again last night Participating in therapy Wound VAC changed 04/10/2021: Patient doing well No major concerns PICC line dysfunction will be assessed Foot drop will be addressed with AFO Incontinent of bowel last night 04/09/2021: Patient doing really well Labs stable Hemoglobin 8.6 Wound VAC working well Getting ready to go the parallel bars with physical therapy 04/08/2021: Patient doing very well Was up 4 times yesterday out of bed Loose stools only has occurred once May need to use Questran as needed Check meds labs 04/07/2021: Patient doing very well We will get up in chair for lunch Hemoglobin 8.6 Bowels are moving now so on verge of constipation will change Questran to as needed no pain is reported Wound VAC tolerated well Review of Systems General: Fatigue, Malaise Objective Exam Vital Signs Vital Signs Date Time Temp Pulse Resp B/P (MAP) Pulse Ox O2 Delivery O2 Flow Rate FiO2 04/25/21 21:14 98 Room Air 04/25/21 20:21 36.4 88 18 117/62 (80) 04/23/21 06:47 0.00 Capillary Refill : General Appearance: No Apparent Distress, WD/WN, Chronically ill, Other (pale, chronically ill) HEENT: PERRL/EOMI, Normal ENT Inspection, Pharynx Normal Neck: Full Range of Motion, Normal Inspection, Non Tender, Supple, Carotid Bruit Respiratory: Chest Non Tender, Lungs Clear, Normal Breath Sounds, No Accessory Muscle Use, No Respiratory Distress Cardiovascular: Regular Rate, Rhythm, No Edema, No Gallop, No JVD, No Murmur, Normal Peripheral Pulses Gastrointestinal: Normal Bowel Sounds, No Organomegaly, No Pulsatile Mass, Non Tender, Soft Back: Normal Inspection, No CVA Tenderness, No Vertebral Tenderness Extremity: Normal Capillary Refill, Normal Inspection, Normal Range of Motion, Non Tender, No Calf Tenderness, No Pedal Edema Neurologic/Psychiatric: Alert, Oriented x3, No Motor/Sensory Deficits, chemical process project engineer II- XII Norm as Tested, Depressed Affect, Motor Weakness (3/5 upper 1/5 lower) Skin: Normal Color, Warm/Dry, Other (coccyx decubitus ulcer with wound vac) Lymphatic: No Adenopathy Results/Procedures Lab Patient resulted labs reviewed. FIM Transfers Therapy Code Descriptions/Definitions Functional [place] Measure: 0=Not Assessed/NA 4=Minimal Assistance 1=Total Assistance 5=Supervision or Setup 2=Maximal Assistance 6=Modified [place] 3=Moderate Assistance 7=Complete IndependenceSCALE: Activities may be completed with or without assistive devices. 8-Czbqpwnihr-qqcexcc completes the activity by him/herself with no assistance from a helper. 5-Set-up or Clean-up Assistance-helper sets up or cleans up; patient completes activity. [place] assists only prior to or following the activity. 4-Supervision or Touching Assistance-helper provides verbal cues and/or touching/steadying and/or contact guard assistance as patient completes activity. Assistance may be provided throughout the activity or intermittently. 3-Partial/Moderate Assistance-helper does LESS THAN HALF the effort. [place] lifts, holds or supports trunk or limbs, but provides less than half the effort. 2-Substantial/Maximal Assistance-helper does MORE THAN HALF the effort. [place] lifts or holds trunk or limbs and provides more than half the effort. 5-Mdxnesheq-gzfiup does ALL the effort. Patient does none of the effort to complete the activity. Or, the assistance of 2 or more helpers is required for the patient to complete the activity. If activity was not attempted, code reason: 7-Patient Refused. 9-Not Applicable-not attempted and the patient did not perform the activity before the current illness, exacerbation or injury. 10-Not Attempted due to Environmental Limitations-(lack of equipment, weather restraints, etc.). 88-Not Attempted due to Medical Conditions or Safety Concerns. Roll Left to Right (QC): 6 Sit to Lying (QC): 6 Sit to Stand (QC): 3 Chair/Wqg-ls-Enivv Xfer(QC): 3 Car Transfer (QC): 1 Gait Training Does the Patient Walk?: Yes Distance: 5'x2 Walk 10 feet (QC): 88 Walk 50 ft with 2 Turns(QC): 88 Walk 150 ft (QC): 88 Walking 10ft/uneven surface-QC: 88 Gait Persons Needed: 1 Gait Assistive Device: FWW Wheelchair Training Does the Pt Use a Wheelchair?: Yes Distance: 150 Wheel 50 ft with 2 turns (QC): 4 Wheel 150 ft (QC): 3 Type of Wheelchair: Manual Stair Training #of Steps: 0 1 Step (curb) (QC): 88 4 Steps (QC): 88 12 Steps (QC): 88 Balance Picking up an Object (QC): 88 ADL-Treatment Eating (QC): 6 Oral Hygiene (QC): 6 Shower/Bathe Self (QC): 3 Upper Body Dressing (QC): 5 Lower Body Dressing (QC): 1 On/Off Footwear (QC): 3 Toileting Hygiene (QC): 1 Toilet Transfer (QC): 3 Assessment/Plan Assessment and Plan Assess & Plan/Chief Complaint Assessment: Post Covid with deconditioning s/p severe sepsis Diarrhea Sacral decubitus ulcer Hypokalemia Anemia previous transfusion Anxiety and Depression Fernandez catheter 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 Ongoing nausea improved Scopolamine patch Plan: IV abx Wound vac PT OT Depression meds OAC 04/07/2021: Wound VAC Out of bed 04/08/2021: Out of bed Wound VAC 04/09/2021: Supportive care Dramatic improvement already 04/10/2021: Supportive care Fernandez catheter required although it is an infection risk 04/11/2021: Supportive care Wound VAC appreciated 04/12/2021: Scopolamine patch Wound VAC 04/13/21: Scop patch Monitor pain 04/14/2021: Supportive care Wound VAC 04/14/2021: Wound VAC Fecal incontinence management 04/15/2021: Wound VAC management Continue depression treatment 04/16/2021: Supportive care Change wound VAC 04/17/2021: Appreciate wound care Cefepime 04/18/2021: Continue aggressive PT Wound VAC 04/19/2021: Supportive care Hold potassium to see if that helps with nausea 04/20/2021: Supportive care Children will visit tomorrow 04/21/2021: Supportive care Family visiting has helped her morale 04/22/2021: Supportive care Wound VAC management 04/23/2021: Supportive care Wound VAC management 04/24/2021: Supportive care Fecal incontinence management 04/25/21: Fecal incontinence training (1) Post covid-19 condition, unspecified Status: Chronic (2) Sacral decubitus ulcer, stage IV Status: Chronic (3) Severe sepsis Status: Acute (4) UTI (urinary tract infection) TERRA EDWARDS DO Apr 25, 2021 05:48
[2021-04-25] MEDS: MULTIVIT W/MINERALS TAB (THERAGRAN M) PO SCH (06:37)
[2021-04-25] MEDS: VENlafaxine XR 75 MG (EFFEXOR XR) CAP PO SCH (06:37)
[2021-04-25] MEDS: CATHETER FLUSH 10 ML SYR IV SCH ×3 (06:51→21:19)
[2021-04-25] MEDS: CEFEPIME INJECTION 2,000 MG in NS (IVPB) 50 ML IV SCH ×3 (06:51→21:19)
[2021-04-25] MEDS: ONDANSETRON 4 MG/2 ML (SDV) Z0FRAN IVP PRN (07:33)
[2021-04-25 08:56] VITALS: BP 108/59
[2021-04-25] MEDS: ATENOLOL 25 MG (TENORMIN) TAB PO SCH ×2 (08:58→21:22)
[2021-04-25] MEDS: MESALAMINE 250 MG (PENTASA) CAP PO SCH ×3 (08:58→21:21)
[2021-04-25] MEDS: OXYBUTYNIN (DITROPAN) 5 MG TAB PO SCH ×3 (08:58→21:22)
[2021-04-25] MEDS: APIXABAN 5 MG (ELIQUIS) TABLET PO SCH ×2 (08:58→21:21)
[2021-04-25] MEDS: FERROUS SULF 325 MG (IRON) TAB PO SCH (08:59)
[2021-04-25] MEDS: LACTOBACILLUS ACIDOPHILUS (PROBIOTIC) CAPSULE PO SCH ×3 (08:59→18:04)
[2021-04-25] MEDS: HYDROcodone/APAP 7.5 MG/325 MG (LORTAB, LORCET PLUS) TABLET PO SCH ×4 (08:59→21:21)
[2021-04-25] MEDS: SERTRALINE 50 MG (ZOLOFT) TABLET PO SCH (08:59)
--- NOTE | 2021-04-25 09:04 | Physical Therapy Daily Note ---
PT Daily Note-Current Subjective Pt. in bed. EATs mostly in supine/side lying position. Has nausea. Reported having n&v yesterday. PT OT co Rx and discussed the importance of upright for cruzito eating and digestion. Pain Location: No Pain Reported Mental Status Patient Orientation: Normal For Age Attachments: Fernandez Catheter, Other-See Comments ([place]) Transfers SCALE: Activities may be completed with or without assistive devices. 2-Ftzpsmhqgw-rpaxqbc completes the activity by him/herself with no assistance from a helper. 5-Set-up or Clean-up Assistance-helper sets up or cleans up; patient completes activity. [place] assists only prior to or following the activity. 4-Supervision or Touching Assistance-helper provides verbal cues and/or touching/steadying and/or contact guard assistance as patient completes activity. Assistance may be provided throughout the activity or intermittently. 3-Partial/Moderate Assistance-helper does LESS THAN HALF the effort. [place] l ifts, holds or supports trunk or limbs, but provides less than half the effort. 2-Substantial/Maximal Assistance-helper does MORE THAN HALF the effort. [place] lifts or holds trunk or limbs and provides more than half the effort. 8-Rqpteeeja-akbevp does ALL the effort. Patient does none of the effort to complete the activity. Or, the assistance of 2 or more helpers is required for t he patient to complete the activity. If activity was not attempted, code reason: 7-Patient Refused. 9-Not Applicable-not attempted and the patient did not perform the activity before the current illness, exacerbation or injury. 10-Not Attempted due to Environmental Limitations-(lack of equipment, weather restraints, etc.). 88-Not Attempted due to Medical Conditions or Safety Concerns. Roll Left & Right (QC): 6 Sit to Lying (QC): 6 Lying to Sitting/Side of Bed(Q: 6 Sit to Stand (QC): 3 Chair/Ckg-ee-Cdzaq Xfer(QC): 3 Toilet Transfer (QC): 3 pt. sit to stand SPTs with skilled instruction and assist of 2 clinicians bed to w/c, w/c to shower, shower to w/c, w/c to bed/ bed to recliner Weight Bearing Right Lower Extremity: Right Full Weight Bearing Left Lower Extremity: Left Full Weight Bearing Patient is cleared medically to bear weight through bilateral LEs, however due to prolonged illness and bed rest, patients LE's very weak and plantarflexion contractures bilaterally Wheelchair Training Does the Pt Use a Wheelchair?: Yes Type of Wheelchair: Manual pt. encouraged to take full responsibility for w/c propulsion , brakes, and arm rest removal and application as she will likely use w/c at home Treatments TRFs, shower, w/c mobility, positioning and education for sitting and managing lift recline chair, all PT OT co Rx as pt continues to fatigue quickly and requires 2 skilled clinicians due to complexity of situation and mobility Assessment Current Status: Good Progress PT Short Term Goals Short Term Goals Time Frame: Apr 20, 2021 Roll Left & Right: 4 Sit to lyin Lying to sitting on side of be: 4 Sit to stand: 3 Chair/ssz-ap-ugcro transfer: 3 Toilet transfer: 3 Car transfer: 3 Walk 10 feet: 2 Walk 50 feet with two turns: 1 Walk 150 feet: 1 Does pt use a wc or scooter: Yes Wheel 50ft w/2 turns: 5 Wheel 150 feet: 5 Type: Manual PT Water Pump Servicer Goals Alf Goals PT Water Pump Servicer Goals Time Frame: May 18, 2021 Roll Left & Right (QC): 6 Sit to Lying (QC): 6 Lying-Sitting on Side/Bed(QC): 6 Sit to Stand (QC): 4 Chair/Eib-ta-Ehqag Xfer(QC): 4 Toilet Transfer (QC): 4 Car Transfer (QC): 4 Does the Patient Walk: Yes Walk 10 feet (QC): 3 Walk 50ft with 2 Turns (QC): 3 Walk 150 ft (QC): 3 Walking 10ft on Uneven Surface: 3 1 Step (curb) (QC): 2 4 Steps (QC): 2 12 Steps (QC): 88 Picking up an Object (QC): 3 Does the Pt use WC or Scooter?: Yes Wheel 50 feet with 2 turns (QC: 6 Type: Manual Wheel 150 feet: 6 Type: Manual (6) PT Plan Treatment/Plan Treatment Plan: Continue Plan of Care Treatment Plan: Bed Mobility, Education, Functional Activity [place], Functional Strength, Group Therapy, Gait, Safety, Therapeutic Exercise, Transfers Treatment Duration: May 18, 2021 Frequency: At least 5 of 7 days/Wk (IRF) Estimated Hrs Per Day: 1.5 hours per day Patient and/or Family Agrees t: Yes Safety Risks/Education Patient Education: Transfer Techniques, Correct Positioning, Disease Process, Safety Issues Teaching Recipient: Patient Teaching Methods: Demonstration, Discussion Response to Teaching: Verbalize Understanding, Return Demonstration, Reinforcement Needed Time/GCodes Time In: 800 Time Out: 900 Total Billed Treatment Time: 60 Total Billed Treatment 1,FA60m, (60 m PT OT co Rx) KRISSY SHEPHERD THERMAL MOLDER Apr 25, 2021 09:04
--- NOTE | 2021-04-25 09:06 | Occupational Ther Daily Note ---
OT Current Status-Daily Note Subjective Pt agreeable to treatment, reports 4/10 pain in buttocks. Will be co-treating with PT due to poor patient mobility, strength, endurance, severe debility, coordinate UE and LE during activity, safety and reduce risk of falls. Appearance Left sitting reclined in chair, all needs within reach, RN in room. Mental Status/Objective Patient Orientation: Person, Place, Time, Situation Attachments: Drains, Fernandez Catheter, IV ADL-Treatment Therapy Code Descriptions/Definitions Functional [place] Measure: 0=Not Assessed/NA 4=Minimal Assistance 1=Total Assistance 5=Supervision or Setup 2=Maximal Assistance 6=Modified [place] 3=Moderate Assistance 7=Complete IndependenceSCALE: Activities may be completed with or without assistive devices. 3-Vzhrgvwiko-ingjfyd completes the activity by him/herself with no assistance from a helper. 5-Set-up or Clean-up Assistance-helper sets up or cleans up; patient completes activity. [place] assists only prior to or following the activity. 4-Supervision or Touching Assistance-helper provides verbal cues and/or touching/steadying and/or contact guard assistance as patient completes activity. Assistance may be provided throughout the activity or intermittently. 3-Partial/Moderate Assistance-helper does LESS THAN HALF the effort. [place] lifts, holds or supports trunk or limbs, but provides less than half the effort. 2-Substantial/Maximal Assistance-helper does MORE THAN HALF the effort. [place] lifts or holds trunk or limbs and provides more than half the effort. 0-Fuptmefss-bzmrqv does ALL the effort. Patient does none of the effort to complete the activity. Or, the assistance of 2 or more helpers is required for the patient to complete the activity. If activity was not attempted, code reason: 7-Patient Refused. 9-Not Applicable-not attempted and the patient did not perform the activity before the current illness, exacerbation or injury. 10-Not Attempted due to Environmental Limitations-(lack of equipment, weather restraints, etc.). 88-Not Attempted due to Medical Conditions or Safety Concerns. Eating (QC): 6 Shower/Bathe Self (QC): 3 (min) Upper Body Dressing (QC): 5 Lower Body Dressing (QC): 4 Mod A squat/stand pivot transfer bed<>w/c<>shower bench. Shower performed: 100% completed in sitting. Reminder on lateral pelvic leans in order to wash buttoc ks, min a for thoroughness. LHS utilized to wash below knees, no assist. Following shower, pt verbalizes feelings of nausea and requests to return to bed. Extra time needed for rest. LB clothing donned supine in bed. Pt able to utilize cross over method while in supine, yet still requires use of economic development manager to fully reach over toes. Brief donned over hips in supine while bridging and r olling R/L. Extra time, but no assist needed. Assist to don socks this date due to c/o nausea. Mod a to transfer from bed>recliner. Pt educated and encouraged to increased upright sitting throughout day. She is able to demonstrate pressure relief while in recliner. Education OT Patient Education: Correct positioning, Energy conservation, Modified ADL techniques, Progress toward Goal/Update tx plan, Purpose of tx/functional activities, Transfer techniques, Use of adapted equipment, W/C management Teaching Recipient: Patient Teaching Methods: Demonstration, Discussion Response to Teaching: Verbalize Understanding, Return Demonstration, Reinforcement Needed OT Short Term Goals Short Term Goals Time Frame: Apr 20, 2021 Eatin Oral hygiene: 5 Toileting hygiene: 2 Shower/bathe self: 2 Upper body dressin Lower body dressin Putting on/taking off footwear: 2 OT Mcfp Goals Mcfp Goals Time Frame: May 04, 2021 Eating (QC): 6 Oral Hygiene (QC): 5 Toileting Hygiene (QC): 4 Shower/Bathe Self (QC): 4 Upper Body Dressing (QC): 5 Lower Body Dressing (QC): 4 On/Off Footwear (QC): 4 1=Demonstrate adherence to instructed precautions during ADL tasks. 2=Patient will verbalize/demonstrate understanding of assistive devices/modifications for ADL. 3=Patient will improve strength/tolerance for activity to enable patient to perform ADL's. OT Education/Plan Problem List/Assessment Assessment: Decreased Activ Tolerance, Decreased UE Strength, Impaired Funct Balance, Impaired I ADL's, Impaired Self-Care Skills Discharge Recommendations Plan/Recommendations: Continue POC Equpiment Recommendations-D/C: Rails on Tub/Shower, Veterinary Virologist Treatment Plan/Plan of Care Treatment,Training & Education: Yes Patient would benefit from OT for education, treatment and training to promote independence in ADL's, mobility, safety and/or upper extremity function for ADL's. Plan of Care: ADL Retraining, Functional Mobility, Group Exercise/Act as Ind, UE Funct Exercise/Act, UE Neuromus Re-Ed/Coord, W/C Management Training Treatment Duration: May 04, 2021 Frequency: At least 5 of 7 days/Wk (IRF) Estimated Hrs Per Day: 1.5 hours per day Agreement: Yes Rehab Potential: Fair Time/GCodes Start Time: 07:45 Stop Time: 09:00 Total Time Billed (hr/min): 75 Billed Treatment Time 1 visit ADL x5 Latoya Becker OT Apr 25, 2021 09:06
[2021-04-25] MEDS: polyethylene glycoL POWDER 17 GM (MIRALAX) PACK PO SCH ×2 (09:25→20:33)
--- NOTE | 2021-04-25 12:02 | Occupational Ther Daily Note ---
OT Current Status-Daily Note Subjective Pt reclined in chair, agreeable to treatment. Appearance Left reclined in bed, all needs within reach. ADL-Treatment Therapy Code Descriptions/Definitions Functional [place] Measure: 0=Not Assessed/NA 4=Minimal Assistance 1=Total Assistance 5=Supervision or Setup 2=Maximal Assistance 6=Modified [place] 3=Moderate Assistance 7=Complete IndependenceSCALE: Activities may be completed with or without assistive devices. 6-Xpyxdqxrjg-ufjgikj completes the activity by him/herself with no assistance from a helper. 5-Set-up or Clean-up Assistance-helper sets up or cleans up; patient completes activity. [place] assists only prior to or following the activity. 4-Supervision or Touching Assistance-helper provides verbal cues and/or touching/steadying and/or contact guard assistance as patient completes activity. Assistance may be provided throughout the activity or intermittently. 3-Partial/Moderate Assistance-helper does LESS THAN HALF the effort. [place] lifts, holds or supports trunk or limbs, but provides less than half the effort. 2-Substantial/Maximal Assistance-helper does MORE THAN HALF the effort. [place] lifts or holds trunk or limbs and provides more than half the effort. 6-Jnumfbagd-upwtcv does ALL the effort. Patient does none of the effort to complete the activity. Or, the assistance of 2 or more helpers is required for the patient to complete the activity. If activity was not attempted, code reason: 7-Patient Refused. 9-Not Applicable-not attempted and the patient did not perform the activity before the current illness, exacerbation or injury. 10-Not Attempted due to Environmental Limitations-(lack of equipment, weather restraints, etc.). 88-Not Attempted due to Medical Conditions or Safety Concerns. Other Treatment UE exercises performed with goal to promote increased strength and endurance needed for adls and transfers. Pt continues to have L wrist weakness (extension >flexion) causing difficulty maintaining stability when holding dumbbell. OT instructed and educated pt on A/AROM exercises and gentle stretches for wrist extension to complete throughout day. Able to perform all other movements to full range. 10x1 in all planes. Education OT Patient Education: Correct positioning, Exercise program, Modified ADL techniques, Progress toward Goal/Update tx plan, Purpose of tx/functional activities Teaching Recipient: Patient Teaching Methods: Demonstration, Discussion Response to Teaching: Verbalize Understanding, Return Demonstration, Reinforcement Needed OT Short Term Goals Short Term Goals Time Frame: Apr 20, 2021 Eatin Oral hygiene: 5 Toileting hygiene: 2 Shower/bathe self: 2 Upper body dressin Lower body dressin Putting on/taking off footwear: 2 OT Needle Board Repairer Goals Half-Way Goals Time Frame: May 04, 2021 Eating (QC): 6 Oral Hygiene (QC): 5 Toileting Hygiene (QC): 4 Shower/Bathe Self (QC): 4 Upper Body Dressing (QC): 5 Lower Body Dressing (QC): 4 On/Off Footwear (QC): 4 1=Demonstrate adherence to instructed precautions during ADL tasks. 2=Patient will verbalize/demonstrate understanding of assistive devices/modific ations for ADL. 3=Patient will improve strength/tolerance for activity to enable patient to perform ADL's. OT Education/Plan Problem List/Assessment Assessment: Decreased Activ Tolerance, Decreased UE Strength, Impaired Coordination, Impaired Funct Balance, Impaired I ADL's, Impaired Self-Care Skills Discharge Recommendations Plan/Recommendations: Continue POC Treatment Plan/Plan of Care Treatment,Training & Education: Yes Patient would benefit from OT for education, treatment and training to promote independence in ADL's, mobility, safety and/or upper extremity function for ADL's. Plan of Care: ADL Retraining, Functional Mobility, Group Exercise/Act as Ind, UE Funct Exercise/Act, UE Neuromus Re-Ed/Coord, W/C Management Training Treatment Duration: May 04, 2021 Frequency: At least 5 of 7 days/Wk (IRF) Estimated Hrs Per Day: 1.5 hours per day Agreement: Yes Rehab Potential: Fair Time/GCodes Start Time: 11:17 Stop Time: 11:38 Total Time Billed (hr/min): 21 Billed Treatment Time 1 visit EX Latoya Becker OT Apr 25, 2021 12:02
[2021-04-25] MEDS: ONDANSETRON 4 MG (ZOFRAN) ORAL DISSOLVE TAB PO PRN (13:08)
--- NOTE | 2021-04-25 13:10 | Physical Therapy Daily Note ---
PT Daily Note-Current Subjective Pt. up in recliner. Ate lunch there, able to move about in chair and relieve buttocks , still eat and be detention upright. Agrees to TRFs and ex Pain Location: No Pain Reported Mental Status Patient Orientation: Normal For Age Attachments: Fernandez Catheter, Other-See Comments ([place]) Transfers SCALE: Activities may be completed with or without assistive devices. 6-Klgtvimryl-krahewr completes the activity by him/herself with no assistance from a helper. 5-Set-up or Clean-up Assistance-helper sets up or cleans up; patient completes activity. [place] assists only prior to or following the activity. 4-Supervision or Touching Assistance-helper provides verbal cues and/or touching/steadying and/or contact guard assistance as patient completes activity. Assistance may be provided throughout the activity or intermittently. 3-Partial/Moderate Assistance-helper does LESS THAN HALF the effort. [place] lifts, holds or supports trunk or limbs, but provides less than half the effort. 2-Substantial/Maximal Assistance-helper does MORE THAN HALF the effort. [place] lifts or holds trunk or limbs and provides more than half the effort. 2-Bhvorzeqf-oxrxdu does ALL the effort. Patient does none of the effort to complete the activity. Or, the assistance of 2 or more helpers is required for the patient to complete the activity. If activity was not attempted, code reason: 7-Patient Refused. 9-Not Applicable-not attempted and the patient did not perform the activity before the current illness, exacerbation or injury. 10-Not Attempted due to Environmental Limitations-(lack of equipment, weather restraints, etc.). 88-Not Attempted due to Medical Conditions or Safety Concerns. sit to stand and SPT recliner to bed with 4-5 small steps mod assist Weight Bearing Right Lower Extremity: Right Full Weight Bearing Left Lower Extremity: Left Full Weight Bearing Patient is cleared medically to bear weight through bilateral LEs, however due to prolonged illness and bed rest, patients LE's very weak and plantarflexion contractures bilaterally Gait Training 5-6 small steps side ways to bed from recliner mod assist in dance fashion. Exercises Supine Ex: Ankle pumps, Straight leg raise Supine Reps: 5 hamstring and heel cord stretches 5 x 20 sec, pt. instructed in use of gait belt for self stretches Assessment Current Status: Good Progress PT Short Term Goals Short Term Goals Time Frame: Apr 20, 2021 Roll Left & Right: 4 Sit to lyin Lying to sitting on side of be: 4 Sit to stand: 3 Chair/zne-ue-fiyec transfer: 3 Toilet transfer: 3 Car transfer: 3 Walk 10 feet: 2 Walk 50 feet with two turns: 1 Walk 150 feet: 1 Does pt use a wc or scooter: Yes Wheel 50ft w/2 turns: 5 Wheel 150 feet: 5 Type: Manual PT [facility] Goals Paratransit Driver Goals PT Paratransit Driver Goals Time Frame: May 18, 2021 Roll Left & Right (QC): 6 Sit to Lying (QC): 6 Lying-Sitting on Side/Bed(QC): 6 Sit to Stand (QC): 4 Chair/Hxj-wq-Oviwt Xfer(QC): 4 Toilet Transfer (QC): 4 Car Transfer (QC): 4 Does the Patient Walk: Yes Walk 10 feet (QC): 3 Walk 50ft with 2 Turns (QC): 3 Walk 150 ft (QC): 3 Walking 10ft on Uneven Surface: 3 1 Step (curb) (QC): 2 4 Steps (QC): 2 12 Steps (QC): 88 Picking up an Object (QC): 3 Does the Pt use WC or Scooter?: Yes Wheel 50 feet with 2 turns (QC: 6 Type: Manual Wheel 150 feet: 6 Type: Manual (6) PT Plan Treatment/Plan Treatment Plan: Continue Plan of Care Treatment Plan: Bed Mobility, Education, Functional Activity John Paul, Functional Strength, Group Therapy, Gait, Safety, Therapeutic Exercise, Transfers Treatment Duration: May 18, 2021 Frequency: At least 5 of 7 days/Wk (IRF) Estimated Hrs Per Day: 1.5 hours per day Patient and/or Family Agrees t: Yes Safety Risks/Education Patient Education: Transfer Techniques, Correct Positioning, Disease Process Teaching Recipient: Patient Teaching Methods: Demonstration, Discussion Response to Teaching: Verbalize Understanding, Return Demonstration, Reinforcement Needed Time/GCodes Time In: 1235 Time Out: 1305 Total Billed Treatment Time: 30 Total Billed Treatment 1,FA15m,EX15m KRISSY SHEPHERD TOOLING ENGINEER Apr 25, 2021 13:10
[2021-04-25 20:21] VITALS: BP 117/62
[2021-04-25] MEDS: MELATONIN 10 MG TABLET PO SCH (21:21)
[2021-04-25] MEDS: TOLTERODINE LA 4 MG (DETROL) CAP PO SCH (21:21)
[2021-04-26] MEDS: MULTIVIT W/MINERALS TAB (THERAGRAN M) PO SCH (06:13)
[2021-04-26] MEDS: VENlafaxine XR 75 MG (EFFEXOR XR) CAP PO SCH (06:13)
[2021-04-26] MEDS: CEFEPIME INJECTION 2,000 MG in NS (IVPB) 50 ML IV SCH ×3 (06:13→21:42)
[2021-04-26] MEDS: CATHETER FLUSH 10 ML SYR IV SCH ×3 (06:13→21:43)
[2021-04-26 07:13] VITALS: BP 88/51
[2021-04-26] MEDS: ONDANSETRON 4 MG (ZOFRAN) ORAL DISSOLVE TAB PO PRN ×2 (07:19→17:29)
[2021-04-26] MEDS: HYDROcodone/APAP 7.5 MG/325 MG (LORTAB, LORCET PLUS) TABLET PO SCH ×4 (07:20→21:43)
[2021-04-26] MEDS: APIXABAN 5 MG (ELIQUIS) TABLET PO SCH ×2 (07:20→21:43)
[2021-04-26] MEDS: OXYBUTYNIN (DITROPAN) 5 MG TAB PO SCH ×3 (07:20→21:43)
[2021-04-26] MEDS: SERTRALINE 50 MG (ZOLOFT) TABLET PO SCH (07:20)
[2021-04-26] MEDS: FERROUS SULF 325 MG (IRON) TAB PO SCH (07:21)
[2021-04-26] MEDS: ATENOLOL 25 MG (TENORMIN) TAB PO SCH ×3 (07:21→21:43)
[2021-04-26] MEDS: LACTOBACILLUS ACIDOPHILUS (PROBIOTIC) CAPSULE PO SCH ×3 (07:21→17:29)
[2021-04-26] MEDS: MESALAMINE 250 MG (PENTASA) CAP PO SCH ×3 (07:21→21:43)
[2021-04-26] MEDS: polyethylene glycoL POWDER 17 GM (MIRALAX) PACK PO SCH ×2 (08:02→19:04)
--- NOTE | 2021-04-26 09:00 | Physical Therapy Daily Note ---
PT Daily Note-Current Subjective Pt. and present for education and skills training pre DC. very supportive and participated well. Pt. had no c/o except fatigue with activity today. Pt. shares that her greatest concern is that she does not want her or sons to be responsible for her toileting care in any way except perhaps to TRF to from. Pain Location: No Pain Reported Mental Status Patient Orientation: Normal For Age Attachments: Fernandez Catheter, Other-See Comments ([place]) Transfers SCALE: Activities may be completed with or without assistive devices. 9-Hdizlgohzp-tiyyppz completes the activity by him/herself with no assistance from a helper. 5-Set-up or Clean-up Assistance-helper sets up or cleans up; patient completes activity. [place] assists only prior to or following the activity. 4-Supervision or Touching Assistance-helper provides verbal cues and/or touching/steadying and/or contact guard assistance as patient completes activity. Assistance may be provided throughout the activity or intermittently. 3-Partial/Moderate Assistance-helper does LESS THAN HALF the effort. [place] lifts, holds or supports trunk or limbs, but provides less than half the effort. 2-Substantial/Maximal Assistance-helper does MORE THAN HALF the effort. [place] lifts or holds trunk or limbs and provides more than half the effort. 5-Wpzwqejde-dzjvmw does ALL the effort. Patient does none of the effort to complete the activity. Or, the assistance of 2 or more helpers is required for the patient to complete the activity. If activity was not attempted, code reason: 7-Patient Refused. 9-Not Applicable-not attempted and the patient did not perform the activity before the current illness, exacerbation or injury. 10-Not Attempted due to Environmental Limitations-(lack of equipment, weather restraints, etc.). 88-Not Attempted due to Medical Conditions or Safety Concerns. Roll Left & Right (QC): 6 Sit to Lying (QC): 6 Lying to Sitting/Side of Bed(Q: 6 Sit to Stand (QC): 3 Chair/Tav-xi-Ubvxb Xfer(QC): 3 Toilet Transfer (QC): 3 and pt. were taught regarding donning and use of gait belt. Demonstration /education in technique and precautions for TRFs with slide board, squat pivot TRFs and stand pivot TRFs with demonstrating successful technique each trial. Weight Bearing Right Lower Extremity: Right Full Weight Bearing Left Lower Extremity: Left Full Weight Bearing Patient is cleared medically to bear weight through bilateral LEs, however due to prolonged illness and bed rest, patients LE's very weak and plantarflexion contractures bilaterally Wheelchair Training Does the Pt Use a Wheelchair?: Yes Type of Wheelchair: Manual braking and removal of arm rests was practiced and understands the importance of this Exercises Supine Ex: Ankle pumps, Straight leg raise Supine Reps: 5 hamstring and heel cord stretches were demonstrated to 5 reps at 20 sec each. Treatments PT OT co Rx this date secondary to complexity of pts issues . U&L extremity coordination [place] funct activities and need for 2 skilled clinicians for education for safe funct mobility Assessment Current Status: Good Progress pt. fatigues quickly but gives full effort and thinks through her needs for DC. Pt. and are also aware of her equipment needs and are pursuing this already. PT Short Term Goals Short Term Goals Time Frame: Apr 20, 2021 Roll Left & Right: 4 Sit to lyin Lying to sitting on side of be: 4 Sit to stand: 3 Chair/vmv-fy-hrrnv transfer: 3 Toilet transfer: 3 Car transfer: 3 Walk 10 feet: 2 Walk 50 feet with two turns: 1 Walk 150 feet: 1 Does pt use a wc or scooter: Yes Wheel 50ft w/2 turns: 5 Wheel 150 feet: 5 Type: Manual PT Pipe Maker Goals Pipe Maker Goals PT [facility] Goals Time Frame: May 18, 2021 Roll Left & Right (QC): 6 Sit to Lying (QC): 6 Lying-Sitting on Side/Bed(QC): 6 Sit to Stand (QC): 4 Chair/Bgc-we-Ssvqa Xfer(QC): 4 Toilet Transfer (QC): 4 Car Transfer (QC): 4 Does the Patient Walk: Yes Walk 10 feet (QC): 3 Walk 50ft with 2 Turns (QC): 3 Walk 150 ft (QC): 3 Walking 10ft on Uneven Surface: 3 1 Step (curb) (QC): 2 4 Steps (QC): 2 12 Steps (QC): 88 Picking up an Object (QC): 3 Does the Pt use WC or Scooter?: Yes Wheel 50 feet with 2 turns (QC: 6 Type: Manual Wheel 150 feet: 6 Type: Manual (6) PT Plan Treatment/Plan Treatment Plan: Continue Plan of Care Treatment Plan: Bed Mobility, Education, Functional Activity John Paul, Functional Strength, Group Therapy, Gait, Safety, Therapeutic Exercise, Transfers Treatment Duration: May 18, 2021 Frequency: At least 5 of 7 days/Wk (IRF) Estimated Hrs Per Day: 1.5 hours per day Patient and/or Family Agrees t: Yes Safety Risks/Education Patient Education: Transfer Techniques, Correct Positioning, Instructions to Caregiver, Disease Process, Safety Issues Teaching Recipient: Patient, Primary Caregiver, Family Teaching Methods: Demonstration, Discussion Response to Teaching: Verbalize Understanding, Return Demonstration, Reinforcement Needed Time/GCodes Time In: 800 Time Out: 900 Total Billed Treatment Time: 60 Total Billed Treatment 1,EX10m,FA50m (PT OT co Rx 60m) KRISSY SHEPHERD GREENS OR GROUNDS SUPERINTENDENT Apr 26, 2021 09:00
--- NOTE | 2021-04-26 09:06 | Occupational Ther Daily Note ---
OT Current Status-Daily Note Subjective Pt and spouse agreeable to family training. Co-treat with PT needed due to weakness, decreased activity tolerance, high fall risk, as well as need for addressing multiple areas with 2 different professionals. Appearance Left sitting upright in recliner, all needs within reach. Mental Status/Objective Patient Orientation: Person, Place, Time, Situation Attachments: Drains, Fernandez Catheter, IV wound vac ADL-Treatment Therapy Code Descriptions/Definitions Functional [place] Measure: 0=Not Assessed/NA 4=Minimal Assistance 1=Total Assistance 5=Supervision or Setup 2=Maximal Assistance 6=Modified [place] 3=Moderate Assistance 7=Complete IndependenceSCALE: Activities may be completed with or without assistive devices. 3-Ckdknewyfa-dquzdes completes the activity by him/herself with no assistance from a helper. 5-Set-up or Clean-up Assistance-helper sets up or cleans up; patient completes activity. [place] assists only prior to or following the activity. 4-Supervision or Touching Assistance-helper provides verbal cues and/or touching/steadying and/or contact guard assistance as patient completes activity. Assistance may be provided throughout the activity or intermittently. 3-Partial/Moderate Assistance-helper does LESS THAN HALF the effort. [place] lifts, holds or supports trunk or limbs, but provides less than half the effort. 2-Substantial/Maximal Assistance-helper does MORE THAN HALF the effort. [place] lifts or holds trunk or limbs and provides more than half the effort. 5-Ddccqkism-fxqcfs does ALL the effort. Patient does none of the effort to complete the activity. Or, the assistance of 2 or more helpers is required for the patient to complete the activity. If activity was not attempted, code reason: 7-Patient Refused. 9-Not Applicable-not attempted and the patient did not perform the activity before the current illness, exacerbation or injury. 10-Not Attempted due to Environmental Limitations-(lack of equipment, weather restraints, etc.). 88-Not Attempted due to Medical Conditions or Safety Concerns. Eating (QC): 6 Oral Hygiene (QC): 6 Upper Body Dressing (QC): 5 Lower Body Dressing (QC): 4 Toilet Transfer (QC): 3 Spouse Mono present for family training. Dressing tasks completed at bed level. Pt able to utilize cross over method while in supine, yet still requires use of mineral technologist to fully reach over toes. Brief donned over hips in supine while bridging and rolling R/L. Extra time and short rest breaks required secondary to fatigue and nausea, but no physical assist needed. OT educated spouse on ADL set up and that pt may needing minimal assistance at times secondary to fatigue/nausea levels. Pt completed multiple transfers including squat, stand, and slide board transfers to different surfaces/heights with assisting at times. Education provided on body mechanics, set up, and proper technique. Post instruction, able to demonstrate ability to assist patient with mod a and min a from second person for safety only. Pt/Mono verbalizes comfort post training. Discussion also on home set up and equipment that may need to be purchased prior to d/c. Education OT Patient Education: Correct positioning, Disease process, Energy conservation, Exercise program, Instructions to caregiver, Modified ADL techniques, Progress toward Goal/Update tx plan, Purpose of tx/functional activities, Reviewed precautions, Rehab process, Safety issues, Transfer techniques, Use of adapted equipment, W/C management Teaching Recipient: Patient, Family Teaching Methods: Demonstration, Discussion Response to Teaching: Verbalize Understanding, Return Demonstration OT Short Term Goals Short Term Goals Time Frame: Apr 20, 2021 Eatin Oral hygiene: 5 Toileting hygiene: 2 Shower/bathe self: 2 Upper body dressin Lower body dressin Putting on/taking off footwear: 2 OT Electrical Drafter Goals Electrical Drafter Goals Time Frame: May 04, 2021 Eating (QC): 6 Oral Hygiene (QC): 5 Toileting Hygiene (QC): 4 Shower/Bathe Self (QC): 4 Upper Body Dressing (QC): 5 Lower Body Dressing (QC): 4 On/Off Footwear (QC): 4 1=Demonstrate adherence to instructed precautions during ADL tasks. 2=Patient will verbalize/demonstrate understanding of assistive devices/modifications for ADL. 3=Patient will improve strength/tolerance for activity to enable patient to perform ADL's. OT Education/Plan Problem List/Assessment Assessment: Decreased Activ Tolerance, Decreased UE Strength, Impaired Funct Balance, Impaired I ADL's, Impaired Self-Care Skills Discharge Recommendations Plan/Recommendations: Continue POC Equpiment Recommendations-D/C: Rails on Tub/Shower, Toilet Riser with Rails, Owner Operator Tanker Truck Driver, Bedside Commode, Rails on Toilet Treatment Plan/Plan of Care Treatment,Training & Education: Yes Patient would benefit from OT for education, treatment and training to promote independence in ADL's, mobility, safety and/or upper extremity function for ADL's. Plan of Care: ADL Retraining, Caregiver Training, Functional Mobility, Group Exercise/Act as Ind, UE Funct Exercise/Act, UE Neuromus Re-Ed/Coord, W/C Management Training Treatment Duration: May 04, 2021 Frequency: At least 5 of 7 days/Wk (IRF) Estimated Hrs Per Day: 1.5 hours per day Agreement: Yes Rehab Potential: Fair Time/GCodes Start Time: 07:37 Stop Time: 09:07 Total Time Billed (hr/min): 90 Billed Treatment Time 1 visit ADL x3 (50 min) FA x3 (40 min) Latoya Becker OT Apr 26, 2021 09:06
--- NOTE | 2021-04-26 10:46 | PM&R Progress Note ---
Subjective HPI/CC On Admission Date Seen by Provider: Apr 26, 2021 Time Seen by Provider: 11:00 Subjective/Events-last exam 04/26/2021: Patient doing well Getting up to go to the bathroom She wants Fernandez catheter out We will work on incontinence due to wound proximity 04/25/21: Pt doing well Bowel regimen will be maintained Getting up to the commode she had a vasovagal syncopal episode She needs to sit up more and she will do that Very slow recovery 04/24/2021: Patient doing well Working on fecal incontinence Bowel routine is the priority today Check meds and labs 04/23/21: Pt doing well Wound vac will be changed today Fecal incontinence noted Bowel routine will be implemented 04/22/2021: Patient doing well Bowels move this morning with fecal incontinence Increase fluid intake is encouraged 04/21/21: Patient doing well Family visited with children Standing and pivoting very well 04/20/2021: Pt doing really well Wound vac was changed IV Zofran given every morning Changed her Scopolamine patch Children will visit tomorrow 04/19/2021: Pt stood and walked two steps today Wedge in left foot in shoe for foot drop has been helpful Zofran IV will be given every morning 04/18/2021: Pt doing well Catheter will be kept until decubitus ulcer heals BNO suppositories will be ordered for bladder spasms IV iron infusions completed Left foot drop is improving 04/17/2021: Pt doing much better Foot drop will be worked on today Getting up and around today Checked meds and labs Nausea improved 04/16/2021: Pt having some nausea Wound vac came off yesterday, replacing that today IV Zofran given for nausea Britneydee will restart the wound vac Consulting urology for bladder spasms 04/15/2021: Patient doing very well Visitors today No pain is reported Wound VAC in place Fecal incontinence continues 04/14/2021: Patient doing very well today Stood with a walker today at bedside No pain is reported Wound VAC in place 04/13/21: Patient doing well Scop patch resolving the nausea Pain controlled Wound vac changed No issues 04/12/2021: Scopolamine patch working well Patient doing well Wound VAC maintained Check meds and labs No pain Eating and drinking well Scopolamine patch working well 04/11/2021: Patient doing well Fecal incontinence again last night Participating in therapy Wound VAC changed 04/10/2021: Patient doing well No major concerns PICC line dysfunction will be assessed Foot drop will be addressed with AFO Incontinent of bowel last night 04/09/2021: Patient doing really well Labs stable Hemoglobin 8.6 Wound VAC working well Getting ready to go the parallel bars with physical therapy 04/08/2021: Patient doing very well Was up 4 times yesterday out of bed Loose stools only has occurred once May need to use Questran as needed Check meds labs 04/07/2021: Patient doing very well We will get up in chair for lunch Hemoglobin 8.6 Bowels are moving now so on verge of constipation will change Questran to as needed no pain is reported Wound VAC tolerated well Review of Systems General: Fatigue Objective Exam Vital Signs Vital Signs Date Time Temp Pulse Resp B/P (MAP) Pulse Ox O2 Delivery O2 Flow Rate FiO2 04/26/21 20:43 36.4 97 16 103/73 (83) 97 Room Air 04/23/21 06:47 0.00 Capillary Refill : General Appearance: No Apparent Distress, WD/WN, Chronically ill, Other (pale, chronically ill) HEENT: PERRL/EOMI, Normal ENT Inspection, Pharynx Normal Neck: Full Range of Motion, Normal Inspection, Non Tender, Supple, Carotid Bruit Respiratory: Chest Non Tender, Lungs Clear, Normal Breath Sounds, No Accessory Muscle Use, No Respiratory Distress Cardiovascular: Regular Rate, Rhythm, No Edema, No Gallop, No JVD, No Murmur, Normal Peripheral Pulses Gastrointestinal: Normal Bowel Sounds, No Organomegaly, No Pulsatile Mass, Non Tender, Soft Back: Normal Inspection, No CVA Tenderness, No Vertebral Tenderness Extremity: Normal Capillary Refill, Normal Inspection, Normal Range of Motion, Non Tender, No Calf Tenderness, No Pedal Edema Neurologic/Psychiatric: Alert, Oriented x3, No Motor/Sensory Deficits, shape hand II-XII Norm as Tested, Depressed Affect, Motor Weakness (3/5 upper 1/5 lower) Skin: Normal Color, Warm/Dry, Other (coccyx decubitus ulcer with wound vac) Lymphatic: No Adenopathy Results/Procedures Lab Patient resulted labs reviewed. FIM Transfers Therapy Code Descriptions/Definitions Functional [place] Measure: 0=Not Assessed/NA 4=Minimal Assistance 1=Total Assistance 5=Supervision or Setup 2=Maximal Assistance 6=Modified [place] 3=Moderate Assistance 7=Complete IndependenceSCALE: Activities may be completed with or without assistive devices. 0-Bqapxsqghu-bhmvpkg completes the activity by him/herself with no assistance from a helper. 5-Set-up or Clean-up Assistance-helper sets up or cleans up; patient completes activity. [place] assists only prior to or following the activity. 4-Supervision or Touching Assistance-helper provides verbal cues and/or touching/steadying and/or contact guard assistance as patient completes activi ty. Assistance may be provided throughout the activity or intermittently. 3-Partial/Moderate Assistance-helper does LESS THAN HALF the effort. [place] lifts, holds or supports trunk or limbs, but provides less than half the effort. 2-Substantial/Maximal Assistance-helper does MORE THAN HALF the effort. [place] lifts or holds trunk or limbs and provides more than half the effort. 8-Wpwenboaj-juqhis does ALL the effort. Patient does none of the effort to complete the activity. Or, the assistance of 2 or more helpers is required for the patient to complete the activity. If activity was not attempted, code reason: 7-Patient Refused. 9-Not Applicable-not attempted and the patient did not perform the activity before the current illness, exacerbation or injury. 10-Not Attempted due to Environmental Limitations-(lack of equipment, weather restraints, etc.). 88-Not Attempted due to Medical Conditions or Safety Concerns. Roll Left to Right (QC): 6 Sit to Lying (QC): 6 Sit to Stand (QC): 3 Chair/Kep-ws-Abggq Xfer(QC): 3 Car Transfer (QC): 1 Gait Training Does the Patient Walk?: Yes Distance: 5'x2 Walk 10 feet (QC): 88 Walk 50 ft with 2 Turns(QC): 88 Walk 150 ft (QC): 88 Walking 10ft/uneven surface-QC: 88 Gait Persons Needed: 1 Gait Assistive Device: FWW Wheelchair Training Does the Pt Use a Wheelchair?: Yes Distance: 150 Wheel 50 ft with 2 turns (QC): 4 Wheel 150 ft (QC): 3 Type of Wheelchair: Manual Stair Training #of Steps: 0 1 Step (curb) (QC): 88 4 Steps (QC): 88 12 Steps (QC): 88 Balance Picking up an Object (QC): 88 ADL-Treatment Eating (QC): 6 Oral Hygiene (QC): 6 Shower/Bathe Self (QC): 3 (min) Upper Body Dressing (QC): 5 Lower Body Dressing (QC): 4 On/Off Footwear (QC): 3 Toileting Hygiene (QC): 1 Toilet Transfer (QC): 3 Assessment/Plan Assessment and Plan Assess & Plan/Chief Complaint Assessment: Post Covid with deconditioning s/p severe sepsis Diarrhea Sacral decubitus ulcer Hypokalemia Anemia previous transfusion Anxiety and Depression Fernandez catheter 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 Ongoing nausea improved Scopolamine patch Plan: IV abx Wound vac PT OT Depression meds OAC 04/07/2021: Wound VAC Out of bed 04/08/2021: Out of bed Wound VAC 04/09/2021: Supportive care Dramatic improvement already 04/10/2021: Supportive care Fernandez catheter required although it is an infection risk 04/11/2021: Supportive care Wound VAC appreciated 04/12/2021: Scopolamine patch Wound VAC 04/13/21: Scop patch Monitor pain 04/14/2021: Supportive care Wound VAC 04/14/2021: Wound VAC Fecal incontinence management 04/15/2021: Wound VAC management Continue depression treatment 04/16/2021: Supportive care Change wound VAC 04/17/2021: Appreciate wound care Cefepime 04/18/2021: Continue aggressive PT Wound VAC 04/19/2021: Supportive care Hold potassium to see if that helps with nausea 04/20/2021: Supportive care Children will visit tomorrow 04/21/2021: Supportive care Family visiting has helped her morale 04/22/2021: Supportive care Wound VAC management 04/23/2021: Supportive care Wound VAC management 04/24/2021: Supportive care Fecal incontinence management 04/25/21: Fecal incontinence training 04/26/2021: Fecal incontinence management Fernandez catheter may be able to be discontinued (1) Post covid-19 condition, unspecified Status: Chronic (2) Sacral decubitus ulcer, stage IV Status: Chronic (3) Severe sepsis Status: Acute (4) UTI (urinary tract infection) TERRA EDWARDS DO Apr 26, 2021 10:46
[2021-04-26] MEDS: SCOPOLAMINE 1.5 MG (TRANSDERM-SCOP) PATCH TD SCH (11:45)
[2021-04-26] MEDS: SCOPOLAMINE PATCH REMOVAL TP SCH (11:47)
--- NOTE | 2021-04-26 13:11 | Physical Therapy Daily Note ---
PT Daily Note-Current Subjective Pt. asleep in bed on her side with lunch sitting on tray not eaten. Agrees to getting up for lunch and some exercise Pain Numeric Pain Scale: 4 Location: Medial Location Body Site: Sacrum Pain Description: Pressure Mental Status Patient Orientation: Normal For Age Attachments: Other-See Comments ([place]) Transfers SCALE: Activities may be completed with or without assistive devices. 6-Wfnhkxwyhu-xysebgb completes the activity by him/herself with no assistance from a helper. 5-Set-up or Clean-up Assistance-helper sets up or cleans up; patient completes activity. [place] assists only prior to or following the activity. 4-Supervision or Touching Assistance-helper provides verbal cues and/or touching/steadying and/or contact guard assistance as patient completes activity. Assistance may be provided throughout the activity or intermittently. 3-Partial/Moderate Assistance-helper does LESS THAN HALF the effort. [place] lifts, holds or supports trunk or limbs, but provides less than half the effort. 2-Substantial/Maximal Assistance-helper does MORE THAN HALF the effort. [place] lifts or holds trunk or limbs and provides more than half the effort. 6-Zgealakci-ponntk does ALL the effort. Patient does none of the effort to complete the activity. Or, the assistance of 2 or more helpers is required for the patient to complete the activity. If activity was not attempted, code reason: 7-Patient Refused. 9-Not Applicable-not attempted and the patient did not perform the activity before the current illness, exacerbation or injury. 10-Not Attempted due to Environmental Limitations-(lack of equipment, weather restraints, etc.). 88-Not Attempted due to Medical Conditions or Safety Concerns. pt. scooted up in bed indep, pt. TRF sup to side to sit and sit to sup indep Weight Bearing Right Lower Extremity: Right Full Weight Bearing Left Lower Extremity: Left Full Weight Bearing Patient is cleared medically to bear weight through bilateral LEs, however due to prolonged illness and bed rest, patients LE's very weak and plantarflexion contractures bilaterally Exercises Supine Ex: Ankle pumps (HC ), Rolling, Heel Slides, Hip abd/add Supine Reps: 10 Seated Therapy Exercises: Long arc quads Seated Reps: 10 Treatments positioning for meal, sup and sit ther ex LEs Assessment Current Status: Good Progress tired, slow moving PT Short Term Goals Short Term Goals Time Frame: Apr 20, 2021 Roll Left & Right: 4 Sit to lyin Lying to sitting on side of be: 4 Sit to stand: 3 Chair/icv-ip-zgkdn transfer: 3 Toilet transfer: 3 Car transfer: 3 Walk 10 feet: 2 Walk 50 feet with two turns: 1 Walk 150 feet: 1 Does pt use a wc or scooter: Yes Wheel 50ft w/2 turns: 5 Wheel 150 feet: 5 Type: Manual PT Chaplain Resident Goals Chaplain Resident Goals PT Chaplain Resident Goals Time Frame: May 18, 2021 Roll Left & Right (QC): 6 Sit to Lying (QC): 6 Lying-Sitting on Side/Bed(QC): 6 Sit to Stand (QC): 4 Chair/Dws-il-Rbhjy Xfer(QC): 4 Toilet Transfer (QC): 4 Car Transfer (QC): 4 Does the Patient Walk: Yes Walk 10 feet (QC): 3 Walk 50ft with 2 Turns (QC): 3 Walk 150 ft (QC): 3 Walking 10ft on Uneven Surface: 3 1 Step (curb) (QC): 2 4 Steps (QC): 2 12 Steps (QC): 88 Picking up an Object (QC): 3 Does the Pt use WC or Scooter?: Yes Wheel 50 feet with 2 turns (QC: 6 Type: Manual Wheel 150 feet: 6 Type: Manual (6) PT Plan Treatment/Plan Treatment Plan: Continue Plan of Care Treatment Plan: Bed Mobility, Education, Functional Activity John Paul, Functional Strength, Group Therapy, Gait, Safety, Therapeutic Exercise, Transfers Treatment Duration: May 18, 2021 Frequency: At least 5 of 7 days/Wk (IRF) Estimated Hrs Per Day: 1.5 hours per day Patient and/or Family Agrees t: Yes Safety Risks/Education Patient Education: Transfer Techniques, Correct Positioning, Disease Process, Safety Issues Teaching Recipient: Patient Teaching Methods: Demonstration, Discussion Response to Teaching: Verbalize Understanding, Return Demonstration, Reinforcement Needed discussed AM visit regarding home training with , pt feels this went well Time/GCodes Time In: 1235 Time Out: 1305 Total Billed Treatment Time: 30 Total Billed Treatment 1,FA20m,EX10m KRISSY SHEPHERD TOOL MACHINE SETUP OPERATOR Apr 26, 2021 13:11
[2021-04-26 20:43] VITALS: BP 103/73
[2021-04-26] MEDS: TOLTERODINE LA 4 MG (DETROL) CAP PO SCH (21:43)
[2021-04-26] MEDS: MELATONIN 10 MG TABLET PO SCH (21:43)
[2021-04-27] MEDS: ONDANSETRON 4 MG/2 ML (SDV) Z0FRAN IVP PRN (06:06)
[2021-04-27] MEDS: CEFEPIME INJECTION 2,000 MG in NS (IVPB) 50 ML IV SCH ×3 (06:06→21:46)
[2021-04-27] MEDS: CATHETER FLUSH 10 ML SYR IV SCH ×3 (06:06→21:47)
[2021-04-27] MEDS: VENlafaxine XR 75 MG (EFFEXOR XR) CAP PO SCH (06:49)
[2021-04-27] MEDS: MULTIVIT W/MINERALS TAB (THERAGRAN M) PO SCH (06:49)
[2021-04-27 07:35] VITALS: BP 111/55
[2021-04-27] MEDS: FERROUS SULF 325 MG (IRON) TAB PO SCH (08:12)
[2021-04-27] MEDS: APIXABAN 5 MG (ELIQUIS) TABLET PO SCH ×2 (08:12→21:43)
[2021-04-27] MEDS: MESALAMINE 250 MG (PENTASA) CAP PO SCH ×3 (08:12→21:43)
[2021-04-27] MEDS: ATENOLOL 25 MG (TENORMIN) TAB PO SCH ×2 (08:12→21:43)
[2021-04-27] MEDS: OXYBUTYNIN (DITROPAN) 5 MG TAB PO SCH ×3 (08:12→21:43)
[2021-04-27] MEDS: LACTOBACILLUS ACIDOPHILUS (PROBIOTIC) CAPSULE PO SCH ×3 (08:12→17:13)
[2021-04-27] MEDS: SERTRALINE 50 MG (ZOLOFT) TABLET PO SCH (08:13)
[2021-04-27] MEDS: HYDROcodone/APAP 7.5 MG/325 MG (LORTAB, LORCET PLUS) TABLET PO SCH ×4 (08:13→21:43)
[2021-04-27] MEDS: polyethylene glycoL POWDER 17 GM (MIRALAX) PACK PO SCH ×2 (08:13→21:47)
--- NOTE | 2021-04-27 09:07 | Physical Therapy Daily Note ---
PT Daily Note-Current Subjective Pt. agrees to Rx but still in bed and eating brkfst in sidelying. Pt. admits they awaken her at 730 or so when they bring brkfst but she goes back to sleep bc she cant seem to fall asleep til 3 am or so. Pain Location: No Pain Reported Mental Status Patient Orientation: Normal For Age Attachments: Fernandez Catheter, Other-See Comments ([place]) Transfers SCALE: Activities may be completed with or without assistive devices. 8-Vdoixkgorr-uwjmipu completes the activity by him/herself with no assistance from a helper. 5-Set-up or Clean-up Assistance-helper sets up or cleans up; patient completes activity. [place] assists only prior to or following the activity. 4-Supervision or Touching Assistance-helper provides verbal cues and/or touching/steadying and/or contact guard assistance as patient completes activity. Assistance may be provided throughout the activity or intermittently. 3-Partial/Moderate Assistance-helper does LESS THAN HALF the effort. [place] lifts, holds or supports trunk or limbs, but provides less than half the effort. 2-Substantial/Maximal Assistance-helper does MORE THAN HALF the effort. [place] lifts or holds trunk or limbs and provides more than half the effort. 9-Lxmgpssyy-hyfxwv does ALL the effort. Patient does none of the effort to complete the activity. Or, the assistance of 2 or more helpers is required for the patient to complete the activity. If activity was not attempted, code reason: 7-Patient Refused. 9-Not Applicable-not attempted and the patient did not perform the activity before the current illness, exacerbation or injury. 10-Not Attempted due to Environmental Limitations-(lack of equipment, weather restraints, etc.). 88-Not Attempted due to Medical Conditions or Safety Concerns. Roll Left & Right (QC): 6 Sit to Lying (QC): 6 Lying to Sitting/Side of Bed(Q: 6 Sit to Stand (QC): 3 Chair/Vic-ur-Vgzik Xfer(QC): 3 Weight Bearing Right Lower Extremity: Right Full Weight Bearing Left Lower Extremity: Left Full Weight Bearing Patient is cleared medically to bear weight through bilateral LEs, however due to prolonged illness and bed rest, patients LE's very weak and plantarflexion contractures bilaterally Gait Training Does the Patient Walk?: Yes Gait Assistive Device: Parallel Bars 5steps x 2 in // bars, mod assist, assist to stablize left ankle and w/c close behind as pt. fatigues quickly Wheelchair Training Does the Pt Use a Wheelchair?: Yes Wheel 50 ft with 2 turns (QC): 5 Wheel 150 ft (QC): 5 Type of Wheelchair: Manual pt. demonstrates indep to remove arm rests and apply brakes but needs occas reminders. Pt. needs instruct to manuever turns to protect herself and objects . pt also instructed to use L foot and leg as pt. tends to keep in inverted and tucked under w/c Exercises Seated Therapy Exercises: Ankle pumps, Long arc quads Seated Reps: 6 HS and HC stretches Treatments co Rx PT OT for showering, dressing , TRFs, w/c mob. stance wt shift, and gait trials coordinating U&L extr funct mob and safety Assessment Current Status: Good Progress pt. needs motivated to apply herself for Rx, sluggish and a bit resistant cruzito in mornings PT Short Term Goals Short Term Goals Time Frame: Apr 20, 2021 Roll Left & Right: 4 Sit to lyin Lying to sitting on side of be: 4 Sit to stand: 3 Chair/yxj-ly-bojvn transfer: 3 Toilet transfer: 3 Car transfer: 3 Walk 10 feet: 2 Walk 50 feet with two turns: 1 Walk 150 feet: 1 Does pt use a wc or scooter: Yes Wheel 50ft w/2 turns: 5 Wheel 150 feet: 5 Type: Manual PT Director Of Strategic Communications Goals Director Of Strategic Communications Goals PT Senior Care Goals Time Frame: May 18, 2021 Roll Left & Right (QC): 6 Sit to Lying (QC): 6 Lying-Sitting on Side/Bed(QC): 6 Sit to Stand (QC): 4 Chair/Wag-by-Fzjvo Xfer(QC): 4 Toilet Transfer (QC): 4 Car Transfer (QC): 4 Does the Patient Walk: Yes Walk 10 feet (QC): 3 Walk 50ft with 2 Turns (QC): 3 Walk 150 ft (QC): 3 Walking 10ft on Uneven Surface: 3 1 Step (curb) (QC): 2 4 Steps (QC): 2 12 Steps (QC): 88 Picking up an Object (QC): 3 Does the Pt use WC or Scooter?: Yes Wheel 50 feet with 2 turns (QC: 6 Type: Manual Wheel 150 feet: 6 Type: Manual (6) PT Plan Treatment/Plan Treatment Plan: Continue Plan of Care Treatment Plan: Bed Mobility, Education, Functional Activity John Paul, Functional Strength, Group Therapy, Gait, Safety, Therapeutic Exercise, Transfers Treatment Duration: May 18, 2021 Frequency: At least 5 of 7 days/Wk (IRF) Estimated Hrs Per Day: 1.5 hours per day Patient and/or Family Agrees t: Yes Safety Risks/Education Patient Education: Gait Training (pre gait), Transfer Techniques, Correct Positioning, W/C Management, Disease Process, Safety Issues Teaching Recipient: Patient Teaching Methods: Demonstration, Discussion Response to Teaching: Verbalize Understanding, Return Demonstration, Reinforcement Needed Time/GCodes Time In: 800 Time Out: 900 Total Billed Treatment Time: 60 Total Billed Treatment 1,FA60m,(60m co Rx) KRISSY SHEPHERD CUTTER HELPER Apr 27, 2021 09:07
--- NOTE | 2021-04-27 09:19 | Occupational Ther Daily Note ---
OT Current Status-Daily Note Subjective Denies pain. co-treat needed as pt requires 2 skilled clinicians due to weakness, decreased activity tolerance, high fall risk, as well as need for addressing multiple areas with 2 different professionals. Appearance Returned to supine, gas engine mechanic in at OT departure. Mental Status/Objective Patient Orientation: Person, Place, Time, Situation Attachments: Drains, Fernandez Catheter, IV wound vac ADL-Treatment Therapy Code Descriptions/Definitions Functional [place] Measure: 0=Not Assessed/NA 4=Minimal Assistance 1=Total Assistance 5=Supervision or Setup 2=Maximal Assistance 6=Modified [place] 3=Moderate Assistance 7=Complete IndependenceSCALE: Activities may be completed with or without assistive devices. 9-Twxjskqngv-eqqhpib completes the activity by him/herself with no assistance from a helper. 5-Set-up or Clean-up Assistance-helper sets up or cleans up; patient completes activity. [place] assists only prior to or following the activity. 4-Supervision or Touching Assistance-helper provides verbal cues and/or touching/steadying and/or contact guard assistance as patient completes activity. Assistance may be provided throughout the activity or intermittently. 3-Partial/Moderate Assistance-helper does LESS THAN HALF the effort. [place] lifts, holds or supports trunk or limbs, but provides less than half the effort. 2-Substantial/Maximal Assistance-helper does MORE THAN HALF the effort. [place] lifts or holds trunk or limbs and provides more than half the effort. 3-Uvzkppjyp-yhpxgp does ALL the effort. Patient does none of the effort to complete the activity. Or, the assistance of 2 or more helpers is required for the patient to complete the activity. If activity was not attempted, code reason: 7-Patient Refused. 9-Not Applicable-not attempted and the patient did not perform the activity before the current illness, exacerbation or injury. 10-Not Attempted due to Environmental Limitations-(lack of equipment, weather restraints, etc.). 88-Not Attempted due to Medical Conditions or Safety Concerns. Eating (QC): 4 Shower/Bathe Self (QC): 3 (min) Upper Body Dressing (QC): 5 Lower Body Dressing (QC): 2 Toileting Hygiene (QC): 2 Toilet Transfer (QC): 3 Pt eating at OT arrival. Continues to need encouragement and education on sitting upright when eating. Pt refuses this date to eat in sitting and continues to lay down to eat. Shower performed; 100% completed in sitting. Good recall on use of LHS to wash below knees. Pt able to perform lateral pelvic leans R/L to wash buttocks, min a for thoroughness. Pt sat in W/C to thread BLE's into brief with us of academic support coordinator, improved speed with task. Lower QC score only due to clothing management performed in standing vs at bed level. Pt stood at bed rail, dependent to pull brief over hips due to needing BUE support on railing. Min-mod a for standing balance once upright. Other Treatment Pt propelled w/c to/from therapy gym, improved tolerance this date. Only required 2 short rest breaks. OT/PT encouraging pt to perform w/c set up and manage all w/c pieces (brakes, arm rests, footrests, etc.) throughout sessions. Min-mod verbal cues still needed at times for preferred technique. Pt stood in parallel bars with min A, yet continues to have poor standing tolerance and unable to stand for longer than 1 minute. Encouragement and motivation needed to try and push through to meet goal of standing over a minute. Repetition of verbal/tactile cues on body posture when standing. Education OT Patient Education: Correct positioning, Energy conservation, Modified ADL techniques, Progress toward Goal/Update tx plan, Purpose of tx/functional ac tivities, Transfer techniques, Use of adapted equipment, W/C management Teaching Recipient: Patient Teaching Methods: Demonstration, Discussion Response to Teaching: Verbalize Understanding, Reinforcement Needed OT Short Term Goals Short Term Goals Time Frame: Apr 20, 2021 Eatin Oral hygiene: 5 Toileting hygiene: 2 Shower/bathe self: 2 Upper body dressin Lower body dressin Putting on/taking off footwear: 2 OT Chcf Goals Chcf Goals Time Frame: May 04, 2021 Eating (QC): 6 Oral Hygiene (QC): 5 Toileting Hygiene (QC): 4 Shower/Bathe Self (QC): 4 Upper Body Dressing (QC): 5 Lower Body Dressing (QC): 4 On/Off Footwear (QC): 4 1=Demonstrate adherence to instructed precautions during ADL tasks. 2=Patient will verbalize/demonstrate understanding of assistive devices/modifications for ADL. 3=Patient will improve strength/tolerance for activity to enable patient to perform ADL's. OT Education/Plan Problem List/Assessment Assessment: Decreased Activ Tolerance, Decreased UE Strength, Impaired Funct Ba lane, Impaired I ADL's, Impaired Self-Care Skills Discharge Recommendations Plan/Recommendations: Continue POC Treatment Plan/Plan of Care Treatment,Training & Education: Yes Patient would benefit from OT for education, treatment and training to promote independence in ADL's, mobility, safety and/or upper extremity function for ADL's. Plan of Care: ADL Retraining, Caregiver Training, Functional Mobility, Group Exercise/Act as Ind, UE Funct Exercise/Act, UE Neuromus Re-Ed/Coord, W/C Management Training Treatment Duration: May 04, 2021 Frequency: At least 5 of 7 days/Wk (IRF) Estimated Hrs Per Day: 1.5 hours per day Agreement: Yes Rehab Potential: Fair Time/GCodes Start Time: 07:45 Stop Time: 09:15 Total Time Billed (hr/min): 90 Billed Treatment Time 1 visit ADL x4 (60 min) FA x2 (30 min) Latoya Becker OT Apr 27, 2021 09:19
--- NOTE | 2021-04-27 11:19 | PM&R Progress Note ---
Subjective HPI/CC On Admission Date Seen by Provider: Apr 27, 2021 Time Seen by Provider: 11:20 Subjective/Events-last exam 04/27/2021: Patient doing well No major issues came for family training Working on bowel incontinence 04/26/2021: Patient doing well Getting up to go to the bathroom She wants Fernandez catheter out We will work on incontinence due to wound proximity 04/25/21: Pt doing well Bowel regimen will be maintained Getting up to the commode she had a vasovagal syncopal episode She needs to sit up more and she will do that Very slow recovery 04/24/2021: Patient doing well Working on fecal incontinence Bowel routine is the priority today Check meds and labs 04/23/21: Pt doing well Wound vac will be changed today Fecal incontinence noted Bowel routine will be implemented 04/22/2021: Patient doing well Bowels move this morning with fecal incontinence Increase fluid intake is encouraged 04/21/21: Patient doing well Family visited with children Standing and pivoting very well 04/20/2021: Pt doing really well Wound vac was changed IV Zofran given every morning Changed her Scopolamine patch Children will visit tomorrow 04/19/2021: Pt stood and walked two steps today Wedge in left foot in shoe for foot drop has been helpful Zofran IV will be given every morning 04/18/2021: Pt doing well Catheter will be kept until decubitus ulcer heals BNO suppositories will be ordered for bladder spasms IV iron infusions completed Left foot drop is improving 04/17/2021: Pt doing much better Foot drop will be worked on today Getting up and around today Checked meds and labs Nausea improved 04/16/2021: Pt having some nausea Wound vac came off yesterday, replacing that today IV Zofran given for nausea Garett will restart the wound vac Consulting urology for bladder spasms 04/15/2021: Patient doing very well Visitors today No pain is reported Wound VAC in place Fecal incontinence continues 04/14/2021: Patient doing very well today Stood with a walker today at bedside No pain is reported Wound VAC in place 04/13/21: Patient doing well Scop patch resolving the nausea Pain controlled Wound vac changed No issues 04/12/2021: Scopolamine patch working well Patient doing well Wound VAC maintained Check meds and labs No pain Eating and drinking well Scopolamine patch working well 04/11/2021: Patient doing well Fecal incontinence again last night Participating in therapy Wound VAC changed 04/10/2021: Patient doing well No major concerns PICC line dysfunction will be assessed Foot drop will be addressed with AFO Incontinent of bowel last night 04/09/2021: Patient doing really well Labs stable Hemoglobin 8.6 Wound VAC working well Getting ready to go the parallel bars with physical therapy 04/08/2021: Patient doing very well Was up 4 times yesterday out of bed Loose stools only has occurred once May need to use Questran as needed Check meds labs 04/07/2021: Patient doing very well We will get up in chair for lunch Hemoglobin 8.6 Bowels are moving now so on verge of constipation will change Questran to as needed no pain is reported Wound VAC tolerated well Review of Systems General: Fatigue, Malaise Objective Exam Vital Signs Vital Signs Date Time Temp Pulse Resp B/P (MAP) Pulse Ox O2 Delivery O2 Flow Rate FiO2 04/27/21 20:00 Room Air 04/27/21 19:53 36.6 79 18 115/69 (84) 98 04/23/21 06:47 0.00 Capillary Refill : General Appearance: No Apparent Distress, WD/WN, Chronically ill, Other (pale, chronically ill) HEENT: PERRL/EOMI, Normal ENT Inspection, Pharynx Normal Neck: Full Range of Motion, Normal Inspection, Non Tender, Supple, Carotid Bruit Respiratory: Chest Non Tender, Lungs Clear, Normal Breath Sounds, No Accessory Muscle Use, No Respiratory Distress Cardiovascular: Regular Rate, Rhythm, No Edema, No Gallop, No JVD, No Murmur, Normal Peripheral Pulses Gastrointestinal: Normal Bowel Sounds, No Organomegaly, No Pulsatile Mass, Non Tender, Soft Back: Normal Inspection, No CVA Tenderness, No Vertebral Tenderness Extremity: Normal Capillary Refill, Normal Inspection, Normal Range of Motion, Non Tender, No Calf Tenderness, No Pedal Edema Neurologic/Psychiatric: Alert, Oriented x3, No Motor/Sensory Deficits, designer II- XII Norm as Tested, Depressed Affect, Motor Weakness (3/5 upper 1/5 lower) Skin: Normal Color, Warm/Dry, Other (coccyx decubitus ulcer with wound vac) Lymphatic: No Adenopathy Results/Procedures Lab Patient resulted labs reviewed. FIM Transfers Therapy Code Descriptions/Definitions Functional [place] Measure: 0=Not Assessed/NA 4=Minimal Assistance 1=Total Assistance 5=Supervision or Setup 2=Maximal Assistance 6=Modified [place] 3=Moderate Assistance 7=Complete IndependenceSCALE: Activities may be completed with or without assistive devices. 8-Ytpfgtuqwy-kukswuu completes the activity by him/herself with no assistance from a helper. 5-Set-up or Clean-up Assistance-helper sets up or cleans up; patient completes activity. [place] assists only prior to or following the activity. 4-Supervision or Touching Assistance-helper provides verbal cues and/or touching/steadying and/or contact guard assistance as patient completes activity. Assistance may be provided throughout the activity or intermittently. 3-Partial/Moderate Assistance-helper does LESS THAN HALF the effort. [place] lifts, holds or supports trunk or limbs, but provides less than half the effort. 2-Substantial/Maximal Assistance-helper does MORE THAN HALF the effort. [place] lifts or holds trunk or limbs and provides more than half the effort. 2-Guxysjjmp-mqkknx does ALL the effort. Patient does none of the effort to complete the activity. Or, the assistance of 2 or more helpers is required for the patient to complete the activity. If activity was not attempted, code reason: 7-Patient Refused. 9-Not Applicable-not attempted and the patient did not perform the activity before the current illness, exacerbation or injury. 10-Not Attempted due to Environmental Limitations-(lack of equipment, weather restraints, etc.). 88-Not Attempted due to Medical Conditions or Safety Concerns. Roll Left to Right (QC): 6 Sit to Lying (QC): 6 Sit to Stand (QC): 3 Chair/Iof-lk-Odtwg Xfer(QC): 3 Car Transfer (QC): 1 Gait Training Does the Patient Walk?: Yes Distance: 5'x2 Walk 10 feet (QC): 88 Walk 50 ft with 2 Turns(QC): 88 Walk 150 ft (QC): 88 Walking 10ft/uneven surface-QC: 88 Gait Persons Needed: 1 Gait Assistive Device: Parallel Bars Wheelchair Training Does the Pt Use a Wheelchair?: Yes Distance: 150 Wheel 50 ft with 2 turns (QC): 5 Wheel 150 ft (QC): 5 Type of Wheelchair: Manual Stair Training #of Steps: 0 1 Step (curb) (QC): 88 4 Steps (QC): 88 12 Steps (QC): 88 Balance Picking up an Object (QC): 88 ADL-Treatment Eating (QC): 4 Oral Hygiene (QC): 6 Shower/Bathe Self (QC): 3 (min) Upper Body Dressing (QC): 5 Lower Body Dressing (QC): 2 On/Off Footwear (QC): 3 Toileting Hygiene (QC): 2 Toilet Transfer (QC): 3 Assessment/Plan Assessment and Plan Assess & Plan/Chief Complaint Assessment: Post Covid with deconditioning s/p severe sepsis Diarrhea Sacral decubitus ulcer Hypokalemia Anemia previous transfusion Anxiety and Depression Fernandez catheter 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 Ongoing nausea improved Scopolamine patch Plan: IV abx Wound vac PT OT Depression meds OAC 04/07/2021: Wound VAC Out of bed 04/08/2021: Out of bed Wound VAC 04/09/2021: Supportive care Dramatic improvement already 04/10/2021: Supportive care Fernandez catheter required although it is an infection risk 04/11/2021: Supportive care Wound VAC appreciated 04/12/2021: Scopolamine patch Wound VAC 04/13/21: Scop patch Monitor pain 04/14/2021: Supportive care Wound VAC 04/14/2021: Wound VAC Fecal incontinence management 04/15/2021: Wound VAC management Continue depression treatment 04/16/2021: Supportive care Change wound VAC 04/17/2021: Appreciate wound care Cefepime 04/18/2021: Continue aggressive PT Wound VAC 04/19/2021: Supportive care Hold potassium to see if that helps with nausea 04/20/2021: Supportive care Children will visit tomorrow 04/21/2021: Supportive care Family visiting has helped her morale 04/22/2021: Supportive care Wound VAC management 04/23/2021: Supportive care Wound VAC management 04/24/2021: Supportive care Fecal incontinence management 04/25/21: Fecal incontinence training 04/26/2021: Fecal incontinence management Fernandez catheter may be able to be discontinued 04/27/2021: Supportive care Bowel incontinence management (1) Post covid-19 condition, unspecified Status: Chronic (2) Sacral decubitus ulcer, stage IV Status: Chronic (3) Severe sepsis Status: Acute (4) UTI (urinary tract infection) TERRA EDWARDS DO Apr 27, 2021 11:19
--- NOTE | 2021-04-27 13:12 | Physical Therapy Daily Note ---
PT Daily Note-Current Subjective Pt. in bed, just finished lunch. Agrees to therex and stretching and then requests to get up in recliner and wants to do all TRFs stand pivot now as her wound dressing is not tolerating the sheering. Pain Location: No Pain Reported Mental Status Patient Orientation: Normal For Age Attachments: Fernandez Catheter, Other-See Comments ([place]) Transfers SCALE: Activities may be completed with or without assistive devices. 3-Vwqbwxetsz-lpkwqdq completes the activity by him/herself with no assistance from a helper. 5-Set-up or Clean-up Assistance-helper sets up or cleans up; patient completes activity. [place] assists only prior to or following the activity. 4-Supervision or Touching Assistance-helper provides verbal cues and/or touching/steadying and/or contact guard assistance as patient completes activity. Assistance may be provided throughout the activity or intermittently. 3-Partial/Moderate Assistance-helper does LESS THAN HALF the effort. [place] lifts, holds or supports trunk or limbs, but provides less than half the effort. 2-Substantial/Maximal Assistance-helper does MORE THAN HALF the effort. [place] lifts or holds trunk or limbs and provides more than half the effort. 2-Vegraepaq-mhrfke does ALL the effort. Patient does none of the effort to complete the activity. Or, the assistance of 2 or more helpers is required for the patient to complete the activity. If activity was not attempted, code reason: 7-Patient Refused. 9-Not Applicable-not attempted and the patient did not perform the activity before the current illness, exacerbation or injury. 10-Not Attempted due to Environmental Limitations-(lack of equipment, weather restraints, etc.). 88-Not Attempted due to Medical Conditions or Safety Concerns. sup to side to sit SBA, sit to stand and SPT to recliner mod assist Weight Bearing Right Lower Extremity: Right Full Weight Bearing Left Lower Extremity: Left Full Weight Bearing Patient is cleared medically to bear weight through bilateral LEs, however due to prolonged illness and bed rest, patients LE's very weak and plantarflexion contractures bilaterally Exercises bilat HC and HS stretches 5 x 20 s each, pt. inquires as to whether left ankle is improved ...perhaps slightly Treatments TRFs, stretching, up in recliner after Rx with bonilla at hand. instructed to sit up with LEs down and attempt joint pressure through left foot and heel using heel of hands to apply pressure to stretch HC Assessment Current Status: Good Progress PT Short Term Goals Short Term Goals Time Frame: Apr 20, 2021 Roll Left & Right: 4 Sit to lyin Lying to sitting on side of be: 4 Sit to stand: 3 Chair/zvk-pa-yvosx transfer: 3 Toilet transfer: 3 Car transfer: 3 Walk 10 feet: 2 Walk 50 feet with two turns: 1 Walk 150 feet: 1 Does pt use a wc or scooter: Yes Wheel 50ft w/2 turns: 5 Wheel 150 feet: 5 Type: Manual PT Case Specialist Goals Chcf Goals PT Chcf Goals Time Frame: May 18, 2021 Roll Left & Right (QC): 6 Sit to Lying (QC): 6 Lying-Sitting on Side/Bed(QC): 6 Sit to Stand (QC): 4 Chair/Kqa-jh-Dwbsn Xfer(QC): 4 Toilet Transfer (QC): 4 Car Transfer (QC): 4 Does the Patient Walk: Yes Walk 10 feet (QC): 3 Walk 50ft with 2 Turns (QC): 3 Walk 150 ft (QC): 3 Walking 10ft on Uneven Surface: 3 1 Step (curb) (QC): 2 4 Steps (QC): 2 12 Steps (QC): 88 Picking up an Object (QC): 3 Does the Pt use WC or Scooter?: Yes Wheel 50 feet with 2 turns (QC: 6 Type: Manual Wheel 150 feet: 6 Type: Manual (6) PT Plan Treatment/Plan Treatment Plan: Continue Plan of Care Treatment Plan: Bed Mobility, Education, Functional Activity John Paul, Functional Strength, Group Therapy, Gait, Safety, Therapeutic Exercise, Transfers Treatment Duration: May 18, 2021 Frequency: At least 5 of 7 days/Wk (IRF) Estimated Hrs Per Day: 1.5 hours per day Patient and/or Family Agrees t: Yes Safety Risks/Education Patient Education: Transfer Techniques, Correct Positioning, Disease Process, Safety Issues Teaching Recipient: Patient Teaching Methods: Demonstration, Discussion Response to Teaching: Verbalize Understanding, Return Demonstration, Reinforcement Needed Time/GCodes Time In: 1245 Time Out: 1315 Total Billed Treatment Time: 30 Total Billed Treatment 1,FA10m,EX20m KRISSY SHEPHERD PTA Apr 27, 2021 13:12
[2021-04-27 19:53] VITALS: BP 115/69
[2021-04-27] MEDS: MELATONIN 10 MG TABLET PO SCH (21:43)
[2021-04-27] MEDS: TOLTERODINE LA 4 MG (DETROL) CAP PO SCH (21:43)
[2021-04-28] MEDS: CATHETER FLUSH 10 ML SYR IV SCH ×3 (06:16→21:02)
[2021-04-28] MEDS: VENlafaxine XR 75 MG (EFFEXOR XR) CAP PO SCH (06:16)
[2021-04-28] MEDS: CEFEPIME INJECTION 2,000 MG in NS (IVPB) 50 ML IV SCH ×3 (06:16→21:02)
[2021-04-28] MEDS: MULTIVIT W/MINERALS TAB (THERAGRAN M) PO SCH (06:16)
[2021-04-28 08:00] VITALS: BP 97/56
[2021-04-28] MEDS: polyethylene glycoL POWDER 17 GM (MIRALAX) PACK PO SCH ×2 (08:49→19:20)
[2021-04-28] MEDS: ATENOLOL 25 MG (TENORMIN) TAB PO SCH ×2 (09:21→21:01)
[2021-04-28] MEDS: HYDROcodone/APAP 7.5 MG/325 MG (LORTAB, LORCET PLUS) TABLET PO SCH ×4 (09:22→21:00)
[2021-04-28] MEDS: SERTRALINE 50 MG (ZOLOFT) TABLET PO SCH (09:22)
[2021-04-28] MEDS: APIXABAN 5 MG (ELIQUIS) TABLET PO SCH ×2 (09:22→21:01)
[2021-04-28] MEDS: OXYBUTYNIN (DITROPAN) 5 MG TAB PO SCH ×3 (09:22→21:01)
[2021-04-28] MEDS: FERROUS SULF 325 MG (IRON) TAB PO SCH (09:22)
[2021-04-28] MEDS: MESALAMINE 250 MG (PENTASA) CAP PO SCH ×3 (09:22→21:00)
[2021-04-28] MEDS: LACTOBACILLUS ACIDOPHILUS (PROBIOTIC) CAPSULE PO SCH ×3 (09:22→17:38)
--- NOTE | 2021-04-28 12:05 | PM&R Progress Note ---
Subjective HPI/CC On Admission Date Seen by Provider: Apr 28, 2021 Time Seen by Provider: 12:10 Subjective/Events-last exam 04/28/21: Having a good day Thornton cath was set to be changed today so will attempt to leave out and work on bladder routine with Marimar No pain 04/27/2021: Patient doing well No major issues came for family training Working on bowel incontinence 04/26/2021: Patient doing well Getting up to go to the bathroom She wants Thornton catheter out We will work on incontinence due to wound proximity 04/25/21: Pt doing well Bowel regimen will be maintained Getting up to the commode she had a vasovagal syncopal episode She needs to sit up more and she will do that Very slow recovery 04/24/2021: Patient doing well Working on fecal incontinence Bowel routine is the priority today Check meds and labs 04/23/21: Pt doing well Wound vac will be changed today Fecal incontinence noted Bowel routine will be implemented 04/22/2021: Patient doing well Bowels move this morning with fecal incontinence Increase fluid intake is encouraged 04/21/21: Patient doing well Family visited with children Standing and pivoting very well 04/20/2021: Pt doing really well Wound vac was changed IV Zofran given every morning Changed her Scopolamine patch Children will visit tomorrow 04/19/2021: Pt stood and walked two steps today Wedge in left foot in shoe for foot drop has been helpful Zofran IV will be given every morning 04/18/2021: Pt doing well Catheter will be kept until decubitus ulcer heals BNO suppositories will be ordered for bladder spasms IV iron infusions completed Left foot drop is improving 04/17/2021: Pt doing much better Foot drop will be worked on today Getting up and around today Checked meds and labs Nausea improved 04/16/2021: Pt having some nausea Wound vac came off yesterday, replacing that today IV Zofran given for nausea Britneydee will restart the wound vac Consulting urology for bladder spasms 04/15/2021: Patient doing very well Visitors today No pain is reported Wound VAC in place Fecal incontinence continues 04/14/2021: Patient doing very well today Stood with a walker today at bedside No pain is reported Wound VAC in place 04/13/21: Patient doing well Scop patch resolving the nausea Pain controlled Wound vac changed No issues 04/12/2021: Scopolamine patch working well Patient doing well Wound VAC maintained Check meds and labs No pain Eating and drinking well Scopolamine patch working well 04/11/2021: Patient doing well Fecal incontinence again last night Participating in therapy Wound VAC changed 04/10/2021: Patient doing well No major concerns PICC line dysfunction will be assessed Foot drop will be addressed with AFO Incontinent of bowel last night 04/09/2021: Patient doing really well Labs stable Hemoglobin 8.6 Wound VAC working well Getting ready to go the parallel bars with physical therapy 04/08/2021: Patient doing very well Was up 4 times yesterday out of bed Loose stools only has occurred once May need to use Questran as needed Check meds labs 04/07/2021: Patient doing very well We will get up in chair for lunch Hemoglobin 8.6 Bowels are moving now so on verge of constipation will change Questran to as n eeded no pain is reported Wound VAC tolerated well Review of Systems General: Fatigue, Malaise Objective Exam Vital Signs Vital Signs Date Time Temp Pulse Resp B/P (MAP) Pulse Ox O2 Delivery O2 Flow Rate FiO2 04/28/21 15:49 Room Air 04/28/21 08:00 36.3 103 18 97/56 (70) 96 04/23/21 06:47 0.00 Capillary Refill : General Appearance: No Apparent Distress, WD/WN, Chronically ill, Other (pale, chronically ill) HEENT: PERRL/EOMI, Normal ENT Inspection, Pharynx Normal Neck: Full Range of Motion, Normal Inspection, Non Tender, Supple, Carotid Bruit Respiratory: Chest Non Tender, Lungs Clear, Normal Breath Sounds, No Accessory Muscle Use, No Respiratory Distress Cardiovascular: Regular Rate, Rhythm, No Edema, No Gallop, No JVD, No Murmur, Normal Peripheral Pulses Gastrointestinal: Normal Bowel Sounds, No Organomegaly, No Pulsatile Mass, Non Tender, Soft Back: Normal Inspection, No CVA Tenderness, No Vertebral Tenderness Extremity: Normal Capillary Refill, Normal Inspection, Normal Range of Motion, Non Tender, No Calf Tenderness, No Pedal Edema Neurologic/Psychiatric: Alert, Oriented x3, No Motor/Sensory Deficits, beater operator II- XII Norm as Tested, Depressed Affect, Motor Weakness (3/5 upper 1/5 lower) Skin: Normal Color, Warm/Dry, Other (coccyx decubitus ulcer with wound vac) Lymphatic: No Adenopathy Results/Procedures Lab Patient resulted labs reviewed. FIM Transfers Therapy Code Descriptions/Definitions Functional [place] Measure: 0=Not Assessed/NA 4=Minimal Assistance 1=Total Assistance 5=Supervision or Setup 2=Maximal Assistance 6=Modified [place] 3=Moderate Assistance 7=Complete IndependenceSCALE: Activities may be completed with or without assistive devices. 4-Ogbulxvhbv-lvyieug completes the activity by him/herself with no assistance from a helper. 5-Set-up or Clean-up Assistance-helper sets up or cleans up; patient completes activity. [place] assists only prior to or following the activity. 4-Supervision or Touching Assistance-helper provides verbal cues and/or touching/steadying and/or contact guard assistance as patient completes activity. Assistance may be provided throughout the activity or intermittently. 3-Partial/Moderate Assistance-helper does LESS THAN HALF the effort. [place] lifts, holds or supports trunk or limbs, but provides less than half the effort. 2-Substantial/Maximal Assistance-helper does MORE THAN HALF the effort. [place] lifts or holds trunk or limbs and provides more than half the effort. 4-Hvdtkjybp-twscqm does ALL the effort. Patient does none of the effort to complete the activity. Or, the assistance of 2 or more helpers is required for the patient to complete the activity. If activity was not attempted, code reason: 7-Patient Refused. 9-Not Applicable-not attempted and the patient did not perform the activity bef ore the current illness, exacerbation or injury. 10-Not Attempted due to Environmental Limitations-(lack of equipment, weather r estraints, etc.). 88-Not Attempted due to Medical Conditions or Safety Concerns. Roll Left to Right (QC): 6 Sit to Lying (QC): 6 Sit to Stand (QC): 3 Chair/Nmx-kn-Pussn Xfer(QC): 3 Car Transfer (QC): 1 Gait Training Does the Patient Walk?: Yes Distance: 5'x2 Walk 10 feet (QC): 88 Walk 50 ft with 2 Turns(QC): 88 Walk 150 ft (QC): 88 Walking 10ft/uneven surface-QC: 88 Gait Persons Needed: 1 Gait Assistive Device: Parallel Bars Wheelchair Training Does the Pt Use a Wheelchair?: Yes Distance: 150 Wheel 50 ft with 2 turns (QC): 5 Wheel 150 ft (QC): 5 Type of Wheelchair: Manual Stair Training #of Steps: 0 1 Step (curb) (QC): 88 4 Steps (QC): 88 12 Steps (QC): 88 Balance Picking up an Object (QC): 88 ADL-Treatment Eating (QC): 4 Oral Hygiene (QC): 6 Shower/Bathe Self (QC): 3 (min) Upper Body Dressing (QC): 5 Lower Body Dressing (QC): 2 On/Off Footwear (QC): 3 Toileting Hygiene (QC): 2 Toilet Transfer (QC): 3 Assessment/Plan Assessment and Plan Assess & Plan/Chief Complaint Assessment: Post Covid with deconditioning s/p severe sepsis Diarrhea Sacral decubitus ulcer Hypokalemia Anemia previous transfusion Anxiety and Depression Thornton catheter 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 Ongoing nausea improved Scopolamine patch Plan: IV abx Wound vac PT OT Depression meds OAC 04/07/2021: Wound VAC Out of bed 04/08/2021: Out of bed Wound VAC 04/09/2021: Supportive care Dramatic improvement already 04/10/2021: Supportive care Thornton catheter required although it is an infection risk 04/11/2021: Supportive care Wound VAC appreciated 04/12/2021: Scopolamine patch Wound VAC 04/13/21: Scop patch Monitor pain 04/14/2021: Supportive care Wound VAC 04/14/2021: Wound VAC Fecal incontinence management 04/15/2021: Wound VAC management Continue depression treatment 04/16/2021: Supportive care Change wound VAC 04/17/2021: Appreciate wound care Cefepime 04/18/2021: Continue aggressive PT Wound VAC 04/19/2021: Supportive care Hold potassium to see if that helps with nausea 04/20/2021: Supportive care Children will visit tomorrow 04/21/2021: Supportive care Family visiting has helped her morale 04/22/2021: Supportive care Wound VAC management 04/23/2021: Supportive care Wound VAC management 04/24/2021: Supportive care Fecal incontinence management 04/25/21: Fecal incontinence training 04/26/2021: Fecal incontinence management Thornton catheter may be able to be discontinued 04/27/2021: Supportive care Bowel incontinence management 04/28/21: Bowel incontinence improved Leave thornton out (1) Post covid-19 condition, unspecified Status: Chronic (2) Sacral decubitus ulcer, stage IV Status: Chronic (3) Severe sepsis Status: Acute (4) UTI (urinary tract infection) TERRA EDWARDS DO Apr 28, 2021 12:05
--- NOTE | 2021-04-28 13:04 | Physical Therapy Daily Note ---
PT Daily Note-Current Subjective Pt reports she does not want to got to the gym today as she is very fatigued. Transfers SCALE: Activities may be completed with or without assistive devices. 3-Vewzdamdsi-oyxqpdl completes the activity by him/herself with no assistance from a helper. 5-Set-up or Clean-up Assistance-helper sets up or cleans up; patient completes activity. [place] assists only prior to or following the activity. 4-Supervision or Touching Assistance-helper provides verbal cues and/or touching/steadying and/or contact guard assistance as patient completes activity. Assistance may be provided throughout the activity or intermittently. 3-Partial/Moderate Assistance-helper does LESS THAN HALF the effort. [place] lifts, holds or supports trunk or limbs, but provides less than half the effort. 2-Substantial/Maximal Assistance-helper does MORE THAN HALF the effort. [place] lifts or holds trunk or limbs and provides more than half the effort. 4-Juabkjdgc-pehzli does ALL the effort. Patient does none of the effort to complete the activity. Or, the assistance of 2 or more helpers is required for the patient to complete the activity. If activity was not attempted, code reason: 7-Patient Refused. 9-Not Applicable-not attempted and the patient did not perform the activity before the current illness, exacerbation or injury. 10-Not Attempted due to Environmental Limitations-(lack of equipment, weather restraints, etc.). 88-Not Attempted due to Medical Conditions or Safety Concerns. Weight Bearing Right Lower Extremity: Right Full Weight Bearing Left Lower Extremity: Left Full Weight Bearing Patient is cleared medically to bear weight through bilateral LEs, however due to prolonged illness and bed rest, patients LE's very weak and plantarflexion contractures bilaterally Exercises Supine Ex: Bridging, Ankle pumps, Quad Set, Rolling, Glut sets, Lower trunk rotation, Heel Slides, Knee to chest, Short Arc Quads, Resisted flex/ext, Straight leg raise, Hip abd/add Supine Reps: 20 Performed PROM and grade III joint mobilizations to work ankle PF Assessment Pt progressing with strength and bed mobility. She will benefit from continued therapy to address functional mobility and contractures of the ankles. PT Short Term Goals Short Term Goals Time Frame: Apr 20, 2021 Roll Left & Right: 4 Sit to lyin Lying to sitting on side of be: 4 Sit to stand: 3 Chair/bwz-jg-yworh transfer: 3 Toilet transfer: 3 Car transfer: 3 Walk 10 feet: 2 Walk 50 feet with two turns: 1 Walk 150 feet: 1 Does pt use a wc or scooter: Yes Wheel 50ft w/2 turns: 5 Wheel 150 feet: 5 Type: Manual PT Group Home Goals Venipuncturist Goals PT Group Home Goals Time Frame: May 18, 2021 Roll Left & Right (QC): 6 Sit to Lying (QC): 6 Lying-Sitting on Side/Bed(QC): 6 Sit to Stand (QC): 4 Chair/Dhm-sw-Ztbui Xfer(QC): 4 Toilet Transfer (QC): 4 Car Transfer (QC): 4 Does the Patient Walk: Yes Walk 10 feet (QC): 3 Walk 50ft with 2 Turns (QC): 3 Walk 150 ft (QC): 3 Walking 10ft on Uneven Surface: 3 1 Step (curb) (QC): 2 4 Steps (QC): 2 12 Steps (QC): 88 Picking up an Object (QC): 3 Does the Pt use WC or Scooter?: Yes Wheel 50 feet with 2 turns (QC: 6 Type: Manual Wheel 150 feet: 6 Type: Manual (6) PT Plan Treatment/Plan Treatment Plan: Continue Plan of Care Treatment Plan: Bed Mobility, Education, Functional Activity John Paul, Functional Strength, Group Therapy, Gait, Safety, Therapeutic Exercise, Transfers Treatment Duration: May 18, 2021 Frequency: At least 5 of 7 days/Wk (IRF) Estimated Hrs Per Day: 1.5 hours per day Patient and/or Family Agrees t: Yes Time/GCodes Time In: 1115 Time Out: 1130 Total Billed Treatment Time: 15 Total Billed Treatment visit, exercise 15 min SCOTT FRANCOIS PT Apr 28, 2021 13:04
[2021-04-28 20:59] VITALS: BP 116/69
[2021-04-28] MEDS: TOLTERODINE LA 4 MG (DETROL) CAP PO SCH (21:00)
[2021-04-28] MEDS: MELATONIN 10 MG TABLET PO SCH (21:01)
[2021-04-29] MEDS: CEFEPIME INJECTION 2,000 MG in NS (IVPB) 50 ML IV SCH ×3 (06:03→21:07)
[2021-04-29] MEDS: MULTIVIT W/MINERALS TAB (THERAGRAN M) PO SCH (06:03)
[2021-04-29] MEDS: CATHETER FLUSH 10 ML SYR IV SCH ×3 (06:03→21:07)
[2021-04-29] MEDS: VENlafaxine XR 75 MG (EFFEXOR XR) CAP PO SCH (06:04)
--- NOTE | 2021-04-29 06:18 | PM&R Progress Note ---
Subjective HPI/CC On Admission Date Seen by Provider: Apr 29, 2021 Time Seen by Provider: 12:00 Subjective/Events-last exam 04/29/21: Doing very well Motivated to get home by holiday Thornton cath out and using Purewick 04/28/21: Having a good day Thornton cath was set to be changed today so will attempt to leave out and work on bladder routine with Purewick No pain 04/27/2021: Patient doing well No major issues came for family training Working on bowel incontinence 04/26/2021: Patient doing well Getting up to go to the bathroom She wants Thornton catheter out We will work on incontinence due to wound proximity 04/25/21: Pt doing well Bowel regimen will be maintained Getting up to the commode she had a vasovagal syncopal episode She needs to sit up more and she will do that Very slow recovery 04/24/2021: Patient doing well Working on fecal incontinence Bowel routine is the priority today Check meds and labs 04/23/21: Pt doing well Wound vac will be changed today Fecal incontinence noted Bowel routine will be implemented 04/22/2021: Patient doing well Bowels move this morning with fecal incontinence Increase fluid intake is encouraged 04/21/21: Patient doing well Family visited with children Standing and pivoting very well 04/20/2021: Pt doing really well Wound vac was changed IV Zofran given every morning Changed her Scopolamine patch Children will visit tomorrow 04/19/2021: Pt stood and walked two steps today Wedge in left foot in shoe for foot drop has been helpful Zofran IV will be given every morning 04/18/2021: Pt doing well Catheter will be kept until decubitus ulcer heals BNO suppositories will be ordered for bladder spasms IV iron infusions completed Left foot drop is improving 04/17/2021: Pt doing much better Foot drop will be worked on today Getting up and around today Checked meds and labs Nausea improved 04/16/2021: Pt having some nausea Wound vac came off yesterday, replacing that today IV Zofran given for nausea Britneydee will restart the wound vac Consulting urology for bladder spasms 04/15/2021: Patient doing very well Visitors today No pain is reported Wound VAC in place Fecal incontinence continues 04/14/2021: Patient doing very well today Stood with a walker today at bedside No pain is reported Wound VAC in place 04/13/21: Patient doing well Scop patch resolving the nausea Pain controlled Wound vac changed No issues 04/12/2021: Scopolamine patch working well Patient doing well Wound VAC maintained Check meds and labs No pain Eating and drinking well Scopolamine patch working well 04/11/2021: Patient doing well Fecal incontinence again last night Participating in therapy Wound VAC changed 04/10/2021: Patient doing well No major concerns PICC line dysfunction will be assessed Foot drop will be addressed with AFO Incontinent of bowel last night 04/09/2021: Patient doing really well Labs stable Hemoglobin 8.6 Wound VAC working well Getting ready to go the parallel bars with physical therapy 04/08/2021: Patient doing very well Was up 4 times yesterday out of bed Loose stools only has occurred once May need to use Questran as needed Check meds labs 04/07/2021: Patient doing very well We will get up in chair for lunch Hemoglobin 8.6 Bowels are moving now so on verge of constipation will change Questran to as needed no pain is reported Wound VAC tolerated well Review of Systems General: Fatigue, Malaise Objective Exam Vital Signs Vital Signs Date Time Temp Pulse Resp B/P (MAP) Pulse Ox O2 Delivery O2 Flow Rate FiO2 04/29/21 21:23 96 Room Air 04/29/21 19:54 36.5 77 18 112/59 (76) Capillary Refill : General Appearance: No Apparent Distress, WD/WN, Chronically ill, Other (pale, chronically ill) HEENT: PERRL/EOMI, Normal ENT Inspection, Pharynx Normal Neck: Full Range of Motion, Normal Inspection, Non Tender, Supple, Carotid Bruit Respiratory: Chest Non Tender, Lungs Clear, Normal Breath Sounds, No Accessory Muscle Use, No Respiratory Distress Cardiovascular: Regular Rate, Rhythm, No Edema, No Gallop, No JVD, No Murmur, Normal Peripheral Pulses Gastrointestinal: Normal Bowel Sounds, No Organomegaly, No Pulsatile Mass, Non Tender, Soft Back: Normal Inspection, No CVA Tenderness, No Vertebral Tenderness Extremity: Normal Capillary Refill, Normal Inspection, Normal Range of Motion, Non Tender, No Calf Tenderness, No Pedal Edema Neurologic/Psychiatric: Alert, Oriented x3, No Motor/Sensory Deficits, manager news II- XII Norm as Tested, Depressed Affect, Motor Weakness (3/5 upper 1/5 lower) Skin: Normal Color, Warm/Dry, Other (coccyx decubitus ulcer with wound vac) Lymphatic: No Adenopathy Results/Procedures Lab Patient resulted labs reviewed. FIM Transfers Therapy Code Descriptions/Definitions Functional [place] Measure: 0=Not Assessed/NA 4=Minimal Assistance 1=Total Assistance 5=Supervision or Setup 2=Maximal Assistance 6=Modified [place] 3=Moderate Assistance 7=Complete IndependenceSCALE: Activities may be completed with or without assistive devices. 4-Dqhaoasyjq-fjrxath completes the activity by him/herself with no assistance from a helper. 5-Set-up or Clean-up Assistance-helper sets up or cleans up; patient completes activity. [place] assists only prior to or following the activity. 4-Supervision or Touching Assistance-helper provides verbal cues and/or touching/steadying and/or contact guard assistance as patient completes activity. Assistance may be provided throughout the activity or intermittently. 3-Partial/Moderate Assistance-helper does LESS THAN HALF the effort. [place] lifts, holds or supports trunk or limbs, but provides less than half the effort. 2-Substantial/Maximal Assistance-helper does MORE THAN HALF the effort. [place] lifts or holds trunk or limbs and provides more than half the effort. 7-Hsdreivlv-dwuqhb does ALL the effort. Patient does none of the effort to complete the activity. Or, the assistance of 2 or more helpers is required for the patient to complete the activity. If activity was not attempted, code reason: 7-Patient Refused. 9-Not Applicable-not attempted and the patient did not perform the activity before the current illness, exacerbation or injury. 10-Not Attempted due to Environmental Limitations-(lack of equipment, weather restraints, etc.). 88-Not Attempted due to Medical Conditions or Safety Concerns. Roll Left to Right (QC): 6 Sit to Lying (QC): 6 Sit to Stand (QC): 3 Chair/Gms-oj-Udefw Xfer(QC): 3 Car Transfer (QC): 1 Gait Training Does the Patient Walk?: Yes Distance: 5'x2 Walk 10 feet (QC): 88 Walk 50 ft with 2 Turns(QC): 88 Walk 150 ft (QC): 88 Walking 10ft/uneven surface-QC: 88 Gait Persons Needed: 1 Gait Assistive Device: Parallel Bars Wheelchair Training Does the Pt Use a Wheelchair?: Yes Distance: 150 Wheel 50 ft with 2 turns (QC): 5 Wheel 150 ft (QC): 5 Type of Wheelchair: Manual Stair Training #of Steps: 0 1 Step (curb) (QC): 88 4 Steps (QC): 88 12 Steps (QC): 88 Balance Picking up an Object (QC): 88 ADL-Treatment Eating (QC): 4 Oral Hygiene (QC): 6 Shower/Bathe Self (QC): 3 (min) Upper Body Dressing (QC): 5 Lower Body Dressing (QC): 2 On/Off Footwear (QC): 3 Toileting Hygiene (QC): 2 Toilet Transfer (QC): 3 Assessment/Plan Assessment and Plan Assess & Plan/Chief Complaint Assessment: Post Covid with deconditioning s/p severe sepsis Diarrhea Sacral decubitus ulcer Hypokalemia Anemia previous transfusion Anxiety and depression Thornton catheter DC 04/28/21 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 Ongoing nausea improved Scopolamine patch Plan: IV abx Wound vac PT OT Depression meds OAC 04/07/2021: Wound VAC Out of bed 04/08/2021: Out of bed Wound VAC 04/09/2021: Supportive care Dramatic improvement already 04/10/2021: Supportive care Thornton catheter required although it is an infection risk 04/11/2021: Supportive care Wound VAC appreciated 04/12/2021: Scopolamine patch Wound VAC 04/13/21: Scop patch Monitor pain 04/14/2021: Supportive care Wound VAC 04/14/2021: Wound VAC Fecal incontinence management 04/15/2021: Wound VAC management Continue depression treatment 04/16/2021: Supportive care Change wound VAC 04/17/2021: Appreciate wound care Cefepime 04/18/2021: Continue aggressive PT Wound VAC 04/19/2021: Supportive care Hold potassium to see if that helps with nausea 04/20/2021: Supportive care Children will visit tomorrow 04/21/2021: Supportive care Family visiting has helped her morale 04/22/2021: Supportive care Wound VAC management 04/23/2021: Supportive care Wound VAC management 04/24/2021: Supportive care Fecal incontinence management 04/25/21: Fecal incontinence training 04/26/2021: Fecal incontinence management Thornton catheter may be able to be discontinued 04/27/2021: Supportive care Bowel incontinence management 04/28/21: Bowel incontinence improved Leave thornton out 04/29/21: Thornton out (1) Post covid-19 condition, unspecified Status: Chronic (2) Sacral decubitus ulcer, stage IV Status: Chronic (3) Severe sepsis Status: Acute (4) UTI (urinary tract infection) TERRA EDWARDS DO Apr 29, 2021 06:18
[2021-04-29 08:00] VITALS: BP 105/59
[2021-04-29] MEDS: polyethylene glycoL POWDER 17 GM (MIRALAX) PACK PO SCH ×2 (08:47→21:00)
[2021-04-29] MEDS: LACTOBACILLUS ACIDOPHILUS (PROBIOTIC) CAPSULE PO SCH ×3 (08:53→17:40)
[2021-04-29] MEDS: FERROUS SULF 325 MG (IRON) TAB PO SCH (08:53)
[2021-04-29] MEDS: OXYBUTYNIN (DITROPAN) 5 MG TAB PO SCH ×3 (08:53→21:05)
[2021-04-29] MEDS: SERTRALINE 50 MG (ZOLOFT) TABLET PO SCH (08:53)
[2021-04-29] MEDS: MESALAMINE 250 MG (PENTASA) CAP PO SCH ×3 (08:53→21:05)
[2021-04-29] MEDS: ATENOLOL 25 MG (TENORMIN) TAB PO SCH ×2 (08:53→21:05)
[2021-04-29] MEDS: APIXABAN 5 MG (ELIQUIS) TABLET PO SCH ×2 (08:54→21:05)
[2021-04-29] MEDS: HYDROcodone/APAP 7.5 MG/325 MG (LORTAB, LORCET PLUS) TABLET PO SCH ×4 (08:54→21:06)
[2021-04-29] MEDS: SCOPOLAMINE PATCH REMOVAL TP SCH (11:13)
[2021-04-29] MEDS: SCOPOLAMINE 1.5 MG (TRANSDERM-SCOP) PATCH TD SCH (11:13)
[2021-04-29 19:54] VITALS: BP 112/59
[2021-04-29] MEDS: MELATONIN 10 MG TABLET PO SCH (21:05)
[2021-04-29] MEDS: TOLTERODINE LA 4 MG (DETROL) CAP PO SCH (21:05)
[2021-04-30] MEDS: CATHETER FLUSH 10 ML SYR IV SCH ×3 (06:07→21:14)
--- NOTE | 2021-04-30 06:07 | PM&R Progress Note ---
Subjective HPI/CC On Admission Date Seen by Provider: Apr 30, 2021 Time Seen by Provider: 11:15 Subjective/Events-last exam 04/30/2021: Pt doing really well Wound vac is off Purewick is being used, less incontinence Checked meds and labs 04/29/21: Doing very well Motivated to get home by holiday Thornton cath out and using Purewick 04/28/21: Having a good day Thornton cath was set to be changed today so will attempt to leave out and work on bladder routine with Purewick No pain 04/27/2021: Patient doing well No major issues came for family training Working on bowel incontinence 04/26/2021: Patient doing well Getting up to go to the bathroom She wants Thornton catheter out We will work on incontinence due to wound proximity 04/25/21: Pt doing well Bowel regimen will be maintained Getting up to the commode she had a vasovagal syncopal episode She needs to sit up more and she will do that Very slow recovery 04/24/2021: Patient doing well Working on fecal incontinence Bowel routine is the priority today Check meds and labs 04/23/21: Pt doing well Wound vac will be changed today Fecal incontinence noted Bowel routine will be implemented 04/22/2021: Patient doing well Bowels move this morning with fecal incontinence Increase fluid intake is encouraged 04/21/21: Patient doing well Family visited with children Standing and pivoting very well 04/20/2021: Pt doing really well Wound vac was changed IV Zofran given every morning Changed her Scopolamine patch Children will visit tomorrow 04/19/2021: Pt stood and walked two steps today Wedge in left foot in shoe for foot drop has been helpful Zofran IV will be given every morning 04/18/2021: Pt doing well Catheter will be kept until decubitus ulcer heals BNO suppositories will be ordered for bladder spasms IV iron infusions completed Left foot drop is improving 04/17/2021: Pt doing much better Foot drop will be worked on today Getting up and around today Checked meds and labs Nausea improved 04/16/2021: Pt having some nausea Wound vac came off yesterday, replacing that today IV Zofran given for nausea Garett will restart the wound vac Consulting urology for bladder spasms 04/15/2021: Patient doing very well Visitors today No pain is reported Wound VAC in place Fecal incontinence continues 04/14/2021: Patient doing very well today Stood with a walker today at bedside No pain is reported Wound VAC in place 04/13/21: Patient doing well Scop patch resolving the nausea Pain controlled Wound vac changed No issues 04/12/2021: Scopolamine patch working well Patient doing well Wound VAC maintained Check meds and labs No pain Eating and drinking well Scopolamine patch working well 04/11/2021: Patient doing well Fecal incontinence again last night Participating in therapy Wound VAC changed 04/10/2021: Patient doing well No major concerns PICC line dysfunction will be assessed Foot drop will be addressed with AFO Incontinent of bowel last night 04/09/2021: Patient doing really well Labs stable Hemoglobin 8.6 Wound VAC working well Getting ready to go the parallel bars with physical therapy 04/08/2021: Patient doing very well Was up 4 times yesterday out of bed Loose stools only has occurred once May need to use Questran as needed Check meds labs 04/07/2021: Patient doing very well We will get up in chair for lunch Hemoglobin 8.6 Bowels are moving now so on verge of constipation will change Questran to as needed no pain is reported Wound VAC tolerated well Review of Systems General: Fatigue, Malaise Objective Exam Vital Signs Vital Signs Date Time Temp Pulse Resp B/P (MAP) Pulse Ox O2 Delivery O2 Flow Rate FiO2 04/30/21 21:47 Room Air 04/30/21 19:49 36.4 88 16 106/73 (84) 97 Capillary Refill : General Appearance: No Apparent Distress, WD/WN, Chronically ill, Other (pale, chronically ill) HEENT: PERRL/EOMI, Normal ENT Inspection, Pharynx Normal Neck: Full Range of Motion, Normal Inspection, Non Tender, Supple, Carotid Bruit Respiratory: Chest Non Tender, Lungs Clear, Normal Breath Sounds, No Accessory Muscle Use, No Respiratory Distress Cardiovascular: Regular Rate, Rhythm, No Edema, No Gallop, No JVD, No Murmur, Normal Peripheral Pulses Gastrointestinal: Normal Bowel Sounds, No Organomegaly, No Pulsatile Mass, Non Tender, Soft Back: Normal Inspection, No CVA Tenderness, No Vertebral Tenderness Extremity: Normal Capillary Refill, Normal Inspection, Normal Range of Motion, Non Tender, No Calf Tenderness, No Pedal Edema Neurologic/Psychiatric: Alert, Oriented x3, No Motor/Sensory Deficits, hat lacer II- XII Norm as Tested, Depressed Affect, Motor Weakness (3/5 upper 1/5 lower) Skin: Normal Color, Warm/Dry, Other (coccyx decubitus ulcer with wound vac) Lymphatic: No Adenopathy Results/Procedures Lab Laboratory Tests 04/30/21 06:14 Patient resulted labs reviewed. FIM Transfers Therapy Code Descriptions/Definitions Functional [place] Measure: 0=Not Assessed/NA 4=Minimal Assistance 1=Total Assistance 5=Supervision or Setup 2=Maximal Assistance 6=Modified [place] 3=Moderate Assistance 7=Complete IndependenceSCALE: Activities may be completed with or without assistive devices. 3-Pfexrzaskh-cemhvli completes the activity by him/herself with no assistance from a helper. 5-Set-up or Clean-up Assistance-helper sets up or cleans up; patient completes activity. [place] assists only prior to or following the activity. 4-Supervision or Touching Assistance-helper provides verbal cues and/or touching/steadying and/or contact guard assistance as patient completes activity. Assistance may be provided throughout the activity or intermittently. 3-Partial/Moderate Assistance-helper does LESS THAN HALF the effort. [place] lifts, holds or supports trunk or limbs, but provides less than half the effort. 2-Substantial/Maximal Assistance-helper does MORE THAN HALF the effort. [place] lifts or holds trunk or limbs and provides more than half the effort. 3-Fndzqihbt-cufluc does ALL the effort. Patient does none of the effort to complete the activity. Or, the assistance of 2 or more helpers is required for the patient to complete the activity. If activity was not attempted, code reason: 7-Patient Refused. 9-Not Applicable-not attempted and the patient did not perform the activity before the current illness, exacerbation or injury. 10-Not Attempted due to Environmental Limitations-(lack of equipment, weather restraints, etc.). 88-Not Attempted due to Medical Conditions or Safety Concerns. Roll Left to Right (QC): 6 Sit to Lying (QC): 6 Sit to Stand (QC): 3 Chair/Hrs-jj-Nykjs Xfer(QC): 3 Car Transfer (QC): 1 Gait Training Does the Patient Walk?: Yes Distance: 5'x2 Walk 10 feet (QC): 88 Walk 50 ft with 2 Turns(QC): 88 Walk 150 ft (QC): 88 Walking 10ft/uneven surface-QC: 88 Gait Persons Needed: 1 Gait Assistive Device: Parallel Bars Wheelchair Training Does the Pt Use a Wheelchair?: Yes Distance: 150 Wheel 50 ft with 2 turns (QC): 5 Wheel 150 ft (QC): 5 Type of Wheelchair: Manual Stair Training #of Steps: 0 1 Step (curb) (QC): 88 4 Steps (QC): 88 12 Steps (QC): 88 Balance Picking up an Object (QC): 88 ADL-Treatment Eating (QC): 4 Oral Hygiene (QC): 6 Shower/Bathe Self (QC): 3 (min) Upper Body Dressing (QC): 5 Lower Body Dressing (QC): 2 On/Off Footwear (QC): 3 Toileting Hygiene (QC): 2 Toilet Transfer (QC): 3 Assessment/Plan Assessment and Plan Assess & Plan/Chief Complaint Assessment: Post Covid with deconditioning s/p severe sepsis Diarrhea Sacral decubitus ulcer now with wound VAC DC Hypokalemia Anemia previous transfusion Anxiety and depression Thornton catheter DC 04/28/21 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 Ongoing nausea improved Scopolamine patch Plan: IV abx Wound vac PT OT Depression meds OAC 04/07/2021: Wound VAC Out of bed 04/08/2021: Out of bed Wound VAC 04/09/2021: Supportive care Dramatic improvement already 04/10/2021: Supportive care Thornton catheter required although it is an infection risk 04/11/2021: Supportive care Wound VAC appreciated 04/12/2021: Scopolamine patch Wound VAC 04/13/21: Scop patch Monitor pain 04/14/2021: Supportive care Wound VAC 04/14/2021: Wound VAC Fecal incontinence management 04/15/2021: Wound VAC management Continue depression treatment 04/16/2021: Supportive care Change wound VAC 04/17/2021: Appreciate wound care Cefepime 04/18/2021: Continue aggressive PT Wound VAC 04/19/2021: Supportive care Hold potassium to see if that helps with nausea 04/20/2021: Supportive care Children will visit tomorrow 04/21/2021: Supportive care Family visiting has helped her morale 04/22/2021: Supportive care Wound VAC management 04/23/2021: Supportive care Wound VAC management 04/24/2021: Supportive care Fecal incontinence management 04/25/21: Fecal incontinence training 04/26/2021: Fecal incontinence management Thornton catheter may be able to be discontinued 04/27/2021: Supportive care Bowel incontinence management 04/28/21: Bowel incontinence improved Leave thornton out 04/29/21: Thornton out 04/30/2021: Supportive care Thornton Wound VAC off (1) Post covid-19 condition, unspecified Status: Chronic (2) Sacral decubitus ulcer, stage IV Status: Chronic (3) Severe sepsis Status: Acute (4) UTI (urinary tract infection) TERRA EDWARDS DO Apr 30, 2021 06:07
[2021-04-30] MEDS: CEFEPIME INJECTION 2,000 MG in NS (IVPB) 50 ML IV SCH ×3 (06:08→21:16)
[2021-04-30] MEDS: MULTIVIT W/MINERALS TAB (THERAGRAN M) PO SCH (06:08)
[2021-04-30] MEDS: VENlafaxine XR 75 MG (EFFEXOR XR) CAP PO SCH (06:09)
[2021-04-30 06:17] LABS: BASOPHILS # (AUTO) 0.1 10^3/uL (0.0-0.1); BASOPHILS % (AUTO) 1 % (0-10); EOSINOPHILS # (AUTO) 0.3 10^3/uL (0.0-0.3); EOSINOPHILS % (AUTO) 4 % (0-10); HEMATOCRIT 31 % (35-52); HEMOGLOBIN 9.5 g/dL (11.5-16.0); LYMPHOCYTES # (AUTO) 2.9 10^3/uL (1.0-4.0); LYMPHOCYTES % (AUTO) 39 % (12-44); MEAN CORPUSCULAR HEMOGLOBIN 31 pg (25-34); MEAN CORPUSCULAR HGB CONC 31 g/dL (32-36); MEAN CORPUSCULAR VOLUME 102 fL (80-99); MEAN PLATELET VOLUME 9.8 fL (9.0-12.2); MONOCYTES # (AUTO) 0.8 10^3/uL (0.0-1.0); MONOCYTES % (AUTO) 11 % (0-12); NEUTROPHILS # (AUTO) 3.2 10^3/uL (1.8-7.8); NEUTROPHILS % (AUTO) 44 % (42-75); PLATELET COUNT 286 10^3/uL (130-400); WHITE BLOOD COUNT 7.3 10^3/uL (4.3-11.0)
[2021-04-30 06:36] LABS: ALBUMIN 2.3 GM/DL (3.2-4.5)
[2021-04-30 06:37] LABS: POTASSIUM 3.6 MMOL/L (3.6-5.0)
[2021-04-30 06:38] LABS: CALCIUM 8.2 MG/DL (8.5-10.1)
[2021-04-30 06:39] LABS: TOTAL PROTEIN 4.2 GM/DL (6.4-8.2)
[2021-04-30 06:41] LABS: BILIRUBIN,TOTAL 0.2 MG/DL (0.1-1.0)
[2021-04-30 06:43] LABS: CREATININE SERUM 0.72 MG/DL (0.60-1.30)
[2021-04-30] MEDS: ATENOLOL 25 MG (TENORMIN) TAB PO SCH ×2 (07:12→21:16)
[2021-04-30] MEDS: polyethylene glycoL POWDER 17 GM (MIRALAX) PACK PO SCH ×2 (07:13→19:41)
[2021-04-30 07:33] VITALS: BP 90/49
[2021-04-30] MEDS: MESALAMINE 250 MG (PENTASA) CAP PO SCH ×3 (08:01→21:15)
[2021-04-30] MEDS: HYDROcodone/APAP 7.5 MG/325 MG (LORTAB, LORCET PLUS) TABLET PO SCH ×4 (08:01→21:15)
[2021-04-30] MEDS: OXYBUTYNIN (DITROPAN) 5 MG TAB PO SCH ×3 (08:01→21:15)
[2021-04-30] MEDS: SERTRALINE 50 MG (ZOLOFT) TABLET PO SCH (08:01)
[2021-04-30] MEDS: VITAMIN D2 1.25 MG (50,000 UNITS) CAP PO SCH (08:01)
[2021-04-30] MEDS: FERROUS SULF 325 MG (IRON) TAB PO SCH (08:01)
[2021-04-30] MEDS: LACTOBACILLUS ACIDOPHILUS (PROBIOTIC) CAPSULE PO SCH ×3 (08:01→17:48)
[2021-04-30] MEDS: APIXABAN 5 MG (ELIQUIS) TABLET PO SCH ×2 (08:02→21:15)
--- NOTE | 2021-04-30 09:08 | Occupational Ther Daily Note ---
OT Current Status-Daily Note Subjective Denies pain, agreeable to treatment. Co-treat with PT for part of session (0845- 0900) due to impaired activity tolerance, weakness, and fatigue. Appearance Left sitting in w/c, physical therapy present. Mental Status/Objective Patient Orientation: Person, Place, Time, Situation Attachments: IV rosibel johnson ADL-Treatment Therapy Code Descriptions/Definitions Functional [place] Measure: 0=Not Assessed/NA 4=Minimal Assistance 1=Total Assistance 5=Supervision or Setup 2=Maximal Assistance 6=Modified [place] 3=Moderate Assistance 7=Complete IndependenceSCALE: Activities may be completed with or without assistive devices. 6-Jczlfjdvae-jbxxhsp completes the activity by him/herself with no assistance from a helper. 5-Set-up or Clean-up Assistance-helper sets up or cleans up; patient completes activity. [place] assists only prior to or following the activity. 4-Supervision or Touching Assistance-helper provides verbal cues and/or touching/steadying and/or contact guard assistance as patient completes activity. Assistance may be provided throughout the activity or intermittently. 3-Partial/Moderate Assistance-helper does LESS THAN HALF the effort. [place] lifts, holds or supports trunk or limbs, but provides less than half the effort. 2-Substantial/Maximal Assistance-helper does MORE THAN HALF the effort. [place] lifts or holds trunk or limbs and provides more than half the effort. 6-Jdjitxvwx-ftwnqa does ALL the effort. Patient does none of the effort to complete the activity. Or, the assistance of 2 or more helpers is required for the patient to complete the activity. If activity was not attempted, code reason: 7-Patient Refused. 9-Not Applicable-not attempted and the patient did not perform the activity before the current illness, exacerbation or injury. 10-Not Attempted due to Environmental Limitations-(lack of equipment, weather restraints, etc.). 88-Not Attempted due to Medical Conditions or Safety Concerns. Eating (QC): 6 Oral Hygiene (QC): 5 Shower/Bathe Self (QC): 4 Upper Body Dressing (QC): 5 Lower Body Dressing (QC): 3 On/Off Footwear: 4 Toileting Hygiene (QC): 3 Toilet Transfer (QC): 3 Shower performed, 100% in sitting. Indep with performing lateral pelvic leans, yet requires min a for thoroughness when washing buttocks. Pt was able to bend at waist this date to reach ankle. Declined washing feet. Reminder to use LHS if needed for reach and energy conservation. Clothing donned seated in w/c. With use of psych coordinator, pt was able to thread BLE's into brief. She stood at grab bar with mod a. Attempt at removing one hand at a time for clothing management, yet balance worsens and requires extra assist to maintain balance. Mod-max a still needed to pull up to waist. Min reminders on sock aid use. Post cues, pt able to perform without assist. Pants not donned at this time as wound care nurse in to change dressing at end of session. Stand pivot from w/c to toilet with Min-mod a and use of grab bars. Good attempt at tsering care, yet still requires assist secondary to visual communications instructor/hand weakness. Education OT Patient Education: Correct positioning, Energy conservation, Modified ADL techniques, Progress toward Goal/Update tx plan, Purpose of tx/functional activities, Transfer techniques, Use of adapted equipment, W/C management Teaching Recipient: Patient Teaching Methods: Demonstration, Discussion Response to Teaching: Verbalize Understanding, Return Demonstration OT Short Term Goals Short Term Goals Time Frame: Apr 20, 2021 Eatin Oral hygiene: 5 Toileting hygiene: 2 Shower/bathe self: 2 Upper body dressin Lower body dressin Putting on/taking off footwear: 2 OT Patient Safety Tech Goals Patient Safety Tech Goals Time Frame: May 04, 2021 Eating (QC): 6 Oral Hygiene (QC): 5 Toileting Hygiene (QC): 4 Shower/Bathe Self (QC): 4 Upper Body Dressing (QC): 5 Lower Body Dressing (QC): 4 On/Off Footwear (QC): 4 1=Demonstrate adherence to instructed precautions during ADL tasks. 2=Patient will verbalize/demonstrate understanding of assistive devices/modifications for ADL. 3=Patient will improve strength/tolerance for activity to enable patient to perform ADL's. OT Education/Plan Problem List/Assessment Assessment: Decreased Activ Tolerance, Decreased UE Strength, Impaired Funct Balance, Impaired I ADL's, Impaired Self-Care Skills Discharge Recommendations Plan/Recommendations: Continue POC Treatment Plan/Plan of Care Treatment,Training & Education: Yes Patient would benefit from OT for education, treatment and training to promote independence in ADL's, mobility, safety and/or upper extremity function for ADL's. Plan of Care: ADL Retraining, Caregiver Training, Functional Mobility, Group Exercise/Act as Ind, UE Funct Exercise/Act, UE Neuromus Re-Ed/Coord, W/C Management Training Treatment Duration: May 04, 2021 Frequency: At least 5 of 7 days/Wk (IRF) Estimated Hrs Per Day: 1.5 hours per day Agreement: Yes Rehab Potential: Fair Time/GCodes Start Time: 07:45 Stop Time: 09:00 Total Time Billed (hr/min): 75 Billed Treatment Time 1 visit ADL x5 Latoya Becker OT Apr 30, 2021 09:08
--- NOTE | 2021-04-30 09:28 | Physical Therapy Daily Note ---
PT Daily Note-Current Subjective Pt. with OT for 15 min initially. Pt. perky and talkative and positive. Pt. agrees to Rx and explains her progress since last seeing this SALES OFFICE ADMINISTRATOR. Pain Location: No Pain Reported Mental Status Patient Orientation: Normal For Age [place] and [place] just DC d recently Transfers SCALE: Activities may be completed with or without assistive devices. 7-Hrqpyfcelf-pfcdwbk completes the activity by him/herself with no assistance from a helper. 5-Set-up or Clean-up Assistance-helper sets up or cleans up; patient completes activity. [place] assists only prior to or following the activity. 4-Supervision or Touching Assistance-helper provides verbal cues and/or touching/steadying and/or contact guard assistance as patient completes activity. Assistance may be provided throughout the activity or intermittently. 3-Partial/Moderate Assistance-helper does LESS THAN HALF the effort. [place] lifts, holds or supports trunk or limbs, but provides less than half the effort. 2-Substantial/Maximal Assistance-helper does MORE THAN HALF the effort. [place] lifts or holds trunk or limbs and provides more than half the effort. 8-Ywexlvrlq-trrjyj does ALL the effort. Patient does none of the effort to complete the activity. Or, the assistance of 2 or more helpers is required for the patient to complete the activity. If activity was not attempted, code reason: 7-Patient Refused. 9-Not Applicable-not attempted and the patient did not perform the activity before the current illness, exacerbation or injury. 10-Not Attempted due to Environmental Limitations-(lack of equipment, weather restraints, etc.). 88-Not Attempted due to Medical Conditions or Safety Concerns. Roll Left & Right (QC): 6 Sit to Lying (QC): 6 Lying to Sitting/Side of Bed(Q: 6 Sit to Stand (QC): 4 Chair/Itl-ym-Soqav Xfer(QC): 4 bed mobility indep, w/c to bed TRF using rail min assist, sit to sup indep, scooting left and right and up in bed indep Weight Bearing Right Lower Extremity: Right Full Weight Bearing Left Lower Extremity: Left Full Weight Bearing Patient is cleared medically to bear weight through bilateral LEs, however due to prolonged illness and bed rest, patients LE's very weak and plantarflexion contractures bilaterally Wheelchair Training Does the Pt Use a Wheelchair?: Yes moves in room to position for TRFs and brakes appropriately Exercises Supine Ex: Bridging, Ankle pumps (HC stretches 3 x 20 sec ), Quad Set, Rolling, Glut sets, Heel Slides, Scooting, Straight leg raise, Hip abd/add (sidelying) Supine Reps: 15 Seated Therapy Exercises: Sit to stand, Long arc quads Seated Reps: 15 Treatments TRFs, bed mob, positioning, LE exercises Assessment Current Status: Good Progress pt. initiating activity more indep, increased indep in bed mob and TRFs and LE strength PT Short Term Goals Short Term Goals Time Frame: Apr 20, 2021 Roll Left & Right: 4 Sit to lyin Lying to sitting on side of be: 4 Sit to stand: 3 Chair/ovx-xr-lzmvt transfer: 3 Toilet transfer: 3 Car transfer: 3 Walk 10 feet: 2 Walk 50 feet with two turns: 1 Walk 150 feet: 1 Does pt use a wc or scooter: Yes Wheel 50ft w/2 turns: 5 Wheel 150 feet: 5 Type: Manual PT Senior Mechanical Project Engineer Goals Assisted Goals PT Senior Mechanical Project Engineer Goals Time Frame: May 18, 2021 Roll Left & Right (QC): 6 Sit to Lying (QC): 6 Lying-Sitting on Side/Bed(QC): 6 Sit to Stand (QC): 4 Chair/Tfl-yv-Xsffb Xfer(QC): 4 Toilet Transfer (QC): 4 Car Transfer (QC): 4 Does the Patient Walk: Yes Walk 10 feet (QC): 3 Walk 50ft with 2 Turns (QC): 3 Walk 150 ft (QC): 3 Walking 10ft on Uneven Surface: 3 1 Step (curb) (QC): 2 4 Steps (QC): 2 12 Steps (QC): 88 Picking up an Object (QC): 3 Does the Pt use WC or Scooter?: Yes Wheel 50 feet with 2 turns (QC: 6 Type: Manual Wheel 150 feet: 6 Type: Manual (6) PT Plan Treatment/Plan Treatment Plan: Continue Plan of Care Treatment Plan: Bed Mobility, Education, Functional Activity [place], Functional Strength, Group Therapy, Gait, Safety, Therapeutic Exercise, Transfers Treatment Duration: May 18, 2021 Frequency: At least 5 of 7 days/Wk (IRF) Estimated Hrs Per Day: 1.5 hours per day Patient and/or Family Agrees t: Yes Safety Risks/Education Patient Education: Transfer Techniques, Correct Positioning, W/C Management, Disease Process, Safety Issues Teaching Recipient: Patient Teaching Methods: Demonstration, Discussion Response to Teaching: Verbalize Understanding, Return Demonstration, Re inforcement Needed Time/GCodes Time In: 845 Time Out: 930 Total Billed Treatment Time: 45 Total Billed Treatment 1,FA20,EX25 KRISSY SHEPHERD SALES OFFICE ADMINISTRATOR Apr 30, 2021 09:28
--- NOTE | 2021-04-30 09:41 | Wound Care Assessment ---
Wound Care Assessment Date Seen by Provider: Apr 30, 2021 Time Seen by Provider: 09:35 Chief Complaint Stage 4 pressure ulcer sacrum with treated osteomyelitis STEVEN Diehl is a pleasant young lady who had a severe case of COVID-19 resulting in subsequent stage 4 pressure ulceration with acute osteomyelitis. She presented to my office prior to hospital admission from a local nursing facility. In my office she was hypotensive, febrile and with N/V. She was referred to the emergency room for admission. She was admitted to the ICU with severe sepsis and required broad spectrum antibiotics, pressure support and aggressive rehydration. Bone culture and biopsy obtained along with wound culture. These confirmed Pseudomonas infection (also in urine) and acute osteomyelitis. She is greatly improved from admission and is now admitted to rehab for strengthening and continued wound care and IV antibiotics. On initial exam she did have a piece of bone that flaked off which was obtained for biopsy/culture. The underlying bone did not appear necrotic to myself. Surgery also did not deem necessary for ariel debridement. Her wound dramatically improved with veraflow wound vac and traditional wound vac. Bone is no longer exposed. Wound bed appears pink and with good granulation. She has been on Vashe WTD dressings since Friday (today in Friday). She remains on targeted antibiotic therapy and is gaining strength daily. She is improving with each visit. Wound has decreased in size from last evaluation (2x2x1.2). Today we plan to place on silver alginate packing with barrier ointment to periwound. Will continue to cleanse with Vashe. Allevyn as secondary dressing. Patient has a goal to be home by [place]. She is much more mobile and has made excellent progress from admission. Past Medical History: Admits Diabetes Type II, Admits Heart Disease Smoking Status: Never a Smoker Alcohol Use: Denies Use Review of Systems Neurological: Weakness Exam Vital Signs Date Time Temp Pulse Resp B/P (MAP) Pulse Ox O2 Delivery O2 Flow Rate FiO2 04/30/21 09:12 Room Air 04/30/21 07:33 36.1 78 14 90/49 (63) 95 Capillary Refill : General Appearance: WD/WN, no apparent distress, obese HEENT: normal ENT inspection Neck: full range of motion Cardiovascular: no edema Respiratory: no respiratory distress, no accessory muscle use Extremities: normal range of motion, no pedal edema Skin: normal color, warm/dry Skin Problem Location: other ([place]) Wounds assessment: 1.7x1.6x1.2cm. There is no bone exposed. The epithelial ization is small, there is no tunneling or undermining. Drainage is large and serosanguinous, granulation is large and pink, necrotic is small and slough. Wound margins are flat. Results Laboratory Tests 04/30/21 06:14: White Blood Count 7.3, Red Blood Count 3.03L, Hemoglobin 9.5L, Hematocrit 31L, Mean Corpuscular Volume 102H, Mean Corpuscular Hemoglobin 31, Mean Corpuscular Hemoglobin Concent 31L, Red Cell Distribution Width 16.3H, Platelet Count 286, Mean Platelet Volume 9.8, Immature Granulocyte % (Auto) 1, Neutrophils (%) (Auto) 44, Lymphocytes (%) (Auto) 39, Monocytes (%) (Auto) 11, Eosinophils (%) (Auto) 4, Basophils (%) (Auto) 1, Neutrophils # (Auto) 3.2, Lymphocytes # (Auto) 2.9, Monocytes # (Auto) 0.8, Eosinophils # (Auto) 0.3, Basophils # (Auto) 0.1, Immature Granulocyte # (Auto) 0.0, Sodium Level 143, Potassium Level 3.6, Chloride Level 114H, Carbon Dioxide Level 21, Anion Gap 8, Blood Urea Nitrogen 17, Creatinine 0.72, Estimat Glomerular Filtration Rate 91, BUN/Creatinine Ratio 24, Glucose Level 85, Calcium Level 8.2L, Corrected Calcium 9.6, Total Bilirubin 0.2, Aspartate Amino Transf (AST/SGOT) 19, Alanine Aminotransferase (ALT/SGPT) 19, Alkaline Phosphatase 58, Total Protein 4.2L, Albumin 2.3L Assessment/Plan/Dx Assessment: 1. Post COVID 19 stage 4 sacral pressure ulcer 2. Acute pseudomonal osteomyelitis 3. DM2 4. PEM 5. Generalized weakness Plan: 1. Targeted antibiotic therapy for 8 weeks. Defer changes to primary's capable hands if needed in future. 2. Appropriate off loading per turning and bedding 3. D/C wound vac. Start Aquacel Ag to wound bed daily and prn. Cleanse with Vashe. Barrier ointment to periwound. Bordered foam dressing as secondary dressing. 4. Glycemic control for speed of wound healing. Defer diabetic changes to primary 5. High protein diet/supplements as indicated. 6. Increased strengthening per rehab personnel. ANKIT BERNABE MD Apr 30, 2021 09:41
--- NOTE | 2021-04-30 11:38 | Occupational Ther Daily Note ---
OT Current Status-Daily Note Subjective Agreeable to treatment Appearance Pt left sitting EOB, all needs within reach. Spiritual care in room. Mental Status/Objective Patient Orientation: Person, Place, Time, Situation Attachments: IV ADL-Treatment Therapy Code Descriptions/Definitions Functional [place] Measure: 0=Not Assessed/NA 4=Minimal Assistance 1=Total Assistance 5=Supervision or Setup 2=Maximal Assistance 6=Modified [place] 3=Moderate Assistance 7=Complete IndependenceSCALE: Activities may be completed with or without assistive devices. 1-Kgxhxrujjw-pywtdtn completes the activity by him/herself with no assistance from a helper. 5-Set-up or Clean-up Assistance-helper sets up or cleans up; patient completes activity. [place] assists only prior to or following the activity. 4-Supervision or Touching Assistance-helper provides verbal cues and/or touching/steadying and/or contact guard assistance as patient completes activity. Assistance may be provided throughout the activity or intermittently. 3-Partial/Moderate Assistance-helper does LESS THAN HALF the effort. [place] lifts, holds or supports trunk or limbs, but provides less than half the effort. 2-Substantial/Maximal Assistance-helper does MORE THAN HALF the effort. [place] lifts or holds trunk or limbs and provides more than half the effort. 1-Plfyximeg-doafeu does ALL the effort. Patient does none of the effort to complete the activity. Or, the assistance of 2 or more helpers is required for the patient to complete the activity. If activity was not attempted, code reason: 7-Patient Refused. 9-Not Applicable-not attempted and the patient did not perform the activity before the current illness, exacerbation or injury. 10-Not Attempted due to Environmental Limitations-(lack of equipment, weather restraints, etc.). 88-Not Attempted due to Medical Conditions or Safety Concerns. Other Treatment Pt participated in hand/destination imagination coordinator/finger dexterity/strengthening activities to improve strength and FM coordination needed during adls. Activities included r ubber band geoboard and theraputty with small beads. Pt appeared to tolerate well, L slightly weaker than R. Continues to have some weakness in wrist extension on LUE. Education OT Patient Education: Correct positioning, Energy conservation, Progress toward Goal/Update tx plan, Purpose of tx/functional activities Teaching Recipient: Patient Teaching Methods: Discussion Response to Teaching: Verbalize Understanding, Return Demonstration OT Short Term Goals Short Term Goals Time Frame: Apr 20, 2021 Eatin Oral hygiene: 5 Toileting hygiene: 2 Shower/bathe self: 2 Upper body dressin Lower body dressin Putting on/taking off footwear: 2 OT Hauling Contractor Goals Hauling Contractor Goals Time Frame: May 04, 2021 Eating (QC): 6 Oral Hygiene (QC): 5 Toileting Hygiene (QC): 4 Shower/Bathe Self (QC): 4 Upper Body Dressing (QC): 5 Lower Body Dressing (QC): 4 On/Off Footwear (QC): 4 1=Demonstrate adherence to instructed precautions during ADL tasks. 2=Patient will verbalize/demonstrate understanding of assistive devices/modifications for ADL. 3=Patient will improve strength/tolerance for activity to enable patient to perform ADL's. OT Education/Plan Problem List/Assessment Assessment: Decreased Activ Tolerance, Decreased UE Strength, Impaired Funct Balance, Impaired I ADL's, Impaired Self-Care Skills Discharge Recommendations Plan/Recommendations: Continue POC Treatment Plan/Plan of Care Treatment,Training & Education: Yes Patient would benefit from OT for education, treatment and training to promote independence in ADL's, mobility, safety and/or upper extremity function for ADL's. Plan of Care: ADL Retraining, Caregiver Training, Functional Mobility, Group E xercise/Act as Ind, UE Funct Exercise/Act, UE Neuromus Re-Ed/Coord, W/C Management Training Treatment Duration: May 04, 2021 Frequency: At least 5 of 7 days/Wk (IRF) Estimated Hrs Per Day: 1.5 hours per day Agreement: Yes Rehab Potential: Fair Time/GCodes Start Time: 10:50 Stop Time: 11:05 Total Time Billed (hr/min): 15 Billed Treatment Time 1 visit Latoya Barreto OT Apr 30, 2021 11:38
--- NOTE | 2021-04-30 13:16 | Physical Therapy Daily Note ---
PT Daily Note-Current Subjective Pt. agrees to Rx. Wants to go in to bthrm to toilet. Proud of her progress and has goal of DCing Thurs Pain Location: No Pain Reported Mental Status Patient Orientation: Normal For Age Transfers SCALE: Activities may be completed with or without assistive devices. 4-Nrpviwdsly-qgczpgq completes the activity by him/herself with no assistance from a helper. 5-Set-up or Clean-up Assistance-helper sets up or cleans up; patient completes activity. [place] assists only prior to or following the activity. 4-Supervision or Touching Assistance-helper provides verbal cues and/or touc kevin/steadying and/or contact guard assistance as patient completes activity. Assistance may be provided throughout the activity or intermittently. 3-Partial/Moderate Assistance-helper does LESS THAN HALF the effort. [place] lifts, holds or supports trunk or limbs, but provides less than half the effort. 2-Substantial/Maximal Assistance-helper does MORE THAN HALF the effort. [place] lifts or holds trunk or limbs and provides more than half the effort. 2-Fdugebeyf-eggywv does ALL the effort. Patient does none of the effort to complete the activity. Or, the assistance of 2 or more helpers is required for the patient to complete the activity. If activity was not attempted, code reason: 7-Patient Refused. 9-Not Applicable-not attempted and the patient did not perform the activity before the current illness, exacerbation or injury. 10-Not Attempted due to Environmental Limitations-(lack of equipment, weather restraints, etc.). 88-Not Attempted due to Medical Conditions or Safety Concerns. Sit to Stand (QC): 3 Chair/Eze-uy-Kqvhc Xfer(QC): 4 Toilet Transfer (QC): 3 Weight Bearing Right Lower Extremity: Right Full Weight Bearing Left Lower Extremity: Left Full Weight Bearing Patient is cleared medically to bear weight through bilateral LEs, however due to prolonged illness and bed rest, patients LE's very weak and plantarflexion contractures bilaterally Exercises Seated Therapy Exercises: Sit to stand, Long arc quads Seated Reps: 10 Treatments pt. TRFd bed to w/c mod to min. Donned pants with min assist, stood at bed rail with mod assist to pull them up, indep w/c mob to bthrm to TRF to toilet mod assist, cleaned self indep TRFd w/c to recliner Mod assist Assessment Current Status: Good Progress gaining funct mod ad indep. Had control for urine and is gaining in control of BM PT Short Term Goals Short Term Goals Time Frame: Apr 20, 2021 Roll Left & Right: 4 Sit to lyin Lying to sitting on side of be: 4 Sit to stand: 3 Chair/nnx-ub-axugi transfer: 3 Toilet transfer: 3 Car transfer: 3 Walk 10 feet: 2 Walk 50 feet with two turns: 1 Walk 150 feet: 1 Does pt use a wc or scooter: Yes Wheel 50ft w/2 turns: 5 Wheel 150 feet: 5 Type: Manual PT Nursing Home Goals Photo Cartographer Goals PT Photo Cartographer Goals Time Frame: May 18, 2021 Roll Left & Right (QC): 6 Sit to Lying (QC): 6 Lying-Sitting on Side/Bed(QC): 6 Sit to Stand (QC): 4 Chair/Lgb-ak-Fvcwk Xfer(QC): 4 Toilet Transfer (QC): 4 Car Transfer (QC): 4 Does the Patient Walk: Yes Walk 10 feet (QC): 3 Walk 50ft with 2 Turns (QC): 3 Walk 150 ft (QC): 3 Walking 10ft on Uneven Surface: 3 1 Step (curb) (QC): 2 4 Steps (QC): 2 12 Steps (QC): 88 Picking up an Object (QC): 3 Does the Pt use WC or Scooter?: Yes Wheel 50 feet with 2 turns (QC: 6 Type: Manual Wheel 150 feet: 6 Type: Manual (6) PT Plan Treatment/Plan Treatment Plan: Continue Plan of Care Treatment Plan: Bed Mobility, Education, Functional Activity [place], Functional Strength, Group Therapy, Gait, Safety, Therapeutic Exercise, Transfers Treatment Duration: May 18, 2021 Frequency: At least 5 of 7 days/Wk (IRF) Estimated Hrs Per Day: 1.5 hours per day Patient and/or Family Agrees t: Yes Safety Risks/Education Patient Education: Transfer Techniques, Correct Positioning, Safety Issues Time/GCodes Time In: 1230 Time Out: 1315 Total Billed Treatment Time: 45 Total Billed Treatment 1,FA45m KRISSY SHEPHERD CRAB CATCHER Apr 30, 2021 13:15
[2021-04-30 19:49] VITALS: BP 106/73
[2021-04-30] MEDS: TOLTERODINE LA 4 MG (DETROL) CAP PO SCH (21:16)
[2021-04-30] MEDS: MELATONIN 10 MG TABLET PO SCH (21:16)
[2021-05-01] MEDS: CATHETER FLUSH 10 ML SYR IV SCH ×3 (06:07→21:24)
[2021-05-01] MEDS: CEFEPIME INJECTION 2,000 MG in NS (IVPB) 50 ML IV SCH ×3 (06:07→21:23)
--- NOTE | 2021-05-01 06:10 | PM&R Progress Note ---
Subjective HPI/CC On Admission Date Seen by Provider: May 01, 2021 Time Seen by Provider: 08:30 Subjective/Events-last exam 05/01/2021: Pt doing really well Transferring herself Wants to go home this week Continence maintained Ulcer is much improved 04/30/2021: Pt doing really well Wound vac is off Purewick is being used, less incontinence Checked meds and labs 04/29/21: Doing very well Motivated to get home by holiday Thornton cath out and using Purewick 04/28/21: Having a good day Thornton cath was set to be changed today so will attempt to leave out and work on bladder routine with Purewick No pain 04/27/2021: Patient doing well No major issues came for family training Working on bowel incontinence 04/26/2021: Patient doing well Getting up to go to the bathroom She wants Thornton catheter out We will work on incontinence due to wound proximity 04/25/21: Pt doing well Bowel regimen will be maintained Getting up to the commode she had a vasovagal syncopal episode She needs to sit up more and she will do that Very slow recovery 04/24/2021: Patient doing well Working on fecal incontinence Bowel routine is the priority today Check meds and labs 04/23/21: Pt doing well Wound vac will be changed today Fecal incontinence noted Bowel routine will be implemented 04/22/2021: Patient doing well Bowels move this morning with fecal incontinence Increase fluid intake is encouraged 04/21/21: Patient doing well Family visited with children Standing and pivoting very well 04/20/2021: Pt doing really well Wound vac was changed IV Zofran given every morning Changed her Scopolamine patch Children will visit tomorrow 04/19/2021: Pt stood and walked two steps today Wedge in left foot in shoe for foot drop has been helpful Zofran IV will be given every morning 04/18/2021: Pt doing well Catheter will be kept until decubitus ulcer heals BNO suppositories will be ordered for bladder spasms IV iron infusions completed Left foot drop is improving 04/17/2021: Pt doing much better Foot drop will be worked on today Getting up and around today Checked meds and labs Nausea improved 04/16/2021: Pt having some nausea Wound vac came off yesterday, replacing that today IV Zofran given for nausea Garett will restart the wound vac Consulting urology for bladder spasms 04/15/2021: Patient doing very well Visitors today No pain is reported Wound VAC in place Fecal incontinence continues 04/14/2021: Patient doing very well today Stood with a walker today at bedside No pain is reported Wound VAC in place 04/13/21: Patient doing well Scop patch resolving the nausea Pain controlled Wound vac changed No issues 04/12/2021: Scopolamine patch working well Patient doing well Wound VAC maintained Check meds and labs No pain Eating and drinking well Scopolamine patch working well 04/11/2021: Patient doing well Fecal incontinence again last night Participating in therapy Wound VAC changed 04/10/2021: Patient doing well No major concerns PICC line dysfunction will be assessed Foot drop will be addressed with AFO Incontinent of bowel last night 04/09/2021: Patient doing really well Labs stable Hemoglobin 8.6 Wound VAC working well Getting ready to go the parallel bars with physical therapy 04/08/2021: Patient doing very well Was up 4 times yesterday out of bed Loose stools only has occurred once May need to use Questran as needed Check meds labs 04/07/2021: Patient doing very well We will get up in chair for lunch Hemoglobin 8.6 Bowels are moving now so on verge of constipation will change Questran to as needed no pain is reported Wound VAC tolerated well Review of Systems General: Fatigue, Malaise Objective Exam Vital Signs Vital Signs Date Time Temp Pulse Resp B/P (MAP) Pulse Ox O2 Delivery O2 Flow Rate FiO2 05/01/21 20:43 Room Air 0.00 05/01/21 20:00 36.4 70 16 105/70 (82) 97 Capillary Refill : General Appearance: No Apparent Distress, WD/WN, Chronically ill, Other (pale, chronically ill) HEENT: PERRL/EOMI, Normal ENT Inspection, Pharynx Normal Neck: Full Range of Motion, Normal Inspection, Non Tender, Supple, Carotid Bruit Respiratory: Chest Non Tender, Lungs Clear, Normal Breath Sounds, No Accessory Muscle Use, No Respiratory Distress Cardiovascular: Regular Rate, Rhythm, No Edema, No Gallop, No JVD, No Murmur, Normal Peripheral Pulses Gastrointestinal: Normal Bowel Sounds, No Organomegaly, No Pulsatile Mass, Non Tender, Soft Back: Normal Inspection, No CVA Tenderness, No Vertebral Tenderness Extremity: Normal Capillary Refill, Normal Inspection, Normal Range of Motion, Non Tender, No Calf Tenderness, No Pedal Edema Neurologic/Psychiatric: Alert, Oriented x3, No Motor/Sensory Deficits, chief lending officer II- XII Norm as Tested, Depressed Affect, Motor Weakness (3/5 upper 1/5 lower) Skin: Normal Color, Warm/Dry, Other (coccyx decubitus ulcer with wound vac) Lymphatic: No Adenopathy Results/Procedures Lab Patient resulted labs reviewed. FIM Transfers Therapy Code Descriptions/Definitions Functional [place] Measure: 0=Not Assessed/NA 4=Minimal Assistance 1=Total Assistance 5=Supervision or Setup 2=Maximal Assistance 6=Modified [place] 3=Moderate Assistance 7=Complete IndependenceSCALE: Activities may be completed with or without assistive devices. 9-Pzcklssckw-numsvpt completes the activity by him/herself with no assistance from a helper. 5-Set-up or Clean-up Assistance-helper sets up or cleans up; patient completes activity. [place] assists only prior to or following the activity. 4-Supervision or Touching Assistance-helper provides verbal cues and/or touching/steadying and/or contact guard assistance as patient completes activity. Assistance may be provided throughout the activity or intermittently. 3-Partial/Moderate Assistance-helper does LESS THAN HALF the effort. [place] lifts, holds or supports trunk or limbs, but provides less than half the effort. 2-Substantial/Maximal Assistance-helper does MORE THAN HALF the effort. [place] lifts or holds trunk or limbs and provides more than half the effort. 0-Kjzygtexw-ofmpat does ALL the effort. Patient does none of the effort to complete the activity. Or, the assistance of 2 or more helpers is required for the patient to complete the activity. If activity was not attempted, code reason: 7-Patient Refused. 9-Not Applicable-not attempted and the patient did not perform the activity before the current illness, exacerbation or injury. 10-Not Attempted due to Environmental Limitations-(lack of equipment, weather restraints, etc.). 88-Not Attempted due to Medical Conditions or Safety Concerns. Roll Left to Right (QC): 6 Sit to Lying (QC): 6 Sit to Stand (QC): 3 Chair/Vgn-ul-Vxzbr Xfer(QC): 4 Car Transfer (QC): 1 Gait Training Does the Patient Walk?: Yes Distance: 5'x2 Walk 10 feet (QC): 88 Walk 50 ft with 2 Turns(QC): 88 Walk 150 ft (QC): 88 Walking 10ft/uneven surface-QC: 88 Gait Persons Needed: 1 Gait Assistive Device: Parallel Bars Wheelchair Training Does the Pt Use a Wheelchair?: Yes Distance: 150 Wheel 50 ft with 2 turns (QC): 5 Wheel 150 ft (QC): 5 Type of Wheelchair: Manual Stair Training #of Steps: 0 1 Step (curb) (QC): 88 4 Steps (QC): 88 12 Steps (QC): 88 Balance Picking up an Object (QC): 88 ADL-Treatment Eating (QC): 6 Oral Hygiene (QC): 5 Shower/Bathe Self (QC): 4 Upper Body Dressing (QC): 5 Lower Body Dressing (QC): 3 On/Off Footwear (QC): 4 Toileting Hygiene (QC): 3 Toilet Transfer (QC): 3 Assessment/Plan Assessment and Plan Assess & Plan/Chief Complaint Assessment: Post Covid with deconditioning s/p severe sepsis Diarrhea Sacral decubitus ulcer now with wound VAC DC Hypokalemia Anemia previous transfusion Anxiety and depression Thornton catheter DC 04/28/21 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 Ongoing nausea improved Scopolamine patch Plan: IV abx Wound vac PT OT Depression meds OAC 04/07/2021: Wound VAC Out of bed 04/08/2021: Out of bed Wound VAC 04/09/2021: Supportive care Dramatic improvement already 04/10/2021: Supportive care Thornton catheter required although it is an infection risk 04/11/2021: Supportive care Wound VAC appreciated 04/12/2021: Scopolamine patch Wound VAC 04/13/21: Scop patch Monitor pain 04/14/2021: Supportive care Wound VAC 04/14/2021: Wound VAC Fecal incontinence management 04/15/2021: Wound VAC management Continue depression treatment 04/16/2021: Supportive care Change wound VAC 04/17/2021: Appreciate wound care Cefepime 04/18/2021: Continue aggressive PT Wound VAC 04/19/2021: Supportive care Hold potassium to see if that helps with nausea 04/20/2021: Supportive care Children will visit tomorrow 04/21/2021: Supportive care Family visiting has helped her morale 04/22/2021: Supportive care Wound VAC management 04/23/2021: Supportive care Wound VAC management 04/24/2021: Supportive care Fecal incontinence management 04/25/21: Fecal incontinence training 04/26/2021: Fecal incontinence management Thornton catheter may be able to be discontinued 04/27/2021: Supportive care Bowel incontinence management 04/28/21: Bowel incontinence improved Leave thornton out 04/29/21: Thornton out 04/30/2021: Supportive care Thornton Wound VAC off 05/01/2021: Supportive care Dramatic improvement (1) Post covid-19 condition, unspecified Status: Chronic (2) Sacral decubitus ulcer, stage IV Status: Chronic (3) Severe sepsis Status: Acute (4) UTI (urinary tract infection) TERRA EDWARDS DO May 01, 2021 06:10
[2021-05-01] MEDS: MULTIVIT W/MINERALS TAB (THERAGRAN M) PO SCH (06:51)
[2021-05-01] MEDS: VENlafaxine XR 75 MG (EFFEXOR XR) CAP PO SCH (06:51)
[2021-05-01 07:40] VITALS: BP 96/52
[2021-05-01] MEDS: OXYBUTYNIN (DITROPAN) 5 MG TAB PO SCH ×3 (08:05→21:23)
[2021-05-01] MEDS: MESALAMINE 250 MG (PENTASA) CAP PO SCH ×3 (08:05→21:23)
[2021-05-01] MEDS: SERTRALINE 50 MG (ZOLOFT) TABLET PO SCH (08:05)
[2021-05-01] MEDS: FERROUS SULF 325 MG (IRON) TAB PO SCH (08:05)
[2021-05-01] MEDS: APIXABAN 5 MG (ELIQUIS) TABLET PO SCH ×2 (08:05→21:23)
--- NOTE | 2021-05-01 09:21 | Occupational Ther Daily Note ---
OT Current Status-Daily Note Subjective Pt in good spirits today, agreeable to treatment. co-treat with PT for part of session ([id number]) due to impaired activity tolerance, fatigue and requiring the skilled assist of 2 to progress mobility and ADLs. Appearance Left sitting in w/c in therapy gym with PT present. Mental Status/Objective Patient Orientation: Person, Place, Time, Situation ADL-Treatment Therapy Code Descriptions/Definitions Functional [place] Measure: 0=Not Assessed/NA 4=Minimal Assistance 1=Total Assistance 5=Supervision or Setup 2=Maximal Assistance 6=Modified [place] 3=Moderate Assistance 7=Complete IndependenceSCALE: Activities may be completed with or without assistive devices. 2-Whgkcsaisc-bwclyig completes the activity by him/herself with no assistance from a helper. 5-Set-up or Clean-up Assistance-helper sets up or cleans up; patient completes activity. [place] assists only prior to or following the activity. 4-Supervision or Touching Assistance-helper provides verbal cues and/or touching/steadying and/or contact guard assistance as patient completes activity. Assistance may be provided throughout the activity or intermittently. 3-Partial/Moderate Assistance-helper does LESS THAN HALF the effort. [place] lifts, holds or supports trunk or limbs, but provides less than half the effort. 2-Substantial/Maximal Assistance-helper does MORE THAN HALF the effort. [place] lifts or holds trunk or limbs and provides more than half the effort. 6-Hmqinjvky-fjgpcp does ALL the effort. Patient does none of the effort to complete the activity. Or, the assistance of 2 or more helpers is required for the patient to complete the activity. If activity was not attempted, code reason: 7-Patient Refused. 9-Not Applicable-not attempted and the patient did not perform the activity before the current illness, exacerbation or injury. 10-Not Attempted due to Environmental Limitations-(lack of equipment, weather restraints, etc.). 88-Not Attempted due to Medical Conditions or Safety Concerns. Eating (QC): 6 Oral Hygiene (QC): 6 Upper Body Dressing (QC): 5 Lower Body Dressing (QC): 3 Toileting Hygiene (QC): 4 Toilet Transfer (QC): 3 Pt with small amount of dried stool under dressing. Assist to clean. RN changed dressing. Stand pivot bed>w/c with CGA-min A. Continues to require cues for set up/preferred hand placement during transfer. Dressing tasks performed seated in w/c. Extra time and use of marketing services specialist to thread BLE's into brief/pants. Pt stood at bedrail with Min A. Able to alternate hand on railing while other managed clothing over hips with min a to pull up completely in the back. Pt fatigues with task and requires lengthy rest break. Grooming activities performed at w/c level, no assist/cues required. Toilet transfer with use of grab bars and steadying assist. Pt able to perform tsering care post voiding but reports difficulty with tsering care after BM secondary to dressing/wound and limited generating station mechanic strength. OT discussed compensatory strategies and use of squirt bottle similar to bidet. Other Treatment Activity completed standing in parallel bars. Goal to increase standing time, balance, LE strength, FM coordination, hand strength, and reducing UE support during functional tasks. While standing, PT focusing on stabilizing L ankle, weight shifting, and balance as OT focused on upright posture, weight shifting, and balance while removing Unilateral UE support during activity. OT strategically placed clothespins on pants in order to simulate task of reaching for clothing management or tsering care. Activity completed x2 on each side with 4 clothespins placed at a time. Pt fatigues quickly during activity and will often sit without warning. Only able to tolerate locating and removing 2 clothespins at a time before needing a rest break. Education OT Patient Education: Correct positioning, Disease process, Energy conservation, Modified ADL techniques, Progress toward Goal/Update tx plan, Purpose of tx/functional activities, Rehab process, Safety issues, Transfer techniques Teaching Recipient: Patient Teaching Methods: Demonstration, Discussion Response to Teaching: Verbalize Understanding, Return Demonstration OT Short Term Goals Short Term Goals Time Frame: Apr 20, 2021 Eatin Oral hygiene: 5 Toileting hygiene: 2 Shower/bathe self: 2 Upper body dressin Lower body dressin Putting on/taking off footwear: 2 OT [facility] Goals Realtime Reporter Goals Time Frame: May 04, 2021 Eating (QC): 6 Oral Hygiene (QC): 5 Toileting Hygiene (QC): 4 Shower/Bathe Self (QC): 4 Upper Body Dressing (QC): 5 Lower Body Dressing (QC): 4 On/Off Footwear (QC): 4 1=Demonstrate adherence to instructed precautions during ADL tasks. 2=Patient will verbalize/demonstrate understanding of assistive devices/modifi cations for ADL. 3=Patient will improve strength/tolerance for activity to enable patient to perform ADL's. OT Education/Plan Problem List/Assessment Assessment: Decreased Activ Tolerance, Decreased UE Strength, Impaired Funct Balance, Impaired I ADL's, Impaired Self-Care Skills Discharge Recommendations Plan/Recommendations: Continue POC Treatment Plan/Plan of Care Treatment,Training & Education: Yes Patient would benefit from OT for education, treatment and training to promote independence in ADL's, mobility, safety and/or upper extremity function for ADL's. Plan of Care: ADL Retraining, Caregiver Training, Functional Mobility, Group Exercise/Act as Ind, UE Funct Exercise/Act, UE Neuromus Re-Ed/Coord, W/C Management Training Treatment Duration: May 04, 2021 Frequency: At least 5 of 7 days/Wk (IRF) Estimated Hrs Per Day: 1.5 hours per day Agreement: Yes Rehab Potential: Fair Time/GCodes Start Time: 07:45 Stop Time: 09:15 Total Time Billed (hr/min): 90 Billed Treatment Time 1 visit ADL x4 (60 min) FA x 2 (30 min) co-treat with PT for 30 minutes Latoya Becker OT May 01, 2021 09:21
--- NOTE | 2021-05-01 09:31 | Physical Therapy Daily Note ---
PT Daily Note-Current Subjective Pt. agrees to Rx, very excited to be discussing DC plans, OT present , toileting with tsering squirt bottle device to perhaps help facilitate tsering hygiene was discussed and bottle was obtained. Pt. reports fatigue with activity Pain Location: No Pain Reported Mental Status Patient Orientation: Normal For Age Transfers SCALE: Activities may be completed with or without assistive devices. 4-Xkpokfzksi-ikifavh completes the activity by him/herself with no assistance from a helper. 5-Set-up or Clean-up Assistance-helper sets up or cleans up; patient completes activity. [place] assists only prior to or following the activity. 4-Supervision or Touching Assistance-helper provides verbal cues and/or touching/steadying and/or contact guard assistance as patient completes activity. Assistance may be provided throughout the activity or intermittently. 3-Partial/Moderate Assistance-helper does LESS THAN HALF the effort. [place] lifts, holds or supports trunk or limbs, but provides less than half the effort. 2-Substantial/Maximal Assistance-helper does MORE THAN HALF the effort. [place] lifts or holds trunk or limbs and provides more than half the effort. 6-[place] does ALL the effort. Patient does none of the effort to complete the activity. Or, the assistance of 2 or more helpers is required for the patient to complete the activity. If activity was not attempted, code reason: 7-Patient Refused. 9-Not Applicable-not attempted and the patient did not perform the activity before the current illness, exacerbation or injury. 10-Not Attempted due to Environmental Limitations-(lack of equipment, weather restraints, etc.). 88-Not Attempted due to Medical Conditions or Safety Concerns. Roll Left & Right (QC): 6 Sit to Lying (QC): 6 Lying to Sitting/Side of Bed(Q: 6 Sit to Stand (QC): 5 Chair/Cny-ws-Biygi Xfer(QC): 5 Toilet Transfer (QC): 5 still experimenting with heights of surfaces and home simulation with regards to TRFs Weight Bearing Right Lower Extremity: Right Full Weight Bearing Left Lower Extremity: Left Full Weight Bearing Patient is cleared medically to bear weight through bilateral LEs, however due to prolonged illness and bed rest, patients LE's very weak and plantarflexion contractures bilaterally Gait Training gait is not functional with FWW, pt. does walk 2-3 steps at // bars with mod assist and w/c close behind . L ankle appears that it is vulnerable to inversion and rolling Wheelchair Training Does the Pt Use a Wheelchair?: Yes Wheel 50 ft with 2 turns (QC): 6 Wheel 150 ft (QC): 6 Type of Wheelchair: Manual Exercises Standing: Sit to Stand, Weight shifts Standing Reps: 10 seated LLE joint approximation wt bearing applied through distal femur directed to put wt through ankle while ankle is protected from rolling/ guided Treatments w/c mob, TRFs, sit to stand co Rx with OT 30 m for coordination of U&L ext funct mob activities Assessment Current Status: Good Progress good progress, meeting goals to return home, pts. latest personal goal to manage toileting and cleaning afterward indep PT Short Term Goals Short Term Goals Time Frame: Apr 20, 2021 Roll Left & Right: 4 Sit to lyin Lying to sitting on side of be: 4 Sit to stand: 3 Chair/kyt-qi-shqtd transfer: 3 Toilet transfer: 3 Car transfer: 3 Walk 10 feet: 2 Walk 50 feet with two turns: 1 Walk 150 feet: 1 Does pt use a wc or scooter: Yes Wheel 50ft w/2 turns: 5 Wheel 150 feet: 5 Type: Manual PT Mcfp Goals Hand Tire Trimmer Goals PT Mcfp Goals Time Frame: May 18, 2021 Roll Left & Right (QC): 6 Sit to Lying (QC): 6 Lying-Sitting on Side/Bed(QC): 6 Sit to Stand (QC): 4 Chair/Fcj-yw-Qjhme Xfer(QC): 4 Toilet Transfer (QC): 4 Car Transfer (QC): 4 Does the Patient Walk: Yes Walk 10 feet (QC): 3 Walk 50ft with 2 Turns (QC): 3 Walk 150 ft (QC): 3 Walking 10ft on Uneven Surface: 3 1 Step (curb) (QC): 2 4 Steps (QC): 2 12 Steps (QC): 88 Picking up an Object (QC): 3 Does the Pt use WC or Scooter?: Yes Wheel 50 feet with 2 turns (QC: 6 Type: Manual Wheel 150 feet: 6 Type: Manual (6) PT Plan Treatment/Plan Treatment Plan: Continue Plan of Care Treatment Plan: Bed Mobility, Education, Functional Activity [place], Functional Strength, Group Therapy, Gait, Safety, Therapeutic Exercise, Transfers Treatment Duration: May 18, 2021 Frequency: At least 5 of 7 days/Wk (IRF) Estimated Hrs Per Day: 1.5 hours per day Patient and/or Family Agrees t: Yes Safety Risks/Education Patient Education: Transfer Techniques, Correct Positioning, W/C Management, Disease Process, Safety Issues Teaching Recipient: Patient Teaching Methods: Demonstration, Discussion Response to Teaching: Verbalize Understanding, Return Demonstration, Reinforcement Needed Time/GCodes Time In: 845 Time Out: 930 Total Billed Treatment Time: 45 Total Billed Treatment 1,FA30m,EX15m,co Rx OT 30m KRISSY SHEPHERD TONE ARTIST APPRENTICE May 01, 2021 09:31
[2021-05-01] MEDS: HYDROcodone/APAP 7.5 MG/325 MG (LORTAB, LORCET PLUS) TABLET PO SCH ×4 (09:50→21:23)
[2021-05-01] MEDS: polyethylene glycoL POWDER 17 GM (MIRALAX) PACK PO SCH ×2 (09:50→21:47)
[2021-05-01] MEDS: ATENOLOL 25 MG (TENORMIN) TAB PO SCH ×2 (09:51→21:23)
[2021-05-01] MEDS: LACTOBACILLUS ACIDOPHILUS (PROBIOTIC) CAPSULE PO SCH ×3 (11:43→17:56)
--- NOTE | 2021-05-01 13:41 | Physical Therapy Daily Note ---
PT Daily Note-Current Subjective Pt. feeling excited to plan DC. Inquires about handicapped placcard for her car. Pain Location: No Pain Reported Mental Status Patient Orientation: Normal For Age Transfers SCALE: Activities may be completed with or without assistive devices. 6-Boxhundfbq-fbgbqju completes the activity by him/herself with no assistance from a helper. 5-Set-up or Clean-up Assistance-helper sets up or cleans up; patient completes activity. [place] assists only prior to or following the activity. 4-Supervision or Touching Assistance-helper provides verbal cues and/or touching/steadying and/or contact guard assistance as patient completes activity. Assistance may be provided throughout the activity or intermittently. 3-Partial/Moderate Assistance-helper does LESS THAN HALF the effort. [place] lifts, holds or supports trunk or limbs, but provides less than half the effort. 2-Substantial/Maximal Assistance-helper does MORE THAN HALF the effort. [place] lifts or holds trunk or limbs and provides more than half the effort. 2-Oeaqylxcd-cykfzh does ALL the effort. Patient does none of the effort to complete the activity. Or, the assistance of 2 or more helpers is required for the patient to complete the activity. If activity was not attempted, code reason: 7-Patient Refused. 9-Not Applicable-not attempted and the patient did not perform the activity before the current illness, exacerbation or injury. 10-Not Attempted due to Environmental Limitations-(lack of equipment, weather restraints, etc.). 88-Not Attempted due to Medical Conditions or Safety Concerns. Sit to Stand (QC): 5 Chair/Yig-iv-Pfhob Xfer(QC): 5 Toilet Transfer (QC): 5 many SPTs w/c to recliner, w/c to Nustep and back, recliner to w/c to bed all with SBA t CGA Weight Bearing Right Lower Extremity: Right Full Weight Bearing Left Lower Extremity: Left Full Weight Bearing Patient is cleared medically to bear weight through bilateral LEs, however due to prolonged illness and bed rest, patients LE's very weak and plantarflexion contractures bilaterally Wheelchair Training Does the Pt Use a Wheelchair?: Yes Type of Wheelchair: Manual 150 ft x 2 many turns, managing brakes and arm rests indep Exercises NuStep Minutes: 10 NuStep Workload: 1 Treatments pt. in bed donned shoes indep rolling and reaching and final push in to one shoe after getting foot o floor. Assessment Current Status: Good Progress PT Short Term Goals Short Term Goals Time Frame: Apr 20, 2021 Roll Left & Right: 4 Sit to lyin Lying to sitting on side of be: 4 Sit to stand: 3 Chair/ntw-pn-mpydp transfer: 3 Toilet transfer: 3 Car transfer: 3 Walk 10 feet: 2 Walk 50 feet with two turns: 1 Walk 150 feet: 1 Does pt use a wc or scooter: Yes Wheel 50ft w/2 turns: 5 Wheel 150 feet: 5 Type: Manual PT Content Strategist Goals Content Strategist Goals PT Content Strategist Goals Time Frame: May 18, 2021 Roll Left & Right (QC): 6 Sit to Lying (QC): 6 Lying-Sitting on Side/Bed(QC): 6 Sit to Stand (QC): 4 Chair/Qpm-dd-Ocdbx Xfer(QC): 4 Toilet Transfer (QC): 4 Car Transfer (QC): 4 Does the Patient Walk: Yes Walk 10 feet (QC): 3 Walk 50ft with 2 Turns (QC): 3 Walk 150 ft (QC): 3 Walking 10ft on Uneven Surface: 3 1 Step (curb) (QC): 2 4 Steps (QC): 2 12 Steps (QC): 88 Picking up an Object (QC): 3 Does the Pt use WC or Scooter?: Yes Wheel 50 feet with 2 turns (QC: 6 Type: Manual Wheel 150 feet: 6 Type: Manual (6) PT Plan Treatment/Plan Treatment Plan: Continue Plan of Care Treatment Plan: Bed Mobility, Education, Functional Activity John [place], Functional Strength, Group Therapy, Gait, Safety, Therapeutic Exercise, Transfers Treatment Duration: May 18, 2021 Frequency: At least 5 of 7 days/Wk (IRF) Estimated Hrs Per Day: 1.5 hours per day Patient and/or Family Agrees t: Yes Safety Risks/Education Patient Education: Transfer Techniques, Correct Positioning, W/C Management, Safety Issues Teaching Recipient: Patient Teaching Methods: Demonstration, Discussion Response to Teaching: Verbalize Understanding, Return Demonstration, Reinforcement Needed Time/GCodes Time In: 1300 Time Out: 1345 Total Billed Treatment Time: 45 Total Billed Treatment 1,FA20m,EX15m,WC10m KRISSY SHEPHERD PTA May 01, 2021 13:41
[2021-05-01 20:00] VITALS: BP 105/70
[2021-05-01] MEDS: TOLTERODINE LA 4 MG (DETROL) CAP PO SCH (21:23)
[2021-05-01] MEDS: MELATONIN 10 MG TABLET PO SCH (21:23)
--- NOTE | 2021-05-02 05:46 | PM&R Progress Note ---
Subjective HPI/CC On Admission Date Seen by Provider: May 02, 2021 Time Seen by Provider: 11:15 Subjective/Events-last exam 05/02/2021: Pt doing really well Changed dressing today Bowels moved yesterday Vomits frequently IV antibiotics of Tobromycin will be changed around and given once a day for an additional ten days 05/01/2021: Pt doing really well Transferring herself Wants to go home this week Continence maintained Ulcer is much improved 04/30/2021: Pt doing really well Wound vac is off Purewick is being used, less incontinence Checked meds and labs 04/29/21: Doing very well Motivated to get home by holiday Thornton cath out and using Purewick 04/28/21: Having a good day Thornton cath was set to be changed today so will attempt to leave out and work on bladder routine with Purewick No pain 04/27/2021: Patient doing well No major issues came for family training Working on bowel incontinence 04/26/2021: Patient doing well Getting up to go to the bathroom She wants Thornton catheter out We will work on incontinence due to wound proximity 04/25/21: Pt doing well Bowel regimen will be maintained Getting up to the commode she had a vasovagal syncopal episode She needs to sit up more and she will do that Very slow recovery 04/24/2021: Patient doing well Working on fecal incontinence Bowel routine is the priority today Check meds and labs 04/23/21: Pt doing well Wound vac will be changed today Fecal incontinence noted Bowel routine will be implemented 04/22/2021: Patient doing well Bowels move this morning with fecal incontinence Increase fluid intake is encouraged 04/21/21: Patient doing well Family visited with children Standing and pivoting very well 04/20/2021: Pt doing really well Wound vac was changed IV Zofran given every morning Changed her Scopolamine patch Children will visit tomorrow 04/19/2021: Pt stood and walked two steps today Wedge in left foot in shoe for foot drop has been helpful Zofran IV will be given every morning 04/18/2021: Pt doing well Catheter will be kept until decubitus ulcer heals BNO suppositories will be ordered for bladder spasms IV iron infusions completed Left foot drop is improving 04/17/2021: Pt doing much better Foot drop will be worked on today Getting up and around today Checked meds and labs Nausea improved 04/16/2021: Pt having some nausea Wound vac came off yesterday, replacing that today IV Zofran given for nausea Garett will restart the wound vac Consulting urology for bladder spasms 04/15/2021: Patient doing very well Visitors today No pain is reported Wound VAC in place Fecal incontinence continues 04/14/2021: Patient doing very well today Stood with a walker today at bedside No pain is reported Wound VAC in place 04/13/21: Patient doing well Scop patch resolving the nausea Pain controlled Wound vac changed No issues 04/12/2021: Scopolamine patch working well Patient doing well Wound VAC maintained Check meds and labs No pain Eating and drinking well Scopolamine patch working well 04/11/2021: Patient doing well Fecal incontinence again last night Participating in therapy Wound VAC changed 04/10/2021: Patient doing well No major concerns PICC line dysfunction will be assessed Foot drop will be addressed with AFO Incontinent of bowel last night 04/09/2021: Patient doing really well Labs stable Hemoglobin 8.6 Wound VAC working well Getting ready to go the parallel bars with physical therapy 04/08/2021: Patient doing very well Was up 4 times yesterday out of bed Loose stools only has occurred once May need to use Questran as needed Check meds labs 04/07/2021: Patient doing very well We will get up in chair for lunch Hemoglobin 8.6 Bowels are moving now so on verge of constipation will change Questran to as needed no pain is reported Wound VAC tolerated well Review of Systems General: Fatigue, Malaise Objective Exam Vital Signs Vital Signs Date Time Temp Pulse Resp B/P (MAP) Pulse Ox O2 Delivery O2 Flow Rate FiO2 05/02/21 22:52 98 Room Air 05/02/21 20:50 36.6 79 20 104/57 (73) 05/01/21 20:43 0.00 Capillary Refill : General Appearance: No Apparent Distress, WD/WN, Chronically ill, Other (pale, chronically ill) HEENT: PERRL/EOMI, Normal ENT Inspection, Pharynx Normal Neck: Full Range of Motion, Normal Inspection, Non Tender, Supple, Carotid Br uit Respiratory: Chest Non Tender, Lungs Clear, Normal Breath Sounds, No Accessory Muscle Use, No Respiratory Distress Cardiovascular: Regular Rate, Rhythm, No Edema, No Gallop, No JVD, No Murmur, Normal Peripheral Pulses Gastrointestinal: Normal Bowel Sounds, No Organomegaly, No Pulsatile Mass, Non Tender, Soft Back: Normal Inspection, No CVA Tenderness, No Vertebral Tenderness Extremity: Normal Capillary Refill, Normal Inspection, Normal Range of Motion, Non Tender, No Calf Tenderness, No Pedal Edema Neurologic/Psychiatric: Alert, Oriented x3, No Motor/Sensory Deficits, wire insulator II- XII Norm as Tested, Depressed Affect, Motor Weakness (3/5 upper 1/5 lower) Skin: Normal Color, Warm/Dry, Other (coccyx decubitus ulcer with wound vac) Lymphatic: No Adenopathy Results/Procedures Lab Patient resulted labs reviewed. FIM Transfers Therapy Code Descriptions/Definitions Functional [place] Measure: 0=Not Assessed/NA 4=Minimal Assistance 1=Total Assistance 5=Supervision or Setup 2=Maximal Assistance 6=Modified [place] 3=Moderate Assistance 7=Complete IndependenceSCALE: Activities may be completed with or without assistive devices. 3-Noszeujwys-cgbiafo completes the activity by him/herself with no assistance from a helper. 5-Set-up or Clean-up Assistance-helper sets up or cleans up; patient completes activity. [place] assists only prior to or following the activity. 4-Supervision or Touching Assistance-helper provides verbal cues and/or touching/steadying and/or contact guard assistance as patient completes activity. Assistance may be provided throughout the activity or intermittently. 3-Partial/Moderate Assistance-helper does LESS THAN HALF the effort. [place] lifts, holds or supports trunk or limbs, but provides less than half the effort. 2-Substantial/Maximal Assistance-helper does MORE THAN HALF the effort. [place] lifts or holds trunk or limbs and provides more than half the effort. 6-Bfbrqnlbr-pqoljq does ALL the effort. Patient does none of the effort to complete the activity. Or, the assistance of 2 or more helpers is required for the patient to complete the activity. If activity was not attempted, code reason: 7-Patient Refused. 9-Not Applicable-not attempted and the patient did not perform the activity before the current illness, exacerbation or injury. 10-Not Attempted due to Environmental Limitations-(lack of equipment, weather restraints, etc.). 88-Not Attempted due to Medical Conditions or Safety Concerns. Roll Left to Right (QC): 6 Sit to Lying (QC): 6 Sit to Stand (QC): 5 Chair/Ghz-bb-Uvcly Xfer(QC): 5 Car Transfer (QC): 1 Gait Training Does the Patient Walk?: Yes Distance: 5'x2 Walk 10 feet (QC): 88 Walk 50 ft with 2 Turns(QC): 88 Walk 150 ft (QC): 88 Walking 10ft/uneven surface-QC: 88 Gait Persons Needed: 1 Gait Assistive Device: Parallel Bars Wheelchair Training Does the Pt Use a Wheelchair?: Yes Distance: 150 Wheel 50 ft with 2 turns (QC): 6 Wheel 150 ft (QC): 6 Type of Wheelchair: Manual Stair Training #of Steps: 0 1 Step (curb) (QC): 88 4 Steps (QC): 88 12 Steps (QC): 88 Balance Picking up an Object (QC): 88 ADL-Treatment Eating (QC): 6 Oral Hygiene (QC): 6 Shower/Bathe Self (QC): 4 Upper Body Dressing (QC): 5 Lower Body Dressing (QC): 3 On/Off Footwear (QC): 4 Toileting Hygiene (QC): 4 Toilet Transfer (QC): 3 Assessment/Plan Assessment and Plan Assess & Plan/Chief Complaint Assessment: Post Covid with deconditioning s/p severe sepsis Diarrhea Sacral decubitus ulcer now with wound VAC DC with osteomyelitis completing antibiotics tobramycin for 10 days at discharge Hypokalemia Anemia previous transfusion Anxiety and depression Thornton catheter DC 04/28/21 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 Ongoing nausea improved Scopolamine patch Plan: IV abx Wound vac PT OT Depression meds OAC 04/07/2021: Wound VAC Out of bed 04/08/2021: Out of bed Wound VAC 04/09/2021: Supportive care Dramatic improvement already 04/10/2021: Supportive care Thornton catheter required although it is an infection risk 04/11/2021: Supportive care Wound VAC appreciated 04/12/2021: Scopolamine patch Wound VAC 04/13/21: Scop patch Monitor pain 04/14/2021: Supportive care Wound VAC 04/14/2021: Wound VAC Fecal incontinence management 04/15/2021: Wound VAC management Continue depression treatment 04/16/2021: Supportive care Change wound VAC 04/17/2021: Appreciate wound care Cefepime 04/18/2021: Continue aggressive PT Wound VAC 04/19/2021: Supportive care Hold potassium to see if that helps with nausea 04/20/2021: Supportive care Children will visit tomorrow 04/21/2021: Supportive care Family visiting has helped her morale 04/22/2021: Supportive care Wound VAC management 04/23/2021: Supportive care Wound VAC management 04/24/2021: Supportive care Fecal incontinence management 04/25/21: Fecal incontinence training 04/26/2021: Fecal incontinence management Thornton catheter may be able to be discontinued 04/27/2021: Supportive care Bowel incontinence management 04/28/21: Bowel incontinence improved Leave thornton out 04/29/21: Thornton out 04/30/2021: Supportive care Thornton Wound VAC off 05/01/2021: Supportive care Dramatic improvement 05/02/2021: Discharge home tomorrow with tobramycin IV antibiotic for an additional 10 days (1) Post covid-19 condition, unspecified Status: Chronic (2) Sacral decubitus ulcer, stage IV Status: Chronic (3) Severe sepsis Status: Acute (4) UTI (urinary tract infection) TERRA EDWARDS DO May 02, 2021 05:46
[2021-05-02] MEDS: CEFEPIME INJECTION 2,000 MG in NS (IVPB) 50 ML IV SCH ×3 (06:05→21:08)
[2021-05-02] MEDS: CATHETER FLUSH 10 ML SYR IV SCH ×3 (06:05→21:10)
[2021-05-02] MEDS: VENlafaxine XR 75 MG (EFFEXOR XR) CAP PO SCH (06:40)
[2021-05-02] MEDS: MULTIVIT W/MINERALS TAB (THERAGRAN M) PO SCH (06:40)
[2021-05-02 07:28] VITALS: BP 102/53
[2021-05-02] MEDS: MESALAMINE 250 MG (PENTASA) CAP PO SCH ×3 (08:26→21:09)
[2021-05-02] MEDS: HYDROcodone/APAP 7.5 MG/325 MG (LORTAB, LORCET PLUS) TABLET PO SCH ×4 (08:26→21:09)
[2021-05-02] MEDS: SERTRALINE 50 MG (ZOLOFT) TABLET PO SCH (08:26)
[2021-05-02] MEDS: APIXABAN 5 MG (ELIQUIS) TABLET PO SCH ×2 (08:26→21:09)
[2021-05-02] MEDS: FERROUS SULF 325 MG (IRON) TAB PO SCH (08:26)
[2021-05-02] MEDS: LACTOBACILLUS ACIDOPHILUS (PROBIOTIC) CAPSULE PO SCH ×3 (08:26→17:14)
[2021-05-02] MEDS: polyethylene glycoL POWDER 17 GM (MIRALAX) PACK PO SCH ×2 (08:27→21:26)
--- NOTE | 2021-05-02 09:23 | Occupational Ther Daily Note ---
OT Current Status-Daily Note Subjective Pt up and ready to go at therapy arrival. Motivated to do well so that she can go home. Co-treat with PT for part of session ([id number]) due to impaired activity tolerance, fatigue and requiring the skilled assist of 2 to progress mobility and ADLs. Appearance Left sitting on toilet with Physical therapy present. Mental Status/Objective Patient Orientation: Person, Place, Time, Situation Attachments: IV ADL-Treatment Therapy Code Descriptions/Definitions Functional [place] Measure: 0=Not Assessed/NA 4=Minimal Assistance 1=Total Assistance 5=Supervision or Setup 2=Maximal Assistance 6=Modified [place] 3=Moderate Assistance 7=Complete IndependenceSCALE: Activities may be completed with or without assistive devices. 0-Qdcroaawjh-zqxecez completes the activity by him/herself with no assistance from a helper. 5-Set-up or Clean-up Assistance-helper sets up or cleans up; patient completes activity. [place] assists only prior to or following the activity. 4-Supervision or Touching Assistance-helper provides verbal cues and/or touching/steadying and/or contact guard assistance as patient completes activity. Assistance may be provided throughout the activity or intermittently. 3-Partial/Moderate Assistance-helper does LESS THAN HALF the effort. [place] lifts, holds or supports trunk or limbs, but provides less than half the effort. 2-Substantial/Maximal Assistance-helper does MORE THAN HALF the effort. [place] lifts or holds trunk or limbs and provides more than half the effort. 5-Nigqsyfoe-writfo does ALL the effort. Patient does none of the effort to complete the activity. Or, the assistance of 2 or more helpers is required for the patient to complete the activity. If activity was not attempted, code reason: 7-Patient Refused. 9-Not Applicable-not attempted and the patient did not perform the activity before the current illness, exacerbation or injury. 10-Not Attempted due to Environmental Limitations-(lack of equipment, weather restraints, etc.). 88-Not Attempted due to Medical Conditions or Safety Concerns. Eating (QC): 6 Oral Hygiene (QC): 6 Shower/Bathe Self (QC): 5 Upper Body Dressing (QC): 6 Lower Body Dressing (QC): 6 On/Off Footwear: 5 Toileting Hygiene (QC): 4 Toilet Transfer (QC): 4 Shower performed; 100% completed in sitting. Set up assist only. Good recall on use of compensatory strategies and adaptive equipment during task. Min-mod a for lifting boost when transferring from shower bench to w/c. Pt able to complete all other transfers with CGA. She retrieved clothes at w/c level and donned them at bed level.Extra time needed to don pants with use of plant quality manager, but no assist required. Clothing management performed in supine as pt bridged at the hips. Pre toileting, pt able to pull clothing below hips with steadying assist and alternating one hand on grab bar at a time. Min a for thoroughness required post BM only secondary to wound/bandage. Grooming tasks performed at w/c level, mod I. Other Treatment Pt participated in FM/hand strengthening activity with large clothespins. When resistance is increased, pt begins to compensate with shoulder abduction. Tactile cues and assist from bilateral hands to squeeze black clothespins. Activity completed x2 with R and L hand. L hand still slightly weaker. Pt also stood in parallel bars and ambulated ~6-7 feet. Goal to increase standing time, balance, LE strength, and weight shifting needed for functional tasks. While standing, PT focusing on stabilizing L ankle, weight shifting, and balance as OT focused on upright posture, weight shifting, and balance. Pt does seem to tolerate better this session but continues to sit quickly when fatigue increases. Education OT Patient Education: Correct positioning, Energy conservation, Modified ADL techniques, Progress toward Goal/Update tx plan, Purpose of tx/functional activities, Rehab process, Safety issues, Transfer techniques Teaching Recipient: Patient Teaching Methods: Discussion Response to Teaching: Verbalize Understanding, Return Demonstration OT Short Term Goals Short Term Goals Time Frame: Apr 20, 2021 Eatin Oral hygiene: 5 Toileting hygiene: 2 Shower/bathe self: 2 Upper body dressin Lower body dressin Putting on/taking off footwear: 2 OT Community Pharmacist Goals Residential Goals Time Frame: May 04, 2021 Eating (QC): 6 Oral Hygiene (QC): 5 Toileting Hygiene (QC): 4 Shower/Bathe Self (QC): 4 Upper Body Dressing (QC): 5 Lower Body Dressing (QC): 4 On/Off Footwear (QC): 4 1=Demonstrate adherence to instructed precautions during ADL tasks. 2=Patient will verbalize/demonstrate understanding of assistive devices/modifications for ADL. 3=Patient will improve strength/tolerance for activity to enable patient to perform ADL's. OT Education/Plan Problem List/Assessment Assessment: Decreased Activ Tolerance, Decreased UE Strength, Impaired Funct Balance, Impaired I ADL's, Impaired Self-Care Skills Discharge Recommendations Plan/Recommendations: Continue POC Target Placement home health Treatment Plan/Plan of Care Treatment,Training & Education: Yes Patient would benefit from OT for education, treatment and training to promote independence in ADL's, mobility, safety and/or upper extremity function for ADL's. Plan of Care: ADL Retraining, Caregiver Training, Functional Mobility, Group Exercise/Act as Ind, UE Funct Exercise/Act, UE Neuromus Re-Ed/Coord, W/C Management Training Treatment Duration: May 04, 2021 Frequency: At least 5 of 7 days/Wk (IRF) Estimated Hrs Per Day: 1.5 hours per day Agreement: Yes Rehab Potential: Fair Time/GCodes Start Time: 07:45 Stop Time: 09:15 Total Time Billed (hr/min): 90 Billed Treatment Time 1 visit ADL x4 (60 min) FA x2 (30 min) Latoya Becker OT May 02, 2021 09:23
--- NOTE | 2021-05-02 09:35 | Physical Therapy Daily Note ---
PT Daily Note-Current Subjective Pt. agrees to Rx. Proud to share she has had awareness of need to urinate and have BM and has made it there without accidents. Pain Location: No Pain Reported Mental Status Patient Orientation: Normal For Age Transfers SCALE: Activities may be completed with or without assistive devices. 2-Pkshiufhzz-fyguuro completes the activity by him/herself with no assistance from a helper. 5-Set-up or Clean-up Assistance-helper sets up or cleans up; patient completes activity. [place] assists only prior to or following the activity. 4-Supervision or Touching Assistance-helper provides verbal cues and/or touching/steadying and/or contact guard assistance as patient completes activity. Assistance may be provided throughout the activity or intermittently. 3-Partial/Moderate Assistance-helper does LESS THAN HALF the effort. [place] l ifts, holds or supports trunk or limbs, but provides less than half the effort. 2-Substantial/Maximal Assistance-helper does MORE THAN HALF the effort. [place] lifts or holds trunk or limbs and provides more than half the effort. 3-Uohluykja-onlbyp does ALL the effort. Patient does none of the effort to complete the activity. Or, the assistance of 2 or more helpers is required for t he patient to complete the activity. If activity was not attempted, code reason: 7-Patient Refused. 9-Not Applicable-not attempted and the patient did not perform the activity before the current illness, exacerbation or injury. 10-Not Attempted due to Environmental Limitations-(lack of equipment, weather restraints, etc.). 88-Not Attempted due to Medical Conditions or Safety Concerns. Roll Left & Right (QC): 6 Sit to Lying (QC): 6 Lying to Sitting/Side of Bed(Q: 6 Sit to Stand (QC): 5 Chair/Ppm-in-Rxxke Xfer(QC): 5 Toilet Transfer (QC): 5 Weight Bearing Right Lower Extremity: Right Full Weight Bearing Left Lower Extremity: Left Full Weight Bearing Patient is cleared medically to bear weight through bilateral LEs, however due to prolonged illness and bed rest, patients LE's very weak and plantarflexion contractures bilaterally Gait Training Does the Patient Walk?: Yes Gait Assistive Device: Parallel Bars 6 ft x 2 // bars CGA and w/c behind her with cues for alignment of LLE /ankle and weight bearing Wheelchair Training Does the Pt Use a Wheelchair?: Yes Wheel 50 ft with 2 turns (QC): 6 Wheel 150 ft (QC): 6 Type of Wheelchair: Manual indep braking, indep to remove and replace arm rests if necessary Exercises Seated Therapy Exercises: Sit to stand Seated Reps: 10 Treatments toileted using tsering rinse bottle with fair to good results cleansing Assessment Current Status: Good Progress PT Short Term Goals Short Term Goals Time Frame: Apr 20, 2021 Roll Left & Right: 4 Sit to lyin Lying to sitting on side of be: 4 Sit to stand: 3 Chair/erl-fp-pmkne transfer: 3 Toilet transfer: 3 Car transfer: 3 Walk 10 feet: 2 Walk 50 feet with two turns: 1 Walk 150 feet: 1 Does pt use a wc or scooter: Yes Wheel 50ft w/2 turns: 5 Wheel 150 feet: 5 Type: Manual PT Damaged Freight Inspector Goals Senior Living Goals PT Senior Living Goals Time Frame: May 18, 2021 Roll Left & Right (QC): 6 Sit to Lying (QC): 6 Lying-Sitting on Side/Bed(QC): 6 Sit to Stand (QC): 4 Chair/Gkv-jb-Mvtwl Xfer(QC): 4 Toilet Transfer (QC): 4 Car Transfer (QC): 4 Does the Patient Walk: Yes Walk 10 feet (QC): 3 Walk 50ft with 2 Turns (QC): 3 Walk 150 ft (QC): 3 Walking 10ft on Uneven Surface: 3 1 Step (curb) (QC): 2 4 Steps (QC): 2 12 Steps (QC): 88 Picking up an Object (QC): 3 Does the Pt use WC or Scooter?: Yes Wheel 50 feet with 2 turns (QC: 6 Type: Manual Wheel 150 feet: 6 Type: Manual (6) PT Plan Treatment/Plan Treatment Plan: Continue Plan of Care Treatment Plan: Bed Mobility, Education, Functional Activity John Paul, Functional Strength, Group Therapy, Gait, Safety, Therapeutic Exercise, Transfers Treatment Duration: May 18, 2021 Frequency: At least 5 of 7 days/Wk (IRF) Estimated Hrs Per Day: 1.5 hours per day Patient and/or Family Agrees t: Yes Safety Risks/Education Patient Education: Gait Training, Transfer Techniques, Correct Positioning, W/C Management, Disease Process, Safety Issues Teaching Recipient: Patient Teaching Methods: Demonstration, Discussion Response to Teaching: Verbalize Understanding, Return Demonstration, Reinforcement Needed Time/GCodes Time In: 845 Time Out: 930 Total Billed Treatment Time: 45 Total Billed Treatment 1,FA45m KRISSY SHEPHERD PAROLE HEARING OFFICER May 02, 2021 09:35
[2021-05-02] MEDS: OXYBUTYNIN (DITROPAN) 5 MG TAB PO SCH ×3 (09:53→21:09)
[2021-05-02 09:54] VITALS: BP 103/54
[2021-05-02] MEDS: ATENOLOL 25 MG (TENORMIN) TAB PO SCH ×2 (09:54→21:09)
[2021-05-02] MEDS: SCOPOLAMINE PATCH REMOVAL TP SCH (11:58)
[2021-05-02] MEDS: SCOPOLAMINE 1.5 MG (TRANSDERM-SCOP) PATCH TD SCH (11:58)
[2021-05-02] MEDS ORDERED: NS IV SCH (13:00)
[2021-05-02] MEDS ORDERED: TOBRAMYCIN IV SCH (13:00)
--- NOTE | 2021-05-02 13:47 | Physical Therapy Daily Note ---
PT Daily Note-Current Subjective Pt. agrees to Rx. Anxious to find out when she might be able to go home. Pain Location: No Pain Reported Mental Status Patient Orientation: Normal For Age Transfers SCALE: Activities may be completed with or without assistive devices. 1-Aglpexszhd-aejwrti completes the activity by him/herself with no assistance from a helper. 5-Set-up or Clean-up Assistance-helper sets up or cleans up; patient completes activity. [place] assists only prior to or following the activity. 4-Supervision or Touching Assistance-helper provides verbal cues and/or touching/steadying and/or contact guard assistance as patient completes activity. Assistance may be provided throughout the activity or intermittently. 3-Partial/Moderate Assistance-helper does LESS THAN HALF the effort. [place] lifts, holds or supports trunk or limbs, but provides less than half the effort. 2-Substantial/Maximal Assistance-helper does MORE THAN HALF the effort. [place] lifts or holds trunk or limbs and provides more than half the effort. 4-Uguritevy-tkhsxx does ALL the effort. Patient does none of the effort to complete the activity. Or, the assistance of 2 or more helpers is required for the patient to complete the activity. If activity was not attempted, code reason: 7-Patient Refused. 9-Not Applicable-not attempted and the patient did not perform the activity before the current illness, exacerbation or injury. 10-Not Attempted due to Environmental Limitations-(lack of equipment, weather restraints, etc.). 88-Not Attempted due to Medical Conditions or Safety Concerns. Rx emphasizing TRFs, car TRF CGA in and out, SPTs bed to w/c to bed to w/c to recliner all SBA to CGA Weight Bearing Right Lower Extremity: Right Full Weight Bearing Left Lower Extremity: Left Full Weight Bearing Patient is cleared medically to bear weight through bilateral LEs, however due to prolonged illness and bed rest, patients LE's very weak and plantarflexion contractures bilaterally Wheelchair Training Does the Pt Use a Wheelchair?: Yes Type of Wheelchair: Manual Treatments w/c mob, TRFs car , chair etc Assessment Current Status: Good Progress PT Short Term Goals Short Term Goals Time Frame: Apr 20, 2021 Roll Left & Right: 4 Sit to lyin Lying to sitting on side of be: 4 Sit to stand: 3 Chair/xgu-nf-ehfen transfer: 3 Toilet transfer: 3 Car transfer: 3 Walk 10 feet: 2 Walk 50 feet with two turns: 1 Walk 150 feet: 1 Does pt use a wc or scooter: Yes Wheel 50ft w/2 turns: 5 Wheel 150 feet: 5 Type: Manual PT Brain Wave Technician Goals Detention Goals PT Detention Goals Time Frame: May 18, 2021 Roll Left & Right (QC): 6 Sit to Lying (QC): 6 Lying-Sitting on Side/Bed(QC): 6 Sit to Stand (QC): 4 Chair/Rsi-ps-Qilwk Xfer(QC): 4 Toilet Transfer (QC): 4 Car Transfer (QC): 4 Does the Patient Walk: Yes Walk 10 feet (QC): 3 Walk 50ft with 2 Turns (QC): 3 Walk 150 ft (QC): 3 Walking 10ft on Uneven Surface: 3 1 Step (curb) (QC): 2 4 Steps (QC): 2 12 Steps (QC): 88 Picking up an Object (QC): 3 Does the Pt use WC or Scooter?: Yes Wheel 50 feet with 2 turns (QC: 6 Type: Manual Wheel 150 feet: 6 Type: Manual (6) PT Plan Treatment/Plan Treatment Plan: Continue Plan of Care Treatment Plan: Bed Mobility, Education, Functional Activity John Paul, Functional Strength, Group Therapy, Gait, Safety, Therapeutic Exercise, Transfers Treatment Duration: May 18, 2021 Frequency: At least 5 of 7 days/Wk (IRF) Estimated Hrs Per Day: 1.5 hours per day Patient and/or Family Agrees t: Yes Safety Risks/Education Patient Education: Transfer Techniques, Correct Positioning, Safety Issues Teaching Recipient: Patient Teaching Methods: Demonstration, Discussion Response to Teaching: Verbalize Understanding, Return Demonstration, Reinforcement Needed Time/GCodes Time In: 1300 Time Out: 1345 Total Billed Treatment Time: 45 Total Billed Treatment 1,FA45m KRISSY SHEPHERD ADVANCED RESEARCH PROGRAMS DIRECTOR May 02, 2021 13:47
[2021-05-02] MEDS ORDERED: TOBRAMYCIN IV ×2 (14:59→15:01)
[2021-05-02 20:50] VITALS: BP 104/57
[2021-05-02] MEDS: MELATONIN 10 MG TABLET PO SCH (21:09)
[2021-05-02] MEDS: TOLTERODINE LA 4 MG (DETROL) CAP PO SCH (21:09)
[2021-05-03] MEDS ORDERED: LACT1CAP7 PO (05:52)
[2021-05-03] MEDS ORDERED: SERT-413 PO (05:52)
[2021-05-03] MEDS ORDERED: OXYB5TAB13 PO (05:52)
[2021-05-03] MEDS ORDERED: CHOL4PAC3 PO (05:52)
[2021-05-03] MEDS ORDERED: MULT-1136 PO (05:52)
[2021-05-03] MEDS ORDERED: MELA5TAB14 PO (05:52)
[2021-05-03] MEDS ORDERED: MICO14CR7 TP (05:52)
[2021-05-03] MEDS ORDERED: HYDR-3817 PO (05:52)
[2021-05-03] MEDS ORDERED: RT-ALBUINH IH (05:52)
[2021-05-03] MEDS ORDERED: APIX5TAB PO (05:52)
[2021-05-03] MEDS ORDERED: BALS60OI TP (05:52)
[2021-05-03] MEDS ORDERED: ATEN25TA PO (05:52)
[2021-05-03] MEDS ORDERED: VENL75CA93 PO (05:52)
[2021-05-03] MEDS ORDERED: ATOR40TA70 PO (05:52)
[2021-05-03] MEDS ORDERED: COLL30OI TP (05:52)
[2021-05-03] MEDS ORDERED: ASPI-999 PO (05:52)
[2021-05-03] MEDS ORDERED: MESA250C PO (05:52)
[2021-05-03] MEDS ORDERED: ERGO1250 PO (05:52)
[2021-05-03] MEDS ORDERED: ONDA4TAB11 PO (05:52)
[2021-05-03] MEDS ORDERED: TOLTA4 PO (05:52)
[2021-05-03] MEDS ORDERED: SCOP1PAT10 TD (05:52)
[2021-05-03] MEDS ORDERED: LOPE2TAB48 PO (05:52)
[2021-05-03] MEDS ORDERED: FERR325T5 PO (05:52)
--- NOTE | 2021-05-03 05:53 | D/C HH Face to Face Order ---
D/C HH Face to Face Orders Reconcile Patient Problems Problems Reviewed?: Yes Instructions for Patient HH Patient Instructions/FollowUp: PCP 2 weeks Physician to follow Patient: PCP Discharge Diet for Home: Regular Diet Patient Problems: Post COVID Patient Data-Allergies,Ht & Wt Patient Allergies: Coded Allergies: No Known Drug Allergies (Unverified , 03/28/21) Home Health Need/Face to Face Date of Face to Face: May 03, 2021 Clinical Findings: Generalized weakness and fatigue, Instability, Muscle weakness, Shortness of breath, Unsteady gait I have seen Pt [id number]: Yes Discharged To: Home Diagnosis/Conditions: Post COVID Patient is Homebound due to: Nad[place] fall risk due to instabilty, Muscle weakness, Shortness of breath/distress Homebound Status Due to the above stated illness, injury or surgical procedure (medical condition or diagnosis) and associated clinical findings, the patient is homebound because of his/her inability to leave home except with aid of a supportive device and/or person AND leaving the home requires a considerable and taxing effort or is medically contraindicated. Pt req the following assistanc: Walker, Wheelchair Home Health Nursing Orders Home Health Services Order: Nursing Services, Ensemble Member-Evaluate & Treat, Physical Therapy-Evaluate & Treat, Wound Care-Eval/Treat Certify Stmt I certify that this patient is under my care and that I, a nurse practitioner or a physician; a assistant superintendent for curriculum working with me, had a face to face encounter that - meets the physician face to face encounter requirements with this patient as dated. TERRA EDWARDS DO May 03, 2021 05:53
--- NOTE | 2021-05-03 05:54 | Discharge Summary ---
Diagnosis/Chief Complaint Date of Admission Apr 06, 2021 at 09:52 Date of Discharge Discharge Date: May 03, 2021 Discharge Summary Discharge Physical Examination Allergies: Coded Allergies: No Known Drug Allergies (Unverified , 03/28/21) Vitals & I&Os Vital Signs Date Time Temp Pulse Resp B/P (MAP) Pulse Ox O2 Delivery O2 Flow Rate FiO2 05/03/21 21:15 Room Air 05/03/21 19:39 36.0 98 18 102/58 (73) 95 05/03/21 07:37 0.00 Hospital Course Labs (last 24 hrs) Laboratory Tests 04/07/21 06:00: White Blood Count 6.6, Red Blood Count 2.82L, Hemoglobin 8.6L, Hematocrit 29L, Mean Corpuscular Volume 101H, Mean Corpuscular Hemoglobin 31, Mean Corpuscular Hemoglobin Concent 30L, Red Cell Distribution Width 16.2H, Platelet Count 237, Mean Platelet Volume 9.3, Immature Granulocyte % (Auto) 1, Neutrophils (%) (Auto ) 45, Lymphocytes (%) (Auto) 38, Monocytes (%) (Auto) 10, Eosinophils (%) (Auto) 6, Basophils (%) (Auto) 1, Neutrophils # (Auto) 3.0, Lymphocytes # (Auto) 2.5, Monocytes # (Auto) 0.7, Eosinophils # (Auto) 0.4H, Basophils # (Auto) 0.1, Immature Granulocyte # (Auto) 0.0, Sodium Level 142, Potassium Level 3.6, Chloride Level 114H, Carbon Dioxide Level 20L, Anion Gap 8, Blood Urea Nitrogen 12, Creatinine 0.66, Estimat Glomerular Filtration Rate 100, BUN/Creatinine Ratio 18, Glucose Level 77, Calcium Level 8.0L, Corrected Calcium 9.0, Total Bilirubin 0.4, Aspartate Amino Transf (AST/SGOT) 18, Alanine Aminotransferase (ALT/SGPT) 13, Alkaline Phosphatase 65, Total Protein 4.6L, Albumin 2.8L 04/11/21 11:35: White Blood Count 5.1, Red Blood Count 2.78L, Hemoglobin 8.5L, Hematocrit 28L, Mean Corpuscular Volume 101H, Mean Corpuscular Hemoglobin 31, Mean Corpuscular Hemoglobin Concent 30L, Red Cell Distribution Width 16.4H, Platelet Count 225, Mean Platelet Volume 10.2, Immature Granulocyte % (Auto) 0, Neutrophils (%) (Auto) 55, Lymphocytes (%) (Auto) 26, Monocytes (%) (Auto) 13H, Eosinophils (%) (Auto) 5, Basophils (%) (Auto) 1, Neutrophils # (Auto) 2.8, Lymphocytes # (Auto) 1.3, Monocytes # (Auto) 0.7, Eosinophils # (Auto) 0.3, Basophils # (Auto) 0.1, Immature Granulocyte # (Auto) 0.0, Sodium Level 142, Potassium Level 3.4L, Chloride Level 112H, Carbon Dioxide Level 21, Anion Gap 9, Blood Urea Nitrogen 15, Creatinine 0.67, Estimat Glomerular Filtration Rate 99, BUN/Creatinine Ratio 22, Glucose Level 96, Calcium Level 8.2L, Corrected Calcium 9.3, Total Bilirubin 0.4, Aspartate Amino Transf (AST/SGOT) 21, Alanine Aminotransferase (ALT/SGPT) 14, Alkaline Phosphatase 74, Total Protein 4.4L, Albumin 2.6L 04/16/21 06:15: White Blood Count 6.4, Red Blood Count 3.08L, Hemoglobin 9.5L, Hematocrit 31L, Mean Corpuscular Volume 101H, Mean Corpuscular Hemoglobin 31, Mean Corpuscular Hemoglobin Concent 31L, Red Cell Distribution Width 16.3H, Platelet Count 323, Mean Platelet Volume 9.8, Immature Granulocyte % (Auto) 1, Neutrophils (%) (Auto) 32L, Lymphocytes (%) (Auto) 47H, Monocytes (%) (Auto) 11, Eosinophils (%) (Auto) 7, Basophils (%) (Auto) 2, Neutrophils # (Auto) 2.1, Lymphocytes # (Auto) 3.0, Monocytes # (Auto) 0.7, Eosinophils # (Auto) 0.5H, Basophils # (Auto) 0.1, Immature Granulocyte # (Auto) 0.0, Sodium Level 142, Potassium Level 4.0, C hloride Level 111H, Carbon Dioxide Level 21, Anion Gap 10, Blood Urea Nitrogen 13, Creatinine 0.72, Estimat Glomerular Filtration Rate 91, BUN/Creatinine Ratio 18, Glucose Level 82, Calcium Level 8.4L, Corrected Calcium 9.4, Total Bilirubin 0.3, Aspartate Amino Transf (AST/SGOT) 21, Alanine Aminotransferase (ALT/SGPT) 17, Alkaline Phosphatase 73, Total Protein 4.7L, Albumin 2.7L 04/16/21 17:29: Urine Color YELLOW, Urine Clarity CLEAR, Urine pH 6.0, Urine Specific [place] 1.010L, Urine Protein 1+H, Urine Glucose (UA) NEGATIVE, Urine Ketones NEGATIVE, Urine Nitrite NEGATIVE, Urine Bilirubin NEGATIVE, Urine Urobilinogen 0.2, Urine Leukocyte Esterase NEGATIVE, Urine RBC (Auto) 3+H, Urine RBC 25-50H, Urine WBC 5-10H, Urine Squamous Epithelial Cells NONE, Urine Renal Epithelial Cells NONE, Urine Crystals PRESENTH, Urine Calcium Oxalate Crystals FEWH, Urine Bacteria NEGATIVE, Urine Casts NONE, Urine Mucus NEGATIVE, Urine Culture Indicated NO 04/23/21 06:30: White Blood Count 6.5, Red Blood Count 3.22L, Hemoglobin 10.0L, Hematocrit 33L, Mean Corpuscular Volume 101H, Mean Corpuscular Hemoglobin 31, Mean Corpuscular Hemoglobin Concent 31L, Red Cell Distribution Width 16.0H, Platelet Count 324, Mean Platelet Volume 9.4, Immature Granulocyte % (Auto) 1, Neutrophils (%) (Auto) 47, Lymphocytes (%) (Auto) 35, Monocytes (%) (Auto) 11, Eosinophils (%) (Auto) 5, Basophils (%) (Auto) 1, Neutrophils # (Auto) 3.1, Lymphocytes # (Auto) 2.3, Monocytes # (Auto) 0.7, Eosinophils # (Auto) 0.3, Basophils # (Auto) 0.1, Immature Granulocyte # (Auto) 0.1, Sodium Level 142, Potassium Level 3.4L, Chloride Level 112H, Carbon Dioxide Level 21, Anion Gap 9, Blood Urea Nitrogen 16, Creatinine 0.75, Estimat Glomerular Filtration Rate 86, BUN/Creatinine Ratio 21, Glucose Level 77, Calcium Level 10.0, Corrected Calcium 11.3H, Total Bilirubin 0.3, Aspartate Amino Transf (AST/SGOT) 20, Alanine Aminotransferase (ALT/SGPT) 19, Alkaline Phosphatase 72, Total Protein 4.4L, Albumin 2.4L 04/30/21 06:14: White Blood Count 7.3, Red Blood Count 3.03L, Hemoglobin 9.5L, Hematocrit 31L, Mean Corpuscular Volume 102H, Mean Corpuscular Hemoglobin 31, Mean Corpuscular Hemoglobin Concent 31L, Red Cell Distribution Width 16.3H, Platelet Count 286, Mean Platelet Volume 9.8, Immature Granulocyte % (Auto) 1, Neutrophils (%) (Auto) 44, Lymphocytes (%) (Auto) 39, Monocytes (%) (Auto) 11, Eosinophils (%) (Auto) 4, Basophils (%) (Auto) 1, Neutrophils # (Auto) 3.2, Lymphocytes # (Auto) 2.9, Monocytes # (Auto) 0.8, Eosinophils # (Auto) 0.3, Basophils # (Auto) 0.1, Immature Granulocyte # (Auto) 0.0, Sodium Level 143, Potassium Level 3.6, Chloride Level 114H, Carbon Dioxide Level 21, Anion Gap 8, Blood Urea Nitrogen 17, Creatinine 0.72, Estimat Glomerular Filtration Rate 91, BUN/Creatinine Ratio 24, Glucose Level 85, Calcium Level 8.2L, Corrected Calcium 9.6, Total Bilirubin 0.2, Aspartate Amino Transf (AST/SGOT) 19, Alanine Aminotransferase (ALT/SGPT) 19, Alkaline Phosphatase 58, Total Protein 4.2L, Albumin 2.3L 05/02/21 23:10: Random Tobramycin Level > 10.0H 05/03/21 10:29: Tobramycin Level Trough 6.4*H Pending Labs Laboratory Tests 04/07/21 06:00: White Blood Count 6.6, Red Blood Count 2.82, Hemoglobin 8.6, Hematocrit 29, Mean Corpuscular Volume 101, Mean Corpuscular Hemoglobin 31, Mean Corpuscular Hemoglobin Concent 30, Red Cell Distribution Width 16.2, Platelet Count 237, Mean Platelet Volume 9.3, Immature Granulocyte % (Auto) 1, Neutrophils (%) (Auto) 45, Lymphocytes (%) (Auto) 38, Monocytes (%) (Auto) 10, Eosinophils (%) (Auto) 6, Basophils (%) (Auto) 1, Neutrophils # (Auto) 3.0, Lymphocytes # (Auto) 2.5, Monocytes # (Auto) 0.7, Eosinophils # (Auto) 0.4, Basophils # (Auto) 0.1, Immature Granulocyte # (Auto) 0.0, Sodium Level 142, Potassium Level 3.6, Chloride Level 114, Carbon Dioxide Level 20, Anion Gap 8, Blood Urea Nitrogen 12, Creatinine 0.66, Estimat Glomerular Filtration Rate 100, BUN/Creatinine Ratio 18, Glucose Level 77, Calcium Level 8.0, Corrected Calcium 9.0, Total Bilirubin 0.4, Aspartate Amino Transf (AST/SGOT) 18, Alanine Aminotransferase (ALT/SGPT) 13, Alkaline Phosphatase 65, Total Protein 4.6, Albumin 2.8 04/11/21 11:35: White Blood Count 5.1, Red Blood Count 2.78, Hemoglobin 8.5, Hematocrit 28, Mean Corpuscular Volume 101, Mean Corpuscular Hemoglobin 31, Mean Corpuscular Hemoglobin Concent 30, Red Cell Distribution Width 16.4, Platelet Count 225, Mean Platelet Volume 10.2, Immature Granulocyte % (Auto) 0, Neutrophils (%) (Auto) 55, Lymphocytes (%) (Auto) 26, Monocytes (%) (Auto) 13, Eosinophils (%) (Auto) 5, Basophils (%) (Auto) 1, Neutrophils # (Auto) 2.8, Lymphocytes # (Auto) 1.3, Monocytes # (Auto) 0.7, Eosinophils # (Auto) 0.3, Basophils # (Auto) 0.1, Immature Granulocyte # (Auto) 0.0, Sodium Level 142, Potassium Level 3.4, Chloride Level 112, Carbon Dioxide Level 21, Anion Gap 9, Blood Urea Nitrogen 15, Creatinine 0.67, Estimat Glomerular Filtration Rate 99, BUN/Creatinine Ratio 22, Glucose Level 96, Calcium Level 8.2, Corrected Calcium 9.3, Total Bilirubin 0.4, Aspartate Amino Transf (AST/SGOT) 21, Alanine Aminotransferase (ALT/SGPT) 14, Alkaline Phosphatase 74, Total Protein 4.4, Albumin 2.6 04/16/21 06:15: White Blood Count 6.4, Red Blood Count 3.08, Hemoglobin 9.5, Hematocrit 31, Mean Corpuscular Volume 101, Mean Corpuscular Hemoglobin 31, Mean Corpuscular Hemoglobin Concent 31, Red Cell Distribution Width 16.3, Platelet Count 323, Mean Platelet Volume 9.8, Immature Granulocyte % (Auto) 1, Neutrophils (%) (Auto) 32, Lymphocytes (%) (Auto) 47, Monocytes (%) (Auto) 11, Eosinophils (%) (Auto) 7, Basophils (%) (Auto) 2, Neutrophils # (Auto) 2.1, Lymphocytes # (Auto) 3.0, Monocytes # (Auto) 0.7, Eosinophils # (Auto) 0.5, Basophils # (Auto) 0.1, Immature Granulocyte # (Auto) 0.0, Sodium Level 142, Potassium Level 4.0, Chloride Level 111, Carbon Dioxide Level 21, Anion Gap 10, Blood Urea Nitrogen 13, Creatinine 0.72, Estimat Glomerular Filtration Rate 91, BUN/Creatinine Ratio 18, Glucose Level 82, Calcium Level 8.4, Corrected Calcium 9.4, Total Bilirubin 0.3, Aspartate Amino Transf (AST/SGOT) 21, Alanine Aminotransferase (ALT/SGPT) 17, Alkaline Phosphatase 73, Total Protein 4.7, Albumin 2.7 04/16/21 17:29: Urine Color YELLOW, Urine Clarity CLEAR, Urine pH 6.0, Urine Specific [place] 1.010, Urine Protein 1+, Urine Glucose (UA) NEGATIVE, Urine Ketones NEGATIVE, Urine Nitrite NEGATIVE, Urine Bilirubin NEGATIVE, Urine Urobilinogen 0.2, Urine Leukocyte Esterase NEGATIVE, Urine RBC (Auto) 3+, Urine RBC 25-50, Urine WBC 5- 10, Urine Squamous Epithelial Cells NONE, Urine Renal Epithelial Cells NONE, Urine Crystals PRESENT, Urine Calcium Oxalate Crystals FEW, Urine Bacteria NEGATIVE, Urine Casts NONE, Urine Mucus NEGATIVE, Urine Culture Indicated NO 04/23/21 06:30: White Blood Count 6.5, Red Blood Count 3.22, Hemoglobin 10.0, Hematocrit 33, Mean Corpuscular Volume 101, Mean Corpuscular Hemoglobin 31, Mean Corpuscular Hemoglobin Concent 31, Red Cell Distribution Width 16.0, Platelet Count 324, Mean Platelet Volume 9.4, Immature Granulocyte % (Auto) 1, Neutrophils (%) (Auto) 47, Lymphocytes (%) (Auto) 35, Monocytes (%) (Auto) 11, Eosinophils (%) (Auto) 5, Basophils (%) (Auto) 1, Neutrophils # (Auto) 3.1, Lymphocytes # (Auto) 2.3, Monocytes # (Auto) 0.7, Eosinophils # (Auto) 0.3, Basophils # (Auto) 0.1, Immature Granulocyte # (Auto) 0.1, Sodium Level 142, Potassium Level 3.4, Chloride Level 112, Carbon Dioxide Level 21, Anion Gap 9, Blood Urea Nitrogen 16, Creatinine 0.75, Estimat Glomerular Filtration Rate 86, BUN/Creatinine Ratio 21, Glucose Level 77, Calcium Level 10.0, Corrected Calcium 11.3, Total Bilirubin 0.3, Aspartate Amino Transf (AST/SGOT) 20, Alanine Aminotransferase (ALT/SGPT) 19, Alkaline Phosphatase 72, Total Protein 4.4, Albumin 2.4 04/30/21 06:14: White Blood Count 7.3, Red Blood Count 3.03, Hemoglobin 9.5, Hematocrit 31, Mean Corpuscular Volume 102, Mean Corpuscular Hemoglobin 31, Mean Corpuscular Hemoglobin Concent 31, Red Cell Distribution Width 16.3, Platelet Count 286, Mean Platelet Volume 9.8, Immature Granulocyte % (Auto) 1, Neutrophils (%) (Auto) 44, Lymphocytes (%) (Auto) 39, Monocytes (%) (Auto) 11, Eosinophils (%) (Auto) 4, Basophils (%) (Auto) 1, Neutrophils # (Auto) 3.2, Lymphocytes # (Auto) 2.9, Monocytes # (Auto) 0.8, Eosinophils # (Auto) 0.3, Basophils # (Auto) 0.1, Immature Granulocyte # (Auto) 0.0, Sodium Level 143, Potassium Level 3.6, Chl oride Level 114, Carbon Dioxide Level 21, Anion Gap 8, Blood Urea Nitrogen 17, Creatinine 0.72, Estimat Glomerular Filtration Rate 91, BUN/Creatinine Ratio 24, Glucose Level 85, Calcium Level 8.2, Corrected Calcium 9.6, Total Bilirubin 0.2, Aspartate Amino Transf (AST/SGOT) 19, Alanine Aminotransferase (ALT/SGPT) 19, Alkaline Phosphatase 58, Total Protein 4.2, Albumin 2.3 05/02/21 23:10: Random Tobramycin Level > 10.0 05/03/21 10:29: Tobramycin Level Trough 6.4 Discharge Home Medications: Active Scripts Active Detrol LA (Tolterodine Tartrate) 4 Mg Cap 4 Mg PO HS Transderm-Scop (Scopolamine) 1 Each Patch.td72 1.5 Mg TD Q72H Venlafaxine HCl ER (Venlafaxine HCl) 75 Mg Cap.er.24h 75 Mg PO DAILY@0700 Sertraline HCl 50 Mg Tablet 100 Mg PO DAILY Prevalite Packet (Cholestyramine/Aspartame) 4 Gm Powd.pack 4 Gm PO ACHS PRN Santyl (Collagenase) 30 Gm Oint..gm. 1 Applic TP BID APPLY TO SACRAL WOUND EVERY DAY AND COMMUNICATION SKILLS INSTRUCTOR Venelex Ointment (Balsam [place] Oil) 60 Gm Oint...g. 1 Applic TP UD APPLY TO SACRUM WITH EVERY SHIFT CHANGE Ondansetron Odt (Ondansetron) 4 Mg Tab.rapdis 4 Mg PO Q8H PRN Pentasa (Mesalamine) 250 Mg Capsule.er 250 Mg PO TID Oxybutynin Chloride 5 Mg Tablet 5 Mg PO TID Multivitamin 1 Each Tablet 1 Each PO DAILY Antifungal Cream (Miconazole Nitrate) 14 Gm Cream..g. 1 Applic TP Q8H PRN Melatonin 5 Mg Tablet 5 Mg PO HS Ultra A-D (Loperamide HCl) 2 Mg Tablet 2 Mg PO DAILY Hydrocodone-Acetamin 7.5-325 (Hydrocodone/Acetaminophen) 1 Each Tablet 1 Each PO QID Ferrous Sulfate 325 Mg Tablet.dr 325 Mg PO DAILY Vitamin D2 (Ergocalciferol (Vitamin D2)) 1,250 Mcg Capsule 1,250 Mcg PO MON Eliquis (Apixaban) 5 Mg Tablet 5 Mg PO BID Atorvastatin Calcium 40 Mg Tablet 40 Mg PO HS Atenolol 25 Mg Tablet 25 Mg PO BID HOLD FOR SBP <100 OR PULSE <60 Aspirin 81 Mg Tab.chew 81 Mg PO DAILY Proair Hfa (Albuterol Sulfate) 1 Puff Puff 2 Puff IH Q6H PRN Acidophilus-Pectin Capsule (Lactobacillus Acidophilus/Pect) 1 Each Capsule 1 Each PO BID [Tobramycin] 490 Mg IV DAILY 10 Days Reported Sertraline HCl 50 Mg Tablet 50 Mg PO DAILY Narcan (Naloxone HCl) 4 Mg [place] 1 Sprays NA UD PRN USE 1 SPRAY IN 1 NOSTRIL AND MAY REPEAT ALTERNATING NOSTRIL EVERY 2-3 MINUTES UNTIL RESPONSIVE OR EMS ARRIVES Tylenol (Acetaminophen) 325 Mg Tablet 650 Mg PO Q4H PRN Instructions to patient/family Please see electronic discharge instructions given to patient. Diagnosis/Problems Diagnosis/Problems (1) Post covid-19 condition, unspecified Status: Chronic (2) Sacral decubitus ulcer, stage IV Status: Chronic (3) Severe sepsis Status: Acute (4) UTI (urinary tract infection) TERRA EDWARDS DO May 03, 2021 05:54
[2021-05-03] MEDS: CATHETER FLUSH 10 ML SYR IV SCH ×3 (06:02→21:25)
[2021-05-03] MEDS: CEFEPIME INJECTION 2,000 MG in NS (IVPB) 50 ML IV SCH ×3 (06:02→21:25)
[2021-05-03] MEDS: MULTIVIT W/MINERALS TAB (THERAGRAN M) PO SCH (06:36)
[2021-05-03] MEDS: VENlafaxine XR 75 MG (EFFEXOR XR) CAP PO SCH ×2 (06:36→09:18)
[2021-05-03 08:30] VITALS: BP 121/77
[2021-05-03] MEDS: polyethylene glycoL POWDER 17 GM (MIRALAX) PACK PO SCH ×2 (09:00→21:25)
[2021-05-03] MEDS: SERTRALINE 50 MG (ZOLOFT) TABLET PO SCH (09:17)
[2021-05-03] MEDS: FERROUS SULF 325 MG (IRON) TAB PO SCH (09:18)
[2021-05-03] MEDS: LACTOBACILLUS ACIDOPHILUS (PROBIOTIC) CAPSULE PO SCH ×3 (09:18→17:57)
[2021-05-03] MEDS: OXYBUTYNIN (DITROPAN) 5 MG TAB PO SCH ×3 (09:18→21:20)
[2021-05-03] MEDS: APIXABAN 5 MG (ELIQUIS) TABLET PO SCH ×2 (09:18→21:20)
[2021-05-03] MEDS: HYDROcodone/APAP 7.5 MG/325 MG (LORTAB, LORCET PLUS) TABLET PO SCH ×4 (09:18→21:20)
[2021-05-03] MEDS: MESALAMINE 250 MG (PENTASA) CAP PO SCH ×3 (09:18→21:19)
[2021-05-03] MEDS: ATENOLOL 25 MG (TENORMIN) TAB PO SCH ×2 (09:18→21:20)
--- NOTE | 2021-05-03 09:20 | Occupational Ther Daily Note ---
OT Current Status-Daily Note Subjective Denies pain, agreeable to treatment. Co-treat with PT for part of session (0815- 00) due to impaired activity tolerance, fatigue and requiring the skilled assist of 2 to progress mobility and ADLs. Appearance Left sitting in recliner, all needs within reach. Mental Status/Objective Patient Orientation: Person, Place, Time, Situation Attachments: IV ADL-Treatment Therapy Code Descriptions/Definitions Functional [place] Measure: 0=Not Assessed/NA 4=Minimal Assistance 1=Total Assistance 5=Supervision or Setup 2=Maximal Assistance 6=Modified [place] 3=Moderate Assistance 7=Complete IndependenceSCALE: Activities may be completed with or without assistive devices. 6-[id number] completes the activity by him/herself with no assistance from a helper. 5-Set-up or Clean-up Assistance-helper sets up or cleans up; patient completes activity. [place] assists only prior to or following the activity. 4-Supervision or Touching Assistance-helper provides verbal cues and/or touching/steadying and/or contact guard assistance as patient completes activity. Assistance may be provided throughout the activity or intermittently. 3-Partial/Moderate Assistance-helper does LESS THAN HALF the effort. [place] lifts, holds or supports trunk or limbs, but provides less than half the effort. 2-Substantial/Maximal Assistance-helper does MORE THAN HALF the effort. [place] lifts or holds trunk or limbs and provides more than half the effort. 0-[id number] does ALL the effort. Patient does none of the effort to complete the activity. Or, the assistance of 2 or more helpers is required for the patient to complete the activity. If activity was not attempted, code reason: 7-Patient Refused. 9-Not Applicable-not attempted and the patient did not perform the activity before the current illness, exacerbation or injury. 10-Not Attempted due to Environmental Limitations-(lack of equipment, weather restraints, etc.). 88-Not Attempted due to Medical Conditions or Safety Concerns. Eating (QC): 6 Oral Hygiene (QC): 6 Upper Body Dressing (QC): 6 Lower Body Dressing (QC): 6 On/Off Footwear: 5 Toileting Hygiene (QC): 4 Toilet Transfer (QC): 4 Clothes donned at bed level. Extra time to thread LE's with washerette machine operator, but no physical assist required. Clothing management performed supine and while pt bridged at hips. Improved use of sock aid this date, needing set up assist only. Once in w/c, pt able to complete grooming tasks sitting at the sink without assist. Steadying assist required as she stood to manage clothing over hips pre/post toileting task. Other Treatment As PT stretched L ankle, OT focused on UE fine motor/dexterity skills with nut/bolt board. Occasional cues for incorporating index finger. Unable to fasten tightly due to limited strength, but does show improvement from last attempt. Pt also completed gait/standing balance activities in parallel bars. PT focusing on stabilizing ankle and weight shifting as OT focused on balance, upright posture and weight shifting. Pt able to ambulate forward and side step ~6-7 feet x2 before needing rest break this date. She does continue to sit quickly with fatigue and requires w/c follow at all times. Education OT Patient Education: Correct positioning, Energy conservation, Modified ADL techniques, Progress toward Goal/Update tx plan, Purpose of tx/functional activities, Safety issues, Transfer techniques Teaching Recipient: Patient Teaching Methods: Discussion Response to Teaching: Verbalize Understanding, Return Demonstration OT Short Term Goals Short Term Goals Time Frame: Apr 20, 2021 Eatin Oral hygiene: 5 Toileting hygiene: 2 Shower/bathe self: 2 Upper body dressin Lower body dressin Putting on/taking off footwear: 2 OT Fdc Goals Smoking Pipe Mounter Goals Time Frame: May 04, 2021 Eating (QC): 6 Oral Hygiene (QC): 5 Toileting Hygiene (QC): 4 Shower/Bathe Self (QC): 4 Upper Body Dressing (QC): 5 Lower Body Dressing (QC): 4 On/Off Footwear (QC): 4 1=Demonstrate adherence to instructed precautions during ADL tasks. 2=Patient will verbalize/demonstrate understanding of assistive devices/modifications for ADL. 3=Patient will improve strength/tolerance for activity to enable patient to perform ADL's. OT Education/Plan Problem List/Assessment Assessment: Decreased Activ Tolerance, Decreased UE Strength, Impaired Funct Balance, Impaired I ADL's, Impaired Self-Care Skills Discharge Recommendations Plan/Recommendations: Continue POC Treatment Plan/Plan of Care Treatment,Training & Education: Yes Patient would benefit from OT for education, treatment and training to promote independence in ADL's, mobility, safety and/or upper extremity function for ADL's. Plan of Care: ADL Retraining, Caregiver Training, Functional Mobility, Group Exercise/Act as Ind, UE Funct Exercise/Act, UE Neuromus Re-Ed/Coord, W/C Management Training Treatment Duration: May 04, 2021 Frequency: At least 5 of 7 days/Wk (IRF) Estimated Hrs Per Day: 1.5 hours per day Agreement: Yes Rehab Potential: Fair Time/GCodes Start Time: 07:45 Stop Time: 09:15 Total Time Billed (hr/min): 90 Billed Treatment Time 1 visit ADL x3 (40 min) FA x3 (50 min) co treat with PT for 45 min Latoya Becker OT May 03, 2021 09:20
--- NOTE | 2021-05-03 10:24 | Physical Therapy Daily Note ---
PT Daily Note-Current Subjective Pt working with OT. Pt agreeable. Pt denies pain. Pt expresses she can't wait to get home and cuddle her boys. Mental Status Patient Orientation: Person, Place, Situation Transfers SCALE: Activities may be completed with or without assistive devices. 5-Glqabtsnax-olhrcgw completes the activity by him/herself with no assistance from a helper. 5-Set-up or Clean-up Assistance-helper sets up or cleans up; patient completes activity. [place] assists only prior to or following the activity. 4-Supervision or Touching Assistance-helper provides verbal cues and/or touching/steadying and/or contact guard assistance as patient completes activity. Assistance may be provided throughout the activity or intermittently. 3-Partial/Moderate Assistance-helper does LESS THAN HALF the effort. [place] lifts, holds or supports trunk or limbs, but provides less than half the effort. 2-Substantial/Maximal Assistance-helper does MORE THAN HALF the effort. [place] lifts or holds trunk or limbs and provides more than half the effort. 3-Bfwyvbalp-moynul does ALL the effort. Patient does none of the effort to complete the activity. Or, the assistance of 2 or more helpers is required for the patient to complete the activity. If activity was not attempted, code reason: 7-Patient Refused. 9-Not Applicable-not attempted and the patient did not perform the activity before the current illness, exacerbation or injury. 10-Not Attempted due to Environmental Limitations-(lack of equipment, weather restraints, etc.). 88-Not Attempted due to Medical Conditions or Safety Concerns. SPT with FWW and CGA w/c ->recliner. Weight Bearing Right Lower Extremity: Right Full Weight Bearing Left Lower Extremity: Left Full Weight Bearing Patient is cleared medically to bear weight through bilateral LEs, however due to prolonged illness and bed rest, patients LE's very weak and plantarflexion contractures bilaterally Gait Training Gait Assistive Device: Parallel Bars Pt amb in //bars with CGA 4 x 6ft forward and one trip side stepping R and L. Pt (L) ankle requires manual stabilization every step. Aircast donned (L) ankle to help stabilize ankle due to contracture and in ability place heel to floor. Close f/u of w/c while gait training in//bars. Wheelchair Training Type of Wheelchair: Manual Practiced w/c training 2 x 125ft with occasional vc's to be aware of (L) LE and toes to avoid dragging underneath w/c. Treatments Co-treat with OT for therapy session ([id number]) due to impaired activity tolerance, fatigue and requiring the skilled assist of 2 to progress mobility and ADLs. Passive (gentle) stretching to (L) hamstring, gastroc and soleus. Assessment Current Status: Good Progress Functional mobility progressing steadily. Pt unable to place (L) foot flat on floor due to contracture but DF improved over the course of the treatment. Pt lacking approx 25deg from neutral in standing. Pt darrell treatment well. Pt resting in recliner and in care of OT post therapy. PT Short Term Goals Short Term Goals Time Frame: Apr 20, 2021 Roll Left & Right: 4 Sit to lyin Lying to sitting on side of be: 4 Sit to stand: 3 Chair/wtt-pj-zjlgq transfer: 3 Toilet transfer: 3 Car transfer: 3 Walk 10 feet: 2 Walk 50 feet with two turns: 1 Walk 150 feet: 1 Does pt use a wc or scooter: Yes Wheel 50ft w/2 turns: 5 Wheel 150 feet: 5 Type: Manual PT Penitentiary Goals Penitentiary Goals PT Penitentiary Goals Time Frame: May 18, 2021 Roll Left & Right (QC): 6 Sit to Lying (QC): 6 Lying-Sitting on Side/Bed(QC): 6 Sit to Stand (QC): 4 Chair/Zpa-ih-Vvzxr Xfer(QC): 4 Toilet Transfer (QC): 4 Car Transfer (QC): 4 Does the Patient Walk: Yes Walk 10 feet (QC): 3 Walk 50ft with 2 Turns (QC): 3 Walk 150 ft (QC): 3 Walking 10ft on Uneven Surface: 3 1 Step (curb) (QC): 2 4 Steps (QC): 2 12 Steps (QC): 88 Picking up an Object (QC): 3 Does the Pt use WC or Scooter?: Yes Wheel 50 feet with 2 turns (QC: 6 Type: Manual Wheel 150 feet: 6 Type: Manual (6) PT Plan Treatment/Plan Treatment Plan: Continue Plan of Care Treatment Plan: Bed Mobility, Education, Functional Activity John Paul, Functional Strength, Group Therapy, Gait, Safety, Therapeutic Exercise, Transfers Treatment Duration: May 18, 2021 Frequency: At least 5 of 7 days/Wk (IRF) Estimated Hrs Per Day: 1.5 hours per day Patient and/or Family Agrees t: Yes Time/GCodes Time In: 815 Time Out: 900 Total Billed Treatment Time: 45 Total Billed Treatment 1, FA x 45' (Co-treat with OT 45min) VIJI RAY CPTA May 03, 2021 10:24
--- NOTE | 2021-05-03 12:30 | PM&R Progress Note ---
Subjective HPI/CC On Admission Date Seen by Provider: May 03, 2021 Time Seen by Provider: 12:00 Subjective/Events-last exam 05/03/2021: Pt having issues with tropomyosin level, its too high Checked meds and labs Not ready to go home yet Will work on that and she is doing very well 05/02/2021: Pt doing really well Changed dressing today Bowels moved yesterday Vomits frequently IV antibiotics of Tobromycin will be changed around and given once a day for an additional ten days 05/01/2021: Pt doing really well Transferring herself Wants to go home this week Continence maintained Ulcer is much improved 04/30/2021: Pt doing really well Wound vac is off Purewick is being used, less incontinence Checked meds and labs 04/29/21: Doing very well Motivated to get home by holiday Thornton cath out and using Purewick 04/28/21: Having a good day Thornton cath was set to be changed today so will attempt to leave out and work on bladder routine with Purewick No pain 04/27/2021: Patient doing well No major issues came for family training Working on bowel incontinence 04/26/2021: Patient doing well Getting up to go to the bathroom She wants Thornton catheter out We will work on incontinence due to wound proximity 04/25/21: Pt doing well Bowel regimen will be maintained Getting up to the commode she had a vasovagal syncopal episode She needs to sit up more and she will do that Very slow recovery 04/24/2021: Patient doing well Working on fecal incontinence Bowel routine is the priority today Check meds and labs 04/23/21: Pt doing well Wound vac will be changed today Fecal incontinence noted Bowel routine will be implemented 04/22/2021: Patient doing well Bowels move this morning with fecal incontinence Increase fluid intake is encouraged 04/21/21: Patient doing well Family visited with children Standing and pivoting very well 04/20/2021: Pt doing really well Wound vac was changed IV Zofran given every morning Changed her Scopolamine patch Children will visit tomorrow 04/19/2021: Pt stood and walked two steps today Wedge in left foot in shoe for foot drop has been helpful Zofran IV will be given every morning 04/18/2021: Pt doing well Catheter will be kept until decubitus ulcer heals BNO suppositories will be ordered for bladder spasms IV iron infusions completed Left foot drop is improving 04/17/2021: Pt doing much better Foot drop will be worked on today Getting up and around today Checked meds and labs Nausea improved 04/16/2021: Pt having some nausea Wound vac came off yesterday, replacing that today IV Zofran given for nausea Garett will restart the wound vac Consulting urology for bladder spasms 04/15/2021: Patient doing very well Visitors today No pain is reported Wound VAC in place Fecal incontinence continues 04/14/2021: Patient doing very well today Stood with a walker today at bedside No pain is reported Wound VAC in place 04/13/21: Patient doing well Scop patch resolving the nausea Pain controlled Wound vac changed No issues 04/12/2021: Scopolamine patch working well Patient doing well Wound VAC maintained Check meds and labs No pain Eating and drinking well Scopolamine patch working well 04/11/2021: Patient doing well Fecal incontinence again last night Participating in therapy Wound VAC changed 04/10/2021: Patient doing well No major concerns PICC line dysfunction will be assessed Foot drop will be addressed with AFO Incontinent of bowel last night 04/09/2021: Patient doing really well Labs stable Hemoglobin 8.6 Wound VAC working well Getting ready to go the parallel bars with physical therapy 04/08/2021: Patient doing very well Was up 4 times yesterday out of bed Loose stools only has occurred once May need to use Questran as needed Check meds labs 04/07/2021: Patient doing very well We will get up in chair for lunch Hemoglobin 8.6 Bowels are moving now so on verge of constipation will change Questran to as needed no pain is reported Wound VAC tolerated well Review of Systems General: Fatigue, Malaise Objective Exam Vital Signs Vital Signs Date Time Temp Pulse Resp B/P (MAP) Pulse Ox O2 Delivery O2 Flow Rate FiO2 05/03/21 21:15 Room Air 05/03/21 19:39 36.0 98 18 102/58 (73) 95 05/03/21 07:37 0.00 Capillary Refill : General Appearance: No Apparent Distress, WD/WN, Chronically ill, Other (pale, chronically ill) HEENT: PERRL/EOMI, Normal ENT Inspection, Pharynx Normal Neck: Full Range of Motion, Normal Inspection, Non Tender, Supple, Carotid Bruit Respiratory: Chest Non Tender, Lungs Clear, Normal Breath Sounds, No Accessory Muscle Use, No Respiratory Distress Cardiovascular: Regular Rate, Rhythm, No Edema, No Gallop, No JVD, No Murmur, Normal Peripheral Pulses Gastrointestinal: Normal Bowel Sounds, No Organomegaly, No Pulsatile Mass, Non Tender, Soft Back: Normal Inspection, No CVA Tenderness, No Vertebral Tenderness Extremity: Normal Capillary Refill, Normal Inspection, Normal Range of Motion, Non Tender, No Calf Tenderness, No Pedal Edema Neurologic/Psychiatric: Alert, Oriented x3, No Motor/Sensory Deficits, gum cook II- XII Norm as Tested, Depressed Affect, Motor Weakness (3/5 upper 1/5 lower) Skin: Normal Color, Warm/Dry, Other (coccyx decubitus ulcer with wound vac) Lymphatic: No Adenopathy Results/Procedures Lab Patient resulted labs reviewed. FIM Transfers Therapy Code Descriptions/Definitions Functional [place] Measure: 0=Not Assessed/NA 4=Minimal Assistance 1=Total Assistance 5=Supervision or Setup 2=Maximal Assistance 6=Modified [place] 3=Moderate Assistance 7=Complete IndependenceSCALE: Activities may be completed with or without assistive devices. 9-Ivhnhvwyuw-emvokaf completes the activity by him/herself with no assistance from a helper. 5-Set-up or Clean-up Assistance-helper sets up or cleans up; patient completes activity. [place] assists only prior to or following the activity. 4-Supervision or Touching Assistance-helper provides verbal cues and/or touching/steadying and/or contact guard assistance as patient completes activity. Assistance may be provided throughout the activity or intermittently. 3-Partial/Moderate Assistance-helper does LESS THAN HALF the effort. [place] lifts, holds or supports trunk or limbs, but provides less than half the effort. 2-Substantial/Maximal Assistance-helper does MORE THAN HALF the effort. [place] lifts or holds trunk or limbs and provides more than half the effort. 5-Yupgazvzd-onusxr does ALL the effort. Patient does none of the effort to complete the activity. Or, the assistance of 2 or more helpers is required for the patient to complete the activity. If activity was not attempted, code reason: 7-Patient Refused. 9-Not Applicable-not attempted and the patient did not perform the activity before the current illness, exacerbation or injury. 10-Not Attempted due to Environmental Limitations-(lack of equipment, weather restraints, etc.). 88-Not Attempted due to Medical Conditions or Safety Concerns. Roll Left to Right (QC): 6 Sit to Lying (QC): 6 Sit to Stand (QC): 5 Chair/Cqy-xp-Tdrxh Xfer(QC): 5 Car Transfer (QC): 1 Gait Training Does the Patient Walk?: Yes Distance: 5'x2 Walk 10 feet (QC): 88 Walk 50 ft with 2 Turns(QC): 88 Walk 150 ft (QC): 88 Walking 10ft/uneven surface-QC: 88 Gait Persons Needed: 1 Gait Assistive Device: Parallel Bars Wheelchair Training Does the Pt Use a Wheelchair?: Yes Distance: 150 Wheel 50 ft with 2 turns (QC): 6 Wheel 150 ft (QC): 6 Type of Wheelchair: Manual Stair Training #of Steps: 0 1 Step (curb) (QC): 88 4 Steps (QC): 88 12 Steps (QC): 88 Balance Picking up an Object (QC): 88 ADL-Treatment Eating (QC): 6 Oral Hygiene (QC): 6 Shower/Bathe Self (QC): 5 Upper Body Dressing (QC): 6 Lower Body Dressing (QC): 6 On/Off Footwear (QC): 5 Toileting Hygiene (QC): 4 Toilet Transfer (QC): 4 Assessment/Plan Assessment and Plan Assess & Plan/Chief Complaint Assessment: Post Covid with deconditioning s/p severe sepsis Diarrhea Sacral decubitus ulcer now with wound VAC DC with osteomyelitis completing antibiotics tobramycin for 10 days at discharge Hypokalemia Anemia previous transfusion Anxiety and depression Thornton catheter DC 04/28/21 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 Ongoing nausea improved Scopolamine patch Plan: IV abx Wound vac PT OT Depression meds OAC 04/07/2021: Wound VAC Out of bed 04/08/2021: Out of bed Wound VAC 04/09/2021: Supportive care Dramatic improvement already 04/10/2021: Supportive care Thornton catheter required although it is an infection risk 04/11/2021: Supportive care Wound VAC appreciated 04/12/2021: Scopolamine patch Wound VAC 04/13/21: Scop patch Monitor pain 04/14/2021: Supportive care Wound VAC 04/14/2021: Wound VAC Fecal incontinence management 04/15/2021: Wound VAC management Continue depression treatment 04/16/2021: Supportive care Change wound VAC 04/17/2021: Appreciate wound care Cefepime 04/18/2021: Continue aggressive PT Wound VAC 04/19/2021: Supportive care Hold potassium to see if that helps with nausea 04/20/2021: Supportive care Children will visit tomorrow 04/21/2021: Supportive care Family visiting has helped her morale 04/22/2021: Supportive care Wound VAC management 04/23/2021: Supportive care Wound VAC management 04/24/2021: Supportive care Fecal incontinence management 04/25/21: Fecal incontinence training 04/26/2021: Fecal incontinence management Thornton catheter may be able to be discontinued 04/27/2021: Supportive care Bowel incontinence management 04/28/21: Bowel incontinence improved Leave thornton out 04/29/21: Thornton out 04/30/2021: Supportive care Thornton Wound VAC off 05/01/2021: Supportive care Dramatic improvement 05/02/2021: Discharge home tomorrow with tobramycin IV antibiotic for an additional 10 days 05/03/2021: Discharge delayed due to tobramycin abnormal levels (1) Post covid-19 condition, unspecified Status: Chronic (2) Sacral decubitus ulcer, stage IV Status: Chronic (3) Severe sepsis Status: Acute (4) UTI (urinary tract infection) TERRA EDWARDS DO May 03, 2021 12:30
--- NOTE | 2021-05-03 15:03 | Physical Therapy Daily Note ---
PT Daily Note-Current Subjective Pt agreeable to PT and say she is ready for DC tomorrow. Pt requests BR privileges prior to treatment. Mental Status Patient Orientation: Person, Place, Situation Transfers SCALE: Activities may be completed with or without assistive devices. 3-Gopzdknohp-jrbcrwb completes the activity by him/herself with no assistance from a helper. 5-Set-up or Clean-up Assistance-helper sets up or cleans up; patient completes activity. [place] assists only prior to or following the activity. 4-Supervision or Touching Assistance-helper provides verbal cues and/or touching/steadying and/or contact guard assistance as patient completes ac tivity. Assistance may be provided throughout the activity or intermittently. 3-Partial/Moderate Assistance-helper does LESS THAN HALF the effort. [place] lifts, holds or supports trunk or limbs, but provides less than half the effort. 2-Substantial/Maximal Assistance-helper does MORE THAN HALF the effort. [place] lifts or holds trunk or limbs and provides more than half the effort. 5-Psirlnxnz-owepsf does ALL the effort. Patient does none of the effort to complete the activity. Or, the assistance of 2 or more helpers is required for the patient to complete the activity. If activity was not attempted, code reason: 7-Patient Refused. 9-Not Applicable-not attempted and the patient did not perform the activity before the current illness, exacerbation or injury. 10-Not Attempted due to Environmental Limitations-(lack of equipment, weather restraints, etc.). 88-Not Attempted due to Medical Conditions or Safety Concerns. Pt performs squat pivot transfers bed <->w/c, w/c<-> nu-step with CGA only. Pt may take a couple of times attempts to stand Weight Bearing Right Lower Extremity: Right Full Weight Bearing Left Lower Extremity: Left Full Weight Bearing Patient is cleared medically to bear weight through bilateral LEs, however due to prolonged illness and bed rest, patients LE's very weak and plantarflexion contractures bilaterally Gait Training Gait Assistive Device: Parallel Bars Pt amb in //bars 4 bouts x 6ft with f/u of w/c. Aircast was applied to (L) ankle to provide stability during transfers and ambulation. Wheelchair Training Does the Pt Use a Wheelchair?: Yes Type of Wheelchair: Manual Pt practiced w/c mobility 2 x 125ft Exercises NuStep Minutes: 5 NuStep Workload: 1 Treatments Passive stretching (L) hamstring and gastroc Assessment Current Status: Good Progress Pt progressing appropriately. (L) ankle contracture limits pts ability to safely progess to walker for ambulation at this time. Pt did appear to improve DF during weight bearing this afternoon. Pt back to bed with call light and all needs met. PT Short Term Goals Short Term Goals Time Frame: Apr 20, 2021 Roll Left & Right: 4 Sit to lyin Lying to sitting on side of be: 4 Sit to stand: 3 Chair/nax-rt-fkqpk transfer: 3 Toilet transfer: 3 Car transfer: 3 Walk 10 feet: 2 Walk 50 feet with two turns: 1 Walk 150 feet: 1 Does pt use a wc or scooter: Yes Wheel 50ft w/2 turns: 5 Wheel 150 feet: 5 Type: Manual PT Intermediate Goals Intermediate Goals PT Intermediate Goals Time Frame: May 18, 2021 Roll Left & Right (QC): 6 Sit to Lying (QC): 6 Lying-Sitting on Side/Bed(QC): 6 Sit to Stand (QC): 4 Chair/Npr-cx-Lyluh Xfer(QC): 4 Toilet Transfer (QC): 4 Car Transfer (QC): 4 Does the Patient Walk: Yes Walk 10 feet (QC): 3 Walk 50ft with 2 Turns (QC): 3 Walk 150 ft (QC): 3 Walking 10ft on Uneven Surface: 3 1 Step (curb) (QC): 2 4 Steps (QC): 2 12 Steps (QC): 88 Picking up an Object (QC): 3 Does the Pt use WC or Scooter?: Yes Wheel 50 feet with 2 turns (QC: 6 Type: Manual Wheel 150 feet: 6 Type: Manual (6) PT Plan Treatment/Plan Treatment Plan: Continue Plan of Care Treatment Plan: Bed Mobility, Education, Functional Activity John Paul, Functional Strength, Group Therapy, Gait, Safety, Therapeutic Exercise, Transfers Treatment Duration: May 18, 2021 Frequency: At least 5 of 7 days/Wk (IRF) Estimated Hrs Per Day: 1.5 hours per day Patient and/or Family Agrees t: Yes Time/GCodes Time In: 1330 Time Out: 1415 Total Billed Treatment Time: 45 Total Billed Treatment 1, ther ex x 15', gait x 15', FA x 15' VIJI RAY [facility] May 03, 2021 15:03
[2021-05-03 19:39] VITALS: BP 102/58
[2021-05-03] MEDS: MELATONIN 10 MG TABLET PO SCH (21:19)
[2021-05-03] MEDS: TOLTERODINE LA 4 MG (DETROL) CAP PO SCH (21:19)
[2021-05-04] MEDS: ONDANSETRON 4 MG/2 ML (SDV) Z0FRAN IVP PRN ×2 (00:20→11:30)
[2021-05-04] MEDS: CEFEPIME INJECTION 2,000 MG in NS (IVPB) 50 ML IV SCH ×3 (05:32→21:15)
[2021-05-04] MEDS: MULTIVIT W/MINERALS TAB (THERAGRAN M) PO SCH (05:32)
[2021-05-04] MEDS: VENlafaxine XR 75 MG (EFFEXOR XR) CAP PO SCH (05:32)
[2021-05-04] MEDS: CATHETER FLUSH 10 ML SYR IV SCH ×3 (05:33→21:15)
[2021-05-04 05:41] LABS: BASOPHILS # (AUTO) 0.1 10^3/uL (0.0-0.1); BASOPHILS % (AUTO) 1 % (0-10); EOSINOPHILS # (AUTO) 0.2 10^3/uL (0.0-0.3); EOSINOPHILS % (AUTO) 3 % (0-10); HEMATOCRIT 29 % (35-52); HEMOGLOBIN 9.1 g/dL (11.5-16.0); LYMPHOCYTES # (AUTO) 2.1 10^3/uL (1.0-4.0); LYMPHOCYTES % (AUTO) 34 % (12-44); MEAN CORPUSCULAR HEMOGLOBIN 31 pg (25-34); MEAN CORPUSCULAR HGB CONC 31 g/dL (32-36); MEAN CORPUSCULAR VOLUME 101 fL (80-99); MEAN PLATELET VOLUME 9.6 fL (9.0-12.2); MONOCYTES # (AUTO) 0.7 10^3/uL (0.0-1.0); MONOCYTES % (AUTO) 11 % (0-12); NEUTROPHILS # (AUTO) 3.2 10^3/uL (1.8-7.8); NEUTROPHILS % (AUTO) 51 % (42-75); PLATELET COUNT 259 10^3/uL (130-400); WHITE BLOOD COUNT 6.2 10^3/uL (4.3-11.0)
--- NOTE | 2021-05-04 05:48 | PM&R Progress Note ---
Subjective HPI/CC On Admission Date Seen by Provider: May 04, 2021 Time Seen by Provider: 10:00 Subjective/Events-last exam 05/04/2021: Pt doing well Disappointed that she can't go home due to unavailable home health and tobramycin dosing. Checked meds and labs Drainage from wound will likely require twice daily dressing changes 05/03/2021: Pt having issues with tobramycin level, its too high Checked meds and labs Not ready to go home yet Will work on that and she is doing very well 05/02/2021: Pt doing really well Changed dressing today Bowels moved yesterday Vomits frequently IV antibiotics of Tobromycin will be changed around and given once a day for an additional ten days 05/01/2021: Pt doing really well Transferring herself Wants to go home this week Continence maintained Ulcer is much improved 04/30/2021: Pt doing really well Wound vac is off Purewick is being used, less incontinence Checked meds and labs 04/29/21: Doing very well Motivated to get home by holiday Thornton cath out and using Purewick 04/28/21: Having a good day Thornton cath was set to be changed today so will attempt to leave out and work on bladder routine with Purewick No pain 04/27/2021: Patient doing well No major issues came for family training Working on bowel incontinence 04/26/2021: Patient doing well Getting up to go to the bathroom She wants Thornton catheter out We will work on incontinence due to wound proximity 04/25/21: Pt doing well Bowel regimen will be maintained Getting up to the commode she had a vasovagal syncopal episode She needs to sit up more and she will do that Very slow recovery 04/24/2021: Patient doing well Working on fecal incontinence Bowel routine is the priority today Check meds and labs 04/23/21: Pt doing well Wound vac will be changed today Fecal incontinence noted Bowel routine will be implemented 04/22/2021: Patient doing well Bowels move this morning with fecal incontinence Increase fluid intake is encouraged 04/21/21: Patient doing well Family visited with children Standing and pivoting very well 04/20/2021: Pt doing really well Wound vac was changed IV Zofran given every morning Changed her Scopolamine patch Children will visit tomorrow 04/19/2021: Pt stood and walked two steps today Wedge in left foot in shoe for foot drop has been helpful Zofran IV will be given every morning 04/18/2021: Pt doing well Catheter will be kept until decubitus ulcer heals BNO suppositories will be ordered for bladder spasms IV iron infusions completed Left foot drop is improving 04/17/2021: Pt doing much better Foot drop will be worked on today Getting up and around today Checked meds and labs Nausea improved 04/16/2021: Pt having some nausea Wound vac came off yesterday, replacing that today IV Zofran given for nausea Garett will restart the wound vac Consulting urology for bladder spasms 04/15/2021: Patient doing very well Visitors today No pain is reported Wound VAC in place Fecal incontinence continues 04/14/2021: Patient doing very well today Stood with a walker today at bedside No pain is reported Wound VAC in place 04/13/21: Patient doing well Scop patch resolving the nausea Pain controlled Wound vac changed No issues 04/12/2021: Scopolamine patch working well Patient doing well Wound VAC maintained Check meds and labs No pain Eating and drinking well Scopolamine patch working well 04/11/2021: Patient doing well Fecal incontinence again last night Participating in therapy Wound VAC changed 04/10/2021: Patient doing well No major concerns PICC line dysfunction will be assessed Foot drop will be addressed with AFO Incontinent of bowel last night 04/09/2021: Patient doing really well Labs stable Hemoglobin 8.6 Wound VAC working well Getting ready to go the parallel bars with physical therapy 04/08/2021: Patient doing very well Was up 4 times yesterday out of bed Loose stools only has occurred once May need to use Questran as needed Check meds labs 04/07/2021: Patient doing very well We will get up in chair for lunch Hemoglobin 8.6 Bowels are moving now so on verge of constipation will change Questran to as needed no pain is reported Wound VAC tolerated well Review of Systems General: Fatigue, Malaise Objective Exam Vital Signs Vital Signs Date Time Temp Pulse Resp B/P (MAP) Pulse Ox O2 Delivery O2 Flow Rate FiO2 05/04/21 20:17 36.4 78 16 92/55 (67) 96 Room Air 05/03/21 07:37 0.00 Capillary Refill : General Appearance: No Apparent Distress, WD/WN, Chronically ill, Other (pale, chronically ill) HEENT: PERRL/EOMI, Normal ENT Inspection, Pharynx Normal Neck: Full Range of Motion, Normal Inspection, Non Tender, Supple, Carotid Bruit Respiratory: Chest Non Tender, Lungs Clear, Normal Breath Sounds, No Accessory Muscle Use, No Respiratory Distress Cardiovascular: Regular Rate, Rhythm, No Edema, No Gallop, No JVD, No Murmur, Normal Peripheral Pulses Gastrointestinal: Normal Bowel Sounds, No Organomegaly, No Pulsatile Mass, Non Tender, Soft Back: Normal Inspection, No CVA Tenderness, No Vertebral Tenderness Extremity: Normal Capillary Refill, Normal Inspection, Normal Range of Motion, Non Tender, No Calf Tenderness, No Pedal Edema Neurologic/Psychiatric: Alert, Oriented x3, No Motor/Sensory Deficits, lace burn out tender II- XII Norm as Tested, Depressed Affect, Motor Weakness (3/5 upper 1/5 lower) Skin: Normal Color, Warm/Dry, Other (coccyx decubitus ulcer with wound vac) Lymphatic: No Adenopathy Results/Procedures Lab Patient resulted labs reviewed. FIM Transfers Therapy Code Descriptions/Definitions Functional [place] Measure: 0=Not Assessed/NA 4=Minimal Assistance 1=Total Assistance 5=Supervision or Setup 2=Maximal Assistance 6=Modified [place] 3=Moderate Assistance 7=Complete IndependenceSCALE: Activities may be completed with or without assistive devices. 8-Qyyuwjwady-haubhnv completes the activity by him/herself with no assistance from a helper. 5-Set-up or Clean-up Assistance-helper sets up or cleans up; patient completes activity. [place] assists only prior to or following the activity. 4-Supervision or Touching Assistance-helper provides verbal cues and/or touching/steadying and/or contact guard assistance as patient completes activity. Assistance may be provided throughout the activity or intermittently. 3-Partial/Moderate Assistance-helper does LESS THAN HALF the effort. [place] lifts, holds or supports trunk or limbs, but provides less than half the effort. 2-Substantial/Maximal Assistance-helper does MORE THAN HALF the effort. [place] lifts or holds trunk or limbs and provides more than half the effort. 6-Qwazsgexu-gcggpc does ALL the effort. Patient does none of the effort to complete the activity. Or, the assistance of 2 or more helpers is required for the patient to complete the activity. If activity was not attempted, code reason: 7-Patient Refused. 9-Not Applicable-not attempted and the patient did not perform the activity before the current illness, exacerbation or injury. 10-Not Attempted due to Environmental Limitations-(lack of equipment, weather restraints, etc.). 88-Not Attempted due to Medical Conditions or Safety Concerns. Roll Left to Right (QC): 6 Sit to Lying (QC): 6 Sit to Stand (QC): 5 Chair/Trg-jo-Tldyl Xfer(QC): 5 Car Transfer (QC): 1 Gait Training Does the Patient Walk?: Yes Distance: 5'x2 Walk 10 feet (QC): 88 Walk 50 ft with 2 Turns(QC): 88 Walk 150 ft (QC): 88 Walking 10ft/uneven surface-QC: 88 Gait Persons Needed: 1 Gait Assistive Device: Parallel Bars Wheelchair Training Does the Pt Use a Wheelchair?: Yes Distance: 150 Wheel 50 ft with 2 turns (QC): 6 Wheel 150 ft (QC): 6 Type of Wheelchair: Manual Stair Training #of Steps: 0 1 Step (curb) (QC): 88 4 Steps (QC): 88 12 Steps (QC): 88 Balance Picking up an Object (QC): 88 ADL-Treatment Eating (QC): 6 Oral Hygiene (QC): 6 Shower/Bathe Self (QC): 5 Upper Body Dressing (QC): 6 Lower Body Dressing (QC): 6 On/Off Footwear (QC): 5 Toileting Hygiene (QC): 4 Toilet Transfer (QC): 4 Assessment/Plan Assessment and Plan Assess & Plan/Chief Complaint Assessment: Post Covid with deconditioning s/p severe sepsis Diarrhea Sacral decubitus ulcer now with wound VAC DC with osteomyelitis completing antibiotics tobramycin for 10 days at discharge Hypokalemia Anemia previous transfusion Anxiety and depression Thornton catheter DC 04/28/21 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 Ongoing nausea improved Scopolamine patch Plan: IV abx Wound vac PT OT Depression meds OAC 04/07/2021: Wound VAC Out of bed 04/08/2021: Out of bed Wound VAC 04/09/2021: Supportive care Dramatic improvement already 04/10/2021: Supportive care Thornton catheter required although it is an infection risk 04/11/2021: Supportive care Wound VAC appreciated 04/12/2021: Scopolamine patch Wound VAC 04/13/21: Scop patch Monitor pain 04/14/2021: Supportive care Wound VAC 04/14/2021: Wound VAC Fecal incontinence management 04/15/2021: Wound VAC management Continue depression treatment 04/16/2021: Supportive care Change wound VAC 04/17/2021: Appreciate wound care Cefepime 04/18/2021: Continue aggressive PT Wound VAC 04/19/2021: Supportive care Hold potassium to see if that helps with nausea 04/20/2021: Supportive care Children will visit tomorrow 04/21/2021: Supportive care Family visiting has helped her morale 04/22/2021: Supportive care Wound VAC management 04/23/2021: Supportive care Wound VAC management 04/24/2021: Supportive care Fecal incontinence management 04/25/21: Fecal incontinence training 04/26/2021: Fecal incontinence management Thornton catheter may be able to be discontinued 04/27/2021: Supportive care Bowel incontinence management 04/28/21: Bowel incontinence improved Leave thornton out 04/29/21: Thornton out 04/30/2021: Supportive care Thornton Wound VAC off 05/01/2021: Supportive care Dramatic improvement 05/02/2021: Discharge home tomorrow with tobramycin IV antibiotic for an additional 10 days 05/03/2021: Discharge delayed due to tobramycin abnormal levels 05/04/2021: Tobramycin management (1) Post covid-19 condition, unspecified Status: Chronic (2) Sacral decubitus ulcer, stage IV Status: Chronic (3) Severe sepsis Status: Acute (4) UTI (urinary tract infection) TERRA EDWARDS DO May 04, 2021 05:48
[2021-05-04 06:04] LABS: ALBUMIN 2.2 GM/DL (3.2-4.5); POTASSIUM 3.3 MMOL/L (3.6-5.0)
[2021-05-04 06:06] LABS: CALCIUM 8.2 MG/DL (8.5-10.1)
[2021-05-04 06:07] LABS: TOTAL PROTEIN 4.2 GM/DL (6.4-8.2)
[2021-05-04 06:09] LABS: BILIRUBIN,TOTAL 0.3 MG/DL (0.1-1.0)
[2021-05-04 06:11] LABS: CREATININE SERUM 0.7 MG/DL (0.60-1.30); TOBRAMYCIN, RANDOM 2.6 UG/ML (4.0-8.0)
[2021-05-04 07:27] VITALS: BP 87/47
[2021-05-04] MEDS: polyethylene glycoL POWDER 17 GM (MIRALAX) PACK PO SCH ×2 (09:00→19:13)
[2021-05-04] MEDS: ATENOLOL 25 MG (TENORMIN) TAB PO SCH ×2 (09:00→21:36)
[2021-05-04] MEDS: ONDANSETRON 4 MG (ZOFRAN) ORAL DISSOLVE TAB PO PRN (09:08)
--- NOTE | 2021-05-04 09:47 | Physical Therapy Daily Note ---
PT Daily Note-Current Subjective Pt. in w/c, breakfast in front of her, nurse present, pt. crying, DC plans delayed as pts ABX therapy needs tweeked . Nursing and CLOTHING MAN encourage pt. that it will come together soon Pain Location: No Pain Reported Mental Status Patient Orientation: Normal For Age Transfers SCALE: Activities may be completed with or without assistive devices. 7-Ozcgzxrivh-elhaqug completes the activity by him/herself with no assistance from a helper. 5-Set-up or Clean-up Assistance-helper sets up or cleans up; patient completes activity. [place] assists only prior to or following the activity. 4-Supervision or Touching Assistance-helper provides verbal cues and/or touching/steadying and/or contact guard assistance as patient completes activity. Assistance may be provided throughout the activity or intermittently. 3-Partial/Moderate Assistance-helper does LESS THAN HALF the effort. [place] lifts, holds or supports trunk or limbs, but provides less than half the effort. 2-Substantial/Maximal Assistance-helper does MORE THAN HALF the effort. [place] lifts or holds trunk or limbs and provides more than half the effort. 8-Tafoqhxva-hdmhzx does ALL the effort. Patient does none of the effort to complete the activity. Or, the assistance of 2 or more helpers is required for the patient to complete the activity. If activity was not attempted, code reason: 7-Patient Refused. 9-Not Applicable-not attempted and the patient did not perform the activity before the current illness, exacerbation or injury. 10-Not Attempted due to Environmental Limitations-(lack of equipment, weather restraints, etc.). 88-Not Attempted due to Medical Conditions or Safety Concerns. Roll Left & Right (QC): 6 Sit to Lying (QC): 6 Lying to Sitting/Side of Bed(Q: 6 Sit to Stand (QC): 5 Chair/Fhf-dj-Rmxeo Xfer(QC): 5 w/c to bed TRF with CLOTHING MAN SBA only, all w/ c positioning indep as well Weight Bearing Right Lower Extremity: Right Full Weight Bearing Left Lower Extremity: Left Full Weight Bearing Patient is cleared medically to bear weight through bilateral LEs, however due to prolonged illness and bed rest, patients LE's very weak and plantarflexion contractures bilaterally Wheelchair Training Does the Pt Use a Wheelchair?: Yes Type of Wheelchair: Manual indep in room in tight spot Exercises Supine Ex: Ankle pumps, Quad Set, Rolling, Glut sets, Heel Slides, Scooting Supine Reps: 20 HC stretch 20 sec x 5 bilat, HS stretch 3 x 20 sec Treatments Rx halted as wound care enters as pt. is also having some possible wound exacerbation of drainage needing assessed Assessment Current Status: Good Progress depressed as she was hoping to DC today. This CLOTHING MAN requested approval of visit for children PT Short Term Goals Short Term Goals Time Frame: Apr 20, 2021 Roll Left & Right: 4 Sit to lyin Lying to sitting on side of be: 4 Sit to stand: 3 Chair/ktm-zx-udaah transfer: 3 Toilet transfer: 3 Car transfer: 3 Walk 10 feet: 2 Walk 50 feet with two turns: 1 Walk 150 feet: 1 Does pt use a wc or scooter: Yes Wheel 50ft w/2 turns: 5 Wheel 150 feet: 5 Type: Manual PT Railroad Car Inspector Goals Usp Goals PT Railroad Car Inspector Goals Time Frame: May 18, 2021 Roll Left & Right (QC): 6 Sit to Lying (QC): 6 Lying-Sitting on Side/Bed(QC): 6 Sit to Stand (QC): 4 Chair/Kga-sl-Otxmp Xfer(QC): 4 Toilet Transfer (QC): 4 Car Transfer (QC): 4 Does the Patient Walk: Yes Walk 10 feet (QC): 3 Walk 50ft with 2 Turns (QC): 3 Walk 150 ft (QC): 3 Walking 10ft on Uneven Surface: 3 1 Step (curb) (QC): 2 4 Steps (QC): 2 12 Steps (QC): 88 Picking up an Object (QC): 3 Does the Pt use WC or Scooter?: Yes Wheel 50 feet with 2 turns (QC: 6 Type: Manual Wheel 150 feet: 6 Type: Manual (6) PT Plan Treatment/Plan Treatment Plan: Continue Plan of Care Treatment Plan: Bed Mobility, Education, Functional Activity [place], Functional Strength, Group Therapy, Gait, Safety, Therapeutic Exercise, Transfers Treatment Duration: May 18, 2021 Frequency: At least 5 of 7 days/Wk (IRF) Estimated Hrs Per Day: 1.5 hours per day Patient and/or Family Agrees t: Yes Safety Risks/Education Patient Education: Transfer Techniques, Correct Positioning Time/GCodes Time In: 900 Time Out: 935 Total Billed Treatment Time: 35 Total Billed Treatment 1,FA20m,EX15m KRISSY SHEPHERD CLOTHING MAN May 04, 2021 09:47
[2021-05-04] MEDS: OXYBUTYNIN (DITROPAN) 5 MG TAB PO SCH ×3 (09:59→21:14)
[2021-05-04] MEDS: APIXABAN 5 MG (ELIQUIS) TABLET PO SCH ×2 (09:59→21:14)
[2021-05-04] MEDS: HYDROcodone/APAP 7.5 MG/325 MG (LORTAB, LORCET PLUS) TABLET PO SCH ×4 (09:59→21:14)
[2021-05-04] MEDS: LACTOBACILLUS ACIDOPHILUS (PROBIOTIC) CAPSULE PO SCH ×3 (09:59→18:20)
[2021-05-04] MEDS: MESALAMINE 250 MG (PENTASA) CAP PO SCH ×3 (09:59→21:13)
[2021-05-04] MEDS: SERTRALINE 50 MG (ZOLOFT) TABLET PO SCH (10:00)
[2021-05-04] MEDS: FERROUS SULF 325 MG (IRON) TAB PO SCH (10:00)
--- NOTE | 2021-05-04 11:58 | Occupational Ther Daily Note ---
OT Current Status-Daily Note Subjective Pt reports feeling nauseous but still agreeable to treatment. Tearful throughout session secondary to being upset about not being able to d/c today. Emotional support provided. Appearance Returned to supine in bed, all needs within reach. Mental Status/Objective Patient Orientation: Person, Place, Time, Situation Attachments: IV ADL-Treatment Therapy Code Descriptions/Definitions Functional [place] Measure: 0=Not Assessed/NA 4=Minimal Assistance 1=Total Assistance 5=Supervision or Setup 2=Maximal Assistance 6=Modified [place] 3=Moderate Assistance 7=Complete IndependenceSCALE: Activities may be completed with or without assistive devices. 6-Dyqmbkytti-qgpxzuo completes the activity by him/herself with no assistance from a helper. 5-Set-up or Clean-up Assistance-helper sets up or cleans up; patient completes activity. [place] assists only prior to or following the activity. 4-Supervision or Touching Assistance-helper provides verbal cues and/or touching/steadying and/or contact guard assistance as patient completes activity. Assistance may be provided throughout the activity or intermittently. 3-Partial/Moderate Assistance-helper does LESS THAN HALF the effort. [place] lifts, holds or supports trunk or limbs, but provides less than half the effort. 2-Substantial/Maximal Assistance-helper does MORE THAN HALF the effort. [place] lifts or holds trunk or limbs and provides more than half the effort. 3-Rvkbpkngl-tnqtlp does ALL the effort. Patient does none of the effort to complete the activity. Or, the assistance of 2 or more helpers is required for the patient to complete the activity. If activity was not attempted, code reason: 7-Patient Refused. 9-Not Applicable-not attempted and the patient did not perform the activity before the current illness, exacerbation or injury. 10-Not Attempted due to Environmental Limitations-(lack of equipment, weather restraints, etc.). 88-Not Attempted due to Medical Conditions or Safety Concerns. Eating (QC): 6 Oral Hygiene (QC): 6 Upper Body Dressing (QC): 6 Lower Body Dressing (QC): 6 On/Off Footwear: 5 Toileting Hygiene (QC): 4 Toilet Transfer (QC): 4 Clothes donned at bed level. Extra time to thread LE's with trial paralegal, but no physical assist required. Clothing management performed supine and while pt bridged at hips. Once in w/c, pt able to complete grooming tasks sitting at the sink without assist. Steadying assist required as she stood to manage clothing over hips pre/post toileting task. Other Treatment Pt propelled around room in w/c to organize/pack belongings in prep for upcoming discharge. Post demonstrating difficulty with reaching to floor, cue given to utilize trial paralegal. Following cue, no physical assistance required. Pt fatigues easily today as well as c/o nausea causing pt to take frequent breaks. Min cues for preferred set up of w/c around tight spaces/obstacles. AFter increase in nausea, pt requests to return to bed. Min a required this date with lifting secondary to weakness/fatigue. Education OT Patient Education: Correct positioning, Disease process, Modified ADL techniques, Progress toward Goal/Update tx plan, Purpose of tx/functional activities, Safety issues, Transfer techniques, Use of adapted equipment Teaching Recipient: Patient Teaching Methods: Demonstration, Discussion Response to Teaching: Verbalize Understanding, Return Demonstration OT Short Term Goals Short Term Goals Time Frame: Apr 20, 2021 Eatin Oral hygiene: 5 Toileting hygiene: 2 Shower/bathe self: 2 Upper body dressin Lower body dressin Putting on/taking off footwear: 2 OT Custodial Goals Custodial Goals Time Frame: May 04, 2021 Eating (QC): 6 Oral Hygiene (QC): 5 Toileting Hygiene (QC): 4 Shower/Bathe Self (QC): 4 Upper Body Dressing (QC): 5 Lower Body Dressing (QC): 4 On/Off Footwear (QC): 4 1=Demonstrate adherence to instructed precautions during ADL tasks. 2=Patient will verbalize/demonstrate understanding of assistive devices/modifications for ADL. 3=Patient will improve strength/tolerance for activity to enable patient to perform ADL's. OT Education/Plan Problem List/Assessment Assessment: Decreased Activ Tolerance, Decreased UE Strength, Impaired Funct Balance, Impaired I ADL's, Impaired Self-Care Skills Discharge Recommendations Plan/Recommendations: Continue POC Treatment Plan/Plan of Care Treatment,Training & Education: Yes Patient would benefit from OT for education, treatment and training to promote independence in ADL's, mobility, safety and/or upper extremity function for ADL's. Plan of Care: ADL Retraining, Caregiver Training, Functional Mobility, Group Exercise/Act as Ind, UE Funct Exercise/Act, UE Neuromus Re-Ed/Coord, W/C Manag ement Training Treatment Duration: May 04, 2021 Frequency: At least 5 of 7 days/Wk (IRF) Estimated Hrs Per Day: 1.5 hours per day Agreement: Yes Rehab Potential: Fair Time/GCodes Start Time: 10:30 Stop Time: 11:40 Total Time Billed (hr/min): 70 Billed Treatment Time 1 visit ADL x3 (40 min) FA x2 (30 min) Latoya Becker OT May 04, 2021 11:58
--- NOTE | 2021-05-04 13:26 | Occupational Ther Daily Note ---
OT Current Status-Daily Note Subjective Pt alert, laying in bed when OT entered. Pt stated she is feeling better this afternoon and was able to eat soup for lunch. Pt agreed to therapy. No c/o pain reported. Mental Status/Objective Patient Orientation: Person, Place, Time, Situation ADL-Treatment Therapy Code Descriptions/Definitions Functional [place] Measure: 0=Not Assessed/NA 4=Minimal Assistance 1=Total Assistance 5=Supervision or Setup 2=Maximal Assistance 6=Modified [place] 3=Moderate Assistance 7=Complete IndependenceSCALE: Activities may be completed with or without assistive devices. 0-Fyyeclkkbv-drioxgu completes the activity by him/herself with no assistance from a helper. 5-Set-up or Clean-up Assistance-helper sets up or cleans up; patient completes activity. [place] assists only prior to or following the activity. 4-Supervision or Touching Assistance-helper provides verbal cues and/or touching/steadying and/or contact guard assistance as patient completes activity. Assistance may be provided throughout the activity or intermittently. 3-Partial/Moderate Assistance-helper does LESS THAN HALF the effort. [place] lifts, holds or supports trunk or limbs, but provides less than half the effort. 2-Substantial/Maximal Assistance-helper does MORE THAN HALF the effort. [place] lifts or holds trunk or limbs and provides more than half the effort. 0-Dfjcvfvck-tvcvmi does ALL the effort. Patient does none of the effort to complete the activity. Or, the assistance of 2 or more helpers is required for the patient to complete the activity. If activity was not attempted, code reason: 7-Patient Refused. 9-Not Applicable-not attempted and the patient did not perform the activity before the current illness, exacerbation or injury. 10-Not Attempted due to Environmental Limitations-(lack of equipment, weather restraints, etc.). 88-Not Attempted due to Medical Conditions or Safety Concerns. Other Treatment Skilled instruction required of theraband exercises for correct completion. Pt completed x2 sets of 10 reps of BUE yellow theraband exercises in all planes to increase BUE strength for improved independce with ADLs. Pt tolerated exercises and required physical and verbal demonstration. Pt required resting break in between set due to low activity tolerance. After session, pt sitting at EOB. Call light in reach and all needs met. Education OT Patient Education: Energy conservation, Exercise program, Home exercise program Teaching Recipient: Patient Teaching Methods: Demonstration, Discussion Response to Teaching: Verbalize Understanding, Return Demonstration OT Short Term Goals Short Term Goals Time Frame: Apr 20, 2021 Eatin Oral hygiene: 5 Toileting hygiene: 2 Shower/bathe self: 2 Upper body dressin Lower body dressin Putting on/taking off footwear: 2 OT Multi Disciplined Language Analyst Goals Multi Disciplined Language Analyst Goals Time Frame: May 04, 2021 Eating (QC): 6 Oral Hygiene (QC): 5 Toileting Hygiene (QC): 4 Shower/Bathe Self (QC): 4 Upper Body Dressing (QC): 5 Lower Body Dressing (QC): 4 On/Off Footwear (QC): 4 1=Demonstrate adherence to instructed precautions during ADL tasks. 2=Patient will verbalize/demonstrate understanding of assistive devices/modifications for ADL. 3=Patient will improve strength/tolerance for activity to enable patient to perform ADL's. OT Education/Plan Problem List/Assessment Assessment: Decreased Activ Tolerance, Decreased UE Strength, Impaired I ADL's, Impaired Self-Care Skills Discharge Recommendations Plan/Recommendations: Continue POC Treatment Plan/Plan of Care Patient would benefit from OT for education, treatment and training to promote independence in ADL's, mobility, safety and/or upper extremity function for ADL's. Plan of Care: ADL Retraining, Caregiver Training, Functional Mobility, Group Exercise/Act as Ind, UE Funct Exercise/Act, UE Neuromus Re-Ed/Coord, W/C Management Training Treatment Duration: May 04, 2021 Frequency: At least 5 of 7 days/Wk (IRF) Estimated Hrs Per Day: 1.5 hours per day Agreement: Yes Rehab Potential: Fair Time/GCodes Start Time: 13:00 Stop Time: 13:20 Total Time Billed (hr/min): 20 Billed Treatment Time 1 visit- EX 1 ALBINODESHAUN WORRELL May 04, 2021 13:26
[2021-05-04] MEDS ORDERED: NS IV SCH (14:00)
[2021-05-04] MEDS ORDERED: TOBRAMYCIN IV SCH (14:00)
--- NOTE | 2021-05-04 14:15 | Physical Therapy Daily Note ---
PT Daily Note-Current Subjective Pt. happier this afternoon and states she is going home on Friday, no c/o discomfort. Pain Location: No Pain Reported Mental Status Patient Orientation: Normal For Age Attachments: IV Transfers SCALE: Activities may be completed with or without assistive devices. 5-Jarsaqiglf-tguutkm completes the activity by him/herself with no assistance from a helper. 5-Set-up or Clean-up Assistance-helper sets up or cleans up; patient completes activity. [place] assists only prior to or following the activity. 4-Supervision or Touching Assistance-helper provides verbal cues and/or touching/steadying and/or contact guard assistance as patient completes activity. Assistance may be provided throughout the activity or intermittently. 3-Partial/Moderate Assistance-helper does LESS THAN HALF the effort. [place] lift s, holds or supports trunk or limbs, but provides less than half the effort. 2-Substantial/Maximal Assistance-helper does MORE THAN HALF the effort. [place] lifts or holds trunk or limbs and provides more than half the effort. 7-Kwktqyplj-fttycx does ALL the effort. Patient does none of the effort to complete the activity. Or, the assistance of 2 or more helpers is required for the patient to complete the activity. If activity was not attempted, code reason: 7-Patient Refused. 9-Not Applicable-not attempted and the patient did not perform the activity before the current illness, exacerbation or injury. 10-Not Attempted due to Environmental Limitations-(lack of equipment, weather restraints, etc.). 88-Not Attempted due to Medical Conditions or Safety Concerns. Roll Left & Right (QC): 6 Sit to Lying (QC): 6 Lying to Sitting/Side of Bed(Q: 6 Sit to Stand (QC): 6 Chair/Rra-jc-Kumba Xfer(QC): 5 Weight Bearing Right Lower Extremity: Right Full Weight Bearing Left Lower Extremity: Left Full Weight Bearing Patient is cleared medically to bear weight through bilateral LEs, however due to prolonged illness and bed rest, patients LE's very weak and plantarflexion contractures bilaterally Gait Training Does the Patient Walk?: Yes Gait Assistive Device: Parallel Bars 6ftx3 CGA pt. turning at end of bars and then side stepping to right , left ankle begins to roll after fatigue. pt rests Wheelchair Training Does the Pt Use a Wheelchair?: Yes Wheel 50 ft with 2 turns (QC): 6 Type of Wheelchair: Manual Exercises heels cord and hamstring stretches 4 x 20 sec NuStep Minutes: 8 NuStep Workload: 2 Treatments in bed after Rx, bonilla at hand Assessment Current Status: Good Progress PT Short Term Goals Short Term Goals Time Frame: Apr 20, 2021 Roll Left & Right: 4 Sit to lyin Lying to sitting on side of be: 4 Sit to stand: 3 Chair/msk-hu-rwruq transfer: 3 Toilet transfer: 3 Car transfer: 3 Walk 10 feet: 2 Walk 50 feet with two turns: 1 Walk 150 feet: 1 Does pt use a wc or scooter: Yes Wheel 50ft w/2 turns: 5 Wheel 150 feet: 5 Type: Manual PT Traffic Expert Goals Skilled Nursing Goals PT Skilled Nursing Goals Time Frame: May 18, 2021 Roll Left & Right (QC): 6 Sit to Lying (QC): 6 Lying-Sitting on Side/Bed(QC): 6 Sit to Stand (QC): 4 Chair/Yev-ou-Asmpk Xfer(QC): 4 Toilet Transfer (QC): 4 Car Transfer (QC): 4 Does the Patient Walk: Yes Walk 10 feet (QC): 3 Walk 50ft with 2 Turns (QC): 3 Walk 150 ft (QC): 3 Walking 10ft on Uneven Surface: 3 1 Step (curb) (QC): 2 4 Steps (QC): 2 12 Steps (QC): 88 Picking up an Object (QC): 3 Does the Pt use WC or Scooter?: Yes Wheel 50 feet with 2 turns (QC: 6 Type: Manual Wheel 150 feet: 6 Type: Manual (6) PT Plan Treatment/Plan Treatment Plan: Continue Plan of Care Treatment Plan: Bed Mobility, Education, Functional Activity John Paul, Functional Strength, Group Therapy, Gait, Safety, Therapeutic Exercise, Transfers Treatment Duration: May 18, 2021 Frequency: At least 5 of 7 days/Wk (IRF) Estimated Hrs Per Day: 1.5 hours per day Patient and/or Family Agrees t: Yes Safety Risks/Education Patient Education: Gait Training, Transfer Techniques, Correct Positioning, W/C Management, Disease Process, Safety Issues Teaching Recipient: Patient Teaching Methods: Demonstration, Discussion Response to Teaching: Verbalize Understanding, Return Demonstration, Reinforcement Needed Time/GCodes Time In: 1320 Time Out: 1415 Total Billed Treatment Time: 55 Total Billed Treatment 1,GT15m,FA15m,EX15m,WC10m KRISSY SHEPHERD MANAGER QUALITY May 04, 2021 14:15
[2021-05-04] MEDS ORDERED: [UNRECOGNIZED DRUG - REMARK] XX NR (15:00)
[2021-05-04 20:17] VITALS: BP 92/55
[2021-05-04] MEDS: MELATONIN 10 MG TABLET PO SCH (21:13)
[2021-05-04] MEDS: TOLTERODINE LA 4 MG (DETROL) CAP PO SCH (21:14)
[2021-05-05] MEDS ORDERED: [UNRECOGNIZED DRUG - REMARK] XX NR (01:00)
[2021-05-05] MEDS: CEFEPIME INJECTION 2,000 MG in NS (IVPB) 50 ML IV SCH ×3 (06:06→22:09)
[2021-05-05] MEDS: CATHETER FLUSH 10 ML SYR IV SCH ×3 (06:06→22:17)
[2021-05-05] MEDS: MULTIVIT W/MINERALS TAB (THERAGRAN M) PO SCH (06:06)
[2021-05-05] MEDS: VENlafaxine XR 75 MG (EFFEXOR XR) CAP PO SCH (06:06)
--- NOTE | 2021-05-05 08:19 | PM&R Progress Note ---
Subjective HPI/CC On Admission Date Seen by Provider: May 05, 2021 Time Seen by Provider: 12:30 Subjective/Events-last exam 05/05/2021: Patient doing well Change dressing twice daily Bowels are moving Tolerating antibiotics 05/04/2021: Pt doing well Disappointed that she can't go home due to unavailable home health and tobramycin dosing. Checked meds and labs Drainage from wound will likely require twice daily dressing changes 05/03/2021: Pt having issues with tobramycin level, its too high Checked meds and labs Not ready to go home yet Will work on that and she is doing very well 05/02/2021: Pt doing really well Changed dressing today Bowels moved yesterday Vomits frequently IV antibiotics of Tobromycin will be changed around and given once a day for an additional ten days 05/01/2021: Pt doing really well Transferring herself Wants to go home this week Continence maintained Ulcer is much improved 04/30/2021: Pt doing really well Wound vac is off Purewick is being used, less incontinence Checked meds and labs 04/29/21: Doing very well Motivated to get home by holiday Thornton cath out and using Purewick 04/28/21: Having a good day Thornton cath was set to be changed today so will attempt to leave out and work on bladder routine with Purewick No pain 04/27/2021: Patient doing well No major issues came for family training Working on bowel incontinence 04/26/2021: Patient doing well Getting up to go to the bathroom She wants Thornton catheter out We will work on incontinence due to wound proximity 04/25/21: Pt doing well Bowel regimen will be maintained Getting up to the commode she had a vasovagal syncopal episode She needs to sit up more and she will do that Very slow recovery 04/24/2021: Patient doing well Working on fecal incontinence Bowel routine is the priority today Check meds and labs 04/23/21: Pt doing well Wound vac will be changed today Fecal incontinence noted Bowel routine will be implemented 04/22/2021: Patient doing well Bowels move this morning with fecal incontinence Increase fluid intake is encouraged 04/21/21: Patient doing well Family visited with children Standing and pivoting very well 04/20/2021: Pt doing really well Wound vac was changed IV Zofran given every morning Changed her Scopolamine patch Children will visit tomorrow 04/19/2021: Pt stood and walked two steps today Wedge in left foot in shoe for foot drop has been helpful Zofran IV will be given every morning 04/18/2021: Pt doing well Catheter will be kept until decubitus ulcer heals BNO suppositories will be ordered for bladder spasms IV iron infusions completed Left foot drop is improving 04/17/2021: Pt doing much better Foot drop will be worked on today Getting up and around today Checked meds and labs Nausea improved 04/16/2021: Pt having some nausea Wound vac came off yesterday, replacing that today IV Zofran given for nausea Garett will restart the wound vac Consulting urology for bladder spasms 04/15/2021: Patient doing very well Visitors today No pain is reported Wound VAC in place Fecal incontinence continues 04/14/2021: Patient doing very well today Stood with a walker today at bedside No pain is reported Wound VAC in place 04/13/21: Patient doing well Scop patch resolving the nausea Pain controlled Wound vac changed No issues 04/12/2021: Scopolamine patch working well Patient doing well Wound VAC maintained Check meds and labs No pain Eating and drinking well Scopolamine patch working well 04/11/2021: Patient doing well Fecal incontinence again last night Participating in therapy Wound VAC changed 04/10/2021: Patient doing well No major concerns PICC line dysfunction will be assessed Foot drop will be addressed with AFO Incontinent of bowel last night 04/09/2021: Patient doing really well Labs stable Hemoglobin 8.6 Wound VAC working well Getting ready to go the parallel bars with physical therapy 04/08/2021: Patient doing very well Was up 4 times yesterday out of bed Loose stools only has occurred once May need to use Questran as needed Check meds labs 04/07/2021: Patient doing very well We will get up in chair for lunch Hemoglobin 8.6 Bowels are moving now so on verge of constipation will change Questran to as needed no pain is reported Wound VAC tolerated well Review of Systems General: Fatigue, Malaise Objective Exam Vital Signs Vital Signs Date Time Temp Pulse Resp B/P (MAP) Pulse Ox O2 Delivery O2 Flow Rate FiO2 05/06/21 03:55 Room Air 05/05/21 09:54 36.7 98 18 92/56 (68) 96 05/03/21 07:37 0.00 Capillary Refill : General Appearance: No Apparent Distress, WD/WN, Chronically ill, Other (pale, chronically ill) HEENT: PERRL/EOMI, Normal ENT Inspection, Pharynx Normal Neck: Full Range of Motion, Normal Inspection, Non Tender, Supple, Carotid Bruit Respiratory: Chest Non Tender, Lungs Clear, Normal Breath Sounds, No Accessory Muscle Use, No Respiratory Distress Cardiovascular: Regular Rate, Rhythm, No Edema, No Gallop, No JVD, No Murmur, Normal Peripheral Pulses Gastrointestinal: Normal Bowel Sounds, No Organomegaly, No Pulsatile Mass, Non Tender, Soft Back: Normal Inspection, No CVA Tenderness, No Vertebral Tenderness Extremity: Normal Capillary Refill, Normal Inspection, Normal Range of Motion, Non Tender, No Calf Tenderness, No Pedal Edema Neurologic/Psychiatric: Alert, Oriented x3, No Motor/Sensory Deficits, lean manufacturing specialist II- XII Norm as Tested, Depressed Affect, Motor Weakness (3/5 upper 1/5 lower) Skin: Normal Color, Warm/Dry, Other (coccyx decubitus ulcer with wound vac) Lymphatic: No Adenopathy Results/Procedures Lab Patient resulted labs reviewed. FIM Transfers Therapy Code Descriptions/Definitions Functional [place] Measure: 0=Not Assessed/NA 4=Minimal Assistance 1=Total Assistance 5=Supervision or Setup 2=Maximal Assistance 6=Modified [place] 3=Moderate Assistance 7=Complete IndependenceSCALE: Activities may be completed with or without assistive devices. 6-Urrikvwmqo-iubvpya completes the activity by him/herself with no assistance from a helper. 5-Set-up or Clean-up Assistance-helper sets up or cleans up; patient completes activity. [place] assists only prior to or following the activity. 4-Supervision or Touching Assistance-helper provides verbal cues and/or touching/steadying and/or contact guard assistance as patient completes activity. Assistance may be provided throughout the activity or intermittently. 3-Partial/Moderate Assistance-helper does LESS THAN HALF the effort. [place] lifts, holds or supports trunk or limbs, but provides less than half the effort. 2-Substantial/Maximal Assistance-helper does MORE THAN HALF the effort. [place] lifts or holds trunk or limbs and provides more than half the effort. 2-Udclbalmy-veilmp does ALL the effort. Patient does none of the effort to complete the activity. Or, the assistance of 2 or more helpers is required for the patient to complete the activity. If activity was not attempted, code reason: 7-Patient Refused. 9-Not Applicable-not attempted and the patient did not perform the activity before the current illness, exacerbation or injury. 10-Not Attempted due to Environmental Limitations-(lack of equipment, weather restraints, etc.). 88-Not Attempted due to Medical Conditions or Safety Concerns. Roll Left to Right (QC): 6 Sit to Lying (QC): 6 Sit to Stand (QC): 6 Chair/Tie-od-Vqhrr Xfer(QC): 5 Car Transfer (QC): 1 Gait Training Does the Patient Walk?: Yes Distance: 5'x2 Walk 10 feet (QC): 88 Walk 50 ft with 2 Turns(QC): 88 Walk 150 ft (QC): 88 Walking 10ft/uneven surface-QC: 88 Gait Persons Needed: 1 Gait Assistive Device: Parallel Bars Wheelchair Training Does the Pt Use a Wheelchair?: Yes Distance: 150 Wheel 50 ft with 2 turns (QC): 6 Wheel 150 ft (QC): 6 Type of Wheelchair: Manual Stair Training #of Steps: 0 1 Step (curb) (QC): 88 4 Steps (QC): 88 12 Steps (QC): 88 Balance Picking up an Object (QC): 88 ADL-Treatment Eating (QC): 6 Oral Hygiene (QC): 6 Shower/Bathe Self (QC): 5 Upper Body Dressing (QC): 6 Lower Body Dressing (QC): 6 On/Off Footwear (QC): 5 Toileting Hygiene (QC): 4 Toilet Transfer (QC): 4 Assessment/Plan Assessment and Plan Assess & Plan/Chief Complaint Assessment: Post Covid with deconditioning s/p severe sepsis Diarrhea Sacral decubitus ulcer now with wound VAC DC with osteomyelitis completing antibiotics tobramycin for 10 days at discharge Hypokalemia Anemia previous transfusion Anxiety and depression Thornton catheter DC 04/28/21 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 Ongoing nausea improved Scopolamine patch Plan: IV abx Wound vac PT OT Depression meds OAC 04/07/2021: Wound VAC Out of bed 04/08/2021: Out of bed Wound VAC 04/09/2021: Supportive care Dramatic improvement already 04/10/2021: Supportive care Thornton catheter required although it is an infection risk 04/11/2021: Supportive care Wound VAC appreciated 04/12/2021: Scopolamine patch Wound VAC 04/13/21: Scop patch Monitor pain 04/14/2021: Supportive care Wound VAC 04/14/2021: Wound VAC Fecal incontinence management 04/15/2021: Wound VAC management Continue depression treatment 04/16/2021: Supportive care Change wound VAC 04/17/2021: Appreciate wound care Cefepime 04/18/2021: Continue aggressive PT Wound VAC 04/19/2021: Supportive care Hold potassium to see if that helps with nausea 04/20/2021: Supportive care Children will visit tomorrow 04/21/2021: Supportive care Family visiting has helped her morale 04/22/2021: Supportive care Wound VAC management 04/23/2021: Supportive care Wound VAC management 04/24/2021: Supportive care Fecal incontinence management 04/25/21: Fecal incontinence training 04/26/2021: Fecal incontinence management Thornton catheter may be able to be discontinued 04/27/2021: Supportive care Bowel incontinence management 04/28/21: Bowel incontinence improved Leave thornton out 04/29/21: Thornton out 04/30/2021: Supportive care Thornton Wound VAC off 05/01/2021: Supportive care Dramatic improvement 05/02/2021: Discharge home tomorrow with tobramycin IV antibiotic for an additional 10 days 05/03/2021: Discharge delayed due to tobramycin abnormal levels 05/04/2021: Tobramycin management 05/05/2021: Dressing changes twice daily Supportive care (1) Post covid-19 condition, unspecified Status: Chronic (2) Sacral decubitus ulcer, stage IV Status: Chronic (3) Severe sepsis Status: Acute (4) UTI (urinary tract infection) TERRA EDWARDS DO May 05, 2021 08:19
[2021-05-05] MEDS: MESALAMINE 250 MG (PENTASA) CAP PO SCH ×3 (08:46→22:11)
[2021-05-05] MEDS: LACTOBACILLUS ACIDOPHILUS (PROBIOTIC) CAPSULE PO SCH ×3 (08:46→18:00)
[2021-05-05] MEDS: OXYBUTYNIN (DITROPAN) 5 MG TAB PO SCH ×3 (08:46→22:11)
[2021-05-05] MEDS: FERROUS SULF 325 MG (IRON) TAB PO SCH (08:46)
[2021-05-05] MEDS: SERTRALINE 50 MG (ZOLOFT) TABLET PO SCH (08:47)
[2021-05-05] MEDS: HYDROcodone/APAP 7.5 MG/325 MG (LORTAB, LORCET PLUS) TABLET PO SCH ×4 (08:47→22:11)
[2021-05-05] MEDS: APIXABAN 5 MG (ELIQUIS) TABLET PO SCH ×2 (08:48→22:11)
[2021-05-05] MEDS: polyethylene glycoL POWDER 17 GM (MIRALAX) PACK PO SCH ×2 (08:48→21:00)
[2021-05-05 09:54] VITALS: BP 92/56
[2021-05-05] MEDS: ATENOLOL 25 MG (TENORMIN) TAB PO SCH ×2 (09:58→22:10)
--- NOTE | 2021-05-05 10:54 | Physical Therapy Daily Note ---
PT Daily Note-Current Subjective Pt. in bed but agrees to up to bthrm , w/c mobility and sit to stands and stretches . Pain Location: No Pain Reported Mental Status Patient Orientation: Normal For Age Transfers SCALE: Activities may be completed with or without assistive devices. 0-Dpjhibziay-havjjvs completes the activity by him/herself with no assistance from a helper. 5-Set-up or Clean-up Assistance-helper sets up or cleans up; patient completes activity. [place] assists only prior to or following the activity. 4-Supervision or Touching Assistance-helper provides verbal cues and/or touching/steadying and/or contact guard assistance as patient completes activity. Assistance may be provided throughout the activity or intermittently. 3-Partial/Moderate Assistance-helper does LESS THAN HALF the effort. [place] lifts, holds or supports trunk or limbs, but provides less than half the effort. 2-Substantial/Maximal Assistance-helper does MORE THAN HALF the effort. [place] lifts or holds trunk or limbs and provides more than half the effort. 8-Pdpdyahqk-tufrce does ALL the effort. Patient does none of the effort to complete the activity. Or, the assistance of 2 or more helpers is required for the patient to complete the activity. If activity was not attempted, code reason: 7-Patient Refused. 9-Not Applicable-not attempted and the patient did not perform the activity before the current illness, exacerbation or injury. 10-Not Attempted due to Environmental Limitations-(lack of equipment, weather restraints, etc.). 88-Not Attempted due to Medical Conditions or Safety Concerns. bed to w/c SBA, w/c to toilet SBA, toilet to w/c MOD I, Weight Bearing Right Lower Extremity: Right Full Weight Bearing Left Lower Extremity: Left Full Weight Bearing Patient is cleared medically to bear weight through bilateral LEs, however due to prolonged illness and bed rest, patients LE's very weak and plantarflexion contractures bilaterally Exercises hamstring and heel cord stretches 3 x 20 sec LLE Treatments w/c mob mod I 100ft x2, sit to stands in // bars x 4 with good wt bearing through LLE and increased DF noted Assessment Current Status: Good Progress PT Short Term Goals Short Term Goals Time Frame: Apr 20, 2021 Roll Left & Right: 4 Sit to lyin Lying to sitting on side of be: 4 Sit to stand: 3 Chair/woe-xh-zkmtf transfer: 3 Toilet transfer: 3 Car transfer: 3 Walk 10 feet: 2 Walk 50 feet with two turns: 1 Walk 150 feet: 1 Does pt use a wc or scooter: Yes Wheel 50ft w/2 turns: 5 Wheel 150 feet: 5 Type: Manual PT Mcc Goals Airway Traffic Controller Goals PT Mcc Goals Time Frame: May 18, 2021 Roll Left & Right (QC): 6 Sit to Lying (QC): 6 Lying-Sitting on Side/Bed(QC): 6 Sit to Stand (QC): 4 Chair/Nhp-fy-Tldlf Xfer(QC): 4 Toilet Transfer (QC): 4 Car Transfer (QC): 4 Does the Patient Walk: Yes Walk 10 feet (QC): 3 Walk 50ft with 2 Turns (QC): 3 Walk 150 ft (QC): 3 Walking 10ft on Uneven Surface: 3 1 Step (curb) (QC): 2 4 Steps (QC): 2 12 Steps (QC): 88 Picking up an Object (QC): 3 Does the Pt use WC or Scooter?: Yes Wheel 50 feet with 2 turns (QC: 6 Type: Manual Wheel 150 feet: 6 Type: Manual (6) PT Plan Treatment/Plan Treatment Plan: Continue Plan of Care Treatment Plan: Bed Mobility, Education, Functional Activity John Paul, Functional Strength, Group Therapy, Gait, Safety, Therapeutic Exercise, Transfers Treatment Duration: May 18, 2021 Frequency: At least 5 of 7 days/Wk (IRF) Estimated Hrs Per Day: 1.5 hours per day Patient and/or Family Agrees t: Yes Safety Risks/Education Patient Education: Transfer Techniques, Correct Positioning, W/C Management, Safety Issues Teaching Recipient: Patient Teaching Methods: Demonstration, Discussion Response to Teaching: Verbalize Understanding, Return Demonstration Time/GCodes Time In: 1025 Time Out: 1050 Total Billed Treatment Time: 25 Total Billed Treatment 1,FA25m KRISSY SHEPHERD PTA May 05, 2021 10:54
[2021-05-05] MEDS: SCOPOLAMINE 1.5 MG (TRANSDERM-SCOP) PATCH TD SCH (12:19)
[2021-05-05] MEDS: SCOPOLAMINE PATCH REMOVAL TP SCH (12:19)
[2021-05-05] MEDS ORDERED: [UNRECOGNIZED DRUG - REMARK] XX NR (13:00)
[2021-05-05 20:00] VITALS: BP 113/76
[2021-05-05] MEDS: MELATONIN 10 MG TABLET PO SCH (22:10)
[2021-05-05] MEDS: TOLTERODINE LA 4 MG (DETROL) CAP PO SCH (22:10)
[2021-05-06] MEDS: CATHETER FLUSH 10 ML SYR IV SCH ×3 (06:20→22:03)
[2021-05-06] MEDS: CEFEPIME INJECTION 2,000 MG in NS (IVPB) 50 ML IV SCH ×3 (06:20→22:03)
[2021-05-06 07:30] VITALS: BP 95/55
[2021-05-06] MEDS: polyethylene glycoL POWDER 17 GM (MIRALAX) PACK PO SCH ×2 (09:22→20:02)
[2021-05-06] MEDS: MESALAMINE 250 MG (PENTASA) CAP PO SCH ×3 (09:45→22:03)
[2021-05-06] MEDS: FERROUS SULF 325 MG (IRON) TAB PO SCH (09:45)
[2021-05-06] MEDS: OXYBUTYNIN (DITROPAN) 5 MG TAB PO SCH ×3 (09:45→22:04)
[2021-05-06] MEDS: APIXABAN 5 MG (ELIQUIS) TABLET PO SCH ×2 (09:45→22:04)
[2021-05-06] MEDS: LACTOBACILLUS ACIDOPHILUS (PROBIOTIC) CAPSULE PO SCH ×3 (09:45→17:57)
[2021-05-06] MEDS: VENlafaxine XR 75 MG (EFFEXOR XR) CAP PO SCH (09:45)
[2021-05-06] MEDS: SERTRALINE 50 MG (ZOLOFT) TABLET PO SCH (09:46)
[2021-05-06] MEDS: MULTIVIT W/MINERALS TAB (THERAGRAN M) PO SCH (09:46)
[2021-05-06] MEDS: HYDROcodone/APAP 7.5 MG/325 MG (LORTAB, LORCET PLUS) TABLET PO SCH ×4 (09:46→22:04)
[2021-05-06] MEDS: ATENOLOL 25 MG (TENORMIN) TAB PO SCH ×2 (09:47→22:04)
--- NOTE | 2021-05-06 12:23 | PM&R Progress Note ---
Subjective HPI/CC On Admission Date Seen by Provider: May 06, 2021 Time Seen by Provider: 12:00 Subjective/Events-last exam 05/06/2021: Patient doing well sleeping currently Friday discharge 05/05/2021: Patient doing well Change dressing twice daily Bowels are moving Tolerating antibiotics 05/04/2021: Pt doing well Disappointed that she can't go home due to unavailable home health and tobramycin dosing. Checked meds and labs Drainage from wound will likely require twice daily dressing changes 05/03/2021: Pt having issues with tobramycin level, its too high Checked meds and labs Not ready to go home yet Will work on that and she is doing very well 05/02/2021: Pt doing really well Changed dressing today Bowels moved yesterday Vomits frequently IV antibiotics of Tobromycin will be changed around and given once a day for an additional ten days 05/01/2021: Pt doing really well Transferring herself Wants to go home this week Continence maintained Ulcer is much improved 04/30/2021: Pt doing really well Wound vac is off Purewick is being used, less incontinence Checked meds and labs 04/29/21: Doing very well Motivated to get home by holiday Thornton cath out and using Purewick 04/28/21: Having a good day Thornton cath was set to be changed today so will attempt to leave out and work on bladder routine with Purewick No pain 04/27/2021: Patient doing well No major issues came for family training Working on bowel incontinence 04/26/2021: Patient doing well Getting up to go to the bathroom She wants Thornton catheter out We will work on incontinence due to wound proximity 04/25/21: Pt doing well Bowel regimen will be maintained Getting up to the commode she had a vasovagal syncopal episode She needs to sit up more and she will do that Very slow recovery 04/24/2021: Patient doing well Working on fecal incontinence Bowel routine is the priority today Check meds and labs 04/23/21: Pt doing well Wound vac will be changed today Fecal incontinence noted Bowel routine will be implemented 04/22/2021: Patient doing well Bowels move this morning with fecal incontinence Increase fluid intake is encouraged 04/21/21: Patient doing well Family visited with children Standing and pivoting very well 04/20/2021: Pt doing really well Wound vac was changed IV Zofran given every morning Changed her Scopolamine patch Children will visit tomorrow 04/19/2021: Pt stood and walked two steps today Wedge in left foot in shoe for foot drop has been helpful Zofran IV will be given every morning 04/18/2021: Pt doing well Catheter will be kept until decubitus ulcer heals BNO suppositories will be ordered for bladder spasms IV iron infusions completed Left foot drop is improving 04/17/2021: Pt doing much better Foot drop will be worked on today Getting up and around today Checked meds and labs Nausea improved 04/16/2021: Pt having some nausea Wound vac came off yesterday, replacing that today IV Zofran given for nausea Garett will restart the wound vac Consulting urology for bladder spasms 04/15/2021: Patient doing very well Visitors today No pain is reported Wound VAC in place Fecal incontinence continues 04/14/2021: Patient doing very well today Stood with a walker today at bedside No pain is reported Wound VAC in place 04/13/21: Patient doing well Scop patch resolving the nausea Pain controlled Wound vac changed No issues 04/12/2021: Scopolamine patch working well Patient doing well Wound VAC maintained Check meds and labs No pain Eating and drinking well Scopolamine patch working well 04/11/2021: Patient doing well Fecal incontinence again last night Participating in therapy Wound VAC changed 04/10/2021: Patient doing well No major concerns PICC line dysfunction will be assessed Foot drop will be addressed with AFO Incontinent of bowel last night 04/09/2021: Patient doing really well Labs stable Hemoglobin 8.6 Wound VAC working well Getting ready to go the parallel bars with physical therapy 04/08/2021: Patient doing very well Was up 4 times yesterday out of bed Loose stools only has occurred once May need to use Questran as needed Check meds labs 04/07/2021: Patient doing very well We will get up in chair for lunch Hemoglobin 8.6 Bowels are moving now so on verge of constipation will change Questran to as needed no pain is reported Wound VAC tolerated well Review of Systems General: Fatigue Objective Exam Vital Signs Vital Signs Date Time Temp Pulse Resp B/P (MAP) Pulse Ox O2 Delivery O2 Flow Rate FiO2 05/06/21 20:20 Room Air 05/06/21 20:00 36.6 83 18 102/57 (72) 99 05/03/21 07:37 0.00 Capillary Refill : General Appearance: No Apparent Distress, WD/WN, Chronically ill, Other (pale, chronically ill) HEENT: PERRL/EOMI, Normal ENT Inspection, Pharynx Normal Neck: Full Range of Motion, Normal Inspection, Non Tender, Supple, Carotid Bruit Respiratory: Chest Non Tender, Lungs Clear, Normal Breath Sounds, No Accessory Muscle Use, No Respiratory Distress Cardiovascular: Regular Rate, Rhythm, No Edema, No Gallop, No JVD, No Murmur, Normal Peripheral Pulses Gastrointestinal: Normal Bowel Sounds, No Organomegaly, No Pulsatile Mass, Non Tender, Soft Back: Normal Inspection, No CVA Tenderness, No Vertebral Tenderness Extremity: Normal Capillary Refill, Normal Inspection, Normal Range of Motion, Non Tender, No Calf Tenderness, No Pedal Edema Neurologic/Psychiatric: Alert, Oriented x3, No Motor/Sensory Deficits, bioassayist II- XII Norm as Tested, Depressed Affect, Motor Weakness (3/5 upper 1/5 lower) Skin: Normal Color, Warm/Dry, Other (coccyx decubitus ulcer with wound vac) Lymphatic: No Adenopathy Results/Procedures Lab Patient resulted labs reviewed. FIM Transfers Therapy Code Descriptions/Definitions Functional [place] Measure: 0=Not Assessed/NA 4=Minimal Assistance 1=Total Assistance 5=Supervision or Setup 2=Maximal Assistance 6=Modified [place] 3=Moderate Assistance 7=Complete IndependenceSCALE: Activities may be completed with or without assistive devices. 5-Hqhjgfomxq-hkhusfg completes the activity by him/herself with no assistance from a helper. 5-Set-up or Clean-up Assistance-helper sets up or cleans up; patient completes activity. [place] assists only prior to or following the activity. 4-Supervision or Touching Assistance-helper provides verbal cues and/or touching/steadying and/or contact guard assistance as patient completes activity. Assistance may be provided throughout the activity or intermittently. 3-Partial/Moderate Assistance-helper does LESS THAN HALF the effort. [place] lifts, holds or supports trunk or limbs, but provides less than half the effort. 2-Substantial/Maximal Assistance-helper does MORE THAN HALF the effort. [place] lifts or holds trunk or limbs and provides more than half the effort. 3-Vrcwxilnb-qumvzj does ALL the effort. Patient does none of the effort to complete the activity. Or, the assistance of 2 or more helpers is required for the patient to complete the activity. If activity was not attempted, code reason: 7-Patient Refused. 9-Not Applicable-not attempted and the patient did not perform the activity before the current illness, exacerbation or injury. 10-Not Attempted due to Environmental Limitations-(lack of equipment, weather restraints, etc.). 88-Not Attempted due to Medical Conditions or Safety Concerns. Roll Left to Right (QC): 6 Sit to Lying (QC): 6 Sit to Stand (QC): 6 Chair/Sfd-qa-Bqkau Xfer(QC): 5 Car Transfer (QC): 1 Gait Training Does the Patient Walk?: Yes Distance: 5'x2 Walk 10 feet (QC): 88 Walk 50 ft with 2 Turns(QC): 88 Walk 150 ft (QC): 88 Walking 10ft/uneven surface-QC: 88 Gait Persons Needed: 1 Gait Assistive Device: Parallel Bars Wheelchair Training Does the Pt Use a Wheelchair?: Yes Distance: 150 Wheel 50 ft with 2 turns (QC): 6 Wheel 150 ft (QC): 6 Type of Wheelchair: Manual Stair Training #of Steps: 0 1 Step (curb) (QC): 88 4 Steps (QC): 88 12 Steps (QC): 88 Balance Picking up an Object (QC): 88 ADL-Treatment Eating (QC): 6 Oral Hygiene (QC): 6 Shower/Bathe Self (QC): 5 Upper Body Dressing (QC): 6 Lower Body Dressing (QC): 6 On/Off Footwear (QC): 5 Toileting Hygiene (QC): 4 Toilet Transfer (QC): 4 Assessment/Plan Assessment and Plan Assess & Plan/Chief Complaint Assessment: Post Covid with deconditioning s/p severe sepsis Diarrhea Sacral decubitus ulcer now with wound VAC DC with osteomyelitis completing antibiotics tobramycin for 10 days at discharge Hypokalemia Anemia previous transfusion Anxiety and depression Thornton catheter DC 04/28/21 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 Ongoing nausea improved Scopolamine patch Plan: IV abx Wound vac PT OT Depression meds OAC 04/07/2021: Wound VAC Out of bed 04/08/2021: Out of bed Wound VAC 04/09/2021: Supportive care Dramatic improvement already 04/10/2021: Supportive care Thornton catheter required although it is an infection risk 04/11/2021: Supportive care Wound VAC appreciated 04/12/2021: Scopolamine patch Wound VAC 04/13/21: Scop patch Monitor pain 04/14/2021: Supportive care Wound VAC 04/14/2021: Wound VAC Fecal incontinence management 04/15/2021: Wound VAC management Continue depression treatment 04/16/2021: Supportive care Change wound VAC 04/17/2021: Appreciate wound care Cefepime 04/18/2021: Continue aggressive PT Wound VAC 04/19/2021: Supportive care Hold potassium to see if that helps with nausea 04/20/2021: Supportive care Children will visit tomorrow 04/21/2021: Supportive care Family visiting has helped her morale 04/22/2021: Supportive care Wound VAC management 04/23/2021: Supportive care Wound VAC management 04/24/2021: Supportive care Fecal incontinence management 04/25/21: Fecal incontinence training 04/26/2021: Fecal incontinence management Thornton catheter may be able to be discontinued 04/27/2021: Supportive care Bowel incontinence management 04/28/21: Bowel incontinence improved Leave thornton out 04/29/21: Thornton out 04/30/2021: Supportive care Thornton Wound VAC off 05/01/2021: Supportive care Dramatic improvement 05/02/2021: Discharge home tomorrow with tobramycin IV antibiotic for an additional 10 days 05/03/2021: Discharge delayed due to tobramycin abnormal levels 05/04/2021: Tobramycin management 05/05/2021: Dressing changes twice daily Supportive care 05/06/2021: Supportive care (1) Post covid-19 condition, unspecified Status: Chronic (2) Sacral decubitus ulcer, stage IV Status: Chronic (3) Severe sepsis Status: Acute (4) UTI (urinary tract infection) TERRA EDWARDS DO May 06, 2021 12:23
[2021-05-06] MEDS: TOBRAMYCIN IV SCH (15:16)
[2021-05-06] MEDS: NS IV SCH (15:16)
[2021-05-06 20:00] VITALS: BP 102/57
[2021-05-06] MEDS: MELATONIN 10 MG TABLET PO SCH (22:03)
[2021-05-06] MEDS: TOLTERODINE LA 4 MG (DETROL) CAP PO SCH (22:03)
[2021-05-07] MEDS: CEFEPIME INJECTION 2,000 MG in NS (IVPB) 50 ML IV SCH ×3 (06:06→21:08)
[2021-05-07] MEDS: CATHETER FLUSH 10 ML SYR IV SCH ×3 (06:07→21:08)
[2021-05-07] MEDS: MULTIVIT W/MINERALS TAB (THERAGRAN M) PO SCH (06:48)
[2021-05-07] MEDS: VENlafaxine XR 75 MG (EFFEXOR XR) CAP PO SCH (06:48)
[2021-05-07 07:32] VITALS: BP 112/59
[2021-05-07 07:43] LABS: BASOPHILS % (AUTO) 1 % (0-10); EOSINOPHILS # (AUTO) 0.3 10^3/uL (0.0-0.3); EOSINOPHILS % (AUTO) 5 % (0-10); HEMATOCRIT 33 % (35-52); HEMOGLOBIN 10.1 g/dL (11.5-16.0); LYMPHOCYTES % (AUTO) 37 % (12-44); MEAN CORPUSCULAR HEMOGLOBIN 32 pg (25-34); MEAN CORPUSCULAR HGB CONC 31 g/dL (32-36); MEAN CORPUSCULAR VOLUME 103 fL (80-99); MEAN PLATELET VOLUME 9.6 fL (9.0-12.2); MONOCYTES # (AUTO) 0.5 10^3/uL (0.0-1.0); MONOCYTES % (AUTO) 10 % (0-12); NEUTROPHILS # (AUTO) 2.5 10^3/uL (1.8-7.8); NEUTROPHILS % (AUTO) 47 % (42-75); PLATELET COUNT 285 10^3/uL (130-400); WHITE BLOOD COUNT 5.3 10^3/uL (4.3-11.0)
[2021-05-07 08:06] LABS: ALBUMIN 2.5 GM/DL (3.2-4.5); BILIRUBIN,TOTAL 0.3 MG/DL (0.1-1.0); CREATININE SERUM 0.7 MG/DL (0.60-1.30); POTASSIUM 3.7 MMOL/L (3.6-5.0); TOTAL PROTEIN 4.8 GM/DL (6.4-8.2)
[2021-05-07] MEDS: HYDROcodone/APAP 7.5 MG/325 MG (LORTAB, LORCET PLUS) TABLET PO SCH ×4 (08:11→21:07)
[2021-05-07] MEDS: APIXABAN 5 MG (ELIQUIS) TABLET PO SCH ×2 (08:12→21:07)
[2021-05-07] MEDS: LACTOBACILLUS ACIDOPHILUS (PROBIOTIC) CAPSULE PO SCH ×3 (08:12→18:25)
[2021-05-07] MEDS: MESALAMINE 250 MG (PENTASA) CAP PO SCH ×3 (08:12→21:07)
[2021-05-07] MEDS: VITAMIN D2 1.25 MG (50,000 UNITS) CAP PO SCH (08:12)
[2021-05-07] MEDS: OXYBUTYNIN (DITROPAN) 5 MG TAB PO SCH ×3 (08:12→21:07)
[2021-05-07] MEDS: FERROUS SULF 325 MG (IRON) TAB PO SCH (08:12)
[2021-05-07] MEDS: polyethylene glycoL POWDER 17 GM (MIRALAX) PACK PO SCH ×2 (08:13→19:42)
[2021-05-07] MEDS: SERTRALINE 50 MG (ZOLOFT) TABLET PO SCH (08:13)
[2021-05-07] MEDS: ATENOLOL 25 MG (TENORMIN) TAB PO SCH ×2 (08:14→19:42)
--- NOTE | 2021-05-07 08:45 | PM&R Progress Note ---
Subjective HPI/CC On Admission Date Seen by Provider: May 07, 2021 Time Seen by Provider: 09:00 Subjective/Events-last exam 05/07/2021: Pt ready for discharge tomorrow at the bedside today for eduction and training Tobro was slightly elevated but otherwise doing very well 05/06/2021: Patient doing well sleeping currently Friday discharge 05/05/2021: Patient doing well Change dressing twice daily Bowels are moving Tolerating antibiotics 05/04/2021: Pt doing well Disappointed that she can't go home due to unavailable home health and tobramycin dosing. Checked meds and labs Drainage from wound will likely require twice daily dressing changes 05/03/2021: Pt having issues with tobramycin level, its too high Checked meds and labs Not ready to go home yet Will work on that and she is doing very well 05/02/2021: Pt doing really well Changed dressing today Bowels moved yesterday Vomits frequently IV antibiotics of Tobromycin will be changed around and given once a day for an additional ten days 05/01/2021: Pt doing really well Transferring herself Wants to go home this week Continence maintained Ulcer is much improved 04/30/2021: Pt doing really well Wound vac is off Purewick is being used, less incontinence Checked meds and labs 04/29/21: Doing very well Motivated to get home by holiday Thornton cath out and using Purewick 04/28/21: Having a good day Thornton cath was set to be changed today so will attempt to leave out and work on bladder routine with Purewick No pain 04/27/2021: Patient doing well No major issues came for family training Working on bowel incontinence 04/26/2021: Patient doing well Getting up to go to the bathroom She wants Thornton catheter out We will work on incontinence due to wound proximity 04/25/21: Pt doing well Bowel regimen will be maintained Getting up to the commode she had a vasovagal syncopal episode She needs to sit up more and she will do that Very slow recovery 04/24/2021: Patient doing well Working on fecal incontinence Bowel routine is the priority today Check meds and labs 04/23/21: Pt doing well Wound vac will be changed today Fecal incontinence noted Bowel routine will be implemented 04/22/2021: Patient doing well Bowels move this morning with fecal incontinence Increase fluid intake is encouraged 04/21/21: Patient doing well Family visited with children Standing and pivoting very well 04/20/2021: Pt doing really well Wound vac was changed IV Zofran given every morning Changed her Scopolamine patch Children will visit tomorrow 04/19/2021: Pt stood and walked two steps today Wedge in left foot in shoe for foot drop has been helpful Zofran IV will be given every morning 04/18/2021: Pt doing well Catheter will be kept until decubitus ulcer heals BNO suppositories will be ordered for bladder spasms IV iron infusions completed Left foot drop is improving 04/17/2021: Pt doing much better Foot drop will be worked on today Getting up and around today Checked meds and labs Nausea improved 04/16/2021: Pt having some nausea Wound vac came off yesterday, replacing that today IV Zofran given for nausea Garett will restart the wound vac Consulting urology for bladder spasms 04/15/2021: Patient doing very well Visitors today No pain is reported Wound VAC in place Fecal incontinence continues 04/14/2021: Patient doing very well today Stood with a walker today at bedside No pain is reported Wound VAC in place 04/13/21: Patient doing well Scop patch resolving the nausea Pain controlled Wound vac changed No issues 04/12/2021: Scopolamine patch working well Patient doing well Wound VAC maintained Check meds and labs No pain Eating and drinking well Scopolamine patch working well 04/11/2021: Patient doing well Fecal incontinence again last night Participating in therapy Wound VAC changed 04/10/2021: Patient doing well No major concerns PICC line dysfunction will be assessed Foot drop will be addressed with AFO Incontinent of bowel last night 04/09/2021: Patient doing really well Labs stable Hemoglobin 8.6 Wound VAC working well Getting ready to go the parallel bars with physical therapy 04/08/2021: Patient doing very well Was up 4 times yesterday out of bed Loose stools only has occurred once May need to use Questran as needed Check meds labs 04/07/2021: Patient doing very well We will get up in chair for lunch Hemoglobin 8.6 Bowels are moving now so on verge of constipation will change Questran to as needed no pain is reported Wound VAC tolerated well Review of Systems General: Fatigue, Malaise Objective Exam Vital Signs Vital Signs Date Time Temp Pulse Resp B/P (MAP) Pulse Ox O2 Delivery O2 Flow Rate FiO2 05/07/21 20:45 Room Air 05/07/21 19:50 36.6 75 16 96/62 (73) 99 05/03/21 07:37 0.00 Capillary Refill : General Appearance: No Apparent Distress, WD/WN, Chronically ill, Other (pale, chronically ill) HEENT: PERRL/EOMI, Normal ENT Inspection, Pharynx Normal Neck: Full Range of Motion, Normal Inspection, Non Tender, Supple, Carotid Bruit Respiratory: Chest Non Tender, Lungs Clear, Normal Breath Sounds, No Accessory Muscle Use, No Respiratory Distress Cardiovascular: Regular Rate, Rhythm, No Edema, No Gallop, No JVD, No Murmur, Normal Peripheral Pulses Gastrointestinal: Normal Bowel Sounds, No Organomegaly, No Pulsatile Mass, Non Tender, Soft Back: Normal Inspection, No CVA Tenderness, No Vertebral Tenderness Extremity: Normal Capillary Refill, Normal Inspection, Normal Range of Motion, Non Tender, No Calf Tenderness, No Pedal Edema Neurologic/Psychiatric: Alert, Oriented x3, No Motor/Sensory Deficits, risk developer II- XII Norm as Tested, Depressed Affect, Motor Weakness (3/5 upper 1/5 lower) Skin: Normal Color, Warm/Dry, Other (coccyx decubitus ulcer with wound vac) Lymphatic: No Adenopathy Results/Procedures Lab Laboratory Tests 05/07/21 07:35 Patient resulted labs reviewed. FIM Transfers Therapy Code Descriptions/Definitions Functional [place] Measure: 0=Not Assessed/NA 4=Minimal Assistance 1=Total Assistance 5=Supervision or Setup 2=Maximal Assistance 6=Modified [place] 3=Moderate Assistance 7=Complete IndependenceSCALE: Activities may be completed with or without assistive devices. 4-Ibuygdeyop-pusghhn completes the activity by him/herself with no assistance f rom a helper. 5-Set-up or Clean-up Assistance-helper sets up or cleans up; patient completes activity. [place] assists only prior to or following the activity. 4-Supervision or Touching Assistance-helper provides verbal cues and/or touching/steadying and/or contact guard assistance as patient completes activity. Assistance may be provided throughout the activity or intermittently. 3-Partial/Moderate Assistance-helper does LESS THAN HALF the effort. [place] lifts, holds or supports trunk or limbs, but provides less than half the effort. 2-Substantial/Maximal Assistance-helper does MORE THAN HALF the effort. [place] lifts or holds trunk or limbs and provides more than half the effort. 5-Tkkfrbqtd-fcyfha does ALL the effort. Patient does none of the effort to complete the activity. Or, the assistance of 2 or more helpers is required for the patient to complete the activity. If activity was not attempted, code reason: 7-Patient Refused. 9-Not Applicable-not attempted and the patient did not perform the activity before the current illness, exacerbation or injury. 10-Not Attempted due to Environmental Limitations-(lack of equipment, weather restraints, etc.). 88-Not Attempted due to Medical Conditions or Safety Concerns. Roll Left to Right (QC): 6 Sit to Lying (QC): 6 Sit to Stand (QC): 6 Chair/Dxq-vj-Wuvsq Xfer(QC): 5 Car Transfer (QC): 1 Gait Training Does the Patient Walk?: Yes Distance: 5'x2 Walk 10 feet (QC): 88 Walk 50 ft with 2 Turns(QC): 88 Walk 150 ft (QC): 88 Walking 10ft/uneven surface-QC: 88 Gait Persons Needed: 1 Gait Assistive Device: Parallel Bars Wheelchair Training Does the Pt Use a Wheelchair?: Yes Distance: 150 Wheel 50 ft with 2 turns (QC): 6 Wheel 150 ft (QC): 6 Type of Wheelchair: Manual Stair Training #of Steps: 0 1 Step (curb) (QC): 88 4 Steps (QC): 88 12 Steps (QC): 88 Balance Picking up an Object (QC): 88 ADL-Treatment Eating (QC): 6 Oral Hygiene (QC): 6 Shower/Bathe Self (QC): 5 Upper Body Dressing (QC): 6 Lower Body Dressing (QC): 6 On/Off Footwear (QC): 5 Toileting Hygiene (QC): 4 Toilet Transfer (QC): 4 Assessment/Plan Assessment and Plan Assess & Plan/Chief Complaint Assessment: Post Covid with deconditioning s/p severe sepsis Diarrhea Sacral decubitus ulcer now with wound VAC DC with osteomyelitis completing antibiotics tobramycin for 10 days at discharge Hypokalemia Anemia previous transfusion Anxiety and depression Thornton catheter DC 04/28/21 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 Ongoing nausea improved Scopolamine patch Plan: IV abx Wound vac PT OT Depression meds OAC 04/07/2021: Wound VAC Out of bed 04/08/2021: Out of bed Wound VAC 04/09/2021: Supportive care Dramatic improvement already 04/10/2021: Supportive care Thornton catheter required although it is an infection risk 04/11/2021: Supportive care Wound VAC appreciated 04/12/2021: Scopolamine patch Wound VAC 04/13/21: Scop patch Monitor pain 04/14/2021: Supportive care Wound VAC 04/14/2021: Wound VAC Fecal incontinence management 04/15/2021: Wound VAC management Continue depression treatment 04/16/2021: Supportive care Change wound VAC 04/17/2021: Appreciate wound care Cefepime 04/18/2021: Continue aggressive PT Wound VAC 04/19/2021: Supportive care Hold potassium to see if that helps with nausea 04/20/2021: Supportive care Children will visit tomorrow 04/21/2021: Supportive care Family visiting has helped her morale 04/22/2021: Supportive care Wound VAC management 04/23/2021: Supportive care Wound VAC management 04/24/2021: Supportive care Fecal incontinence management 04/25/21: Fecal incontinence training 04/26/2021: Fecal incontinence management Thornton catheter may be able to be discontinued 04/27/2021: Supportive care Bowel incontinence management 04/28/21: Bowel incontinence improved Leave thornton out 04/29/21: Thornton out 04/30/2021: Supportive care Thornton Wound VAC off 05/01/2021: Supportive care Dramatic improvement 05/02/2021: Discharge home tomorrow with tobramycin IV antibiotic for an additional 10 days 05/03/2021: Discharge delayed due to tobramycin abnormal levels 05/04/2021: Tobramycin management 05/05/2021: Dressing changes twice daily Supportive care 05/06/2021: Supportive care 05/07/2021: Discharge home tomorrow Has been 148 days in the hospital (1) Post covid-19 condition, unspecified Status: Chronic (2) Sacral decubitus ulcer, stage IV Status: Chronic (3) Severe sepsis Status: Acute (4) UTI (urinary tract infection) TERRA EDWARDS DO May 07, 2021 08:45
--- NOTE | 2021-05-07 09:03 | Occupational Ther Daily Note ---
OT Current Status-Daily Note Subjective Denies pain, excited about upcoming discharge Appearance Left sitting EOB, spouse in room. Mental Status/Objective Patient Orientation: Person, Place, Time, Situation Attachments: IV ADL-Treatment Therapy Code Descriptions/Definitions Functional Monitor Measure: 0=Not Assessed/NA 4=Minimal Assistance 1=Total Assistance 5=Supervision or Setup 2=Maximal Assistance 6=Modified Monitor 3=Moderate Assistance 7=Complete IndependenceSCALE: Activities may be completed with or without assistive devices. 6-Hoxplwazqj-xfvdcmi completes the activity by him/herself with no assistance from a helper. 5-Set-up or Clean-up Assistance-helper sets up or cleans up; patient completes activity. [place] assists only prior to or following the activity. 4-Supervision or Touching Assistance-helper provides verbal cues and/or touching/steadying and/or contact guard assistance as patient completes activity. Assistance may be provided throughout the activity or intermittently. 3-Partial/Moderate Assistance-helper does LESS THAN HALF the effort. [place] lifts, holds or supports trunk or limbs, but provides less than half the effort. 2-Substantial/Maximal Assistance-helper does MORE THAN HALF the effort. [place] lifts or holds trunk or limbs and provides more than half the effort. 3-Uzxmdsarc-vxnhii does ALL the effort. Patient does none of the effort to complete the activity. Or, the assistance of 2 or more helpers is required for the patient to complete the activity. If activity was not attempted, code reason: 7-Patient Refused. 9-Not Applicable-not attempted and the patient did not perform the activity before the current illness, exacerbation or injury. 10-Not Attempted due to Environmental Limitations-(lack of equipment, weather restraints, etc.). 88-Not Attempted due to Medical Conditions or Safety Concerns. Eating (QC): 6 Oral Hygiene (QC): 6 Shower/Bathe Self (QC): 6 Upper Body Dressing (QC): 6 Lower Body Dressing (QC): 6 On/Off Footwear: 6 Toileting Hygiene (QC): 4 (Min a for thoroughness following BM only. Sup/CGA for clothing management in standing) Toilet Transfer (QC): 4 Shower performed; 100% completed in sitting. Good recall of compensatory strategies (lateral pelvic leans) and adaptive equipment (LHS) learned in previous sessions. No physical assistance or cues required. Pt retrieved clothes at W/c level. CGA for safety with all stand pivot transfers. Clothing donned at bed level. Pt utilizes shoe lacer to thread LB clothing over feet and returns to supine for clothing management. Short rest breaks needed throughout due to impaired activity tolerance. Spouse present throughout session and reports comfort of level of assist needed. Education OT Patient Education: Correct positioning, Energy conservation, Progress toward Goal/Update tx plan, Purpose of tx/functional activities, Transfer techniques Teaching Recipient: Patient, Family Teaching Methods: Discussion Response to Teaching: Verbalize Understanding, Return Demonstration OT Short Term Goals Short Term Goals Time Frame: Apr 20, 2021 Eatin Oral hygiene: 5 Toileting hygiene: 2 Shower/bathe self: 2 Upper body dressin Lower body dressin Putting on/taking off footwear: 2 OT Superintendent [place]ager[place] Goals Superintendent [place] Goals Time Frame: May 04, 2021 Eating (QC): 6 Oral Hygiene (QC): 5 Toileting Hygiene (QC): 4 Shower/Bathe Self (QC): 4 Upper Body Dressing (QC): 5 Lower Body Dressing (QC): 4 On/Off Footwear (QC): 4 1=Demonstrate adherence to instructed precautions during ADL tasks. 2=Patient will verbalize/demonstrate understanding of assistive devices/modifications for ADL. 3=Patient will improve strength/tolerance for activity to enable patient to perform ADL's. OT Education/Plan Problem List/Assessment Assessment: Decreased Activ Tolerance, Decreased UE Strength, Impaired Funct Balance, Impaired I ADL's, Impaired Self-Care Skills Discharge Recommendations Plan/Recommendations: Continue POC Treatment Plan/Plan of Care Treatment,Training & Education: Yes Patient would benefit from OT for education, treatment and training to promote independence in ADL's, mobility, safety and/or upper extremity function for ADL's. Plan of Care: ADL Retraining, Caregiver Training, Functional Mobility, Group Exercise/Act as Ind, UE Funct Exercise/Act, UE Neuromus Re-Ed/Coord, W/C Management Training Treatment Duration: May 09, 2021 Frequency: At least 5 of 7 days/Wk (IRF) Estimated Hrs Per Day: 1.5 hours per day Agreement: Yes Rehab Potential: Fair Time/GCodes Start Time: 07:45 Stop Time: 09:00 Total Time Billed (hr/min): 75 Billed Treatment Time 1 visit ADL x5 Latoya Becker OT May 07, 2021 09:03
--- NOTE | 2021-05-07 11:01 | Physical Therapy Daily Note ---
PT Daily Note-Current Subjective Pt. agrees to PT. She is very excited to go home tomorrow. "I'll be up sitting in the doorway at 530AM" Pain Location: No Pain Reported Mental Status Patient Orientation: Normal For Age Transfers SCALE: Activities may be completed with or without assistive devices. 4-Qeodvkvjpa-elwkqbf completes the activity by him/herself with no assistance from a helper. 5-Set-up or Clean-up Assistance-helper sets up or cleans up; patient completes activity. [place] assists only prior to or following the activity. 4-Supervision or Touching Assistance-helper provides verbal cues and/or maurisio nichole/steadying and/or contact guard assistance as patient completes activity. Assistance may be provided throughout the activity or intermittently. 3-Partial/Moderate Assistance-helper does LESS THAN HALF the effort. [place] lifts, holds or supports trunk or limbs, but provides less than half the effort. 2-Substantial/Maximal Assistance-helper does MORE THAN HALF the effort. [place] lifts or holds trunk or limbs and provides more than half the effort. 7-Zziqlafke-wrnhhq does ALL the effort. Patient does none of the effort to complete the activity. Or, the assistance of 2 or more helpers is required for the patient to complete the activity. If activity was not attempted, code reason: 7-Patient Refused. 9-Not Applicable-not attempted and the patient did not perform the activity before the current illness, exacerbation or injury. 10-Not Attempted due to Environmental Limitations-(lack of equipment, weather restraints, etc.). 88-Not Attempted due to Medical Conditions or Safety Concerns. Roll Left & Right (QC): 6 Sit to Lying (QC): 6 Lying to Sitting/Side of Bed(Q: 6 Sit to Stand (QC): 6 Chair/Nzu-aw-Ykdhu Xfer(QC): 6 Toilet Transfer (QC): 6 Car Transfer (QC): 5 Weight Bearing Right Lower Extremity: Right Full Weight Bearing Left Lower Extremity: Left Full Weight Bearing Patient is cleared medically to bear weight through bilateral LEs, however due to prolonged illness and bed rest, patients LE's very weak and plantarflexion contractures bilaterally Gait Training Does the Patient Walk?: Yes Walk 10 feet (QC): 4 Walk 50 ft with 2 Turns(QC): 88 Walk 150 ft (QC): 88 Walking 10ft/uneven surface-QC: 88 Gait Persons Needed: 1 Gait Assistive Device: Parallel Bars Pt. ambulated 12 ft x 2 // bars CGA , turning with CGA, left ankle continues in PF contracture and needs tactile stability to keep from inverting at times, more so as pt walks further Wheelchair Training Does the Pt Use a Wheelchair?: Yes Wheel 50 ft with 2 turns (QC): 6 Wheel 150 ft (QC): 6 Type of Wheelchair: Manual Exercises bilat HC and HS stretches 4 x 20 sec each Treatments TRFs, w/c mobility, stretches, gait in // bars Assessment Current Status: Good Progress meets goals PT Short Term Goals Short Term Goals Time Frame: Apr 20, 2021 Roll Left & Right: 4 Sit to lyin Lying to sitting on side of be: 4 Sit to stand: 3 Chair/chl-bb-xitjs transfer: 3 Toilet transfer: 3 Car transfer: 3 Walk 10 feet: 2 Walk 50 feet with two turns: 1 Walk 150 feet: 1 Does pt use a wc or scooter: Yes Wheel 50ft w/2 turns: 5 Wheel 150 feet: 5 Type: Manual PT Burlesque Dancer Goals Burlesque Dancer Goals PT Burlesque Dancer Goals Time Frame: May 18, 2021 Roll Left & Right (QC): 6 Sit to Lying (QC): 6 Lying-Sitting on Side/Bed(QC): 6 Sit to Stand (QC): 4 Chair/Bjk-xt-Tfbjf Xfer(QC): 4 Toilet Transfer (QC): 4 Car Transfer (QC): 4 Does the Patient Walk: Yes Walk 10 feet (QC): 3 Walk 50ft with 2 Turns (QC): 3 Walk 150 ft (QC): 3 Walking 10ft on Uneven Surface: 3 1 Step (curb) (QC): 2 4 Steps (QC): 2 12 Steps (QC): 88 Picking up an Object (QC): 3 Does the Pt use WC or Scooter?: Yes Wheel 50 feet with 2 turns (QC: 6 Type: Manual Wheel 150 feet: 6 Type: Manual (6) PT Plan Treatment/Plan Treatment Plan: Continue Plan of Care Treatment Plan: Bed Mobility, Education, Functional Activity John Paul, Functional Strength, Group Therapy, Gait, Safety, Therapeutic Exercise, Transfers Treatment Duration: May 18, 2021 Frequency: At least 5 of 7 days/Wk (IRF) Estimated Hrs Per Day: 1.5 hours per day Patient and/or Family Agrees t: Yes Safety Risks/Education Patient Education: Gait Training, Transfer Techniques, Correct Positioning, W/C Management, Disease Process, Safety Issues Teaching Recipient: Patient Teaching Methods: Demonstration, Discussion Response to Teaching: Verbalize Understanding, Return Demonstration, Reinforcement Needed Time/GCodes Time In: 1015 Time Out: 1100 Total Billed Treatment Time: 45 Total Billed Treatment 1,EX15m,GT15,WC15m KRISSY SHEPHERD HEAD START ASSISTANT TEACHER May 07, 2021 11:01
--- NOTE | 2021-05-07 14:22 | Occupational Ther Daily Note ---
OT Current Status-Daily Note Subjective Denies pain, agreeable to treatment. Appearance Left sitting EOB, all needs within reach. Mental Status/Objective Patient Orientation: Person, Place, Time, Situation Attachments: IV ADL-Treatment Therapy Code Descriptions/Definitions Functional [place] Measure: 0=Not Assessed/NA 4=Minimal Assistance 1=Total Assistance 5=Supervision or Setup 2=Maximal Assistance 6=Modified [place] 3=Moderate Assistance 7=Complete IndependenceSCALE: Activities may be completed with or without assistive devices. 7-Lxwottmolc-wllfoug completes the activity by him/herself with no assistance from a helper. 5-Set-up or Clean-up Assistance-helper sets up or cleans up; patient completes activity. [place] assists only prior to or following the activity. 4-Supervision or Touching Assistance-helper provides verbal cues and/or touching/steadying and/or contact guard assistance as patient completes activity. Assistance may be provided throughout the activity or intermittently. 3-Partial/Moderate Assistance-helper does LESS THAN HALF the effort. [place] lifts, holds or supports trunk or limbs, but provides less than half the effort. 2-Substantial/Maximal Assistance-helper does MORE THAN HALF the effort. [place] lifts or holds trunk or limbs and provides more than half the effort. 3-Arqkhxzrg-pszczt does ALL the effort. Patient does none of the effort to complete the activity. Or, the assistance of 2 or more helpers is required for the patient to complete the activity. If activity was not attempted, code reason: 7-Patient Refused. 9-Not Applicable-not attempted and the patient did not perform the activity before the current illness, exacerbation or injury. 10-Not Attempted due to Environmental Limitations-(lack of equipment, weather restraints, etc.). 88-Not Attempted due to Medical Conditions or Safety Concerns. Toileting Hygiene (QC): 6 Toilet Transfer (QC): 6 Toilet transfer: Mod I for use of grab bar. No assist needed for tsering care or clothing management. Pt does require min a for thoroughness if having BM. Other Treatment Pt participated in UE exercises with 2# hand held weight. Goal to promote increased strength and endurance needed for adls and transfers. Cues for technique and to complete exercise through full range, especially with fatigue. 10x1 in all planes. Education OT Patient Education: Energy conservation Teaching Recipient: Patient Teaching Methods: Discussion Response to Teaching: Verbalize Understanding, Reinforcement Needed OT Short Term Goals Short Term Goals Time Frame: Apr 20, 2021 Eatin Oral hygiene: 5 Toileting hygiene: 2 Shower/bathe self: 2 Upper body dressin Lower body dressin Putting on/taking off footwear: 2 OT [facility] Goals Child Support Case Officer Goals Time Frame: May 04, 2021 Eating (QC): 6 (met) Oral Hygiene (QC): 5 (met) Toileting Hygiene (QC): 4 (met) Shower/Bathe Self (QC): 4 (met) Upper Body Dressing (QC): 5 (met) Lower Body Dressing (QC): 4 (met) On/Off Footwear (QC): 4 (met) 1=Demonstrate adherence to instructed precautions during ADL tasks. 2=Patient will verbalize/demonstrate understanding of assistive devices/modifications for ADL. 3=Patient will improve strength/tolerance for activity to enable patient to perform ADL's. OT Education/Plan Problem List/Assessment Assessment: Decreased Activ Tolerance, Decreased UE Strength, Impaired Funct Balance, Impaired I ADL's, Impaired Self-Care Skills Discharge Recommendations Plan/Recommendations: Continue POC Treatment Plan/Plan of Care Treatment,Training & Education: Yes Patient would benefit from OT for education, treatment and training to promote independence in ADL's, mobility, safety and/or upper extremity function for ADL's. Plan of Care: ADL Retraining, Caregiver Training, Functional Mobility, Group Exercise/Act as Ind, UE Funct Exercise/Act, UE Neuromus Re-Ed/Coord, W/C Management Training Treatment Duration: May 09, 2021 Frequency: At least 5 of 7 days/Wk (IRF) Estimated Hrs Per Day: 1.5 hours per day Agreement: Yes Rehab Potential: Fair Time/GCodes Start Time: 13:55 Stop Time: 14:10 Total Time Billed (hr/min): 15 Billed Treatment Time 1 visit EX Latoya Becker OT May 07, 2021 14:22
--- NOTE | 2021-05-07 15:15 | Physical Therapy Daily Note ---
PT Daily Note-Current Subjective Pt. agrees to Rx. Excited to go home tomorrow after 150 some days in hospital Pain Location: No Pain Reported Mental Status Patient Orientation: Normal For Age Transfers SCALE: Activities may be completed with or without assistive devices. 4-Lmuipkhjjj-jjsepud completes the activity by him/herself with no assistance from a helper. 5-Set-up or Clean-up Assistance-helper sets up or cleans up; patient completes activity. [place] assists only prior to or following the activity. 4-Supervision or Touching Assistance-helper provides verbal cues and/or touching/steadying and/or contact guard assistance as patient completes activity. Assistance may be provided throughout the activity or intermittently. 3-Partial/Moderate Assistance-helper does LESS THAN HALF the effort. [place] lifts, holds or supports trunk or limbs, but provides less than half the effort. 2-Substantial/Maximal Assistance-helper does MORE THAN HALF the effort. [place] lifts or holds trunk or limbs and provides more than half the effort. 8-Urfqnsmdy-sqpady does ALL the effort. Patient does none of the effort to co mplete the activity. Or, the assistance of 2 or more helpers is required for the patient to complete the activity. If activity was not attempted, code reason: 7-Patient Refused. 9-Not Applicable-not attempted and the patient did not perform the activity before the current illness, exacerbation or injury. 10-Not Attempted due to Environmental Limitations-(lack of equipment, weather restraints, etc.). 88-Not Attempted due to Medical Conditions or Safety Concerns. SPTs bed to w/c and back SBA to Mod I Weight Bearing Right Lower Extremity: Right Full Weight Bearing Left Lower Extremity: Left Full Weight Bearing Patient is cleared medically to bear weight through bilateral LEs, however due to prolonged illness and bed rest, patients LE's very weak and plantarflexion contractures bilaterally Wheelchair Training Does the Pt Use a Wheelchair?: Yes Wheel 50 ft with 2 turns (QC): 6 Wheel 150 ft (QC): 6 Type of Wheelchair: Manual Rx emphasizing w/ mobility , pt. demonstrating indep in managing buttons to enter and exit elevator. Pt. indep in straightways and turns, as well as up down ramp approx 30 ft, suing feet and UEs to propel forward and back. Good management of w/c Exercises Seated Therapy Exercises: Long arc quads Seated Reps: 12 Treatments w/c mob, TRFs Assessment Current Status: Good Progress PT Short Term Goals Short Term Goals Time Frame: Apr 20, 2021 Roll Left & Right: 4 Sit to lyin Lying to sitting on side of be: 4 Sit to stand: 3 Chair/lwe-un-jomzb transfer: 3 Toilet transfer: 3 Car transfer: 3 Walk 10 feet: 2 Walk 50 feet with two turns: 1 Walk 150 feet: 1 Does pt use a wc or scooter: Yes Wheel 50ft w/2 turns: 5 Wheel 150 feet: 5 Type: Manual PT Assisted Goals Assisted Goals PT Architect Internship Goals Time Frame: May 18, 2021 Roll Left & Right (QC): 6 Sit to Lying (QC): 6 Lying-Sitting on Side/Bed(QC): 6 Sit to Stand (QC): 4 Chair/Dzf-xr-Lzthf Xfer(QC): 4 Toilet Transfer (QC): 4 Car Transfer (QC): 4 Does the Patient Walk: Yes Walk 10 feet (QC): 3 Walk 50ft with 2 Turns (QC): 3 Walk 150 ft (QC): 3 Walking 10ft on Uneven Surface: 3 1 Step (curb) (QC): 2 4 Steps (QC): 2 12 Steps (QC): 88 Picking up an Object (QC): 3 Does the Pt use WC or Scooter?: Yes Wheel 50 feet with 2 turns (QC: 6 Type: Manual Wheel 150 feet: 6 Type: Manual (6) PT Plan Treatment/Plan Treatment Plan: Continue Plan of Care Treatment Plan: Bed Mobility, Education, Functional Activity [place], Functional Strength, Group Therapy, Gait, Safety, Therapeutic Exercise, Transfers Treatment Duration: May 18, 2021 Frequency: At least 5 of 7 days/Wk (IRF) Estimated Hrs Per Day: 1.5 hours per day Patient and/or Family Agrees t: Yes Safety Risks/Education Patient Education: Transfer Techniques, Correct Positioning, W/C Management, Safety Issues Teaching Recipient: Patient Teaching Methods: Demonstration, Discussion Response to Teaching: Verbalize Understanding, Return Demonstration, Reinforcement Needed Time/GCodes Time In: 1430 Time Out: 1515 Total Billed Treatment Time: 45 Total Billed Treatment 1,WC25m,FA20m KRISSY SHEPHERD PTA May 07, 2021 15:14
[2021-05-07 19:50] VITALS: BP 96/62
[2021-05-07] MEDS: MELATONIN 10 MG TABLET PO SCH (21:07)
[2021-05-07] MEDS: TOLTERODINE LA 4 MG (DETROL) CAP PO SCH (21:07)
--- NOTE | 2021-05-08 05:58 | Discharge Summary ---
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 Ongoing nausea improved Scopolamine patch Plan: IV abx Wound vac PT OT Depression meds OAC 04/07/2021: Wound VAC Out of bed 04/08/2021: Out of bed Wound VAC 04/09/2021: Supportive care Dramatic improvement already 04/10/2021: Supportive care Thornton catheter required although it is an infection risk 04/11/2021: Supportive care Wound VAC appreciated 04/12/2021: Scopolamine patch Wound VAC 04/13/21: Scop patch Monitor pain 04/14/2021: Supportive care Wound VAC 04/14/2021: Wound VAC Fecal incontinence management 04/15/2021: Wound VAC management Continue depression treatment 04/16/2021: Supportive care Change wound VAC 04/17/2021: Appreciate wound care Cefepime 04/18/2021: Continue aggressive PT Wound VAC 04/19/2021: Supportive care Hold potassium to see if that helps with nausea 04/20/2021: Supportive care Children will visit tomorrow 04/21/2021: Supportive care Family visiting has helped her morale 04/22/2021: Supportive care Wound VAC management 04/23/2021: Supportive care Wound VAC management 04/24/2021: Supportive care Fecal incontinence management 04/25/21: Fecal incontinence training 04/26/2021: Fecal incontinence management Thornton catheter may be able to be discontinued 04/27/2021: Supportive care Bowel incontinence management 04/28/21: Bowel incontinence improved Leave thornton out 04/29/21: Thornton out 04/30/2021: Supportive care Thornton Wound VAC off 05/01/2021: Supportive care Dramatic improvement 05/02/2021: Discharge home tomorrow with tobramycin IV antibiotic for an additional 10 days 05/03/2021: Discharge delayed due to tobramycin abnormal levels 05/04/2021: Tobramycin management 05/05/2021: Dressing changes twice daily Supportive care 05/06/2021: Supportive care 05/07/2021: Discharge home tomorrow Has been 148 days in the hospital (1) Post covid-19 condition, unspecified Status: Chronic (2) Sacral decubitus ulcer, stage IV Status: Chronic (3) Severe sepsis Status: Acute (4) UTI (urinary tract infection) Discharge Summary Discharge Physical Examination Allergies: Coded Allergies: No Known Drug Allergies (Unverified , 03/28/21) Vitals & I&Os Vital Signs Date Time Temp Pulse Resp B/P (MAP) Pulse Ox O2 Delivery O2 Flow Rate FiO2 05/08/21 15:16 36.2 85 16 100/54 94 Room Air 0.00 General Appearance: Alert, Oriented X3, Cooperative Respiratory: Clear to Auscultation Cardiovascular: Regular Rate Psych/Mental Status: Mental Status NL Hospital Course Was the Problem List Reviewed?: Yes Pt had a lengthy hospital course for 33 days in inpatient rehab due to 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 She did ultimately improve enough to be able to improve her independence in ADLs and ambulation with a wheelchair. Her was also committed to care taking and she only needed 10 more doses of Tobramycin to completed her antibiotics for osteomyelitis of the sacral decubitus ulcer managed by wound care and she was deemed stable for DC. Labs (last 24 hrs) Laboratory Tests 04/07/21 06:00: White Blood Count 6.6, Red Blood Count 2.82L, Hemoglobin 8.6L, Hematocrit 29L, Mean Corpuscular Volume 101H, Mean Corpuscular Hemoglobin 31, Mean Corpuscular Hemoglobin Concent 30L, Red Cell Distribution Width 16.2H, Platelet Count 237, Mean Platelet Volume 9.3, Immature Granulocyte % (Auto) 1, Neutrophils (%) (Auto) 45, Lymphocytes (%) (Auto) 38, Monocytes (%) (Auto) 10, Eosinophils (%) (Auto) 6, Basophils (%) (Auto) 1, Neutrophils # (Auto) 3.0, Lymphocytes # (Auto) 2.5, Monocytes # (Auto) 0.7, Eosinophils # (Auto) 0.4H, Basophils # (Auto) 0.1, Immature Granulocyte # (Auto) 0.0, Sodium Level 142, Potassium Level 3.6, Chloride Level 114H, Carbon Dioxide Level 20L, Anion Gap 8, Blood Urea Nitrogen 12, Creatinine 0.66, Estimat Glomerular Filtration Rate 100, BUN/Creatinine Ratio 18, Glucose Level 77, Calcium Level 8.0L, Corrected Calcium 9.0, Total Bilirubin 0.4, Aspartate Amino Transf (AST/SGOT) 18, Alanine Aminotransferase (ALT/SGPT) 13, Alkaline Phosphatase 65, Total Protein 4.6L, Albumin 2.8L 04/11/21 11:35: White Blood Count 5.1, Red Blood Count 2.78L, Hemoglobin 8.5L, Hematocrit 28L, Mean Corpuscular Volume 101H, Mean Corpuscular Hemoglobin 31, Mean Corpuscular Hemoglobin Concent 30L, Red Cell Distribution Width 16.4H, Platelet Count 225, Mean Platelet Volume 10.2, Immature Granulocyte % (Auto) 0, Neutrophils (%) (Auto) 55, Lymphocytes (%) (Auto) 26, Monocytes (%) (Auto) 13H, Eosinophils (%) (Auto) 5, Basophils (%) (Auto) 1, Neutrophils # (Auto) 2.8, Lymphocytes # (Auto) 1.3, Monocytes # (Auto) 0.7, Eosinophils # (Auto) 0.3, Basophils # (Auto) 0.1, Immature Granulocyte # (Auto) 0.0, Sodium Level 142, Potassium Level 3.4L, Chloride Level 112H, Carbon Dioxide Level 21, Anion Gap 9, Blood Urea Nitrogen 15, Creatinine 0.67, Estimat Glomerular Filtration Rate 99, BUN/Creatinine Ratio 22, Glucose Level 96, Calcium Level 8.2L, Corrected Calcium 9.3, Total Bilirubin 0.4, Aspartate Amino Transf (AST/SGOT) 21, Alanine Aminotransferase (ALT/SGPT) 14, Alkaline Phosphatase 74, Total Protein 4.4L, Albumin 2.6L 04/16/21 06:15: White Blood Count 6.4, Red Blood Count 3.08L, Hemoglobin 9.5L, Hematocrit 31L, Mean Corpuscular Volume 101H, Mean Corpuscular Hemoglobin 31, Mean Corpuscular Hemoglobin Concent 31L, Red Cell Distribution Width 16.3H, Platelet Count 323, Mean Platelet Volume 9.8, Immature Granulocyte % (Auto) 1, Neutrophils (%) (Auto) 32L, Lymphocytes (%) (Auto) 47H, Monocytes (%) (Auto) 11, Eosinophils (%) (Auto) 7, Basophils (%) (Auto) 2, Neutrophils # (Auto) 2.1, Lymphocytes # (Auto) 3.0, Monocytes # (Auto) 0.7, Eosinophils # (Auto) 0.5H, Basophils # (Auto) 0.1, Immature Granulocyte # (Auto) 0.0, Sodium Level 142, Potassium Level 4.0, Chloride Level 111H, Carbon Dioxide Level 21, Anion Gap 10, Blood Urea Nitrogen 13, Creatinine 0.72, Estimat Glomerular Filtration Rate 91, BUN/Creatinine Ratio 18, Glucose Level 82, Calcium Level 8.4L, Corrected Calcium 9.4, Total Bilirubin 0.3, Aspartate Amino Transf (AST/SGOT) 21, Alanine Aminotransferase (ALT/SGPT) 17, Alkaline Phosphatase 73, Total Protein 4.7L, Albumin 2.7L 04/16/21 17:29: Urine Color YELLOW, Urine Clarity CLEAR, Urine pH 6.0, Urine Specific [place] 1.010L, Urine Protein 1+H, Urine Glucose (UA) NEGATIVE, Urine Ketones NEGATIVE, Urine Nitrite NEGATIVE, Urine Bilirubin NEGATIVE, Urine Urobilinogen 0.2, Urine Leukocyte Esterase NEGATIVE, Urine RBC (Auto) 3+H, Urine RBC 25-50H, Urine WBC 5-10H, Urine Squamous Epithelial Cells NONE, Urine Renal Epithelial Cells NONE, Urine Crystals PRESENTH, Urine Calcium Oxalate Crystals FEWH, Urine Bacteria NEGATIVE, Urine Casts NONE, Urine Mucus NEGATIVE, Urine Culture Indicated NO 04/23/21 06:30: White Blood Count 6.5, Red Blood Count 3.22L, Hemoglobin 10.0L, Hematocrit 33L, Mean Corpuscular Volume 101H, Mean Corpuscular Hemoglobin 31, Mean Corpuscular Hemoglobin Concent 31L, Red Cell Distribution Width 16.0H, Platelet Count 324, Mean Platelet Volume 9.4, Immature Granulocyte % (Auto) 1, Neutrophils (%) (Auto) 47, Lymphocytes (%) (Auto) 35, Monocytes (%) (Auto) 11, Eosinophils (%) (Auto) 5, Basophils (%) (Auto) 1, Neutrophils # (Auto) 3.1, Lymphocytes # (Auto) 2.3, Monocytes # (Auto) 0.7, Eosinophils # (Auto) 0.3, Basophils # (Auto) 0.1, Immature Granulocyte # (Auto) 0.1, Sodium Level 142, Potassium Level 3.4L, Chloride Level 112H, Carbon Dioxide Level 21, Anion Gap 9, Blood Urea Nitrogen 16, Creatinine 0.75, Estimat Glomerular Filtration Rate 86, BUN/Creatinine Ratio 21, Glucose Level 77, Calcium Level 10.0, Corrected Calcium 11.3H, Total Bilirubin 0.3, Aspartate Amino Transf (AST/SGOT) 20, Alanine Aminotransferase (ALT/SGPT) 19, Alkaline Phosphatase 72, Total Protein 4.4L, Albumin 2.4L 04/30/21 06:14: White Blood Count 7.3, Red Blood Count 3.03L, Hemoglobin 9.5L, Hematocrit 31L, Mean Corpuscular Volume 102H, Mean Corpuscular Hemoglobin 31, Mean Corpuscular Hemoglobin Concent 31L, Red Cell Distribution Width 16.3H, Platelet Count 286, Mean Platelet Volume 9.8, Immature Granulocyte % (Auto) 1, Neutrophils (%) (Auto) 44, Lymphocytes (%) (Auto) 39, Monocytes (%) (Auto) 11, Eosinophils (%) (Auto) 4, Basophils (%) (Auto) 1, Neutrophils # (Auto) 3.2, Lymphocytes # (Auto) 2.9, Monocytes # (Auto) 0.8, Eosinophils # (Auto) 0.3, Basophils # (Auto) 0.1, Immature Granulocyte # (Auto) 0.0, Sodium Level 143, Potassium Level 3.6, Chloride Level 114H, Carbon Dioxide Level 21, Anion Gap 8, Blood Urea Nitrogen 17, Creatinine 0.72, Estimat Glomerular Filtration Rate 91, BUN/Creatinine Ratio 24, Glucose Level 85, Calcium Level 8.2L, Corrected Calcium 9.6, Total Bilirubin 0.2, Aspartate Amino Transf (AST/SGOT) 19, Alanine Aminotransferase (ALT/SGPT) 19, Alkaline Phosphatase 58, Total Protein 4.2L, Albumin 2.3L 05/02/21 23:10: Random Tobramycin Level > 10.0H 05/03/21 10:29: Tobramycin Level Trough 6.4*H 05/04/21 05:30: White Blood Count 6.2, Red Blood Count 2.90L, Hemoglobin 9.1L, Hematocrit 29L, Mean Corpuscular Volume 101H, Mean Corpuscular Hemoglobin 31, Mean Corpuscular Hemoglobin Concent 31L, Red Cell Distribution Width 16.3H, Platelet Count 259, Mean Platelet Volume 9.6, Immature Granulocyte % (Auto) 0, Neutrophils (%) (Auto) 51, Lymphocytes (%) (Auto) 34, Monocytes (%) (Auto) 11, Eosinophils (%) (Auto) 3, Basophils (%) (Auto) 1, Neutrophils # (Auto) 3.2, Lymphocytes # (Auto) 2.1, Monocytes # (Auto) 0.7, Eosinophils # (Auto) 0.2, Basophils # (Auto) 0.1, Immature Granulocyte # (Auto) 0.0, Sodium Level 144, Potassium Level 3.3L, Chloride Level 114H, Carbon Dioxide Level 21, Anion Gap 9, Blood Urea Nitrogen 18, Creatinine 0.70, Estimat Glomerular Filtration Rate 94, BUN/Creatinine Ratio 26, Glucose Level 79, Calcium Level 8.2L, Corrected Calcium 9.6, Total Bilirubin 0.3, Aspartate Amino Transf (AST/SGOT) 18, Alanine Aminotransferase (ALT/SGPT) 18, Alkaline Phosphatase 50, Total Protein 4.2L, Albumin 2.2L, Random Tobramycin Level 2.6L 05/04/21 15:02: Tobramycin Level Peak 9.0 05/05/21 01:15: Random Tobramycin Level 4.7 05/05/21 15:00: Tobramycin Level Trough 2.7*H 05/07/21 07:35: White Blood Count 5.3, Red Blood Count 3.17L, Hemoglobin 10.1L, Hematocrit 33L, Mean Corpuscular Volume 103H, Mean Corpuscular Hemoglobin 32, Mean Corpuscular Hemoglobin Concent 31L, Red Cell Distribution Width 16.1H, Platelet Count 285, Mean Platelet Volume 9.6, Immature Granulocyte % (Auto) 0, Neutrophils (%) (Auto) 47, Lymphocytes (%) (Auto) 37, Monocytes (%) (Auto) 10, Eosinophils (%) (Auto) 5, Basophils (%) (Auto) 1, Neutrophils # (Auto) 2.5, Lymphocytes # (Auto) 2.0, Monocytes # (Auto) 0.5, Eosinophils # (Auto) 0.3, Basophils # (Auto) 0.0, Immature Granulocyte # (Auto) 0.0, Sodium Level 143, Potassium Level 3.7, Chloride Level 112H, Carbon Dioxide Level 19L, Anion Gap 12, Blood Urea Nitrogen 13, Creatinine 0.70, Estimat Glomerular Filtration Rate 94, BUN/Creatinine Ratio 19, Glucose Level 88, Calcium Level 9.0, Corrected Calcium 10.2H, Total Bilirubin 0.3, Aspartate Amino Transf (AST/SGOT) 24, Alanine Aminotransferase (ALT/SGPT) 23, Alkaline Phosphatase 58, Total Protein 4.8L, Albumin 2.5L 05/08/21 07:30: Tobramycin Level Trough 1.0 05/08/21 13:32: Tobramycin Level Trough 1.1 Pending Labs Laboratory Tests 04/07/21 06:00: White Blood Count 6.6, Red Blood Count 2.82, Hemoglobin 8.6, Hematocrit 29, Mean Corpuscular Volume 101, Mean Corpuscular Hemoglobin 31, Mean Corpuscular Hemoglobin Concent 30, Red Cell Distribution Width 16.2, Platelet Count 237, Gerda n Platelet Volume 9.3, Immature Granulocyte % (Auto) 1, Neutrophils (%) (Auto) 45, Lymphocytes (%) (Auto) 38, Monocytes (%) (Auto) 10, Eosinophils (%) (Auto) 6, Basophils (%) (Auto) 1, Neutrophils # (Auto) 3.0, Lymphocytes # (Auto) 2.5, Monocytes # (Auto) 0.7, Eosinophils # (Auto) 0.4, Basophils # (Auto) 0.1, Immature Granulocyte # (Auto) 0.0, Sodium Level 142, Potassium Level 3.6, Chloride Level 114, Carbon Dioxide Level 20, Anion Gap 8, Blood Urea Nitrogen 12, Creatinine 0.66, Estimat Glomerular Filtration Rate 100, BUN/Creatinine Ratio 18, Glucose Level 77, Calcium Level 8.0, Corrected Calcium 9.0, Total Bilirubin 0.4, Aspartate Amino Transf (AST/SGOT) 18, Alanine Aminotransferase (ALT/SGPT) 13, Alkaline Phosphatase 65, Total Protein 4.6, Albumin 2.8 04/11/21 11:35: White Blood Count 5.1, Red Blood Count 2.78, Hemoglobin 8.5, Hematocrit 28, Mean Corpuscular Volume 101, Mean Corpuscular Hemoglobin 31, Mean Corpuscular Hemoglobin Concent 30, Red Cell Distribution Width 16.4, Platelet Count 225, Mean Platelet Volume 10.2, Immature Granulocyte % (Auto) 0, Neutrophils (%) (Auto) 55, Lymphocytes (%) (Auto) 26, Monocytes (%) (Auto) 13, Eosinophils (%) (Auto) 5, Basophils (%) (Auto) 1, Neutrophils # (Auto) 2.8, Lymphocytes # (Auto) 1.3, Monocytes # (Auto) 0.7, Eosinophils # (Auto) 0.3, Basophils # (Auto) 0.1, Immature Granulocyte # (Auto) 0.0, Sodium Level 142, Potassium Level 3.4, Chloride Level 112, Carbon Dioxide Level 21, Anion Gap 9, Blood Urea Nitrogen 15, Creatinine 0.67, Estimat Glomerular Filtration Rate 99, BUN/Creatinine Ratio 22, Glucose Level 96, Calcium Level 8.2, Corrected Calcium 9.3, Total Bilirubin 0.4, Aspartate Amino Transf (AST/SGOT) 21, Alanine Aminotransferase (ALT/SGPT) 14, Alkaline Phosphatase 74, Total Protein 4.4, Albumin 2.6 04/16/21 06:15: White Blood Count 6.4, Red Blood Count 3.08, Hemoglobin 9.5, Hematocrit 31, Mean Corpuscular Volume 101, Mean Corpuscular Hemoglobin 31, Mean Corpuscular Hemoglobin Concent 31, Red Cell Distribution Width 16.3, Platelet Count 323, Mean Platelet Volume 9.8, Immature Granulocyte % (Auto) 1, Neutrophils (%) (Auto) 32, Lymphocytes (%) (Auto) 47, Monocytes (%) (Auto) 11, Eosinophils (%) (Auto) 7, Basophils (%) (Auto) 2, Neutrophils # (Auto) 2.1, Lymphocytes # (Auto) 3.0, Monocytes # (Auto) 0.7, Eosinophils # (Auto) 0.5, Basophils # (Auto) 0.1, Immature Granulocyte # (Auto) 0.0, Sodium Level 142, Potassium Level 4.0, Chloride Level 111, Carbon Dioxide Level 21, Anion Gap 10, Blood Urea Nitrogen 13, Creatinine 0.72, Estimat Glomerular Filtration Rate 91, BUN/Creatinine Ratio 18, Glucose Level 82, Calcium Level 8.4, Corrected Calcium 9.4, Total Bilirubin 0.3, Aspartate Amino Transf (AST/SGOT) 21, Alanine Aminotransferase (ALT/SGPT) 17, Alkaline Phosphatase 73, Total Protein 4.7, Albumin 2.7 04/16/21 17:29: Urine Color YELLOW, Urine Clarity CLEAR, Urine pH 6.0, Urine Specific [place] 1.010, Urine Protein 1+, Urine Glucose (UA) NEGATIVE, Urine Ketones NEGATIVE, Urine Nitrite NEGATIVE, Urine Bilirubin NEGATIVE, Urine Urobilinogen 0.2, Urine Leukocyte Esterase NEGATIVE, Urine RBC (Auto) 3+, Urine RBC 25-50, Urine WBC 5- 10, Urine Squamous Epithelial Cells NONE, Urine Renal Epithelial Cells NONE, Urine Crystals PRESENT, Urine Calcium Oxalate Crystals FEW, Urine Bacteria NEGATIVE, Urine Casts NONE, Urine Mucus NEGATIVE, Urine Culture Indicated NO 04/23/21 06:30: White Blood Count 6.5, Red Blood Count 3.22, Hemoglobin 10.0, Hematocrit 33, Mean Corpuscular Volume 101, Mean Corpuscular Hemoglobin 31, Mean Corpuscular Hemoglobin Concent 31, Red Cell Distribution Width 16.0, Platelet Count 324, Mean Platelet Volume 9.4, Immature Granulocyte % (Auto) 1, Neutrophils (%) (Auto) 47, Lymphocytes (%) (Auto) 35, Monocytes (%) (Auto) 11, Eosinophils (%) (Auto) 5, Basophils (%) (Auto) 1, Neutrophils # (Auto) 3.1, Lymphocytes # (Auto) 2.3, Monocytes # (Auto) 0.7, Eosinophils # (Auto) 0.3, Basophils # (Auto) 0.1, Immature Granulocyte # (Auto) 0.1, Sodium Level 142, Potassium Level 3.4, Chloride Level 112, Carbon Dioxide Level 21, Anion Gap 9, Blood Urea Nitrogen 16, Creatinine 0.75, Estimat Glomerular Filtration Rate 86, BUN/Creatinine Ratio 21, Glucose Level 77, Calcium Level 10.0, Corrected Calcium 11.3, Total Bilirubin 0.3, Aspartate Amino Transf (AST/SGOT) 20, Alanine Aminotransferase (ALT/SGPT) 19, Alkaline Phosphatase 72, Total Protein 4.4, Albumin 2.4 04/30/21 06:14: White Blood Count 7.3, Red Blood Count 3.03, Hemoglobin 9.5, Hematocrit 31, Mean Corpuscular Volume 102, Mean Corpuscular Hemoglobin 31, Mean Corpuscular Hemoglobin Concent 31, Red Cell Distribution Width 16.3, Platelet Count 286, Mean Platelet Volume 9.8, Immature Granulocyte % (Auto) 1, Neutrophils (%) (Auto) 44, Lymphocytes (%) (Auto) 39, Monocytes (%) (Auto) 11, Eosinophils (%) (Auto) 4, Basophils (%) (Auto) 1, Neutrophils # (Auto) 3.2, Lymphocytes # (Auto) 2.9, Monocytes # (Auto) 0.8, Eosinophils # (Auto) 0.3, Basophils # (Auto) 0.1, Immature Granulocyte # (Auto) 0.0, Sodium Level 143, Potassium Level 3.6, Chloride Level 114, Carbon Dioxide Level 21, Anion Gap 8, Blood Urea Nitrogen 17, Creatinine 0.72, Estimat Glomerular Filtration Rate 91, BUN/Creatinine Ratio 24, Glucose Level 85, Calcium Level 8.2, Corrected Calcium 9.6, Total Bilirubin 0.2, Aspartate Amino Transf (AST/SGOT) 19, Alanine Aminotransferase (ALT/SGPT) 19, Alkaline Phosphatase 58, Total Protein 4.2, Albumin 2.3 05/02/21 23:10: Random Tobramycin Level > 10.0 05/03/21 10:29: Tobramycin Level Trough 6.4 05/04/21 05:30: White Blood Count 6.2, Red Blood Count 2.90, Hemoglobin 9.1, Hematocrit 29, Mean Corpuscular Volume 101, Mean Corpuscular Hemoglobin 31, Mean Corpuscular Hemoglobin Concent 31, Red Cell Distribution Width 16.3, Platelet Count 259, Mean Platelet Volume 9.6, Immature Granulocyte % (Auto) 0, Neutrophils (%) (Auto) 51, Lymphocytes (%) (Auto) 34, Monocytes (%) (Auto) 11, Eosinophils (%) (Auto) 3, Basophils (%) (Auto) 1, Neutrophils # (Auto) 3.2, Lymphocytes # (Auto) 2.1, Monocytes # (Auto) 0.7, Eosinophils # (Auto) 0.2, Basophils # (Auto) 0.1, Immature Granulocyte # (Auto) 0.0, Sodium Level 144, Potassium Level 3.3, Chloride Level 114, Carbon Dioxide Level 21, Anion Gap 9, Blood Urea Nitrogen 18, Creatinine 0.70, Estimat Glomerular Filtration Rate 94, BUN/Creatinine Ratio 26, Glucose Level 79, Calcium Level 8.2, Corrected Calcium 9.6, Total Bilirubin 0.3, Aspartate Amino Transf (AST/SGOT) 18, Alanine Aminotransferase (ALT/SGPT) 18, Alkaline Phosphatase 50, Total Protein 4.2, Albumin 2.2, Random Tobramycin Level 2.6 05/04/21 15:02: Tobramycin Level Peak 9.0 05/05/21 01:15: Random Tobramycin Level 4.7 05/05/21 15:00: Tobramycin Level Trough 2.7 05/07/21 07:35: White Blood Count 5.3, Red Blood Count 3.17, Hemoglobin 10.1, Hematocrit 33, Mean Corpuscular Volume 103, Mean Corpuscular Hemoglobin 32, Mean Corpuscular Hemoglobin Concent 31, Red Cell Distribution Width 16.1, Platelet Count 285, Mean Platelet Volume 9.6, Immature Granulocyte % (Auto) 0, Neutrophils (%) (Auto) 47, Lymphocytes (%) (Auto) 37, Monocytes (%) (Auto) 10, Eosinophils (%) (Auto) 5, Basophils (%) (Auto) 1, Neutrophils # (Auto) 2.5, Lymphocytes # (Auto) 2.0, Monocytes # (Auto) 0.5, Eosinophils # (Auto) 0.3, Basophils # (Auto) 0.0, Immature Granulocyte # (Auto) 0.0, Sodium Level 143, Potassium Level 3.7, Chloride Level 112, Carbon Dioxide Level 19, Anion Gap 12, Blood Urea Nitrogen 13, Creatinine 0.70, Estimat Glomerular Filtration Rate 94, BUN/Creatinine Ratio 19, Glucose Level 88, Calcium Level 9.0, Corrected Calcium 10.2, Total Bilirubin 0.3, Aspartate Amino Transf (AST/SGOT) 24, Alanine Aminotransferase (ALT/SGPT) 23, Alkaline Phosphatase 58, Total Protein 4.8, Albumin 2.5 05/08/21 07:30: Tobramycin Level Trough 1.0 05/08/21 13:32: Tobramycin Level Trough 1.1 Discharge Home Medications: Active Scripts Active [Tobramycin] 190 Mg IV Q48H 10 Days Detrol LA (Tolterodine Tartrate) 4 Mg Cap 4 Mg PO HS Transderm-Scop (Scopolamine) 1 Each Patch.td72 1.5 Mg TD Q72H Venlafaxine HCl ER (Venlafaxine HCl) 75 Mg Cap.er.24h 75 Mg PO DAILY@0700 Sertraline HCl 50 Mg Tablet 100 Mg PO DAILY Prevalite Packet (Cholestyramine/Aspartame) 4 Gm Powd.pack 4 Gm PO ACHS PRN Santyl (Collagenase) 30 Gm Oint..gm. 1 Applic TP BID APPLY TO SACRAL WOUND EVERY DAY AND SUPERVISOR [employer] Venelex Ointment ([place]/Swiss Oil) 60 Gm Oint...g. 1 Applic TP UD APPLY TO SACRUM WITH EVERY SHIFT CHANGE Ondansetron Odt (Ondansetron) 4 Mg Tab.rapdis 4 Mg PO Q8H PRN Pentasa (Mesalamine) 250 Mg Capsule.er 250 Mg PO TID Oxybutynin Chloride 5 Mg Tablet 5 Mg PO TID Multivitamin 1 Each Tablet 1 Each PO DAILY Antifungal Cream (Miconazole Nitrate) 14 Gm Cream..g. 1 Applic TP Q8H PRN Melatonin 5 Mg Tablet 5 Mg PO HS Ultra A-D (Loperamide HCl) 2 Mg Tablet 2 Mg PO DAILY Hydrocodone-Acetamin 7.5-325 (Hydrocodone/Acetaminophen) 1 Each Tablet 1 Each PO QID Ferrous Sulfate 325 Mg Tablet.dr 325 Mg PO DAILY Vitamin D2 (Ergocalciferol (Vitamin D2)) 1,250 Mcg Capsule 1,250 Mcg PO MON Eliquis (Apixaban) 5 Mg Tablet 5 Mg PO BID Atorvastatin Calcium 40 Mg Tablet 40 Mg PO HS Atenolol 25 Mg Tablet 25 Mg PO BID HOLD FOR SBP <100 OR PULSE <60 Aspirin 81 Mg Tab.chew 81 Mg PO DAILY Proair Hfa (Albuterol Sulfate) 1 Puff Puff 2 Puff IH Q6H PRN Acidophilus-Pectin Capsule (Lactobacillus Acidophilus/Pect) 1 Each Capsule 1 Each PO BID Reported Tylenol (Acetaminophen) 325 Mg Tablet 650 Mg PO Q4H PRN Instructions to patient/family Please see electronic discharge instructions given to patient. Diagnosis/Problems Diagnosis/Problems (1) Post covid-19 condition, unspecified Status: Chronic (2) Sacral decubitus ulcer, stage IV Status: Chronic (3) Severe sepsis Status: Acute (4) UTI (urinary tract infection) TERRA EDWARDS DO May 08, 2021 05:58
[2021-05-08] MEDS: CEFEPIME INJECTION 2,000 MG in NS (IVPB) 50 ML IV SCH (06:09)
[2021-05-08] MEDS: VENlafaxine XR 75 MG (EFFEXOR XR) CAP PO SCH (06:10)
[2021-05-08] MEDS: CATHETER FLUSH 10 ML SYR IV SCH ×2 (06:10→14:00)
[2021-05-08] MEDS: MULTIVIT W/MINERALS TAB (THERAGRAN M) PO SCH (06:10)
[2021-05-08 07:47] VITALS: BP 100/54
[2021-05-08] MEDS: LACTOBACILLUS ACIDOPHILUS (PROBIOTIC) CAPSULE PO SCH ×2 (08:49→14:02)
[2021-05-08] MEDS: APIXABAN 5 MG (ELIQUIS) TABLET PO SCH (08:49)
[2021-05-08] MEDS: FERROUS SULF 325 MG (IRON) TAB PO SCH (08:49)
[2021-05-08] MEDS: SERTRALINE 50 MG (ZOLOFT) TABLET PO SCH (08:49)
[2021-05-08] MEDS: MESALAMINE 250 MG (PENTASA) CAP PO SCH ×2 (08:49→14:02)
[2021-05-08] MEDS: OXYBUTYNIN (DITROPAN) 5 MG TAB PO SCH ×2 (08:49→14:02)
[2021-05-08] MEDS: HYDROcodone/APAP 7.5 MG/325 MG (LORTAB, LORCET PLUS) TABLET PO SCH ×2 (08:50→14:03)
[2021-05-08] MEDS: polyethylene glycoL POWDER 17 GM (MIRALAX) PACK PO SCH (09:40)
[2021-05-08] MEDS: ATENOLOL 25 MG (TENORMIN) TAB PO SCH (09:40)
[2021-05-08] MEDS: SCOPOLAMINE 1.5 MG (TRANSDERM-SCOP) PATCH TD SCH (10:16)
[2021-05-08] MEDS ORDERED: TOBRAMYCIN IV (10:53)
[2021-05-08] MEDS: SCOPOLAMINE PATCH REMOVAL TP SCH (11:23)
--- NOTE | 2021-05-08 12:56 | Therapy Team Discharge Summary ---
Therapy Discharge Summary Discharge Recommendations Date of Discharge 05/08/21 Therapy D/C Recommendations: Home w/ Family Support, Occupational Therapy Home Care, Homemaker Support Occupational Therapy Pt. admitted to ARU with significant debility d/t post-covid syndrome. At time of eval, pt was dependent for all functional transfers, LB dressing, toileting, and bathing, max a for upper body dressing, and SBA-CGA for oral care. While on rehab, OT focused on functional transfers, strengthening, balance, safety, endurance and activity tolerance. Pt made good progress while here and met all of her custodial goals. She is now mod I for all ADLs and functional transfers. Pt is now discharged from this facility and will be discharged from OT. Decreased Activ Tolerance, Decreased UE Strength, Impaired Funct Balance, Impaired I ADL's, Impaired Self-Care Skills PT Air Sealing Technician Goals Air Sealing Technician Goals PT Air Sealing Technician Goals Time Frame: May 18, 2021 Roll Left to Right (QC): 6 Sit to Lying (QC): 6 Lying-Sitting on Side/Bed(QC): 6 Sit to Stand (QC): 4 Chair/[id number] Xfer(QC): 4 Car Transfer (QC): 4 Does the Patient Walk: Yes Walk 10 feet (QC): 3 Walk 10ft-Uneven Surface(QC): 3 Walk 50ft with 2 Turns (QC): 3 Walk 150 ft (QC): 3 Does the Pt use WC or Scooter?: Yes Wheel 50 feet with 2 turns (QC: 6 1 Step (curb) (QC): 2 4 Steps (QC): 2 12 Steps (QC): 88 Picking up an Object (QC): 3 OT Nursing Home Goals Nursing Home Goals Time Frame: May 04, 2021 Eating (QC): 6 (met) Oral Hygiene (QC): 5 (met) Shower/Bathe Self (QC): 4 (met) Upper Body Dressing (QC): 5 (met) Lower Body Dressing (QC): 4 (met) On/Off Footwear (QC): 4 (met) Toileting Hygiene (QC): 4 (met) Toilet/Commode Transfer (QC): 4 1=Demonstrate adherence to instructed precautions during ADL tasks. 2=Patient will verbalize/demonstrate understanding of assistive devices/mod ifications for ADL. 3=Patient will improve strength/tolerance for activity to enable patient to perform ADL's. Latoya Becker OT May 08, 2021 12:56
[2021-05-08] MEDS ORDERED: [UNRECOGNIZED DRUG - REMARK] XX NR (13:00)
[2021-05-08] MEDS: NS IV SCH (14:01)
[2021-05-08] MEDS: TOBRAMYCIN IV SCH (14:01)
--- NOTE | 2021-05-08 15:08 | Therapy Team Discharge Summary ---
Therapy Discharge Summary Discharge Recommendations Date of Discharge Therapy D/C Recommendations: Home w/ Family Support, Occupational Therapy Home Care, Homemaker Support Physical Therapy Patient came to rehab with Severe Sepsis, UTI, Sacral ulcer, Post COVID. Upon evaluation patient performed rolling and supine <-> sit with min/mod assist, dependent for all other mobility except WC 150' with min/mod assist. Patient has been performing bed mobility and transfer training, balance and endurance training, functional strengthening, gait training, and education. Patient has made fair progress but has not met her fdc goals for ambulation and stairs. Now, patient performs rolling and supine <-> sit with independence, sit <-> stand and transfers with independence, car transfer with setup, ambulates 12' in the parallel bars with CGA, and can propel a manual WC 150' with independence. Patient is discharging from this facility today and will be discharged from PT at this time. Occupational Therapy Decreased Activ Tolerance, Decreased UE Strength, Impaired Funct Balance, Impaired I ADL's, Impaired Self-Care Skills PT Mcfp Goals Vice [employer] Goals PT Mcfp Goals Time Frame: May 18, 2021 Roll Left to Right (QC): 6 Sit to Lying (QC): 6 Lying-Sitting on Side/Bed(QC): 6 Sit to Stand (QC): 4 Chair/[id number]-[id number] Xfer(QC): 4 Car Transfer (QC): 4 Does the Patient Walk: Yes Walk 10 feet (QC): 3 Walk 10ft-Uneven Surface(QC): 3 Walk 50ft with 2 Turns (QC): 3 Walk 150 ft (QC): 3 Does the Pt use WC or Scooter?: Yes Wheel 50 feet with 2 turns (QC: 6 1 Step (curb) (QC): 2 4 Steps (QC): 2 12 Steps (QC): 88 Picking up an Object (QC): 3 OT Mcfp Goals Mcfp Goals Time Frame: May 04, 2021 Eating (QC): 6 (met) Oral Hygiene (QC): 5 (met) Shower/Bathe Self (QC): 4 (met) Upper Body Dressing (QC): 5 (met) Lower Body Dressing (QC): 4 (met) On/Off Footwear (QC): 4 (met) Toileting Hygiene (QC): 4 (met) Toilet/Commode Transfer (QC): 4 1=Demonstrate adherence to instructed precautions during ADL tasks. 2=Patient will verbalize/demonstrate understanding of assistive devices/modifications for ADL. 3=Patient will improve strength/tolerance for activity to enable patient to perform ADL's. MAURO MOORE PT May 08, 2021 15:08
[2021-05-08 15:16] VITALS: BP 100/54
== END 2021-05-08 15:16 | disposition home health service (06) | DRG 91 ==
PROVIDERS: ADMIT Internal Medicine; ATTEND Internal Medicine
DX: G72.81 Critical illness myopathy (principal); L89.154 Pressure ulcer of sacral region, stage 4; M46.28 Osteomyelitis of vertebra, sacral and sacrococcygeal region; E46 Unspecified protein-calorie malnutrition; I82.90 Acute embolism and thrombosis of unspecified vein; U09.9 Post COVID-19 condition, unspecified; M21.372 Foot drop, left foot; M24.575 Contracture, left foot; M24.574 Contracture, right foot; B96.5 Pseudomonas (aeruginosa) (mallei) (pseudomallei) as the cause of diseases classified elsewhere; D64.9 Anemia, unspecified; E87.6 Hypokalemia; E11.40 Type 2 diabetes mellitus with diabetic neuropathy, unspecified; F32.A Depression, unspecified; F41.9 Anxiety disorder, unspecified; R15.9 Full incontinence of feces; N32.89 Other specified disorders of bladder; R33.9 Retention of urine, unspecified; R11.0 Nausea; Z68.34 Body mass index [BMI] 34.0-34.9, adult; Z79.01 Long term (current) use of anticoagulants; Z79.82 Long term (current) use of aspirin
CPT/HCPCS: 36415; 80053; 80200; 81000; 85025; 94760

== ENCOUNTER → 2021-05-10 | Outpatient (CLI) | payer BC ==
[~2021-05-10] MED LIST changes: +CHOL4PAC3 PO; +SCOP1PAT10 TD; +TOBRAMYCIN IV; +TOLTA4 PO; +VENL75CA93 PO
== END ==
LOC: WOUNDCARE 12:55
PROVIDERS: ATTEND Family Medicine
DX: L89.154 Pressure ulcer of sacral region, stage 4 (principal); M46.28 Osteomyelitis of vertebra, sacral and sacrococcygeal region; B96.5 Pseudomonas (aeruginosa) (mallei) (pseudomallei) as the cause of diseases classified elsewhere; U09.9 Post COVID-19 condition, unspecified; E44.0 Moderate protein-calorie malnutrition
CPT/HCPCS: 11042

== ENCOUNTER → 2021-05-16 | Outpatient (CLI) | payer BC | LOC: WOUNDCARE 12:50 | PROVIDERS: ATTEND Family Medicine | DX: L89.154 Pressure ulcer of sacral region, stage 4 (principal); M46.28 Osteomyelitis of vertebra, sacral and sacrococcygeal region; B96.5 Pseudomonas (aeruginosa) (mallei) (pseudomallei) as the cause of diseases classified elsewhere; U09.9 Post COVID-19 condition, unspecified; E44.0 Moderate protein-calorie malnutrition; I96 Gangrene, not elsewhere classified | CPT/HCPCS: 11042 ==

== ENCOUNTER → 2021-05-23 | Outpatient (CLI) | payer BC | LOC: WOUNDCARE 13:11 | PROVIDERS: ATTEND Family Medicine | DX: L89.154 Pressure ulcer of sacral region, stage 4 (principal); B96.5 Pseudomonas (aeruginosa) (mallei) (pseudomallei) as the cause of diseases classified elsewhere; U09.9 Post COVID-19 condition, unspecified; E44.0 Moderate protein-calorie malnutrition; B37.2 Candidiasis of skin and nail; B35.4 Tinea corporis; I96 Gangrene, not elsewhere classified | CPT/HCPCS: 11042 ==

== ENCOUNTER → 2021-05-31 | Outpatient (CLI) | payer BC | LOC: WOUNDCARE 14:46 | PROVIDERS: ATTEND Family Medicine | DX: I96 Gangrene, not elsewhere classified (principal); L89.154 Pressure ulcer of sacral region, stage 4; M46.28 Osteomyelitis of vertebra, sacral and sacrococcygeal region; B96.5 Pseudomonas (aeruginosa) (mallei) (pseudomallei) as the cause of diseases classified elsewhere; U09.9 Post COVID-19 condition, unspecified; E44.0 Moderate protein-calorie malnutrition; B37.2 Candidiasis of skin and nail; B35.4 Tinea corporis | CPT/HCPCS: 11042; 87070; 87077; 87186; 87205 ==

== ENCOUNTER → 2021-06-07 | Outpatient (CLI) | payer BC | LOC: LAB 15:31 | PROVIDERS: ATTEND Family Medicine | DX: L89.154 Pressure ulcer of sacral region, stage 4 (principal); M46.28 Osteomyelitis of vertebra, sacral and sacrococcygeal region; B96.5 Pseudomonas (aeruginosa) (mallei) (pseudomallei) as the cause of diseases classified elsewhere; U09.9 Post COVID-19 condition, unspecified; E44.0 Moderate protein-calorie malnutrition; B37.2 Candidiasis of skin and nail; B35.4 Tinea corporis | CPT/HCPCS: 36415; 85652; 86141 ==

== ENCOUNTER → 2021-06-07 | Outpatient (CLI) | payer BC | LOC: WOUNDCARE 14:51 | PROVIDERS: ATTEND Family Medicine | DX: L89.154 Pressure ulcer of sacral region, stage 4 (principal); M46.28 Osteomyelitis of vertebra, sacral and sacrococcygeal region; U09.9 Post COVID-19 condition, unspecified; E44.0 Moderate protein-calorie malnutrition; B37.2 Candidiasis of skin and nail; B35.4 Tinea corporis; B95.2 Enterococcus as the cause of diseases classified elsewhere | CPT/HCPCS: 11042 ==

== ENCOUNTER → 2021-06-14 | Outpatient (CLI) | payer BC | LOC: WOUNDCARE 14:51 | PROVIDERS: ATTEND Family Medicine | DX: L89.154 Pressure ulcer of sacral region, stage 4 (principal); M46.28 Osteomyelitis of vertebra, sacral and sacrococcygeal region; U09.9 Post COVID-19 condition, unspecified; E44.0 Moderate protein-calorie malnutrition | CPT/HCPCS: 11042 ==

== ENCOUNTER → 2021-06-27 | Outpatient (CLI) | payer BC | LOC: WOUNDCARE 14:47 | PROVIDERS: ATTEND Family Medicine | DX: I96 Gangrene, not elsewhere classified (principal); L89.154 Pressure ulcer of sacral region, stage 4; M46.28 Osteomyelitis of vertebra, sacral and sacrococcygeal region; U09.9 Post COVID-19 condition, unspecified; E44.0 Moderate protein-calorie malnutrition | CPT/HCPCS: 11042 ==

== ENCOUNTER → 2021-07-04 | Outpatient (CLI) | payer BC | LOC: WOUNDCARE 14:46 | PROVIDERS: ATTEND Family Medicine | DX: L89.154 Pressure ulcer of sacral region, stage 4 (principal); M46.28 Osteomyelitis of vertebra, sacral and sacrococcygeal region; U09.9 Post COVID-19 condition, unspecified; E44.0 Moderate protein-calorie malnutrition; B37.2 Candidiasis of skin and nail; I96 Gangrene, not elsewhere classified | CPT/HCPCS: 11042 ==

== ENCOUNTER → 2021-07-18 | Outpatient (CLI) | payer BC | LOC: WOUNDCARE 14:49 | PROVIDERS: ATTEND Family Medicine | DX: L89.154 Pressure ulcer of sacral region, stage 4 (principal); M46.28 Osteomyelitis of vertebra, sacral and sacrococcygeal region; U09.9 Post COVID-19 condition, unspecified; E44.0 Moderate protein-calorie malnutrition; I96 Gangrene, not elsewhere classified | CPT/HCPCS: 11042 ==

== ENCOUNTER → 2021-07-25 | Outpatient (CLI) | payer BC | LOC: WOUNDCARE 14:46 | PROVIDERS: ATTEND Family Medicine | DX: L89.154 Pressure ulcer of sacral region, stage 4 (principal); M46.28 Osteomyelitis of vertebra, sacral and sacrococcygeal region; U09.9 Post COVID-19 condition, unspecified; E44.0 Moderate protein-calorie malnutrition | CPT/HCPCS: 11042 ==

== ENCOUNTER → 2021-08-08 | Outpatient (CLI) | payer BC | LOC: WOUNDCARE 14:52 | PROVIDERS: ATTEND Family Medicine | DX: I96 Gangrene, not elsewhere classified (principal); L89.154 Pressure ulcer of sacral region, stage 4; E44.0 Moderate protein-calorie malnutrition; E66.01 Morbid (severe) obesity due to excess calories; B37.2 Candidiasis of skin and nail; U09.9 Post COVID-19 condition, unspecified; Z68.34 Body mass index [BMI] 34.0-34.9, adult | CPT/HCPCS: 11042 ==

== ENCOUNTER → 2021-08-15 | Outpatient (CLI) | payer BC | LOC: WOUNDCARE 14:44 | PROVIDERS: ATTEND Family Medicine | DX: L89.154 Pressure ulcer of sacral region, stage 4 (principal); U09.9 Post COVID-19 condition, unspecified; E44.0 Moderate protein-calorie malnutrition; E66.01 Morbid (severe) obesity due to excess calories; B37.2 Candidiasis of skin and nail; I96 Gangrene, not elsewhere classified | CPT/HCPCS: 11042 ==